=== PATIENT | female | born 1955 | race Caucasian/White ===

== ENCOUNTER 2021-11-14 08:15 | Day surgery (SDC) | payer OTHER ==
[2021-11-14 08:49] VITALS: BP 102/63; TEMP 97.8; O2SAT 100; BMI 22.6
[2021-11-14 08:51] LABS: MPV 8.3 fL (7.6-11.3)
[2021-11-14 09:12] LABS: Protime INR 0.94
--- NOTE | 2021-11-14 11:59 | RAD REPORT ---
EXAM DESCRIPTION: CT - Spine Lumbar Wo Con - 11/14/2021 10:37 am CLINICAL HISTORY: Radiculopathy. MYELOGRAM SCAN PROTOCOL COMPARISON: No relevant comparisons available. TECHNIQUE: Axial noncontrast CT imaging of the lumbar spine was performed with coronal and sagittal re-formatted images. Myelogram protocol was utilized, however injection of contrast could not be perf ormed due to national shortage of the contrast material. All CT scans are performed using dose optimization technique as appropriate and may include automated exposure control or mA/KV adjustment according to patient size. FINDINGS: Postsurgical changes are present with hardware spanning L3 and L4. Stimulator wiring is pr esent. There is laminectomy noted at L3 and L4. 8 mm degenerative anterolisthesis of L4 on 5 is prese nt. Paraspinal tissues are normal in thickness. No paraspinal abscess or hematoma seen. There is no evidence of a significant canal or foraminal stenosis at any level. Go facet hypertrophy changes are noted at L4-5 and L5-S1. IMPRESSION: Exam was limited as there is currently a shortage of appropriate myelographic contrast m aterial and does we were unable to perform myelographic contrast injection at this time. This was dis cussed with the patient in person. Postoperative changes are present with hardware in place at C3-4. No hardware complication. Stimulato r device is present. Degenerative anterolisthesis is present of 8 mm of L4 on 5. Prominent facet hypertrophy is noted at L 4-5 bilaterally and L5-S1. No finding indicate high-grade canal stenosis or foraminal stenosis at any level.
== END 2021-11-14 10:38 | disposition home or self-care (01) ==
LOC: DS 08:15
PROVIDERS: ATTEND Anesthesiology
DX: M54.17 Radiculopathy, lumbosacral region (principal)
CPT/HCPCS: 36415; 72131; 85049; 85610; 85730

== ENCOUNTER 2021-11-28 21:54 | Emergency (ER) | payer OTHER ==
--- OUTSIDE RECORDS SUMMARY | 2021-11-28 22:07 | XMS REPORT | Continuity of Care Document ---
:1955 Author Organization [facility] t Address [address] [place] [address] Care Team Providers Name Role Phone MICHAEL ALBARRAN Primary Care Physician Unavailable LATISHA UP Attending Clinician Unavailable Michael Albarran MD Attending Clinician Jose Hernandez Attending Clinician BROWN_Sudhir_Keith_ Attending Clinician Unavailable Apryl Brizuela CMA Attending Clinician Unavailable Sami Moore MD Attending Clinician Abdiaziz_Pam Attending Clinician Unavailable Nae Nick MD Attending Clinician Rick Alex MD Attending Clinician MICHAEL ALBARRAN Attending Clinician Unavailable CAT HAAS Attending Clinician Unavailable SYSTEM, PROVIDER NOT IN Attending Clinician Unavailable GLADIS DALEY Attending Clinician Unavailable ABIMAEL PETTIT Attending Clinician Unavailable SAMI MOORE Attending Clinician Unavailable THIEN COCHRAN Attending Clinician Unavailable Yung Cole Attending Clinician Gaurav Jean Attending Clinician Melquiades Moore Attending Clinician Korin Lopez Attending Clinician Gaurav Montes De Oca Attending Clinician Rosey Foster Attending Clinician Sami Moore Attending Clinician Gladis Daley Attending Clinician BROWN_Sudhir_Keith_ Admitting Clinician Unavailable Senan_S Admitting Clinician Unavailable Nae Nick MD Admitting Clinician Payers Payer Name Policy Type Policy Number Effective Date Expiration Date S ourmarjan [place] ANTHEM [id number] 2021 00:00:00 BCBS (PPO) BCBS OS [id number] 2017 00:00:00 POS/PPO/EPO Problems Condition Condition Condition Status Onset Resolution Last Treating Co mments Source Name Details Category Date Date Treatment Clinician Date M54.17=RAD M54.17=RA Diagnosis Active 2021-11-25 Memoria ICULOPATHY DICULOPATH 11-12 09:45:00 l , Y, 00:00: [facility] LUMBOSACRA LUMBOSACRA 00 L REGION L REGION Active 11/12/2021 [facility] Lumbar Lumbar Disease Active 2018-03 Methodi radiculopa radiculopa 0-08 st thy thy 00:00: Hospita 00 l Peripheral Peripheral Disease Active 2018-03 M ethodi polyneurop polyneurop 0-08 st athy athy 00:00: Hospita 00 l I82.402 - I82.402 Diagnosis Active 2018-11-22 Memoria ACUTE - ACUTE 07-28 18:08:00 l EMBOLISM EMBOLISM 00:01: Delroy n AND AND 00 THOMBOS THOMBOS UNS UNS Active 07/28/2018 [facility] [place] Z12.31 - Z12.31 - Diagnosis Active 2017-08-27 Memoria ENCNTR ENCNTR 2-12 19:14:00 l SCREEN SCREEN 00:01: Jeffery MAMMOGRAM MAMMOGRAM 00 FOR MA FOR MA Active 04/19/2017 [facility] [place] SNAKE BITE SNAKE Diagnosis Active 2016-10-04 Memoria L FT BITE L FT 10-04 16:21:00 l Active 07:00: [facility] 10/04/2016 00 [facility] Vision Vision Disease Active [facility] Center Insomnia, Insomnia, Disease Active [facility] unspecifie unspecifie 3-27 Shannen kes d type d type 00:00: Medical 00 Center Elevated Elevated Disease Active [facility] random random 04-05 [facility] blood blood 00:00: Medical glucose glucose 00 Center level level Irritable Irritable Disease Active [facility] 04-05 [facility] 00 Center Gastroesop Gastroesop Disease Active [facility] hageal hageal 1- [facility] reflux reflux 00:00: Medical disease disease 00 Center without without esophagiti esophagiti s s Primary Primary Disease Active [facility] insomnia insomnia - [facility] 00:[facility] 00 Center Acute Acute Disease Active [facility] maxillary maxillary 1- Luke s sinusitis, sinusitis, 00:00: Me dical recurrence recurrence 00 Ce nter not not specified specified Intractabl Intractabl Disease Active 2015-03 M ethodi e chronic e chronic 0-20 st migraine migraine 00:00: Hospit a without without 00 l aura aura Chronic Chronic Disease Active 2015-03 Methodi neck pain neck pain 0-20 st 00:00: Hospita 00 l Muscle Muscle Disease Active 2015-03 Overview: Method i spasm spasm 0-[address] 00:00: g of this Hospita 00 note l might be different from the original. "Muscle Spasms of Head AND/OR Neck" Paresthesi Paresthesi Disease Active 2015-03 M ethodi a of lower a of lower 0-20 st extremity extremity 00:00: Hosp alicia 00 l Spasm of Spasm of Disease Active 2015-03 Metho di back back 0-20 st muscles muscles 00:00: Hospita 00 l Cervical Cervical Disease Active [facility] herniated herniated 8-04 [facility] disc disc 00:00: Medical 00 Center Cervical Cervical Disease Active [facility] spondylosi spondylosi 8-03 Shannen kes s without s without 00:00: Medi chanell myelopathy myelopathy 00 Ce nter Acute neck Acute neck Disease Active [facility] pain pain 8-03 [facility] 00:[facility] 00 Center Herniation Herniation Disease Active [facility] of of 10-08 [facility] cervical cervical 00:00: Medica l interverte interverte 00 Ce nter bral disc bral disc with with radiculopa radiculopa thy thy PINCHED PINCHED Diagnosis Active 2015-09-08 Memoria NERVE IN NERVE IN 09-07 07:25:00 l NECK NECK 00:00: Jeffery Active 00 09/08/2015 [facility] PAIN IN RT PAIN IN Diagnosis Active 2015-08-27 Memoria HAND RT HAND 08-25 15:38:00 l Active 00:00: Jeffery 08/26/2015 00 [facility] Colitis Colitis Disease Active [facility] 3[facility]03 [facility] 00[facility] 00 Center Diarrhea Diarrhea Disease Active [facility] 00 Center Nausea and Nausea and Disease Active [facility] vomiting vomiting 3-03 [facility] 00:[facility] 00 Center Restless Restless Disease Active [facility] leg leg 3[facility]03 [facility] syndrome syndrome 00:00: Medica l 00 Center Anxiety Anxiety Disease Active [facility] 3[facility] 00[facility]: [facility] 00 Center Lumbago Lumbago Disease Active [facility] 3[facility]03 [facility] 00 Center Chronic Chronic Disease Active [facility] pain pain 3-03 [facility] 00[facility]: [facility] 00 Center Dehydratio Dehydratio Disease Active [facility] n n 3-02 [facility] 00:00: Medical 00 Hensel 724.2 724.2 Diagnosis Active 2013-032015-06-06 Mem oria Active 03-21 07:29:00 l 01/19/2014 00:00: [place] alegre The 00 [place] 724.4 724.4 Diagnosis Active 2013-032013-12-28 Mem oria Active 14:59:00 l 12/28/2013 00:00: [place] alegre The 00 [place] 724.4, 724.4, Diagnosis Active 2013-032015-03-05 M emoria 996.40, 996.40, 0-23 16:20:00 l 724.02 724.02 00:00: Jeffery Active 00 12/28/2013 [facility] 351.9 - 351.9 - Diagnosis Active 2014-09-27 Memoria FACIAL FACIAL 7-14 11:03:00 l NERVE DI NERVE DI 00:01: Delroy n Active 00 09/18/2013 [facility] [place] 338.18 - 338.18 - Diagnosis Active 2014-09-27 Memoria ACUTE ACUTE 7- 10:56:00 l POSTOP PA POSTOP PA 00:01: Herm justo 724.4 - 724.4 - 00 LUMBOSA LUMBOSA [facility]06/[facility] LUMBAR Diagnosis Active 2014-09-17 Me moria SPONDYLOSI SPONDYLOSI 08-07 16:05:00 l S S Active 00:00: Jeffery 08/07/2013 00 [facility] V76.12 - V76.12 - Diagnosis Active 2013-10-31 Memoria SCREEN SCREEN - 23:18:00 l MAMMOGRA MAMMOGRA 00:01: Delroy n Active 00 09/27/2012 [facility] [place] V76.11 - V76.11 - Diagnosis Active 2013-10-31 Memoria SCREEN SCREEN 3- 23:18:00 l MAMMOGRA MAMMOGRA 00:01: Delroy n Active 00 06/01/2012 [facility] Backache Backache Problem Active 2019-02-27 Memoria (finding) (finding) 00:33:41 l Active Jeffery Problem 02/27/2019 [facility], [facility] Retention Retention Problem Active 2019-02-27 Memoria of urine of urine 00:33:41 l (disorder) (disorder) He rmann Active Problem 02/27/2019 [facility]N HTN Problem Active 2019-11-03 Memor ia (hypertens (hypertens 02:45:06 l ion) ion) Jeffery Active Problem 11/03/2019 [facility] GERD GERD Problem Active 2015-07-13 Memor ia (gastroeso (gastroeso 02:50:20 l phageal phageal Jeffery reflux reflux disease) disease) Active Problem 07/13/2015 [facility] Restless Restless Problem Active 2015-07-13 Memoria legs legs 02:50:20 l syndrome syndrome Delroy n [RLS] [RLS] Active Problem 07/13/2015 [facility] Peripheral Periphera Problem Active 2015-07-13 Memoria autonomic l 02:50:20 l neuropathy autonomic Her aldridge in neuropathy disorders in classified disorders elsewhere classified elsewhere Active Problem 07/13/2015 [facility] Gastropare Problem Active 2015-07-13 M emoria sis Gastropare 02:50:20 l sis Active Delroy n Problem 07/13/2015 [facility] Iron Iron Problem Active 2015-07-13 Memor ia deficiency deficiency 02:50:20 l anemia anemia [facility] Active Problem 07/13/2015 [facility] Lumbar Lumbar Problem Active 2015-07-13 Raúl holland radiculiti radiculiti 02:50:20 l s s Active [facility] Problem 07/13/2015 [facility] Anxiety Anxiety Problem Active 2015-07-13 Me moria state state 02:50:20 l Active [facility] Problem 07/13/2015 [facility] Chronic Chronic Problem Active 2015-07-13 Me moria pain pain 02:50:20 l syndrome syndrome Delroy n Active Problem 07/13/2015 [facility] Generalize Generaliz Problem Active 2015-07-13 Memoria d ed 02:50:20 l osteoarthr osteoarthr He wilber becker osis, involving involving multiple multiple sites sites Active Problem 07/13/2015 [facility] Insomnia, Insomnia, Problem Active 2015-07-13 Memoria unspecifie unspecifie 02:50:20 l d d Active Jeffery Problem 07/13/2015 [facility] Depressive Problem Active 2015-07-13 M emoria disorder Depressive 02:50:20 l disorder Jeffery Active Problem 07/13/2015 [facility] Mixed Mixed Problem Active 2021-04-01 Memor ia anxiety anxiety 08:01:21 l and and Jeffery depressive depressive disorder disorder (disorder) (disorder) Active Problem 04/01/2021 [facility] Dysphagia Dysphagia Problem Active 2021-04-01 Memoria (disorder) (disorder) 08:01:21 l Active Jeffery Problem 04/01/2021 [facility] Gastroesop Gastroeso Problem Active 2021-04-01 Memoria hageal phageal 08:01:21 l reflux reflux Jeffery disease disease (disorder) (disorder) Active Problem 04/01/2021 [facility] [place], [facility] History of History Problem Active 2021-04-01 Memoria - migraine of - 08:01:21 l (context-d migraine Herm justo ependent (context-d category) ependent category) Active Problem 04/01/2021 [facility] Pain in Pain in Problem Active 2021-04-01 Me moria bilateral bilateral 08:01:21 l legs legs Jeffery (finding) (finding) Active Problem 04/01/2021 worse in right leg [facility] Recurrent Problem Active 2021-04-01 Me moria urinary Recurrent 08:01:21 l tract urinary Jeffery infection tract (disorder) infection (disorder) Active Problem 04/01/2021 [facility] Carpal Carpal Problem Active 2021-11-21 Raúl holland tunnel tunnel 05:23:40 l syndrome syndrome Dleroy n (disorder) (disorder) Active Problem 11/21/2021 [facility] Cervical Cervical Problem Active 2021-11-21 Memoria spondylosi spondylosi 05:23:40 l s s [facility] (disorder) (disorder) Active Problem 11/21/2021 [facility] Migraine Migraine Problem Active 2021-11-21 Memoria without without 05:23:40 l aura aura [facility] (disorder) (disorder) Active Problem 11/21/2021 [facility] Peripheral Periphera Problem Active 2021-11-21 Memoria nerve l nerve 05:23:40 l disease disease Jeffery (disorder) (disorder) Active Problem 11/21/2021 [facility] Postproced Postproce Problem Active 2021-11-21 Memoria ural state dural 05:23:40 l finding state [facility] (finding) finding (finding) Active Problem 11/21/2021 [facility] Neuro LUMBOSACRA LUMBOSACR Diagnosis Active 2014-09-17 Memoria L AL 16:05:00 l SPONDYLOSI SPONDYLOSI He wilber S S Active [facility] LUMBAR LUMBAR Diagnosis Active 2014-09-17 Me moria DISC DISC 16:05:00 l DISPLACEME DISPLACEME He wilber NT NT Active [facility] RADICULOPA Diagnosis Active 2021-11-25 Memoria THY, RADICULOPA 09:45:00 l LUMBOSACRA THY, Delroy n L REGION LUMBOSACRA L REGION Active [facility] History of Past Illness Condition Condition Condition Status Onset Resolution Last Treating Co mments Source Name Details Category Date Date Treatment Clinician Date Other Other Problem 2016-10-07 2016-10-07 M shira injury of injury of 10-04 00:37:18 00:37:18 l unspecifie unspecifie 05:00: Jc agosto body d body 00 region region 10/04/2016 7 [facility] Discharge Discharge Problem 2015-09-11 2015-09-11 Memoria Diagnosis: Diagnosis: 09-07 00:29:54 00:29:54 l Arm Arm 05:00: Jeffery paresthesi paresthesi 00 a, right a, right 09/08/2015 09/11/2015 [facility] Discharge Discharge Problem 2015-09-11 2015-09-11 Memoria Diagnosis: Diagnosis: 09-07 00:29:54 00:29:54 l Arm pain Arm pain 05:00: Delroy alegre 09/08/2015 00 09/11/2015 [facility] Discharge Discharge Problem 2015-09-11 2015-09-[facility] Diagnosis: Diagnosis: 09-07 00:29:54 00:29:54 l Neuropathi Neuropathi 05:00: Jc schwarz pain c pain 00 09/08/2015 09/11/2015 [facility] Discharge Discharge Problem 2015-08-30 2015-08-30 Memoria Diagnosis: Diagnosis: 08-25 03:16:15 03:16:15 l Osteoarthr Osteoarthr 05:00: Jc merino itis itis 00 08/26/2015 08/30/2015 [facility] Allergies, Adverse Reactions, Alerts Allergy Allergy Status Severity Reaction(s) Onset Inactive Treating Comm ents Source Name Type Date Date Clinician OXCARBAZ Allergy Active [facility] EPINE 6-23 [facility]: [facility] 00 Center Oxcarbaz Drug Active [facility] epine Allergy 6-23 [facility] 00:[facility]: Medical 00 Center Tapentad Propensi Active Unknown 2018-03 Metho di ol ty to Reaction 0-08 st adverse 00:00: Hospita reaction 00 l s to drug Oxcarbaz Propensi Active Unknown 2018-03 Metho di epine ty to Reaction 0-08 st adverse 00:00: Hospita reaction 00 l s to drug LAMOTRIG Allergy Active 2016-[address] [facility] [facility] INE 0-12 [facility] 00:00: Medical 00 Center Lamotrig Drug Active 2016-[address] ine Allergy 0-12 reaction( [facility] 00:00: s): Medical 00 unknown Center Codeine Propensi Active Nausea And 2015-03 Met hodi ty to Vomiting 0-20 st adverse 00:00: Hospita reaction 00 l s to drug Gabapent Propensi Active 2015-03 Gabapenti Met hodi in ty to 0-[address] adverse 00:00: [alc-cindi Hospit a reaction 00 pentin]: l s to Other drug reaction( s):Blurry vision Pregabal Propensi Active 2015-03 Other Method i in ty to 0-20 reaction( st adverse 00:00: s): Other Hospit a reaction 00 (See l s to Comments) drug Blurry visionOth er reaction( s): Other (See Comments) Blurry vision Tramadol Propensi Active Anaphylaxis 2015-03 M ethodi ty to 0-20 st adverse 00:00: Hospita reaction 00 l s to drug CODEINE Allergy Active Med N\\T\\V [facility] 10-29 00:00: 00 Codeine Propensi Active Nausea And [facility] ty to Vomiting 10-29 [facility] adverse 00:00: Medical reaction 00 Center s GABAPENT Allergy Active High Anaphylaxis [facility] IN 10-08 00:00: 00 TRAMADOL Allergy Active High Anaphylaxis 2015- [facility] 10-08 00:00: 00 Gabapent Drug Active Anaphylaxis, Blurry [facility] in Allergy Itching 10-08 visionOth [facility] 00:00: er Medical 00 reaction( Center s): decreases eyesight, Swelling of throat Tramadol Propensi Active Anaphylaxis 2015- [facility] ty to 10-08 [facility] adverse 00:00: Medical reaction 00 Center s PREGABAL Allergy Active Low Other [facility] IN 09-15 00:00: 00 Pregabal Drug Active Other (See Blurry [facility] in Allergy Comments), 09-15 visionBlu Shannen kes Itching, 00:00: rry Medical Anaphylaxis 00 visionOth Ce nter er reaction( s): decreases eyesight, Other Dilaudid Dilaudid Active Memori a l [facility] gabapent gabapent Active Memori a in in l Jeffery traMADol traMADol Active Memori a l Jeffery Lyrica Lyrica Active Severe Itching Memoria (finding), l Pharyngeal Delroy n swelling (finding) Family History Family Member Diagnosis Comments Start Date Stop Date Source Natural father Prostate cancer [facility] Natural father Arthritis [facility] Natural father Prostate cancer [facility] Natural mother Heart disease [facility] Natural mother Arthritis [facility] Natural mother Migraines [facility] Social History Social Habit Start Date Stop Date Quantity Comments Source History of tobacco Cigarette Smoker [facility] use [facility] Social History 2021-11-18 2021-11-18 [facility] 18:40:07 18:40:07 Alcohol intake 2021-08-28 2021-08-28 Current [facility] 00:00:00 00:00:00 non-drinker of Medical Ce nter alcohol (finding) Cigarettes smoked 2014-12-27 2014-12-27 [facility] Miguel Angel current (pack per 00:00:00 00:00:00 [facility] day) - Reported Cigarette 2014-12-27 2014-12-[address] [facility] [address] Luba pack-years 00:00:00 00:00:00 [facility] Tobacco use and 2014-12-27 2014-12-27 Never used [facility] St Shannen arriolas exposure 00:00:00 00:00:00 [facility] TobaccoUse: 2014-05-07 2014-05-07 [facility] 00:00:00 00:00:00 [birth year] [facility] [address] Shannen cosme 00:00:00 00:00:00 [facility] Smoking Status Start Date Stop Date Source Social History [facility] Medications Ordered Filled Start Stop Current Ordering Indication Dosage Frequency Signature Comments Components Source Medication Medication Date Date Medication? Clinician (SIG) Name Name Imitrex 100 Yes 100 mg = 1 Memoria mg oral 9-13 tab, PO, l tablet 19:15: Daily, PRN Christy nn 00 for migraine headache, # 9 tab, 0 Refill(s) topiramate Yes TAKE 1 Memor ia 100 mg oral 9-13 TABLET BY l tablet 18:43: MOUTH IN Jeffery 00 THE MORNING AND 2 TABLETS IN THE EVENING celecoxib Yes TAKE 1 Memori a 200 mg oral 9-13 CAPSULE BY l capsule 18:43: MOUTH ONCE Herm justo 00 DAILY baclofen 20 Yes TAKE 1 Raúl holland mg oral 9-13 TABLET BY l tablet 18:43: MOUTH [facility] 00 THREE TIMES DAILY rOPINIRole Yes TAKE 1 Memor ia 2 mg oral 9-13 TABLET BY l tablet 18:43: MOUTH Jeffery 00 THREE TIMES DAILY diazepam 10 Yes TAKE 1 Raúl holland mg oral 9-13 TABLET BY l tablet 18:43: MOUTH Jeffery 00 EVERY 8 HOURS NEEDED FOR ANXIETY . DO NOT EXCEED 3 PER 24 HOURS nitrofurant Yes 100 mg, Mem oria oin 13 PO, BID, # l 18:42: 14 cap, 0 00 Refill(s) omeprazole Yes PO, Daily, M emoria 9-13 0 l 18:41: Refill(s) Jeffery 00 ondansetron Yes ALLOW ONE [facility] (ZOFRAN-ODT 11-11 (1) TABLET Shannen kes ) 4 MG 00:00: TO Medical disintegrat 00 DISSOLVE Cent er ing tablet ON THE TONGUE EVERY 4 HOURS. ondansetron Yes ALLOW ONE [facility] (ZOFRAN-ODT 9-06 (1) TABLET Shannen kes ) 4 MG 00:00: TO Medical disintegrat 00 DISSOLVE Cent er ing tablet ON THE TONGUE EVERY 4 HOURS. topiramate Yes Persistent TAKE [address] [facility] (TOPAMAX) 9- headaches TABLET BY [facility] 100 MG 00:00: MOUTH IN Medical tablet 00 THE Center MORNING AND 2 TABLETS IN THE EVENING topiramate Yes Persistent TAKE [address] [facility] (TOPAMAX) 9-02 headaches TABLET BY [facility] 100 MG 00:00: MOUTH IN Medical tablet 00 THE Center MORNING AND 2 TABLETS IN THE EVENING diazePAM Yes Anxiety 10mg Take [address] [facility] (VALIUM) 10 -09 tablet (10 Shannen kes MG tablet 00:00: mg total) Med ical 00 by mouth Center every 8 (eight) hours as needed for Anxiety. Max Daily Amount: 30 mg diazePAM 2022-0 Yes Anxiety 10mg Take [address] [facility] (VALIUM) 10 -09 tablet (10 Shannen kes MG tablet 00:00: mg total) Med ical 00 by mouth Center every 8 (eight) hours as needed for Anxiety. Max Daily Amount: 30 mg diazePAM 2021- No TAKE [address] [facility] [facility] (VALIUM) 10 10-13-09 TABLET BY Shannen kes MG tablet 00:00: 00:00 MOUTH Medica l 00 :00 EVERY 8 Center HOURS NEEDED FOR ANXIETY . MAX 3 TABLETS PER DAY diazePAM 2021- No TAKE [address] [facility] (VALIUM) 10 10-13- TABLET BY Shannen kes MG tablet 00:00: 00:00 MOUTH Medica l 00 :00 EVERY 8 Center HOURS NEEDED FOR ANXIETY . MAX 3 TABLETS PER DAY estradioL 2022- Yes 2g QD [address] (ESTRACE) 10-09 vaginally Luke s 0.01 % (0.1 00:00: 23:59 daily. Med ical mg/gram) 00 :00 Center vaginal cream estradioL 2022- Yes [address]g QD [address] (ESTRACE) 10-09 vaginally Luke s 0.01 % (0.1 00:00: 23:59 daily. Med ical mg/gram) 00 :00 Center vaginal cream conjugated 2021- No Vaginal Apply pea [facility] estrogens 10-06 pain sized [facility] (Premarin) 00:00: 00:00 amount to M edical 0.625 00 :00 affected Center mg/gram area three vaginal times cream daily.. conjugated 2021- No Vaginal Apply pea [facility] estrogens 10-06 pain sized [facility] (Premarin) 00:00: 00:00 amount to M edical 0.625 00 :00 affected Center mg/gram area three vaginal times cream daily.. nitrofurant Yes Neck pain 100mg Q.5D Take [address] [facility] oin, 7-19 capsule [facility]ukes macrocrysta 00:00: (100 mg Med ical l-monohydra 00 total) by [place] ter te, mouth 2 (MACROBID) (two) 100 MG times capsule daily. rOPINIRole Yes Restless 2mg [id number] Take [address] [facility] (REQUIP) 2 7-19 leg [id number] tablet (2 [facility] MG tablet 00:00: syndrome 3D mg total) Medical 00 by mouth 3 Center (three) times daily. nitrofurant Yes Neck pain 100mg Q.5D Take [address] [facility] oin, 09-23 capsule [facility] macrocrysta 00:00: (100 mg Med ical l-monohydra 00 total) by [place] ter te, mouth 2 (MACROBID) (two) 100 MG times capsule daily. rOPINIRole Yes Restless 2mg Q.[id number] Take [address] [facility] (REQUIP) 2 7-19 leg [id number] tablet (2 [facility] MG tablet 00:00: syndrome 3D mg total) Medical 00 by mouth 3 Center (three) times daily. ciprofloxac 2021- No Dysuria 500mg Q.5D Take [address] in HCl 09-01- tablet [facility] (Cipro) 500 00:00: 23:59 (500 mg Me dical MG tablet 00 :00 total) by Cente r mouth 2 (two) times daily for 10 days. ciprofloxac 2021- No Dysuria 500mg Q.5D Take [address] [facility] in HCl 09-01-07 tablet [facility] (Cipro) 500 00:00: 23:59 (500 mg Me dical MG tablet 00 :00 total) by Cente r mouth 2 (two) times daily for 10 days. morphine 2021- No 5mg Take [address] [facility] (MSIR) 15 08-28- by mouth [facility] MG tablet 12:00: 00:00 every 4 Medi chanell 52 :00 (four) Center hours as needed for Pain. morphine 2021- No 5mg Take [address] (MSIR) 15 08-28- by mouth [facility] MG tablet 12:00: 00:00 every 4 Medi chanell 52 :00 (four) Center hours as needed for Pain. esomeprazol 2021- No [address] [facility] e (NEXIUM) 08-28- [facility] 40 MG 12:00: 00:00 Medical capsule 15 :00 Center esomeprazol 2022-0 2022- No [address] [facility] e (NEXIUM) 6-23 06-23 [facility] 40 MG 12:00: 00:00 Medical capsule 15 :00 Center nitrofurant 2021-0 Yes 100mg Take [address] oin 6-23 mg by [facility] (MACRODANTI 11:08: mouth as Me dical N) 100 MG 55 needed. Center capsule amoxicillin 2021-0 Yes 1{tbl} [id number] Take [address] -clavulanat 6-23 [id number] tablet by Lukes e 11:08: 3D mouth 3 Medical (AUGMENTIN) 55 (three) Cente r 500-125 mg times per tablet daily. nitrofurant 2021-0 Yes 100mg Take [address] oin 6-23 mg by [facility] (MACRODANTI 11:08: mouth as Me dical N) 100 MG 55 needed. Center capsule amoxicillin 2021-0 Yes 1{tbl} Q.[id number] Take [address] -clavulanat 6-23 [id number] tablet by [facility]ukes e 11:08: 3D mouth 3 Medical (AUGMENTIN) 55 (three) Cente r 500-125 mg times per tablet daily. BIFIDOBACTE 2021-0 Yes Take by [facility] RIUM 6-23 mouth. [facility] INFANTIS 11:08: Medical (ALIGN 16 Center ORAL) BIFIDOBACTE 2021-0 Yes Take by [facility] RIUM 6-23 mouth. [facility] INFANTIS 11:08: Medical (ALIGN 16 Center ORAL) sulfamethox 2021-0 Yes Dysuria 160mg{t Q.5D Take [address] azole-trime 6-23 rimetho tablet Anayeli gay thoprim 00:00: prim} (160 mg of Med ical (BACTRIM 00 trimethopr Cente r DS) 800-160 im total) mg per by mouth 2 tablet (two) times daily. bromphenira 0 Yes Cough 5mL Take [address] mine-pseudo 6-23 by mouth Jamison s eph-DM 00:00: every 6 Medical 2-30-10 00 (six) Center mg/5 mL hours as Syrp needed. sulfamethox 2021-0 Yes Dysuria 160mg{t Q.5D Take [address] azole-trime 6-23 rimetho tablet Anayeli es thoprim 00:00: prim} (160 mg of Med ical (BACTRIM 00 trimethopr Cente r DS) 800-160 im total) mg per by mouth 2 tablet (two) times daily. bromphenira Yes Cough 5mL Take [address] mine-pseudo 08-28 by mouth Luke s eph-DM 00:00: every 6 Medical 2-30- 00 (six) Center mg/5 mL hours as Syrp needed. omeprazole 2022- No GERD 20mg QD Take [address] [facility] [facility] (PriLOSEC 08-28 without tablet (20 [facility] OTC) 20 MG 00:00: 23:59 esophagitis mg total) Medical tablet 00 :00 by mouth Center daily. omeprazole 2022- No GERD 20mg QD Take [address] [facility] (PriLOSEC 08-28 without tablet (20 [facility]) 20 MG 00:00: 23:59 esophagitis mg total) Medical tablet 00 :00 by mouth Center daily. SUMAtriptan Yes Persistent TAKE ONE [facility] (IMITREX) 5-17 headaches (1) TABLET [facility] 100 MG 00:00: (100 MG Medical tablet 00 TOTAL) BY Center MOUTH 2 (TWO) TIMES DAILY NEEDED. celecoxib Yes TAKE ONE [facility] (CeleBREX) 5-17 (1) [facility] 200 MG 00:00: CAPSULE BY Medic al capsule 00 MOUTH Center DAILY. SUMAtriptan Yes Persistent TAKE ONE [facility] (IMITREX) 5-17 headaches (1) TABLET [facility] 100 MG 00:00: (100 MG Medical tablet 00 TOTAL) BY Center MOUTH 2 (TWO) TIMES DAILY NEEDED. celecoxib Yes TAKE ONE [facility] (CeleBREX) 5-17 (1) [facility] 200 MG 00:00: CAPSULE BY Medic al capsule 00 MOUTH Center DAILY. topiramate 2021- No Persistent TAKE ONE [facility] (TOPAMAX) 5-03 09-02 headaches (1) [facility] 100 MG 00:00: 00:00 TABLET(S) Medic al tablet 00 :00 BY MOUTH Center EVERY MORNING AND 2 TABLETS IN THE EVENING. topiramate 2022-0 2022- No Persistent TAKE ONE [facility] (TOPAMAX) 07-08 09-02 headaches (1) [facility] 100 MG 00:00: 00:00 TABLET(S) Medic al tablet 00 :00 BY MOUTH Center EVERY MORNING AND 2 TABLETS IN THE EVENING. diazePAM 2021- No 10mg TAKE [address] [facility] (VALIUM) 10 07-08 08-08 TABLET (10 [facility] MG tablet 00:00: 00:00 MG TOTAL) Me dical 00 :00 BY MOUTH Center EVERY 8 (EIGHT) HOURS NEEDED FOR ANXIETY. MAX DAILY AMOUNT: 30 MG diazePAM 2021- No 10mg TAKE [address] [facility] (VALIUM) 10 07-08 08-08 TABLET (10 [facility] MG tablet 00:00: 00:00 MG TOTAL) Me dical 00 :00 BY MOUTH Center EVERY 8 (EIGHT) HOURS NEEDED FOR ANXIETY. MAX DAILY AMOUNT: 30 MG rOPINIRole 2021- No TAKE ONE [facility] (REQUIP) 2 05-28 07-19 (1) [facility] tablet 00:00: 00:00 TABLET(S) Me dical 00 :00 BY MOUTH Center THREE TIMES A DAY. rOPINIRole 0 2021- No TAKE ONE [facility] (REQUIP) 2 - 07-19 (1) [facility] tablet 00:00: 00:00 TABLET(S) Me dical 00 :00 BY MOUTH Center THREE TIMES A DAY. baclofen Yes [facility] (LI[facility] 3-15 (1) TABLET [facility] 20 MG 00:00: (20 MG Medical tablet 00 TOTAL) BY Center MOUTH 3 (THREE) TIMES DAILY. baclofen 0 Yes [facility] ONE [facility] ([facility] 3-15 (1) TABLET [facility] 20 MG 00:00: (20 MG Medical tablet 00 TOTAL) BY Center MOUTH 3 (THREE) TIMES DAILY. sumatriptan 0 Yes INJECT 0.[address] [facility] (IMITREX) 6 3-13 ML(S) [facility] mg/0.5 mL 00:00: SUBCUTANEO Me dical Soln 00 USLY DAILY Center injection NEEDED FOR 30 DAYS. sumatriptan 2021-0 Yes INJECT 0.[address] [facility] (IMITREX) 6 3-13 ML(S) [facility] mg/0.5 mL 00:00: SUBCUTANEO Me dical Soln 00 USLY DAILY Center injection NEEDED FOR 30 DAYS. baclofen 2021- No TAKE [address] [facility] (LIORESAL) 3-13 03-15 TABLET (20 [facility] k[facility] 20 MG 00:00: 00:00 MG TOTAL) Medica l tablet 00 :00 BY MOUTH 3 Center (THREE) TIMES DAILY FOR 90 DAYS. baclofen 2021- No TAKE [address] [facility] (LIORESAL) 3 03-15 TABLET (20 Sh[facility]en kes 20 MG 00:00: 00:00 MG TOTAL) Medica l tablet 00 :00 BY MOUTH 3 Center (THREE) TIMES DAILY FOR 90 DAYS. methylPREDN 2022- No Acute URI 4mg QD Take [address] [facility] ISolone 3- 03-03 tablet (4 [facility] (MEDROL 00:00: 23:59 mg total) Medi [facility] DOSEPACK) 4 00 :00 by mouth Cent er mg tablet daily follow package directions . methylPREDN 2022- No Acute URI 4mg QD Take [address] [facility] ISolone 3- 03-03 tablet (4 [facility] (MEDROL 00:00: 23:59 mg total) Medi [facility] DOSEPACK) 4 00 :00 by mouth Cent er mg tablet daily follow package directions . AZITHROmyci 2021- No Acute URI Take [address] [facility] n 3-05 11-27 tablets [facility] (Zithromax) 00:00: 00:00 (500 mg) M edical 250 MG 00 :00 on Day 1, Center tablet followed by 1 tablet (250 mg) once daily on Days 2 through 5.. AZITHROmyci 2021- No Acute URI Take [address] [facility] n 3-03 06-27 tablets [facility] (Zithromax) 00:00: 00:00 (500 mg) M edical 250 MG 00 :00 on Day 1, Center tablet followed by 1 tablet (250 mg) once daily on Days 2 through 5.. celecoxib 2021- No TAKE ONE [facility] (CeleBREX) 05-01 05-17 (1) [facility] 200 MG 00:00: 00:00 CAPSULE BY [facility]i [facility] capsule 00 :00 MOUTH Center DAILY. celecoxib 2021- No TAKE ONE [facility] (CeleBREX) - 05-17 (1) [facility] 200 MG 00:00: 00:00 CAPSULE BY [facility]i [facility] capsule 00 :00 MOUTH Center DAILY. diazePAM 2021- No 10mg Take [address] [facility] (VALIUM) 10 04-14-03 tablet (10 [facility] MG tablet 00:00: 00:00 mg total) Me dical 00 :00 by mouth Center every 8 (eight) hours as needed for Anxiety. Max Daily Amount: 30 mg diazePAM 2021- No 10mg Take [address] [facility] (VALIUM) 10 04-14- tablet (10 [facility] MG tablet 00:00: 00:00 mg total) Me dical 00 :00 by mouth Center every 8 (eight) hours as needed for Anxiety. Max Daily Amount: 30 mg furosemide 2021- No 20mg QD Take [address] [facility] (LASIX) 20 04-07 03-02 tablet (20 Shannen kes MG tablet 00:00: 23:59 mg total) Me dical 00 :00 by mouth Center daily for 30 days. furosemide 2021- No 20mg QD Take [address] [facility] (LASIX) 20 04-07 03-02 tablet (20 Shannen kes MG tablet 00:00: 23:59 mg total) Me dical 00 :00 by mouth Center daily for 30 days. lidocaine Yes APPLY ONE [facility] (LIDODERM) 1-27 (1) PATCH [facility] 5 % patch 00:00: TO SKIN Medic al 00 FOR 12 Center HOURS OVER AFFECTED AREA. lidocaine Yes APPLY ONE [facility] (LIDODERM) 1-27 (1) PATCH [facility] 5 % patch 00:00: TO SKIN Medic al 00 FOR 12 Center HOURS OVER AFFECTED AREA. nitrofurant 2021- No Neck pain 100mg Q.5D TAKE [address] [facility] oin, 125 07-19 CAPSULE [facility] macrocrysta 00:00: 00:00 (100 MG Me dical l-monohydra 00 :00 TOTAL) BY [facility] te, MOUTH 2 (MACROBID) (TWO) 100 MG TIMES capsule DAILY. nitrofurant 2021- No Neck pain 100mg Q.5D TAKE [address] [facility] oin, 04-01 07-19 CAPSULE [facility] macrocrysta 00:00: 00:00 (100 MG Me dical l-monohydra 00 :00 TOTAL) BY [place] [facility] te, MOUTH 2 (MACROBID) (TWO) 100 MG TIMES capsule DAILY. Toradol No Notes: [facility] 24 "Restricte l 16:22: d: No more [facility] 00 than 5 days of therapy from any route of administra tion." Saline Lock No 20 mL, Raúl holland Flush 24 Soln, IV l 16:04: Push, As [facility] 00 Indicated PRN for flush, first dose 03/31/21 10:04:00 [employer] Labetalol No 60, SBP Memor ia 1-24 Hold l 16:04: Parameter: Jeffery 00 less than 90 mmHg, HR Hold Parameter: less than 5... Hydralazine No 100, if Mem oria 24 HR<60 l 16:04: and/or Jeffery 00 labetalol 25mg reached., SBP Hold Parameter: less than 90 mmHg Demerol HCl No 12.5 mg = M emoria 1-24 0.5 mL, l 16:04: Injection, 00 IV Push, q5min PRN for shivers, order duration: 2 doses, first dose 03/31/21 10:04:00 [employer], stop date Limited # of times Morphine No 2.5 mg = Memor ia -24 0.63 mL, l 16:04: Injection, IV Push, q5min PRN for Pain Mild (1-3), order duration: 4 doses, first dose 03/31/21 10:04:00 [employer], stop date Limited # of times, Max dose 10mg; If pain still unrelieved notify Anesthesio logist Dilaudid No 0.5 mg = [facility] ia 1-24 0.5 mL, l 16:04: Injection, Jeffery 00 IV Push, q5min PRN for Pain Moderate (4-6), order duration: 4 doses, first dose 03/31/21 10:04:00 [employer], stop 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 If pain still unrelieved , notify Anesthesio logist Fentanyl 0 No 50 mcg = 1 Mem oria 1-24 mL, l 16:04: Injection, [facility] 00 IV Push, q5min PRN for pain severe (7-10), order duration: 2 doses, first dose 03/31/21 10:04:00 [employer], stop date Limited # of times, if pain still unrelieved after second dose, notify Anesthesio logist Ondansetron 0 No 4 mg = 2 Me moria 1-24 mL, l 16:04: Injection, Jeffery 00 IV Push, q15min PRN for nausea/vom iting, order duration: 2 doses, first dose 03/31/21 10:04:00 [employer], stop date Limited # of times promethazin 0 No 12.5 mg, Me moria e IVPB 1-24 Injection, l 16:04: IV [facility] 00 Piggyback, Once PRN for severe nausea, infuse over 15 minutes, first dose 03/31/21 10:04:00 [employer] Diphenhydra 0 No 12.5 mg = M emoria mine 1-24 0.25 mL, l 16:04: Injection, Jeffery 00 IV Push, q15min PRN for allergy symptoms, order duration: 2 doses, first dose 03/31/21 10:04:00 [employer], stop date Limited # of times Lidocaine 2021-0 No 5 mg = 0.5 Me moria pf IV start 1-24 mL, l 0.5mL 16:00: Injection, Delroy n [TOPS] 00 Subcutaneo us, Once, first dose 03/31/21 10:00:00 [employer], stop date 03/31/21 10:00:00 [employer], For IV Start Lactated 2021-0 No IV, start Raúl holland Ringers -24 date l Injection 15:55: 03/31/21 Herm justo 00 9:55:00 [employer], stop date 03/31/21 9:55:00 [employer] propofol 2021-0 No 270 mg = Memor ia 1-24 27 mL, l 15:51: Emulsion, Jeffery 00 IV, Once, first dose 03/31/21 9:51:00 [employer], stop date 03/31/21 9:51:00 [employer] lidocaine No 50 mg = [facility] 1-24 2.5 mL, l 15:29: Injection, [facility] 00 IV, Once, first dose 03/31/21 9:29:00 [employer], stop date 03/31/21 9:29:00 [employer] LR 1,000 mL No 1,000 mL, M emoria 1-24 IV, 100 l 15:16: mL/hr, [facility] 00 start date 03/31/21 9:16:00 [employer], For Adults unless there is a known renal disease then use Normal Saline, 1.59, m2 Pepcid No 20 mg = 2 Memori a 1-06 mL, l 23:00: Injection, Jeffery IV Push, Once, first dose 03/13/21 17:00:00 [employer], stop date 03/13/21 17:00:00 [employer] Continuous No 1,000 mL, Me moria LR Bolus 1-06 IV, BOLUS, l 1,000 mL 21:36: start date Her 03/13/21 15:36:00 [employer], 1.62, m2 Saline Lock No 20 mL, Raúl holland Flush 1-06 Soln, IV l 21:35: Push, As Indicated PRN for flush, first dose 03/13/21 15:35:00 [employer] Labetalol No 60, SBP Memor [facility] 1-06 Hold l 21:35: Parameter: [facility] 00 less than 90 mmHg, HR Hold Parameter: less than 5... Hydralazine No 100, if Mem oria 1-06 HR<60 l 21:35: and/or [facility] 00 labetalol 25mg reached., SBP Hold Parameter: less than 90 mmHg Demerol HCl No 12.5 mg = M emoria 1-06 0.5 mL, l 21:35: Injection, [facility] 00 IV Push, q5min PRN for shivers, order duration: 2 doses, first dose 03/13/21 15:35:00 [employer], stop date Limited # of times Morphine No 2.5 mg = Mem[facility] ia 1-06 0.63 mL, l 21:35: Injection, [facility] 00 IV Push, q5min PRN for Pain Mild (1-3), order duration: 4 doses, first dose 03/13/21 15:35:00 [employer], stop date Limited # of times, Max dose 10mg; If pain still unrelieved notify Anesthesio logist Dilaudid 2021-0 No 0.5 mg = Mem[facility] ia 1-06 0.5 mL, l 21:35: Injection, Jeffery 00 IV Push, q5min PRN for Pain Moderate (4-6), order duration: 4 doses, first dose 03/13/21 15:35:00 [employer], stop 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 If pain still unrelieved , notify Anesthesio logist Fentanyl 0 No 50 mcg = 1 Mem oria 1-06 mL, l 21:35: Injection, Jeffery 00 IV Push, q5min PRN for pain severe (7-10), order duration: 2 doses, first dose 03/13/21 15:35:00 [employer], stop date Limited # of times, if pain still unrelieved after second dose, notify Anesthesio logist Ondansetron 0 No 4 mg = 2 Me moria 1-06 mL, l 21:35: Injection, [facility] 00 IV Push, q15min PRN for nausea/vom iting, order duration: 2 doses, first dose 03/13/21 15:35:00 [employer], stop date Limited # of times promethazin 2021-0 No 12.5 mg, Me moria e IVPB 1-06 Injection, l 21:35: IV [facility] 00 Piggyback, Once PRN for severe nausea, infuse over 15 minutes, first dose 03/13/21 15:35:00 [employer] Diphenhydra 2021-0 No 12.5 mg = M emoria mine 1-06 0.25 mL, l 21:35: Injection, [facility] 00 IV Push, q15min PRN for allergy symptoms, order duration: 2 doses, first dose 03/13/21 15:35:00 [employer], stop date Limited # of times Lactated 2021-0 No IV, start Raúl holland Ringers -06 date l Injection 21:20: 03/13/21 Herm justo 00 15:20:00 [employer], stop date 03/13/21 15:20:00 [employer] fentaNYL 2-0 No 100 mcg = Raúl holland 1-06 2 mL, l 19:07: Injection, [facility] 00 IV, Once, first dose 03/13/21 13:07:00 [employer], stop date 03/13/21 13:07:00 [employer] lidocaine 2-0 No 100 mg = 5 Me moria 1-06 mL, l 19:07: Injection, Jeffery 00 IV, Once, first dose 03/13/21 13:07:00 [employer], stop date 03/13/21 13:07:00 [employer] ketorolac 2-0 No 30 mg = 1 Mem oria 1-06 mL, l 19:07: Injection, [facility] 00 IV, Once, first dose 03/13/21 13:07:00 [employer], stop date 03/13/21 13:07:00 [employer] propofol 2-0 No 1,000 mg = Mem oria 1-06 100 mL, l 19:07: Emulsion, Jeffery 00 IV, Once, first dose 03/13/21 13:07:00 [employer], stop date 03/13/21 13:07:00 [employer] ceFAZolin 2-0 No 2 gm, [facility] 1-06 Soln-IV, l 19:06: IV, Once, first dose 03/13/21 13:06:00 [employer], stop date 03/13/21 13:06:00 [employer] Lidocaine 2021-0 No 5 mg = 0.5 Me moria pf IV start 1-06 mL, l 0.5mL 18:00: Injection, Delroy n [TOPS] 00 Subcutaneo , Once, first dose 03/13/21 12:00:00 [employer], stop date 03/13/21 12:00:00 [employer], For IV Start Cefazolin 2-0 No 2 gm, [facility] 1-06 Soln-IV, l 18:00: IV Jeffery 00 Piggyback, Once, infuse over 30 minutes, first dose 03/13/21 12:00:00 [employer], stop date 03/13/21 12:00:00 [employer], Give within 1 hour of incision, Prophylaxi s Ofirmev 2-0 No Notes: Max Raúl holland 1-06 4gm l 18:00: acetaminop Jeffery 00 hen in 24 hours LR 1,000 mL No 1,000 mL, M emoria 1-06 IV, 100 l 17:27: mL/hr, start date 03/13/21 11:27:00 [employer], For Adults unless there is a known renal disease then use Normal Saline, 1.62, m2 zolpidem 2021- No TAKE ONE [facility] (AMBIEN) 10 03-13 (1) TABLET [facility] mg tablet 00:00: 00:00 (10 MG Medic al 00 :00 TOTAL) BY Center MOUTH EVERY NIGHT NEEDED FOR INSOMNIA. zolpidem 2021- No TAKE ONE [facility] (AMBIEN) 10 03-13 (1) TABLET L [facility] mg tablet 00:00: 00:00 (10 MG Medic al 00 :00 TOTAL) BY Center MOUTH EVERY NIGHT NEEDED FOR INSOMNIA. topiramate 2021- No Persistent TAKE ONE [facility] (TOPAMAX) 03-13- headaches (1) [facility] 100 MG 00:00: 00:00 TABLET(S) Medic al tablet 00 :00 BY MOUTH Center EVERY MORNING AND 2 TABLETS IN THE EVENING. topiramate 2021- No Persistent TAKE ONE [facility] (TOPAMAX) 03-13- headaches (1) [facility] 100 MG 00:00: 00:00 TABLET(S) Medic al tablet 00 :00 BY MOUTH Center EVERY MORNING AND 2 TABLETS IN THE EVENING. Prilosec Yes 40 mg, [facility] 1-05 Oral, l 16:49: Daily Acetaminoph 2020-03 No Notes: Max [facility]oria en 325 MG / 2-20 4gm l Hydrocodone 16:42: acetaminop Bitartrate hen in 24 5 MG Oral hours Tablet [[place] 5/325] Ondansetron 2020-03 No 4 mg = 2 Me moria 2-20 mL, l 15:28: Injection, IV Push, q15min PRN for nausea/vom iting, order duration: 2 doses, first dose 02/24/21 9:28:00 [employer], stop date Limited # of times promethazin 2020-03 No 12.5 mg, Me moria e IVPB 2-20 Injection, l 15:28: IV [facility] 00 Piggyback, Once PRN for severe nausea, infuse over 15 minutes, first dose 02/24/21 9:28:00 [employer] Diphenhydra 2020-03 No 12.5 mg = M emoria mine 2-20 0.25 mL, l 15:28: Injection, [facility]ery 00 IV Push, q15min PRN for allergy symptoms, order duration: 2 doses, first dose 02/24/21 9:28:00 [employer], stop date Limited # of times Acetaminoph 2020-03 No Notes: Max [facility] en 325 MG / 2-20 4gm l Hydrocodone 15:28: acetaminop Jeffery Bitartrate 00 hen in 24 5 MG Oral hours Tablet [[place] 5/325] Saline Lock 2020-03 No 20 mL, Raúl holland Flush 2-20 Soln, IV l 15:28: Push, As [facility] 00 Indicated PRN for flush, first dose 02/24/21 9:28:00 [employer] Labetalol 2020-03 No 60, SBP Memor ia 2-20 Hold l 15:28: Parameter: [facility] 00 less than 100 mmHg, HR Hold Parameter: less than 5... Hydralazine 2020-03 No 100, if Mem oria 2-20 HR<60 l 15:28: and/or [facility]ery 00 labetalol 25mg reached., SBP Hold Parameter: less than 100 mmHg Demerol HCl 2020-03 No 12.5 mg = M emoria 2-20 0.5 mL, l 15:28: Injection, [facility] 00 IV Push, q5min PRN for shivers, order duration: 2 doses, first dose 02/24/21 9:28:00 [employer], stop date Limited # of times Fentanyl 2020-03 No 25 mcg = Memor ia 2-20 0.5 mL, l 15:28: Injection, [facility] 00 IV Push, q5min PRN for pain mild-moder ate (1-6), order duration: 2 doses, first dose 02/24/21 9:28:00 [employer], stop date Limited # of times, if pain still unrelieved after second dose, notify Anesthesio logist for further orders Lactated 2020-03 No IV, start Raúl holland Ringers 2-20 date l Injection 15:26: 02/24/21 Herm justo 00 9:26:00 [employer], stop date 02/24/21 9:26:00 [employer] propofol 2020-03 No 120 mg = Memor ia 2-20 12 mL, l 15:23: Emulsion, Jeffery 00 IV, Once, first dose 02/24/21 9:23:00 [employer], stop date 02/24/21 9:23:00 [employer] Cefazolin 2020-03 No 2 gm, [facility] 2-20 Soln-IV, l 15:00: IV Jeffery 00 Piggyback, Once, infuse over 30 minutes, first dose 02/24/21 9:00:00 [employer], stop date 02/24/21 9:00:00 [employer], Prophylaxi s Midazolam 2020-03 No 2 mg = 2 Raúl holland 2-20 mL, l 15:00: Injection, [facility] 00 IV Push, Once, first dose 02/24/21 9:00:00 [employer], stop date 02/24/21 9:00:00 [employer] ketamine 2020-03 No 20 mg = 2 Raúl holland 2-20 mL, l 14:45: Injection, [facility] 00 IV, Once, first dose 02/24/21 8:45:00 [employer], stop date 02/24/21 8:45:00 [employer] ketamine 2020-03 No 30 mg = 3 Raúl holland 2-20 mL, l 14:39: Injection, [facility] 00 IV, Once, first dose 02/24/21 8:39:00 [employer], stop date 02/24/21 8:39:00 [employer] ondansetron 2020-03 No 4 mg = 2 Me moria 2-20 mL, l 14:37: Injection, Jeffery 00 IV, Once, first dose 02/24/21 8:37:00 [employer], stop date 02/24/21 8:37:00 [employer] famotidine 2020-03 No 20 mg, Memor ia 2-20 Injection, l 14:37: IV, Once, Jeffery 00 first dose 02/24/21 8:37:00 [employer], stop date 02/24/21 8:37:00 [employer] fentaNYL 2020-03 No 100 mcg = Raúl holland 2-20 2 mL, l 14:35: Injection, [facility] 00 IV, Once, first dose 02/24/21 8:35:00 [employer], stop date 02/24/21 8:35:00 [employer] lidocaine 2020-03 No 30 mg = 3 Mem oria 2-20 mL, l 14:35: Injection, IV, Once, first dose 02/24/21 8:35:00 [employer], stop date 02/24/21 8:35:00 [employer] ceFAZolin 2020-03 No 2 gm, [facility] 2-20 Soln-IV, l 14:28: IV, Once, first dose 02/24/21 8:28:00 [employer], stop date 02/24/21 8:28:00 [employer] Lidocaine 2020-03 No 5 mg = 0.5 Me moria pf IV start 2-20 mL, l 0.5mL 14:00: Injection, Delroy n [TOPS] 00 Subcutaneo us, Once, first dose 02/24/21 8:00:00 [employer], stop date 02/24/21 8:00:00 [employer], For IV Start LR 1,000 mL 2020-03 No 1,000 mL, M emoria 2-20 IV, 100 l 13:48: mL/hr, start date 02/24/21 7:48:00 [employer], For Adults unless there is a known renal disease then use Normal Saline, 1.7, m2 silver 2020-03- No 1{appli QD Apply [address] [facility] sulfADIAZIN 2-17 12-22 cation} applicatio [facility] 00:[facility]: 23:59 n Medical (Silvadene) 00 :[address] 1 % cream daily for 5 days. silver 2020-03- No 1{appli QD Apply [address] [facility] sulfADIAZIN 2-17 12-22 cation} applicatio [facility] 00:00: 23:59 n Medical (Silvadene) 00 :[address] 1 % cream daily for 5 days. SUMAtriptan 2020-03- No Persistent TAKE ONE [facility] (IMITREX) 2-06 05-17 headaches (1) TABLET [facility] 100 MG 00:00: 00:00 (100 MG Medical tablet 00 :00 TOTAL) BY Center MOUTH 2 (TWO) TIMES DAILY NEEDED. SUMAtriptan 2020-03- No Persistent TAKE ONE [facility] (IMITREX) 2- 05-17 headaches (1) TABLET [facility] 100 MG 00:00: 00:00 (100 MG Medical tablet 00 :00 TOTAL) BY Center MOUTH 2 (TWO) TIMES DAILY NEEDED. rOPINIRole 2020-03- No TAKE ONE [facility] (REQUIP) 2 2-23 (1) [facility] tablet 00:00: 00:00 TABLET(S) Me dical 00 :00 BY MOUTH Center THREE TIMES A DAY. rOPINIRole 2020-03- No TAKE ONE [facility] (REQUIP) 2 04-13- (1) [facility] tablet 00:00: 00:00 TABLET(S) Me dical 00 :00 BY MOUTH Center THREE TIMES A DAY. baclofen 2020-03- No TAKE ONE [facility] (LIORESAL) 04-13 03-13 (1) TABLET Shannen kes 20 MG 00:00: 00:00 (20 MG Medical tablet 00 :00 TOTAL) BY Center MOUTH 3 (THREE) TIMES DAILY. baclofen 2020-03- No TAKE ONE [facility] (LIORESAL) 04-13-13 (1) TABLET Shannen kes 20 MG 00:00: 00:00 (20 MG Medical tablet 00 :00 TOTAL) BY Center MOUTH 3 (THREE) TIMES DAILY. SUMAtriptan 2020-03- No Persistent TAKE ONE [facility] (IMITREX) 03-30 12-06 headaches (1) TABLET [facility] 100 MG 00:00: 00:00 (100 MG Medical tablet 00 :00 TOTAL) BY Center MOUTH 2 (TWO) TIMES DAILY NEEDED. SUMAtriptan 2020-03- No Persistent TAKE ONE [facility] (IMITREX) 03-30 12-06 headaches (1) TABLET [facility] 100 MG 00:00: 00:00 (100 MG Medical tablet 00 :00 TOTAL) BY Center MOUTH 2 (TWO) TIMES DAILY NEEDED. diazePAM 2020-03- No 10mg Take [address] [facility] (VALIUM) 10 1-11 02-07 tablet (10 L [facility] MG tablet 00:00: 00:00 mg total) Me dical 00 :00 by mouth Center every 8 (eight) hours as needed for Anxiety. Max Daily Amount: 30 mg diazePAM 2020-03- No 10mg Take [address] [facility] (VALIUM) 10 -11 02-07 tablet (10 L [facility] MG tablet 00:00: 00:00 mg total) Me dical 00 :00 by mouth Center every 8 (eight) hours as needed for Anxiety. Max Daily Amount: 30 mg nitrofurant 2020-03- No Neck pain 100mg Q.5D Take [address] [facility] oin, 0-25 01-25 capsule [facility] macro[facility]rysta 00:00: 00:00 (100 mg Me dical l-monohydra 00 :00 total) by [facility] te, mouth 2 (MACROBID) (two) 100 MG times capsule daily. nitrofurant 2020-03- No Neck pain 100mg Q.5D Take [address] [facility] oin, 0-25 01-25 capsule [facility] 00:00: 00:00 (100 mg Me dical l-monohydra 00 :00 total) by [facility] te, mouth 2 (MACROBID) (two) 100 MG times capsule daily. sumatriptan 2020-03- No INJECT 0.[address] [facility] (IMITREX) 6 0-22 03-13 ML(S) [facility] mg/0.5 mL 00:00: 00:00 SUBCUTANEO M edical Soln 00 :00 USLY DAILY Center injection NEEDED FOR 30 DAYS. sumatriptan 2020-03- No INJECT 0.[address] [facility] (IMITREX) 6 0-22 03-13 ML(S) [facility] mg/0.5 mL 00:00: 00:00 SUBCUTANEO M edical Soln 00 :00 USLY DAILY Center injection NEEDED FOR 30 DAYS. celecoxib 2020-03- No TAKE ONE [facility] (CeleBREX) 0-22 02-24 (1) [facility] 200 MG 00:00: 00:00 CAPSULE(S) Medi [facility] capsule 00 :00 BY MOUTH Center DAILY FOR 90 DAYS. celecoxib 2020-03- No TAKE ONE [facility] (CeleBREX) 0-22 02-24 (1) [facility] 200 MG 00:00: 00:00 CAPSULE(S) Medi [facility] capsule 00 :00 BY MOUTH Center DAILY FOR 90 DAYS. diazePAM 2020-03 No 10mg Take [address] [facility] (VALIUM) 10 0-22 11-11 tablet (10 [facility] MG tablet 00:00: 00:00 mg total) Me dical 00 :00 by mouth Center every 8 (eight) hours as needed for Anxiety. Max Daily Amount: 30 mg diazePAM 2020-03 No 10mg Take [address] [facility] (VALIUM) 10 0-22 11-11 tablet (10 [facility] MG tablet 00:00: 00:00 mg total) Me dical 00 :00 by mouth Center every 8 (eight) hours as needed for Anxiety. Max Daily Amount: 30 mg zolpidem 2020-03- No TAKE ONE [facility] (AMBIEN) 10 0-10 -06 (1) TABLET [facility] mg tablet 00:00: 00:00 (10 MG Medic al 00 :00 TOTAL) BY Center MOUTH EVERY NIGHT NEEDED FOR INSOMNIA. topiramate 2020-03- No Persistent TAKE ONE [facility] (TOPAMAX) 0-10 -06 headaches (1) [facility] 100 MG 00:00: 00:00 TABLET(S) Medic al tablet 00 :00 BY MOUTH Center EVERY MORNING AND 2 TABLETS IN THE EVENING. zolpidem 2020-03- No TAKE ONE [facility] (AMBIEN) 10 0-10 -06 (1) TABLET [facility] mg tablet 00:00: 00:00 (10 MG Medic al 00 :00 TOTAL) BY Center MOUTH EVERY NIGHT NEEDED FOR INSOMNIA. topiramate 2020-03- No Persistent TAKE ONE [facility] (TOPAMAX) 0-12 06- headaches (1) [facility] 100 MG 00:00: 00:00 TABLET(S) Medic al tablet 00 :00 BY MOUTH Center EVERY MORNING AND 2 TABLETS IN THE EVENING. lidocaine 2020-03- No [facility] (LIDODERM) 0-04-03 (1) PATCH Anayeli es 5 % patch 00:00: 00:00 ONTO THE Med ical 00 :00 SKIN ONCE Center DAILY, REMOVE & DISCARD PATCH WITHIN 12 HOURS OR DIRECTED BY . lidocaine 2020-03- No [facility]ACE [facility] (LIDODERM) 0-04-03 (1) PATCH Anayeli es 5 % patch 00:00: 00:00 ONTO THE Med ical 00 :00 SKIN ONCE Center DAILY, REMOVE & DISCARD PATCH WITHIN 12 HOURS OR DIRECTED BY MD. baclofen 2020- No TAKE ONE [facility] (LIORESAL) 11-11 (1) TABLET Shannen kes 20 MG 00:00: 00:00 (20 MG Medical tablet 00 :00 TOTAL) BY Center MOUTH 3 (THREE) TIMES DAILY. rOPINIRole 2020- No [facility]KE ONE [facility] (REQUIP[facility] 2 11-11 (1) [facility] tablet 00:00: 00:00 TABLET(S) Me dical 00 :00 BY MOUTH Center THREE TIMES A DAY. baclofen 2020- No TAKE ONE [facility] (LIORESAL) 11-11 (1) TABLET Shannen kes 20 MG 00:00: 00:00 (20 MG Medical tablet 00 :00 TOTAL) BY Center MOUTH 3 (THREE) TIMES DAILY. rOPINIRole 2020- No TAKE ONE [facility] (REQUIP) 2 11-11 (1) [facility] tablet 00:00: 00:00 TABLET(S) Me dical 00 :00 BY MOUTH Center THREE TIMES A DAY. topiramate 2020- No Persistent TAKE ONE [facility] (TOPAMAX) 11-11 10-10 headaches (1) Luke s 100 MG 00:00: 00:00 TABLET(S) Medic al tablet 00 :00 BY MOUTH Center EVERY MORNING AND 2 TABLETS IN THE EVENING. topiramate 2020- No Persistent TAKE ONE [facility] (TOPAMAX) 11-11 10-10 headaches (1) Luke s 100 MG 00:00: 00:00 TABLET(S) Medic al tablet 00 :00 BY MOUTH Center EVERY MORNING AND 2 TABLETS IN THE EVENING. lidocaine 2020- No PLACE ONE [facility] (LIDODERM) 11-01 (1) PATCH Anayeli es 5 % patch 00:00: 00:00 ONTO THE Med ical 00 :00 SKIN ONCE Center DAILY, REMOVE & DISCARD PATCH WITHIN 12 HOURS OR DIRECTED BY . lidocaine 2020- No PLACE ONE [facility] (LIDODERM) 11-01 10 (1) PATCH Anayeli es 5 % patch 00:00: 00:00 ONTO THE Med ical 00 :00 SKIN ONCE Center DAILY, REMOVE & DISCARD PATCH WITHIN 12 HOURS OR DIRECTED BY . SUMAtriptan 2020- No Persistent TAKE ONE [facility] (IMITREX) 10-14 headaches (1) TABLET [facility] 100 MG 00:00: 00:00 (100 MG Medical tablet 00 :00 TOTAL) BY Center MOUTH 2 (TWO) TIMES DAILY NEEDED. SUMAtriptan 2020- No Persistent TAKE ONE [facility] (IMITREX) 10-14 headaches (1) TABLET [facility] 100 MG 00:00: 00:00 (100 MG Medical tablet 00 :00 TOTAL) BY Center MOUTH 2 (TWO) TIMES DAILY NEEDED. nitrofurant 2020- No Neck pain 100mg Q.5D Take [address] [facility] oin, 10-14- capsule [facility] macrocrysta 00:00: 00:00 (100 mg Me dical l-monohydra 00 :00 total) by [facility] te, mouth 2 (MACROBID) (two) 100 MG times capsule daily. nitrofurant 2020- No Neck pain 100mg Q.5D Take [address] [facility] oin, 10-14 capsule [facility] macrocrysta 00:00: 00:00 (100 mg Me dical l-monohydra 00 :00 total) by [place] [facility] te, mouth 2 (MACROBID) (two) 100 MG times capsule daily. diazePAM 2020- No 10mg Take [address] [facility] (VALIUM) 10 10-14-22 tablet (10 [facility] MG tablet 00:00: 00:00 mg total) Me dical 00 :00 by mouth Center every 8 (eight) hours as needed for Anxiety. Max Daily Amount: 30 mg diazePAM 2020- No 10mg Take [address] [facility] (VALIUM) 10 10-14-22 tablet (10 [facility] MG tablet 00:00: 00:00 mg total) Me dical 00 :00 by mouth Center every 8 (eight) hours as needed for Anxiety. Max Daily Amount: 30 mg zolpidem 2020- No TAKE ONE [facility] (AMBIEN) 10 7-13 10-10 (1) TABLET [facility] mg tablet 00:00: 00:00 (10 MG Medic al 00 :00 TOTAL) BY Center MOUTH EVERY NIGHT NEEDED FOR INSOMNIA. zolpidem 2020- No TAKE ONE [facility] (AMBIEN) 10 7-13 10-10 (1) TABLET L [facility]kes mg tablet 00:00: 00:00 (10 MG Medic al 00 :00 TOTAL) BY Center MOUTH EVERY NIGHT NEEDED FOR INSOMNIA. diclofenac Yes 4g Q.25D Apply [address] 1 % Gel 6-04 topically [facility] 00:00: 4 (four) [facility] 00 times Center daily. diclofenac Yes 4g Q.25D Apply [address] 1 % Gel 6-04 topically [facility] 00:00: 4 (four) Medical 00 times Center daily. hydrocortis 2021- No Q.5D Apply [facility] one 2.5 % 5-28 05-28 topically [facility] cream 00:00: 23:59 2 (two) Medical 00 :00 times Center daily. hydrocortis 2021- No Q.5D Apply [facility] one 2.5 % 5-28 05-28 topically [facility] cream 00:00: 23:59 2 (two) Medical 00 :00 times Center daily. venlafaxine 2021- No TAKE ONE [facility] (EFFEXOR-XR -05-08 (1) [facility] ) 75 MG 24 00:00: 00:00 CAPSULE(S) Medical hr capsule 00 :00 BY MOUTH Cente r DAILY. venlafaxine 2021- No TAKE ONE [facility] (EFFEXOR-XR -05-08 (1) [facility] ) 75 MG 24 00:00: 00:00 CAPSULE(S) Medical hr capsule 00 :00 BY MOUTH Cente r DAILY. celecoxib 2020- No TAKE ONE [facility] (CeleBREX) -12-27 () [facility] 200 MG 00:00: 00:00 CAPSULE(S) Medi chanell capsule 00 :00 BY MOUTH Center DAILY FOR 90 DAYS. celecoxib 2020- No TAKE ONE [facility] (CeleBREX) -12-27 (1) [facility] 200 MG 00:00: 00:00 CAPSULE(S) Medi chanell capsule 00 :00 BY MOUTH Center DAILY FOR 90 DAYS. sucralfate 2019-0 2021- No TAKE ONE [facility] (CARAFATE) 10-22 (1) [facility] 1 gram 00:00: 00:00 TABLET(S) Medic al tablet 00 :00 BY MOUTH Center FOUR TIMES A DAY. sucralfate 2019-2021- No TAKE ONE [facility] (CARAFATE) 10-22 (1) [facility] 1 gram 00:00: 00:00 TABLET(S) Medic al tablet 00 :00 BY MOUTH Center FOUR TIMES A DAY. sumatriptan 2019-2020- No INJECT 0.[address] [facility] (IMITREX) 6 8- 10-22 ML(S) [facility] mg/0.5 mL 00:00: 00:00 SUBCUTANEO M edical Soln 00 :00 USLY DAILY Center injection NEEDED FOR 30 DAYS. sumatriptan 2019-2020- No INJECT 0.[address] [facility] (IMITREX) 6 10-11 10-22 ML(S) [facility] mg/0.5 mL 00:00: 00:00 SUBCUTANEO M edical Soln 00 :00 USLY DAILY Center injection NEEDED FOR 30 DAYS. miscellaneo 2020-0 Yes [id number] Neck brace [facility] supply misc 00:00: Hospit a 00 l miscellaneo 2020-0 Yes [id number] Neck brace [facility] supply misc 00:00: Hospit a 00 l rOPINIRole 2020-0 Yes 2mg [id number] Take 2 mg [facility] (REQUIP) 2 7-08 [id number] mouth 3 [address] MG tablet 11:50: 3D (three) Hospi ta 05 times a l day. topiramate 2020-0 Yes 100mg Take 100 [facility] (TOPAMAX) 7-[address] 100 MG 11:50: mouth. 1 Hospita tablet 05 po qam and l 2 po qpm SUMAtriptan 2020-0 Yes .5mL 0.5 mL. [facility] succinate 7-08 st (IMITREX) 6 11:50: Hospit a mg/0.5 mL 05 l solution celecoxib 2019-0 Yes 200mg QD Take 200 [facility] (CeleBREX) 7-[address] 200 MG 11:50: mouth Hospita capsule 05 daily. l nitrofurant 2020-0 Yes 100mg Take 100 M [facility]i oin 7-[address] (MACRODANTI 11:50: mouth as Ho spita N) 100 MG 05 needed. l capsule baclofen 2020-0 Yes 20mg Q.[id number] Take 20 mg [facility] (LIORESAL) 7-08 [id number] mouth [address] 20 MG 11:50: 3D (three) Hospita tablet 05 times a l day. esomeprazol 2020-0 Yes 20mg Q.5D Take 20 mg [facility] (NexIUM) 7-[address] 20 MG 11:50: (two) Hospita capsule 05 times a l day. diazePAM 2020-0 Yes 5mg Q12H Take 5 mg Meth kenyon (VALIUM) 5 7-[address] MG tablet 11:50: every 12 Hosp alicia 05 (twelve) l hours as needed for anxiety. rOPINIRole 2020-0 Yes 2mg Q.[id number] Take 2 mg [facility] (REQUIP) 2 7-08 [id number] mouth [address] MG tablet 11:50: 3D (three) Hospi ta 05 times a l day. topiramate 2020-0 Yes 100mg Take 100 [facility] (TOPAMAX) 7-[address] 100 MG 11:50: mouth. 1 Hospita tablet 05 po qam and l 2 po qpm SUMAtriptan 2020-0 Yes .5mL 0.5 mL. [facility] succinate 7-08 st (IMITREX) 6 11:50: Hospit a mg/0.5 mL 05 l solution celecoxib 2020-0 Yes 200mg QD Take 200 [facility] (CeleBREX) 7-[address] 200 MG 11:50: mouth Hospita capsule 05 daily. l nitrofurant 2020-0 Yes 100mg Take 100 M ethodi oin 7-[address] (MACRODANTI 11:50: mouth as Ho spita N) 100 MG 05 needed. l capsule baclofen 2020-0 Yes 20mg Q.[id number] Take 20 mg [facility] (LIORESAL) 7-08 [id number] mouth [address] 20 MG 11:50: 3D (three) Hospita tablet 05 times a l day. esomeprazol Yes 20mg Q.5D Take 20 mg [facility] (NexIUM) 7-[address] 20 MG 11:50: (two) Hospita capsule 05 times a l day. diazePAM Yes 5mg Q12H Take 5 mg [facility]yon (VALIUM) 5 7-[address] MG tablet 11:50: every 12 [facility]osp alicia 05 (twelve) l hours as needed for anxiety. AJOVY 225 Yes [facility]JECT [facility] mg/1.5 mL 4-11 CONTENTS [facility] 00:00: OF ONE (1) Medical 00 PRE-FILLED Center SYRINGE SUBCUTANEO USLY EVERY 28 DAYS. AJOVY 225 Yes [facility]JECT [facility] mg/1.5 mL 4-11 CONTENTS [facility] 00:00: OF ONE (1) Medical 00 PRE-FILLED Center SYRINGE SUBCUTANEO USLY EVERY 28 DAYS. DULoxetine 2021- No TAKE [address] [facility] (CYMBALTA) -06 11-23 CAPSULE [facility] 60 MG 00:00: 00:00 (60 MG Medical capsule 00 :00 TOTAL) BY Center MOUTH DAILY. DULoxetine 2021- No TAKE [address] [facility] (CYMBALTA) 4-06 11-23 CAPSULE [facility] 60 MG 00:00: 00:00 (60 MG Medical capsule 00 :00 TOTAL) BY Center MOUTH DAILY. eszopiclone 2021- No TAKE ONE [facility] 3 mg tablet 06-01 TABLET BY Shannen cosme 00:00: 00:00 MOUTH AT Medical 00 :00 BEDTIME Center NEEDED. MAX 1 TABLET PER DAY. eszopiclone 2021- No TAKE ONE [facility] 3 mg tablet 06-01- TABLET BY Shannen cosme 00:00: 00:00 MOUTH AT Medical 00 :00 BEDTIME Center NEEDED. MAX 1 TABLET PER DAY. fremanezuma Yes [id number] 225mg Q28D Inject 225 [facility] b-vfrm 3-[address] (AJOVY) 225 00:00: the skin Ho spita mg/1.5 mL 00 every 28 l syringe days. 225mg SC qMonthly fremanezuma Yes [id number] 225mg Q28D Inject 225 [facility] b-vfrm 3-[address] (AJOVY) 225 00:00: the skin Ho spita mg/1.5 mL 00 every 28 l syringe days. 225mg SC qMonthly furosemide No 20mg QD Take [address] [facility] (LASIX) 20 09-05 tablet (20 Shannen kes MG tablet 00:00: 00:00 mg total) Me dical 00 :00 by mouth Center daily for 30 days. furosemide No 20mg QD Take [address] [facility] (LASIX) 09-05 tablet (20 Shannen kes MG tablet 00:00: 00:00 mg total) Me dical 00 :00 by mouth Center daily for 30 days. buprenorphi 2021- No 1{patch [address] [facility] ne 15 07-06 } every 7 [facility] mcg/hour 00:00: 00:00 days . Medica l PTWK 00 :00 H[place]el buprenorphi No 1{patch [address] [facility] ne 15 07-06 } every 7 [facility] mcg/hour 00:00: 00:00 days . Medica l PTWK 00 :00 [place] Aspirin 2016-03 No 1 Packets, Raúl holland 1000 MG / 1-14 Oral, As l Caffeine 65 20:47: Indicated H ermann MG Oral 00 Powder [BC Arthritis] Ibuprofen 2016-03 No 800 mg = 1 Me moria 800 MG Oral 1-14 tabs, l Tablet 20:46: Oral, As Jeffery 00 Indicated topiramate 2016-03 Yes Oral, BID, M emoria 100 MG Oral 14 1 tab in l Tablet 20:45: AM and 2 Jeffery [Topamax] 00 tabs at HS Sumatriptan 2016-03 Yes 100 mg = 1 [facility] 100 MG Oral 1-14 tabs, l Tablet 20:11: Oral, As Jeffery 00 Indicated NITROFURANT 2016-03 Yes 100 mg = 1 [facility] OIN, 1-14 caps, l MACROCRYSTA 20:10: Oral, Christy nn LS 100 MG 00 Daily Oral Capsule Esomeprazol 2016-03 No 20 mg = 1 M emoria e 20 MG 1-14 caps, l Enteric 20:09: Oral, BID Christy nn Coated 00 Capsule [Nexium] tiZANidine 2016-03 No 4 mg = 1 Mem oria 4 mg oral 1-14 caps, l capsule 20:09: Oral, TID Christy nn 00 DULoxetine 2016-03 No 30 mg = 1 Me moria 30 mg oral 1-14 caps, l delayed 20:08: Oral, [facility] release 00 Daily capsule Ondansetron 2016-03 Yes 4 mg, Mem[facility] ia 1-14 Oral, As l 20:08: Indicated [facility] 00 diazePAM 5 2016-03 Yes 1 tab, Mem[facility] ia mg oral 1-14 Oral, TID l tablet 20:08: [facility] 00 Cephalexin Yes 500 mg = 1 M emoria 500 MG Oral 7-30 cap, PO, l Capsule 22:16: QID, X 7 Delroy n [Keflex] 00 day, # 28 cap, 0 Refill(s) Acetaminoph Yes 1 - 2 tab, Memoria en 300 MG / 7-30 PO, Q6H, l Codeine 22:00: PRN Pain, Christy nn Phosphate 00 X 3 day, # 30 MG Oral 15 tab, 0 Tablet Refill(s) [Tylenol with Codeine #3] Ondansetron No 4 mg, Memor ia 7-30 Route: l 19:20: IVP, ONCE, Dosing Weight 65.909, kg, Priority: STAT, Start date: 10/04/16 14:20:00 CDT, Stop date: 10/04/16 14:20:00 CDT Morphine No 2 mg, [facility] 7-30 Route: l 19:20: IVP, ONCE, Dosing Weight 65.909, kg, Priority: STAT, Start date: 10/04/16 14:20:00 CDT, Stop date: 10/04/16 14:20:00 CDT Sodium 2017-0 No 1,000 mL, Memori a Chloride 7-30 Infuse l 0.9% 19:20: Over: 1 Jeffery (Bolus) IV 00 hr, Route: IV, ONCE, Priority: STAT, Dosing Weight 65.909 kg, Start date: 10/04/16 14:20:00 CDT, Duration: 1 doses or times, Stop date: 10/04/16 14:20:00 CDT Saline No Notes: [facility] Flush 0.9% 10-04 Same as: l 19:20: BD [facility] 00 Posiflush Sterile SUMAtriptan Yes Take 1 tab [facility] (IMITREX) 2-[address] 100 MG 00:00: Max of 2 Hospita tablet 00 in 24 l hours SUMAtriptan Yes Take 1 tab [facility] (IMITREX) 2-[address] 100 MG 00:00: Max of 2 Hospita tablet 00 in 24 l hours Acetaminoph Yes 1-2 tab, Me moria en 325 MG / 03 PO, Q4-6H, l Hydrocodone 12:04: PRN Pain, H ermann Bitartrate 00 X 5 day, # 5 MG Oral 12 tab, 0 Tablet Refill(s) [[place] 5/325] { Yes See Mem[facility] (Methylpred 09-07 Instructio l nisolone 4 12:04: ns, PO, Herm justo MG Oral 00 Take by Tablet mouth as [Medrol]) } directed Pack on label., [Medrol X 6 day, # Dosepak] 1 Pack, 0 Refill(s) Ketorolac No 4 days Memor ia 09-07 l 12:01: MEDICATION WASTE Product Size: 30 mg Product Wasted: ___ mg Acetaminoph Yes 1 tab, PO, Memoria en 300 MG / 621 Q6H, PRN l Codeine 04:40: Pain, X 7 Christy nn Phosphate 00 day, # 28 30 MG Oral tab, 0 Tablet Refill(s) [Tylenol with Codeine #3] tramadol Yes 50 mg = 1 Raúl holland hydrochlori 6-21 tab, PO, l de 50 MG 04:23: Q6H, PRN Christy nn Oral Tablet 00 Pain, X 10 day, # 40 tab, 0 Refill(s) naproxen Yes 500 mg = 1 Mem oria 500 mg oral 6-21 tab, PO, l tablet 04:23: BID, # 60 Delroy n 00 tab, 0 Refill(s) Naproxen No Notes: [facility] -21 (Same as: l 03:49: Naprosyn) [facility] 00 Take with food. Tramadol No Notes: Not Mem oria 6-21 to exceed l 03:49: 400mg/day. Jeffery 00 (Same As: Ultram) Acetaminoph 2013-03 No Notes: Do M emoria en 325 MG / 18 not exceed l Hydrocodone 18:42: 4gm/day of [facility] Bitartrate 00 acetaminop 10 MG Oral hen. (Same Tablet as: [place] [[place] 325/10) ] Phenobarbit 2013-03 No 60 mg, Raúl holland al 18 Route: PO, l 16:00: Drug form: [facility] 00 TAB, ONCALL, Dosing Weight 68.182, kg, Start date: 01/23/14 10:00:00, Duration: 30 day, Stop date: 02/22/14 9:59:00 Dexamethaso 2013-03 No 4 mg, 1 Mem oria ne -18 tab, l 16:00: Route: PO, Drug form: TAB, ONCALL, Dosing Weight 68.182, kg, Start date: 01/23/14 10:00:00, Duration: 1 doses or times Sodium 2013-03 No 1,000 mL, Memori a Chloride 18 Rate: 125 l 0.154 15:36: ml/hr, MEQ/ML 00 Infuse Injectable over: 8 Solution hr, Route: IV, Dosing Weight 68.182 kg, Total Volume: 1,000, Start date: 01/23/14 9:36:00, Duration: 30 day, Stop date: 02/22/14 9:35:00 Saline 2013-03 No Notes: [facility] Flush 0.9% 18 Same as: l 15:36: BD Posiflush Sterile Immunizations Ordered Immunization Filled Immunization Date Status Commen ts Source Name Name Covid-19 Vaccine 2021-01-[address] [facility] MRNA (PF) 12yr+ 00:00:00 Medical C enter ([employer])(IM M601) Covid-19 Vaccine 2021-01-[address] [facility] MRNA (PF) 12yr+ 00:00:00 Medical C enter (Pfizer/BioNTech)(IM M601) Covid-19 Vaccine 2020-06-[address] [facility] MRNA (PF) 12yr+ 00:00:00 Medical C enter (Pfizer/BioNTech)(IM M601) Covid-19 Vaccine 2020-06-[address] [facility] MRNA (PF) 12yr+ 00:00:00 Medical C enter (Pfizer/BioNTech)(IM M601) Covid-19 Vaccine 2020-05-[address] [facility] MRNA (PF) 12yr+ 00:00:00 Medical C enter (Pfizer/BioNTech)(IM M601) Covid-19 Vaccine 2020-05-[address] [facility] MRNA (PF) 12yr+ 00:00:00 Medical C enter (Pfizer/BioNTech)(IM M601) Influenza Four-QIV 2018-12-[address] [facility] PF 3YR+ ([id number]) 00:00:00 Medical Center Influenza Four-QIV 2018-12-[address] [facility] PF 3YR+ ([id number]) 00:00:00 Medical Center Vital Signs Vital Name Observation Time Observation Value Comments Source HEIGHT 2020-07-30 13:27:00 167.6 cm WEIGHT 2020-07-30 13:27:00 67.223 kg HEIGHT 2020-02-19 15:53:00 167.6 cm WEIGHT 2020-02-19 15:53:00 67.132 kg HEIGHT 2019-12-04 00:00:00 167.6 cm WEIGHT 2019-12-04 00:00:00 67.586 kg HEIGHT 2019-09-26 00:00:00 167.6 cm WEIGHT 2019-09-26 00:00:00 60.782 kg Systolic (mm Hg) 2021-11-18 18:32:00 Raúl rial Jeffery Diastolic (mm Hg) 2021-11-18 18:32:00 Mem orial [facility] Heart Rate 2021-11-18 18:32:00 [facility] Respitory Rate 2021-11-18 18:32:00 Memori al [facility] Height 2021-11-18 18:32:00 157[facility]48 [facility] 2021-11-18 18:32:00 [facility] BMI Calculated 2021-11-18 18:32:00 Memori [facility] Systolic blood 2021-08-28 11:05:00 121 mm[Hg] [facility] Diastolic blood 2021-08-28 11:05:00 83 mm[Hg] [facility] Heart rate 2021-08-28 11:05:00 84 /min [facility] Body temperature 2021-08-28 11:05:00 37.22 [facility] Body height 2021-08-28 11:05:00 167.6 cm [facility] Body weight 2021-08-28 11:05:00 55.339 kg [facility] BMI 2021-08-28 11:05:00 19.69 kg/m2 [facility] Oxygen saturation in 2021-08-28 11:05:00 98 /min [facility] Arterial blood by Medical Ce nter Pulse oximetry Heart Rate 2021-03-31 17:00:00 [facility] Respitory Rate 2021-03-31 17:00:00 Memori al Jeffery Systolic (mm Hg) 2021-03-31 17:00:00 Raúl rial Jeffery Diastolic (mm Hg) 2021-03-31 17:00:00 Mem orial [facility] Heart Rate 2021-03-31 16:45:00 [facility] Respitory Rate 2021-03-31 16:45:00 Memori al [facility] Systolic (mm Hg) 2021-03-31 16:45:00 Raúl rial Jeffery Diastolic (mm Hg) 2021-03-31 16:45:00 Mem orial [facility] Heart Rate 2021-03-31 16:30:00 [facility] Respitory Rate 2021-03-31 16:30:00 Memori al [facility]ery Systolic (mm Hg) 2021-03-31 16:30:00 Raúl rial [facility] Diastolic (mm Hg) 2021-03-31 16:30:00 Mem orial [facility] Temperature Oral (F) 2021-03-31 15:56:00 36.6 [facility] Temperature Oral (F) 2021-03-31 14:37:00 36.9 [facility] Height 2021-03-31 14:37:00 165 cm [facility] Weight 2021-03-31 14:37:00 [facility] Height 2021-03-28 18:44:00 165 cm [facility] Weight 2021-03-28 18:44:00 [facility] Heart Rate 2021-03-13 23:00:00 [facility] Respitory Rate 2021-03-13 23:00:00 Memori [facility] Systolic (mm Hg) 2021-03-13 23:00:00 Raúl rial Jeffery Diastolic (mm Hg) 2021-03-13 23:00:00 Mem orial [facility] Heart Rate 2021-03-13 22:45:00 [facility] Respitory Rate 2021-03-13 22:45:00 Memori [facility] Systolic (mm Hg) 2021-03-13 22:45:00 Raúl rial Jeffery Diastolic (mm Hg) 2021-03-13 22:45:00 Mem orial [facility] Heart Rate 2021-03-13 22:30:00 [facility] Respitory Rate 2021-03-13 22:30:00 Memori al [facility] Systolic (mm Hg) 2021-03-13 22:30:00 Raúl rial Jeffery Diastolic (mm Hg) 2021-03-13 22:30:00 Mem orial [facility] Temperature Oral (F) 2021-03-13 21:30:00 36.3 [facility] Temperature Oral (F) 2021-03-13 17:06:00 36.7 [facility] Height 2021-03-13 17:06:00 165 cm [facility] Weight 2021-03-13 17:06:00 [facility] Height 2021-03-12 16:49:00 165 cm [facility] Weight 2021-03-12 16:49:00 [facility] Heart Rate 2021-02-24 16:45:00 [facility] Respitory Rate 2021-02-24 16:45:00 Memori al [facility] Systolic (mm Hg) 2021-02-24 16:45:00 Raúl rial [facility] Diastolic (mm Hg) 2021-02-24 16:45:00 Mem orial [facility] Heart Rate 2021-02-24 16:30:00 [facility] Respitory Rate 2021-02-24 16:30:00 Memori al [facility] Systolic (mm Hg) 2021-02-24 16:30:00 Raúl rial [facility] Diastolic (mm Hg) 2021-02-24 16:30:00 Mem orial [facility] Heart Rate 2021-02-24 16:15:00 [facility] Respitory Rate 2021-02-24 16:15:00 Memori al [facility] Systolic (mm Hg) 2021-02-24 16:15:00 Raúl rial Jeffery Diastolic (mm Hg) 2021-02-24 16:15:00 Mem orial [facility] Temperature Oral (F) 2021-02-24 15:30:00 36.5 [facility] Temperature Oral (F) 2021-02-24 13:48:00 36.7 [facility] Height 2021-02-24 13:48:00 165 cm [facility] Weight 2021-02-24 13:48:00 [facility] Height 2021-02-19 17:54:00 165 cm [facility] Weight 2021-02-19 17:54:00 [facility] Systolic (mm Hg) 2016-10-04 22:20:00 Raúl rial [facility] Diastolic (mm Hg) 2016-10-04 22:20:00 Mem orial [facility]ery Systolic (mm Hg) 2016-10-04 21:30:00 Raúl rial Jeffery Diastolic (mm Hg) 2016-10-04 21:30:00 Mem orial [facility] Systolic (mm Hg) 2016-10-04 21:00:00 Raúl rial [facility] Diastolic (mm Hg) 2016-10-04 21:00:00 Mem orial [facility] Height 2016-10-04 18:51:00 167.64 cm [facility] BMI Calculated 2016-10-04 18:51:00 Memori al [facility] Respitory Rate 2016-10-04 18:51:00 Memori al [facility] Heart Rate 2016-10-04 18:51:00 [facility] Weight 2016-10-04 18:51:00 [facility] Systolic (mm Hg) 2015-09-08 12:54:00 Raúl rial Jeffery Diastolic (mm Hg) 2015-09-08 12:54:00 Mem orial Jeffery Respitory Rate 2015-09-08 12:54:00 Memori al [facility] Heart Rate 2015-09-08 12:54:00 [facility] Weight 2015-09-08 11:20:00 [facility] Respitory Rate 2015-09-08 11:20:00 Mem[facility] Heart Rate 2015-09-08 11:20:00 [facility] Systolic (mm Hg) 2015-09-08 11:20:00 Raúl rial [facility] Diastolic (mm Hg) 2015-09-08 11:20:00 Mem orial Jeffery BMI Calculated 2015-09-08 11:20:00 Memori al [facility] Height 2015-09-08 11:20:00 167.64 cm [facility] Heart Rate 2015-08-27 05:04:00 [facility] Respitory Rate 2015-08-27 05:04:00 Memori al [facility] Systolic (mm Hg) 2015-08-27 05:04:00 Raúl rial [facility] Diastolic (mm Hg) 2015-08-27 05:04:00 Mem orial [facility] BMI Calculated 2015-08-27 03:15:00 Memori al [facility] Height 2015-08-27 03:15:00 167.64 cm [facility] Weight 2015-08-27 03:15:00 [facility] Temperature Oral (F) 2015-08-27 03:15:00 98.4 F [facility] Respitory Rate 2015-08-27 03:15:00 Memori al [facility] Heart Rate 2015-08-27 03:15:00 [facility] Systolic (mm Hg) 2015-08-27 03:15:00 Raúl rial [facility] Diastolic (mm Hg) 2015-08-27 03:15:00 Mem orial [facility] Height 2014-01-23 15:36:00 167.64 cm [facility] BMI Calculated 2014-01-23 15:36:00 Mem[facility] Weight 2014-01-23 15:36:00 [facility] BMI Calculated 2013-12-28 22:11:00 [facility] Weight 2013-12-28 22:11:00 [facility] Height 2013-12-28 22:11:00 167.64 cm [facility] Procedures Procedure Date / Time Performing Clinician Source Performed ECG 12-LEAD 2021-08-28 11:56:00 [facility] URINE CULTURE 2021-08-28 11:48:00 [facility] CBC W/PLT COUNT & AUTO 2021-08-28 11:48:00 Avis [facility] COMPREHENSIVE METABOLIC 2021-08-28 11:48:00 Avis [facility] HEMOGLOBIN A1C 2021-08-28 11:48:00 [facility] LIPID PANEL 2021-08-28 11:48:00 [facility] HEPATITIS C ANTIBODY 2021-08-28 11:48:00 [facility] VISUAL ACUITY SCREENING 2021-08-28 11:27:00 [facility] INJECTION EPIDURAL OF 2021-03-31 15:31:00 Sarah Tang BLOOD OR CLOT PATCH 13889 (N/A)<sup>1</sup> FLUOROSCOPIC GUIDANCE AND 2021-03-13 19:16:00 Me fredi Gil LOCALIZATION OF NEEDLE OR CATHETER TIP; SPINE INJ. 18688 (N/A)<sup>2</sup> ELECTRONIC ANALYSIS OF 2021-03-13 19:16:00 Gerald Gil IMPLANTED NEUROSTIM. PULSE GEN. COMPLEX SPINAL/PERIPH. NERVE W/PROGRAM 61610 (N/A)<sup>1</sup> INSERTION OF SPINAL 2021-03-13 19:16:00 [facility] NEUROSTIMULATOR 61802 (N/A)<sup>3</sup> PERCUTANEOUS IMPLANTATION 2021-03-13 19:16:00 Me fredi Gil OF NEUROSTIMULATOR ELECTRODE ARRAY EPIDURAL 27288 (N/A)<sup>4</sup> PERCUTANEOUS IMPLANTATION 2021-02-24 14:37:00 Me morishakira Gil OF NEUROSTIMULATOR ELECTRODE ARRAY EPIDURAL 21775 (N/A)<sup>3</sup> Bladder operation [facility] Hysterectomy [facility] Operation [facility] Tonsillectomy [facility] adenoidectomy Colonoscopy [facility] Gastroscopy [facility] Implanted device [facility] Delroy n maintenance report<sup>4</sup> Spinal cord stimulation [facility] Plan of Care Planned Activity Planned Date Details Comments Source Future Scheduled 2026-08-[address] [facility] 00:00:00 (procedure) [code = [facility] [id number]] Future Scheduled 2026-08-[address] [facility] 00:00:00 (procedure) [code = [facility] [id number]] Future Scheduled 2024-05-[address] [facility] (procedure) [code = [id number]] Future Scheduled 2024-05-[address] [facility]:00 [facility] (procedure) [code = [id number]] Future Scheduled 2024-05-[address] [facility] 00:[facility]:00 [facility] (procedure) [code = [id number]] Future Scheduled 2024-05-[address] [facility] 00:[facility]:00 [facility] (procedure) [code = [id number]] Future Scheduled 2022-08-[address] [facility] 00:00:00 WELLNESS (YEAR 3 +) [facility] Center [code = MEDICARE SUBSEQUENT WELLNESS (YEAR 3 +)] Future Scheduled 2022-08-[address] [facility] Test 00:00:00 WELLNESS (YEAR 3 +) [facility] Center [code = MEDICARE SUBSEQUENT WELLNESS (YEAR 3 +)] Future Scheduled 2021-11-21 HEPATITIS B VACCINES Met [facility] Test 05:21:41 (1 of 3 - 3-dose series) [code = HEPATITIS B VACCINES (1 of 3 - 3-dose series)] Future Scheduled 2021-11-21 Hepatitis C screening [facility] Test 05:21:41 (procedure) [code = 842105114] Future Scheduled 2021-11-21 Screening for [facility] Test 05:21:41 malignant neoplasm of cervix (procedure) [code = 098450038] Future Scheduled 2021-11-21 BREAST CANCER [facility] Test 05:21:41 SCREENING [code = BREAST CANCER SCREENING] Future Scheduled 2021-11-21 COLONOSCOPY SCREENING Me [facility] Test 05:21:41 [code = COLONOSCOPY SCREENING] Future Scheduled 2021-11-21 SHINGLES VACCINES (1 Met [facility] Test 05:21:41 of 2) [code = SHINGLES VACCINES (1 of 2)] Future Scheduled 2021-11-21 COVID-19 VACCINE (3 - Me [facility] Test 05:21:41 Booster for Pfizer series) [code = COVID-19 VACCINE (3 - Booster for Pfizer series)] Future Scheduled 2021-11-21 65+ [facility]:21[facility]41 VACCINE (1 - PCV) [code = 65+ PNEUMOCOCCAL VACCINE (1 - PCV)] Future Scheduled 2021-11-21 INFLUENZA VACCINE Method [facility] Test 05:21:41 [code = INFLUENZA VACCINE] Future Scheduled 2021-11-21 HEPATITIS B VACCINES Met [facility] Test 05:21:41 (1 of 3 - 3-dose series) [code = HEPATITIS B VACCINES (1 of 3 - 3-dose series)] Future Scheduled 2021-11-21 Hepatitis C screening [facility] Test 05:21:41 (procedure) [code = 492372399] Future Scheduled 2021-11-21 Screening for [facility] Test 05:21:41 malignant neoplasm of cervix (procedure) [code = 815495252] Future Scheduled 2021-11-21 BREAST CANCER [facility] Test 05:21:41 SCREENING [code = BREAST CANCER SCREENING] Future Scheduled 2021-11-21 COLONOSCOPY SCREENING [facility] Test 05:21:41 [code = COLONOSCOPY SCREENING] Future Scheduled 2021-11-21 SHINGLES VACCINES (1 Met [facility] Test 05:21:41 of 2) [code = SHINGLES VACCINES (1 of 2)] Future Scheduled 2021-11-21 COVID-19 VACCINE (3 - Me [facility] Test 05:21:41 Booster for Pfizer series) [code = COVID-19 VACCINE (3 - Booster for Pfizer series)] Future Scheduled 2021-11-21 65+ [facility] 05:21:41 VACCINE (1 - PCV) [code = 65+ PNEUMOCOCCAL VACCINE (1 - PCV)] Future Scheduled 2021-11-21 INFLUENZA VACCINE [facility] Test 05:21:41 [code = INFLUENZA VACCINE] Future Scheduled 2021-11-06 INFLUENZA VACCINE (#1) [facility] [code = INFLUENZA Medical Ce nter VACCINE (#1)] Future Scheduled 2021-11-06 INFLUENZA VACCINE (#1) [facility] 00:00:00 [code = INFLUENZA Medical Ce nter VACCINE (#1)] Future Scheduled 2021-05-21 COVID-19 VACCINE (4 - [facility] Booster for Pfizer Medical C enter series) [code = COVID-19 VACCINE (4 - Booster for Pfizer series)] Future Scheduled 2021-05-21 COVID-19 VACCINE (4 - [facility] 00:[facility]:00 Booster for Pfizer Medical C enter series) [code = COVID-19 VACCINE (4 - Booster for Pfizer series)] Future Scheduled 2021 PNEUMOCOCCAL 65+ YRS [facility] Test 00:00:00 (1 - PCV) [code = Medical Ce nter PNEUMOCOCCAL 65+ YRS (1 - PCV)] Future Scheduled 2021 PNEUMOCOCCAL 65+ YRS [facility] Test 00:00:00 (1 - PCV) [code = Medical Ce nter PNEUMOCOCCAL 65+ YRS (1 - PCV)] Future Scheduled 2006 SHINGLES VACCINES ([address] [facility] Test 00:00:00 of 2) [code = SHINGLES Medic al Center VACCINES (1 of 2)] Future Scheduled 2006 SHINGLES VACCINES ([address] [facility] Test 00:00:00 of 2) [code = SHINGLES Medic al Center VACCINES (1 of 2)] Future Scheduled 1975 DTAP/TDAP/TD VACCINES [facility] 00:00:00 (1 - Tdap) [code = Medical C enter DTAP/TDAP/TD VACCINES (1 - Tdap)] Future Scheduled 1975 DTAP/TDAP/TD VACCINES [facility] 00:00:00 (1 - Tdap) [code = Medical C enter DTAP/TDAP/TD VACCINES (1 - Tdap)] Future Scheduled [address] [facility]00 malignant neoplasm of Medica l Center breast (procedure) [code = 060185520] Future Scheduled [address] [facility] 00:00:00 (combo) [code = CT Medical C enter Colonography (combo)] Future Scheduled 1956 DXA SCAN [code = DXA [facility] Test 00:00:00 SCAN] [facility] Future Scheduled [address] [facility] 00:00:00 malignant neoplasm of Medica l Center colon (procedure) [code = 897888285] Future Scheduled [address] [facility] 00:00:00 malignant neoplasm of Medica l Center colon (procedure) [code = 107661620] Future Scheduled 1956 Sigmoidoscopy [code = [facility] Sigmoidoscopy] Medical Juan Luis r Future Scheduled [address] [facility] 00:00:00 malignant neoplasm of Medica l Center breast (procedure) [code = 191382058] Future Scheduled [address] [facility] 00:00:00 (combo) [code = CT Medical C enter Colonography (combo)] Future Scheduled 1956 DXA SCAN [code = DXA [facility] 00:00:00 SCAN] [facility] Future Scheduled [address] [facility] 00:00:00 malignant neoplasm of Medica l Center colon (procedure) [code = 899728988] Future Scheduled [address] [facility] 00:00:00 malignant neoplasm of Medica l Center colon (procedure) [code = 881803896] Future Scheduled 1956 Sigmoidoscopy [code = [facility] Sigmoidoscopy] Medical Juan Luis r Encounters Start End Encounter Admission Attending Care Care Encounter Source Date/Time Date/Time Type Type Clinicians Facility Department ID 2021-11-25 Outpatient MARIA A UP [id number] 09:45:11 RAMSESELVA orantes [facility] 2021-12-22 2021-12-22 Outpatient KEEGAN ALLISON [id number] [facility] 10:00:00 10:00:00 02 anisa Gil 2021-12-17 2021-12-17 Outpatient MHIE IE [id number] [facility] 15:45:00 15:45:00 01 l Jeffery 2021-11-27 2021-11-27 Telephone Avis [facility] [id number] [facility] 2021-11-18 2021-11-19 Outpatient nullFlavo MNA [id number] Memoria 18:15:00 04:59:59 r Neurology 00 anisa Chen [facility] 2021-11-18 2021-11-18 [id number] 13:15:00 23:59:59 Jose 00 Sam 2021-11-18 2021-11-18 Outpatient MHIE SHILOHIE [id number] [facility] 13:15:00 13:15:00 00 l [facility] 2021-11-12 2021-11-12 Outpatient FOG_Arthur_ AOSM AOSM [id number] Katerin 00:00:00 00:00:00 Dalila [id number] [facility] 2021-11-05 2021-11-05 Refill Avis [facility] [id number] [facility] 00[facility]00 [facility] 2021-11-05 2021-11-05 Orders Chata [facility] [id number] 00:00:00 00:00:00 Only [facility] 2021-11-05 2021-11-05 Refill Avis [facility] [id number] [facility] 00[facility]00 [facility] 2021-11-05 2021-11-05 Orders Chata [facility] [id number] 00:00:00 00:00:00 Only [facility] 2021-10-31 2021-10-31 Refill Avis [facility] [id number] [facility]00 [facility] 2021-10-31 2021-10-31 Refill Jessiemarcie, [facility] [id number] [facility] 00[facility]00 [facility] 2021-10-14 2021-10-14 Refill Jessiejeanieian, [facility] [id number] [facility] 00[facility]00 [facility] 2021-10-14 2021-10-14 Refill Asaelian, [facility] [id number] [facility] 00[facility]00 [facility] 2021-10-13 2021-10-13 Telephone Chata, [facility] [id number] 00:00[facility]00 00:00:00 [facility] 2021-10-13 2021-10-13 Telephone Chata, [facility] [id number] 00:[facility]00 00:00:00 [facility] 2021-10-12 2021-10-12 Refill Jessiemarcie, [facility] [id number] [facility] 00[facility]:00 [facility] 2021-10-12 2021-10-12 Refill Jessiemarcie, [facility] [id number] [facility] 00:[facility]00 [facility] 2021-10-10 2021-10-10 Telephone Avis, [facility] [id number] [facility] 00[facility]00 [facility] 2021-10-10 2021-10-10 Telephone Avis, [facility] [id number] [facility] 00[facility]00 [facility] 2021-10-09 2021-10-09 Orders Avis, [facility] [id number] 00:[facility]00 00:00:[address] [facility] 2021-10-09 2021-10-09 Orders Avis, [facility] [id number] 00:00[facility]00 00:00:[address] [facility] 2021-10-08 2021-10-08 Telephone Avis [facility] [id number] [facility] 00:[facility]:00 [facility] 2021-10-08 2021-10-08 Telephone Avis [facility] [id number] [facility] 00:[facility]:00 [facility] 2021-10-06 2021-10-06 Refill Avis, [facility] [id number] [facility] 00[facility]00 [facility] 2021-10-06 2021-10-06 Orders Chata [facility] [id number] 00:00:00 00:00:00 Only [facility] 2021-10-06 2021-10-06 Refill Avis, [facility] [id number] [facility] 00:[facility]:00 [facility] 2021-10-06 2021-10-06 Orders Chata [facility] [id number] 00:00:00 00:00:00 Only [facility] 2021-10-02 2021-10-02 Telephone Avis [facility] [id number] [facility] 00[facility]00 [facility] 2021-10-02 2021-10-02 Telephone Avis [facility] [id number] [facility] 00[facility]00 [facility] 2021-09-23 2021-09-23 Telephone Avis [facility] [id number] [facility] 00[facility]00 [facility] 2021-09-23 2021-09-23 Telephone Avis [facility] [id number] [facility] 00:[facility]:00 [facility] 2021-08-28 2021-08-28 Office Avis [facility] [id number] 11:20:00 11:56:[address] [facility] 2021-08-28 2021-08-28 Office Avis [facility] [id number] 11:20:00 11:56:[address] [facility] 2021-08-13 2021-08-13 Telephone Oscar, 1.2.840.1 [id number] Methodi 00:00:00 00:00:00 Sami 03140.1.1 705 Raymon 3.430.2.7 Hospit a .3.518125 l .8 2021-08-13 2021-08-13 Telephone Oscar, 1.2.840.1 [id number] Methodi 00:00:00 00:00:00 Sami 36547.1.1 705 Raymon 3.430.2.7 Hospit a .3.522372 l .8 2021-08-06 2021-08-06 Refill Avis [facility] [id number] [facility] 00[facility]00 [facility] 2021-08-06 2021-08-06 Refzita Albarran [facility] [id number] [facility] 00:[facility]00 [facility] 2021-07-19 2021-07-19 Refill Avis [facility] [id number] [facility]00 00:00:00 [facility] 2021-07-19 2021-07-19 Refzita Albarran [facility] [id number] [facility]:00[facility]00 00:00:00 [facility] 2021-07-18 2021-07-18 Refzita Albarran [facility] [id number] [facility] 00[facility]00 [facility] 2021-07-18 2021-07-18 Refill Avis, [facility] [id number] [facility] 00:[facility]:00 [facility] 2021-07-08 2021-07-08 Refill Avis, [facility] [id number] [facility] 00:[facility]:00 [facility] 2021-07-08 2021-07-08 Refill Avis, [facility] [id number] [facility]00 00:00:00 [facility] 2021-07-07 2021-07-07 Refill Avis, [facility] [id number] [facility]:00[facility]00 00:00:00 [facility] 2021-07-07 2021-07-07 Refill Avis, [facility] [id number] 00:00[facility]00 00:00:00 [facility] 2021-06-18 2021-06-18 Outpatient Senan_S VFP VFP [id number] [facility] 06:54:00 06:54:00 [id number] Family Practic e 2021-05-24 2021-05-24 Refill Avis, [facility] [id number] [facility]:00[facility]00 00:00:00 [facility] 2021-05-24 2021-05-24 Refill Avis [facility] [id number] 00:00[facility]00 00:00:00 [facility] 2021-05-20 2021-05-20 Telephone Avis [facility] [id number] 00:[facility]00 00:00:00 [facility] 2021-05-20 2021-05-20 Telephone Avis [facility] [id number] 00:[facility]00 00:00:00 [facility] 2021-05-19 2021-05-19 Refill Avis [facility] [id number] 00:00[facility]00 00:00:00 [facility] 2021-05-19 2021-05-19 Refill Jenbenjaizian, [facility] [id number] [facility]00 00:00:00 [facility] 2021-05-16 2021-05-16 Refill Jenbenjaizian, [facility] [id number] [facility]:00[facility]00 00:00:00 [facility] 2021-05-16 2021-05-16 Refill Jenjeanieian, [facility] [id number] 00:00[facility]00 00:00:00 [facility] 2021-05-15 2021-05-15 Telephone Avis, [facility] [id number] 00:00[facility]00 00:00:00 [facility] 2021-05-15 2021-05-15 Telephone Avis, [facility] [id number] 00:00[facility]00 00:00:00 [facility] 2021-05-08 2021-05-08 Video - Jenevizian, [facility] [id number] 11:35:00 12:32:17 [facility]med[facility] 2021-05-08 2021-05-08 Video - Jenevizian, [facility] [id number] 11:35:00 12:32:17 [facility] 2021-05-01 2021-05-01 Refill Jenjeanieian, [facility] [id number] 00:00[facility]00 00:00:00 [facility] 2021-05-01 2021-05-01 Refill Asaelian, [facility] [id number] 00:00:00 00:00:00 [facility] 2021-04-28 2021-04-28 Travel 1.2.840.1 1.2.907.747 [id number] Methodi 00:00:00 00:00:[address] 3.430.2.7 0.2.7.3.698 Ho spita .3.387936 084.8 l .8 2021-04-28 2021-04-28 Travel 1.2.840.1 1.2.824.678 5330 [id number] Methodi 00:00:00 00:00:[address] 3.430.2.7 0.2.7.3.698 Ho spita .3.514213 084.8 l .8 2021-04-12 2021-04-12 Refill Avis [facility] [id number] [facility]:00[facility]00 00:00:00 [facility] 2021-04-12 2021-04-12 Refill Avis [facility] [id number] [facility]00 00:00:00 [facility] [id number] [facility] 00[facility]00 [facility] 2021 [facility] [id number] [facility]:00[facility]00 00:00:00 [facility] 2021-04-03 2021-04-03 Outpatient Senan_S VFP VFP [id number] [facility] 01:55:00 01:55:00 [id number] Family Practic e 2021-04-02 2021-04-02 Outpatient Senan_S VFP VFP [id number] [facility] 05:45:00 05:45:00 [id number] Family Practic e 2021-04-02 2021-04-02 Refzita Albarran [facility] [id number] [facility]00 00:00:00 [facility] 2021-04-02 2021-04-02 [facility] [id number] [facility]00 00:[facility]:00 [facility] 2021-04-01 2021-04-01 Radha Albarran [facility] [id number] 00:00[facility]00 00:00:00 [facility] 2021-04-01 2021-04-01 Radha Albarran [facility] [id number] 00:00[facility]00 00:00:00 [facility] 2021-03-31 2021-03-31 Outpatient nullFlavo TOP [id number] Memoria 13:52:50 17:20:00 r Scooter lange [facility] 2021-03-31 2021-03-31 Outpatient Sandoval, [id number] 07:52:50 11:20:00 Nae Sauceda 2 2021-03-31 2021-03-31 Outpatient nullFlavo [facility] [id number] Memoria 07:52:50 11:20:00 bhavesh lange [facility] 2021-03-26 2021-03-26 Travel 1.2.840.1 1.2.034.276 [id number] [id number] Methodi 00:00:00 00:00:[address] 3.430.2.7 0.2.7.3.698 Ho spita .3.672840 084.8 l .8 2021-03-26 2021-03-26 Travel 1.2.840.1 1.2.711.878 9471 [id number] Methodi 00:00:00 00:00:[address] 3.430.2.7 0.2.7.3.698 Ho spita .3.387085 084.8 l .8 2021-03-25 2021-03-25 Transcribe Abi, 1.2.840.1 [id number] Methodi 00:00:00 00:00:00 Orders Rick 30373.1.[address] 3.430.2.7 Hospit a .3.813277 l .8 2021-03-25 2021-03-25 Transcribe Abi, 1.2.840.1 [id number] Methodi 00:00:00 00:00:00 Orders Rick 16237.1.[address] 3.430.2.7 Hospit a .3.280423 l .8 2021-03-13 2021-03-13 Outpatient nullFlavo TOPS [id number] Memoria 16:31:30 23:28:00 r Scooter [facility] 2021-03-13 2021-03-13 Outpatient Sandoval, [id number] 10:31:30 17:28:00 Nae Sohail 2 2021-03-13 2021-03-13 Outpatient nullFlavo [facility] [id number] Memoria 10:31:30 17:28:00 bhavesh Gil 2021-03-13 2021-03-13 [facility] [id number] [facility]00 00[facility]00 [facility] 2021-03-13 2021-03-13 [facility] [id number] [facility]:00[facility]00 00:00:00 [facility] 2021-03-06 2021-03-06 Travel 1.2.840.1 1.2.068.611 6930 [id number] Methodi 00:00:00 00:00:[address] 3.430.2.7 0.2.7.3.698 Ho spita .3.231323 084.8 l .8 2021-03-06 2021-03-06 Travel 1.2.840.1 1.2.585.659 4569 [id number] Methodi 00:00:00 00:00:[address] 3.430.2.7 0.2.7.3.698 Ho spita .3.757485 084.8 l .8 2021-03-05 2021-03-05 Transcribe Abi, 1.2.840.1 [id number] Methodi 00:00:00 00:00:00 Orders Rick 21894.1.[address] 3.430.2.7 Hospit a .3.944599 l .8 2021-03-05 2021-03-05 Transcribe Abi, 1.2.840.1 [id number] Methodi 00:00:00 00:00:00 Orders Rick 17360.1.[address] 3.430.2.7 Hospit a .3.331294 l .8 2021-02-24 2021-02-24 Outpatient nullFlavo TOP [id number] Memoria 15:26:12 17:32:00 r Scooter [facility] 2021-02-24 2021-02-24 Outpatient Sandoval, [id number] 09:26:12 11:32:00 Nae Sauceda 2 2021-02-24 2021-02-24 Outpatient nullFlavo [facility] [id number] Memoria 09:26:12 11:32:00 bhavesh Gil 2021-02-21 2021-02-21 Orders Avis [facility] [id number] 00:00[facility]00 00:00:[address] [facility] 2021-02-21 2021-02-21 Telephone Avis [facility] [id number] [facility]00 00:00:00 [facility] 2021-02-21 2021-02-21 Orders Avis [facility] [id number] 00:00:00 00:00:[address] [facility] 2021-02-21 2021-02-21 Telephone Avis [facility] [id number] 00:00[facility]00 00:00:00 [facility] 2021-02-19 2021-02-19 Tabitha Albarran [facility] [id number] 00:00:00 00:00:[address] [facility] 2021-02-19 2021-02-19 [facility] [id number] [facility]00 00:00:00 [facility] 2021-02-19 2021-02-19 [facility] [id number] 00:00:00 00:00:[address] [facility] 2021-02-19 2021-02-19 [facility] [id number] [facility]:00[facility]00 00:00:00 [facility] 2021-02-07 2021-02-07 Refill Avis, [facility] [id number] 00:00[facility]00 00:00:00 [facility] 2021-02-07 2021-02-07 [facility] [id number] [facility]:00[facility]00 00:00:00 [facility] 2021-02-04 2021-02-04 [facility] [id number] 00:00[facility]00 00:00:00 [facility] 2021-02-04 2021-02-04 [facility] [id number] 00:00[facility]00 00:00:00 [facility] 2021-02-03 2021-02-03 Travel 1.2.840.1 1.2.157.091 8035 [id number] Methodi 00:00:00 00:00:[address] 3.430.2.7 0.2.7.3.698 Ho spita .3.665575 084.8 l .8 2021-02-03 2021-02-03 Travel 1.2.840.1 1.2.983.114 3877 [id number] Methodi 00:00:00 00:00:[address] 3.430.2.7 0.2.7.3.698 Ho spita .3.234257 084.8 l .8 2021-01-29 2021-01-29 Travel 1.2.840.1 1.2.255.982 5144 [id number] Methodi 00:00:00 00:00:[address] 3.430.2.7 0.2.7.3.698 Ho spita .3.802337 084.8 l .8 2021-01-29 2021-01-29 Travel 1.2.840.1 1.2.282.628 9160 [id number] Methodi 00:00:00 00:00:[address] 3.430.2.7 0.2.7.3.698 Ho spita .3.520353 084.8 l .8 2021-01-24 2021-01-24 Orders Avis, [facility] [id number] 00:00:00 00:00:[address] [facility] 2021-01-24 2021-01-24 Refill Avis, [facility] [id number] 00:00[facility]00 00:00:00 [facility] 2021-01-24 2021-01-24 Orders Avis [facility] [id number] 00:00:00 00:00:[address] [facility] 2021-01-24 2021-01-24 Refill Avis, [facility] [id number] 00:00[facility]00 00:00:00 [facility] 2021-01-15 2021-01-15 Refill Avis, [facility] [id number] 00:00[facility]00 00:00:00 [facility] 2021-01-15 2021-01-15 Refill Avis [facility] [id number] 00:00[facility]00 00:00:00 [facility] 2020-12-30 2020-12-30 Refill Jenevizian, [facility] [id number] 00:00[facility]00 00:00:00 [facility] 2020-12-30 2020-12-30 Refill Jenevizian, [facility] [id number] 00:00[facility]00 00:00:00 [facility] 2020-12-24 2020-12-24 Refill Jenevizian, [facility] [id number] [facility] 00[facility]00 [facility] 2020-12-24 2020-12-24 Refill Jenevizian, [facility] [id number] [facility] 00[facility]00 [facility] 2020-12-23 2020-12-23 Refill Jenevizian, [facility] [id number] [facility] 00[facility]:00 [facility] 2020-12-23 2020-12-23 Refill Jenevizian, [facility] [id number] [facility] 00[facility]:00 [facility] 2020-12-16 2020-12-16 Refill Jenevizian, [facility] [id number] [facility] 00[facility]:00 [facility] 2020-12-16 2020-12-16 Refill Jenevizian, [facility] [id number] [facility] 00[facility]:00 [facility] 2020-12-13 2020-12-13 Refill Jenevizian, [facility] [id number] [facility]00 00:[facility]:00 [facility] 2020-12-13 2020-12-13 Refill Jenevizian, [facility] [id number] [facility]00 00[facility]:00 [facility] 2020-12-10 2020-12-10 Outpatient JENEVIZIAN, [facility] [id number] [facility] 00:[facility]00 00:00:00 [facility] 2020-12-08 2020-12-08 Refill Avis [facility] [id number] [facility]00 00:[facility]:00 [facility] 2020-12-08 2020-12-08 Refill Avis, [facility] [id number] [facility] 00:[facility]00 00:00:00 [facility] 2020-12-05 2020-12-05 Telephone Oscar, 1.2.840.1 [id number] [facility] 00:00:00 00:00:00 Sami [id number] 675 [facility] [id number] Hospit a .[id number] l .8 2020-12-05 2020-12-05 Telephone Oscar, 1.2.840.1 [id number] [facility] 00:00:00 00:00:00 Sami 83966.1.1 675 [facility] 3.430.2.7 Hospit a .[id number] l .8 2020-11-27 2020-11-27 Telephone Avis [facility] [id number] [facility] 00[facility]:00 [facility] 2020-09-04 2020-09-04 [facility] [id number] [facility] 00:[facility] 00:00:00 , [facility] 2020-09-04 2020-09-04 Outpatient [facility] [id number] [facility] 00:[facility]00 00:00:00 [facility] 2020-08-27 2020-08-27 Outpatient [facility] [id number] [facility] 00:[facility]00 00:00:00 [facility] 2020-08-21 2020-08-21 [facility] [id number] [facility] 00:[facility]00 00:00:00 , [facility] 2020-08-20 2020-08-20 Outpatient [facility] [id number] [place] 00:00:00 00:00:[address] 2020-07-30 2020-07-30 Outpatient [facility] [id number] 00:00:00 00:00:00 [facility] 2020-06-26 2020-06-26 Outpatient [facility] [id number] [facility] 00:00:00 00:00:00 2020-06-19 2020-06-19 Outpatient [facility] [id number] [facility] 00:00:00 00:00:00 2020-06-10 2020-06-10 Outpatient EL SYSTEM, [facility] [id number] SL 00:00:00 00:00:00 PROVIDER 2020-05-29 2020-05-29 Outpatient SLE [facility] [id number] [facility] 00:00:00 00:00:00 2020-05-29 2020-05-29 Outpatient [facility] [id number] AILYN Solomon 00:00:00 00:00:00 [facility] 2020-05-15 2020-05-15 Outpatient SYSTEM, [facility] [id number] SL 00:00:00 00:00:00 PROVIDER 2020-05-15 2020-05-15 Outpatient SYSTEM, [facility] [id number] SL 00:00:00 00:00:00 PROVIDER 2020-05-15 2020-05-15 Outpatient TRISTON ALBARRAN, [facility] [id number] SL 00:00:00 00:00:00 [facility] 2020-05-14 2020-05-14 Outpatient [facility] [id number] 00:00[facility]00 00:00:00 [facility] 2020-05-14 2020-05-14 Outpatient SYSTEM, [facility] [id number] SL 00:00:00 00:00:00 PROVIDER 2020-05-14 2020-05-14 Outpatient SYSTEM, [facility] [id number] SL 00:00:00 00:00:00 PROVIDER 2020-05-14 2020-05-14 Outpatient EL JENBENJAIZIAN, [facility] [id number] [facility] 00:00:00 00:00:00 [facility] 2020-05-07 2020-05-07 Outpatient JENEVIZIAN, [facility] [id number] 00:00[facility]00 00:00:00 [facility] 2020-04-30 2020-04-30 Outpatient JENEVIZIAN, [facility] [id number] [address] 00:00[facility]00 00:00:00 [facility] 2020-04-22 2020-04-22 Outpatient JENEVIZIAN, [facility] [id number] 00:00[facility]00 00:00:00 [facility] 2020-02-21 2020-02-21 Outpatient JENEVIZIAN, [facility] [id number] [address] 00:00[facility]00 00:00:00 [facility] 2020-02-19 2020-02-19 Outpatient JENEVIZIAN, [facility] [id number] [facility] 00:00[facility]00 00:00:00 [facility] 2019-12-04 2019-12-04 Outpatient JENEVIZIAN, [facility] [id number] [address] 00:00:00 00:00:00 [facility] 2019-09-26 2019-09-26 Outpatient JENEVIZIAN, [facility] [id number] [facility] 00:00[facility]00 00:00:00 [facility] 2019-09-21 2019-09-21 Outpatient TRISTON DALEY, [facility] [id number] [facility] 00:00:00 00:00:00 GLADIS 2019-09-13 2019-09-13 Outpatient MOORE, [facility] [id number] [place] 00:00:00 00:00:00 SAMI solomon 2019-09-06 2019-09-06 Outpatient JENBENJAIZIAN, [facility] [id number] [address] 00:00:00 00:00:00 [facility] 2019-07-06 2019-07-06 Outpatient JENEVIZIAN, [facility] [id number] 14:58:37 15:49:28 [facility] 2019-07-06 2019-07-06 Outpatient [facility] [id number] 14:58:37 14:58:37 [id number] [facility] 2019-06-25 2019-06-25 Outpatient [facility] [id number] eClinic 14:24:00 14:24:00 Primary Primary alWork s Care Care 2019-06-21 2019-06-21 Outpatient [facility] [id number] 00:00:00 00:00:00 [id number] [facility] 2019-06-14 2019-06-14 Emergency [facility] [id number] [facility] 11:41:00 11:41:00 [id number] 2019-05-10 2019-05-10 Outpatient [facility] [id number] 00:00:00 00:00:00 [facility] 2019-05-10 2019-05-10 Outpatient [facility] [id number] 00:00:00 00:00:00 [id number] [facility] 2019-02-23 2019-02-25 Phone nullFlavo MNA [id number] Memoria 16:45:14 05:59:59 Message r Neuroscienc 01 l e [facility] 2019-02-23 2019-02-24 Outpatient MHMISCHER MHMISCHER [id number] 10:45:14 23:59:59 2019-02-01 2019-02-01 Outpatient [facility] [id number] 00:00:00 00:00:00 [facility] 2018-10-21 2018-10-21 Outpatient [facility] [id number] 00:00:00 00:00:00 [facility] 2018-05-09 2018-05-11 Outside nullFlavo MNA [id number] Memoria 19:22:00 05:59:59 Medical r Neuroscienc 00 l Records e [facility] 2018-05-09 2018-05-10 Outpatient MHMISCHER MHMISCHER [id number] 13:22:00 23:59:59 2016-10-04 2016-10-04 Emergency nullFlavo [facility] 78304 [id number] Memoria 18:50:00 22:28:00 r Jeffery The 06 l [facility] 2016-10-04 2016-10-04 Outpatient SAUMYA Cole [facility] [id number] 13:50:00 17:28:00 Yung De La Paz 2015-09-08 2015-09-08 EC nullFlavo [facility] [id number] Memoria 11:17:00 12:59:00 Emergency r Jeffery The 05 l [facility] 2015-09-08 2015-09-08 Outpatient SAUMYA Jean [facility] [id number] 06:17:00 07:59:00 Gaurav Montoya 2015-08-27 2015-08-27 EC nullFlavo [facility] [id number] Memoria 03:11:00 05:05:00 Emergency r Jeffery The 04 l [facility] 2015-08-26 2015-08-27 Outpatient SAUMYA Moore [facility] [id number] 22:11:00 00:05:00 Melquiades Lyndon Yung 2015-07-12 2015-07-12 Unknown nullFlavo [facility] 25175 f00-2 Memoria 18:16:00 18:16:00 r [facility] h7n-1if9-s l Medicine, [id number] [facility] l13401 2015-07-12 2015-07-12 Outpatient [facility] [id number] eClinic 13:16:00 13:16:00 [facility] Medicine, Medicine, [facility]. PLL[facility]. 2015-05-09 2015-05-09 Refill nullFlavo [facility] 6aa5b f48-c Memoria 21:44:00 21:44:00 r Family bbd-47ae-a l Medicine, 0j4-816v20 [facility] e891ed 2015-05-09 2015-05-09 Refill nullFlavo [facility] be673 92d-c Memoria 20:44:00 20:44:00 r Family ca2-4b9e-8 l Medicine, 479-c02d13 [facility] 2923e6 2015-05-09 2015-05-09 Outpatient [facility] [id number] eClinic 15:44:00 15:44:00 [facility], [facility]. [facility]. 2015-05-02 2015-05-02 Refill nullFlavo [facility] d7e80 673-f Memoria 18:43:00 18:43:00 Request r Family fbf-4bfd-a l Medicine, 740-16c9d5 [facility] b77e0c 2015-05-02 2015-05-02 Refill nullFlavo [facility] 4733e 552-2 Memoria 18:43:00 18:43:00 Request r Family 2k9-1004-8 l Medicine, 5z6-59ul0s [facility] f52e80 2015-05-02 2015-05-02 Refill nullFlavo [facility] 141ec f63-f Memoria 17:43:00 17:43:00 Request r cde-4737-8 l Medicine, af1-i6441h [facility] a4c4ba 2015-05-02 2015-05-02 Outpatient [facility] [id number] eClinic 12:43:00 12:43:00 [facility], [facility]. [facility]. 2014-12-13 2014-12-14 Outpatient nullFlavo [facility] [id number] Memoria 21:07:00 04:59:00 r Outpatient 14 l Imaging [facility] 2014-12-13 2014-12-13 Outpatient Korin Lopez [place] [id number] 16:07:00 23:59:00 Guillermina 14 2014-12-12 2014-12-12 Unknown nullFlavo [place] 36173b de-7 Memoria 15:20:00 15:20:00 r Primary 633-4fba-8 l Care, [place] 6a4-505j3z Herm justo 635d15 2014-12-12 2014-12-12 Unknown nullFlavo [place] cf6a5d 40-3 Memoria 15:20:00 15:20:00 r Primary ba2-426d-a l Care, [place] 29d-6324cf Herm justo 97664s 2014-12-12 2014-12-12 Unknown nullFlavo [place] afcb17 ce-f Memoria 14:20:00 14:20:00 r Primary h98-0n51-w l Care, [place] 15b-2094f8 [facility] 91aab4 2014-09-12 2014-09-13 Outpt Diag nullFlavo [facility] 53875 20159 Memoria 22:00:00 04:59:00 Services r Outpatient 13 l Imaging [facility] 2014-09-12 2014-09-12 Outpatient Sprintz, 2.16.840. 2.16.840.1. [id number] 17:00:00 23:59:00 Gaurav [id number]. [id number] Yariel 3.615.0.1 5.0.459 59 0534-06-02 2014-08-08 Outpt Diag nullFlavo [facility] 37925 68412 Memoria 12:37:00 04:59:00 Services r Outpatient 12 l Imaging [facility] 2014-08-07 2014-08-07 Outpatient Kristin, 2.16.840. 2.16.840.1. 8 [id number] 07:37:00 23:59:00 [place] [id number]. [id number] 12 B 3.615.0.1 5.0.113 28 3781-03-26 2014-05-31 Medication nullFlavo [facility] 74 fb0014-i Memoria 17:09:00 17:09:00 cost r 2ae-4465-9 l Medicine, [id number] [facility] 29bfe9 2014-05-31 2014-05-31 Medication nullFlavo [facility] 28 9k58yn-e Memoria 17:09:00 17:09:00 cost r 5p5-70kq-1 l Medicine, 343-h4833s [facility] f0b79c 2014-05-31 2014-05-31 Medication nullFlavo [facility] 52 kmq17f-0 Memoria 16:09:00 16:09:00 cost r Family 1l0-4lop-s l Medicine, 642-1t527z [facility] b74fcd 2014-05-07 2014-05-07 Unknown nullFlavo [facility] e3ab7 e15-7 Memoria 17:00:00 17:00:00 r Family 364-449e-a l Medicine, k67-iq5v4f [facility] 8f87be 2014-05-07 2014-05-07 Unknown nullFlavo Kristofer Ocampo 3aed8 898-5 Memoria 17:00:00 17:00:00 r Family ca3-404f-a l Medicine, 001-4270c8 [facility] 60g524 2014-05-07 2014-05-07 Unknown nullFlavo Kristofer Ocampo 95aa3 152-4 Memoria 16:00:00 16:00:00 r Family o6g-1c50-l l Medicine, 6f0-082lzi [facility] ppm617 2014-04-23 2014-04-23 questions nullFlavo Kristofer Ocampo 383 12b90-3 Memoria 22:04:00 22:04:00 r Family a62-6vev-x l Medicine, 6fc-3n116l [facility] 877f4e 2014-04-23 2014-04-23 questions nullFlavo Kristofer Ocampo 598 p479r-s Memoria 22:04:00 22:04:00 r Family 4ab-4988-9 l Medicine, ff2-9ad45a [facility] 2n6136 2014-04-23 2014-04-23 questions nullFlavo Kristofer Ocampo 70f 8zv06-6 Memoria 21:04:00 21:04:00 r Family 35a-4a76-b l Medicine, j19-x6y60z [facility] bc3dc2 2014-04-23 2014-04-23 having a nullFlavo Kristofer Ocampo 6b64 e4e6-1 Memoria 19:30:00 19:30:00 problem r Family be0-42f9-8 l sleeping, Medicine, 35e-89b4c9 [facility]. 97388r and diarrhea 2014-04-23 2014-04-23 having a nullFlavo Kristofer Ocampo da43 a1ca-a Memoria 19:30:00 19:30:00 problem r Family 705-4dc9-9 l sleeping, Medicine, 412-8bed17 [facility] 4b89b3 and diarrhea 2014-04-23 2014-04-23 having a nullFlavo Kristofer Ocampo fd0a 08aa-4 Memoria 18:30:00 18:30:00 problem r Family 980-4b5f-a l sleeping, Medicine, 3d8-g7cs60 [facility] 70k725 and diarrhea 2014-04-19 2014-04-19 sleep nullFlavo Kristofer Ocampo 06e17 4d6-c Memoria 15:37:00 15:37:00 r acc-4708-b l Medicine, 7s5-049454 [facility] 8f5b76 2014-04-19 2014-04-19 sleep nullFlavo Kristofer Ocampo b80fa e83-a Memoria 15:37:00 15:37:00 r j13-8i67-o l Medicine, 60d-234ad8 [facility] 750b74 2014-04-19 2014-04-19 sleep nullFlavo Kristofer Ocampo fd715 e9d-d Memoria 14:37:00 14:37:00 r 2e0-7ju3-f l Medicine, 8b0-g99r94 [facility] 0eadb2 2014-04-10 2014-04-10 requesting nullFlavo Kristofer Ocampo 43 452z7n-7 Memoria 14:21:00 14:21:00 Cipro r 06a-40db-8 l Medicine, v1x-58449x [facility] 04a79d 2014-04-10 2014-04-10 requesting nullFlavo Kristofer Ocampo 15 eeedc9-f Memoria 14:21:00 14:21:00 Cipro r 10d-4902-9 l Medicine, 2y5-w24642 [facility] eb83bf 2014-04-10 2014-04-10 requesting nullFlavo Krisotfer Ocampo 50 26b07e-3 Memoria 13:21:00 13:21:00 Cipro r 33c-4c8e-8 l Medicine, 874-2y6844 [facility] 7c1540 2014-04-03 2014-04-03 refill nullFlavo Kristofer Ocampo dc5dd 565-6 Memoria 20:13:00 20:13:00 request r 948-44ef-a l for Medicine, 57f-d3fb7f [facility] pre[facility]in [facility]. 939c2e 0.625 2014-04-03 2014-04-03 refill nullFlavo Kristofer Ocampo 2afb8 275-6 Memoria 20:13:00 20:13:00 request r Family 750-4590-a l for Medicine, da9-33e2c8 [facility] d079d8 0.625 2014-04-03 2014-04-03 refill nullFlavo [facility] 78712 a6e-b Memoria 19:13:00 19:13:00 request r Family j86-483c-1 l for Medicine, 59b-e50bdf [facility] 22cc33 0.625 2014-04-03 2014-04-03 Unknown nullFlavo [facility] 1b2fd fad-e Memoria 16:45:00 16:45:00 r Family 76b-444a-b l Medicine, 651-29994p [facility] w0g444 2014-04-03 2014-04-03 Unknown nullFlavo [facility] 402bd 74e-9 Memoria 16:45:00 16:45:00 r Family alex-4585-a l Medicine, dc2-4h8124 [facility] xz1361 2014-04-03 2014-04-03 Unknown nullFlavo [facility] 54636 24f-3 Memoria 16:45:00 16:45:00 r Family 5v8-7i08-k l Medicine, 6n5-60w22t [facility] f09e3f 2014-04-03 2014-04-03 Unknown nullFlavo [facility] c6497 c36-a Memoria 16:45:00 16:45:00 r Family 84c-4086-8 l Medicine, 7a3-o20965 [facility] 21w503 2014-04-03 2014-04-03 Unknown nullFlavo [facility] ea4d3 6d4-9 Memoria 15:45:00 15:45:00 r Family 4cb-4006-b l Medicine, ca0-342f54 [facility] b4ac21 2014-04-03 2014-04-03 Unknown nullFlavo [facility] 9054c 42d-b Memoria 15:45:00 15:45:00 r Family k82-88g3-j l Medicine, 0q6-5y07k0 [facility] 29l339 2014-03-27 2014-03-27 has nullFlavo [facility] 4359c 8e4-4 Memoria 14:08:00 14:08:00 another r Family 1fc-4acb-9 l sinus Medicine, 9h9-o05110 [facility] fe7d73 2014-03-27 2014-03-27 has nullFlavo Kristofer Ocampo a09bf 6d9-4 Memoria 14:08:00 14:08:00 another r Family n96-24lw-8 l sinus Medicine, 063-190809 [facility] e2f7a9 2014-03-27 2014-03-27 has nullFlavo Kristofer Ocampo 3b7d3 d4e-a Memoria 13:08:00 13:08:00 another r Family 4w1-22go-u l sinus Medicine, 92e-3fc2c5 [facility] 57e8be 2014-03-16 2014-03-16 Other leslieFlavo [facility] 7fda0 32a-c Memoria 16:43:00 16:43:00 r Family g0w-5428-4 l Medicine, 317-g7z564 [facility] 23fa4a 2014-03-16 2014-03-16 Other leslieFlavo [facility] ca720 6d4-0 Memoria 16:43:00 16:43:00 r Family db8-4c61-8 l Medicine, 299-f080c7 [facility] 21953x 2014-03-16 2014-03-16 Other leslieFlavo [facility] a6c72 19a-4 Memoria 15:43:00 15:43:00 r Family o72-4g5k-c l Medicine, u19-duc82y [facility] 2e4967 2014-02-06 2014-02-06 refill nullFlavo Kristofer [place] 5294d 6e4-e Memoria 14:12:00 14:12:00 request r Family eaf-4f1d-b l for Nexium Medicine, 478-0k8695 [place] [facility]. 8ae10b 2014-02-06 2014-02-06 refill nullFlavo Kristofer Ocampo ee1e7 405-3 Memoria 14:12:00 14:12:00 request r Family 8cc-44d1-8 l for Nexium Medicine, 40f-2fcabf [facility]. fa3e29 2014-02-06 2014-02-06 refill nullFlavo Kristofer Ocampo 0eebf e83-5 Memoria 13:12:00 13:12:00 request r z0v-2306-9 l for Nexium Medicine, 4k4-2v09ym [facility]. 7ae96e 2014-01-24 2014-01-24 refill nullFlavo Kristofer Ocampo 86ab3 8b5-1 Memoria 20:24:00 20:24:00 request r 02c-4855-9 l for Medicine, ff6-77fc17 [facility] c8b24d 0.625 Cream 2014-01-24 2014-01-24 refill nullFlavo Kristofer Ocampo 897dc b6c-5 Memoria 20:24:00 20:24:00 request r j8f-93a8-d l for Medicine, u54-n5053m [facility] 39f0c2 0.625 Cream 2014-01-24 2014-01-24 refill nullFlavo Kristofer Ocampo c5bb5 6ff-b Memoria 19:24:00 19:24:00 request r 5r5-935m-9 l for Medicine, 0ce-170438 [facility] 109e33 0.625 Cream 2014-01-23 2014-01-23 Bedded nullFlavo [facility] [id number] 975 Memoria 15:00:00 19:10:00 Outpatient bhavesh Jeffery [facility] 2014-01-23 2014-01-23 Outpatient Kristin, 2.16.840. 2.16.840.1. 8 [id number] 09:00:00 13:10:00 [place] [id number]. [id number] 03 B 3.615.0.1 5.0.434 91 4915-10-24 2013-12-29 pre-op nullFlavo Kristofer Ocampo 2ef68 472-0 Memoria 14:45:00 14:45:00 cleared r 9da-48e7-9 l for Medicine, c65-14s18m [facility] 3s3644 Wednesday2013-12-29 2013-12-29 pre-op nullFlavo Kristofer Ocampo 3f3d4 d16-0 Memoria 14:45:00 14:45:00 cleared r Family ab2-4f52-8 l for Medicine, 4c2-38g7e5 [facility] 30h746 Wednesday2013-12-29 2013-12-29 pre-op nullFlavo Kristofer Ocampo 5b66f 12c-a Memoria 13:45:00 13:45:00 cleared r Family 3y1-0616-r l for Medicine, i97-6502o6 [facility] 3722fe Wednesday2013-12-28 2013-12-29 Outpatient nullFlavo [facility] 8501 083987 Memoria 17:48:00 04:59:[address] 2013-12-28 2013-12-28 Outpatient Kristin, 2.16.840. 2.16.840.1. 8 [id number] 12:48:00 23:59:00 [place] 1.493179. [id number] 02 B 3.615.0.1 5.0.674 98 8379-10-17 2013-12-22 Refill nullFlavo [facility] bc9ea 227-7 Memoria 15:47:00 15:47:00 r Family n4p-6563-9 l Medicine, 8da-bb9d65 [facility] 259f22 2013-12-22 2013-12-22 Refill nullFlavo [facility] 2fad7 b7c-2 Memoria 15:47:00 15:47:00 r Family 1e0-6am7-p l Medicine, dde-7bc1b9 [facility] ffa7f7 2013-12-22 2013-12-22 Refill nullFlavo [facility] a4568 66e-8 Memoria 14:47:00 14:47:00 r Family n17-45f4-1 l Medicine, 39b-a22cb0 [facility] k5x014 2013-12-20 2013-12-20 Unknown nullFlavo [facility] 29930 6cb-3 Memoria 14:18:00 14:18:00 r Family 695-48a1-8 l Medicine, 9v1-209w2c [facility] 4375dd 2013-12-20 2013-12-20 Unknown nullFlavo [facility] 176cc df9-a Memoria 14:18:00 14:18:00 r Family 4j7-6656-m l Medicine, 028-ccf46f [facility] b6e91f 2013-12-20 2013-12-20 Unknown nullFlavo [facility] 83a51 bb7-e Memoria 13:18:00 13:18:00 r Family ce1-428c-9 l Medicine, t9m-ae973j [facility] ddac27 2013-10-23 2013-10-23 Unknown nullFlavo [facility] 1ba02 295-c Memoria 03:57:00 03:57:00 r Family a31-5900-0 l Medicine, 5ba-51d13e [facility] y9060w 2013-10-23 2013-10-23 Unknown nullFlavo [facility] 9da3c 4f0-0 Memoria 03:57:00 03:57:00 r Family 4af-4b49-a l Medicine, ca2-445c55 [facility] 7bb3ba 2013-10-23 2013-10-23 Unknown nullFlavo [facility] 951f6 7a1-2 Memoria 02:57:00 02:57:00 r Family bc3-4981-a l Medicine, 201-130a04 [facility] i8948p 2013-10-13 2013-10-13 WATER PILL nullFlavo [facility] 53 889e11-2 Memoria 20:46:00 20:46:00 CHANGE TO r Family 54a-419d-b l [facility] Medicine, e05-s7l439 [facility] 11761o 2013-10-13 2013-10-13 WATER PILL nullFlavo [facility] 97 84247l-d Memoria 20:46:00 20:46:00 CHANGE TO r Family 757-454c-8 l [facility] Medicine, bdb-3e4a5a [facility] f7c65f 2013-10-13 2013-10-13 WATER PILL nullFlavo [facility] f0 9ptxj3-8 Memoria 19:46:00 19:46:00 CHANGE TO r Family 081-453e-9 l [facility]AS[facility] Medicine, 9t3-16093a [facility] e5bcfd 2013-10-12 2013-10-12 NEXIUM nullFlavo [facility] 7786f 048-3 Memoria 22:04:00 22:04:00 REFILL r Family h43-1c6g-j l Medicine, 24a-868332 [facility] zzu948 2013-10-12 2013-10-12 NEXIUM nullFlavo [facility] 4fa20 6d6-a Memoria 22:04:00 22:04:00 REFILL r Family d56-527w-1 l Medicine, 7eb-88q139 [facility] dfca53 2013-10-12 2013-10-12 NEXIUM nullFlavo [facility] 006a7 6e0-9 Memoria 21:04:00 21:04:00 REFILL r Family 69c-41ed-b l Medicine, 708-3cb6f1 [facility] 627f75 2013-10-09 2013-10-09 Refill nullFlavo [facility] 73e4a 343-d Memoria 17:36:00 17:36:00 r Family 188-46f8-b l Medicine, 61b-db24ea [facility] d7ea3b 2013-10-09 2013-10-09 Refill nullFlavo [facility] 89a39 9b3-2 Memoria 17:36:00 17:36:00 r Family 1d1-8l0i-y l Medicine, 83e-7l513p [facility] d3w500 2013-10-09 2013-10-09 Refill nullFlavo [facility] 160ee 795-1 Memoria 16:36:00 16:36:00 r Family 214-4d4b-8 l Medicine, 5df-be09fb [facility] 0a85be 2013-10-06 2013-10-06 Refill nullFlavo [facility] 5b5f5 f0d-3 Memoria 20:56:00 20:56:00 r Family m88-9onl-6 l Medicine, dcc-4c5e00 [facility] 394cbf 2013-10-06 2013-10-06 Refill nullFlavo [facility] e203e b8e-7 Memoria 20:56:00 20:56:00 r Family e45-7171-2 l Medicine, b3f-325o73 [facility] 0q398i 2013-10-06 2013-10-06 Refill nullFlavo [facility] ef1e3 c76-f Memoria 19:56:00 19:56:00 r Family g8w-4q04-4 l Medicine, 68c-3d18c5 [facility] 04w783 2013-10-03 2013-10-03 MEDICAL nullFlavo [facility] bf977 b56-d Memoria 17:22:00 17:22:00 QUESTION r Family 939-46c9-8 l Medicine, v15-38o7oc [facility] 6z974p 2013-10-03 2013-10-03 MEDICAL nullFlavo [facility] b4a40 108-3 Memoria 17:22:00 17:22:00 QUESTION r Family 86b-4a7a-8 l Medicine, 338-15bbc9 [facility] 007199 1238-07-29 2013-10-03 MEDICAL nullFlavo [facility] de0cb 796-7 Memoria 16:22:00 16:22:00 QUESTION r Family [id number] l Medicine, [id number] [facility] [id number] 2101-07-22 2013-09-26 FOOT nullFlavo [facility] [id number] a27-4 Memoria 19:30:00 19:30:00 r Family [id number] l Medicine, [id number] [facility] [id number] 2013-09-26 2013-09-26 FOOT nullFlavo [facility] 87793 7d5-9 Memoria 19:30:00 19:30:00 r Family [id number] l Medicine, [id number] [facility] [id number] 2013-09-26 2013-09-26 FOOT nullFlavo [facility] afdfb d2c-7 Memoria 18:30:00 18:30:00 r Family [id number] l Medicine, [id number] [facility] [id number] 2013-09-22 2013-09-23 Outpt Diag nullFlavo [facility] [id number] Memoria 18:05:00 04:59:00 Services r Outpatient 11 l Imaging [facility] 2013-09-22 2013-09-22 Outpatient Oscar, 2.16.840. 2.16.840.1. 8 [id number] 13:05:00 23:59:00 Sami [id number] 11 José 3.615.0.1 5.0.849 57 9146-07-02 2013-09-07 Outpt Josue Lozada [facility] [id number] Willy 22:02:00 04:59:00 Services r Outpatient 10 l Imaging [facility] 2013-09-06 2013-09-06 Outpatient Thuy, 2.16.840. 2.16.840. 1. [id number] 17:02:00 23:59:00 Gladis José [id number] 10 3.615.0.1 5.0.101 01 Results Test Description Test Time Test Comments Results Result Comments Source Comprehensive metabolic panel 2021-08-31 13:07:00 Test Item Value Reference Range Interpretation Comme nts Glucose, Serum (test code 109 mg/dL 65-99 H = 20100708) BUN (test code = 20100709) 24 mg/dL 8-27 Creatinine, Serum (test 0.76 mg/dL 0.57-1.00 code = 20100801) EGFR (test code = 87 mL/min/1.73 >59 [id number]) BUN/Creatinine Ratio (test 32 12-28 H code = 7601028) Sodium, Serum (test code = 143 mmol/L 134-892 0328453) Potassium, Serum (test 4.6 mmol/L 3.5-5.2 code = 2486253) Chloride, Serum (test code 104 mmol/L 96-106 = 20100726) Carbon Dioxide, Total 22 mmol/L 20-29 (test code = 4162821) Calcium, Serum (test code 9.6 mg/dL 8.7-10.3 = 20100706) Protein, Total, Serum 7.4 g/dL 6.0-8.5 (test code = 20100713) Albumin, Serum (test code 5.0 g/dL 3.8-4.8 H = 20100714) Globulin, Total (test code 2.4 g/dL 1.5-4.5 = ) A/G Ratio (test code = 2.1 1.2-2.2 ) Bilirubin, Total (test 0.3 mg/dL 0.0-1.2 code = 9951086) Alkaline Phosphatase, S 128 See_Comment H [Au tomated message] (test code = 6768-6) The sys tem which generated this result transmitted ref erence range: 44 - 121 IU/L. The reference r morales was not used to int erpret this result as normal/abnormal . AST (SGOT) (test code = 19 See_Comment [Au tomated message] 20100719) The system [employer] generated this result transmitted ref erence range: 0 - 40 I U/L. The reference range was not used to interpr et this result as normal/abnormal . ALT (SGPT) (test code = 17 See_Comment [Au tomated message] ) The system [employer] generated this result transmitted ref erence range: 0 - 32 I U/L. The reference range was not used to interpr et this result as normal/abnormal . RUI (test code = RUI) Performed at: [address] [place] [address] [id number] Director: Alberto Morrissey MD, Phone: [phone] Lab Interpretation (test Abnormal code = 38726-0) [id number] Test Item Value Reference Range Interpretation Comments Cholesterol, Total (test 240 mg/dL 100-199 H code = 2093-3) Triglycerides (test code 67 mg/dL 0-149 = 2571-8) HDL Cholesterol (test 116 mg/dL >39 code = 2085-9) VLDL Cholesterol Chanell 11 mg/dL 5-40 (test code = 56063-0) LDL Calculated (test code 113 mg/dL 0-99 H = 07891-4) RUI (test code = RUI) Performed at: [address] [place] [address] [id number] Director: Alberto Morrissey MD, Phone: [phone] Lab Interpretation (test Abnormal code = 49775-3) [facility] [id number] 13:07:00 Test Item Value Reference Range Interpretation Comments Hemoglobin A1c 5.5 % 4.8-5.6 Prediabetes: (test code = 5.7 - 6.4 2018-4) Diabetes: >6.4 Glycemic contro l for adults with diabetes: <7.0 RUI (test code = Performed at: ) [facility] [id number] Director: Alberto Morrissey MD, Phone: [phone] [facility] [id number] 13:07:00 Test Item Value Reference Interpretation Comments Range Urine Final report A Culture,Comprehensiv e (test code = 8820447) Result 1 (test code Comment A Escheric hia coli, = 3220565) identified by a n automated biochemical system.10,000-2 5,000 colony forming units per mL Antimicrobial Comment S = Suscep tible; Susceptibility (test I = Int ermediate; R code = 9088644) = Resistant P = Positive; N = Negative MICS a re expressed in micrograms per mL Antibiotic RSLT #1 RSLT#2 RSLT#3 RSLT#4Amoxicill in/Cl avulanic Acid IAmpicillin RCefepime SCeftriaxone SCefuroxime SCiprofloxacin SErtapenem SGentamicin RImipenem SLevofloxacin SMeropenem SNitrofurantoin SPiperacillin/T azoba ctam STetracyc line STobramycin STrimethoprim/S ulfa R RUI (test code = Performed at: RUI) - [facility] [address] [id number] Director: Alberto Morrissey MD, Phone: [phone] Lab Interpretation Abnormal (test code = 31344-6) [facility] + automated [id number] 13:07:00 Test Item Value Reference Range Interpretation Comments WBC (test code = 5.4 See_Comment [Automated ) message] The system which generated this result transmit lola reference range : 3.4 - 10.8 x10E3/uL. The reference range was not used to interpret this result as normal/abnormal . RBC (test code = 4.11 See_Comment [Automated 233-8) message] The system which generated this result transmit lola reference range : 3.77 - 5.28 x10E6/uL. The reference range was not used to interpret this result as normal/abnormal . Hemoglobin (test 13.0 g/dL 11.1-15.9 code = ) Hematocrit (test 38.8 % 34.0-46.6 code = ) MCV (test code = 94 fL 79-97 ) MCH (test code = 31.6 pg 26.6-33.0 ) MCHC (test code = 33.5 g/dL 31.5-35.7 ) RDW (test code = 12.1 % 11.7-15.4 ) Platelets (test 213 See_Comment [Automated code = ) message] The system which generated this result transmit lola reference range : 150 - 450 x10E3/uL. The reference range was not used to interpret this result as normal/abnormal . % Neutros (test 56 % Not Estab. code = ) % Lymphs (test 34 % Not Estab. code = ) % Monos (test code 7 % Not Estab. = ) % Eos (test code = 2 % Not Estab. ) % Baso (test code 1 % Not Estab. = ) # Neutros (test 3.1 See_Comment [Automated code = ) message] The system which generated this result transmit lola reference range : 1.4 - 7.0 x10E3/uL. The reference range was not used to interpret this result as normal/abnormal . # Lymphs (test 1.9 See_Comment [Automated code = ) message] The system which generated this result transmit lola reference range : 0.7 - 3.1 x10E3/uL. The reference range was not used to interpret this result as normal/abnormal . # Monos (test code 0.4 See_Comment [Automat ed = ) message] The system which generated this result transmit lola reference range : 0.1 - 0.9 x10E3/uL. The reference range was not used to interpret this result as normal/abnormal . # Eos (test code = 0.1 See_Comment [Automat ed ) message] The system which generated this result transmit lola reference range : 0.0 - 0.4 x10E3/uL. The reference range was not used to interpret this result as normal/abnormal . Baso (Absolute) 0.0 See_Comment [Automated (test code = message] The ) system which generated this result transmit lola reference range : 0.0 - 0.2 x10E3/uL. The reference range was not used to interpret this result as normal/abnormal . % Immature Grans 0 % Not Estab. (test code = ) # Immature Grans 0.0 See_Comment [Automated (test code = message] The ) system which generated this result transmit lola reference range : 0.0 - 0.1 x10E3/uL. The reference range was not used to interpret this result as normal/abnormal . RUI (test code = Performed at: ) [facility] [id number] Director: Alberto Morrissey MD, Phone: [phone] [facility] [id number] 13:07:00 Test Item Value Reference Range Interpretation Comments Hep C Virus Ab 0.6 See_Comment Negative: < 0.8 (test code = Indeterminate: 0.8 - 20111123) 0.9 Positive: > 0.9 HCV antibody al one does not differentiate b etween previous resolv ed infection and a ctive infection. The CDC and current cli nical guidelines poornima mmend that a positive HCV antibody result be followed up wit h an HCV RNA test to support the ruthann gnosis of acute HCV infection. [facility] orp offers Hepatiti s C Virus (HCV) RNA , Diagnosis, TRIPP (459600) and Hepatitis C Vir us (HCV) Antibody with reflex to Quantitative Real-time PCR (028420). [Auto mated message] The sy stem which generated this result transmit lola reference range : 0.0 - 0.9 s/co rati o. The reference range was not used to int erpret this result as normal/abnormal . RUI (test code Performed at: - RUI) [facility] [address] [id number] Director: Alberto Morrissey MD, Phone: [phone] [facility] [id number] 13:07:00 Test Item Value Reference Range Interpretation Comments Glucose, Serum (test 109 mg/dL 65-99 H code = 7933266) BUN (test code = 24 mg/dL 8-27 20100709) Creatinine, Serum 0.76 mg/dL 0.57-1.00 (test code = 20100801) EGFR (test code = 87 mL/min/1.73 >59 [id number]) BUN/Creatinine Ratio 32 12-28 H (test code = 0341369) Sodium, Serum (test 143 mmol/L 134-144 code = 20100725) Potassium, Serum 4.6 mmol/L 3.5-5.2 (test code = 20100724) Chloride, Serum (test 104 mmol/L 96-106 code = 20100726) Carbon Dioxide, Total 22 mmol/L 20-29 (test code = ) Calcium, Serum (test 9.6 mg/dL 8.7-10.3 code = 20100706) Protein, Total, Serum 7.4 g/dL 6.0-8.5 (test code = 20100713) Albumin, Serum (test 5.0 g/dL 3.8-4.8 H code = 20100714) Globulin, Total (test 2.4 g/dL 1.5-4.5 code = ) A/G Ratio (test code 2.1 1.2-2.2 = ) Bilirubin, Total 0.3 mg/dL 0.0-1.2 (test code = 20100715) Alkaline Phosphatase, 128 See_Comment H [Auto mated S (test code = message] The 6768-6) system which generated this result transmitted reference range : 44 - 121 IU/L. The reference range was not used to interpr et this result as normal/abnormal . AST (SGOT) (test code 19 See_Comment [Auto mated = 20100719) message] The system which generated this result transmitted reference range : 0 - 40 IU/L. Th e reference range was not used to interpret this result as normal/abnormal . ALT (SGPT) (test code 17 See_Comment [Auto mated = ) message] The system which generated this result transmitted reference range : 0 - 32 IU/L. Th e reference range was not used to interpret this result as normal/abnormal . RUI (test code = RUI) Performed at: [address] [place] [id number] Director: Alberto Morrissey MD, Phone: [phone] Lab Interpretation Abnormal (test code = 39382-4) [facility]Lipid [id number] 13:07:00 Test Item Value Reference Range Interpretation Comments Cholesterol, Total (test 240 mg/dL 100-199 H code = 2093-3) Triglycerides (test code 67 mg/dL 0-149 = 2571-8) HDL Cholesterol (test 116 mg/dL >39 code = 2085-9) VLDL Cholesterol Chanell 11 mg/dL 5-40 (test code = 86450-7) LDL Calculated (test code 113 mg/dL 0-99 H = 37992-2) RUI (test code = RUI) Performed at: - [facility] [id number] Director: Alberto Morrissey MD, Phone: [phone] Lab Interpretation (test Abnormal code = 43158-2) [facility] [id number] 13:07:00 Test Item Value Reference Range Interpretation Comments Hemoglobin A1c 5.5 % 4.8-5.6 Prediabetes: (test code = 5.7 - 6.4 4548-4) Diabetes: >6.4 Glycemic contro l for adults with diabetes: <7.0 RUI (test code = Performed at: - RUI) [facility] [id number] Director: Alberto Morrissey MD, Phone: [phone] [facility] [id number] 13:07:00 Test Item Value Reference Interpretation Comments Range Urine Final report A Culture,Comprehensiv e (test code = 9544211) Result 1 (test code Comment A Escheric hia coli, = 4843727) identified by a n automated biochemical system.10,000-2 5,000 colony forming units per mL Antimicrobial Comment S = Suscep tible; Susceptibility (test I = Int ermediate; R code = 2258758) = Resistant P = Positive; N = Negative MICS a re expressed in micrograms per mL Antibiotic RSLT #1 RSLT#2 RSLT#3 RSLT#4Amoxicill in/Cl avulanic Acid IAmpicillin RCefepime SCeftriaxone SCefuroxime SCiprofloxacin SErtapenem SGentamicin RImipenem SLevofloxacin SMeropenem SNitrofurantoin SPiperacillin/T azoba ctam STetracycl ine STobramycin STrimethoprim/S ulfa R RUI (test code = Performed at: RUI) - [facility] [address] [place], [place] [id number] Director: Alberto Morrissey MD, Phone: [phone] Lab Interpretation Abnormal (test code = 24140-6) [facility] count + automated [id number] 13:07:00 Test Item Value Reference Range Interpretation Comments WBC (test code = 5.4 See_Comment [Automated ) message] The system which generated this result transmit lola reference range : 3.4 - 10.8 x10E3/uL. The reference range was not used to interpret this result as normal/abnormal . RBC (test code = 4.11 See_Comment [Automated 906-3) message] The system which generated this result transmit lola reference range : 3.77 - 5.28 x10E6/uL. The reference range was not used to interpret this result as normal/abnormal . Hemoglobin (test 13.0 g/dL 11.1-15.9 code = ) Hematocrit (test 38.8 % 34.0-46.6 code = ) MCV (test code = 94 fL 79-97 ) MCH (test code = 31.6 pg 26.6-33.0 ) MCHC (test code = 33.5 g/dL 31.5-35.7 ) RDW (test code = 12.1 % 11.7-15.4 ) Platelets (test 213 See_Comment [Automated code = ) message] The system which generated this result transmit lola reference range : 150 - 450 x10E3/uL. The reference range was not used to interpret this result as normal/abnormal . % Neutros (test 56 % Not Estab. code = ) % Lymphs (test 34 % Not Estab. code = ) % Monos (test code 7 % Not Estab. = ) % Eos (test code = 2 % Not Estab. ) % Baso (test code 1 % Not Estab. = ) # Neutros (test 3.1 See_Comment [Automated code = ) message] The system which generated this result transmit lola reference range : 1.4 - 7.0 x10E3/uL. The reference range was not used to interpret this result as normal/abnormal . # Lymphs (test 1.9 See_Comment [Automated code = ) message] The system which generated this result transmit lola reference range : 0.7 - 3.1 x10E3/uL. The reference range was not used to interpret this result as normal/abnormal . # Monos (test code 0.4 See_Comment [Automat ed = ) message] The system which generated this result transmit lola reference range : 0.1 - 0.9 x10E3/uL. The reference range was not used to interpret this result as normal/abnormal . # Eos (test code = 0.1 See_Comment [Automat ed ) message] The system which generated this result transmit lola reference range : 0.0 - 0.4 x10E3/uL. The reference range was not used to interpret this result as normal/abnormal . Baso (Absolute) 0.0 See_Comment [Automated (test code = message] The ) system which generated this result transmit lola reference range : 0.0 - 0.2 x10E3/uL. The reference range was not used to interpret this result as normal/abnormal . % Immature Grans 0 % Not Estab. (test code = ) # Immature Grans 0.0 See_Comment [Automated (test code = message] The ) system which generated this result transmit lola reference range : 0.0 - 0.1 x10E3/uL. The reference range was not used to interpret this result as normal/abnormal . RUI (test code = Performed at: RUI) [facility] [address] [place] [id number] Director: Alberto Morrissey MD, Phone: [phone] [facility] [id number] 13:07:00 Test Item Value Reference Range Interpretation Comments Hep C Virus Ab 0.6 See_Comment Negative: < 0.8 (test code = Indeterminate: 0.8 - 20111123) 0.9 Positive: > 0.9 HCV antibody al one does not differentiate b etween previous resolv ed infection and a ctive infection. The CDC and current cli nical guidelines poornima mmend that a positive HCV antibody result be followed up wit h an HCV RNA test to support the ruthann gnosis of acute HCV infection. [facility] orp offers Hepatiti s C Virus (HCV) RNA , Diagnosis, TRIPP (654565) and Hepatitis C Vir us (HCV) Antibody with reflex to Quantitative Real-time PCR (991045). [Auto mated message] The sy stem which generated this result transmit lola reference range : 0.0 - 0.9 s/co rati o. The reference range was not used to int erpret this result as normal/abnormal . RUI (test code Performed at: - = RUI) [facility] [address] [place], [place] [id number] Director: Alberto Morrissey MD, Phone: [phone] [address]2022-06-23 11:56:00 Test Item Value Reference Range Interpretation Comments Lab Interpretation (test code = Abnormal 03883-6) [address]2022-06-23 11:56:00 Test Item Value Reference Range Interpretation Comments Lab Interpretation (test code = Abnormal 55891-8) [facility] [id number] 11:27:00 Test Item Value Reference Range Interpretation Comments RUI (test code = RUI) Both eyes: 30/20Left eye: 30/20Right eye: 0Patient has Sargent vision Lab Interpretation (test Abnormal code = 05256-7) [facility] [id number] 11:27:00 Test Item Value Reference Range Interpretation Comments RUI (test code = RUI) Both eyes: 30/20Left eye: 30/20Right eye: 0Patient has Sargent vision Lab Interpretation (test Abnormal code = 23777-1) [facility] HospitalANDREW, TERESAS, [id number] 15:58:00Reason for Exam:- >[facility] 1955 Sex: FFINAL REPORT TECHNIQUE: Four views of the right ribs with a PA chest radiograph INDICATION: INTERCOSTAL PAIN. COMPARISON: None. FINDINGS: A linear opacity of the left lower lung is mostconsistent with scar or atelectasis. No pleural effusion or pneumothorax. The cardiac silhouette is normal in size. No displaced rib fracture. A spinal stability or overlies the mid thoracic spine. Hardware overlies the lower cervical spine. Posterior fusion at L3-L4. At least moderate degenerative disc changes at L2-L3 IMPRESSION: No acute, displaced right-sided rib fracture. Signed: Kusum Vitale MDRconne[place] hospice Verified Date/Time: 05/15/2020 15:58:07 Reading Location: [facility] Diagnostic Imaging Reading Room [place] [address] RAD, ANKLE, 2 VIEWS, [id number] 15:47:00Reason for Exam:->left ankle inury/pain/swelling [facility] : 1955 Sex: FFINAL REPORT TECHNIQUE: Three views of the left tibia and fibula. Two views of the left ankle INDICATION: PAIN IN LEFT LOWER LEG. Left ankle injury/pain/swelling COMPARISON: None. FINDINGS:No acute fractures or dislocations.Joint spaces are within normal limits.Soft tissues are grossly unremarkable. Plantar and dorsal calcaneal enthesophytes. IMPRESSION: No acute osseous abnormalitiesof the left tibia, fibula, or ankle. Signed: Kusum Vitale Verified Date/Time: 05/15/2020 15:47:49 Reading Location: [facility] Diagnostic Imaging Reading Room - [place] [address] RAD, LEG, [id number] 15:47:00Reason for Exam:->[facility] LEFT LOWER LEG [facility] 1955 Sex: FFINAL REPORT TECHNIQUE: Three views of the left tibia and fibula. Two views of the left ankle INDICATION: PAIN IN LEFT LOWER LEG. Left ankle injury/pain/swelling COMPARISON: None. FINDINGS:No acute fractures or dislocations.Joint spaces are within normal limits.Soft tissues are grossly unremarkable. Plantar and dorsal calcaneal enthesophytes. IMPRESSION: No acute osseous abnormalitiesof the left tibia, fibula, or ankle. Signed: Kusum Vitale Verified Date/Time: 05/15/2020 15:47:49 Reading Location: [facility] Diagnostic Imaging Reading Room - [place] [address] RAPID DRUG SCREEN, [id number] 14:42:00 Test Item Value Reference Range Interpretation Comments BARBITURATE URINE (BEAKER) (test Negative Negative code = 725) BENZODIAZEPINE SCREEN URINE (BEAKER) Positive Negative A (test code = 726) COCAINE (METAB.) SCREEN (BEAKER) Negative Negative (test code = 1164) METHADONE SCREEN (BEAKER) (test code Negative Negative = 1436) OPIATE SCREEN URINE (BEAKER) (test Negative Negative code = 734) CANNABINOID SCREEN URINE (BEAKER) Positive Negative A (test code = 727) AMPH/METHAMPH SCREEN (BEAKER) (test Negative Negative code = 1438) PHENCYCLIDINE SCREEN URINE (BEAKER) Negative Negative (test code = 608) PH UA (BEAKER) (test code = 467) 6.5 5.0-8.0 DRUG CUTOFF CONC.Cocaine 300 ng/mL Cannabinoid 50 ng/mLBenzodiazepine 200 ng/mLBarbiturate 200 ng/mLPhencyclidine 25 ng/mLOpiate 300 ng/mLMethadone 300 ng/mLAmphetamine/ 1000 ng/mL MethamphetamineThis assay provides an unconfirmed qualitative test result for the clinical management of patients in emergency situations. Chain of custody not maintained. Some rjvm-fmy-grujlqz medications, as well as adulterants, may cause inaccurate results. Clinical correlation should be applied. A more comprehensive drug screen or confirmation of a detected drug may be performed upon request.Rd Scientist ID - [id number] 2019-06-14 14:20:00 Test Item Value Reference Range Interpretation Comments TROPONIN I (BEAKER) (test code = 397) < ng/mL 0.00-0.15 Troponin I (TnI) levels must be interpreted in the context of the presenting symptoms and the clinical findings. Elevated TnI levels indicate myocardial damage, but are not specific for ischemic heart disease. Elevated TnI levels are seen in patients with other cardiac conditions (including myocarditis and congestive heart failure), and slight TnI elevations occur in patients with other conditions, including sepsis, renal failure, acidosis, acute neurological disease, and persistent tachyarrhythmia.Rd Scientist ID - [id number] LEVEL 2019-06-14 14:20:00 Test Item Value Reference Range Interpretation Comments ACETAMINOPHEN LEVEL (BEAKER) (test < ug/mL 10.0-30.0 L code = 344) Rd Scientist ID - [id number] METABOLIC [id number] 14:13:00 Test Item Value Reference Range Interpretation Comments SODIUM (BEAKER) 142 meq/L 135-148 (test code = 381) POTASSIUM (BEAKER) 3.9 meq/L 3.5-5.5 Specimen slightly (test code = 379) hemolyzed CHLORIDE (BEAKER) 109 meq/L 98-106 H (test code = 382) CO2 (BEAKER) (test 21 meq/L 20-31 code = 355) BLOOD UREA NITROGEN 21 mg/dL 10-26 (BEAKER) (test code = 354) CREATININE (BEAKER) 0.78 mg/dL 0.50-1.20 Specimen slightly (test code = 358) hemolyzed GLUCOSE RANDOM 102 mg/dL 70-110 (BEAKER) (test code = 652) CALCIUM (BEAKER) 9.3 mg/dL 8.5-10.5 (test code = 697) EGFR (BEAKER) (test 75 mL/min/1.73 ESTIMA LOLA GFR IS code = 1092) sq m NOT ACCURATE CREATININE CLEARANCE IN PREDICTING GLOMERULAR FILTRATION RATE . ESTIMATED GFR I S NOT APPLICABLE FOR DIALYSIS PATIEN TS. Rd Scientist ID - [id number] FUNCTION [id number] 14:13:00 Test Item Value Reference Range Interpretation Comments TOTAL PROTEIN (BEAKER) 7.9 gm/dL 6.0-8.5 Speci men slightly (test code = 770) hemolyzed ALBUMIN (BEAKER) (test 4.5 g/dL 3.5-5.0 Speci men slightly code = 1145) hemolyzed BILIRUBIN TOTAL 0.2 mg/dL 0.1-1.3 Specimen sli ghtly (BEAKER) (test code = hemoly zed 377) BILIRUBIN DIRECT 0.1 mg/dL 0.0-0.5 Specimen sl ightly (BEAKER) (test code = hemoly zed 706) ALKALINE PHOSPHATASE 145 U/L 30-115 H (BEAKER) (test code = 346) AST (SGOT) (BEAKER) 22 U/L 5-40 Specimen slightly (test code = 353) hemolyzed ALT (SGPT) (BEAKER) 18 U/L 6-50 Specimen slightly (test code = 347) hemolyzed Rd Scientist ID - [id number] 14:07:00 Test Item Value Reference Range Interpretation Comments SALICYLATE LEVEL (BEAKER) (test code < mg/dL 20.0-30.0 L = 764) Rd Scientist ID - [id number], SPINE, LUMBAR, 2 OR 3 [id number] 14:05:00Reason for exam:->BACK PAINFINAL REPORT RAD, SPINE, LUMBAR, 2 OR 3 VIEWS INDICATION: BACK PAIN COMPARISON:07/26/18 TECHNIQUE: AP and lateral views of the spine FINDINGS/IMPRESSION: Five lumbar type vertebra.Laminectomy defects at L3 and L4 with pedicle screws and interconnecting rods bridging these levels.Interbody bone graft at L3-4 and L5-S1. Marked disc space narrowing with vacuum phenomenon at L2-3 indicative of chronic degenerative disc disease. No fracture or subluxation. IMPRESSION:No significantinterval changeMultilevel postop and degenerative changes Signed: Bushra Rodríguez MDReport Verified D ate/Time: 06/14/2019 14:05:09 Reading Location: [facility] Radiology Reading Room [id number] 14:03:00 Test Item Value Reference Range Interpretation Comments ETHANOL (BEAKER) (test code = 400) < mg/dL <=10 Rd Scientist ID - [id number] W/PLT COUNT & AUTO [id number] 13:45:00 Test Item Value Reference Range Interpretation Comments WHITE BLOOD CELL COUNT (BEAKER) 5.3 K/ L 4.0-10.0 (test code = 775) RED BLOOD CELL COUNT (BEAKER) 4.11 M/ L 4.00-5.00 (test code = 761) HEMOGLOBIN (BEAKER) (test code = 12.7 GM/DL 12.0-15.5 410) HEMATOCRIT (BEAKER) (test code = 39.6 % 36.0-46.0 411) MEAN CORPUSCULAR VOLUME (BEAKER) 96.4 fL 82.0-99.0 (test code = 753) MEAN CORPUSCULAR HEMOGLOBIN 30.9 pg 27.0-33.0 (BEAKER) (test code = 751) MEAN CORPUSCULAR HEMOGLOBIN CONC 32.1 GM/DL 32.0-36.0 (BEAKER) (test code = 752) RED CELL DISTRIBUTION WIDTH 13.5 % 12.0-15.0 (BEAKER) (test code = 412) PLATELET COUNT (BEAKER) (test 235 K/CU MM 150-430 code = 756) MEAN PLATELET VOLUME (BEAKER) 10.4 fL 6.0-11.5 (test code = 754) NUCLEATED RED BLOOD CELLS 0 /100 WBC 0-0 (BEAKER) (test code = 413) NEUTROPHILS RELATIVE PERCENT 54 % (BEAKER) (test code = 429) LYMPHOCYTES RELATIVE PERCENT 31 % (BEAKER) (test code = 430) MONOCYTES RELATIVE PERCENT 9 % (BEAKER) (test code = 431) EOSINOPHILS RELATIVE PERCENT 4 % (BEAKER) (test code = 432) BASOPHILS RELATIVE PERCENT 1 % (BEAKER) (test code = 437) NEUTROPHILS ABSOLUTE COUNT 2.88 K/ L 1.80-8.00 (BEAKER) (test code = 670) LYMPHOCYTES ABSOLUTE COUNT 1.66 K/ L 1.48-4.50 (BEAKER) (test code = 414) MONOCYTES ABSOLUTE COUNT (BEAKER) 0.48 K/ L 0.00-1.30 (test code = 415) EOSINOPHILS ABSOLUTE COUNT 0.21 K/ L 0.00-0.50 (BEAKER) (test code = 416) BASOPHILS ABSOLUTE COUNT (BEAKER) 0.05 K/ L 0.00-0.20 (test code = 417) IMMATURE GRANULOCYTES-RELATIVE 0 % 0-0 PERCENT (BEAKER) (test code = 2801) MR, SPINE, LUMBAR, WITHOUT / WITH IV [id number] 17:00:00FINAL REPORT MRI OF THE LUMBAR SPINE WITHOUT AND WITH INTRAVENOUS CONTRAST HISTORY: Lumbar radiculopathy COMPARISON: MRI lumbar spine of 06/04/2016, CT lumbar myelogram of 07/10/2016 TECHNIQUE: Multiplanar multisequence MRI of the lumbar spine was performed without and with intravenous contrast. FINDINGS: Levels: 5 lumbar vertebral bodies. The conus medullaris is unremarkable and terminates at the level of T12-L1. T12-L1: Minimal central disc protrusion. L1-L2: Minimal disc bulge. Mild facet arthrosis. L2-L3: Moderate disc space narrowing, more pronounced on the right where there are degenerative endplate changes. Mild to moderate bulge of the disc osteophyte complex, more pronounced on the right. Prior L3 laminectomies. Arthrosis of the facet joint remnants. Mild spinal canal and bilateral lateral recess stenosis and moderate to severe right and mild/moderate left foraminal stenosis. L3-L4: Status post laminectomies, partial facetectomies, and posterior lumbar interbody fusion. Bilateral pedicle screws and posterior rods are present as is an interbody spacer. Mild disc spacenarrowing with mild L3 spondylolisthesis. There is enhancing epidural scar anteriorly. Arthrosis of the facet joint remnants. Mild bulge of the disc remnant. Mild bilateral foraminal stenosis. No residual spinal canal stenosis. L4-L5: Mild L4 spondylolisthesis. Prior laminectomies and partial facetectomies. Enhancing epidural scar anteriorly. Arthrosis of the facet joint remnants. No residual spinal canal stenosis. Mild foraminal stenosis. L5-S1: Prior laminectomies, partial facetectomies, and interbody fusion. Interbody spacers are present. Chronic left-sided pars defect, nonspecific and possibly postoperative. Arthrosis of the facet joint remnants. Foraminal/far lateral endplate osteophytes. Left-sided epidural scarring is present including around the proximal left S1 nerve root sleeve. No residual spinal canal stenosis. Mild foraminal stenosis. Bones/marrow: No lumbar compression fracture. Nosuspicious marrow signal abnormalities. Retroperitoneum: No retroperitoneal abnormalities are identified. IMPRESSION: 1. Status post posterior decompression from L3 through L5-S1 with posterior lumbar interbody fusion at L3-L4. No residual spinal canal stenosis is visualized from L3-L4 through L5-S1. Areas of epidural scarring are noted as detailed above. 2. Mild spinal canal and bilateral lateral recess stenosis and moderate to severe right foraminal stenosis at L2-L3. Signed: Gladis Parson MDReportVerified Date/Time: 03/02/2019 17:00:10 Reading Location: [facility] Radiology Reading Room [id number] 15:06:00 Test Item Value Reference Range Interpretation Comments POC-CREATININE 0.6 mg/dL 0.6-1.3 TESTED AT [facility] [place] [address] [facility] (test [address] code = 1859) [facility] [address] POC-EGFR (BLAINE) 101 mL/min/1.73M2 (test code = 1860) MR, SPINE, CERVICAL, WITHOUT IV [id number] 16:06:00FINAL REPORT INDICATION: Neck pain COMPARISON:October 24, 2015Ju2015 TECHNI QUE: MRI exam of the cervical spine WITHOUT intravenous contrast. FINDINGS:There is susceptibility artifact from interbody spacers, better demonstrated on cervical spine radiograph October 24, 2015, at the C5-6 and C6-7 levels. This artifact precludes visualization of the C5 and C6 and part of the C7 vertebral bodies. It also obscures the cervical cord at these levels. Of the visualized cervical vertebral column no degenerative marrow edema or suspicious marrow replacing lesion is demonstrated. Visualized part of the cervical cord is normal. Craniocervical junction unremarkable. C2-3: Bilateral mildfacet arthropathy. No disc bulge or herniation. No uncovertebral spurring. No foraminal narrowing and no spinal stenosis. C3-4: Normal. C4-5: Normal. C5-6: Not visualized because of susceptibility artifact. C6-7: Not visualized because of susceptibility artifact. C7-T1: Normal. IMPRESSION: C5-6 and C6-7 interbody spacers with susceptibility artifact obscuring these levels.No significant upper cervical degenerative change. Signed: Parish Koch Verified Date/Time: 11/02/2018 16:06:08 Reading Location: [facility] Diagnostic Imaging Reading Room [place] [address] MR, BRAIN, WITHOUT IV [id number] 13:53:00FINAL REPORT MR, BRAIN, WITHOUT IV CONTRAST INDICATION: persistent headaches TECHNIQUE: Multiplanar, multisequence MR imaging of the brain was obtained. COMPARISON: None FINDINGS:Brain parenchyma is normal in morphology. Midline structures are normally developed. No restricted diffusion to suggest recent ischemic insult. No abnormal susceptibility. Scattered T2/FLAIR hyperintensefoci within the periventricular and subcortical white matter are nonspecific, however, statisticallyrepresent chronic microvascular ischemic changes. No hydrocephalus. Orbits are within normal limits.No obstructive paranasal sinus disease. IMPRESSION: Unremarkable MRI of the brain. Signed: Bushra Rodríguez Verified Date/Time: 11/02/2018 13:53:48 Reading Location: [facility] Radiology Reading Room COMPREHENSIVE METABOLIC PANEL 2018-07-26 18:27:00 Test Item Value Reference Range Interpretation Comments TOTAL PROTEIN 7.2 gm/dL 6.0-8.5 (BEAKER) (test code = 770) ALBUMIN (BEAKER) 4.2 g/dL 3.5-5.0 (test code = 1145) ALKALINE PHOSPHATASE 116 U/L 30-115 H (BEAKER) (test code = 346) BILIRUBIN TOTAL 0.2 mg/dL 0.1-1.3 (BEAKER) (test code = 377) SODIUM (BEAKER) (test 143 meq/L 135-148 code = 381) POTASSIUM (BEAKER) 3.9 meq/L 3.5-5.5 (test code = 379) CHLORIDE (BEAKER) 107 meq/L 98-106 H (test code = 382) CO2 (BEAKER) (test 23 meq/L 20-31 code = 355) BLOOD UREA NITROGEN 13 mg/dL 10-26 (BEAKER) (test code = 354) CREATININE (BEAKER) 0.79 mg/dL 0.50-1.20 (test code = 358) GLUCOSE RANDOM 94 mg/dL 70-110 (BEAKER) (test code = 652) CALCIUM (BEAKER) 10.1 mg/dL 8.5-10.5 (test code = 697) AST (SGOT) (BEAKER) 29 U/L 5-40 (test code = 353) ALT (SGPT) (BEAKER) 34 U/L 6-50 (test code = 347) EGFR (BEAKER) (test 74 mL/min/1.73 ESTIMA LOLA GFR IS code = 1092) sq m NOT ACCURATE CREATININE CLEARANCE IN PREDICTING GLOMERULAR FILTRATION RATE . ESTIMATED GFR I S NOT APPLICABLE FOR DIALYSIS PATIEN TS. CBC W/PLT COUNT & AUTO [id number] 18:05:00 Test Item Value Reference Range Interpretation Comments WHITE BLOOD CELL COUNT 5.7 K/ L 4.0-10.0 (BEAKER) (test code = 775) RED BLOOD CELL COUNT 4.01 M/ L 4.00-5.00 (BEAKER) (test code = 761) HEMOGLOBIN (BEAKER) 12.4 GM/DL 12.0-15.5 (test code = 410) HEMATOCRIT (BEAKER) 38.8 % 36.0-46.0 (test code = 411) MEAN CORPUSCULAR VOLUME 96.8 fL 82.0-99.0 (BEAKER) (test code = 753) MEAN CORPUSCULAR 30.9 pg 27.0-33.0 HEMOGLOBIN (BEAKER) (test code = 751) MEAN CORPUSCULAR 32.0 GM/DL 32.0-36.0 HEMOGLOBIN CONC (BEAKER) (test code = 752) RED CELL DISTRIBUTION 14.6 % 12.0-15.0 WIDTH (BEAKER) (test code = 412) PLATELET COUNT (BEAKER) 230 K/CU MM 150-430 (test code = 756) MEAN PLATELET VOLUME 10.1 fL 6.0-11.5 MPV-Kierra roximately (BEAKER) (test code = 20% po sitive bias 754) due to method change. NUCLEATED RED BLOOD 0 /100 WBC 0-0 CELLS (BEAKER) (test code = 413) NEUTROPHILS RELATIVE 60 % PERCENT (BEAKER) (test code = 429) LYMPHOCYTES RELATIVE 30 % PERCENT (BEAKER) (test code = 430) MONOCYTES RELATIVE 8 % PERCENT (BEAKER) (test code = 431) EOSINOPHILS RELATIVE 1 % PERCENT (BEAKER) (test code = 432) BASOPHILS RELATIVE 1 % PERCENT (BEAKER) (test code = 437) NEUTROPHILS ABSOLUTE 3.42 K/ L 1.80-8.00 COUNT (BEAKER) (test code = 670) LYMPHOCYTES ABSOLUTE 1.72 K/ L 1.48-4.50 COUNT (BEAKER) (test code = 414) MONOCYTES ABSOLUTE 0.44 K/ L 0.00-1.30 COUNT (BEAKER) (test code = 415) EOSINOPHILS ABSOLUTE 0.08 K/ L 0.00-0.50 COUNT (BEAKER) (test code = 416) BASOPHILS ABSOLUTE 0.03 K/ L 0.00-0.20 COUNT (BEAKER) (test code = 417) IMMATURE 0 % 0-0 GRANULOCYTES-RELATIVE PERCENT (BEAKER) (test code = 2801) RAD, SPINE, LUMBAR, COMPLETE (MIN 4 VIEWS)2018-07-26 16:55:00Reason for exam:- >Back PainShould this be performed at the bedside?->NoFINAL REPORT LUMBAR SPINE SERIES History provided: Back pain Five lumbar type ve rtebra. Laminectomy defects at L3 and L4 with pedicle screws and interconnecting rods bridging theselevels. Interbody bone graft at L3-4 and L5-S1. Marked disc space narrowing with vacuum phenomenon at L2-3 indicative of chronic degenerative disc disease. No fracture or subluxation. IMPRESSION: Multilevel postop and degenerative changes. Signed: Sean Elliotteport Verified Date/Time: 07/26/2018 16:55:43 Reading Location: [facility] Diagnostic Imaging Reading Room [place] [address] 1.310.12 MR, BRAIN, WITHOUT IV [id number] 18:08:00FINAL REPORT MRI Brain without contrast Clinical History: Head trauma, headache, tingling sensations bilateral hands and feet Technique: MRI of the brain utilizing axial T2, FLAIR,GRE, DWI; sagittal and coronal T1-weighted images. Comparisons: None Findings: There is no evidence of acute infarct or hemorrhage. There are a few scattered nonspecific foci of FLAIR signal abnormality in the subcortical and periventricular white matter. FLAIR signal hyperintensity central deana is likely related to chronic microvascular ischemic disease. There is mild generalized parenchymal volume loss without hydrocephalus, midline shift, or apparent mass effect. There are no extra-axial fluid collections. The craniocervical junction is preserved. The major intracranial flow-voids appear patent.IMPRESSION: Overall age-appropriate appearing noncontrast MRI, without sequela of traumatic brain injury. Signed: Logan Poolort Verified Date/Time: 11/18/2017 18:08:58 Reading Location: [facility] Radiology Reading Room MR, EXTREMITY, LOWER, JOINT, WITHOUT IV CONTRAST, [id number] 13:20:00Reason for Exam:->R/O abductor tearFINAL REPORT MRI of the right hip without contrast Clinical History: Abductor tear Technique: Multiplanar and multisequence MR images of the right hip are obtained without contrastadministration. Comparison: No priors Discussion: Marrow signal is normal. There is no fracture, or malalignment. No avascular necrosis, or suspicious bony lesion. Minimal degenerative changes are noted at both hips, along with trace bilateral hip joint effusion. There is also degenerative change at the symphysis pubis. Lower lumbar spine hardware is partially imaged. There is mild soft tissue edema and trace fluid adjacent to the right greater trochanter, suggestive of trochanteric bursitis. The right gluteus minimus and medius tendons are unremarkable. The iliopsoas tendons are also intact. Thereis mild left, and minimal right and string tendinopathy, without evidence of tear. Pelvic musculature demonstrates normal bulk, and signal. There is no mass or lymphadenopathy. No abnormal fluid collection. Within the pelvis, bladder is unremarkable. Uterus is not identified. No adnexal mass or ascites. IMPRESSION: Mild right greater trochanteric bursitis. Mild symphysis pubis degenerative change. Minimal bilateral hip DJD. Mild left and minimal right hamstring tendinopathy. Signed: Justo Nina MDReport Verified Date/Time: 05/14/2017 13:20:21 Reading Location: [facility] [id number] Ortho Consult Reading Room [id number] 21:43:00 Test Item Value Reference Range Interpretation Comments K-time Rapid (test code = K-time 1.4 min 0.6-2.3 Rapid) [id number] 21:43:00 Test Item Value Reference Range Interpretation Comments Estimated % Lysis Rapid 4.6 See_Comment [Au tomated message] The (test code = Estimated syste m which generated % Lysis Rapid) this result t ransmitted reference range : <=7.5. The reference r morales was not used to int erpret this result as normal/abnormal . [facility] H[id number] 21:43:00 Test Item Value Reference Range Interpretation Comments G-value Rapid (test code = G-value 7.6 5.0-11.6 Rapid) [facility] Hos[id number] 21:43:00 Test Item Value Reference Range Interpretation Comments Max Amplitude Rapid (test code = Max 61 mm 52-71 Amplitude Rapid) [facility] H[id number] 21:43:00 Test Item Value Reference Range Interpretation Comments Angle Rapid (test code = Angle 70 degrees 64-80 Rapid) [facility] HospitalMglezxfVVYMXGGQQZ9416-84-00 21:43:00 Test Item Value Reference Range Interpretation Comments R-time Rapid (test code = R-time 1.2 min 0.4-0.7 Rapid) [facility] H[id number] 21:43:00 Test Item Value Reference Range Interpretation Comments Split Point Rapid (test code = Split 0.8 min Point Rapid) [facility] HospitalLybgexkERBVEHQTPP3755-74-05 21:43:00 Test Item Value Reference Range Interpretation Comments ACT (TEG) Rapid (test code = ACT (TEG) 160 s 86-118 Rapid) [facility] HospitalZqvmbsnKGRDCIWRAJ2148-22-33 21:43:00 Test Item Value Reference Range Interpretation Comments Fibrinogen Lvl (test code = Fibrinogen 284 230-510 Lvl) [facility] HospitalKifapoqUTZNNYZNYY5050-06-97 21:43:00 Test Item Value Reference Range Interpretation Comments PTT (test code = PTT) 25.2 s 22.9-35.8 [facility] Hospit[id number] 21:43:00 Test Item Value Reference Range Interpretation Comments INR (test code = INR) 0.94 0.85-1.17 [facility] Hospit[id number] 21:43:00 Test Item Value Reference Range Interpretation Comments PT (test code = PT) 12.8 s 12.0-14.7 [facility] HospitalLmwjrfdGNKGVGRCQS9800-08-47 21:43:00 Test Item Value Reference Range Interpretation Comments MPV (test code = MPV) 8.6 7.4-10.4 [facility] HospitalYrcspcvFUPIRZBBKM7196-96-48 21:43:00 Test Item Value Reference Range Interpretation Comments Platelet (test code = Platelet) 204 133-450 [facility] Hospit[id number] 21:43:00 Test Item Value Reference Range Interpretation Comments RDW (test code = RDW) 13.9 11.5-14.5 [facility] HospitalLtzhqzrDKQHLIANHH2889-08-95 21:43:00 Test Item Value Reference Range Interpretation Comments MCHC (test code = MCHC) 32.9 32.0-36.0 [facility] HospitalWroixopGWUHHEOSRR0383-37-02 21:43:00 Test Item Value Reference Range Interpretation Comments MCH (test code = MCH) 31.9 pg 27.0-31.0 [facility] HospitalOfrgnwlSSZQFLKTMK0731-02-83 21:43:00 Test Item Value Reference Range Interpretation Comments WBC (test code = WBC) 9.0 3.7-10.4 [facility] HospitalQlyiaelXBJBHDBISP5508-79-87 21:43:00 Test Item Value Reference Range Interpretation Comments MCV (test code = MCV) 96.8 80.0-98.0 [facility] HospitalDmkayybUNMISINUAV8559-18-76 21:43:00 Test Item Value Reference Range Interpretation Comments Hct (test code = Hct) 38.0 36.0-48.0 [facility] HospitalUhucwbwIZDSNRNIOQ7608-40-77 21:43:00 Test Item Value Reference Range Interpretation Comments Hgb (test code = Hgb) 12.5 12.0-16.0 [facility] HospitalAeidyjcEVNORBIZNN7016-24-23 21:43:00 Test Item Value Reference Range Interpretation Comments RBC (test code = RBC) 3.92 4.20-5.40 [facility] HospitalBmdmiefBFISFSENSK3191-79-10 21:43:00 Test Item Value Reference Range Interpretation Comments Monocytes # (test code 0.1 See_Comment [Aut omated message] The = Monocytes #) system which generated this result tra nsmitted reference range : <=0.8. The reference r morales was not used to int erpret this result as normal/abnormal . [facility] Hospit[id number] 21:43:00 Test Item Value Reference Range Interpretation Comments Anisocyte (test code = 1+ *ABN*(10/04/16 Anisocyte) 4:43 PM) [facility] HospitalJuuklmgVQFCHERZYQ1752-86-82 21:43:00 Test Item Value Reference Range Interpretation Comments Lymphocytes # (test code = Lymphocytes 0.2 1.0-5.5 #) [facility] HospitalMafkwpbEYUHRQLYLJ9676-31-12 21:43:00 Test Item Value Reference Range Interpretation Comments Segs-Bands # (test code = Segs-Bands #) 8.7 1.5-8.1 [facility] HospitalVzscnjqECKFJYMIOR8304-52-64 21:43:00 Test Item Value Reference Range Interpretation Comments Basophils (test code = 0.1 See_Comment [Aut omated message] The Basophils) system which ge nerated this result tra nsmitted reference range : <=1.0. The reference r morales was not used to int erpret this result as normal/abnormal . [facility] HospitalXgcscsjTZEFSWIRTR7575-12-96 21:43:00 Test Item Value Reference Range Interpretation Comments Lymphocytes (test code = Lymphocytes) 2.0 20.0-40.0 [facility] HospitalFngqamwQJLHHUGDDG6232-52-84 21:43:00 Test Item Value Reference Range Interpretation Comments Monocytes (test code = Monocytes) 1.4 2.0-12.0 [facility] HospitalFswxetgSUVOGYQCJE4052-97-65 21:43:00 Test Item Value Reference Range Interpretation Comments Segs (test code = Segs) 96.5 45.0-75.0 [facility] HospitalBbschnfQFTHMNTVAX1051-91-95 21:43:00 Test Item Value Reference Range Interpretation Comments Plt Morph (test code = Normal (10/04/16 4:43 Plt Morph) PM) [facility] HospitalTkykzbbILSJIAAGFE8291-05-56 21:43:00 Test Item Value Reference Range Interpretation Comments RBC Morph (test code = Normal (10/04/16 4:43 RBC Morph) PM) [facility] HospitalQptuwnnDAZZKORFRI0214-13-98 19:50:00 Test Item Value Reference Range Interpretation Comments Estimated % Lysis Rapid 2.0 See_Comment [Au tomated message] The (test code = Estimated syste m which generated % Lysis Rapid) this result t ransmitted reference range : <=7.5. The reference r morales was not used to int erpret this result as normal/abnormal . [facility] HospitalJfquihnDRXIXPYOUI1575-65-89 19:50:00 Test Item Value Reference Range Interpretation Comments G-value Rapid (test code = G-value 8.1 5.0-11.6 Rapid) [facility] HospitalXjfgtyvTPSKFUYGSK6567-11-81 19:50:00 Test Item Value Reference Range Interpretation Comments Max Amplitude Rapid (test code = Max 62 mm 52-71 Amplitude Rapid) [facility] HospitalUsxvtfjYSNOCRVWNR1756-51-06 19:50:00 Test Item Value Reference Range Interpretation Comments R-time Rapid (test code = R-time 0.9 min 0.4-0.7 Rapid) [facility] HospitalLiijnpqNUUVFAJNHQ7991-25-50 19:50:00 Test Item Value Reference Range Interpretation Comments Split Point Rapid (test code = Split 0.7 min Point Rapid) [facility] HospitalDsfstipFZYWXFDROR3820-50-85 19:50:00 Test Item Value Reference Range Interpretation Comments ACT (TEG) Rapid (test code = ACT (TEG) 136 s 86-118 Rapid) [facility] HospitalUjzyxmlPVEPYRKAPU2965-44-77 19:50:00 Test Item Value Reference Range Interpretation Comments Angle Rapid (test code = Angle 67 degrees 64-80 Rapid) [facility] HospitalSskebukXIELEYMYOD4785-47-47 19:50:00 Test Item Value Reference Range Interpretation Comments K-time Rapid (test code = K-time 1.8 min 0.6-2.3 Rapid) [facility] HospitalZzzckjjMFNTWSZXOJ3275-41-55 19:50:00 Test Item Value Reference Range Interpretation Comments Fibrinogen Lvl (test code = Fibrinogen 279 230-510 Lvl) [facility] HospitalMturwwgXUFSIYCXOD1129-70-10 19:50:00 Test Item Value Reference Range Interpretation Comments PTT (test code = PTT) 24.7 s 22.9-35.8 [facility] HospitalHepvffnTADCPLTTAF1746-45-78 19:50:00 Test Item Value Reference Range Interpretation Comments INR (test code = INR) 0.92 0.85-1.17 [facility] HospitalVhbnpjgAARZPFEYNO0165-47-97 19:50:00 Test Item Value Reference Range Interpretation Comments PT (test code = PT) 12.6 s 12.0-14.7 [facility] HospitalJbaeupjQNWZCHAROT9931-33-77 19:29:00 Test Item Value Reference Range Interpretation Comments RBC (test code = RBC) 4.24 4.20-5.40 [facility] HospitalIctihnoCCIVTLVEPE6678-92-64 19:29:00 Test Item Value Reference Range Interpretation Comments Hct (test code = Hct) 40.8 36.0-48.0 [facility] HospitalYnzawgiSCKNYQLETA8227-16-66 19:29:00 Test Item Value Reference Range Interpretation Comments Hgb (test code = Hgb) 13.4 12.0-16.0 [facility] HospitalLqgzfzuPJQJMNZMEB9876-02-98 19:29:00 Test Item Value Reference Range Interpretation Comments WBC (test code = WBC) 12.2 3.7-10.4 [facility] HospitalBonunohPMDKEYESHZ8075-85-37 19:29:00 Test Item Value Reference Range Interpretation Comments MPV (test code = MPV) 8.7 7.4-10.4 [facility] HospitalElhcfdgNRXJCNSZAM0612-94-86 19:29:00 Test Item Value Reference Range Interpretation Comments Platelet (test code = Platelet) 216 133-450 [facility] HospitalWzffkkrDLVRLWIJIT8180-40-43 19:29:00 Test Item Value Reference Range Interpretation Comments MCH (test code = MCH) 31.7 pg 27.0-31.0 [facility] HospitalSuxxqagKTNFVMUESJ2761-23-30 19:29:00 Test Item Value Reference Range Interpretation Comments MCV (test code = MCV) 96.2 80.0-98.0 [facility] HospitalGdcaqkjRAVWKNROIL1958-29-09 19:29:00 Test Item Value Reference Range Interpretation Comments MCHC (test code = MCHC) 33.0 32.0-36.0 [facility] HospitalHljrgylMISUEEGMEL4221-39-90 19:29:00 Test Item Value Reference Range Interpretation Comments RDW (test code = RDW) 13.8 11.5-14.5 [facility] HospitalSrxhjyhXWNDPIBCJK0995-50-79 19:29:00 Test Item Value Reference Range Interpretation Comments Lymphocytes (test code = Lymphocytes) 2.2 20.0-40.0 [facility] HospitalSrpcjqsFCELOCNXFN1702-14-72 19:29:00 Test Item Value Reference Range Interpretation Comments Segs (test code = Segs) 94.4 45.0-75.0 [facility] HospitalEivhjwfWRBTVLEPOS2351-22-49 19:29:00 Test Item Value Reference Range Interpretation Comments Monocytes (test code = Monocytes) 3.0 2.0-12.0 [facility] HospitalCyjyoxxFPYTSUHHEQ1845-69-98 19:29:00 Test Item Value Reference Range Interpretation Comments Basophils (test code = 0.3 See_Comment [Aut omated message] The Basophils) system which ge nerated this result tra nsmitted reference range : <=1.0. The reference r morales was not used to int erpret this result as normal/abnormal . [facility] HospitalKysaepbSZGRAWYNEX9497-20-93 19:29:00 Test Item Value Reference Range Interpretation Comments Monocytes # (test code 0.4 See_Comment [Aut omated message] The = Monocytes #) system which generated this result tra nsmitted reference range : <=0.8. The reference r morales was not used to int erpret this result as normal/abnormal . [facility] HospitalWoybuneJCSRMNKXBX4567-13-39 19:29:00 Test Item Value Reference Range Interpretation Comments Lymphocytes # (test code = Lymphocytes 0.3 1.0-5.5 #) [facility] HospitalJrwunmsUWGPVGKQED4206-86-57 19:29:00 Test Item Value Reference Range Interpretation Comments Eosinophils (test code = 0.1 See_Comment [A utomated message] The Eosinophils) system which ge nerated this result tra nsmitted reference range : <=4.0. The reference r morales was not used to int erpret this result as normal/abnormal . [facility] HospitalYtkraopXBMMLPUMAG5458-09-37 19:29:00 Test Item Value Reference Range Interpretation Comments Segs-Bands # (test code = Segs-Bands #) 11.5 1.5-8.1 [facility]2014-10-23 20:40:00 Test Item Value Reference Range Interpretation Comments A/G Ratio (test code = A/G Ratio) 1.4 0.7-1.6 [facility]2014-10-23 20:40:00 Test Item Value Reference Range Interpretation Comments AGAP (test code = AGAP) 10.0 10.0-20.0 [facility]2014-10-23 20:40:00 Test Item Value Reference Range Interpretation Comments Globulin (test code = Globulin) 3.0 2.0-4.0 [facility]2014-10-23 20:40:00 Test Item Value Reference Range Interpretation Comments B/C Ratio (test code = B/C Ratio) 24 6-25 [facility]2014-10-23 20:40:00 Test Item Value Reference Range Interpretation Comments eGFR (test code = eGFR) 63 [facility]2014-10-23 20:40:00 Test Item Value Reference Range Interpretation Comments Bili Total (test code = Bili Total) 0.1 0.2-1.3 [facility]2014-10-23 20:40:00 Test Item Value Reference Range Interpretation Comments Calcium Lvl (test code = Calcium Lvl) 8.9 8.5-10.5 [facility]2014-10-23 20:40:00 Test Item Value Reference Range Interpretation Comments CO2 (test code = CO2) 25 24-32 [facility]2014-10-23 20:40:00 Test Item Value Reference Range Interpretation Comments Albumin Lvl (test code = Albumin Lvl) 4.1 3.5-5.0 [facility]2014-10-23 20:40:00 Test Item Value Reference Range Interpretation Comments ALT (test code = ALT) 21 See_Comment [Auto mated message] The system which ge nerated this result transmit lola reference range : <=65. The reference range was not used to interpr et this result as masoud l/abnormal. [facility]2014-10-23 20:40:00 Test Item Value Reference Range Interpretation Comments Total Protein (test code = Total 7.1 6.4-8.4 Protein) [facility]2014-10-23 20:40:00 Test Item Value Reference Range Interpretation Comments Alk Phos (test code = Alk Phos) 132 39-136 [facility]2014-10-23 20:40:00 Test Item Value Reference Range Interpretation Comments AST (test code = AST) 13 See_Comment [Auto mated message] The system which ge nerated this result transmit lola reference range : <=37. The reference range was not used to interpr et this result as masoud l/abnormal. [facility]2014-10-23 20:40:00 Test Item Value Reference Range Interpretation Comments Sodium Lvl (test code = Sodium Lvl) 141 135-145 [facility]2014-10-23 20:40:00 Test Item Value Reference Range Interpretation Comments BUN (test code = BUN) 24 7-22 [facility]2014-10-23 20:40:00 Test Item Value Reference Range Interpretation Comments Creatinine Lvl (test code = Creatinine 1.0 0.5-1.4 Lvl) [facility]2014-10-23 20:40:00 Test Item Value Reference Range Interpretation Comments Potassium Lvl (test code = Potassium 4.0 3.5-5.1 Lvl) [facility]2014-10-23 20:40:00 Test Item Value Reference Range Interpretation Comments Chloride Lvl (test code = Chloride Lvl) 110 95-109 [facility]2014-10-23 20:40:00 Test Item Value Reference Range Interpretation Comments Glucose Lvl (test code = Glucose Lvl) 91 70-99 [facility]osFAKBEYQDOP1601[facility] 20:40:00 Test Item Value Reference Range Interpretation Comments Eosinophils # (test code 0.1 See_Comment [A utomated message] The = Eosinophils #) system whic h generated this result tra nsmitted reference range : <=0.5. The reference r morales was not used to int erpret this result as normal/abnormal . [id number] 20:40:00 Test Item Value Reference Range Interpretation Comments Basophils # (test code 0.0 See_Comment [Aut omated message] The = Basophils #) system which generated this result tra nsmitted reference range : <=0.2. The reference r morales was not used to int erpret this result as normal/abnormal . [facility] Ho[id number] 20:40:00 Test Item Value Reference Range Interpretation Comments Basophils (test code = 0.1 See_Comment [Aut omated message] The Basophils) system which ge nerated this result tra nsmitted reference range : <=1.0. The reference r morales was not used to int erpret this result as normal/abnormal . [facility] HospitalCbzipkbYCLXDPGELY8882-38-10 20:40:00 Test Item Value Reference Range Interpretation Comments Lymphocytes # (test code = Lymphocytes 2.6 1.0-5.5 #) [facility] Hospit[id number] 20:40:00 Test Item Value Reference Range Interpretation Comments Monocytes # (test code 0.6 See_Comment [Aut omated message] The = Monocytes #) system which generated this result tra nsmitted reference range : <=0.8. The reference r morales was not used to int erpret this result as normal/abnormal . [facility] HospitalLaqgmesKKZUQRMFVU4309-57-76 20:40:00 Test Item Value Reference Range Interpretation Comments Segs-Bands # (test code = Segs-Bands #) 4.7 1.5-8.1 [facility] Hos[id number] 20:40:00 Test Item Value Reference Range Interpretation Comments Segs (test code = Segs) 58.3 45.0-75.0 [facility] Hospit[id number] 20:40:00 Test Item Value Reference Range Interpretation Comments Lymphocytes (test code = Lymphocytes) 32.6 20.0-40.0 [facility] HospitalSastyohCJRKLPUSAF6987-90-90 20:40:00 Test Item Value Reference Range Interpretation Comments Eosinophils (test code = 1.7 See_Comment [A utomated message] The Eosinophils) system which ge nerated this result tra nsmitted reference range : <=4.0. The reference r morales was not used to int erpret this result as normal/abnormal . [facility] HospitalKquolurQTLWZKEIYE8118-48-35 20:40:00 Test Item Value Reference Range Interpretation Comments Monocytes (test code = Monocytes) 7.3 2.0-12.0 [facility] HospitalRhqrtriYXNDUIXQKC2950-40-79 20:40:00 Test Item Value Reference Range Interpretation Comments MPV (test code = MPV) 8.6 7.4-10.4 [facility] HospitalNaxfhnoWVGZPZWUVO5369-06-40 20:40:00 Test Item Value Reference Range Interpretation Comments WBC (test code = WBC) 8.0 3.7-10.4 [facility] HospitalEwdwdnkUHKENNPPBD2262-65-19 20:40:00 Test Item Value Reference Range Interpretation Comments MCH (test code = MCH) 29.1 pg 27.0-31.0 [facility] HospitalOxtamivSAFXLIGKMY8767-46-43 20:40:00 Test Item Value Reference Range Interpretation Comments RDW (test code = RDW) 18.5 11.5-14.5 [facility] HospitalLvbmwckKIAFYUBBVP3656-79-82 20:40:00 Test Item Value Reference Range Interpretation Comments MCHC (test code = MCHC) 32.8 32.0-36.0 [facility] HospitalIxltljjMZRLTZXBBC5315-12-07 20:40:00 Test Item Value Reference Range Interpretation Comments Platelet (test code = Platelet) 231 133-450 [facility] HospitalQzmovsaRYCERLDZWB8620-07-00 20:40:00 Test Item Value Reference Range Interpretation Comments MCV (test code = MCV) 88.9 80.0-98.0 [facility] HospitalPyuorgpOLMETWXSUO3726-67-26 20:40:00 Test Item Value Reference Range Interpretation Comments RBC (test code = RBC) 4.14 4.20-5.40 [facility] HospitalZwkyfygOPCGMZRNVR6054-22-84 20:40:00 Test Item Value Reference Range Interpretation Comments Hct (test code = Hct) 36.8 36.0-48.0 [facility] HospitalGhcwqfsYYGVZNAOHX3496-01-72 20:40:00 Test Item Value Reference Range Interpretation Comments Hgb (test code = Hgb) 12.1 12.0-16.0 [facility] HospitalKerysqiLLGPYTWYOC0120-03-05 20:40:00 Test Item Value Reference Range Interpretation Comments PTT (test code = PTT) 31.3 s 22.9-35.8 [facility] Ho[id number] 20:40:00 Test Item Value Reference Range Interpretation Comments INR (test code = INR) 0.85 0.85-1.17 [facility] Hospit[id number] 20:40:00 Test Item Value Reference Range Interpretation Comments PT (test code = PT) 11.6 s 12.0-14.7 [facility] AND [id number] 20:40:00 Test Item Value Reference Range Interpretation Comments UA Urobilinogen (test code = UA <=1.0 mg/dL 0.1-1.0 Urobilinogen) [facility] AND [id number] 20:40:00 Test Item Value Reference Range Interpretation Comments UA Mucus (test code = UA Mucus) Few /LPF [facility] [id number] 20:40:00 Test Item Value Reference Range Interpretation Comments UA Leuk Est (test code Small *ABN*(12/28/13 = UA Leuk Est) 3:40 PM) [facility] [id number] 20:40:00 Test Item Value Reference Range Interpretation Comments UA Nitrite (test code Negative (12/28/13 3:40 = UA Nitrite) PM) [facility] [id number] 20:40:00 Test Item Value Reference Range Interpretation Comments UA WBC (test code = 7 See_Comment [Automa lola message] The UA WBC) system which ge nerated this result transmit lola reference range : <=5. The reference range was not used to interpr et this result as masoud l/abnormal. [facility] AND [id number] 20:40:00 Test Item Value Reference Range Interpretation Comments UA Sq Epi (test code = UA Sq Epi) Many /LPF [facility] [id number] 20:40:00 Test Item Value Reference Range Interpretation Comments UA RBC (test code = 3 See_Comment [Automa lola message] The UA RBC) system which ge nerated this result transmit lola reference range : <=2. The reference range was not used to interpr et this result as masoud l/abnormal. [facility] AND [id number] 20:40:00 Test Item Value Reference Range Interpretation Comments UA pH (test code = UA pH) 5.5 5.0-8.0 [facility] AND [id number] 20:40:00 Test Item Value Reference Range Interpretation Comments UA Spec Grav (test code = UA Spec Grav) 1.017 [facility] AND [id number] 20:40:00 Test Item Value Reference Range Interpretation Comments UA Glucose (test code = UA Negative mg/dL Glucose) [facility] AND [id number] 20:40:00 Test Item Value Reference Range Interpretation Comments UA Protein (test code = UA Negative mg/dL Protein) [facility] AND [id number] 20:40:00 Test Item Value Reference Range Interpretation Comments UA Blood (test code = Negative (12/28/13 3:40 UA Blood) PM) [facility] AND [id number] 20:40:00 Test Item Value Reference Range Interpretation Comments UA Bili (test code = Negative *NA*(12/28/13 UA Bili) 3:40 PM) [facility] AND [id number] 20:40:00 Test Item Value Reference Range Interpretation Comments UA Ketones (test code = UA Negative mg/dL Ketones) [facility] AND [id number] 20:40:00 Test Item Value Reference Range Interpretation Comments UA Color (test code = Yellow *NA*(12/28/13 UA Color) 3:40 PM) [facility] AND [id number] 20:40:00 Test Item Value Reference Range Interpretation Comments UA Turbidity (test code Slight *ABN*(12/28/13 = UA Turbidity) 3:40 PM) [facility]
[2021-11-28] MEDS ORDERED: HYDROCODONE/APAP 5/325 MG TAB ONE (22:43)
[2021-11-28] MEDS ORDERED: DIAZEPAM 5 MG TABLET ONE (22:43)
--- NOTE | 2021-11-28 23:45 | ER ---
Nurse's Notes [facility] Name: Eva Estrella Age: 66 yrs Sex: Female : 1955 Arrival Date: 11/28/2021 Time: 21:56 Bed 8 Private MD: Diagnosis: Low back pain-chronic Presentation: 11/28 22:16 Chief complaint: Patient states: Chronic lower back pain - left leg pain. Coronavirus ld1 screen: At this time, the client does not indicate any symptoms associated with coronavirus-19. Ebola Screen: No symptoms or risks identified at this time. Initial Sepsis Screen: Does the patient meet any 2 criteria? No. Patient's initial sepsis screen is negative. Does the patient have a suspected source of infection? No. Patient's initial sepsis screen is negative. Risk Assessment: Do you want to hurt yourself or someone else? Patient reports no desire to harm self or others. Onset of symptoms was November 28, 2021. 22:16 Method Of Arrival: Wheelchair ld1 22:16 Acuity: SAMMY 3 ld1 Triage Assessment: 22:20 General: Appears in no apparent distress. uncomfortable, Behavior is cooperative, ld1 anxious, fussy. Pain: Complains of pain in back Pain does not radiate. Pain currently is 10 out of 10 on a pain scale. EENT: No signs and/or symptoms were reported regarding the EENT system. Neuro: Level of Consciousness is awake, alert, obeys commands, Oriented to person, place, time, situation. Cardiovascular: Capillary refill < 3 seconds Patient's skin is warm and dry. Respiratory: Airway is patent Respiratory effort is even, unlabored. GI: Abdomen is flat, non-distended. : No signs and/or symptoms were reported regarding the genitourinary system. Derm: No signs and/or symptoms reported regarding the dermatologic system. Musculoskeletal: Reports pain in back. Historical: - Allergies: 22:18 tramadol; ld1 22:18 GABAPENTIN; ld1 22:18 Lyrica; ld1 22:18 Prednisone; ld1 - PMHx: 22:18 Chronic back pain; ld1 22:20 pain management; ld1 - PSHx: 22:18 Back surgery x 4; ld1 - Immunization history:: Adult Immunizations up to date, Client reports receiving the 2nd dose of the Covid vaccine. - Social history:: Smoking status: Patient denies any tobacco usage or history of. Patient/guardian denies using alcohol. Screenin:49 Abuse screen: Denies threats or abuse. Nutritional screening: No deficits noted. kl Tuberculosis screening: No symptoms or risk factors identified. Fall Risk No fall in past 12 months (0 pts). Secondary diagnosis (15 points) impaired mobility, No IV (0 pts). Ambulatory Aid- None/Bed Rest/Nurse Assist (0 pts). Gait- Impaired (20 pts.). Mental Status- Oriented to own ability (0 pts). Total Bethea Fall Scale indicates Low Risk Score (25-44 pts). Side Rails Up X 2 Placed close to Nursing Station Frequent Obs/Assesments occuring As available Patient and Family Educated on Fall Prevention Program and strategies. Assessment: 22:45 General: Appears distressed, uncomfortable, Behavior is anxious, crying. Pain: Complains of pain in back feet reports neuropathy. 22:47 Neuro: Level of Consciousness is awake, alert, obeys commands. Cardiovascular: No kl deficits noted. Respiratory: No deficits noted. GI: No deficits noted. No signs and/or symptoms were reported involving the gastrointestinal system. : No deficits noted. No signs and/or symptoms were reported regarding the genitourinary system. EENT: No deficits noted. No signs and/or symptoms were reported regarding the EENT system. Derm: No deficits noted. No signs and/or symptoms reported regarding the dermatologic system. Musculoskeletal: Reports has nerve stimulater in her back that she is trying to get someone to remove reports leads are intertwined with her nerves. Vital Signs: 22:16 BP 128 / 90; Pulse 87; Resp 18; Temp 97.9(TE); Pulse Ox 100% on R/A; Weight 58.06 kg; ld1 Height 5 ft. 3 in. (160.02 cm); Pain 10/10; 11/29 00:12 Pulse 78; Pulse Ox 99% ; Pain 5/10; kl 11/28 22:16 Body Mass Index 22.67 (58.06 kg, 160.02 cm) ld1 ED Course: 11/28 21:56 Patient arrived in ED. ag3 22:05 [facility]C [facility] kb 22:05 Rob Peterson DO is Attending Physician. kb 22:18 Triage completed. ld1 22:20 Arm band placed on right wrist. ld1 11/29 00:13 Patient has correct armband on for positive identification. kl 00:13 No provider procedures requiring assistance completed. Patient did not have IV access kl during this emergency room visit. Administered Medications: 11/28 22:45 Drug: HYDROcodone-acetaminophen 5 mg-325 mg 1 tabs Route: PO; kl 23:45 Follow up: Response: Marked relief of symptoms kl 23:45 Follow up: Response: Marked relief of symptoms kl 22:45 Drug: Valium (diazepam) 5 mg Route: PO; kl 11/29 00:12 Not Given (Patient Refused): Duragesic (fentaNYL) Patch (25 mcg/hr) 1 patches kl Transdermal once Medication: 00:13 VIS not applicable for this client. kl Outcome: 11/28 23:45 Discharge ordered by MD. kb 11/29 00:13 Discharged to home via wheelchair, with family. kl Condition: improved Discharge instructions given to family, Instructed on discharge instructions, follow up and referral plans. Demonstrated understanding of instructions, follow-up care. 00:14 Patient left the ED. Signatures: Mary Gann, CHIEF DIVERSITY OFFICER-C CHIEF DIVERSITY OFFICER-Ckb Shreya Nick RN RN Jeni Trejo 3 Moni Chairez, KEI RN ld1 Corrections: (The following items were deleted from the chart) 11/28 22:20 22:18 Allergies: No Known Allergies; ld1 ld1 22:20 22:18 PMHx: Back surgery x 4; ld1 ld1
--- NOTE | 2021-11-28 23:45 | EDPHYS ---
Physician Documentation [facility] Name: Eva Estrella Age: 66 yrs Sex: Female : 1955 Arrival Date: 11/28/2021 Time: 21:56 Bed 8 Private MD: ED Physician Rob Peterson HPI: 11/28 23:53 This 66 yrs old Unknown Female presents to ER via Wheelchair with complaints of Low kb Back Pain. 23:53 The patient presents with pain that is chronic. The symptoms are located in the low kb back. The pain radiates to the right leg and left leg. The problem was sustained from a chronic condition. Modifying factors: The patient symptoms are alleviated by nothing, the patient symptoms are aggravated by any movement. Associated signs and symptoms: The patient has no apparent associated signs or symptoms. Severity of symptoms: At their worst the symptoms were moderate, in the emergency department the symptoms are unchanged. The patient has experienced similar episodes in the past, chronically. The patient has been recently seen by a physician:. Pt reports she has a spinal stimulator that quit working 6 months ago and the coils are intertwined with nerves. States she has been looking for a neurosurgeon to take it out, but has been unsuccessful thus far. Came in today because pain has been increased today. Historical: - Allergies: 22:18 tramadol; ld1 22:18 GABAPENTIN; ld1 22:18 Lyrica; ld1 22:18 Prednisone; ld1 - PMHx: 22:18 Chronic back pain; ld1 22:20 pain management; ld1 - PSHx: 22:18 Back surgery x 4; ld1 - Immunization history:: Adult Immunizations up to date, Client reports receiving the 2nd dose of the Covid vaccine. - Social history:: Smoking status: Patient denies any tobacco usage or history of. Patient/guardian denies using alcohol. ROS: 23:51 Constitutional: Negative for fever, chills, and weight loss. kb 23:51 Back: Positive for pain at rest, pain with movement, of the low back area. 23:51 All other systems are negative. Exam: 23:51 Constitutional: This is a well developed, well nourished patient who is awake, alert, kb and in no acute distress. Head/Face: Normocephalic, atraumatic. ENT: Moist Mucous membranes Cardiovascular: Regular rate and rhythm with a normal S1 and S2. No gallops, murmurs, or rubs. No pulse deficits. Respiratory: Respirations even and unlabored. No increased work of breathing. Talking in full sentences Skin: Warm, dry with normal turgor. Normal color. Neuro: Awake and alert, GCS 15, oriented to person, place, time, and situation. Moves all extremities. Normal gait. Psych: Awake, alert, with orientation to person, place and time. Behavior, mood, and affect are within normal limits. 23:51 Musculoskeletal/extremity: Extremities: grossly normal except: noted in the low back area: pain, ROM: intact in all extremities, Circulation is intact in all extremities. Sensation intact. Weight bearing: able to fully bear weight. Vital Signs: 22:16 BP 128 / 90; Pulse 87; Resp 18; Temp 97.9(TE); Pulse Ox 100% on R/A; Weight 58.06 kg; ld1 Height 5 ft. 3 in. (160.02 cm); Pain 10; 11/29 00:12 Pulse 78; Pulse Ox 99% ; Pain 5/10; kl 11/28 22:16 Body Mass Index 22.67 (58.06 kg, 160.02 cm) ld1 MDM: 11/28 22:18 Patient medically screened. kb 23:48 Data reviewed: vital signs, nurses notes. Data interpreted: Pulse oximetry: on room air kb is 100 %. Interpretation: normal. 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 23:51 ED course: Pt refuses Fentanyl patch, states she has tried that and it only works for kb 2-3 days. Will follow up with pain management. Ambulates out of ED via steady gait. Administered Medications: 22:45 Drug: HYDROcodone-acetaminophen 5 mg-325 mg 1 tabs Route: PO; kl 23:45 Follow up: Response: Marked relief of symptoms kl 23:45 Follow up: Response: Marked relief of symptoms kl :45 Drug: Valium (diazepam) 5 mg Route: PO; kl 11/29 00:12 Not Given (Patient Refused): Duragesic (fentaNYL) Patch (25 mcg/hr) 1 patches kl Transdermal once Disposition: 08:22 Co-signature as Attending Physician, Rob Peterson DO I was immediately available onsite ms3 in the emergency department for consultation in the care of the patient. Disposition Summary: 11/28/21 23:45 Discharge Ordered Location: Home kb Condition: Stable kb Diagnosis - Low back pain - chronic kb Followup: kb - With: Emergency Department - When: As needed - Reason: Worsening of condition Followup: kb - With: Private Physician - When: 2 - 3 days - Reason: Recheck today's complaints, Continuance of care, Re-evaluation by your physician Discharge Instructions: - Discharge Summary Sheet kb - Chronic Back Pain, [id number]-jb-[id number] kb Forms: - Medication Reconciliation Form kb - Thank You Letter kb - Antibiotic Education kb - Prescription Opioid Use kb Signatures: Mary Gann FNP-C FNP-Shreya Lambert RN Rob Burris DO DO ms3 Moni Chairez RN RN ld1 Corrections: (The following items were deleted from the chart) 11/28 22:20 22:18 Allergies: No Known Allergies; ld1 ld1 22:20 22:18 PMHx: Back surgery x 4; ld1 ld1
[2021-11-30 16:38] VITALS: BP 128/90; TEMP 97.9
[2021-11-30 17:14] VITALS: O2SAT 99
== END 2021-11-29 00:14 | disposition home or self-care (01) ==
LOC: ER 21:54
DX: M54.50 Low back pain, unspecified (principal); Z88.5 Allergy status to narcotic agent; Z88.8 Allergy status to other drugs, medicaments and biological substances
CPT/HCPCS: 99283

== ENCOUNTER 2022-10-24 03:30 | Emergency (ER) | payer OTHER ==
--- OUTSIDE RECORDS SUMMARY | 2022-10-24 03:57 | XMS REPORT | Continuity of Care Document ---
:1955 Author Organization [facility] t Address [address] [facility] [place] [address] Care Team Providers Name Role Phone Michael Albarran MD Primary Care Physician LATISHA UP Attending Clinician Unavailable Jose Hernandez Attending Clinician Michael Albarran MD Attending Clinician Mason Hernandez MD Attending Clinician MASON HERNANDEZ Attending Clinician Unavailable MASON HERNANDEZ Attending Clinician Unavailable Apryl Brizuela CMA Attending Clinician Unavailable Yumiko Laboy NP Attending Clinician [phone] Rosmery Nixon MA Attending Clinician Unavailable BROWN_Kristel Attending Clinician Unavailable Sami Moore MD Attending Clinician Andres Attending Clinician Unavailable Nae Nick MD Attending Clinician Rick Alex MD Attending Clinician MICHAEL ALBARRAN Attending Clinician Unavailable GKOTSOULIAS, EFTHYMIOS Attending Clinician Unavailable SYSTEM, PROVIDER NOT IN [...] Daley Attending Clinician BROWN_Sudhir_Keith_ Admitting Clinician Unavailable Abdiaziz_S Admitting Clinician Unavailable Nae Nick MD Admitting Clinician Payers Payer Name Policy Type Policy Number Effective Date Expiration Date S josseline [place] ANTHEM [id number] 2021 00:00:00 BCBS (PPO) BCBS OS [id number] 2017 00:00:00 POS/PPO/EPO Problems Condition Condition Condition Status Onset Resolution Last Treating Co mments Source Name Details Category Date Date Treatment Clinician Date Failed Failed Disease Recurre 2021-[address] [facility] spinal spinal nce 03-09 [facility] cord cord 00:00: Medical stimulator stimulator 00 Ce nter S/P lumbar S/P lumbar Disease Active 2021-[address] [facility] spinal - [facility] fusion fusion 00:00: Medical 00 Center M54.17=RAD M54.17=RA Diagnosis Active 2021-11-25 Memoria ICULOPATHY DICULOPATH 11-12 09:45:00 l , Y, 00:00: Jeffery LUMBOSACRA LUMBOSACRA 00 L REGION L REGION Active 11/12/2021 [facility] Lumbar Lumbar Disease Active 2018-03 [facility] radiculopa radiculopa 0-08 st thy thy 00:00: Hospita 00 l Peripheral Peripheral Disease Active 2018-03 M ethodi polyneurop polyneurop 0-08 st athy athy 00:00: Hospita 00 l I82.402 - I82.402 Diagnosis Active 2018-11-22 [facility] ACUTE - ACUTE 07-28 18:08:00 l EMBOLISM EMBOLISM 00:01: Delroy n AND AND 00 LILIANABOS RICK UNS UNS Active 07/28/2018 [facility] Z12.31 - Z12.31 - Diagnosis Active 2017-08-27 [facility] ENCNTR ENCNTR 2-12 19:14:00 l SCREEN SCREEN 00:01: Hubbard MAMMOGRAM MAMMOGRAM 00 FOR MA FOR MA Active 04/19/2017 [facility] SNAKE BITE SNAKE Diagnosis Active 2016-10-04 Memoria L FT BITE L FT 10-04 16:21:00 l Active 07:00: [place] 10/04/2016 00 [facility] Vision Vision Disease Active [facility] changes changes 3- [facility] 00:00: [facility] 00 [place] Insomnia, Insomnia, Disease Active [facility] unspecifie unspecifie 06-01 Shannen kes d type d type 00:00: Medical 00 [place] Elevated Elevated Disease Active [facility] random random - [facility] blood blood 00:00: Medical glucose glucose 00 Center level level Irritable Irritable Disease Active [facility] 1[facility]29 [facility] 00:[facility]: Medical 00 [place] Gastroesop Gastroesop Disease Active [facility] hageal hageal 1-08 [facility] reflux reflux 00:00: Medical disease disease 00 Center without without esophagiti esophagiti s s Primary Primary Disease Active [facility] insomnia insomnia 1- [facility] 00:00: Medical 00 [place] Acute Acute Disease Active [facility] maxillary maxillary 1-08 Luke s sinusitis, sinusitis, 00:00: Me dical [...] Shannen kes s without s without 00:00: [facility] chanell myelopathy myelopathy 00 Ce nter Acute neck Acute neck Disease Active [facility] pain pain 8-03 [facility] 00:[facility]: Medical 00 Center Herniation Herniation Disease Active [facility] of of 8[facility]03 [facility] cervical cervical 00:00: Medica l interverte interverte 00 Ce nter bral disc bral disc with with radiculopa radiculopa thy thy PINCHED PINCHED Diagnosis Active 2015-09-08 Mem[facility] NERVE IN NERVE IN 09-07 07:25:00 l NECK NECK 00:00: Hubbard Active 00 09/08/2015 [facility] PAIN IN RT PAIN IN Diagnosis Active 2015-08-27 [facility] HAND RT HAND 20 15:38:00 l Active 00:00: Jeffery 08/26/2015 00 [facility] Colitis Colitis Disease Active [facility] 3[facility]03 [facility] 00:[facility]: Medical 00 Center Diarrhea Diarrhea Disease Active [facility] 3[facility] 00:[facility]: Medical 00 Center Nausea and Nausea and Disease Active [facility] vomiting vomiting 3-03 [facility] 00:00: Medical 00 [place] Restless Restless Disease Active [facility] t [...] Disease Active [facility] n n 3- [facility] 00:00: Medical 00 [place] 724.2 724.2 Diagnosis Active 2013-032015-06-06 Mem oria Active 03-21 07:29:00 l 01/19/2014 00:00: Delroy alegre The 00 [place] 724.4 724.4 Diagnosis Active 2013-032013-12-28 Mem oria Active 14:59:00 l 12/28/2013 00:00: Delroy alegre The 00 [place] 724.4, 724.4, Diagnosis Active 2013-032015-03-05 Me moria 996.40, 996.40, 16:20:00 l 724.02 724.02 00:00: Hubbard Active 00 12/28/2013 [facility] 351.9 - 351.9 - Diagnosis Active 2014-09-27 [facility] FACIAL FACIAL 09-18 11:03:00 l NERVE DI NERVE DI 00:01: Delroy alegre Active 00 09/18/2013 [facility] 338.18 - 338.18 - Diagnosis Active 2014-09-27 [facility] ACUTE ACUTE 09-06 10:56:00 l POSTOP PA POSTOP PA 00:01: [facility] 724.4 - 724.4 - 00 LUMBOSA LUMBOSA Active 09/06/2013 [facility] LUMBAR LUMBAR Diagnosis Active 2014-09-17 M emoria SPONDYLOSI SPONDYLOSI 08-07 16:05:00 l S S Active 00:00: Hubbard 08/07/2013 00 [facility] V76.11 - V76.11 - Diagnosis Active 2013-10-31 [facility] SCREEN SCREEN 11-30 23:18:00 l MAMMOGRA MAMMOGRA 00:01: Delroy n Active 00 11/30/2012 [facility] V76.12 - V76.12 - Diagnosis Active 2013-10-31 [facility] SCREEN SCREEN 09-27 23:18:00 l MAMMOGRA MAMMOGRA 00:01: Delroy n Active 00 09/27/2012 [facility] V76.11 - V76.11 - Diagnosis Active 2013-10-31 [facility] SCREEN SCREEN 06-01 23:18:00 l MAMMOGRA MAMMOGRA 00:01: Delroy n [facility] Backache Problem Active 2019-02-27 Memoria (finding) (finding) 00:33:41 l Active [place] Problem 02/27/2019 [facility], [facility] [place], [facility] Retention Retention Problem Active 2019-02-27 Memoria of urine of urine 00:33:41 l (disorder) (disorder) He rmann Active Problem 02/27/2019 [facility], [facility] HTN HTN Problem Active 2019-11-03 Memor ia (hypertens (hypertens 02:45:06 l ion) ion) Jeffery Active Problem 11/03/2019 [facility] GERD GERD Problem Active 2015-07-13 Memor ia (gastroeso (gastroeso 02:50:20 l phageal phageal Hubbard reflux reflux disease) disease) Active Problem 07/13/2015 [facility] Restless Restless Problem Active 2015-07-13 Memoria legs legs 02:50:20 l syndrome syndrome Delroy n [RLS] [RLS] Active Problem 07/13/2015 [facility] Peripheral Periphera Problem Active 2015-07-13 Memoria autonomic l 02:50:20 l neuropathy autonomic Her aldridge in neuropathy disorders in classified disorders elsewhere classified elsewhere Active Problem 07/13/2015 [facility] Gastropare Gastropar Problem Active 2015-07-13 Memoria sis esis 02:50:20 l Active Hubbard Problem 07/13/2015 [facility] Iron Iron Problem Active 2015-07-13 Memor ia deficiency deficiency 02:50:20 l anemia anemia Jeffery Active Problem 07/13/2015 [facility] Lumbar Lumbar Problem Active 2015-07-13 Raúl holland radiculiti radiculiti 02:50:20 l s s Active Hubbard Problem 07/13/2015 [facility] Anxiety Anxiety Problem Active 2015-07-13 Me moria state state 02:50:20 l Active Jeffery Problem 07/13/2015 [facility] Chronic Chronic Problem Active 2015-07-13 M emoria pain pain 02:50:20 l syndrome syndrome Delroy n Active Problem 07/13/2015 [facility] Generalize Generaliz Problem Active 2015-07-13 Memoria d ed 02:50:20 l osteoarthr osteoarthr He wilber osis, osis, involving involving multiple multiple sites sites Active Problem 07/13/2015 [facility] Insomnia, Insomnia, Problem Active 2015-07-13 Memoria unspecifie unspecifie 02:50:20 l d d Active Hubbard Problem 07/13/2015 [facility] Depressive Depressiv Problem Active 2015-07-13 Memoria disorder e disorder 02:50:20 l Active Jeffery Problem 07/13/2015 [facility] Mixed Mixed Problem Active 2021-04-01 Memor ia anxiety anxiety 08:01:21 l and and Jeffery depressive depressive disorder disorder (disorder) (disorder) Active Problem 04/01/2021 [facility] Dysphagia Dysphagia Problem Active 2021-04-01 Memoria (disorder) (disorder) 08:01:21 l Active Jeffery Problem 04/01/2021 [facility] Gastroesop Gastroeso Problem Active 2021-04-01 Memoria hageal phageal 08:01:21 l reflux reflux Hubbard disease disease (disorder) (disorder) Active Problem 04/01/2021 [facility] , [facility] [place], [facility] History of History Problem Active 2021-04-01 Memoria - migraine of - 08:01:21 l (context-d migraine Herm justo ependent (context-d category) ependent category) Active Problem 04/01/2021 [facility] Pain in Pain in Problem Active 2021-04-01 Me moria bilateral bilateral 08:01:21 l legs legs Hubbard (finding) (finding) Active Problem 04/01/2021 worse in right leg [facility] Recurrent Recurrent Problem Active 2021-04-01 Memoria urinary urinary 08:01:21 l tract tract Hubbard infection infection (disorder) (disorder) Active Problem 04/01/2021 [facility] LUMBOSACRA LUMBOSACR Diagnosis Active 2014-09-17 Memoria L AL 16:05:00 l SPONDYLOSI SPONDYLOSI He wilber S S Active [facility] LUMBAR LUMBAR Diagnosis Active 2014-09-17 Me moria DISC DISC 16:05:00 l DISPLACEME DISPLACEME He wilber NT NT Active [facility] RADICULOPA RADICULOP Diagnosis Active 2021-11-25 Memoria THY, ATHY, 09:45:00 l LUMBOSACRA LUMBOSACRA He wilber L REGION L REGION Active [facility] Carpal Carpal Problem Active 2022-10-08 Raúl holland tunnel tunnel 00:33:05 l syndrome syndrome Delroy n (disorder) (disorder) Active Problem 10/08/2022 [facility] [place] Cervical Cervical Problem Active 2022-10-08 Memoria spondylosi spondylosi 00:33:05 l s s Jeffery (disorder) (disorder) Active Problem 10/08/2022 [facility] Neuro,[facility] [place] Migraine Migraine Problem Active 2022-10-08 Memoria without without 00:33:05 l aura aura Jeffery (disorder) (disorder) Active Problem 10/08/2022 [facility] Neuro,[facility] [place] Peripheral Periphera Problem Active 2022-10-08 Memoria nerve l nerve 00:33:05 l disease disease Jeffery (disorder) (disorder) Active Problem 10/08/2022 [facility] Neuro,[facility] [place] Postproced Postproce Problem Active 2022-10-08 Memoria ural state dural 00:33:05 l finding state Jeffery (finding) finding (finding) Active Problem 10/08/2022 [facility] Neuro,[facility] [place] History of Past Illness Condition Condition Condition Status Onset Resolution Last Treating Co mments Source Name Details Category Date Date Treatment Clinician Date Other Other Problem 2016-10-07 2016-10-07 M emoria injury of injury of 10-04 00:37:18 00:37:18 l unspecifie unspecifie 05:00: He wilber d body d body 00 region region 10/04/2016 10/07/2016 [facility] Discharge Discharge Problem 2015-09-11 2015-09-11 Memoria Diagnosis: Diagnosis: 09-07 00:29:54 00:29:54 l Arm Arm 05:00: Jeffery paresthesi paresthesi 00 a, right a, right 09/08/2015 09/11/2015 [facility] Discharge Discharge Problem 2015-09-11 2015-09-11 Memnishant Diagnosis: Diagnosis: 09-07 00:29:54 00:29:54 l Arm pain Arm pain 05:00: Delroy n 09/08/2015 00 09/11/2015 [facility] Discharge Discharge Problem 2015-09-11 2015[facility]09-[facility] Diagnosis: Diagnosis: 09-07 00:29:54 00:29:54 l Neuropathi Neuropathi 05:00: He wilber c pain c pain 00 09/08/2015 09/11/2015 [facility] Discharge Discharge Problem 2015-08-30 2015-08-30 [facility] Diagnosis: Diagnosis: 08-25 03:16:15 03:16:15 l Osteoarthr Osteoarthr 05:00: He rmann itis itis 00 08/26/2015 08/30/2015 [facility] Allergies, Adverse Reactions, Alerts Allergy Allergy Status Severity Reaction(s) Onset Inactive Treating Comm ents Source Name Type Date Date Clinician Oxcarbaz Drug Active [facility] Allergy 6-23 [facility] 00:[facility]: [facility] 00 Center OXCARBAZ Allergy Active [facility] EPINE 6-23 [facility] 00:[facility]: [facility] 00 Center Tapentad Propensi Active Unknown 2018-03 Metho di ol ty to Reaction 0-08 st adverse 00:00: Hospita reaction 00 l s to drug Oxcarbaz Propensi Active Unknown 2018-03 Metho di epine ty to Reaction 0-08 st adverse 00:00: Hospita reaction 00 l s to drug Lamotrig Drug Active 2016-[address] ine Allergy 0-12 reaction( [facility] 00:00: s): Medical 00 unknown Center LAMOTRIG Allergy Active 2016-[address] [facility] INE 0-12 [facility] 00:00: Medical 00 Center Codeine Propensi Active Nausea And 2015-03 [...] Comments) Blurry vision Tramadol Propensi Active Anaphylaxis 2015- M ethodi ty to 0-20 st adverse 00:00: Hospita reaction 00 l s to drug CODEINE Allergy Active Med N\\T\\V 2015- [facility] 10-29 00:00: 00 Codeine Propensi Active Nausea And 2015- [facility] ty to Vomiting 10-29 [facility] [...] Other Dilaudid Dilaudid Active Memori a l Jefefry gabapent gabapent Active Memori a in in l [place] traMADol traMADol Active Memori a l Jeffery Lyrica Lyrica Active Memoria l [place] NO KNOWN Drug Active Univers ALLERGIE Class ity of S [facility] Family History Family Member Diagnosis Comments Start Date Stop Date Source Natural father Prostate cancer [facility] Natural father Arthritis [facility] Natural father Prostate cancer [facility] Natural mother Heart disease Methodi [facility] Natural mother Arthritis [facility] Natural mother Migraines [facility] Social History Social Habit Start Date Stop Date Quantity Comments Source Gender identity 2020-08-20 Identifies as Method ist 14:41:51 female gender Hospital (finding) History of tobacco Cigarette Smoker [facility] Sexual orientation [facility] Exposure to 2022-04-17 2022-04-27 Not sure [facility] of SARS-CoV-2 (event) 00:00:00 15:54:00 [facility] Alcohol intake 2022-02-02 2022-02-[address] Anay[facility] es 00:00:00 00:00:00 non-drinker of Medical Ce nter alcohol (finding) History of Social 2020-08-20 2020-08-[address] function 00:00:00 00:00:00 Hospital Cigarettes smoked 2015-10-09 2015-10-[address] [facility] current (pack per 00:00:00 00:00:00 Medical Center day) - Reported Cigarette 2015-10-09 2015-10-[address] [facility] pack-years 00:00:00 00:00:00 [facility] Tobacco use and 2015-10-09 2015-10-09 [address] [facility] exposure 00:00:00 00:00:00 non-user [facility] TobaccoUse: 2014-05-07 2014-05-07 [facility] 00:[facility] 00:00:00 Sex [birth year] AILYN Jacobo kes 00:00:00 00:00:00 [facility] Smoking Status Start Date Stop Date Source Tobacco smoking consumption [facility] Tobacco smoking status [facility] Medications Ordered Filled Start Stop Current Ordering Indication Dosage Frequency Signature Comments Components Source Medication Medication Date Date Medication? Clinician (SIG) Name Name topiramate Yes See Memoria 100 mg oral 7-30 Instructio l tablet 19:15: ns, TAKE Hubbard 00 ONE (1) TABLET(S) BY MOUTH EVERY MORNING AND 2 TABLETS IN THE EVENING., # 90 ea, 6 Refill(s), Pharmacy: [facility], 160.02, cm, 09/04/22 13:11:00 CDT, Height, 60.455, kg, 09/04/22 13:11:00 CDT, Weight ferrous Yes See Memoria sulfate 325 6-08 Instructio l mg oral 13:31: ns, TAKE Delroy n enteric 00 ONE (1) coated TABLET(S) tablet BY MOUTH ONCE A DAY., # 30 ea, 3 Refill(s), Pharmacy: [facility], 160.02, cm, 06/04/22 14:03:00 CDT, Height, 61.818, kg, 06/04/22 14:03:00 CDT, Weight SUMAtriptan 2022-0 Yes See Memori a 100 mg oral 5-03 Instructio l tablet 14:17: ns, TAKE Hubbard 00 ONE (1) TABLET(S) BY MOUTH ONCE A DAY FOR MIGRAINE HEADACHE., # 9 ea, 3 Refill(s), Pharmacy: [facility] [address], 160.02, cm, 06/04/22 14:03:00 CDT, Height, 61.818, kg, 06/04/22 14:03:00 CDT, Weight topiramate 2022-0 Yes See Memoria 100 mg oral 3-30 Instructio l tablet 19:27: ns, 1 po Hubbard 00 qam, 2 po qpm, # 90 tab, 3 Refill(s), Pharmacy: [facility], 160.02, cm, 06/04/22 14:03:00 CDT, Height, 61.818, kg, 06/04/22 14:03:00 CDT, Weight topiramate 2022-0 Yes See Memoria 100 mg oral 3-30 Instructio l tablet 19:27: ns, 1 po Jeffery 00 qam, 2 po qpm, # 90 tab, 3 Refill(s), Pharmacy: [facility], 160.02, cm, 06/04/22 14:03:00 CDT, Height, 61.818, kg, 06/04/22 14:03:00 CDT, Weight topiramate 2022-0 Yes See Memoria 100 mg oral 3-30 Instructio l tablet 19:27: ns, 1 po Jeffery 00 qam, 2 po qpm, # 90 tab, 3 Refill(s), Pharmacy: [facility], 160.02, cm, 06/04/22 14:03:00 CDT, Height, 61.818, kg, 06/04/22 14:03:00 CDT, Weight topiramate 2022-0 Yes See Memoria 100 mg oral 3-30 Instructio l tablet 19:27: ns, 1 po Hubbard 00 qam, 2 po qpm, # 90 tab, 3 Refill(s), Pharmacy: [facility], 160.02, cm, 06/04/22 14:03:00 CDT, Height, 61.818, kg, 06/04/22 14:03:00 CDT, Weight topiramate 2022-0 Yes See Memoria 100 mg oral 3-30 Instructio l tablet 19:27: ns, 1 po Hubbard 00 qam, 2 po qpm, # 90 tab, 3 Refill(s), Pharmacy: [facility], 160.02, cm, 06/04/22 14:03:00 CDT, Height, 61.818, kg, 06/04/22 14:03:00 CDT, Weight Imitrex 100 2022-0 Yes 100 mg = 1 Memoria mg oral 3-30 tab, PO, l tablet 19:26: Daily, PRN Christy nn 00 for migraine headache, X 30 day, # 9 tab, 1 Refill(s), Pharmacy: [facility], 160.02, cm, 06/04/22 14:03:00 CDT, Height, 61.818, kg, 06/04/22 14:03:00 CDT, Weight Imitrex 100 2022-0 Yes 100 mg = 1 Memoria mg oral 3-30 tab, PO, l tablet 19:26: Daily, PRN Christy nn 00 for migraine headache, X 30 day, # 9 tab, 1 Refill(s), Pharmacy: [facility], 160.02, cm, 06/04/22 14:03:00 CDT, Height, 61.818, kg, 06/04/22 14:03:00 CDT, Weight Imitrex 100 2022-0 Yes 100 mg = 1 Memoria mg oral 3-30 tab, PO, l tablet 19:26: Daily, PRN Christy nn 00 for migraine headache, X 30 day, # 9 tab, 1 Refill(s), Pharmacy: [facility], 160.02, cm, 06/04/22 14:03:00 CDT, Height, 61.818, kg, 06/04/22 14:03:00 CDT, Weight Imitrex 100 2022-0 Yes 100 mg = 1 Memoria mg oral 3-30 tab, PO, l tablet 19:26: Daily, PRN Christy nn 00 for migraine headache, X 30 day, # 9 tab, 1 Refill(s), Pharmacy: [facility], 160.02, cm, 06/04/22 14:03:00 CDT, Height, 61.818, kg, 06/04/22 14:03:00 CDT, Weight Imitrex 100 2023-0 Yes 100 mg = 1 Memoria mg oral 3-30 tab, PO, l tablet 19:26: Daily, PRN Christy nn 00 for migraine headache, X 30 day, # 9 tab, 1 Refill(s), Pharmacy: [facility], 160.02, cm, 06/04/22 14:03:00 CDT, Height, 61.818, kg, 06/04/22 14:03:00 CDT, Weight ferrous 2023-0 Yes See Memoria sulfate 325 1-27 Instructio l mg oral 15:14: ns, TAKE Delroy n enteric 00 ONE (1) coated TABLET(S) tablet BY MOUTH ONCE A DAY., # 30 ea, 3 Refill(s), Pharmacy: [facility] [facility] [address], 157.48, cm, 12/11/21 9:34:00 CDT, Height, 60.511, kg, 12/11/21 9:34:00 CDT, Weight ferrous 2023-0 Yes See Memoria sulfate 325 1-27 Instructio l mg oral 15:14: ns, TAKE Delroy n enteric 00 ONE (1) coated TABLET(S) tablet BY MOUTH ONCE A DAY., # 30 ea, 3 Refill(s), Pharmacy: [facility] [address], 157.48, cm, 12/11/21 9:34:00 CDT, Height, 60.511, kg, 12/11/21 9:34:00 CDT, Weight ferrous 2023-0 Yes See Memoria sulfate 325 1-27 Instructio l mg oral 15:14: ns, TAKE Delroy n enteric 00 ONE (1) coated TABLET(S) tablet BY MOUTH ONCE A DAY., # 30 ea, 3 Refill(s), Pharmacy: [place] [address], 157.48, cm, 12/11/21 9:34:00 CDT, Height, 60.511, kg, 12/11/21 9:34:00 CDT, Weight ferrous 2023-0 Yes See Memoria sulfate 325 1-27 Instructio l mg oral 15:14: ns, TAKE Delroy n enteric 00 ONE (1) coated TABLET(S) tablet BY MOUTH ONCE A DAY., # 30 ea, 3 Refill(s), Pharmacy: [facility] [address], 157.48, cm, 12/11/21 9:34:00 CDT, Height, 60.511, kg, 12/11/21 9:34:00 CDT, Weight ferrous 2022-0 Yes See Memoria sulfate 325 1-27 Instructio l mg oral 15:14: ns, TAKE Delroy n enteric 00 ONE (1) coated TABLET(S) tablet BY MOUTH ONCE A DAY., # 30 ea, 3 Refill(s), Pharmacy: [facility] [address], 157.48, cm, 12/11/21 9:34:00 CDT, Height, 60.511, kg, 12/11/21 9:34:00 CDT, Weight ferrous 2022-0 Yes See Memoria sulfate 325 1-27 Instructio l mg oral 15:14: ns, TAKE Delroy n enteric 00 ONE (1) coated TABLET(S) tablet BY MOUTH ONCE A DAY., # 30 ea, 3 Refill(s), Pharmacy: [facility] [address], 157.48, cm, 12/11/21 9:34:00 CDT, Height, 60.511, kg, 12/11/21 9:34:00 CDT, Weight BIFIDOBACTE 2021-03 Yes Take by [facility] RIUM 1-28 mouth. [facility] INFANTIS 13:01: Medical (ALIGN 50 Center ORAL) nitrofurant 2021-03 Yes 100mg Take [address] oin 1-28 mg by [facility] (MACRODANTI 13:01: mouth as Me dical N) 100 MG 50 needed. Center capsule BIFIDOBACTE 2021-03 Yes Take by [facility] RIUM 1-28 mouth. [facility] INFANTIS 13:01: Medical (ALIGN 50 Center ORAL) nitrofurant 2021-03 Yes 100mg Take [address] oin 1-28 mg by [facility] (MACRODANTI 13:01: mouth as Me dical N) 100 MG 50 needed. Center capsule BIFIDOBACTE 2022-1 Yes Take by [facility] RIUM 1-28 mouth. [facility] INFANTIS 13:01: Medical (ALIGN 50 Center ORAL) nitrofurant 2021-03 Yes 100mg Take [address] oin 1-28 mg by [facility] (MACRODANTI 13:01: mouth as Me dical N) 100 MG 50 needed. Center capsule BIFIDOBACTE 2021-03 Yes Take by [facility] RIUM 1-28 mouth. [facility] INFANTIS 13:01: Medical (ALIGN 50 Center ORAL) nitrofurant 2021-03 Yes 100mg Take [address] oin 1-28 mg by [facility] (MACRODANTI 13:01: mouth as Me dical N) 100 MG 50 needed. Center capsule BIFIDOBACTE 2021-03 Yes Take by [facility] RIUM 1-28 mouth. [facility] INFANTIS 13:01: Medical (ALIGN 50 Center ORAL) nitrofurant 2021-03 Yes 100mg Take [address] oin 1-28 mg by [facility]ukes (MACRODANTI 13:01: mouth as Me dical N) 100 MG 50 needed. Center capsule AZITHROmyci 2021-03 Yes Acute URI Take [address] [facility] n 1-28 tablets [facility] (Zithromax) 00:00: (500 mg) Me dical 250 MG 00 on Day 1, Center tablet followed by 1 tablet (250 mg) once daily on Days 2 through 5.. AZITHROmyci 2021-03 Yes Acute URI Take [address] [facility] [address] n 1-28 tablets [facility] (Zithromax) 00:00: (500 mg) Me dical 250 MG 00 on Day 1, Center tablet followed by 1 tablet (250 mg) once daily on Days 2 through 5.. AZITHROmyci 2021-03 Yes Acute URI Take [address] [facility] [address] n 1-28 tablets [facility] (Zithromax) 00:00: (500 mg) Me dical 250 MG 00 on Day 1, Center tablet followed by 1 tablet (250 mg) once daily on Days 2 through 5.. AZITHROmyci 2021-03 Yes Acute URI Take [address] [facility] n 1-28 tablets [facility] (Zithromax) 00:00: (500 mg) Me dical 250 MG 00 on Day 1, Center tablet followed by 1 tablet (250 mg) once daily on Days 2 through 5.. AZITHROmyci 2021-03 Yes Acute URI Take [address] [facility] [address] n 1-28 tablets [facility] (Zithromax) 00:00: (500 mg) Me dical 250 MG 00 on Day 1, Center tablet followed by 1 tablet (250 mg) once daily on Days 2 through 5.. amoxicillin 2021-03- No 1{tbl} [id number] Take [address] -clavulanat 1-15 11-15 [id number] tablet by [facility]ukes e 16:58: 00:00 3D mouth 3 Medical (AUGMENTIN) 55 :00 (three) Cente r 500-125 mg times per tablet daily. amoxicillin 2021-03- No 1{tbl} Q.[id number] Take [address] -clavulanat 1-15 11-15 [id number] tablet by [facility]ukes e 16:58: 00:00 3D mouth 3 Medical (AUGMENTIN) 55 :00 (three) Cente r 500-125 mg times per tablet daily. amoxicillin 2021-03- No 1{tbl} Q.[id number] Take [address] -clavulanat 1-15 11-15 [id number] [facility] 3D mouth 3 Medical (AUGMENTIN) 55 :00 (three) Cente r 500-125 mg times per tablet daily. amoxicillin 2021-03- No 1{tbl} Q.[id number] Take [address] [facility] -clavulanat 1-15 11-15 [id number] tablet by [facility]: 00:00 3D mouth 3 Medical (AUGMENTIN) 55 :00 (three) Cente r 500-125 mg times per tablet daily. amoxicillin 2021-03- No 1{tbl} Q.[id number] Take [address] [facility] -clavulanat 1-15 11-15 [id number] tablet by [facility]: 00:00 3D mouth 3 Medical (AUGMENTIN) 55 :00 (three) Cente r 500-125 mg times per tablet daily. bromphenira 2021-03 Yes Cough 5mL Take [address] [facility] mine-pseudo 1-15 by mouth [facility] eph-DM 00:00: every 6 Medical (BROMFED 00 (six) Center DM) 2-30-10 hours as mg/5 mL needed. syrup bromphenira 2021-03 Yes Cough 5mL Take [address] [facility] mine-pseudo 1-15 by mouth [facility] s eph-DM 00:00: every 6 Medical (BROMFED ([facility]) 2-30-10 hours as mg/5 mL needed. syrup bromphenira 2021-03 Yes Cough 5mL Take [address] [facility] mine-pseudo 1-15 by mouth [facility] s eph-DM 00:00: every 6 Medical (BROMFED ([facility]) 2-30-10 hours as mg/5 mL needed. syrup bromphenira 2021-03 Yes Cough 5mL Take [address] [facility] mine-pseudo 1-15 by mouth Luke s eph-DM 00:00: every 6 Medical (BROMFED ([facility]) 2-30-10 hours as mg/5 mL needed. syrup bromphenira 2021-03 Yes Cough 5mL Take [address] [facility] mine-pseudo 1-15 by mouth [facility] s eph-DM 00:00: every 6 Medical (BROMFED ([facility]) 2-30-10 hours as mg/5 mL needed. syrup methylPREDN 2021-03- No Acute URI 4mg QD Take [address] [facility] ISolone 1-15 11-15 tablet (4 [facility] (MEDROL 00:00: 23:59 mg total) Medi chanell DOSEPACK) 4 00 :00 by mouth Cent er mg tablet daily follow package directions . methylPREDN 2021-03- No Acute URI 4mg QD Take [address] [facility] ISolone 1-15 11-15 tablet (4 [facility] (MEDROL 00:00: 23:59 mg total) Medi [facility]ell DOSEPACK) 4 00 :00 by mouth Cent er mg tablet daily follow package directions . methylPREDN 2021-03- No Acute URI 4mg QD Take [address] [facility] ISolone 1-15 11-15 tablet (4 [facility] (MEDROL 00:00: 23:59 mg total) Medi [facility]ell DOSEPACK) 4 00 :00 by mouth Cent er mg tablet daily follow package directions . methylPREDN 2021-03- No Acute URI 4mg QD Take [address] [facility] ISolone 1-15 11-15 tablet (4 [facility] (MEDROL 00:00: 23:59 mg total) Medi [facility]ell DOSEPACK) 4 00 :00 by mouth Cent er mg tablet daily follow package directions . methylPREDN 2021-03 Acute URI 4mg QD Take [address] [facility] ISolone 1-15 -15 tablet (4 [facility] (MEDROL 00:00: 23:59 mg total) Medi [facility]ell DOSEPACK) 4 00 :00 by mouth Cent er mg tablet daily follow package directions . amoxicillin 2021-03 No Acute 1{tbl} Q.5D Take [address] [facility] -clavulanat 1-15 02-03 non-recurre tablet by [facility] 00:[facility]: 23:59 nt mouth 2 Medical (Augmentin) 00 :00 sinusitis, (two) C enter 875-125 mg unspecified times per tablet location daily for 14 days. amoxicillin 2021-03 No Acute 1{tbl} Q.5D Take [address] [facility] -clavulanat 1-15 -29 non-recurre tablet by [facility] 00:00: 23:59 nt mouth 2 Medical (Augmentin) 00 :00 sinusitis, (two) C enter 875-125 mg unspecified times per tablet location daily for 14 days. amoxicillin 2021-03 No Acute 1{tbl} Q.5D Take [address] [facility] -clavulanat 1-15 -29 non-recurre tablet by [facility] 00:00: 23:59 nt mouth 2 Medical (Augmentin) 00 :00 sinusitis, (two) C enter 875-125 mg unspecified times per tablet location daily for 14 days. amoxicillin 2021-03 No Acute 1{tbl} Q.5D Take [address] [facility] -clavulanat 1-15 -29 non-recurre tablet by [facility] 00:00: 23:59 nt mouth 2 Medical (Augmentin) 00 :00 sinusitis, (two) C enter 875-125 mg unspecified times per tablet location daily for 14 days. amoxicillin 2021-03 No Acute 1{tbl} Q.5D Take [address] [facility] -clavulanat 1-15 -29 non-recurre tablet by [facility] 00:00: 23:59 nt mouth 2 Medical (Augmentin) 00 :00 sinusitis, (two) C enter 875-125 mg unspecified times per tablet location daily for 14 days. diazePAM 2021-03 Yes Anxiety 10mg Take [address] [facility] (VALIUM) 10 1-09 tablet (10 Shannen kes MG tablet 00:00: mg total) Med ical 00 by mouth Center every 8 (eight) hours as needed for Anxiety. Max Daily Amount: 30 mg diazePAM 2021-03 Yes Anxiety 10mg Take [address] [facility] (VALIUM) 10 -09 tablet (10 Shannen kes MG tablet 00:00: mg total) Med ical 00 by mouth Center every 8 (eight) hours as needed for Anxiety. Max Daily Amount: 30 mg diazePAM 2021-03 Yes Anxiety 10mg Take [address] [facility] (VALIUM) 10 -09 tablet (10 Shannen kes MG tablet 00:00: mg total) Med ical 00 by mouth Center every 8 (eight) hours as needed for Anxiety. Max Daily Amount: 30 mg diazePAM 2021-03 Yes Anxiety 10mg Take [address] [facility] (VALIUM) 10 -09 tablet (10 Shannen kes MG tablet 00:00: mg total) Med ical 00 by mouth Center every 8 (eight) hours as needed for Anxiety. Max Daily Amount: 30 mg diazePAM 2021-03 Yes Anxiety 10mg Take [address] [facility] (VALIUM) 10 -09 tablet (10 Shannen kes MG tablet 00:00: mg total) Med ical 00 by mouth Center every 8 (eight) hours as needed for Anxiety. Max Daily Amount: 30 mg baclofen 2021-03 Yes 20mg [id number] Take [address] [facility] (LIORESAL) 03-08 [id number] tablet (20 [facility] 20 MG 00:00: 3D mg total) Medical tablet 00 by mouth 3 Center (three) times daily. SUMAtriptan 2021-03 Yes Persistent 100mg Q.5D Take [address] [facility] (IMITREX) 03-08 headaches tablet Anayeli es 100 MG 00:00: (100 mg Medical tablet 00 total) by Center mouth 2 (two) times daily. baclofen 2021-03 Yes 20mg Q.[id number] Take [address] (LIORESAL) - [id number] tablet (20 [facility] 20 MG 00:00: 3D mg total) Medical tablet 00 by mouth 3 Center (three) times daily. SUMAtriptan 2021-03 Yes Persistent 100mg Q.5D Take [address] [facility] (IMITREX) 1-01 headaches tablet Anayeli es 100 MG 00:00: (100 mg Medical tablet 00 total) by Center mouth 2 (two) times daily. baclofen 2021-03 Yes 20mg Q.[id number] Take [address] (LIORESAL) 1-01 [id number] tablet (20 [facility] 20 MG 00:00: 3D mg total) Medical tablet 00 by mouth 3 Center (three) times daily. SUMAtriptan 2021-03 Yes Persistent 100mg Q.5D Take [address] [facility] (IMITREX) 1-01 headaches tablet Anayeli es 100 MG 00:00: (100 mg Medical tablet 00 total) by Center mouth 2 (two) times daily. baclofen 2021-03 Yes 20mg Q.[id number] Take [address] (LIORESAL) 1-01 [id number] tablet (20 [facility] 20 MG 00:00: 3D mg total) Medical tablet 00 by mouth 3 Center (three) times daily. SUMAtriptan 2021-03 Yes Persistent 100mg Q.5D Take [address] [facility] (IMITREX) 1-01 headaches tablet Anayeli es 100 MG 00:00: (100 mg Medical tablet 00 total) by Center mouth 2 (two) times daily. baclofen 2021-03 Yes 20mg Q.[id number] Take [address] (LIORESAL) 1-01 [id number] tablet (20 [facility] 20 MG 00:00: 3D mg total) Medical tablet 00 by mouth 3 Center (three) times daily. SUMAtriptan 2021-03 Yes Persistent 100mg Q.5D Take [address] [facility] (IMITREX) 1-01 headaches tablet Anayeli es 100 MG 00:00: (100 mg Medical tablet 00 total) by Center mouth 2 (two) times daily. lidocaine 2021-03 Yes APPLY ONE [facility] (LIDODERM) 0-28 TOPICALLY [facility] s 5 % patch 00:00: TO CLEAN, Med ical 00 DRY SKIN. Center LEAVE ON FOR 12 HOURS THEN REMOVE. MUST WAIT AT LEAST 12 HOURS BEFORE PATCHES AGAIN. rOPINIRole 2021-03 Yes Restless 2mg Q.[id number] Take [address] [facility] (REQUIP) 2 0-28 leg [id number] tablet (2 [facility] tablet 00:00: syndrome 3D mg total) Medical 00 by mouth 3 Center (three) times daily. lidocaine 2021-03 Yes APPLY ONE [facility] (LIDODERM) 0-28 TOPICALLY [facility] s 5 % patch 00:00: TO CLEAN, Med ical 00 DRY SKIN. Center LEAVE ON FOR 12 HOURS THEN REMOVE. MUST WAIT AT LEAST 12 HOURS BEFORE PATCHES AGAIN. rOPINIRole 2021-03 Yes Restless 2mg Q.[id number] Take [address] [facility] (REQUIP) 2 0-28 leg [id number] tablet (2 [facility] tablet 00:00: syndrome 3D mg total) Medical 00 by mouth 3 Center (three) times daily. lidocaine 2021-03 Yes APPLY ONE [facility] (LIDODERM) 0-28 TOPICALLY Luke s 5 % patch 00:00: TO CLEAN, Med ical 00 DRY SKIN. Center LEAVE ON FOR 12 HOURS THEN REMOVE. MUST WAIT AT LEAST 12 HOURS BEFORE PATCHES AGAIN. rOPINIRole 2021-03 Yes Restless 2mg Q.[id number] Take [address] [facility] (REQUIP) 2 0-28 leg [id number] tablet (2 [facility] tablet 00:00: syndrome 3D mg total) Medical 00 by mouth 3 Center (three) times daily. lidocaine 2021-03 Yes APPLY ONE [facility] (LIDODERM) 0-28 TOPICALLY Luke s 5 % patch 00:00: TO CLEAN, Med ical 00 DRY SKIN. Center LEAVE ON FOR 12 HOURS THEN REMOVE. MUST WAIT AT LEAST 12 HOURS BEFORE PATCHES AGAIN. rOPINIRole 2021-03 Yes Restless 2mg Q.[id number] Take [address] [facility] (REQUIP) 2 0-28 leg [id number] tablet (2 [facility] tablet 00:00: syndrome 3D mg total) Medical 00 by mouth 3 Center (three) times daily. lidocaine 2021-03 Yes APPLY ONE [facility] (LIDODERM) 0-28 TOPICALLY [facility] s 5 % patch 00:00: TO CLEAN, Med ical 00 DRY SKIN. Center LEAVE ON FOR 12 HOURS THEN REMOVE. MUST WAIT AT LEAST 12 HOURS BEFORE PATCHES AGAIN. rOPINIRole 2021-03 Yes Restless 2mg Q.[id number] Take [address] [facility] (REQUIP) 2 0-28 leg [id number] tablet (2 [facility] tablet 00:00: syndrome 3D mg total) Medical 00 by mouth 3 Center (three) times daily. ferrous 2021-03 Yes 325 mg = 1 [facility] sulfate 325 0-06 tab, PO, l mg oral 14:53: Daily, # Delroy n enteric 00 30 tab, 3 coated Refill(s), tablet Pharmacy: [facility], 157.48, cm, 12/11/21 9:34:00 CDT, Height, 60.511, kg, 12/11/21 9:34:00 CDT, Weight ferrous 2021-03 Yes 325 mg = 1 [facility] sulfate 325 0-06 tab, PO, l mg oral 14:53: Daily, # [place]roy n enteric 00 30 tab, 3 coated Refill(s), tablet Pharmacy: [facility], 157.48, cm, 12/11/21 9:34:00 CDT, Height, 60.511, kg, 12/11/21 9:34:00 CDT, Weight ferrous 2021-03 Yes 325 mg = 1 [facility] sulfate 325 0-06 tab, PO, l mg oral 14:53: Daily, # [place] n enteric 00 30 tab, 3 coated Refill(s), tablet Pharmacy: [facility], 157.48, cm, 12/11/21 9:34:00 CDT, Height, 60.511, kg, 12/11/21 9:34:00 CDT, Weight ferrous 2021-03 Yes 325 mg = 1 [facility] sulfate 325 0-06 tab, PO, l mg oral 14:53: Daily, # [place] n enteric 00 30 tab, 3 coated Refill(s), tablet Pharmacy: [facility], 157.48, cm, 12/11/21 9:34:00 CDT, Height, 60.511, kg, 12/11/21 9:34:00 CDT, Weight ferrous 2021-03 Yes 325 mg = 1 [facility] sulfate 325 0-06 tab, PO, l mg oral 14:53: Daily, # [place] n enteric 00 30 tab, 3 coated Refill(s), tablet Pharmacy: [facility], 157.48, cm, 12/11/21 9:34:00 CDT, Height, 60.511, kg, 12/11/21 9:34:00 CDT, Weight ferrous 2021-03 Yes 325 mg = 1 [facility] sulfate 325 0-06 tab, PO, l mg oral 14:53: Daily, # [place] n enteric 00 30 tab, 3 coated Refill(s), tablet Pharmacy: [facility], 157.48, cm, 12/11/21 9:34:00 CDT, Height, 60.511, kg, 12/11/21 9:34:00 CDT, Weight ferrous 2021-03 Yes 325 mg = 1 [facility] sulfate 325 0-06 tab, PO, l mg oral 14:53: Daily, # [place] n enteric 00 30 tab, 3 coated Refill(s), tablet Pharmacy: [facility], 157.48, cm, 12/11/21 9:34:00 CDT, Height, 60.511, kg, 12/11/21 9:34:00 CDT, Weight Effexor XR 2021-03 Yes 75 mg = 1 Me moria 75 mg oral 0-06 cap, PO, l capsule, 14:50: Daily, # Christy nn extended 00 30 cap, 0 release Refill(s) Effexor XR 2021-03 Yes 75 mg = 1 Me moria 75 mg oral 0-06 cap, PO, l capsule, 14:50: Daily, # Christy nn extended 00 30 cap, 0 release Refill(s) Effexor XR 2021-03 Yes 75 mg = 1 Me moria 75 mg oral 0-06 cap, PO, l capsule, 14:50: Daily, # Christy nn extended 00 30 cap, 0 release Refill(s) Effexor XR 2021-03 Yes 75 mg = 1 Me moria 75 mg oral 0-06 cap, PO, l capsule, 14:50: Daily, # Christy nn extended 00 30 cap, 0 release Refill(s) Effexor XR 2021-03 Yes 75 mg = 1 Me moria 75 mg oral 0-06 cap, PO, l capsule, 14:50: Daily, # Christy nn extended 00 30 cap, 0 release Refill(s) Effexor XR 2021-03 Yes 75 mg = 1 Me moria 75 mg oral 0-06 cap, PO, l capsule, 14:50: Daily, # Christy nn extended 00 30 cap, 0 release Refill(s) Effexor XR 2021-03 Yes 75 mg = 1 Me moria 75 mg oral 0-06 cap, PO, l capsule, 14:50: Daily, # Christy nn extended 00 30 cap, 0 release Refill(s) [facility] 2021-03 Yes 1 tab, PO, Memoria oral tablet 0-06 Q6H, 0 l 14:36: Refill(s) [place] [facility] 2021-03 Yes 1 tab, PO, Memoria oral tablet 0-06 Q6H, 0 l 14:36: Refill(s) [place] [facility] 2021-03 Yes 1 tab, PO, Memoria oral tablet 0-06 Q6H, 0 l 14:36: Refill(s) [place] [facility] 2021-03 Yes 1 tab, PO, Memoria oral tablet 0-06 Q6H, 0 l 14:36: Refill(s) [place] [facility] 2021-03 Yes 1 tab, PO, Memoria oral tablet 0-06 Q6H, 0 l 14:36: Refill(s) [place] [facility] 2021-03 Yes 1 tab, PO, Memoria oral tablet 0-06 Q6H, 0 l 14:36: Refill(s) [place] [facility] 2021-03 Yes 1 tab, PO, Memoria oral tablet 0-06 Q6H, 0 l 14:36: Refill(s) [facility] omeprazole Yes [facility] (PriLOSEC[facility] 9-30 capsule by Anayeli es 20 MG 00:00: mouth once Medica l capsule 00 daily Center omeprazole Yes Take 1 [facility] (PriLOSEC[facility] 9-30 capsule by Anayeli es 20 MG 00:00: mouth once Medica l capsule 00 daily Center omeprazole Yes Take 1 [facility] (PriLOSEC) 9-30 capsule by Anayeli es 20 MG 00:00: mouth once Medica l capsule 00 daily Center omeprazole Yes Take 1 [facility] (PriLOSEC) 9-30 capsule by Anayeli es 20 MG 00:00: mouth once Medica l capsule 00 daily Center omeprazole Yes Take 1 [facility] (PriLOSEC[facility] 9-30 capsule by Anayeli es 20 MG 00:00: mouth once Medica l capsule 00 daily [facility] celecoxib Yes Take [address] [facility] (CeleBREX) 9-26 capsule by Anayeli es 200 MG 00:00: mouth once Medic al capsule 00 daily [facility] celecoxib Yes Take [address] [facility] (CeleBREX) 9-26 capsule by Anayeli es 200 MG 00:00: mouth once Medic al capsule 00 daily [facility] celecoxib Yes Take [address] [facility] (CeleBREX) 9-26 capsule by Anayeli es 200 MG 00:00: mouth once Medic al capsule 00 daily [facility] celecoxib Yes Take [address] [facility] (CeleBREX) 9-26 capsule by Anayeli es 200 MG 00:00: mouth once Medic al capsule 00 daily [facility] celecoxib Yes Take [address] [facility] (CeleBREX) 9-26 capsule by Anayeli es 200 MG 00:00: mouth once Medic al capsule 00 daily [facility] cholestyram 2022- No Diarrhea, 1{packe Q.5D Take [address] [facility] ine 12-01 unspecified t} packet by Shannen cosme (3seventy) 00:00: 23:59 type mouth 2 Med ical 4 gram PwPk 00 :00 (two) Center packet times daily. venlafaxine 2022- No Depression 75mg QD Take [address] [facility] (Effexor 12-01 with capsule [facility] XR) 75 MG 00:00: 23:59 anxiety (75 mg Me dical 24 hr 00 :00 total) by Center capsule mouth daily. cholestyram 2022- No Diarrhea, 1{packe Q.5D Take [address] [facility] ine 12-01 unspecified t} packet by Shannen [employer]) 00:00: 23:59 type mouth 2 Med ical 4 gram PwPk 00 :00 (two) Center packet times daily. venlafaxine 2022- No Depression 75mg QD Take [address] [facility] (Effexor 12-01 with capsule [facility] X[facility]) 75 MG 00:00: 23:59 anxiety (75 mg Me dical 24 hr 00 :00 total) by Center capsule mouth daily. cholestyram 2022- No Diarrhea, 1{packe Q.5D Take [address] [facility] ine 12-01 unspecified t} packet by Shannen cosme ([employer]) 00:00: 23:59 type mouth 2 Med ical 4 gram PwPk 00 :00 (two) Center packet times daily. venlafaxine 2022- No Depression 75mg QD Take [address] [facility] (Effexor 12-01 with capsule [facility]) 75 MG 00:00: 23:59 anxiety (75 mg Me dical 24 hr 00 :00 total) by Center capsule mouth daily. cholestyram 2022- No Diarrhea, 1{packe Q.5D Take [address] [facility] ine 12-01 unspecified t} packet by Shannen cosme ([employer]) 00:00: 23:59 type mouth 2 Med ical 4 gram PwPk 00 :00 (two) Center packet times daily. venlafaxine 2022- No Depression 75mg QD Take [address] [facility] (Effexor 12-01 with capsule [facility]) 75 MG 00:00: 23:59 anxiety (75 mg Me dical 24 hr 00 :00 total) by Center capsule mouth daily. cholestyram 2022- No Diarrhea, 1{packe Q.5D Take [address] [facility] ine 12-01 unspecified t} packet by Shannen cosme ([employer]) 00:00: 23:59 type mouth 2 Med ical 4 gram PwPk 00 :00 (two) Center packet times daily. venlafaxine 2022- No Depression 75mg QD Take [address] [facility] (Effexor 12-01 with capsule [facility]) 75 MG 00:00: 23:59 anxiety (75 mg Me dical 24 hr 00 :00 total) by Center capsule mouth daily. baclofen 2021- No TAKE [address] [facility] (LIORESAL) 12-01 TABLET BY Anayeli es 20 MG 00:00: 00:00 MOUTH Medical tablet 00 :00 THREE Center TIMES DAILY baclofen 2021- No TAKE [address] [facility] (LIORESAL) 12-01 TABLET BY Anayeli es 20 MG 00:00: 00:00 MOUTH Medical tablet 00 :00 THREE Center TIMES DAILY baclofen 2021-0 2021- No TAKE [address] [facility] (LIORESAL) 12-01 TABLET BY Anayeli es 20 MG 00:00: 00:00 MOUTH Medical tablet 00 :00 THREE Center TIMES DAILY baclofen 2021-0 2021- No TAKE [address] [facility] (LIORESAL) 12-01 TABLET BY Anayeli es 20 MG 00:00: 00:00 MOUTH Medical tablet 00 :00 THREE Center TIMES DAILY baclofen 2021-0 2021- No TAKE [address] [facility] (LIORESAL) 12-01 TABLET BY Anayeli es 20 MG 00:00: 00:00 MOUTH Medical tablet 00 :00 THREE Center TIMES DAILY HYDROcodone 2021-2021- No 1{tbl} Take [address] [facility] -acetaminop 9-26 10-26 tablet by Shannen shaikh ([employer] 00:00: 23:59 mouth Medic al 5-325) 00 :00 every 8 Center 5-325 mg (eight) per tablet hours as needed for Pain for up to 30 days. Max Daily Amount: 3 tablets HYDROcodone 2021-2021- No 1{tbl} Take [address] -acetaminop 9-26 10-26 tablet by Shannen shaikh ([employer] 00:00: 23:59 mouth Medic al 5-325) 00 :00 every 8 Center 5-325 mg (eight) per tablet hours as needed for Pain for up to 30 days. Max Daily Amount: 3 tablets HYDROcodone 2021-2021- No 1{tbl} Take [address] -acetaminop 9-26 10-26 tablet by Shannen shaikh ([employer] 00:00: 23:59 mouth Medic al 5-325) 00 :00 every 8 Center 5-325 mg (eight) per tablet hours as needed for Pain for up to 30 days. Max Daily Amount: 3 tablets HYDROcodone 2021-2021- No 1{tbl} Take [address] -acetaminop 9-26 10-26 tablet by Shannen shaikh ([employer] 00:00: 23:59 mouth Medic al 5-325) 00 :00 every 8 Center 5-325 mg (eight) per tablet hours as needed for Pain for up to 30 days. Max Daily Amount: 3 tablets HYDROcodone 2021-0 2021- No 1{tbl} Take [address] -acetaminop - 10-26 tablet by Shannen shaikh ([employer] 00:00: 23:59 mouth Medic al 5-325) 00 :00 every 8 Center 5-325 mg (eight) per tablet hours as needed for Pain for up to 30 days. Max Daily Amount: 3 tablets Imitrex 100 2021-0 Yes 100 mg = 1 [facility] mg oral 9-13 tab, PO, l tablet 19:15: Daily, PRN Christy nn 00 for migraine headache, # 9 tab, 0 Refill(s) Imitrex 100 2021-0 Yes 100 mg = 1 [facility] mg oral 9-13 tab, PO, l tablet 19:15: Daily, PRN Christy nn 00 for migraine headache, # 9 tab, 0 Refill(s) Imitrex 100 2021-0 Yes 100 mg = 1 [facility] mg oral 9-13 tab, PO, l tablet 19:15: Daily, PRN Christy nn 00 for migraine headache, # 9 tab, 0 Refill(s) Imitrex 100 2021-0 Yes 100 mg = 1 [facility] mg oral 9-13 tab, PO, l tablet 19:15: Daily, PRN Christy nn 00 for migraine headache, # 9 tab, 0 Refill(s) Imitrex 100 2021-0 Yes 100 mg = 1 [facility] mg oral 9-13 tab, PO, l tablet 19:15: Daily, PRN Christy nn 00 for migraine headache, # 9 tab, 0 Refill(s) Imitrex 100 2021-0 Yes 100 mg = 1 [facility] mg oral 9-13 tab, PO, l tablet 19:15: Daily, PRN Christy nn 00 for migraine headache, # 9 tab, 0 Refill(s) Imitrex 100 2021-0 Yes 100 mg = 1 [facility] mg oral 9-13 tab, PO, l tablet 19:15: Daily, PRN Christy nn 00 for migraine headache, # 9 tab, 0 Refill(s) Imitrex 100 2021-0 Yes 100 mg = 1 Memoria mg [...] 9-13 TABLET BY l tablet 18:43: MOUTH [place] 00 THREE TIMES DAILY rOPINIRole Yes TAKE 1 Memor ia 2 mg oral 9-13 TABLET BY l tablet 18:43: MOUTH Jeffery 00 THREE TIMES DAILY diazepam 10 Yes TAKE 1 [facility]l [facility]land mg oral 9-13 TABLET BY l tablet 18:43: MOUTH Jeffery 00 EVERY 8 HOURS NEEDED FOR ANXIETY . DO NOT EXCEED 3 PER 24 HOURS topiramate Yes TAKE 1 Memor ia 100 mg oral 9-13 TABLET BY l tablet 18:43: MOUTH IN [place] 00 THE MORNING AND 2 TABLETS IN THE EVENING celecoxib Yes TAKE 1 Memori a 200 mg oral 9-13 CAPSULE BY l capsule 18:43: MOUTH ONCE Herm justo DAILY baclofen 20 Yes TAKE 1 [facility] mg oral 9-13 TABLET BY l tablet 18:43: MOUTH [place] 00 THREE TIMES DAILY rOPINIRole 0 Yes TAKE 1 Memor ia 2 mg oral 9-13 TABLET BY l tablet 18:43: MOUTH Jeffery 00 THREE TIMES DAILY diazepam 10 Yes TAKE 1 [facility] mg oral 9-13 TABLET BY l tablet 18:43: MOUTH [place] 00 EVERY 8 HOURS NEEDED FOR ANXIETY . DO NOT EXCEED 3 PER 24 HOURS topiramate Yes TAKE 1 Memor ia 100 [...] 9-13 TABLET BY l tablet 18:43: MOUTH [place] 00 THREE TIMES DAILY rOPINIRole 0 Yes TAKE 1 Memor ia 2 mg oral 9-13 TABLET BY l tablet 18:43: MOUTH Jeffery 00 THREE TIMES DAILY diazepam 10 Yes TAKE 1 [facility] mg oral 9-13 TABLET BY l tablet 18:43: MOUTH [place] 00 EVERY 8 HOURS NEEDED FOR ANXIETY . DO NOT EXCEED 3 PER 24 HOURS topiramate Yes TAKE 1 Memor ia 100 mg oral 9-13 TABLET BY l tablet 18:43: MOUTH IN Jeffery 00 THE MORNING AND 2 TABLETS IN THE EVENING celecoxib Yes TAKE 1 Memori a 200 mg oral 9-13 CAPSULE BY l capsule 18:43: MOUTH ONCE Herm justo DAILY baclofen 20 Yes TAKE 1 [facility] mg oral 9-13 TABLET BY l tablet 18:43: MOUTH [place] 00 THREE TIMES DAILY rOPINIRole Yes TAKE 1 Memor ia 2 mg oral 9-13 TABLET BY l tablet 18:43: MOUTH Jeffery 00 THREE TIMES DAILY diazepam 10 Yes TAKE 1 [facility] mg oral 9-13 TABLET BY l tablet 18:43: MOUTH Jeffery 00 EVERY 8 HOURS NEEDED FOR ANXIETY . DO NOT EXCEED 3 PER 24 HOURS topiramate Yes TAKE 1 Memor ia 100 mg oral 9-13 TABLET BY l tablet 18:43: MOUTH IN Jeffery 00 THE MORNING AND 2 TABLETS IN THE EVENING celecoxib Yes TAKE 1 Memori a 200 mg oral 9-13 CAPSULE BY l capsule 18:43: MOUTH ONCE Herm justo DAILY baclofen 20 Yes TAKE 1 [facility] mg oral 9-13 TABLET BY l tablet 18:43: MOUTH Jeffery 00 THREE TIMES DAILY rOPINIRole Yes TAKE 1 Memor ia 2 mg oral 9-13 TABLET BY l tablet 18:43: MOUTH Jeffery 00 THREE TIMES DAILY diazepam 10 Yes TAKE 1 [facility] mg oral 9-13 TABLET BY l tablet 18:43: MOUTH Jeffery 00 EVERY 8 HOURS NEEDED FOR ANXIETY . DO NOT EXCEED 3 PER 24 HOURS topiramate Yes TAKE 1 Memor ia 100 mg oral 9-13 TABLET BY l tablet 18:43: MOUTH IN [place] 00 THE MORNING AND 2 TABLETS IN THE EVENING celecoxib Yes TAKE 1 Memori a 200 mg oral 9-13 CAPSULE BY l capsule 18:43: MOUTH ONCE Herm justo DAILY baclofen 20 Yes TAKE 1 [facility] mg oral 9-13 TABLET BY l tablet 18:43: MOUTH Jeffery 00 THREE TIMES DAILY rOPINIRole Yes TAKE 1 Memor ia 2 mg oral 9-13 TABLET BY l tablet 18:43: MOUTH Jeffery 00 THREE TIMES DAILY diazepam 10 Yes TAKE 1 [facility] mg oral 9-13 TABLET BY l tablet 18:43: MOUTH [place] 00 EVERY 8 HOURS NEEDED FOR ANXIETY . DO NOT EXCEED 3 PER 24 HOURS topiramate Yes TAKE 1 Memor ia 100 mg oral 9-13 TABLET BY l tablet 18:43: MOUTH IN [place] 00 THE MORNING AND 2 TABLETS IN THE EVENING celecoxib Yes TAKE 1 Memori a 200 mg oral 9-13 CAPSULE BY l capsule 18:43: MOUTH ONCE Herm justo 00 DAILY baclofen 20 Yes TAKE 1 [facility]land mg oral 9-13 TABLET BY l tablet 18:43: MOUTH Jeffery 00 THREE TIMES DAILY rOPINIRole Yes TAKE 1 Memor ia 2 mg oral 9-13 TABLET BY l tablet 18:43: MOUTH Jeffery 00 THREE TIMES DAILY diazepam 10 Yes TAKE 1 [facility] mg oral 9-13 TABLET BY l tablet 18:43: MOUTH Jeffery 00 EVERY 8 HOURS NEEDED FOR ANXIETY . DO NOT EXCEED 3 PER 24 HOURS topiramate Yes TAKE 1 Memor ia 100 mg oral 9-13 TABLET BY l tablet 18:43: MOUTH IN [place] 00 THE MORNING AND 2 TABLETS IN THE EVENING celecoxib Yes TAKE 1 Memori a 200 mg oral 9-13 CAPSULE BY l capsule 18:43: MOUTH ONCE Herm justo 00 DAILY baclofen 20 Yes TAKE 1 [facility] mg oral 9-13 TABLET BY l tablet 18:43: MOUTH Jeffery 00 THREE TIMES DAILY rOPINIRole Yes TAKE 1 Memor ia 2 mg oral 9-13 TABLET BY l tablet 18:43: MOUTH [place] 00 THREE TIMES DAILY diazepam 10 Yes TAKE 1 [facility] mg oral 9-13 TABLET BY l tablet 18:43: MOUTH Jeffery 00 EVERY 8 HOURS NEEDED FOR ANXIETY . DO NOT EXCEED 3 PER 24 HOURS nitrofurant Yes 100 mg, Mem oria oin 9-13 PO, BID, # l 18:42: 14 cap, 0 Jeffery 00 Refill(s) nitrofurant 2-0 Yes 100 mg, Mem oria oin 9-13 PO, BID, # l 18:42: 14 cap, 0 Hubbard 00 Refill(s) nitrofurant 2021-0 Yes 100 mg, Mem oria oin 9-13 PO, BID, # l 18:42: 14 cap, 0 Jeffery 00 Refill(s) nitrofurant 2021-0 Yes 100 mg, Mem oria oin 9-13 PO, BID, # l 18:42: 14 cap, 0 Jeffery 00 Refill(s) nitrofurant 2021-0 Yes 100 mg, Mem oria oin 9-13 PO, BID, # l 18:42: 14 cap, 0 Jeffery 00 Refill(s) nitrofurant 2021-0 Yes 100 mg, Mem oria oin 9-13 PO, BID, # l 18:42: 14 cap, 0 Hubbard 00 Refill(s) nitrofurant 2021-0 Yes 100 mg, Mem oria oin 9-13 PO, BID, # l 18:42: 14 cap, 0 Jeffery 00 Refill(s) nitrofurant 2021-0 Yes 100 mg, Mem oria oin 9-13 PO, BID, # l 18:42: 14 cap, 0 [place] 00 Refill(s) omeprazole 2021-0 Yes PO, Daily, M emoria 913 0 l 18:41: Refill(s) [facility] omeprazole 2021-0 Yes PO, Daily, M emoria 913 0 l 18:41: Refill(s) [facility] omeprazole 2021-0 Yes PO, Daily, M emoria 9-13 0 l 18:41: Refill(s) [facility] omeprazole 2021-0 Yes PO, Daily, M emoria 9-13 0 l 18:41: Refill(s) [facility] omeprazole 2021-0 Yes PO, Daily, M emoria 9-13 0 l 18:41: Refill(s) [place] omeprazole 2-0 Yes PO, Daily, M emoria 9-13 0 l 18:41: Refill(s) [facility] omeprazole 2-0 Yes PO, Daily, M emoria 9-13 0 l 18:41: Refill(s) [place]ery 00 omeprazole Yes PO, Daily, M emoria 9-13 0 l 18:41: Refill(s) [place] 00 ondansetron Yes ALLOW ONE C HI [...] ON THE TONGUE EVERY 4 HOURS. ondansetron 2021- No ALLOW ONE [facility] (ZOFRAN-ODT 11-11 (1) TABLET L ukes ) 4 MG 00:00: 00:00 TO Medical disintegrat 00 :00 DISSOLVE Cent er ing tablet ON THE TONGUE EVERY 4 HOURS. ondansetron 2021- No ALLOW ONE [facility] (ZOFRAN-ODT 11-11 (1) TABLET L ukes ) 4 MG 00:00: 00:00 TO Medical disintegrat 00 :00 DISSOLVE Cent er ing tablet ON THE TONGUE EVERY 4 HOURS. ondansetron 2021- No ALLOW ONE [facility] (ZOFRAN-ODT 11-11 (1) TABLET L ukes ) 4 MG 00:00: 00:00 TO Medical disintegrat 00 :00 DISSOLVE Cent er ing tablet ON THE TONGUE EVERY 4 HOURS. ondansetron 2021- No ALLOW ONE [facility] (ZOFRAN-ODT 11-11 (1) TABLET L ukes ) 4 MG 00:00: 00:00 TO Medical disintegrat 00 :00 DISSOLVE Cent er ing tablet ON THE TONGUE EVERY 4 HOURS. ondansetron 2021- No ALLOW ONE [facility] (ZOFRAN-ODT 11-1128 (1) TABLET L ukes ) 4 MG 00:00: 00:00 TO Medical disintegrat 00 :00 DISSOLVE Cent er ing tablet ON THE TONGUE EVERY 4 HOURS. topiramate Yes Persistent TAKE [address] [facility] (TOPAMAX) 9-02 headaches TABLET BY [facility] 100 MG 00:00: MOUTH IN Medical tablet 00 THE Center MORNING AND 2 TABLETS IN THE EVENING topiramate 2021-0 Yes Persistent TAKE [address] [facility] (TOPAMAX) 9-02 headaches TABLET BY [facility] 100 MG 00:00: MOUTH IN Medical tablet 00 THE Center MORNING AND 2 TABLETS IN THE EVENING topiramate 2021-0 Yes Persistent TAKE [address] [facility] (TOPAMAX) 9-02 headaches TABLET BY [facility] 100 MG 00:00: MOUTH IN Medical tablet 00 THE Center MORNING AND 2 TABLETS IN THE EVENING topiramate 2021-0 Yes Persistent TAKE [address] [facility] (TOPAMAX) 9-02 headaches TABLET BY [facility] 100 MG 00:00: MOUTH IN Medical tablet 00 THE Center MORNING AND 2 TABLETS IN THE EVENING topiramate 2021-0 Yes Persistent TAKE [address] [facility] (TOPAMAX) 9-02 headaches TABLET BY [facility] 100 MG 00:00: MOUTH IN Medical tablet 00 THE Center MORNING AND 2 TABLETS IN THE EVENING topiramate 2021-0 Yes Persistent TAKE [address] [facility] (TOPAMAX) 9-02 headaches TABLET BY [facility] 100 MG 00:00: MOUTH IN Medical tablet 00 THE Center MORNING AND 2 TABLETS IN THE EVENING topiramate 2021-0 Yes Persistent TAKE [address] [facility] (TOPAMAX) 9-02 headaches TABLET BY [facility] 100 MG 00:00: MOUTH IN Medical tablet 00 THE Center MORNING AND 2 TABLETS IN THE EVENING diazePAM Yes Anxiety 10mg Take [address] [facility] (VALIUM) 10 - tablet (10 Shannen k[facility] MG tablet 00:00: mg total) Med ical 00 by mouth Center every 8 (eight) hours as needed for Anxiety. Max Daily Amount: 30 mg diazePAM Yes Anxiety 10mg Take [address] [facility] (VALIUM) 10 - tablet (10 Shannen kes MG tablet 00:00: mg total) Med ical 00 by mouth Center every 8 (eight) hours as needed for Anxiety. Max Daily Amount: 30 mg diazePAM 0 2021- No Anxiety 10mg Take [address] [facility] (VALIUM) 10 - 11-08 tablet (10 [facility] MG tablet 00:00: 00:00 mg total) Me dical 00 :00 by mouth Center every 8 (eight) hours as needed for Anxiety. Max Daily Amount: 30 mg diazePAM 2021- No Anxiety 10mg Take [address] [facility] (VALIUM) 10 10-14 tablet (10 [facility] MG tablet 00:00: 00:00 mg total) Me dical 00 :00 by mouth Center every 8 (eight) hours as needed for Anxiety. Max Daily Amount: 30 mg diazePAM 2021- No Anxiety 10mg Take [address] [facility] (VALIUM) 10 10-14 tablet (10 [facility] MG tablet 00:00: 00:00 mg total) Me dical 00 :00 by mouth Center every 8 (eight) hours as needed for Anxiety. Max Daily Amount: 30 mg diazePAM 2021- No Anxiety 10mg Take [address] [facility] (VALIUM) 10 10-14 tablet (10 [facility] MG tablet 00:00: 00:00 mg total) Me dical 00 :00 by mouth Center every 8 (eight) hours as needed for Anxiety. Max Daily Amount: 30 mg diazePAM 2021- No Anxiety 10mg Take [address] [facility] (VALIUM) 10 10-14 tablet (10 [facility] MG tablet 00:00: 00:00 mg total) Me dical 00 :00 by mouth Center every 8 (eight) hours as needed for Anxiety. Max Daily Amount: 30 mg diazePAM 2021- No TAKE [address] [facility] (VALIUM) 10 10-13 TABLET BY [facility]en k[facility] MG tablet 00:00: 00:00 MOUTH Medica l 00 :00 EVERY 8 Center HOURS NEEDED FOR ANXIETY . MAX 3 TABLETS PER DAY diazePAM 2021- No TAKE [address] [facility] (VALIUM) 10 10-13 TABLET BY Shannen kes MG tablet 00:00: [...] . MAX 3 TABLETS PER DAY diazePAM 2021-0 202- No TAKE [address] [facility] (VALIUM) 10 10-13 08-09 TABLET BY [facility]annen k[facility] MG tablet 00:00: 00:00 MOUTH Medica l 00 :00 EVERY 8 Center HOURS NEEDED FOR ANXIETY . MAX 3 TABLETS PER DAY diazePAM 2021-0 2022- No TAKE [address] [facility] (VALIUM) 10 10-13 08-09 TABLET BY Shannen kes MG tablet 00:00: 00:00 MOUTH Medica l 00 :00 EVERY 8 Center HOURS NEEDED FOR ANXIETY . MAX 3 TABLETS PER DAY estradioL 2021-0 2023- No [address] [facility] (ESTRACE) 10-09- vaginally [facility] 0.01 % (0.1 00:: 23:59 daily. Med ical mg/gram) 00 :00 [facility] vaginal cream estradioL 2021-0 2023- No [address] [facility] (ESTRACE) 10-09- vaginally [facility] 0.01 % (0.1 00:: 23:59 daily. Med ical mg/gram) 00 :00 [facility] vaginal cream estradioL 2021-0 2023- No [address] [facility] (ESTRACE) 10-09- vaginally [facility] 0.01 % (0.1 00:: 23:59 daily. Med ical mg/gram) 00 :00 [facility] vaginal cream estradioL 2021-0 2023- No [address] [facility] (ESTRACE) 10-09- vaginally [facility] 0.01 % (0.1 00:: 23:59 daily. Med ical mg/gram) 00 :00 [facility] vaginal cream estradioL 2-0 2023- No [address] [facility] (ESTRACE) 10-09-04 vaginally [facility] 0.01 % (0.1 00:: 23:59 daily. Med ical mg/gram) 00 :00 [facility] vaginal cream estradioL 2022-0 2023- No [address] [facility] (ESTRACE) 10-09-04 vaginally [facility] 0.01 % (0.1 00:: 23:59 daily. Med ical mg/gram) 00 :00 Center vaginal cream estradioL 2021-2022- No [address] [facility] (ESTRACE) 10-09 vaginally [facility] 0.01 % (0.1 00:00: 23:59 daily. Med ical mg/gram) 00 :00 Center vaginal cream conjugated 2021-2021- No Vaginal Apply pea [facility] estrogens 10-06 pain sized [facility] (Premarin) 00:00: 00:00 amount to M edical 0.625 00 :00 affected Center mg/gram area three vaginal times cream daily.. conjugated 2021-0 2021- No Vaginal Apply pea [facility] estrogens 10-06 pain sized [facility] (Premarin) 00:00: 00:00 amount to M edical 0.625 00 :00 affected Center mg/gram area three vaginal times cream daily.. conjugated 2021-0 2021- No Vaginal Apply pea [facility] estrogens 10-06 pain sized [facility] (Premarin) 00:00: 00:00 amount to M edical 0.625 00 :00 affected Center mg/gram area three vaginal times cream daily.. conjugated 2021-0 2021- No Vaginal Apply pea [facility] estrogens 10-06 pain sized [facility] (Premarin) 00:00: 00:00 amount to M edical 0.625 00 :00 affected Center mg/gram area three vaginal times cream daily.. conjugated 2021-0 2021- No Vaginal Apply pea [facility] estrogens 10-06 pain sized [facility] (Premarin) 00:00: 00:00 amount to M edical 0.625 00 :00 affected Center mg/gram area three vaginal times cream daily.. conjugated 2021-0 2021- No Vaginal Apply pea [facility] estrogens 10-06 pain sized [facility] (Premarin) 00:00: 00:00 amount to M edical 0.625 00 :00 affected Center mg/gram area three vaginal times cream daily.. nitrofurant 2021-0 Yes Neck pain 100mg Q.5D Take [address] [facility] oin, 7-19 capsule [facility] macrocrysta 00:00: (100 mg Med ical l-monohydra 00 total) by [facility], mouth 2 (MACROBID) (two) 100 MG times capsule daily. rOPINIRole 2021-0 Yes Restless 2mg Q.[id number] Take [address] [facility] (REQUIP) 2 7-19 leg [id number] tablet (2 [facility] tablet 00:00: syndrome 3D mg total) Medical 00 by mouth 3 Center (three) times daily. nitrofurant 2021-0 Yes Neck pain 100mg Q.5D Take [address] [facility] oin, 7-19 capsule [facility] macrocrysta 00:00: (100 mg Med ical l-monohydra 00 total) by [place] [facility], mouth 2 (MACROBID) (two) 100 MG times capsule daily. rOPINIRole 2021-0 Yes Restless 2mg Q.[id number] Take [address] [facility] (REQUIP) 2 7-19 leg [id number] tablet (2 [facility] tablet 00:00: syndrome 3D mg total) Medical 00 by mouth 3 Center (three) times daily. nitrofurant 2021-0 Yes Neck pain 100mg Q.5D Take [address] [facility] oin, 7-19 capsule [facility] macrocrysta 00:00: (100 mg Med ical l-monohydra 00 total) by [place] [facility], mouth 2 (MACROBID) (two) 100 MG times capsule daily. nitrofurant 2021-0 Yes Neck pain 100mg Q.5D Take [address] [facility] oin, 7-19 capsule [facility] macrocrysta 00:00: (100 mg Med ical l-monohydra 00 total) by [place] [facility], mouth 2 (MACROBID) (two) 100 MG times capsule daily. nitrofurant 2021-0 Yes Neck pain 100mg Q.5D Take [address] [facility] oin, 7-19 capsule [facility] macrocrysta 00:00: (100 mg Med ical l-monohydra 00 total) by [place] [facility], mouth 2 (MACROBID) (two) 100 MG times capsule daily. nitrofurant 2021-0 Yes Neck pain 100mg Q.5D Take [address] [facility] oin, 7-19 capsule [facility] macrocrysta 00:00: (100 mg Med ical l-monohydra 00 total) by [place] [facility], mouth 2 (MACROBID) (two) 100 MG times capsule daily. nitrofurant 2021-0 Yes Neck pain 100mg Q.5D Take [address] [facility] oin, 7-19 capsule [facility] macrocrysta 00:00: (100 mg Med ical l-monohydra 00 total) by [place] [facility] mouth 2 (MACROBID) (two) 100 MG times capsule daily. rOPINIRole 2021- No Restless 2mg Q.[id number] Take [address] [facility] (REQUIP) 2 - 10-28 leg [id number] tablet (2 [facility] tablet 00:00: 00:00 syndrome 3D mg total) Medical 00 :00 by mouth 3 Center (three) times daily. rOPINIRole 2021- No Restless 2mg Q.[id number] Take [address] [facility] (REQUIP) 2 - 10-28 leg [id number] tablet (2 [facility] tablet 00:00: 00:00 syndrome 3D mg total) Medical 00 :00 by mouth 3 Center (three) times daily. rOPINIRole 2021- No Restless 2mg Q.[id number] Take [address] [facility] (REQUIP) 2 - 10-28 leg [id number] tablet (2 [facility] tablet 00:00: 00:00 syndrome 3D mg total) Medical 00 :00 by mouth 3 Center (three) times daily. rOPINIRole 2021- No Restless 2mg Q.[id number] Take [address] [facility] (REQUIP) 2 7- 10-28 leg [id number] tablet (2 [facility] tablet 00:00: 00:00 syndrome 3D mg total) Medical 00 :00 by mouth 3 Center (three) times daily. rOPINIRole 2021- No Restless 2mg Q.[id number] Take [address] [facility] (REQUIP) 2 7- 10-28 leg [id number] tablet (2 [facility] tablet 00:00: 00:00 syndrome 3D mg total) Medical 00 :00 by mouth 3 Center (three) times daily. ciprofloxac 2021- No Dysuria 500mg Q.5D Take [address] [facility] in HCl 6-27 07-07 tablet [facility] (Cipro) 500 00:00: 23:59 (500 mg Me dical MG tablet 00 :00 total) by Cente r mouth 2 (two) times daily for 10 days. ciprofloxac 2021-2021- No Dysuria 500mg Q.5D Take [address] [facility] in HCl 6- 07-07 tablet [facility] (Cipro) 500 00:00: 23:59 (500 mg Me dical MG tablet 00 :00 total) by Cente r mouth 2 (two) times daily for 10 days. ciprofloxac 2021-0 2021- No Dysuria 500mg Q.5D Take [address] [facility] in HCl 6- 07-07 tablet [facility] (Cipro) 500 00:00: 23:59 (500 mg Me dical MG tablet 00 :00 total) by Cente r mouth 2 (two) times daily for 10 days. ciprofloxac 2021-2021- No Dysuria 500mg Q.5D Take [address] [facility] in HCl 6-01 10-07 tablet [facility] (Cipro) 500 00:00: 23:59 (500 mg Me dical MG tablet 00 :00 total) by Cente r mouth 2 (two) times daily for 10 days. ciprofloxac 2021- No Dysuria 500mg Q.5D Take [address] [facility] in HCl 6-01 10-07 tablet [facility] (Cipro) 500 00:00: 23:59 (500 mg Me dical MG tablet 00 :00 total) by Cente r mouth 2 (two) times daily for 10 days. ciprofloxac 2021- No Dysuria 500mg Q.5D Take [address] [facility] in HCl 6-01 10-07 tablet [facility] (Cipro) 500 00:00: 23:59 (500 mg Me dical MG tablet 00 :00 total) by Cente r mouth 2 (two) times daily for 10 days. morphine 2021-2021- No 5mg Take [address] [facility] (MSIR) 15 -28 08-23 by mouth [facility] tablet 12:00: 00:00 every 4 Medi chanell 52 :00 (four) Center hours as needed for Pain. morphine 2021-0 2021- No 5mg Take [address] [facility] (MSIR) 15 6- 06-23 by mouth [facility] tablet 12:00: 00:00 every 4 Medi chanell 52 :00 (four) Center hours as needed for Pain. morphine 2021-0 2021- No 5mg Take [address] [facility] (MSIR) 15 08-28-23 by mouth [facility] tablet 12:00: 00:00 every 4 Medi chanell 52 :00 (four) Center hours as needed for Pain. morphine 2021- No 5mg Take [address] [facility] (MSIR) 15 08-28-23 by mouth [facility] tablet 12:00: 00:00 every 4 Medi chanell 52 :00 (four) Center hours as needed for Pain. morphine 2021- No 5mg Take [address] [facility] (MSIR) 15 08-28- by mouth [facility] tablet 12:00: 00:00 every 4 Medi chanell 52 :00 (four) Center hours as needed for Pain. morphine 2021- No 5mg Take [address] [facility] (MSIR) 15 08-28 by mouth [facility] tablet 12:00: 00:00 every 4 Medi chanell 52 :00 (four) Center hours as needed for Pain. esomeprazol 2021- No [address] [facility] e (NEXIUM) 08-28- [facility] 40 MG 12:00: 00:00 Medical capsule 15 :00 [facility] esomeprazol 0 2021- No [address] [facility] e (NEXIUM) 08-28- [facility] 40 MG 12:00: 00:00 Medical capsule 15 :00 [facility] esomeprazol 2021-0 2021- No [address] [facility] (NEXIUM) 08-28- [facility] 40 MG 12:00: 00:00 Medical capsule 15 :00 [facility] esomeprazol 2021- No [address] [facility] (NEXIUM) 08-28- [facility] 40 MG 12:00: 00:00 Medical capsule 15 :00 [facility] esomeprazol 0 2021- No [address] [facility] (NEXIUM) 08-28- [facility] 40 MG 12:00: 00:00 Medical capsule 15 :00 [facility] esomeprazol 2021-0 2021- No [address] [facility] (NEXIUM) 08-28- [facility] 40 MG 12:00: 00:00 Medical capsule 15 :00 [facility] nitrofurant Yes 100mg Take [address] oin 6-23 mg by [facility] (MACRODANTI 11:08: mouth as Me dical N) 100 MG 55 needed. Center capsule amoxicillin 2-0 Yes 1{tbl} Q.[id number] Take [address] [facility] -clavulanat 6-23 [id number] tablet by [facility] 11:08: 3D mouth 3 Medical (AUGMENTIN) 55 (three) Cente r 500-125 mg times per tablet daily. nitrofurant 2021-0 Yes 100mg Take [address] oin 6-23 mg by [facility] (MACRODANTI 11:08: mouth as Me dical N) 100 MG 55 needed. Center capsule amoxicillin 2021-0 Yes 1{tbl} Q.[id number] Take [address] [facility] -clavulanat 6-23 [id number] tablet by [facility] e 11:08: 3D mouth 3 Medical (AUGMENTIN) 55 (three) Cente r 500-125 mg times per tablet daily. BIFIDOBACTE 2021-0 Yes Take by [facility] RIUM 6-23 mouth. [facility] INFANTIS 11:08: Medical (ALIGN 16 Center ORAL) BIFIDOBACTE 2-0 Yes Take by [facility] RIUM 6-23 mouth. [facility] INFANTIS 11:08: Medical (ALIGN 16 Center ORAL) sulfamethox 2021-0 Yes Dysuria 160mg{t Q.5D Take [address] [facility] azole-trime 6-23 rimetho tablet Anay[facility] es thoprim 00:00: prim} (160 mg of Med ical (BACTRIM 00 trimethopr Cente r DS) 800-160 im total) mg per by mouth 2 tablet (two) times daily. bromphenira 2021-0 Yes Cough 5mL Take [address] [facility] mine-pseudo 6-23 by mouth [facility] eph-DM 00:00: every 6 Medical 2- 00 (six) Center mg/5 mL hours as Syrp needed. sulfamethox 2021-0 Yes Dysuria 160mg{t Q.5D Take [address] [facility] azole-trime 6-23 rimetho tablet An[facility]eli es thoprim 00:00: prim} (160 mg of Med ical (BACTRIM 00 trimethopr Cente r DS) 800-160 im total) mg per by mouth 2 tablet (two) times daily. bromphenira 2021-0 Yes Cough 5mL Take [address] [facility] mine-pseudo 08-28 by mouth [facility] eph-DM 00:00: every 6 Medical 2 00 (six) Center mg/5 mL hours as Syrp needed. sulfamethox 2021-0 Yes Dysuria 160mg{t Q.5D Take [address] [facility] azole-trime 6-23 rimetho tablet Anayeli es thoprim 00:00: prim} (160 mg of Med ical (BACTRIM 00 trimethopr Cente r DS) 800-160 im total) mg per by mouth 2 tablet (two) times daily. sulfamethox 0 Yes Dysuria 160mg{t Q.5D Take [address] [facility] azole-trime 6-23 rimetho tablet An[facility]eli es thoprim 00:00: prim} (160 mg of Med ical (BACTRIM 00 trimethopr Cente r DS) 800-160 im total) mg per by mouth 2 tablet (two) times daily. sulfamethox 2021-0 Yes Dysuria 160mg{t Q.5D Take [address] [facility] azole-trime 6-23 rimetho tablet An[facility] es thoprim 00:00: prim} (160 mg of Med ical (BACTRIM 00 trimethopr Cente r DS) 800-160 im total) mg per by mouth 2 tablet (two) times daily. sulfamethox 2021-0 Yes Dysuria 160mg{t Q.5D Take [address] [facility] azole-trime 6-23 rimetho tablet [facility] es thoprim 00:00: prim} (160 mg of Med ical (BACTRIM 00 trimethopr Cente r DS) 800-160 im total) mg per by mouth 2 tablet (two) times daily. sulfamethox 2021-0 Yes Dysuria 160mg{t Q.5D Take [address] [facility] azole-trime 6-23 rimetho tablet Anayeli es thoprim 00:00: prim} (160 mg of Med ical (BACTRIM 00 trimethopr Cente r DS) 800-160 im total) mg per by mouth 2 tablet (two) times daily. omeprazole 2021-0 3- No GERD 20mg QD Take 1 [facility] [...] tablet 00 :00 by mouth Center daily. bromphenira 2021- No Cough 5mL Take [address] [facility] mine-pseudo 08-2815 by mouth Anayeli es eph-DM 00:00: 00:00 every 6 Medical 2-30-10 00 :00 (six) Center mg/5 mL hours as Syrp needed. bromphenira 2021- No Cough 5mL Take [address] [facility] mine-pseudo 08-28-15 by mouth Anayeli es eph-DM 00:00: 00:00 every 6 Medical 2- 00 :00 (six) Center mg/5 mL hours as Syrp needed. bromphenira 2021- No Cough 5mL Take [address] [facility] mine-pseudo 6-23 11-15 by mouth Anayeli es eph-DM 00:00: 00:00 every 6 Medical 2- 00 :00 (six) Center mg/5 mL hours as Syrp needed. bromphenira 2021- No Cough 5mL Take [address] [facility] mine-pseudo 6-23 11-15 by mouth Anayeli es eph-DM 00:00: 00:00 every 6 Medical 2 00 :00 (six) Center mg/5 mL hours as Syrp needed. bromphenira 2021- No Cough 5mL Take [address] [facility] mine-pseudo 6- 11-15 by mouth Anayeli es eph-DM 00:00: 00:00 every 6 Medical 2 00 :00 (six) Center mg/5 mL hours as Syrp needed. SUMAtriptan Yes Persistent TAKE ONE [facility] [...] al capsule 00 MOUTH Center DAILY. SUMAtriptan 2021- No Persistent TAKE ONE [facility] (IMITREX) 5-17 11-01 headaches (1) TABLET [facility] 100 MG 00:00: 00:00 (100 MG Medical tablet 00 :00 TOTAL) BY Center MOUTH 2 (TWO) TIMES DAILY NEEDED. SUMAtriptan 2021- No Persistent TAKE ONE [facility] (IMITREX) 07-22 headaches (1) TABLET [facility] 100 MG 00:00: 00:00 (100 MG Medical tablet 00 :00 TOTAL) BY Center MOUTH 2 (TWO) TIMES DAILY NEEDED. SUMAtriptan 2021- No Persistent TAKE ONE [facility] (IMITREX) 07-22 headaches (1) TABLET [facility] 100 MG 00:00: 00:00 (100 MG Medical tablet 00 :00 TOTAL) BY Center MOUTH 2 (TWO) TIMES DAILY NEEDED. SUMAtriptan 2021- No Persistent TAKE ONE [facility] (IMITREX) 07-22 headaches (1) TABLET [facility] 100 MG 00:00: 00:00 (100 MG Medical tablet 00 :00 TOTAL) BY Center MOUTH 2 (TWO) TIMES DAILY NEEDED. SUMAtriptan 2021- No Persistent TAKE ONE [facility] (IMITREX) 07-22 headaches (1) TABLET [facility] 100 MG 00:00: 00:00 (100 MG Medical tablet 00 :00 TOTAL) BY Center MOUTH 2 (TWO) TIMES DAILY NEEDED. celecoxib 2021- No TAKE ONE [facility] (CeleBREX) 07-22 (1) [facility] 200 MG 00:00: 00:00 CAPSULE BY [facility]i [facility] capsule 00 :00 MOUTH Center DAILY. celecoxib 2021- No TAKE ONE [facility] (CeleBREX) 07-22 (1) [facility] 200 MG 00:00: 00:00 CAPSULE BY Medi [facility] capsule 00 :00 MOUTH Center DAILY. celecoxib 2021- No TAKE ONE [facility] (CeleBREX) 07-22 (1) [facility] 200 MG 00:00: 00:00 CAPSULE BY Medi [facility] capsule 00 :00 MOUTH Center DAILY. celecoxib 2021- No TAKE ONE [facility] (CeleBREX) 07-22 (1) [facility] 200 MG 00:00: 00:00 CAPSULE BY Medi [facility] capsule 00 :00 MOUTH Center DAILY. celecoxib 2021- No TAKE ONE [facility] (CeleBREX) 07-22 (1) [facility] 200 MG 00:00: 00:00 CAPSULE BY Medi [facility] capsule 00 :00 MOUTH Center DAILY. topiramate 2021- No Persistent TAKE ONE [facility] (TOPAMAX) -05 14- headaches (1) [facility] 100 MG 00:00: 00:00 TABLET(S) Medic al tablet 00 :00 BY MOUTH Center EVERY MORNING AND 2 TABLETS IN THE EVENING. topiramate 2021- No Persistent TAKE ONE [facility] (TOPAMAX) 07-08 headaches (1) [facility] 100 MG 00:00: 00:00 TABLET(S) Medic al tablet 00 :00 BY MOUTH Center EVERY MORNING AND 2 TABLETS IN THE EVENING. topiramate 2021- No Persistent TAKE ONE [facility] (TOPAMAX) 07-08 headaches (1) [facility] 100 MG 00:00: 00:00 TABLET(S) Medic al tablet 00 :00 BY MOUTH Center EVERY MORNING AND 2 TABLETS IN THE EVENING. topiramate 2021- No Persistent TAKE ONE [facility] (TOPAMAX) -11-07 headaches (1) [facility] 100 MG 00:00: 00:00 TABLET(S) Medic al tablet 00 :00 BY MOUTH Center EVERY MORNING AND 2 TABLETS IN THE EVENING. topiramate 2021- No Persistent TAKE ONE [facility] (TOPAMAX) 07-08 headaches (1) [facility] 100 MG 00:00: 00:00 TABLET(S) Medic al tablet 00 :00 BY MOUTH Center EVERY MORNING AND 2 TABLETS IN THE EVENING. topiramate 2021- No Persistent TAKE ONE [facility] (TOPAMAX) 07-08 headaches (1) [facility] 100 MG 00:00: 00:00 TABLET(S) Medic al tablet 00 :00 BY MOUTH Center EVERY MORNING AND 2 TABLETS IN THE EVENING. topiramate 2021- No Persistent TAKE ONE [facility] (TOPAMAX) -11-07 headaches (1) [facility] 100 MG 00:00: [...] ANXIETY. MAX DAILY AMOUNT: 30 MG diazePAM 2022-0 2022- No 10mg TAKE [address] [facility] (VALIUM) 10 5-03 08-08 TABLET (10 L [facility]kes MG tablet 00:00: 00:00 MG TOTAL) Me dical 00 :00 BY MOUTH Center EVERY 8 (EIGHT) HOURS NEEDED FOR ANXIETY. MAX DAILY AMOUNT: 30 MG diazePAM 2022-0 2022- No 10mg TAKE [address] [facility] (VALIUM) 10 5-03 08-08 TABLET (10 L [facility] MG tablet 00:00: 00:00 MG TOTAL) Me dical 00 :00 BY MOUTH Center EVERY 8 (EIGHT) HOURS NEEDED FOR ANXIETY. MAX DAILY AMOUNT: 30 MG diazePAM 2022-0 2022- No 10mg TAKE [address] [facility] (VALIUM) 10 5-03 08-08 TABLET (10 L [facility] MG tablet 00:00: 00:00 MG TOTAL) Me dical 00 :00 BY MOUTH Center EVERY 8 (EIGHT) HOURS NEEDED FOR ANXIETY. MAX DAILY AMOUNT: 30 MG diazePAM 2022-0 2022- No 10mg TAKE [address] [facility] (VALIUM) 10 5-03 08-08 TABLET (10 L [facility] MG tablet 00:00: 00:00 MG TOTAL) Me dical 00 :00 BY MOUTH Center EVERY 8 (EIGHT) HOURS NEEDED FOR ANXIETY. MAX DAILY AMOUNT: 30 MG diazePAM 2022-0 2022- No 10mg TAKE [address] [facility] (VALIUM) 10 5-03 08-08 TABLET (10 L [facility] MG tablet 00:00: 00:00 MG TOTAL) Me dical 00 :00 BY MOUTH Center EVERY 8 (EIGHT) HOURS NEEDED FOR ANXIETY. MAX DAILY AMOUNT: 30 MG rOPINIRole 2022-0 2022- No TAKE ONE [facility] (REQUIP) 2 05-28-19 (1) [facility] tablet 00:00: 00:00 TABLET(S) Me dical 00 :00 BY MOUTH Center THREE TIMES A DAY. rOPINIRole 2022-0 2022- No TAKE ONE [facility] (REQUIP) 2 -27 09-19 (1) [facility] tablet 00:00: 00:00 TABLET(S) Me dical 00 :00 BY MOUTH Center THREE TIMES A DAY. rOPINIRole 2021- No TAKE ONE [facility] (REQUIP) 2 -27 09- (1) [facility] MG tablet 00:00: 00:00 TABLET(S) Me dical 00 :00 BY MOUTH Center THREE TIMES A DAY. rOPINIRole 2021- No TAKE ONE [facility] (REQUIP) 2 05-28- (1) [facility] tablet 00:00: 00:00 TABLET(S) Me dical 00 :00 BY MOUTH Center THREE TIMES A DAY. rOPINIRole 2021- No TAKE ONE [facility] (REQUIP) 2 05-28 (1) [facility] tablet 00:00: 00:00 TABLET(S) Me dical 00 :00 BY MOUTH Center THREE TIMES A DAY. rOPINIRole 2021- No TAKE ONE [facility] (REQUIP) 2 05-28 (1) [facility] tablet 00:00: 00:00 TABLET(S) Me dical 00 :00 BY MOUTH Center THREE TIMES A DAY. baclofen Yes [facility]KE ONE [facility] (LIORESAL) 3-15 (1) TABLET [facility] es 20 MG 00:00: (20 MG Medical tablet 00 TOTAL) BY Center MOUTH 3 (THREE) TIMES DAILY. baclofen Yes TAKE ONE [facility] (LIORESAL) 3-15 (1) TABLET [facility] es 20 MG 00:00: (20 MG Medical tablet 00 TOTAL) BY Center MOUTH 3 (THREE) TIMES DAILY. baclofen 2021- No TAKE ONE [facility] (LIORESAL) 3-15 - (1) TABLET Shannen kes 20 MG 00:00: 00:00 (20 MG Medical tablet 00 :00 TOTAL) BY [facility] MOUTH 3 (THREE) TIMES DAILY. baclofen 2021- No TAKE ONE [facility] (LIORESAL) 3-15 - (1) TABLET Shannen kes 20 MG 00:00: 00:00 (20 MG Medical tablet 00 :00 TOTAL) BY [facility] MOUTH 3 (THREE) TIMES DAILY. baclofen 2021- No TAKE ONE [facility] (LIORESAL) 3-15 - (1) TABLET Shannen kes 20 MG 00:00: 00:00 (20 MG Medical tablet 00 :00 TOTAL) BY [facility] MOUTH 3 (THREE) TIMES DAILY. baclofen 2021- No TAKE ONE [facility] (LIORESAL) 05-20 (1) TABLET Shannen kes 20 MG 00:00: 00:00 (20 MG Medical tablet 00 :00 TOTAL) BY [facility] MOUTH 3 (THREE) TIMES DAILY. baclofen 2021- No TAKE ONE [facility] (LIORESAL) 05-20 (1) TABLET Shannen kes 20 MG 00:00: 00:00 (20 MG Medical tablet 00 :00 TOTAL) BY [facility] MOUTH 3 (THREE) TIMES DAILY. sumatriptan Yes INJECT 0.[address] [facility] (IMITREX) 6 3-13 [facility] 00:00: SUBCUTANEO [facility]n 00 USLY DAILY Center injection NEEDED FOR 30 DAYS. sumatriptan Yes INJECT 0.[address] [facility] (IMITREX) 6 3-13 [facility]/0.5 mL 00:00: SUBCUTANEO [facility] 00 USLY DAILY Center injection NEEDED FOR 30 DAYS. sumatriptan 2021- No INJECT 0.[address] [facility] (IMITREX) 6 3-13 11-01 [facility]/0.5 mL 00:00: 00:00 SUBCUTANEO [facility] 00 :00 USLY DAILY Center injection NEEDED FOR 30 DAYS. sumatriptan 2021- No INJECT 0.[address] [facility] (IMITREX) 6 3-13 11-01 [facility]/0.5 mL 00:00: 00:00 SUBCUTANEO M ed[facility] Soln 00 :00 USLY DAILY Center injection NEEDED FOR 30 DAYS. sumatriptan 2021- No INJECT 0.[address] [facility] (IMITREX) 6 3-13 11-01 [facility](S) [facility]5 [facility] 00:00: 00:00 SUBCUTANEO M edical Soln 00 :00 USLY DAILY Center injection NEEDED FOR 30 DAYS. sumatriptan 2022-0 2022- No INJECT 0.[address] [facility] (IMITREX) 6 3-13 11-01 [facility] mg/0.5 mL 00:00: 00:00 SUBCUTANEO M edical Soln 00 :00 USLY DAILY Center injection NEEDED FOR 30 DAYS. sumatriptan 2021- No INJECT 0.[address] [facility] (IMITREX) 6 3-13 11-01 ML(S) [facility] mg/0.5 mL 00:00: 00:00 SUBCUTANEO [...] 4mg QD Take [address] [facility] ISolone 3-03 03-03 tablet (4 [facility] (MEDROL 00:00: 23:59 mg total) [facility] DOSEPACK) 4 00 :00 by mouth [facility] mg tablet daily follow package directions . methylPREDN 2022- No Acute URI 4mg QD Take [address] [facility] ISolone 3-03 03-03 tablet (4 [facility] (MEDROL 00:00: 23:59 mg total) [facility] DOSEPACK) 4 00 :00 [facility] mouth [facility] mg tablet daily follow package directions . methylPREDN 2021- No Acute URI 4mg QD Take [address] [facility] ISolone 3- 11-15 tablet (4 [facility] (MEDROL 00:00: 00:00 mg total) [facility] DOSEPACK) 4 00 :00 [facility] mouth [facility] mg tablet daily follow package directions . methylPREDN 2021- No Acute URI 4mg QD Take [address] [facility] ISolone 3-03 11-15 tablet (4 [facility] (MEDROL 00:00: 00:00 mg total) [facility] DOSEPACK) 4 00 :00 by mouth [facility] mg tablet daily follow package directions . methylPREDN 2021- No Acute URI 4mg QD Take [address] [facility] ISolone 05-08-15 tablet (4 [facility] (MEDROL 00:00: 00:00 mg total) [facility] DOSEPACK) 4 00 :00 by mouth [facility] mg tablet daily follow package directions . methylPREDN 2021- No Acute URI 4mg QD Take [address] [facility] ISolone 05-08-15 tablet (4 [facility] (MEDROL 00:00: 00:00 mg total) [facility] DOSEPACK) 4 00 :00 by mouth [facility] mg tablet daily follow package directions . methylPREDN 2021- No Acute URI 4mg QD Take [address] [facility] ISolone 05-0815 tablet (4 [facility] (MEDROL 00:00: 00:00 mg total) [facility] DOSEPACK) 4 00 :00 by mouth [facility] mg tablet daily follow package directions . AZITHROmyci 2021- No Acute URI Take [address] [facility] n 3-05 11- tablets [facility] (Zithromax) 00:00: 00:00 (500 mg) M edical 250 MG 00 :00 on Day 1, Center tablet followed by 1 tablet (250 mg) once daily on Days 2 through 5.. AZITHROmyci 2021- No Acute URI Take [address] [facility] n -05 11- tablets [facility] (Zithromax) 00:00: 00:00 (500 mg) M edical 250 MG 00 :00 on Day 1, Center tablet followed by 1 tablet (250 mg) once daily on Days 2 through 5.. AZITHROmyci 2021- No Acute URI Take [address] [facility] n -05 11- tablets [facility] (Zithromax) 00:00: 00:00 (500 mg) M edical 250 MG 00 :00 on Day 1, Center tablet followed by 1 tablet (250 mg) once daily on Days 2 through 5.. AZITHROmyci 2021- No Acute URI Take [address] [facility] n 3-05 11- tablets [facility] (Zithromax) 00:00: 00:00 (500 mg) M edical 250 MG 00 :00 on Day 1, Center tablet followed by 1 tablet (250 mg) once daily on Days 2 through 5.. AZITHROmyci 2021- No Acute URI Take [address] [facility] n 3-05 11- tablets [facility] (Zithromax) 00:00: 00:00 (500 mg) M edical 250 MG 00 :00 on Day 1, Center tablet followed by 1 tablet (250 mg) once daily on Days 2 through 5.. AZITHROmyci 2021- No Acute URI Take [address] [facility] n 3- tablets [facility] (Zithromax) 00:00: 00:00 (500 mg) [...] Anxiety. Max Daily Amount: 30 mg diazePAM 2-0 2- No 10mg Take [address] [facility] (VALIUM) 10 04-14 05-03 tablet (10 L [facility] MG tablet 00:00: 00:00 mg total) Me dical 00 :00 by mouth Center every 8 (eight) hours as needed for Anxiety. Max Daily Amount: 30 mg diazePAM 2-0 2- No 10mg Take [address] [facility] (VALIUM) 10 04-14 05-03 tablet (10 [facility] MG tablet 00:00: 00:00 mg total) Me dical 00 :00 by mouth Center every 8 (eight) hours as needed for Anxiety. Max Daily Amount: 30 mg diazePAM 2021-0 2021- No 10mg Take [address] [facility] (VALIUM) 10 04-14-03 tablet (10 L [facility] MG tablet 00:00: 00:00 mg total) Me dical 00 :00 by mouth Center every 8 (eight) hours as needed for Anxiety. Max Daily Amount: 30 mg diazePAM 2021-0 2021- No 10mg Take [address] [facility] (VALIUM) 10 04-14-03 tablet (10 L [facility] MG tablet 00:00: 00:00 mg total) Me dical 00 :00 by mouth Center every 8 (eight) hours as needed for Anxiety. Max Daily Amount: 30 mg furosemide 2021-0 2021- No 20mg QD Take [address] [facility] (LASIX) 20 04-07-02 tablet (20 Shannen kes MG tablet 00:00: 23:59 mg total) Me dical 00 :00 by mouth Center daily for 30 days. furosemide 2021-0 2021- No 20mg QD Take [address] [facility] (LASIX) 20 04-07-02 tablet (20 Shannen kes MG tablet 00:00: 23:59 mg total) Me dical 00 :00 by mouth Center daily for 30 days. lidocaine 2021-0 Yes APPLY ONE [facility] (LIDODERM) 1-27 (1) PATCH [facility] 5 % patch 00:00: TO SKIN Medic al 00 FOR 12 Center HOURS OVER AFFECTED AREA. lidocaine 2021-0 Yes APPLY ONE [facility] (LIDODERM) 1-27 (1) PATCH [facility] 5 % patch 00:00: TO SKIN Medic al 00 FOR 12 Center HOURS OVER AFFECTED AREA. lidocaine 2021- No APPLY ONE [facility] (LIDODERM) 04-03 10- (1) PATCH Anayeli es 5 % patch 00:00: 00:00 TO SKIN [facility] 00 :00 FOR 12 Center HOURS OVER AFFECTED AREA. lidocaine 2021- No APPLY ONE [facility] (LIDODERM) 04-03 10-28 (1) PATCH Anayeli es 5 % patch 00:00: 00:00 TO SKIN [facility] 00 :00 FOR 12 Center HOURS OVER AFFECTED AREA. lidocaine 2021- No APPLY ONE [facility] (LIDODERM) 04-03 10-28 (1) PATCH Anayeli es 5 % patch 00:00: 00:00 TO SKIN [facility] 00 :00 FOR 12 Center HOURS OVER AFFECTED AREA. lidocaine 2021- No APPLY ONE [facility] (LIDODERM) 04-03 (1) PATCH Anayeli es 5 % patch 00:00: 00:00 TO SKIN [facility]i [facility] 00 :00 FOR 12 Center HOURS OVER AFFECTED AREA. lidocaine 2021- No APPLY ONE [facility] (LIDODERM) 04-03 (1) PATCH Anayeli es 5 % patch 00:00: 00:00 TO SKIN [facility] 00 :00 FOR 12 Center HOURS OVER AFFECTED AREA. nitrofurant 2021- No Neck pain 100mg Q.5D TAKE [address] [facility] oin, 04-01- CAPSULE [facility] macrocrysta 00:00: 00:00 (100 MG Me dical l-monohydra 00 :00 TOTAL) BY [facility] te, MOUTH 2 (MACROBID) (TWO) 100 MG TIMES capsule DAILY. nitrofurant 2021- No Neck pain 100mg Q.5D TAKE [address] [facility] oin, 04-01-19 CAPSULE [facility] macrocrysta 00:00: 00:00 (100 MG Me dical l-monohydra 00 :00 TOTAL) BY [place] [facility] te, MOUTH 2 (MACROBID) (TWO) 100 MG TIMES capsule DAILY. nitrofurant 2021- No Neck pain 100mg Q.5D TAKE [address] [facility] oin, 04-01-19 CAPSULE [facility] macrocrysta 00:00: 00:00 (100 MG Me dical l-monohydra 00 :00 TOTAL) BY [place] ter te, MOUTH 2 (MACROBID) (TWO) 100 MG TIMES capsule DAILY. nitrofurant 2021- No Neck pain 100mg Q.5D TAKE [address] [facility] oin, 04-01 CAPSULE [facility] macrocrysta 00:00: 00:00 (100 MG Me dical l-monohydra 00 :00 TOTAL) BY Ekn ter te, MOUTH 2 (MACROBID) (TWO) 100 MG TIMES capsule DAILY. nitrofurant 2021- No Neck pain 100mg Q.5D TAKE [address] [facility] oin, 04-01 CAPSULE [facility] macrocrysta 00:00: 00:00 (100 MG Me dical l-monohydra 00 :00 TOTAL) BY [place] ter te, MOUTH 2 (MACROBID) (TWO) 100 MG TIMES capsule DAILY. nitrofurant 2021- No Neck pain 100mg Q.5D TAKE [address] [facility] oin, 04-01 CAPSULE [facility] macrocrysta 00:00: 00:00 (100 MG Me dical l-monohydra 00 :00 TOTAL) BY [facility] ter te, MOUTH 2 (MACROBID) (TWO) 100 MG TIMES capsule DAILY. Toradol No Notes: Memoria 1-24 "Restricte l 16:22: d: No more Hubbard 00 than 5 days of therapy from any route of administra tion." Toradol No Notes: [facility] 1-24 "Restricte l 16:22: d: No more Jeffery 00 than 5 days of therapy from any route of administra tion." Toradol No Notes: Memoria 1-24 "Restricte l 16:22: d: No more Jeffery 00 than 5 days of therapy from any route of administra tion." Toradol No Notes: Memoria 1-24 "Restricte l 16:22: d: No more Hubbard 00 than 5 days of therapy from any route of administra tion." Toradol No Notes: Memoria 1-24 "Restricte l 16:22: d: No more Jeffery 00 than 5 days of therapy from any route of administra tion." Toradol No Notes: [facility]oria 1-24 "Restricte l 16:22: d: No more Jeffery 00 than 5 days of therapy from any route of administra tion." Toradol No Notes: Memoria 1-24 "Restricte l 16:22: d: No more Jeffery 00 than 5 days of therapy from any route of administra tion." Toradol No Notes: [facility] 1-24 "Restricte l 16:22: d: No more Jeffery 00 than 5 days of therapy from any route of administra tion." Saline Lock No 20 mL, Raúl holland Flush 1-24 Soln, IV l 16:04: Push, As Hubbard 00 Indicated PRN for flush, first dose 03/31/21 10:04: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 Labetalol No 60, SBP Mem[facility] ia 1-24 Hold l 16:04: Parameter: Jeffery 00 less than 90 mmHg, HR Hold Parameter: less than 5... Hydralazine No 100, if Mem oria 1-24 HR<60 l 16:04: and/or Hubbard 00 labetalol 25mg reached., SBP Hold Parameter: less than 90 mmHg Demerol HCl No 12.5 mg = M emoria 1-24 0.5 mL, l 16:04: Injection, Hubbard 00 IV Push, q5min PRN for shivers, order duration: 2 doses, first dose 03/31/21 10:04: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, stop date Limited # of times Morphine No 2.5 mg = Memor ia 1-24 0.63 mL, l 16:04: Injection, Jeffery 00 IV Push, q5min PRN for Pain Mild (1-3), order duration: 4 doses, first dose 03/31/21 10:04: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, stop date Limited # of times, Max dose 10mg; If pain still unrelieved notify Anesthesio logist Dilaudid No 0.5 mg = Mem[facility] ia 1-24 0.5 mL, l 16:04: Injection, Hubbard 00 IV Push, q5min PRN for Pain Moderate (4-6), order duration: 4 doses, first dose 03/31/21 10:04: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 If pain still unrelieved , notify Anesthesio logist Fentanyl No 50 mcg = 1 [facility] 1-24 mL, l 16:04: Injection, Hubbard 00 IV Push, q5min PRN for pain severe (7-10), order duration: 2 doses, first dose 03/31/21 10:04: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, stop date Limited # of times, if pain still unrelieved after second dose, notify Anesthesio logist Ondansetron No 4 mg = 2 Me moria 1-24 mL, l 16:04: Injection, Hubbard 00 IV Push, q15min PRN for nausea/vom iting, order duration: 2 doses, first dose 03/31/21 10:04: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, stop date Limited # of times promethazin No 12.5 mg, Me moria e IVPB 1-24 Injection, l 16:04: IV Jeffery 00 Piggyback, Once PRN for severe nausea, infuse over 15 minutes, first dose 03/31/21 10:04: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 Diphenhydra No 12.5 mg = M emoria mine -24 0.25 mL, l 16:04: Injection, Hubbard 00 IV Push, q15min PRN for allergy symptoms, order duration: 2 doses, first dose 03/31/21 10:04: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, stop date Limited # of times Saline Lock No 20 mL, Raúl holland Flush -24 Soln, IV l 16:04: Push, As Hubbard 00 Indicated PRN for flush, first dose 03/31/21 10:04: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 Labetalol No 60, SBP Memor ia 1-24 Hold l 16:04: Parameter: Jeffery 00 less than 90 mmHg, HR Hold Parameter: less than 5... Hydralazine No 100, if Mem oria 1-24 HR<60 l 16:04: and/or labetalol 25mg reached., SBP Hold Parameter: less than 90 mmHg Demerol HCl No 12.5 mg = M emoria 1-24 0.5 mL, l 16:04: Injection, Jeffery 00 IV Push, q5min PRN for shivers, order duration: 2 doses, first dose 03/31/21 10:04: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, stop date Limited # of times Morphine No 2.5 mg = Memor ia 1-24 0.63 mL, l 16:04: Injection, Jeffery 00 IV Push, q5min PRN for Pain Mild (1-3), order duration: 4 doses, first dose 03/31/21 10:04: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, stop date Limited # of times, Max dose 10mg; If pain still unrelieved notify Anesthesio logist Dilaudid No 0.5 mg = Mem[facility] ia 1-24 0.5 mL, l 16:04: Injection, Jeffery 00 IV Push, q5min PRN for Pain Moderate (4-6), order duration: 4 doses, first dose 03/31/21 10:04: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 If pain still unrelieved , notify Anesthesio logist Fentanyl No 50 mcg = 1 Mem [facility]ria 1-24 mL, l 16:04: Injection, Hubbard 00 IV Push, q5min PRN for pain severe (7-10), order duration: 2 doses, first dose 03/31/21 10:04: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, stop date Limited # of times, if pain still unrelieved after second dose, notify Anesthesio logist Ondansetron No 4 mg = 2 Me moria 1-24 mL, l 16:04: Injection, Jeffery 00 IV Push, q15min PRN for nausea/vom iting, order duration: 2 doses, first dose 03/31/21 10:04: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, stop date Limited # of times promethazin No 12.5 mg, Me moria e IVPB 1-24 Injection, l 16:04: IV Hubbard 00 Piggyback, Once PRN for severe nausea, infuse over 15 minutes, first dose 03/31/21 10:04: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 Diphenhydra No 12.5 mg = M emoria mine 1-24 0.25 mL, l 16:04: Injection, Jeffery 00 IV Push, q15min PRN for allergy symptoms, order duration: 2 doses, first dose 03/31/21 10:04: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, stop date Limited # of times Saline Lock No 20 mL, Raúl holland Flush 1-24 Soln, IV l 16:04: Push, As Hubbard 00 Indicated PRN for flush, first dose 03/31/21 10:04: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 Labetalol No 60, SBP Mem[facility] ia 1-24 Hold l 16:04: Parameter: Hubbard 00 less than 90 mmHg, HR Hold Parameter: less than 5... Hydralazine No 100, if Mem oria 1-24 HR<60 l 16:04: and/or Hubbard labetalol 25mg reached., SBP Hold Parameter: less than 90 mmHg Demerol HCl No 12.5 mg = M emoria 1-24 0.5 mL, l 16:04: Injection, Jeffery 00 IV Push, q5min PRN for shivers, order duration: 2 doses, first dose 03/31/21 10:04: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, stop date Limited # of times Morphine No 2.5 mg = Mem[facility] ia 1-24 0.63 mL, l 16:04: Injection, Jeffery 00 IV Push, q5min PRN for Pain Mild (1-3), order duration: 4 doses, first dose 03/31/21 10:04: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, stop date Limited # of times, Max dose 10mg; If pain still unrelieved notify Anesthesio logist Dilaudid No 0.5 mg = Memor ia 1-24 0.5 mL, l 16:04: Injection, Hubbard 00 IV Push, q5min PRN for Pain Moderate (4-6), order duration: 4 doses, first dose 03/31/21 10:04: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 If pain still unrelieved , notify Anesthesio logist Fentanyl No 50 mcg = 1 Mem oria 1-24 mL, l 16:04: Injection, Hubbard 00 IV Push, q5min PRN for pain severe (7-10), order duration: 2 doses, first dose 03/31/21 10:04: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, stop date Limited # of times, if pain still unrelieved after second dose, notify Anesthesio logist Ondansetron No 4 mg = 2 Me moria 1-24 mL, l 16:04: Injection, Hubbard 00 IV Push, q15min PRN for nausea/vom iting, order duration: 2 doses, first dose 03/31/21 10:04: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, stop date Limited # of times promethazin No 12.5 mg, Me moria e IVPB 1-24 Injection, l 16:04: IV Jeffery 00 Piggyback, Once PRN for severe nausea, infuse over 15 minutes, first dose 03/31/21 10:04: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 Diphenhydra No 12.5 mg = M emoria mine 1-24 0.25 mL, l 16:04: Injection, Jeffery 00 IV Push, q15min PRN for allergy symptoms, order duration: 2 doses, first dose 03/31/21 10:04: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, stop date Limited # of times Saline Lock No 20 mL, Raúl holland Flush 1-24 Soln, IV l 16:04: Push, As Hubbard 00 Indicated PRN for flush, first dose 03/31/21 10:04: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 Labetalol No 60, SBP Memor ia 1-24 Hold l 16:04: Parameter: Jeffery 00 less than 90 mmHg, HR Hold Parameter: less than 5... Hydralazine No 100, if Mem oria 1-24 HR<60 l 16:04: and/or Jeffery 00 labetalol 25mg reached., SBP Hold Parameter: less than 90 mmHg Demerol HCl No 12.5 mg = M emoria 1-24 0.5 mL, l 16:04: Injection, Jeffery 00 IV Push, q5min PRN for shivers, order duration: 2 doses, first dose 03/31/21 10:04: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, stop date Limited # of times Morphine 0 No 2.5 mg = Memor ia 1-24 0.63 mL, l 16:04: Injection, Hubbard 00 IV Push, q5min PRN for Pain Mild (1-3), order duration: 4 doses, first dose 03/31/21 10:04: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, stop date Limited # of times, Max dose 10mg; If pain still unrelieved notify Anesthesio logist Dilaudid 0 No 0.5 mg = Memor ia 1-24 0.5 mL, l 16:04: Injection, Hubbard 00 IV Push, q5min PRN for Pain Moderate (4-6), order duration: 4 doses, first dose 03/31/21 10:04: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 If pain still unrelieved , notify Anesthesio logist Fentanyl No 50 mcg = 1 Mem oria 1-24 mL, l 16:04: Injection, Jeffery 00 IV Push, q5min PRN for pain severe (7-10), order duration: 2 doses, first dose 03/31/21 10:04: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, stop date Limited # of times, if pain still unrelieved after second dose, notify Anesthesio logist Ondansetron 0 No 4 mg = 2 Me moria 1-24 mL, l 16:04: Injection, IV Push, q15min PRN for nausea/vom iting, order duration: 2 doses, first dose 03/31/21 10:04: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, stop date Limited # of times promethazin 0 No 12.5 mg, Me moria e IVPB 1-24 Injection, l 16:04: IV Hubbard 00 Piggyback, Once PRN for severe nausea, infuse over 15 minutes, first dose 03/31/21 10:04: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 Diphenhydra 0 No 12.5 mg = M emoria mine 1-24 0.25 mL, l 16:04: Injection, Hubbard 00 IV Push, q15min PRN for allergy symptoms, order duration: 2 doses, first dose 03/31/21 10:04: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, stop date Limited # of times Saline Lock 2021-0 No 20 mL, Raúl holland Flush 1-24 Soln, IV l 16:04: Push, As Jeffery 00 Indicated PRN for flush, first dose 03/31/21 10:04: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 Labetalol No 60, SBP Memor ia 1-24 Hold l 16:04: Parameter: Hubbard 00 less than 90 mmHg, HR Hold Parameter: less than 5... Hydralazine No 100, if Mem oria 1-24 HR<60 l 16:04: and/or Jeffery 00 labetalol 25mg reached., SBP Hold Parameter: less than 90 mmHg Demerol HCl No 12.5 mg = M emoria 1-24 0.5 mL, l 16:04: Injection, Jeffery 00 IV Push, q5min PRN for shivers, order duration: 2 doses, first dose 03/31/21 10:04: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, stop date Limited # of times Morphine No 2.5 mg = Memor ia 1-24 0.63 mL, l 16:04: Injection, Jeffery 00 IV Push, q5min PRN for Pain Mild (1-3), order duration: 4 doses, first dose 03/31/21 10:04: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, stop date Limited # of times, Max dose 10mg; If pain still unrelieved notify Anesthesio logist Dilaudid No 0.5 mg = Memor ia 1-24 0.5 mL, l 16:04: Injection, Jeffery 00 IV Push, q5min PRN for Pain Moderate (4-6), order duration: 4 doses, first dose 03/31/21 10:04: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 If pain still unrelieved , notify Anesthesio logist Fentanyl No 50 mcg = 1 Mem oria 1-24 mL, l 16:04: Injection, Hubbard 00 IV Push, q5min PRN for pain severe (7-10), order duration: 2 doses, first dose 03/31/21 10:04: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, stop date Limited # of times, if pain still unrelieved after second dose, notify Anesthesio logist Ondansetron No 4 mg = 2 Me moria 1-24 mL, l 16:04: Injection, Jeffery 00 IV Push, q15min PRN for nausea/vom iting, order duration: 2 doses, first dose 03/31/21 10:04: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, stop date Limited # of times promethazin No 12.5 mg, Me moria e IVPB 1-24 Injection, l 16:04: IV Hubbard 00 Piggyback, Once PRN for severe nausea, infuse over 15 minutes, first dose 03/31/21 10:04: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 Diphenhydra No 12.5 mg = M emoria mine 1-24 0.25 mL, l 16:04: Injection, Hubbard 00 IV Push, q15min PRN for allergy symptoms, order duration: 2 doses, first dose 03/31/21 10:04: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, stop date Limited # of times Saline Lock No 20 mL, Raúl holland Flush 1-24 Soln, IV l 16:04: Push, As Jeffery 00 Indicated PRN for flush, first dose 03/31/21 10:04: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 Labetalol No 60, SBP Memor ia 1-24 Hold l 16:04: Parameter: Hubbard 00 less than 90 mmHg, HR Hold Parameter: less than 5... Hydralazine No 100, if Mem oria 1-24 HR<60 l 16:04: and/or Hubbard 00 labetalol 25mg reached., SBP Hold Parameter: less than 90 mmHg Demerol HCl No 12.5 mg = M emoria 1-24 0.5 mL, l 16:04: Injection, Jeffery 00 IV Push, q5min PRN for shivers, order duration: 2 doses, first dose 03/31/21 10:04: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, stop date Limited # of times Morphine No 2.5 mg = Memor ia 1-24 0.63 mL, l 16:04: Injection, Jeffery 00 IV Push, q5min PRN for Pain Mild (1-3), order duration: 4 doses, first dose 03/31/21 10:04: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, stop date Limited # of times, Max dose 10mg; If pain still unrelieved notify Anesthesio logist Dilaudid No 0.5 mg = Memor ia 1-24 0.5 mL, l 16:04: Injection, Jeffery 00 IV Push, q5min PRN for Pain Moderate (4-6), order duration: 4 doses, first dose 03/31/21 10:04: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 If pain still unrelieved , notify Anesthesio logist Fentanyl No 50 mcg = 1 Mem oria 1-24 mL, l 16:04: Injection, Hubbard 00 IV Push, q5min PRN for pain severe (7-10), order duration: 2 doses, first dose 03/31/21 10:04: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, stop date Limited # of times, if pain still unrelieved after second dose, notify Anesthesio logist Ondansetron No 4 mg = 2 Me moria 1-24 mL, l 16:04: Injection, Hubbard 00 IV Push, q15min PRN for nausea/vom iting, order duration: 2 doses, first dose 03/31/21 10:04: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, stop date Limited # of times promethazin No 12.5 mg, Me moria e IVPB 1-24 Injection, l 16:04: IV Hubbard 00 Piggyback, Once PRN for severe nausea, infuse over 15 minutes, first dose 03/31/21 10:04: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 Diphenhydra No 12.5 mg = M emoria mine 1-24 0.25 mL, l 16:04: Injection, Jeffery 00 IV Push, q15min PRN for allergy symptoms, order duration: 2 doses, first dose 03/31/21 10:04: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, stop date Limited # of times Saline Lock No 20 mL, Raúl holland Flush 1-24 Soln, IV l 16:04: Push, As Hubbard 00 Indicated PRN for flush, first dose 03/31/21 10:04: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 Labetalol No 60, SBP Memor ia 1-24 Hold l 16:04: Parameter: Hubbard 00 less than 90 mmHg, HR Hold Parameter: less than 5... Hydralazine No 100, if Mem oria 1-24 HR<60 l 16:04: and/or labetalol 25mg reached., SBP Hold Parameter: less than 90 mmHg Demerol HCl No 12.5 mg = M emoria 1-24 0.5 mL, l 16:04: Injection, Jeffery 00 IV Push, q5min PRN for shivers, order duration: 2 doses, first dose 03/31/21 10:04: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, stop date Limited # of times Morphine No 2.5 mg = Memor ia 1-24 0.63 mL, l 16:04: Injection, Hubbard 00 IV Push, q5min PRN for Pain Mild (1-3), order duration: 4 doses, first dose 03/31/21 10:04: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, stop date Limited # of times, Max dose 10mg; If pain still unrelieved notify Anesthesio logist Dilaudid No 0.5 mg = Memor ia 1-24 0.5 mL, l 16:04: Injection, Jeffery 00 IV Push, q5min PRN for Pain Moderate (4-6), order duration: 4 doses, first dose 03/31/21 10:04: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 If pain still unrelieved , notify Anesthesio logist Fentanyl No 50 mcg = 1 Mem oria 1-24 mL, l 16:04: Injection, Jeffery 00 IV Push, q5min PRN for pain severe (7-10), order duration: 2 doses, first dose 03/31/21 10:04: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, stop date Limited # of times, if pain still unrelieved after second dose, notify Anesthesio logist Ondansetron No 4 mg = 2 Me moria 1-24 mL, l 16:04: Injection, Jeffery 00 IV Push, q15min PRN for nausea/vom iting, order duration: 2 doses, first dose 03/31/21 10:04: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, stop date Limited # of times promethazin No 12.5 mg, Me moria e IVPB 1-24 Injection, l 16:04: IV Hubbard 00 Piggyback, Once PRN for severe nausea, infuse over 15 minutes, first dose 03/31/21 10:04: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 Diphenhydra 2022-0 No 12.5 mg = M emoria mine 1-24 0.25 mL, l 16:04: Injection, Jeffery 00 IV Push, q15min PRN for allergy symptoms, order duration: 2 doses, first dose 03/31/21 10:04: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, stop date Limited # of times Saline Lock No 20 mL, Raúl holland Flush 1-24 Soln, IV l 16:04: Push, As Hubbard 00 Indicated PRN for flush, first dose 03/31/21 10:04: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 Labetalol No 60, SBP Memor ia 1-24 Hold l 16:04: Parameter: Hubbard 00 less than 90 mmHg, HR Hold Parameter: less than 5... Hydralazine No 100, if Mem oria 1-24 HR<60 l 16:04: and/or Jeffery 00 labetalol 25mg reached., SBP Hold Parameter: less than 90 mmHg Demerol HCl No 12.5 mg = M emoria 1-24 0.5 mL, l 16:04: Injection, Hubbard 00 IV Push, q5min PRN for shivers, order duration: 2 doses, first dose 03/31/21 10:04: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, stop date Limited # of times Morphine No 2.5 mg = Memor ia 1-24 0.63 mL, l 16:04: Injection, Hubbard 00 IV Push, q5min PRN for Pain Mild (1-3), order duration: 4 doses, first dose 03/31/21 10:04: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, stop date Limited # of times, Max dose 10mg; If pain still unrelieved notify Anesthesio logist Dilaudid No 0.5 mg = Memor ia 1-24 0.5 mL, l 16:04: Injection, Jeffery 00 IV Push, q5min PRN for Pain Moderate (4-6), order duration: 4 doses, first dose 03/31/21 10:04: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 If pain still unrelieved , notify Anesthesio logist Fentanyl No 50 mcg = 1 Mem oria 1-24 mL, l 16:04: Injection, Jeffery 00 IV Push, q5min PRN for pain severe (7-10), order duration: 2 doses, first dose 03/31/21 10:04: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, stop date Limited # of times, if pain still unrelieved after second dose, notify Anesthesio logist Ondansetron 2-0 No 4 mg = 2 Me moria 1-24 mL, l 16:04: Injection, Jeffery 00 IV Push, q15min PRN for nausea/vom iting, order duration: 2 doses, first dose 03/31/21 10:04: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, stop date Limited # of times promethazin 2-0 No 12.5 mg, Me moria e IVPB 1-24 Injection, l 16:04: IV Hubbard 00 Piggyback, Once PRN for severe nausea, infuse over 15 minutes, first dose 03/31/21 10:04: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 Diphenhydra 2-0 No 12.5 mg = M emoria mine 1-24 0.25 mL, l 16:04: Injection, Jeffery 00 IV Push, q15min PRN for allergy symptoms, order duration: 2 doses, first dose 03/31/21 10:04: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, stop date Limited # of times Lidocaine 2-0 No 5 mg = 0.5 Me moria pf IV start 1-24 mL, l 0.5mL 16:00: Injection, Delroy n [TOPS] 00 Subcutaneo us, Once, first dose 03/31/21 10:00: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, stop date 03/31/21 10:00: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, For IV Start Lidocaine 2-0 No 5 mg = 0.5 Me moria pf IV start 1-24 mL, l 0.5mL 16:00: Injection, Delroy n [TOPS] 00 Subcutaneo us, Once, first dose 03/31/21 10:00: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, stop date 03/31/21 10:00: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, For IV Start Lidocaine 2-0 No 5 mg = 0.5 Me moria pf IV start 1-24 mL, l 0.5mL 16:00: Injection, Delroy n [TOPS] 00 Subcutaneo us, Once, first dose 03/31/21 10:00: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, stop date 03/31/21 10:00: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, For IV Start Lidocaine 2-0 No 5 mg = 0.5 Me moria pf IV start 1-24 mL, l 0.5mL 16:00: Injection, Delroy alegre [TOPS] 00 Subcutaneo us, Once, first dose 03/31/21 10:00: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, stop date 03/31/21 10:00: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, For IV Start Lidocaine 2-0 No 5 mg = 0.5 Me moria pf IV start 1-24 mL, l 0.5mL 16:00: Injection, Delroy alegre [TOPS] Subcutaneo us, Once, first dose 03/31/21 10:00: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, stop date 03/31/21 10:00: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, For IV Start Lidocaine 2-0 No 5 mg = 0.5 Me moria pf IV start 1-24 mL, l 0.5mL 16:00: Injection, Delroy alegre [TOPS] Subcutaneo us, Once, first dose 03/31/21 10:00: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, stop date 03/31/21 10:00: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, For IV Start Lidocaine 2-0 No 5 mg = 0.5 Me moria pf IV start 1-24 mL, l 0.5mL 16:00: Injection, Delroy alegre [TOPS] Subcutaneo us, Once, first dose 03/31/21 10:00: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, stop date 03/31/21 10:00: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, For IV Start Lidocaine 2-0 No 5 mg = 0.5 Me moria pf IV start 1-24 mL, l 0.5mL 16:00: Injection, Delroy alegre [TOPS] Subcutaneo us, Once, first dose 03/31/21 10:00: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, stop date 03/31/21 10:00: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, For IV Start Lactated 2-0 No IV, start Raúl holland Ringers 1-24 date l Injection 15:55: 03/31/21 Herm justo 00 9:55: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, stop date 03/31/21 9:55: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 Lactated 2-0 No IV, start Raúl holland Ringers 1-24 date l Injection 15:55: 03/31/21 Herm justo 00 9:55: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, stop date 03/31/21 9:55: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 Lactated 2022-0 No IV, start Raúl holland Ringers 1-24 date l Injection 15:55: 03/31/21 Herm justo 00 9:55: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, stop date 03/31/21 9:55: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 Lactated 2022-0 No IV, start Raúl holland Ringers 1-24 date l Injection 15:55: 03/31/21 Herm justo 00 9:55: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, stop date 03/31/21 9:55: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 Lactated 2022-0 No IV, start Raúl holland Ringers 1-24 date l Injection 15:55: 03/31/21 Herm justo 00 9:55: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, stop date 03/31/21 9:55: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 Lactated 2-0 No IV, start Raúl holland Ringers 1-24 date l Injection 15:55: 03/31/21 Herm justo 00 9:55: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, stop 03/31/21 9:55: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 Lactated 2-0 No IV, start Raúl holland Ringers 1-24 date l Injection 15:55: 03/31/21 Herm justo 00 9:55: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, stop date 03/31/21 9:55: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 Lactated 2-0 No IV, start Raúl holland Ringers 1-24 date l Injection 15:55: 03/31/21 Herm justo 00 9:55: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, stop date 03/31/21 9:55: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 propofol 2-0 No 270 mg = Memor ia 1-24 27 mL, l 15:51: Emulsion, Jeffery 00 IV, Once, first dose 03/31/21 9:51: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, stop date 03/31/21 9:51: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 propofol 2-0 No 270 mg = Memor ia 1-24 27 mL, l 15:51: Emulsion, Jeffery 00 IV, Once, first dose 03/31/21 9:51: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, stop date 03/31/21 9:51: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 propofol 2022-0 No 270 mg = Memor ia 1-24 27 mL, l 15:51: Emulsion, Jeffery 00 IV, Once, first dose 03/31/21 9:51: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, stop date 03/31/21 9:51: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 propofol 2022-0 No 270 mg = Memor ia 1-24 27 mL, l 15:51: Emulsion, Jeffery 00 IV, Once, first dose 03/31/21 9:51: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, stop date 03/31/21 9:51: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 propofol 2022-0 No 270 mg = Memor ia 1-24 27 mL, l 15:51: Emulsion, Hubbard 00 IV, Once, first dose 03/31/21 9:51: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, stop date 03/31/21 9:51: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 propofol 2022-0 No 270 mg = Memor ia 1-24 27 mL, l 15:51: Emulsion, Jeffery 00 IV, Once, first dose 03/31/21 9:51: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, stop date 03/31/21 9:51: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 propofol 2022-0 No 270 mg = Memor ia 1-24 27 mL, l 15:51: Emulsion, Hubbard 00 IV, Once, first dose 03/31/21 9:51: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, stop date 03/31/21 9:51: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 propofol 2022-0 No 270 mg = Memor ia 1-24 27 mL, l 15:51: Emulsion, Jeffery 00 IV, Once, first dose 03/31/21 9:51: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, stop date 03/31/21 9:51: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 lidocaine 2022-0 No 50 mg = Memor ia 1-24 2.5 mL, l 15:29: Injection, Hubbard 00 IV, Once, first dose 03/31/21 9:29: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, stop date 03/31/21 9:29: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 lidocaine 2022-0 No 50 mg = Memor ia 1-24 2.5 mL, l 15:29: Injection, Jeffery 00 IV, Once, first dose 03/31/21 9:29: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, stop date 03/31/21 9:29: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 lidocaine 2022-0 No 50 mg = Memor ia 1-24 2.5 mL, l 15:29: Injection, Jeffery 00 IV, Once, first dose 03/31/21 9:29: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, stop date 03/31/21 9:29: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 lidocaine 2022-0 No 50 mg = Memor ia 1-24 2.5 mL, l 15:29: Injection, Jeffery 00 IV, Once, first dose 03/31/21 9:29: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, stop date 03/31/21 9:29: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 lidocaine 2021-0 No 50 mg = Memor ia 1-24 2.5 mL, l 15:29: Injection, Jeffery 00 IV, Once, first dose 03/31/21 9:29: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, stop date 03/31/21 9:29: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 lidocaine 2021-0 No 50 mg = Memor ia 1-24 2.5 mL, l 15:29: Injection, Hubbard 00 IV, Once, first dose 03/31/21 9:29: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, stop date 03/31/21 9:29: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 lidocaine 2021-0 No 50 mg = Memor ia 1-24 2.5 mL, l 15:29: Injection, Hubbard 00 IV, Once, first dose 03/31/21 9:29: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, stop date 03/31/21 9:29: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 lidocaine 2021-0 No 50 mg = Memor ia 1-24 2.5 mL, l 15:29: Injection, Hubbard 00 IV, Once, first dose 03/31/21 9:29: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, stop date 03/31/21 9:29: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 LR 1,000 mL 2021-0 No 1,000 mL, M emoria 1-24 IV, 100 l 15:16: mL/hr, start date 03/31/21 9:16: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, For Adults unless there is a known renal disease then use Normal Saline, 1.59, m2 LR 1,000 mL 2021-0 No 1,000 mL, M emoria 1-24 IV, 100 l 15:16: mL/hr, start date 03/31/21 9:16: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, For Adults unless there is a known renal disease then use Normal Saline, 1.59, m2 LR 1,000 mL 2021-0 No 1,000 mL, M emoria 1-24 IV, 100 l 15:16: mL/hr, Hubbard 00 start date 03/31/21 9:16: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, For Adults unless there is a known renal disease then use Normal Saline, 1.59, m2 LR 1,000 mL 2-0 No 1,000 mL, M emoria 1-24 IV, 100 l 15:16: mL/hr, start date 03/31/21 9:16: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, For Adults unless there is a known renal disease then use Normal Saline, 1.59, m2 LR 1,000 mL 2021-0 No 1,000 mL, M emoria 1-24 IV, 100 l 15:16: mL/hr, start date 03/31/21 9:16: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, For Adults unless there is a known renal disease then use Normal Saline, 1.59, m2 LR 1,000 mL 2021-0 No 1,000 mL, M emoria 1-24 IV, 100 l 15:16: mL/hr, start 03/31/21 9:16: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, For Adults unless there is a known renal disease then use Normal Saline, 1.59, m2 LR 1,000 mL 2021-0 No 1,000 mL, M emoria 1-24 IV, 100 l 15:16: mL/hr, start date 03/31/21 9:16: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, For Adults unless there is a known renal disease then use Normal Saline, 1.59, m2 LR 1,000 mL 2021-0 No 1,000 mL, M emoria 1-24 IV, 100 l 15:16: mL/hr, start date 03/31/21 9:16: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, For Adults unless there is a known renal disease then use Normal Saline, 1.59, m2 Pepcid 2021-0 No 20 mg = 2 Memori a 1-06 mL, l 23:00: Injection, Hubbard 00 IV Push, Once, first dose 03/13/21 17:00: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, stop date 03/13/21 17:00: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 Pepcid 2-0 No 20 mg = 2 Memori a 1-06 mL, l 23:00: Injection, Hubbard 00 IV Push, Once, first dose 03/13/21 17:00: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, stop date 03/13/21 17:00: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 Pepcid 2-0 No 20 mg = 2 Memori a 1-06 mL, l 23:00: Injection, Hubbard 00 IV Push, Once, first dose 03/13/21 17:00: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, stop date 03/13/21 17:00: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 Pepcid 2-0 No 20 mg = 2 Memori a 1-06 mL, l 23:00: Injection, Jeffery 00 IV Push, Once, first dose 03/13/21 17:00: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, stop date 03/13/21 17:00: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 Pepcid 2021-0 No 20 mg = 2 Memori a 1-06 mL, l 23:00: Injection, Jeffery 00 IV Push, Once, first dose 03/13/21 17:00: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, stop date 03/13/21 17:00: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 Pepcid 2021-0 No 20 mg = 2 Memori a 1-06 mL, l 23:00: Injection, Jeffery 00 IV Push, Once, first dose 03/13/21 17:00: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, stop date 03/13/21 17:00: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 Pepcid 2021-0 No 20 mg = 2 Memori a 1-06 mL, l 23:00: Injection, Hubbard 00 IV Push, Once, first dose 03/13/21 17:00: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, stop date 03/13/21 17:00: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 Pepcid 2021-0 No 20 mg = 2 Memori a 1-06 mL, l 23:00: Injection, Hubbard 00 IV Push, Once, first dose 03/13/21 17:00: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, stop date 03/13/21 17:00: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 Continuous 2021-0 No 1,000 mL, Me moria LR Bolus 1-06 IV, BOLUS, l 1,000 mL 21:36: start date [facility] 03/13/21 15:36: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, 1.62, m2 Continuous 2021-0 No 1,000 mL, Me moria LR Bolus 1-06 IV, BOLUS, l 1,000 mL 21:36: start date [facility] 03/13/21 15:36: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, 1.62, m2 Continuous 2021-0 No 1,000 mL, Me moria LR Bolus 1-06 IV, BOLUS, l 1,000 mL 21:36: start date [facility] 03/13/21 15:36: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, 1.62, m2 Continuous 2021-0 No 1,000 mL, Me moria LR Bolus 1-06 IV, BOLUS, l 1,000 mL 21:36: start date [facility] 03/13/21 15:36: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, 1.62, m2 Continuous 2021-0 No 1,000 mL, Me moria LR Bolus 1-06 IV, BOLUS, l 1,000 mL 21:36: start date [facility] 03/13/21 15:36: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, 1.62, m2 Continuous 2021-0 No 1,000 mL, Me moria LR Bolus 1-06 IV, BOLUS, l 1,000 mL 21:36: start date [facility] 03/13/21 15:36: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, 1.62, m2 Continuous 0 No 1,000 mL, Me moria LR Bolus 1-06 IV, BOLUS, l 1,000 mL 21:36: start date [facility] 03/13/21 15:36: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, 1.62, m2 Continuous 0 No 1,000 mL, Me moria LR Bolus 1-06 IV, BOLUS, l 1,000 mL 21:36: start date [facility] 03/13/21 15:36: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, 1.62, m2 Saline Lock No 20 mL, Raúl holland Flush -06 Soln, IV l 21:35: Push, As Hubbard 00 Indicated PRN for flush, first dose 03/13/21 15:35: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 Labetalol No 60, SBP Memor ia -06 Hold l 21:35: Parameter: Jeffery 00 less than 90 mmHg, HR Hold Parameter: less than 5... Hydralazine No 100, if Mem oria 1-06 HR<60 l 21:35: and/or Hubbard 00 labetalol 25mg reached., SBP Hold Parameter: less than 90 mmHg Demerol HCl No 12.5 mg = M emoria 1-06 0.5 mL, l 21:35: Injection, Hubbard 00 IV Push, q5min PRN for shivers, order duration: 2 doses, first dose 03/13/21 15:35: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, stop date Limited # of times Morphine 2021-0 No 2.5 mg = Memor ia 1-06 0.63 mL, l 21:35: Injection, Jeffery 00 IV Push, q5min PRN for Pain Mild (1-3), order duration: 4 doses, first dose 03/13/21 15:35: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, stop date Limited # of times, Max dose 10mg; If pain still unrelieved notify Anesthesio logist Dilaudid 0 No 0.5 mg = Memor ia 1-06 0.5 mL, l 21:35: Injection, Jeffery 00 IV Push, q5min PRN for Pain Moderate (4-6), order duration: 4 doses, first dose 03/13/21 15:35: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 If pain still unrelieved , notify Anesthesio logist Fentanyl No 50 mcg = 1 Mem oria 1-06 mL, l 21:35: Injection, Hubbard 00 IV Push, q5min PRN for pain severe (7-10), order duration: 2 doses, first dose 03/13/21 15:35: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, stop date Limited # of times, if pain still unrelieved after second dose, notify Anesthesio logist Ondansetron 0 No 4 mg = 2 Me moria 1-06 mL, l 21:35: Injection, Hubbard 00 IV Push, q15min PRN for nausea/vom iting, order duration: 2 doses, first dose 03/13/21 15:35: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, stop date Limited # of times promethazin 2021-0 No 12.5 mg, Me moria e IVPB 1-06 Injection, l 21:35: IV Jeffery 00 Piggyback, Once PRN for severe nausea, infuse over 15 minutes, first dose 03/13/21 15:35: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 Diphenhydra 0 No 12.5 mg = M emoria mine 1-06 0.25 mL, l 21:35: Injection, Jeffery 00 IV Push, q15min PRN for allergy symptoms, order duration: 2 doses, first dose 03/13/21 15:35: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, stop date Limited # of times Saline Lock 2022-0 No 20 mL, Raúl holland Flush 1-06 Soln, IV l 21:35: Push, As Hubbard 00 Indicated PRN for flush, first dose 03/13/21 15:35: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 Labetalol No 60, SBP Memor ia 1-06 Hold l 21:35: Parameter: Jeffery 00 less than 90 mmHg, HR Hold Parameter: less than 5... Hydralazine No 100, if Mem oria 1-06 HR<60 l 21:35: and/or Hubbard 00 labetalol 25mg reached., SBP Hold Parameter: less than 90 mmHg Demerol HCl No 12.5 mg = M emoria 1-06 0.5 mL, l 21:35: Injection, Jeffery 00 IV Push, q5min PRN for shivers, order duration: 2 doses, first dose 03/13/21 15:35: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, stop date Limited # of times Morphine No 2.5 mg = Memor ia 1-06 0.63 mL, l 21:35: Injection, Hubbard 00 IV Push, q5min PRN for Pain Mild (1-3), order duration: 4 doses, first dose 03/13/21 15:35: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, stop date Limited # of times, Max dose 10mg; If pain still unrelieved notify Anesthesio logist Dilaudid No 0.5 mg = Memor ia 1-06 0.5 mL, l 21:35: Injection, Jeffery 00 IV Push, q5min PRN for Pain Moderate (4-6), order duration: 4 doses, first dose 03/13/21 15:35: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 If pain still unrelieved , notify Anesthesio logist Fentanyl No 50 mcg = 1 Mem oria 1-06 mL, l 21:35: Injection, Hubbard 00 IV Push, q5min PRN for pain severe (7-10), order duration: 2 doses, first dose 03/13/21 15:35: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, stop date Limited # of times, if pain still unrelieved after second dose, notify Anesthesio logist Ondansetron 2022-0 No 4 mg = 2 Me moria 1-06 mL, l 21:35: Injection, Jeffery 00 IV Push, q15min PRN for nausea/vom iting, order duration: 2 doses, first dose 03/13/21 15:35: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, stop date Limited # of times promethazin No 12.5 mg, Me moria e IVPB 1-06 Injection, l 21:35: IV Jeffery 00 Piggyback, Once PRN for severe nausea, infuse over 15 minutes, first dose 03/13/21 15:35: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 Diphenhydra No 12.5 mg = M emoria mine 1-06 0.25 mL, l 21:35: Injection, Jeffery 00 IV Push, q15min PRN for allergy symptoms, order duration: 2 doses, first dose 03/13/21 15:35: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, stop date Limited # of times Saline Lock No 20 mL, Raúl holland Flush 1-06 Soln, IV l 21:35: Push, As Hubbard 00 Indicated PRN for flush, first dose 03/13/21 15:35: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 Labetalol No 60, SBP Memor ia 1-06 Hold l 21:35: Parameter: Hubbard 00 less than 90 mmHg, HR Hold Parameter: less than 5... Hydralazine No 100, if Mem oria 1-06 HR<60 l 21:35: and/or Jeffery 00 labetalol 25mg reached., SBP Hold Parameter: less than 90 mmHg Demerol HCl No 12.5 mg = M emoria 1-06 0.5 mL, l 21:35: Injection, Hubbard 00 IV Push, q5min PRN for shivers, order duration: 2 doses, first dose 03/13/21 15:35: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, stop date Limited # of times Morphine No 2.5 mg = Memor ia 1-06 0.63 mL, l 21:35: Injection, Hubbard 00 IV Push, q5min PRN for Pain Mild (1-3), order duration: 4 doses, first dose 03/13/21 15:35: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, stop date Limited # of times, Max dose 10mg; If pain still unrelieved notify Anesthesio logist Dilaudid No 0.5 mg = Memor ia 1-06 0.5 mL, l 21:35: Injection, Hubbard 00 IV Push, q5min PRN for Pain Moderate (4-6), order duration: 4 doses, first dose 03/13/21 15:35: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 If pain still unrelieved , notify Anesthesio logist Fentanyl No 50 mcg = 1 Mem oria 1-06 mL, l 21:35: Injection, Hubbard 00 IV Push, q5min PRN for pain severe (7-10), order duration: 2 doses, first dose 03/13/21 15:35: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, stop date Limited # of times, if pain still unrelieved after second dose, notify Anesthesio logist Ondansetron No 4 mg = 2 Me moria 1-06 mL, l 21:35: Injection, Hubbard 00 IV Push, q15min PRN for nausea/vom iting, order duration: 2 doses, first dose 03/13/21 15:35: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, stop date Limited # of times promethazin No 12.5 mg, Me moria e IVPB 1-06 Injection, l 21:35: IV Hubbard 00 Piggyback, Once PRN for severe nausea, infuse over 15 minutes, first dose 03/13/21 15:35: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 Diphenhydra No 12.5 mg = M fridaa mine 1-06 0.25 mL, l 21:35: Injection, Jeffery 00 IV Push, q15min PRN for allergy symptoms, order duration: 2 doses, first dose 03/13/21 15:35: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, stop date Limited # of times Saline Lock No 20 mL, Raúl holland Flush 1-06 Soln, IV l 21:35: Push, As Jeffery 00 Indicated PRN for flush, first dose 03/13/21 15:35: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 Labetalol No 60, SBP Memor ia 1-06 Hold l 21:35: Parameter: Hubbard 00 less than 90 mmHg, HR Hold Parameter: less than 5... Hydralazine No 100, if Mem oria 1-06 HR<60 l 21:35: and/or Jeffery 00 labetalol 25mg reached., SBP Hold Parameter: less than 90 mmHg Demerol HCl No 12.5 mg = M emoria 1-06 0.5 mL, l 21:35: Injection, Hubbard 00 IV Push, q5min PRN for shivers, order duration: 2 doses, first dose 03/13/21 15:35: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, stop date Limited # of times Morphine No 2.5 mg = Memor ia 1-06 0.63 mL, l 21:35: Injection, Hubbard 00 IV Push, q5min PRN for Pain Mild (1-3), order duration: 4 doses, first dose 03/13/21 15:35: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, stop date Limited # of times, Max dose 10mg; If pain still unrelieved notify Anesthesio logist Dilaudid No 0.5 mg = Memor ia 1-06 0.5 mL, l 21:35: Injection, Hubbard 00 IV Push, q5min PRN for Pain Moderate (4-6), order duration: 4 doses, first dose 03/13/21 15:35: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, stop date Limited # of times promethazin No 12.5 mg, Me moria e IVPB 1-06 Injection, l 21:35: IV Jeffery 00 Piggyback, Once PRN for severe nausea, infuse over 15 minutes, first dose 03/13/21 15:35: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 Diphenhydra No 12.5 mg = M emoria mine 1-06 0.25 mL, l 21:35: Injection, Jeffery 00 IV Push, q15min PRN for allergy symptoms, order duration: 2 doses, first dose 03/13/21 15:35: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, stop date Limited # of times Saline Lock No 20 mL, Raúl holland Flush -06 Soln, IV l 21:35: Push, As Hubbard 00 Indicated PRN for flush, first dose 03/13/21 15:35: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 Labetalol No 60, SBP Memor ia 1-06 Hold l 21:35: Parameter: Jeffery 00 less than 90 mmHg, HR Hold Parameter: less than 5... 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, stop date Limited # of times promethazin No 12.5 mg, Me moria e IVPB 1-06 Injection, l 21:35: IV Hubbard 00 Piggyback, Once PRN for severe nausea, infuse over 15 minutes, first dose 03/13/21 15:35: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 Diphenhydra No 12.5 mg = M emoria mine 1-06 0.25 mL, l 21:35: Injection, Jeffery 00 IV Push, q15min PRN for allergy symptoms, order duration: 2 doses, first dose 03/13/21 15:35: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, stop date Limited # of times Saline Lock No 20 mL, Raúl holland Flush 1-06 Soln, IV l 21:35: Push, As Hubbard 00 Indicated PRN for flush, first dose 03/13/21 15:35:00 [employer] Labetalol No 60, SBP Memor ia 1-06 Hold l 21:35: Parameter: Hubbard 00 less than 90 mmHg, HR Hold Parameter: less than 5... Hydralazine No 100, if Mem oria 1-06 HR<60 l 21:35: and/or Hubbard 00 labetalol 25mg reached., SBP Hold Parameter: less than 90 mmHg Demerol HCl No 12.5 mg = M emoria 1-06 0.5 mL, l 21:35: Injection, Jeffery 00 IV Push, q5min PRN for shivers, order duration: 2 doses, first dose 03/13/21 15:35:00 [employer], stop date Limited # of times Morphine 2021-0 No 2.5 mg = Memor ia 1-06 0.63 mL, l 21:35: Injection, Hubbard 00 IV Push, q5min PRN for Pain Mild (1-3), order duration: 4 doses, first dose 03/13/21 15:35:00 [employer], stop date Limited # of times, Max dose 10mg; If pain still unrelieved notify Anesthesio logist Dilaudid No 0.5 mg = Memor ia 1-06 0.5 mL, l 21:35: Injection, Jeffery 00 IV Push, q5min PRN for Pain Moderate (4-6), order duration: 4 doses, first dose 03/13/21 15:35:00 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, stop date Limited # of times, if pain still unrelieved after second dose, notify Anesthesio logist Ondansetron No 4 mg = 2 Me moria 1-06 mL, l 21:35: Injection, Jeffery 00 IV Push, q15min PRN for nausea/vom iting, order duration: 2 doses, first dose 03/13/21 15:35:00 FIREARMS INSTRUCTOR, stop date Limited # of times promethazin 0 No 12.5 mg, Me moria e IVPB 1-06 Injection, l 21:35: IV Jeffery 00 Piggyback, Once PRN for severe nausea, infuse over 15 minutes, first dose 03/13/21 15:35:00 FIREARMS INSTRUCTOR Diphenhydra 0 No 12.5 mg = M emoria mine 1-06 0.25 mL, l 21:35: Injection, Jeffery 00 IV Push, q15min PRN for allergy symptoms, order duration: 2 doses, first dose 03/13/21 15:35:00 FIREARMS INSTRUCTOR, stop date Limited # of times Saline Lock No 20 mL, Raúl holland Flush 1-06 Soln, IV l 21:35: Push, As Jeffrey 00 Indicated PRN for flush, first dose 03/13/21 15:35:00 FIREARMS INSTRUCTOR Labetalol No 60, SBP Memor ia 1-06 Hold l 21:35: Parameter: Hubbard 00 less than 90 mmHg, HR Hold Parameter: less than 5... Hydralazine No 100, if Mem oria 1-06 HR<60 l 21:35: and/or Jeffery 00 labetalol 25mg reached., SBP Hold Parameter: less than 90 mmHg Demerol HCl No 12.5 mg = M emoria 1-06 0.5 mL, l 21:35: Injection, Hubbard 00 IV Push, q5min PRN for shivers, order duration: 2 doses, first dose 03/13/21 15:35:00 FIREARMS INSTRUCTOR, stop date Limited # of times Morphine No 2.5 mg = Memor ia 1-06 0.63 mL, l 21:35: Injection, Hubbard 00 IV Push, q5min PRN for Pain Mild (1-3), order duration: 4 doses, first dose 03/13/21 15:35:00 FIREARMS INSTRUCTOR, stop date Limited # of times, Max dose 10mg; If pain still unrelieved notify Anesthesio logist Dilaudid No 0.5 mg = Memor ia 1-06 0.5 mL, l 21:35: Injection, Jeffery 00 IV Push, q5min PRN for Pain Moderate (4-6), order duration: 4 doses, first dose 03/13/21 15:35:00 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, stop date Limited # of times promethazin No 12.5 mg, Me moria e IVPB 1-06 Injection, l 21:35: IV Hubbard 00 Piggyback, Once PRN for severe nausea, infuse over 15 minutes, first dose 03/13/21 15:35:00 FIREARMS INSTRUCTOR Diphenhydra No 12.5 mg = M emoria mine 1-06 0.25 mL, l 21:35: Injection, Jeffery 00 IV Push, q15min PRN for allergy symptoms, order duration: 2 doses, first dose 03/13/21 15:35:00 FIREARMS INSTRUCTOR, stop date Limited # of times Saline Lock No 20 mL, Raúl holland Flush 1-06 Soln, IV l 21:35: Push, As Jeffery 00 Indicated PRN for flush, first dose 03/13/21 15:35:00 FIREARMS INSTRUCTOR Labetalol No 60, SBP Memor ia 1-06 Hold l 21:35: Parameter: Jeffery 00 less than 90 mmHg, HR Hold Parameter: less than 5... Hydralazine No 100, if Mem oria 1-06 HR<60 l 21:35: and/or Hubbard 00 labetalol 25mg reached., SBP Hold Parameter: less than 90 mmHg Demerol HCl No 12.5 mg = M emoria 1-06 0.5 mL, l 21:35: Injection, Jeffery 00 IV Push, q5min PRN for shivers, order duration: 2 doses, first dose 03/13/21 15:35:00 FIREARMS INSTRUCTOR, stop date Limited # of times Morphine No 2.5 mg = Memor ia 1-06 0.63 mL, l 21:35: Injection, Jeffery 00 IV Push, q5min PRN for Pain Mild (1-3), order duration: 4 doses, first dose 03/13/21 15:35:00 FIREARMS INSTRUCTOR, stop date Limited # of times, Max dose 10mg; If pain still unrelieved notify Anesthesio logist Dilaudid No 0.5 mg = Memor ia 1-06 0.5 mL, l 21:35: Injection, Jeffery 00 IV Push, q5min PRN for Pain Moderate (4-6), order duration: 4 doses, first dose 03/13/21 15:35:00 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, stop date Limited # of times promethazin No 12.5 mg, Me moria e IVPB 1-06 Injection, l 21:35: IV Hubbard 00 Piggyback, Once PRN for severe nausea, infuse over 15 minutes, first dose 03/13/21 15:35:00 FIREARMS INSTRUCTOR Diphenhydra No 12.5 mg = M emoria mine 1-06 0.25 mL, l 21:35: Injection, Hubbard 00 IV Push, q15min PRN for allergy symptoms, order duration: 2 doses, first dose 03/13/21 15:35:00 FIREARMS INSTRUCTOR, stop date Limited # of times Lactated 2021-0 No IV, start Raúl holland Ringers 1-06 date l Injection 21:20: 03/13/21 Herm justo 00 15:20:00 FIREARMS INSTRUCTOR, stop date 03/13/21 15:20:00 FIREARMS INSTRUCTOR Lactated 2021-0 No IV, start Raúl holland Ringers 1-06 date l Injection 21:20: 03/13/21 Herm justo 00 15:20:00 FIREARMS INSTRUCTOR, stop date 03/13/21 15:20:00 FIREARMS INSTRUCTOR Lactated 2-0 No IV, start Raúl holland Ringers 1-06 date l Injection 21:20: 03/13/21 Herm justo 00 15:20:00 FIREARMS INSTRUCTOR, stop date 03/13/21 15:20:00 FIREARMS INSTRUCTOR Lactated 2-0 No IV, start Raúl holland Ringers 1-06 date l Injection 21:20: 03/13/21 Herm justo 00 15:20:00 FIREARMS INSTRUCTOR, stop date 03/13/21 15:20:00 FIREARMS INSTRUCTOR Lactated 2-0 No IV, start Raúl holland Ringers 1-06 date l Injection 21:20: 03/13/21 Herm justo 00 15:20:00 FIREARMS INSTRUCTOR, stop date 03/13/21 15:20:00 FIREARMS INSTRUCTOR Lactated 2-0 No IV, start Raúl holland Ringers 1-06 date l Injection 21:20: 03/13/21 Herm justo 00 15:20:00 FIREARMS INSTRUCTOR, stop date 03/13/21 15:20:00 FIREARMS INSTRUCTOR Lactated 2-0 No IV, start Raúl holland Ringers 1-06 date l Injection 21:20: 03/13/21 Herm justo 00 15:20:00 FIREARMS INSTRUCTOR, stop date 03/13/21 15:20:00 FIREARMS INSTRUCTOR Lactated 2-0 No IV, start Raúl holland Ringers 1-06 date l Injection 21:20: 03/13/21 Herm justo 00 15:20:00 FIREARMS INSTRUCTOR, stop date 03/13/21 15:20:00 FIREARMS INSTRUCTOR fentaNYL 2021-0 No 100 mcg = Raúl holland 1-06 2 mL, l 19:07: Injection, Jeffery 00 IV, Once, first dose 03/13/21 13:07:00 FIREARMS INSTRUCTOR, stop date 03/13/21 13:07:00 FIREARMS INSTRUCTOR lidocaine 2021-0 No 100 mg = 5 Me moria 1-06 mL, l 19:07: Injection, Jeffery 00 IV, Once, first dose 03/13/21 13:07:00 FIREARMS INSTRUCTOR, stop date 03/13/21 13:07:00 FIREARMS INSTRUCTOR ketorolac 2021-0 No 30 mg = 1 Mem oria 1-06 mL, l 19:07: Injection, Jeffery 00 IV, Once, first dose 03/13/21 13:07:00 FIREARMS INSTRUCTOR, stop date 03/13/21 13:07:00 FIREARMS INSTRUCTOR propofol 2022-0 No 1,000 mg = Mem oria 1-06 100 mL, l 19:07: Emulsion, Jeffery 00 IV, Once, first dose 03/13/21 13:07:00 FIREARMS INSTRUCTOR, stop date 03/13/21 13:07:00 FIREARMS INSTRUCTOR fentaNYL 2022-0 No 100 mcg = Raúl holland 1-06 2 mL, l 19:07: Injection, Jeffery 00 IV, Once, first dose 03/13/21 13:07:00 FIREARMS INSTRUCTOR, stop date 03/13/21 13:07:00 FIREARMS INSTRUCTOR lidocaine 2022-0 No 100 mg = 5 Me moria 1-06 mL, l 19:07: Injection, Jeffery 00 IV, Once, first dose 03/13/21 13:07:00 FIREARMS INSTRUCTOR, stop date 03/13/21 13:07:00 FIREARMS INSTRUCTOR ketorolac 2022-0 No 30 mg = 1 Mem oria 1-06 mL, l 19:07: Injection, Jeffery 00 IV, Once, first dose 03/13/21 13:07:00 FIREARMS INSTRUCTOR, stop date 03/13/21 13:07:00 FIREARMS INSTRUCTOR propofol 2022-0 No 1,000 mg = Mem oria 1-06 100 mL, l 19:07: Emulsion, Hubbard 00 IV, Once, first dose 03/13/21 13:07:00 FIREARMS INSTRUCTOR, stop date 03/13/21 13:07:00 FIREARMS INSTRUCTOR fentaNYL 2022-0 No 100 mcg = Raúl holland 1-06 2 mL, l 19:07: Injection, Jeffery 00 IV, Once, first dose 03/13/21 13:07:00 FIREARMS INSTRUCTOR, stop date 03/13/21 13:07:00 FIREARMS INSTRUCTOR lidocaine 2022-0 No 100 mg = 5 Me moria 1-06 mL, l 19:07: Injection, Jeffery 00 IV, Once, first dose 03/13/21 13:07:00 FIREARMS INSTRUCTOR, stop date 03/13/21 13:07:00 FIREARMS INSTRUCTOR ketorolac 2022-0 No 30 mg = 1 Mem oria 1-06 mL, l 19:07: Injection, Jeffery 00 IV, Once, first dose 03/13/21 13:07:00 FIREARMS INSTRUCTOR, stop date 03/13/21 13:07:00 FIREARMS INSTRUCTOR propofol 2022-0 No 1,000 mg = Mem oria 1-06 100 mL, l 19:07: Emulsion, Hubbard 00 IV, Once, first dose 03/13/21 13:07:00 FIREARMS INSTRUCTOR, stop date 03/13/21 13:07:00 FIREARMS INSTRUCTOR fentaNYL 2022-0 No 100 mcg = Raúl holland 1-06 2 mL, l 19:07: Injection, Hubbard 00 IV, Once, first dose 03/13/21 13:07:00 FIREARMS INSTRUCTOR, stop date 03/13/21 13:07:00 FIREARMS INSTRUCTOR lidocaine 2022-0 No 100 mg = 5 Me moria 1-06 mL, l 19:07: Injection, Jeffery 00 IV, Once, first dose 03/13/21 13:07:00 FIREARMS INSTRUCTOR, stop date 03/13/21 13:07:00 FIREARMS INSTRUCTOR ketorolac 2022-0 No 30 mg = 1 Mem oria 1-06 mL, l 19:07: Injection, Jeffery 00 IV, Once, first dose 03/13/21 13:07:00 FIREARMS INSTRUCTOR, stop date 03/13/21 13:07:00 FIREARMS INSTRUCTOR propofol 2-0 No 1,000 mg = Mem oria 1-06 100 mL, l 19:07: Emulsion, Hubbard 00 IV, Once, first dose 03/13/21 13:07:00 FIREARMS INSTRUCTOR, stop date 03/13/21 13:07:00 FIREARMS INSTRUCTOR fentaNYL 2-0 No 100 mcg = Raúl holland 1-06 2 mL, l 19:07: Injection, Jeffery 00 IV, Once, first dose 03/13/21 13:07:00 FIREARMS INSTRUCTOR, stop date 03/13/21 13:07:00 FIREARMS INSTRUCTOR lidocaine 2022-0 No 100 mg = 5 Me moria 1-06 mL, l 19:07: Injection, Hubbard 00 IV, Once, first dose 03/13/21 13:07:00 FIREARMS INSTRUCTOR, stop date 03/13/21 13:07:00 FIREARMS INSTRUCTOR ketorolac 2022-0 No 30 mg = 1 Mem oria 1-06 mL, l 19:07: Injection, Hubbard 00 IV, Once, first dose 03/13/21 13:07:00 FIREARMS INSTRUCTOR, stop date 03/13/21 13:07:00 FIREARMS INSTRUCTOR propofol 2022-0 No 1,000 mg = Mem oria 1-06 100 mL, l 19:07: Emulsion, Jeffery 00 IV, Once, first dose 03/13/21 13:07:00 FIREARMS INSTRUCTOR, stop date 03/13/21 13:07:00 FIREARMS INSTRUCTOR fentaNYL 2-0 No 100 mcg = Raúl holland 1-06 2 mL, l 19:07: Injection, Hubbard 00 IV, Once, first dose 03/13/21 13:07:00 FIREARMS INSTRUCTOR, stop date 03/13/21 13:07:00 FIREARMS INSTRUCTOR lidocaine 2-0 No 100 mg = 5 Me moria 1-06 mL, l 19:07: Injection, Hubbard 00 IV, Once, first dose 03/13/21 13:07:00 FIREARMS INSTRUCTOR, stop date 03/13/21 13:07:00 FIREARMS INSTRUCTOR ketorolac 2-0 No 30 mg = 1 Mem oria 1-06 mL, l 19:07: Injection, Jeffery 00 IV, Once, first dose 03/13/21 13:07:00 FIREARMS INSTRUCTOR, stop date 03/13/21 13:07:00 FIREARMS INSTRUCTOR propofol 2-0 No 1,000 mg = Mem oria 1-06 100 mL, l 19:07: Emulsion, Jeffery 00 IV, Once, first dose 03/13/21 13:07:00 FIREARMS INSTRUCTOR, stop date 03/13/21 13:07:00 FIREARMS INSTRUCTOR fentaNYL 2-0 No 100 mcg = Raúl holland 1-06 2 mL, l 19:07: Injection, Hubbard 00 IV, Once, first dose 03/13/21 13:07:00 FIREARMS INSTRUCTOR, stop date 03/13/21 13:07:00 FIREARMS INSTRUCTOR lidocaine 2-0 No 100 mg = 5 Me moria 1-06 mL, l 19:07: Injection, Jeffery 00 IV, Once, first dose 03/13/21 13:07:00 FIREARMS INSTRUCTOR, stop date 03/13/21 13:07:00 FIREARMS INSTRUCTOR ketorolac 2-0 No 30 mg = 1 Mem oria 1-06 mL, l 19:07: Injection, Hubbard 00 IV, Once, first dose 03/13/21 13:07:00 FIREARMS INSTRUCTOR, stop date 03/13/21 13:07:00 FIREARMS INSTRUCTOR propofol 2022-0 No 1,000 mg = Mem oria 1-06 100 mL, l 19:07: Emulsion, Jeffery 00 IV, Once, first dose 03/13/21 13:07:00 FIREARMS INSTRUCTOR, stop date 03/13/21 13:07:00 FIREARMS INSTRUCTOR fentaNYL 2-0 No 100 mcg = Raúl holland 1-06 2 mL, l 19:07: Injection, Hubbard 00 IV, Once, first dose 03/13/21 13:07:00 FIREARMS INSTRUCTOR, stop date 03/13/21 13:07:00 FIREARMS INSTRUCTOR lidocaine 2-0 No 100 mg = 5 Me moria 1-06 mL, l 19:07: Injection, Jeffery 00 IV, Once, first dose 03/13/21 13:07:00 FIREARMS INSTRUCTOR, stop date 03/13/21 13:07:00 FIREARMS INSTRUCTOR ketorolac 2-0 No 30 mg = 1 Mem oria 1-06 mL, l 19:07: Injection, Hubbard 00 IV, Once, first dose 03/13/21 13:07:00 FIREARMS INSTRUCTOR, stop date 03/13/21 13:07:00 FIREARMS INSTRUCTOR propofol 2-0 No 1,000 mg = Mem oria 1-06 100 mL, l 19:07: Emulsion, Jeffery 00 IV, Once, first dose 03/13/21 13:07:00 FIREARMS INSTRUCTOR, stop date 03/13/21 13:07:00 FIREARMS INSTRUCTOR ceFAZolin 2-0 No 2 gm, Memoria 1-06 Soln-IV, l 19:06: IV, Once, Hubbard 00 first dose 03/13/21 13:06:00 FIREARMS INSTRUCTOR, stop date 03/13/21 13:06:00 FIREARMS INSTRUCTOR ceFAZolin 2-0 No 2 gm, Memoria 1-06 Soln-IV, l 19:06: IV, Once, Hubbard 00 first dose 03/13/21 13:06:00 FIREARMS INSTRUCTOR, stop date 03/13/21 13:06:00 FIREARMS INSTRUCTOR ceFAZolin 2-0 No 2 gm, Memoria 1-06 Soln-IV, l 19:06: IV, Once, Hubbard 00 first dose 03/13/21 13:06:00 FIREARMS INSTRUCTOR, stop date 03/13/21 13:06:00 FIREARMS INSTRUCTOR ceFAZolin 2-0 No 2 gm, Memoria 1-06 Soln-IV, l 19:06: IV, Once, Hubbard 00 first dose 03/13/21 13:06:00 FIREARMS INSTRUCTOR, stop date 03/13/21 13:06:00 FIREARMS INSTRUCTOR ceFAZolin 2022-0 No 2 gm, Memoria 1-06 Soln-IV, l 19:06: IV, Once, first dose 03/13/21 13:06:00 FIREARMS INSTRUCTOR, stop date 03/13/21 13:06:00 FIREARMS INSTRUCTOR ceFAZolin 2022-0 No 2 gm, Memoria 1- Soln-IV, l 19:06: IV, Once, first dose 03/13/21 13:06:00 FIREARMS INSTRUCTOR, stop date 03/13/21 13:06:00 FIREARMS INSTRUCTOR ceFAZolin 2-0 No 2 gm, Memoria 1- Soln-IV, l 19:06: IV, Once, first dose 03/13/21 13:06:00 FIREARMS INSTRUCTOR, stop date 03/13/21 13:06:00 FIREARMS INSTRUCTOR ceFAZolin 2-0 No 2 gm, Memoria 1- Soln-IV, l 19:06: IV, Once, first dose 03/13/21 13:06:00 FIREARMS INSTRUCTOR, stop date 03/13/21 13:06:00 FIREARMS INSTRUCTOR Lidocaine 2-0 No 5 mg = 0.5 Me moria pf IV start 1-06 mL, l 0.5mL 18:00: Injection, Delroy n [TOPS] Subcutaneo us, Once, first dose 03/13/21 12:00:00 FIREARMS INSTRUCTOR, stop date 03/13/21 12:00:00 FIREARMS INSTRUCTOR, For IV Start Cefazolin 2021-0 No 2 gm, Memoria - Soln-IV, l 18:00: IV Piggyback, Once, infuse over 30 minutes, first dose 03/13/21 12:00:00 FIREARMS INSTRUCTOR, stop date 03/13/21 12:00:00 FIREARMS INSTRUCTOR, Give within 1 hour of incision, Prophylaxi s Ofirmev 2021-0 No Notes: Max Raúl holland 1-06 4gm l 18:00: acetaminop hen in 24 hours Lidocaine 2-0 No 5 mg = 0.5 Me moria pf IV start 1-06 mL, l 0.5mL 18:00: Injection, Delroy n [TOPS] 00 Subcutaneo us, Once, first dose 03/13/21 12:00:00 FIREARMS INSTRUCTOR, stop date 03/13/21 12:00:00 FIREARMS INSTRUCTOR, For IV Start Cefazolin 2021-0 No 2 gm, Memoria 1-06 Soln-IV, l 18:00: IV Jeffery 00 Piggyback, Once, infuse over 30 minutes, first dose 03/13/21 12:00:00 FIREARMS INSTRUCTOR, stop date 03/13/21 12:00:00 FIREARMS INSTRUCTOR, Give within 1 hour of incision, Prophylaxi s Ofirmev 0 No Notes: Max Raúl holland 1-06 4gm l 18:00: acetaminop Hubbard 00 hen in 24 hours Lidocaine 2021-0 No 5 mg = 0.5 Me moria pf IV start 1-06 mL, l 0.5mL 18:00: Injection, Delroy n [TOPS] 00 Subcutaneo us, Once, first dose 03/13/21 12:00:00 FIREARMS INSTRUCTOR, stop date 03/13/21 12:00:00 FIREARMS INSTRUCTOR, For IV Start Cefazolin 2021-0 No 2 gm, Memoria 1-06 Soln-IV, l 18:00: IV Jeffery 00 Piggyback, Once, infuse over 30 minutes, first dose 03/13/21 12:00:00 FIREARMS INSTRUCTOR, stop date 03/13/21 12:00:00 FIREARMS INSTRUCTOR, Give within 1 hour of incision, Prophylaxi s Ofirmev 2021-0 No Notes: Max Raúl holland 1-06 4gm l 18:00: acetaminop Jeffery 00 hen in 24 hours Lidocaine 2021-0 No 5 mg = 0.5 Me moria pf IV start 1-06 mL, l 0.5mL 18:00: Injection, Delroy n [TOPS] 00 Subcutaneo us, Once, first dose 03/13/21 12:00:00 FIREARMS INSTRUCTOR, stop date 03/13/21 12:00:00 FIREARMS INSTRUCTOR, For IV Start Cefazolin 2021-0 No 2 gm, Memoria 1-06 Soln-IV, l 18:00: IV Hubbard 00 Piggyback, Once, infuse over 30 minutes, first dose 03/13/21 12:00:00 FIREARMS INSTRUCTOR, stop date 03/13/21 12:00:00 FIREARMS INSTRUCTOR, Give within 1 hour of incision, Prophylaxi s Ofirmev 2021-0 No Notes: Max Raúl holland 1-06 4gm l 18:00: acetaminop Hubbard 00 hen in 24 hours Lidocaine 2021-0 No 5 mg = 0.5 Me moria pf IV start 1-06 mL, l 0.5mL 18:00: Injection, Delroy n [TOPS] 00 Subcutaneo us, Once, first dose 03/13/21 12:00:00 FIREARMS INSTRUCTOR, stop date 03/13/21 12:00:00 FIREARMS INSTRUCTOR, For IV Start Cefazolin 2021-0 No 2 gm, Memoria 1-06 Soln-IV, l 18:00: IV Hubbard 00 Piggyback, Once, infuse over 30 minutes, first dose 03/13/21 12:00:00 FIREARMS INSTRUCTOR, stop date 03/13/21 12:00:00 FIREARMS INSTRUCTOR, Give within 1 hour of incision, Prophylaxi s Ofirmev 0 No Notes: Max Raúl holland 1-06 4gm l 18:00: acetaminop Hubbard 00 hen in 24 hours Lidocaine 2021-0 No 5 mg = 0.5 Me moria pf IV start 1-06 mL, l 0.5mL 18:00: Injection, Delroy n [TOPS] 00 Subcutaneo us, Once, first dose 03/13/21 12:00:00 FIREARMS INSTRUCTOR, stop date 03/13/21 12:00:00 FIREARMS INSTRUCTOR, For IV Start Cefazolin 2021-0 No 2 gm, Memoria 1-06 Soln-IV, l 18:00: IV Jeffery 00 Piggyback, Once, infuse over 30 minutes, first dose 03/13/21 12:00:00 FIREARMS INSTRUCTOR, stop date 03/13/21 12:00:00 FIREARMS INSTRUCTOR, Give within 1 hour of incision, Prophylaxi s Ofirmev 0 No Notes: Max Raúl holland 1-06 4gm l 18:00: acetaminop Hubbard 00 hen in 24 hours Lidocaine 2021-0 No 5 mg = 0.5 Me moria pf IV start 1-06 mL, l 0.5mL 18:00: Injection, Delroy n [TOPS] 00 Subcutaneo us, Once, first dose 03/13/21 12:00:00 FIREARMS INSTRUCTOR, stop date 03/13/21 12:00:00 FIREARMS INSTRUCTOR, For IV Start Cefazolin No 2 gm, Memoria 1-06 Soln-IV, l 18:00: IV Hubbard 00 Piggyback, Once, infuse over 30 minutes, first dose 03/13/21 12:00:00 FIREARMS INSTRUCTOR, stop date 03/13/21 12:00:00 FIREARMS INSTRUCTOR, Give within 1 hour of incision, Prophylaxi s Ofirmev No Notes: Max Raúl holland 1-06 4gm l 18:00: acetaminop Jeffery 00 hen in 24 hours Lidocaine No 5 mg = 0.5 Me moria pf IV start 1-06 mL, l 0.5mL 18:00: Injection, Delroy n [TOPS] 00 Subcutaneo us, Once, first dose 03/13/21 12:00:00 FIREARMS INSTRUCTOR, stop date 03/13/21 12:00:00 FIREARMS INSTRUCTOR, For IV Start Cefazolin No 2 gm, Memoria 1-06 Soln-IV, l 18:00: IV Hubbard 00 Piggyback, Once, infuse over 30 minutes, first dose 03/13/21 12:00:00 FIREARMS INSTRUCTOR, stop date 03/13/21 12:00:00 FIREARMS INSTRUCTOR, Give within 1 hour of incision, Prophylaxi s Ofirmev No Notes: Max Raúl holland 1-06 4gm l 18:00: acetaminop Jeffery 00 hen in 24 hours LR 1,000 mL No 1,000 mL, M emoria 1-06 IV, 100 l 17:27: mL/hr, Jeffery 00 start date 03/13/21 11:27:00 FIREARMS INSTRUCTOR, For Adults unless there is a known renal disease then use Normal Saline, 1.62, m2 LR 1,000 mL No 1,000 mL, M emoria 1-06 IV, 100 l 17:27: mL/hr, Jeffery 00 start date 03/13/21 11:27:00 FIREARMS INSTRUCTOR, For Adults unless there is a known renal disease then use Normal Saline, 1.62, m2 LR 1,000 mL No 1,000 mL, M emoria 1-06 IV, 100 l 17:27: mL/hr, Jeffery start date 03/13/21 11:27:00 FIREARMS INSTRUCTOR, For Adults unless there is a known renal disease then use Normal Saline, 1.62, m2 LR 1,000 mL 2021-0 No 1,000 mL, M emoria 1-06 IV, 100 l 17:27: mL/hr, start 03/13/21 11:27:00 FIREARMS INSTRUCTOR, For Adults unless there is a known renal disease then use Normal Saline, 1.62, m2 LR 1,000 mL 2021-0 No 1,000 mL, M emoria 1-06 IV, 100 l 17:27: mL/hr, start 03/13/21 11:27:00 FIREARMS INSTRUCTOR, For Adults unless there is a known renal disease then use Normal Saline, 1.62, m2 LR 1,000 mL 2021-0 No 1,000 mL, M emoria 1-06 IV, 100 l 17:27: mL/hr, start 03/13/21 11:27:00 FIREARMS INSTRUCTOR, For Adults unless there is a known renal disease then use Normal Saline, 1.62, m2 LR 1,000 mL 2021-0 No 1,000 mL, M emoria 1-06 IV, 100 l 17:27: mL/hr, start 03/13/21 11:27:00 FIREARMS INSTRUCTOR, For Adults unless there is a known renal disease then use Normal Saline, 1.62, m2 LR 1,000 mL 2021-0 No 1,000 mL, M emoria 1-06 IV, 100 l 17:27: mL/hr, start 03/13/21 11:27:00 FIREARMS INSTRUCTOR, For Adults unless there is a known [...] No Persistent TAKE ONE [facility] (TOPAMAX) 03-13 05-03 headaches (1) Luke s 100 MG 00:00: 00:00 TABLET(S) Medic al tablet 00 :00 BY MOUTH [facility] EVERY MORNING AND 2 TABLETS IN THE EVENING. topiramate 2021- No Persistent TAKE ONE [facility] (TOPAMAX) 03-13 05-03 headaches (1) Luke s 100 MG 00:00: 00:00 TABLET(S) Medic al tablet 00 :00 BY MOUTH Center EVERY MORNING AND 2 TABLETS IN THE EVENING. topiramate 2021- No Persistent TAKE ONE [facility] (TOPAMAX) 03-13 05-03 headaches (1) Luke s 100 MG 00:00: 00:00 TABLET(S) Medic al tablet 00 :00 BY MOUTH Center EVERY MORNING AND 2 TABLETS IN THE EVENING. topiramate 2021- No Persistent TAKE ONE [facility] (TOPAMAX) 03-13 05-03 headaches (1) Luke s 100 MG 00:00: 00:00 TABLET(S) Medic al tablet 00 :00 BY MOUTH Center EVERY MORNING AND 2 TABLETS IN THE EVENING. topiramate 2021- No Persistent TAKE ONE [facility] (TOPAMAX) 1-06 05-03 headaches (1) Luke s 100 MG 00:00: 00:00 TABLET(S) Medic al tablet 00 :00 BY MOUTH Center EVERY MORNING AND 2 TABLETS IN THE EVENING. Prilosec 2021-0 Yes 40 mg, Memoria 1-05 Oral, l 16:49: Daily Jeffery Prilosec 2021-0 Yes 40 mg, Memoria 1-05 Oral, l 16:49: Daily Hubbard Prilosec 2021-0 Yes 40 mg, Memoria 1-05 Oral, l 16:49: Daily Jeffery Prilosec 2021-0 Yes 40 mg, Memoria 1-05 Oral, l 16:49: Daily Jeffery Prilosec 2021-0 Yes 40 mg, Memoria 1-05 Oral, l 16:49: Daily Jeffery Prilosec 2021-0 Yes 40 mg, Memoria 1-05 Oral, l 16:49: Daily Jeffery Prilosec 2021-0 Yes 40 mg, Memoria 1-05 Oral, l 16:49: Daily Hubbard Prilosec 2021-0 Yes 40 mg, Memoria 1-05 Oral, l 16:49: Daily Hubbard 00 Acetaminoph 2020-03 No Notes: Max Memoria en 325 MG / 2-20 4gm l Hydrocodone 16:42: acetaminop Jeffery Bitartrate 00 hen in 24 5 MG Oral hours Tablet [[place] 5/325] Acetaminoph 2020-03 No Notes: Max Memoria en 325 MG / 2-20 4gm l Hydrocodone 16:42: acetaminop [place] Bitartrate 00 hen in 24 5 MG Oral hours Tablet [[place] 5/325] Acetaminoph 2020-03 No Notes: Max Memoria en 325 MG / 2-20 4gm l Hydrocodone 16:42: acetaminop Hubbard Bitartrate 00 hen in 24 5 MG Oral hours Tablet [[place] 5/325] Acetaminoph 2020-03 No Notes: Max Memoria en 325 MG / 2-20 4gm l Hydrocodone 16:42: acetaminop [place] Bitartrate 00 hen in 24 5 MG Oral hours Tablet [[place] 5/325] Acetaminoph 2020-03 No Notes: Max Memoria en 325 MG / 2-20 4gm l Hydrocodone 16:42: acetaminop [place] Bitartrate 00 hen in 24 5 MG Oral hours Tablet [[place] 5/325] Acetaminoph 2020-03 No Notes: Max Memoria en 325 MG / 2-20 4gm l Hydrocodone 16:42: acetaminop Jeffery Bitartrate 00 hen in 24 5 MG Oral hours Tablet [[place] 5/325] Acetaminoph 2020-03 No Notes: Max Memoria en 325 MG / 2-20 4gm l Hydrocodone 16:42: acetaminop Jeffery Bitartrate 00 hen in 24 5 MG Oral hours Tablet [[place] 5/325] Acetaminoph 2020-03 No Notes: Max Memoria en 325 MG / 2-20 4gm l Hydrocodone 16:42: acetaminop Jeffery Bitartrate 00 hen in 24 5 MG Oral hours Tablet [[place] 5/325] Saline Lock 2020-03 No 20 mL, Raúl holland Flush 2-20 Soln, IV l 15:28: Push, As Jeffery 00 Indicated PRN for flush, first dose 02/24/21 9:28:00 [employer] Labetalol 2020-03 No 60, SBP Memor ia 2-20 Hold l 15:28: Parameter: Jeffery 00 less than 100 mmHg, HR Hold Parameter: less than 5... Hydralazine 2020-03 No 100, if Mem oria 2-20 HR<60 l 15:28: and/or Jeffery 00 labetalol 25mg reached., SBP Hold Parameter: less than 100 mmHg Demerol HCl 2020-03 No 12.5 mg = M emoria 2-20 0.5 mL, l 15:28: Injection, Hubbard 00 IV Push, q5min PRN for shivers, order duration: 2 doses, first dose 02/24/21 9:28:00 [employer], stop date Limited # of times Fentanyl 2020-03 No 25 mcg = Memor ia 2-20 0.5 mL, l 15:28: Injection, Jeffery 00 IV Push, q5min PRN for pain mild-moder ate (1-6), order duration: 2 doses, first dose 02/24/21 9:28:00 [employer], stop date Limited # of times, if pain still unrelieved after second dose, notify Anesthesio logist for further orders Ondansetron 2020-03 No 4 mg = 2 Me moria 2-20 mL, l 15:28: Injection, Hubbard 00 IV Push, q15min PRN for nausea/vom iting, order duration: 2 doses, first dose 02/24/21 9:28:00 [employer]AR[employer], stop date Limited # of times promethazin 2020-03 No 12.5 mg, Me moria e IVPB 2-20 Injection, l 15:28: IV Jeffery 00 Piggyback, Once PRN for severe nausea, infuse over 15 minutes, first dose 02/24/21 9:28:00 [employer]ARMS IN[employer] Diphenhydra 2020-03 No 12.5 mg = M emoria mine 2-20 0.25 mL, l 15:28: Injection, IV Push, q15min PRN for allergy symptoms, order duration: 2 doses, first dose 02/24/21 9:28:00 FIREARMS INSTRU[employer], stop date Limited # of times Acetaminoph 2020-03 No Notes: Max Memoria en 325 MG / 2-20 4gm l Hydrocodone 15:28: acetaminop Hubbard Bitartrate 00 hen in 24 5 MG Oral hours Tablet [[place] 5/325] Saline Lock 2020-03 No 20 mL, Raúl holland Flush 2-20 Soln, IV l 15:28: Push, As Indicated PRN for flush, first dose 02/24/21 9:28:00 FIREARMS IN[employer] Labetalol 2020-03 No 60, SBP Memor ia 2-20 Hold l 15:28: Parameter: 00 less than 100 mmHg, HR Hold Parameter: less than 5... Hydralazine 2020-03 No 100, if Mem oria 2-20 HR<60 l 15:28: and/or labetalol 25mg reached., SBP Hold Parameter: less than 100 mmHg Demerol HCl 2020-03 No 12.5 mg = M emoria 2-20 0.5 mL, l 15:28: Injection, Jeffery 00 IV Push, q5min PRN for shivers, order duration: 2 doses, first dose 02/24/21 9:28:00 FIREARMS INSTRU[employer], stop date Limited # of times Fentanyl 2020-03 No 25 mcg = Memor ia 2-20 0.5 mL, l 15:28: Injection, Hubbard 00 IV Push, q5min PRN for pain mild-moder ate (1-6), order duration: 2 doses, first dose 02/24/21 9:28:00 FIREARMS IN[employer], stop date Limited # of times, if pain still unrelieved after second dose, notify Anesthesio logist for further orders Ondansetron 2020-03 No 4 mg = 2 Me moria 2-20 mL, l 15:28: Injection, Hubbard 00 IV Push, q15min PRN for nausea/vom iting, order duration: 2 doses, first dose 02/24/21 9:28:00 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, 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 Limited # of times promethazin 2020-03 No 12.5 mg, Me moria e IVPB 2-20 Injection, l 15:28: IV Piggyback, Once PRN for severe nausea, infuse over 15 minutes, first dose 02/24/21 9:28:00 FIREARMS IN[employer] Diphenhydra 2020-03 No 12.5 mg = M emoria mine 2-20 0.25 mL, l 15:28: Injection, IV Push, q15min PRN for allergy symptoms, order duration: 2 doses, first dose 02/24/21 9:28:00 FIREARMS INSTRU[employer], stop date Limited # of times Acetaminoph 2020-03 No Notes: Max Memoria en 325 MG / 2-20 4gm l Hydrocodone 15:28: acetaminop Jeffery Bitartrate 00 hen in 24 5 MG Oral hours Tablet [[place] 5/325] Saline Lock 2020-03 No 20 mL, Raúl holland Flush 2-20 Soln, IV l 15:28: Push, As Indicated PRN for flush, first dose 02/24/21 9:28:00 FIREARMS IN[employer] Labetalol 2020-03 No 60, SBP Memor ia 2-20 Hold l 15:28: Parameter: Hubbard 00 less than 100 mmHg, HR Hold [...] duration: 2 doses, first dose 02/24/21 9:28:00 FIREARMS INSTRUCTOR, 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 Limited # of times Fentanyl 2020-03 No 25 mcg = Memor ia 2-20 0.5 mL, l 15:28: Injection, Jeffery 00 IV Push, q5min PRN for pain mild-moder ate (1-6), order duration: 2 doses, first dose 02/24/21 9:28:00 FIREARMS IN[employer], stop date Limited # of times, if pain still unrelieved after second dose, notify Anesthesio logist for further orders Ondansetron 2020-03 No 4 mg = 2 Me moria 2-20 mL, l 15:28: Injection, Jeffery 00 IV Push, q15min PRN for nausea/vom iting, order duration: 2 doses, first dose 02/24/21 9:28:00 FIREARMS INSTRU[employer], stop date Limited # of times promethazin 2020-03 No 12.5 mg, Me moria e IVPB 2-20 Injection, l 15:28: IV Jeffery 00 Piggyback, Once PRN for severe nausea, infuse over 15 minutes, first dose 02/24/21 9:28:00 FIREARMS IN[employer] Diphenhydra 2020-03 No 12.5 mg = M emoria mine 2-20 0.25 mL, l 15:28: Injection, Hubbard 00 IV Push, q15min PRN for allergy symptoms, order duration: 2 doses, first dose 02/24/21 9:28:00 FIREARMS INSTRU[employer], stop date Limited # of times Acetaminoph 2020-03 No Notes: Max Memoria en 325 MG / 2-20 4gm l Hydrocodone 15:28: acetaminop Jeffery Bitartrate 00 hen in 24 5 MG Oral hours Tablet [[place] 5/325] Saline Lock 2020-03 No 20 mL, Raúl holland Flush 2-20 Soln, IV l 15:28: Push, As Hubbard 00 Indicated PRN for flush, first dose 02/24/21 9:28:00 FIREARMS IN[employer]CTOR Labetalol 2020-03 No 60, SBP Memor ia 2-20 Hold l 15:28: Parameter: Jeffery 00 less than 100 mmHg, HR Hold Parameter: less than 5... Hydralazine 2020-03 No 100, if Mem oria 2-20 HR<60 l 15:28: and/or Jeffery 00 labetalol 25mg reached., SBP Hold Parameter: less than 100 mmHg Demerol HCl 2020-03 No 12.5 mg = M emoria 2-20 0.5 mL, l 15:28: Injection, Hubbard 00 IV Push, q5min PRN for shivers, order duration: 2 doses, first dose 02/24/21 9:28:00 FIREARMS INSTRU[employer], stop date Limited # of times Fentanyl 2020-03 No 25 mcg = Memor ia 2-20 0.5 mL, l 15:28: Injection, Hubbard 00 IV Push, q5min PRN for pain mild-moder ate (1-6), order duration: 2 doses, first dose 02/24/21 9:28:00 FIREARMS IN[employer], stop date Limited # of times, if pain still unrelieved after second dose, notify Anesthesio logist for further orders Ondansetron 2020-03 No 4 mg = 2 Me moria 2-20 mL, l 15:28: Injection, Jeffery 00 IV Push, q15min PRN for nausea/vom iting, order duration: 2 doses, first dose 02/24/21 9:28:00 FIREARMS IN[employer], stop date Limited # of times promethazin 2020-03 No 12.5 mg, Me moria e IVPB 2-20 Injection, l 15:28: IV Jeffery 00 Piggyback, Once PRN for severe nausea, infuse over 15 minutes, first dose 02/24/21 9:28:00 FIREARMS IN[employer] Diphenhydra 2020-03 No 12.5 mg = M emoria mine 2-20 0.25 mL, l 15:28: Injection, Jeffery 00 IV Push, q15min PRN for allergy symptoms, order duration: 2 doses, first dose 02/24/21 9:28:00 FIREARMS INSTRU[employer], stop date Limited # of times Acetaminoph 2020-03 No Notes: Max Memoria en 325 MG / 2-20 4gm l Hydrocodone 15:28: acetaminop Jeffery Bitartrate 00 hen in 24 5 MG Oral hours Tablet [[place] 5/325] Saline Lock 2020-03 No 20 mL, Raúl holland Flush 2-20 Soln, IV l 15:28: Push, As Jeffery 00 Indicated PRN for flush, first dose 02/24/21 9:28:00 FIREARMS INSTRU[employer] Labetalol 2020-03 No 60, SBP Memor ia 2-20 Hold l 15:28: Parameter: Jeffery 00 less than 100 mmHg, HR Hold Parameter: less than 5... Hydralazine 2020-03 No 100, if Mem oria 2-20 HR<60 l 15:28: and/or Hubbard 00 labetalol 25mg reached., SBP Hold Parameter: less than 100 mmHg Demerol HCl 2020-03 No 12.5 mg = M emoria 2-20 0.5 mL, l 15:28: Injection, Hubbard 00 IV Push, q5min PRN for shivers, order duration: 2 doses, first dose 02/24/21 9:28:00 FIREARMS INSTRU[employer], stop date Limited # of times Fentanyl 2020-03 No 25 mcg = Memor ia 2-20 0.5 mL, l 15:28: Injection, Hubbard 00 IV Push, q5min PRN for pain mild-moder ate (1-6), order duration: 2 doses, first dose 02/24/21 9:28:00 FIREARMS INSTRU[employer], stop date Limited # of times, if pain still unrelieved after second dose, notify Anesthesio logist for further orders Ondansetron 2020-03 No 4 mg = 2 Me moria 2-20 mL, l 15:28: Injection, Jeffery 00 IV Push, q15min PRN for nausea/vom iting, order duration: 2 doses, first dose 02/24/21 9:28:00 FIREARMS INSTRU[employer], stop date Limited # of times promethazin 2020-03 No 12.5 mg, Me moria e IVPB 2-20 Injection, l 15:28: IV Hubbard 00 Piggyback, Once PRN for severe nausea, infuse over 15 minutes, first dose 02/24/21 9:28:00 FIREARMS INSTRUCTOR Diphenhydra 2020-03 No 12.5 mg = M emoria mine 2-20 0.25 mL, l 15:28: Injection, Hubbard 00 IV Push, q15min PRN for allergy symptoms, order duration: 2 doses, first dose 02/24/21 9:28:00 FIREARMS INSTRUCTOR, stop date Limited # of times Acetaminoph 2020-03 No Notes: Max Memoria en 325 MG / 2-20 4gm l Hydrocodone 15:28: acetaminop Hubbard Bitartrate 00 hen in 24 5 MG Oral hours Tablet [[place] 5/325] Saline Lock 2020-03 No 20 mL, Raúl holland Flush 2-20 Soln, IV l 15:28: Push, As Jeffery 00 Indicated PRN for flush, first dose 02/24/21 9:28:00 FIREARMS INSTRUCTOR Labetalol 2020-03 No 60, SBP Memor ia 2-20 Hold l 15:28: Parameter: Jeffery 00 less than 100 mmHg, HR Hold Parameter: less than 5... Hydralazine 2020-03 No 100, if Mem oria 2-20 HR<60 l 15:28: and/or Hubbard 00 labetalol 25mg reached., SBP Hold Parameter: less than 100 mmHg Demerol HCl 2020-03 No 12.5 mg = M emoria 2-20 0.5 mL, l 15:28: Injection, Jeffery 00 IV Push, q5min PRN for shivers, order duration: 2 doses, first dose 02/24/21 9:28:00 FIREARMS INSTRUCTOR, stop date Limited # of times Fentanyl 2020-03 No 25 mcg = Memor ia 2-20 0.5 mL, l 15:28: Injection, Hubbard 00 IV Push, q5min PRN for pain mild-moder ate (1-6), order duration: 2 doses, first dose 02/24/21 9:28:00 FIREARMS INSTRUCTOR, stop date Limited # of times, if pain still unrelieved after second dose, notify Anesthesio logist for further orders Ondansetron 2020-03 No 4 mg = 2 Me moria 2-20 mL, l 15:28: Injection, Hubbard 00 IV Push, q15min PRN for nausea/vom iting, order duration: 2 doses, first dose 02/24/21 9:28:00 FIREARMS INSTRUCTOR, stop date Limited # of times promethazin 2020-03 No 12.5 mg, Me moria e IVPB 2-20 Injection, l 15:28: IV Hubbard 00 Piggyback, Once PRN for severe nausea, infuse over 15 minutes, first dose 02/24/21 9:28:00 FIREARMS INSTRU[employer] Diphenhydra 2020-03 No 12.5 mg = M emoria mine 2-20 0.25 mL, l 15:28: Injection, Hubbard 00 IV Push, q15min PRN for allergy symptoms, order duration: 2 doses, first dose 02/24/21 9:28:00 FIREARMS INSTRUCTOR, stop date Limited # of times Acetaminoph 2020-03 No Notes: Max Memoria en 325 MG / 2-20 4gm l Hydrocodone 15:28: acetaminop Hubbard Bitartrate 00 hen in 24 5 MG Oral hours Tablet [[place] 5/325] Saline Lock 2020-03 No 20 mL, Raúl holland Flush 2-20 Soln, IV l 15:28: Push, As Hubbard 00 Indicated PRN for flush, first dose 02/24/21 9:28:00 FIREARMS INSTRUCTOR Labetalol 2020-03 No 60, SBP Memor ia 2-20 Hold l 15:28: Parameter: Jeffery 00 less than 100 mmHg, HR Hold Parameter: less than 5... Hydralazine 2020-03 No 100, if Mem oria 2-20 HR<60 l 15:28: and/or Hubbard 00 labetalol 25mg reached., SBP Hold Parameter: less than 100 mmHg Demerol HCl 2020-03 No 12.5 mg = M emoria 2-20 0.5 mL, l 15:28: Injection, Jeffery 00 IV Push, q5min PRN for shivers, order duration: 2 doses, first dose 02/24/21 9:28:00 FIREARMS INSTRUCTOR, stop date Limited # of times Fentanyl 2020-03 No 25 mcg = Memor ia 2-20 0.5 mL, l 15:28: Injection, Hubbard 00 IV Push, q5min PRN for pain mild-moder ate (1-6), order duration: 2 doses, first dose 02/24/21 9:28:00 FIREARMS INSTRUCTOR, stop date Limited # of times, if pain still unrelieved after second dose, notify Anesthesio logist for further orders Ondansetron 2020-03 No 4 mg = 2 Me moria 2-20 mL, l 15:28: Injection, Hubbard 00 IV Push, q15min PRN for nausea/vom iting, order duration: 2 doses, first dose 02/24/21 9:28:00 FIREARMS INSTRUCTOR, stop date Limited # of times promethazin 2020-03 No 12.5 mg, Me moria e IVPB 2-20 Injection, l 15:28: IV Jeffery 00 Piggyback, Once PRN for severe nausea, infuse over 15 minutes, first dose 02/24/21 9:28:00 FIREARMS INSTRUCTOR Diphenhydra 2020-03 No 12.5 mg = M emoria mine 2-20 0.25 mL, l 15:28: Injection, Jeffery 00 IV Push, q15min PRN for allergy symptoms, order duration: 2 doses, first dose 02/24/21 9:28:00 FIREARMS INSTRUCTOR, stop date Limited # of times Acetaminoph 2020-03 No Notes: Max Memoria en 325 MG / 2-20 4gm l Hydrocodone 15:28: acetaminop Hubbard Bitartrate 00 hen in 24 5 MG Oral hours Tablet [[place] 5/325] Saline Lock 2020-03 No 20 mL, Raúl holland Flush 2-20 Soln, IV l 15:28: Push, As Hubbard 00 Indicated PRN for flush, first dose 02/24/21 9:28:00 FIREARMS INSTRUCTOR Labetalol 2020-03 No 60, SBP Memor ia 2-20 Hold l 15:28: Parameter: Hubbard 00 less than 100 mmHg, HR Hold [...] duration: 2 doses, first dose 02/24/21 9:28:00 FIREARMS INSTRUCTOR, stop date Limited # of times Fentanyl 2020-03 No 25 mcg = Memor ia 2-20 0.5 mL, l 15:28: Injection, Jeffery 00 IV Push, q5min PRN for pain mild-moder ate (1-6), order duration: 2 doses, first dose 02/24/21 9:28:00 FIREARMS INSTRUCTOR, stop date Limited # of times, if pain still unrelieved after second dose, notify Anesthesio logist for further orders Ondansetron 2020-03 No 4 mg = 2 Me moria 2-20 mL, l 15:28: Injection, Hubbard 00 IV Push, q15min PRN for nausea/vom iting, order duration: 2 doses, first dose 02/24/21 9:28:00 FIREARMS INSTRUCTOR, stop date Limited # of times promethazin 2020-03 No 12.5 mg, Me moria e IVPB 2-20 Injection, l 15:28: IV Hubbard 00 Piggyback, Once PRN for severe nausea, infuse over 15 minutes, first dose 02/24/21 9:28:00 FIREARMS INSTRUCTOR Diphenhydra 2020-03 No 12.5 mg = M emoria mine 2-20 0.25 mL, l 15:28: Injection, Hubbard 00 IV Push, q15min PRN for allergy symptoms, order duration: 2 doses, first dose 02/24/21 9:28:00 FIREARMS INSTRUCTOR, stop date Limited # of times Acetaminoph 2020-03 No Notes: Max Memoria en 325 MG / 2-20 4gm l Hydrocodone 15:28: acetaminop Jeffery Bitartrate 00 hen in 24 5 MG Oral hours Tablet [[place] 5/325] Lactated 2020-03 No IV, start Raúl holland Ringers 2-20 date l Injection 15:26: 02/24/21 Herm justo 00 9:26:00 FIREARMS INSTRUCTOR, stop date 02/24/21 9:26:00 FIREARMS INSTRUCTOR Lactated 2020-03 No IV, start Raúl holland Ring[place] 2-20 date l Injection 15:26: 02/24/21 Herm justo 00 9:26:00 FIREARMS INSTRUCTOR, stop date 02/24/21 9:26:00 FIREARMS INSTRUCTOR Lactated 2020-03 No IV, start Raúl holland Ringers 2-20 date l Injection 15:26: 02/24/21 Herm justo 00 9:26:00 FIREARMS INSTRUCTOR, stop date 02/24/21 9:26:00 FIREARMS INSTRUCTOR Lactated 2020-03 No IV, start Raúl holland Ringers 2-20 date l Injection 15:26: 02/24/21 Herm justo 00 9:26:00 FIREARMS INSTRUCTOR, stop date 02/24/21 9:26:00 FIREARMS INSTRUCTOR Lactated 2020-03 No IV, start Raúl holland Ringers 2-20 date l Injection 15:26: 02/24/21 Herm justo 00 9:26:00 FIREARMS INSTRUCTOR, stop date 02/24/21 9:26:00 FIREARMS INSTRUCTOR Lactated 2020-03 No IV, start Raúl holland Ringers 2-20 date l Injection 15:26: 02/24/21 Herm justo 00 9:26:00 FIREARMS INSTRUCTOR, stop date 02/24/21 9:26:00 FIREARMS INSTRUCTOR Lactated 2020-03 No IV, start Raúl holland Ringers 2-20 date l Injection 15:26: 02/24/21 Herm justo 00 9:26:00 FIREARMS INSTRUCTOR, stop date 02/24/21 9:26:00 FIREARMS INSTRUCTOR Lactated 2020-03 No IV, start Raúl holland Ringers 2-20 date l Injection 15:26: 02/24/21 Herm justo 00 9:26:00 FIREARMS INSTRUCTOR, stop date 02/24/21 9:26:00 FIREARMS INSTRUCTOR propofol 2020-03 No 120 mg = Memor ia 2-20 12 mL, l 15:23: Emulsion, Jeffery 00 IV, Once, first dose 02/24/21 9:23:00 FIREARMS INSTRUCTOR, stop date 02/24/21 9:23:00 FIREARMS INSTRUCTOR propofol 2020-03 No 120 mg = Memor ia 2-20 12 mL, l 15:23: Emulsion, Hubbard 00 IV, Once, first dose 02/24/21 9:23:00 FIREARMS INSTRUCTOR, stop date 02/24/21 9:23:00 FIREARMS INSTRUCTOR propofol 2020-03 No 120 mg = Memor ia 2-20 12 mL, l 15:23: Emulsion, Hubbard 00 IV, Once, first dose 02/24/21 9:23:00 FIREARMS INSTRUCTOR, stop date 02/24/21 9:23:00 FIREARMS INSTRUCTOR propofol 2020-03 No 120 mg = Memor ia 2-20 12 mL, l 15:23: Emulsion, Hubbard 00 IV, Once, first dose 02/24/21 9:23:00 FIREARMS INSTRUCTOR, stop date 02/24/21 9:23:00 FIREARMS INSTRUCTOR propofol 2020-03 No 120 mg = Memor ia 2-20 12 mL, l 15:23: Emulsion, Jeffery 00 IV, Once, first dose 02/24/21 9:23:00 FIREARMS INSTRUCTOR, stop date 02/24/21 9:23:00 FIREARMS INSTRUCTOR propofol 2020-03 No 120 mg = Memor ia 2-20 12 mL, l 15:23: Emulsion, Hubbard 00 IV, Once, first dose 02/24/21 9:23:00 FIREARMS INSTRUCTOR, stop date 02/24/21 9:23:00 FIREARMS INSTRUCTOR propofol 2020-03 No 120 mg = Memor ia 2-20 12 mL, l 15:23: Emulsion, Hubbard 00 IV, Once, first dose 02/24/21 9:23:00 FIREARMS INSTRUCTOR, stop date 02/24/21 9:23:00 FIREARMS INSTRUCTOR propofol 2020-03 No 120 mg = Memor ia 2-20 12 mL, l 15:23: Emulsion, Hubbard 00 IV, Once, first dose 02/24/21 9:23:00 FIREARMS INSTRUCTOR, stop date 02/24/21 9:23:00 FIREARMS INSTRUCTOR Cefazolin 2020-03 No 2 gm, Memoria 2-20 Soln-IV, l 15:00: IV Jeffery 00 Piggyback, Once, infuse over 30 minutes, first dose 02/24/21 9:00:00 FIREARMS INSTRUCTOR, stop date 02/24/21 9:00:00 FIREARMS INSTRUCTOR, Prophylaxi s Midazolam 2020-03 No 2 mg = 2 Raúl holland 2-20 mL, l 15:00: Injection, Hubbard 00 IV Push, Once, first dose 02/24/21 9:00:00 FIREARMS INSTRUCTOR, stop date 02/24/21 9:00:00 FIREARMS INSTRUCTOR Cefazolin 2020-03 No 2 gm, Memoria 2-20 Soln-IV, l 15:00: IV Hubbard 00 Piggyback, Once, infuse over 30 minutes, first dose 02/24/21 9:00:00 FIREARMS INSTRUCTOR, stop date 02/24/21 9:00:00 FIREARMS INSTRUCTOR, Prophylaxi s Midazolam 2020-03 No 2 mg = 2 Raúl holland 2-20 mL, l 15:00: Injection, Jeffery 00 IV Push, Once, first dose 02/24/21 9:00:00 FIREARMS INSTRUCTOR, stop date 02/24/21 9:00:00 FIREARMS INSTRUCTOR Cefazolin 2020-03 No 2 gm, Memoria 2-20 Soln-IV, l 15:00: IV Jeffery 00 Piggyback, Once, infuse over 30 minutes, first dose 02/24/21 9:00:00 FIREARMS INSTRUCTOR, stop date 02/24/21 9:00:00 FIREARMS INSTRUCTOR, Prophylaxi s Midazolam 2020-03 No 2 mg = 2 Raúl holland 2-20 mL, l 15:00: Injection, Hubbard IV Push, Once, first dose 02/24/21 9:00:00 FIREARMS INSTRUCTOR, stop date 02/24/21 9:00:00 FIREARMS INSTRUCTOR Cefazolin 2020-03 No 2 gm, Memoria 2-20 Soln-IV, l 15:00: IV Jeffery Piggyback, Once, infuse over 30 minutes, first dose 02/24/21 9:00:00 FIREARMS INSTRUCTOR, stop date 02/24/21 9:00:00 FIREARMS INSTRUCTOR, Prophylaxi s Midazolam 2020-03 No 2 mg = 2 Raúl holland 2-20 mL, l 15:00: Injection, Jeffery 00 IV Push, Once, first dose 02/24/21 9:00:00 FIREARMS INSTRUCTOR, stop date 02/24/21 9:00:00 FIREARMS INSTRUCTOR Cefazolin 2020-03 No 2 gm, Memoria 2-20 Soln-IV, l 15:00: IV Hubbard 00 Piggyback, Once, infuse over 30 minutes, first dose 02/24/21 9:00:00 FIREARMS INSTRUCTOR, stop date 02/24/21 9:00:00 FIREARMS INSTRUCTOR, Prophylaxi s Midazolam 2020-03 No 2 mg = 2 Raúl holland 2-20 mL, l 15:00: Injection, Jeffery 00 IV Push, Once, first dose 02/24/21 9:00:00 FIREARMS INSTRUCTOR, stop date 02/24/21 9:00:00 FIREARMS INSTRUCTOR Cefazolin 2020-03 No 2 gm, Memoria 2-20 Soln-IV, l 15:00: IV Hubbard 00 Piggyback, Once, infuse over 30 minutes, first dose 02/24/21 9:00:00 FIREARMS INSTRUCTOR, stop date 02/24/21 9:00:00 FIREARMS INSTRUCTOR, Prophylaxi s Midazolam 2020-03 No 2 mg = 2 Raúl holland 2-20 mL, l 15:00: Injection, Jeffery 00 IV Push, Once, first dose 02/24/21 9:00:00 FIREARMS INSTRUCTOR, stop date 02/24/21 9:00:00 FIREARMS INSTRUCTOR Cefazolin 2020-03 No 2 gm, Memoria 2-20 Soln-IV, l 15:00: IV Hubbard 00 Piggyback, Once, infuse over 30 minutes, first dose 02/24/21 9:00:00 FIREARMS INSTRUCTOR, stop date 02/24/21 9:00:00 FIREARMS INSTRUCTOR, Prophylaxi s Midazolam 2020-03 No 2 mg = 2 Raúl holland 2-20 mL, l 15:00: Injection, Hubbard 00 IV Push, Once, first dose 02/24/21 9:00:00 FIREARMS INSTRUCTOR, stop date 02/24/21 9:00:00 FIREARMS INSTRUCTOR Cefazolin 2020-03 No 2 gm, Memoria 2-20 Soln-IV, l 15:00: IV Hubbard 00 Piggyback, Once, infuse over 30 minutes, first dose 02/24/21 9:00:00 FIREARMS INSTRUCTOR, stop date 02/24/21 9:00:00 FIREARMS INSTRUCTOR, Prophylaxi s Midazolam 2020-03 No 2 mg = 2 Raúl holland 2-20 mL, l 15:00: Injection, Hubbard 00 IV Push, Once, first dose 02/24/21 9:00:00 FIREARMS INSTRUCTOR, stop date 02/24/21 9:00:00 FIREARMS INSTRUCTOR ketamine 2020-03 No 20 mg = 2 Raúl holland 2-20 mL, l 14:45: Injection, Jeffery 00 IV, Once, first dose 02/24/21 8:45:00 FIREARMS INSTRUCTOR, stop date 02/24/21 8:45:00 FIREARMS INSTRUCTOR ketamine 2020-03 No 20 mg = 2 Raúl holland 2-20 mL, l 14:45: Injection, Jeffery 00 IV, Once, first dose 02/24/21 8:45:00 FIREARMS INSTRUCTOR, stop date 02/24/21 8:45:00 FIREARMS INSTRUCTOR ketamine 2020-03 No 20 mg = 2 Raúl holland 2-20 mL, l 14:45: Injection, Jeffery 00 IV, Once, first dose 02/24/21 8:45:00 FIREARMS INSTRUCTOR, stop date 02/24/21 8:45:00 FIREARMS INSTRUCTOR ketamine 2020-03 No 20 mg = 2 Raúl holland 2-20 mL, l 14:45: Injection, Jeffery 00 IV, Once, first dose 02/24/21 8:45:00 FIREARMS INSTRUCTOR, stop date 02/24/21 8:45:00 FIREARMS INSTRUCTOR ketamine 2020-03 No 20 mg = 2 Raúl holland 2-20 mL, l 14:45: Injection, Hubbard 00 IV, Once, first dose 02/24/21 8:45:00 FIREARMS INSTRUCTOR, stop date 02/24/21 8:45:00 FIREARMS INSTRUCTOR ketamine 2020-03 No 20 mg = 2 Raúl holland 2-20 mL, l 14:45: Injection, Jeffery 00 IV, Once, first dose 02/24/21 8:45:00 FIREARMS INSTRUCTOR, stop date 02/24/21 8:45:00 FIREARMS INSTRUCTOR ketamine 2020-03 No 20 mg = 2 Raúl holland 2-20 mL, l 14:45: Injection, Hubbard 00 IV, Once, first dose 02/24/21 8:45:00 FIREARMS INSTRUCTOR, stop date 02/24/21 8:45:00 FIREARMS INSTRUCTOR ketamine 2020-03 No 20 mg = 2 Raúl holland 2-20 mL, l 14:45: Injection, Jeffery 00 IV, Once, first dose 02/24/21 8:45:00 FIREARMS INSTRUCTOR, stop date 02/24/21 8:45:00 FIREARMS INSTRUCTOR ketamine 2020-03 No 30 mg = 3 Raúl holland 2-20 mL, l 14:39: Injection, Jeffery 00 IV, Once, first dose 02/24/21 8:39:00 FIREARMS INSTRUCTOR, stop date 02/24/21 8:39:00 FIREARMS INSTRUCTOR ketamine 2020-03 No 30 mg = 3 Rúal holland 2-20 mL, l 14:39: Injection, Jeffery 00 IV, Once, first dose 02/24/21 8:39:00 FIREARMS INSTRUCTOR, stop date 02/24/21 8:39:00 FIREARMS INSTRUCTOR ketamine 2020-03 No 30 mg = 3 Raúl holland 2-20 mL, l 14:39: Injection, Hubbard 00 IV, Once, first dose 02/24/21 8:39:00 FIREARMS INSTRUCTOR, stop date 02/24/21 8:39:00 FIREARMS INSTRUCTOR ketamine 2020-03 No 30 mg = 3 Raúl holland 2-20 mL, l 14:39: Injection, Jeffery 00 IV, Once, first dose 02/24/21 8:39:00 FIREARMS INSTRUCTOR, stop date 02/24/21 8:39:00 FIREARMS INSTRUCTOR ketamine 2020-03 No 30 mg = 3 Raúl holland 2-20 mL, l 14:39: Injection, Jeffery 00 IV, Once, first dose 02/24/21 8:39: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, 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 02/24/21 8:39:00 FIREARMS INSTRUCTOR ketamine 2020-03 No 30 mg = 3 Raúl holland 2-20 mL, l 14:39: Injection, Hubbard 00 IV, Once, first dose 02/24/21 8:39:00 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, stop date 02/24/21 8:39:00 FIREARMS INSTRUCTOR ketamine 2020-03 No 30 mg = 3 Raúl holland 2-20 mL, l 14:39: Injection, Jeffery 00 IV, Once, first dose 02/24/21 8:39:00 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, stop date 02/24/21 8:39:00 FIREARMS INSTRUCTOR ketamine 2020-03 No 30 mg = 3 Raúl holland 2-20 mL, l 14:39: Injection, Hubbard 00 IV, Once, first dose 02/24/21 8:39:00 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, stop date 02/24/21 8:39:00 FIREARMS INSTRUCTOR ondansetron 2020-03 No 4 mg = 2 Me moria 2-20 mL, l 14:37: Injection, Hubbard 00 IV, Once, first dose 02/24/21 8:37:00 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, stop date 02/24/21 8:37:00 FIREARMS INSTRUCTOR famotidine 2020-03 No 20 mg, Memor ia 2-20 Injection, l 14:37: IV, Once, Jeffery 00 first dose 02/24/21 8:37:00 FIREARMS INSTRUCTOR, stop date 02/24/21 8:37:00 FIREARMS INSTRUCTOR ondansetron 2020-03 No 4 mg = 2 Me moria 2-20 mL, l 14:37: Injection, Jeffery 00 IV, Once, first dose 02/24/21 8:37:00 [employer], stop date 02/24/21 8:37:00 [employer] famotidine 2020-03 No 20 mg, Memor ia 2-20 Injection, l 14:37: IV, Once, Hubbard 00 first dose 02/24/21 8:37:00 [employer], stop date 02/24/21 8:37:00 [employer] ondansetron 2020- No 4 mg = 2 Me moria 2-20 mL, l 14:37: Injection, Hubbard 00 IV, Once, first dose 02/24/21 8:37:00 [employer], stop date 02/24/21 8:37:00 [employer] famotidine 2020-1 No 20 mg, Memor ia 2-20 Injection, l 14:37: IV, Once, first dose 02/24/21 8:37:00 [employer], stop date 02/24/21 8:37:00 [employer] ondansetron 2020- No 4 mg = 2 Me moria 2-20 mL, l 14:37: Injection, IV, Once, first dose 02/24/21 8:37:00 [employer], stop date 02/24/21 8:37:00 [employer] famotidine 2020-1 No 20 mg, Memor ia 2-20 Injection, l 14:37: IV, Once, first dose 02/24/21 8:37:00 [employer], stop date 02/24/21 8:37:00 [employer] ondansetron 2020- No 4 mg = 2 Me moria 2-20 mL, l 14:37: Injection, IV, Once, first dose 02/24/21 8:37:00 [employer], stop date 02/24/21 8:37:00 [employer] famotidine 2020- No 20 mg, Memor ia 2-20 Injection, l 14:37: IV, Once, first dose 02/24/21 8:37:00 [employer], stop date 02/24/21 8:37:00 [employer] ondansetron 2020-1 No 4 mg = 2 Me moria 2-20 mL, l 14:37: Injection, Hubbard 00 IV, Once, first dose 02/24/21 8:37:00 [employer], stop date 02/24/21 8:37:00 [employer] famotidine 2020-1 No 20 mg, Memor ia 2-20 Injection, l 14:37: IV, Once, first dose 02/24/21 8:37:00 [employer], stop date 02/24/21 8:37:00 [employer] ondansetron 2020-03 No 4 mg = 2 Me moria 2-20 mL, l 14:37: Injection, Hubbard 00 IV, Once, first dose 02/24/21 8:37:00 FIREARMS INSTRUCTOR, stop date 02/24/21 8:37:00 FIREARMS INSTRUCTOR famotidine 2020-03 No 20 mg, Memor ia 2-20 Injection, l 14:37: IV, Once, Jeffery 00 first dose 02/24/21 8:37:00 FIREARMS INSTRUCTOR, stop date 02/24/21 8:37:00 FIREARMS INSTRUCTOR ondansetron 2020-03 No 4 mg = 2 Me moria 2-20 mL, l 14:37: Injection, Jeffery 00 IV, Once, first dose 02/24/21 8:37:00 FIREARMS INSTRUCTOR, stop date 02/24/21 8:37:00 FIREARMS INSTRUCTOR famotidine 2020-03 No 20 mg, Memor ia 2-20 Injection, l 14:37: IV, Once, Hubbard 00 first dose 02/24/21 8:37:00 FIREARMS INSTRUCTOR, stop date 02/24/21 8:37:00 FIREARMS INSTRUCTOR fentaNYL 2020-03 No 100 mcg = Raúl holland 2-20 2 mL, l 14:35: Injection, Jeffery 00 IV, Once, first dose 02/24/21 8:35:00 FIREARMS INSTRUCTOR, stop date 02/24/21 8:35:00 FIREARMS INSTRUCTOR lidocaine 2020-03 No 30 mg = 3 Mem oria 2-20 mL, l 14:35: Injection, Hubbard 00 IV, Once, first dose 02/24/21 8:35:00 FIREARMS INSTRUCTOR, stop date 02/24/21 8:35:00 FIREARMS INSTRUCTOR fentaNYL 2020-03 No 100 mcg = Raúl holland 2-20 2 mL, l 14:35: Injection, Hubbard 00 IV, Once, first dose 02/24/21 8:35:00 FIREARMS INSTRUCTOR, stop date 02/24/21 8:35:00 FIREARMS INSTRUCTOR lidocaine 2020-03 No 30 mg = 3 Mem oria 2-20 mL, l 14:35: Injection, Jeffery 00 IV, Once, first dose 02/24/21 8:35:00 FIREARMS INSTRUCTOR, stop date 02/24/21 8:35:00 FIREARMS INSTRUCTOR fentaNYL 2020-03 No 100 mcg = Raúl holland 2-20 2 mL, l 14:35: Injection, Jeffery 00 IV, Once, first dose 02/24/21 8:35:00 FIREARMS INSTRUCTOR, stop date 02/24/21 8:35:00 FIREARMS INSTRUCTOR lidocaine 2020-03 No 30 mg = 3 Mem oria 2-20 mL, l 14:35: Injection, Jeffery 00 IV, Once, first dose 02/24/21 8:35:00 FIREARMS INSTRUCTOR, stop date 02/24/21 8:35:00 FIREARMS INSTRUCTOR fentaNYL 2020-03 No 100 mcg = Raúl holland 2-20 2 mL, l 14:35: Injection, Hubbard 00 IV, Once, first dose 02/24/21 8:35:00 FIREARMS INSTRUCTOR, stop date 02/24/21 8:35:00 FIREARMS INSTRUCTOR lidocaine 2020-03 No 30 mg = 3 Mem oria 2-20 mL, l 14:35: Injection, Hubbard 00 IV, Once, first dose 02/24/21 8:35:00 FIREARMS INSTRUCTOR, stop date 02/24/21 8:35:00 FIREARMS INSTRUCTOR fentaNYL 2020-03 No 100 mcg = Raúl holland 2-20 2 mL, l 14:35: Injection, Hubbard 00 IV, Once, first dose 02/24/21 8:35:00 FIREARMS INSTRUCTOR, stop date 02/24/21 8:35:00 FIREARMS INSTRUCTOR lidocaine 2020-03 No 30 mg = 3 Mem oria 2-20 mL, l 14:35: Injection, Hubbard 00 IV, Once, first dose 02/24/21 8:35:00 FIREARMS INSTRUCTOR, stop date 02/24/21 8:35:00 FIREARMS INSTRUCTOR fentaNYL 2020-03 No 100 mcg = Raúl holland 2-20 2 mL, l 14:35: Injection, Jeffery 00 IV, Once, first dose 02/24/21 8:35:00 FIREARMS INSTRUCTOR, stop date 02/24/21 8:35:00 FIREARMS INSTRUCTOR lidocaine 2020-03 No 30 mg = 3 Mem oria 2-20 mL, l 14:35: Injection, Hubbard 00 IV, Once, first dose 02/24/21 8:35:00 FIREARMS INSTRUCTOR, stop date 02/24/21 8:35:00 FIREARMS INSTRUCTOR fentaNYL 2020-03 No 100 mcg = Raúl holland 2-20 2 mL, l 14:35: Injection, Jeffery 00 IV, Once, first dose 02/24/21 8:35:00 FIREARMS INSTRUCTOR, stop date 02/24/21 8:35:00 FIREARMS INSTRUCTOR lidocaine 2020-03 No 30 mg = 3 Mem oria 2-20 mL, l 14:35: Injection, IV, Once, first dose 02/24/21 8:35:00 FIREARMS INSTRUCTOR, stop date 02/24/21 8:35:00 FIREARMS INSTRUCTOR fentaNYL 2020- No 100 mcg = Raúl holland 2-20 2 mL, l 14:35: Injection, IV, Once, first dose 02/24/21 8:35:00 FIREARMS INSTRUCTOR, stop date 02/24/21 8:35:00 FIREARMS INSTRUCTOR lidocaine 2020-03 No 30 mg = 3 Mem oria 2-20 mL, l 14:35: Injection, IV, Once, first dose 02/24/21 8:35:00 FIREARMS INSTRUCTOR, stop date 02/24/21 8:35:00 FIREARMS INSTRUCTOR ceFAZolin 2020-03 No 2 gm, Memoria 2-20 Soln-IV, l 14:28: IV, Once, first dose 02/24/21 8:28:00 FIREARMS INSTRUCTOR, stop date 02/24/21 8:28:00 FIREARMS INSTRUCTOR ceFAZolin 2020-03 No 2 gm, Memoria 2-20 Soln-IV, l 14:28: IV, Once, first dose 02/24/21 8:28:00 FIREARMS INSTRUCTOR, stop date 02/24/21 8:28:00 FIREARMS INSTRUCTOR ceFAZolin 2020- No 2 gm, Memoria 2-20 Soln-IV, l 14:28: IV, Once, first dose 02/24/21 8:28:00 FIREARMS INSTRUCTOR, stop date 02/24/21 8:28:00 FIREARMS INSTRUCTOR ceFAZolin 2020-1 No 2 gm, Memoria 2-20 Soln-IV, l 14:28: IV, Once, first dose 02/24/21 8:28:00 FIREARMS INSTRUCTOR, stop date 02/24/21 8:28:00 FIREARMS INSTRUCTOR ceFAZolin 2020-1 No 2 gm, Memoria 2-20 Soln-IV, l 14:28: IV, Once, first dose 02/24/21 8:28:00 FIREARMS INSTRUCTOR, stop date 02/24/21 8:28:00 FIREARMS INSTRUCTOR ceFAZolin 2020-1 No 2 gm, Memoria 2-20 Soln-IV, l 14:28: IV, Once, first dose 02/24/21 8:28:00 FIREARMS INSTRUCTOR, stop date 02/24/21 8:28:00 FIREARMS INSTRUCTOR ceFAZolin 2020-03 No 2 gm, Memoria 2-20 Soln-IV, l 14:28: IV, Once, first dose 02/24/21 8:28:00 FIREARMS INSTRUCTOR, stop date 02/24/21 8:28:00 FIREARMS INSTRUCTOR ceFAZolin 2020-03 No 2 gm, Memoria 2-20 Soln-IV, l 14:28: IV, Once, first dose 02/24/21 8:28:00 FIREARMS INSTRUCTOR, stop date 02/24/21 8:28:00 FIREARMS INSTRUCTOR Lidocaine 2020-03 No 5 mg = 0.5 Me moria pf IV start 2-20 mL, l 0.5mL 14:00: Injection, Delroy n [TOPS] 00 Subcutaneo us, Once, first dose 02/24/21 8:00:00 FIREARMS INSTRUCTOR, stop date 02/24/21 8:00:00 FIREARMS INSTRUCTOR, For IV Start Lidocaine 2020-03 No 5 mg = 0.5 Me moria pf IV start 2-20 mL, l 0.5mL 14:00: Injection, Delroy n [TOPS] 00 Subcutaneo us, Once, first dose 02/24/21 8:00:00 FIREARMS INSTRUCTOR, stop date 02/24/21 8:00:00 FIREARMS INSTRUCTOR, For IV Start Lidocaine 2020-03 No 5 mg = 0.5 Me moria pf IV start 2-20 mL, l 0.5mL 14:00: Injection, Delroy n [TOPS] 00 Subcutaneo us, Once, first dose 02/24/21 8:00:00 FIREARMS INSTRUCTOR, stop date 02/24/21 8:00:00 FIREARMS INSTRUCTOR, For IV Start Lidocaine 2020-03 No 5 mg = 0.5 Me moria pf IV start 2-20 mL, l 0.5mL 14:00: Injection, Delroy n [TOPS] 00 Subcutaneo us, Once, first dose 02/24/21 8:00:00 FIREARMS INSTRUCTOR, stop date 02/24/21 8:00:00 FIREARMS INSTRUCTOR, For IV Start Lidocaine 2020-03 No 5 mg = 0.5 Me moria pf IV start 2-20 mL, l 0.5mL 14:00: Injection, Delroy n [TOPS] 00 Subcutaneo us, Once, first dose 02/24/21 8:00:00 FIREARMS INSTRUCTOR, stop date 02/24/21 8:00:00 FIREARMS INSTRUCTOR, For IV Start Lidocaine 2020-03 No 5 mg = 0.5 Me moria pf IV start 2-20 mL, l 0.5mL 14:00: Injection, Delroy n [TOPS] 00 Subcutaneo us, Once, first dose 02/24/21 8:00:00 FIREARMS INSTRUCTOR, stop date 02/24/21 8:00:00 FIREARMS INSTRUCTOR, For IV Start Lidocaine 2020-03 No 5 mg = 0.5 Me moria pf IV start 2-20 mL, l 0.5mL 14:00: Injection, Delroy n [TOPS] 00 Subcutaneo us, Once, first dose 02/24/21 8:00:00 FIREARMS INSTRUCTOR, stop date 02/24/21 8:00:00 FIREARMS INSTRUCTOR, For IV Start Lidocaine 2020-03 No 5 mg = 0.5 Me moria pf IV start 2-20 mL, l 0.5mL 14:00: Injection, Delroy n [TOPS] 00 Subcutaneo us, Once, first dose 02/24/21 8:00:00 FIREARMS INSTRUCTOR, stop date 02/24/21 8:00:00 FIREARMS INSTRUCTOR, For IV Start LR 1,000 mL 2020-03 No 1,000 mL, M emoria 2-20 IV, 100 l 13:48: mL/hr, start date 02/24/21 7:48:00 FIREARMS INSTRUCTOR, For Adults unless there is a known renal disease then use Normal Saline, 1.7, m2 LR 1,000 mL 2020-03 No 1,000 mL, M emoria 2-20 IV, 100 l 13:48: mL/hr, start date 02/24/21 7:48:00 FIREARMS INSTRUCTOR, For Adults unless there is a known renal disease then use Normal Saline, 1.7, m2 LR 1,000 mL 2020-03 No 1,000 mL, M emoria 2-20 IV, 100 l 13:48: mL/hr, start date 02/24/21 7:48:00 FIREARMS INSTRUCTOR, For Adults unless there is a known renal disease then use Normal Saline, 1.7, m2 LR 1,000 mL 2020-03 No 1,000 mL, M emoria 2-20 IV, 100 l 13:48: mL/hr, start date 02/24/21 7:48:00 FIREARMS INSTRUCTOR, For Adults unless there is a known renal disease then use Normal Saline, 1.7, m2 LR 1,000 mL 2020-03 No 1,000 mL, M emoria 2-20 IV, 100 l 13:48: mL/hr, start date 02/24/21 7:48:00 FIREARMS INSTRUCTOR, For Adults unless there is a known renal disease then use Normal Saline, 1.7, m2 LR 1,000 mL 2020-03 No 1,000 mL, M emoria 2-20 IV, 100 l 13:48: mL/hr, start date 02/24/21 7:48:00 FIREARMS INSTRUCTOR, For Adults unless there is a known renal disease then use Normal Saline, 1.7, m2 LR 1,000 mL 2020-03 No 1,000 mL, M emoria 2-20 IV, 100 l 13:48: mL/hr, start date 02/24/21 7:48:00 FIREARMS INSTRUCTOR, For Adults unless there is a known renal disease then use Normal Saline, 1.7, m2 LR 1,000 mL 2020-03 No 1,000 mL, M emoria 2-20 IV, 100 l 13:48: mL/hr, start date 02/24/21 7:48:00 FIREARMS INSTRUCTOR, For Adults unless there is a known [...] Persistent TAKE ONE [facility] (IMITREX) 2- headaches (1) TABLET [facility] 100 MG 00:00: 00:00 (100 MG Medical tablet 00 :00 TOTAL) BY Center MOUTH 2 (TWO) TIMES DAILY NEEDED. SUMAtriptan 2020-03- No Persistent TAKE ONE [facility] (IMITREX) 2- headaches (1) TABLET [facility] 100 MG 00:00: 00:00 (100 MG Medical tablet 00 :00 TOTAL) BY Center MOUTH 2 (TWO) TIMES DAILY NEEDED. SUMAtriptan 2020-03- No Persistent TAKE ONE [facility] (IMITREX) 2- headaches (1) TABLET [facility] 100 MG 00:00: 00:00 (100 MG Medical tablet 00 :00 TOTAL) BY Center MOUTH 2 (TWO) TIMES DAILY NEEDED. SUMAtriptan 2020-03- No Persistent TAKE ONE [facility] (IMITREX) 2- headaches (1) TABLET [facility] 100 MG 00:00: 00:00 (100 MG Medical tablet 00 :00 TOTAL) BY Center MOUTH 2 (TWO) TIMES DAILY NEEDED. SUMAtriptan 2020-03- No Persistent TAKE ONE [facility] (IMITREX) 04-13 headaches (1) TABLET [facility] 100 MG 00:00: [...] Persistent TAKE ONE [facility] (IMITREX) 03-30 headaches (1) TABLET [facility] 100 MG 00:00: 00:00 (100 MG Medical tablet 00 :00 TOTAL) BY Center MOUTH 2 (TWO) TIMES DAILY NEEDED. SUMAtriptan 2020-03- No Persistent TAKE ONE [facility] (IMITREX) 03-30 headaches (1) TABLET [facility] 100 MG 00:00: 00:00 (100 MG Medical tablet 00 :00 TOTAL) BY Center MOUTH 2 (TWO) TIMES DAILY NEEDED. diazePAM 2020-03- No 10mg Take [address] [facility] (VALIUM) 10 03-18-07 tablet (10 L [facility] MG tablet 00:00: 00:00 mg total) Me dical 00 :00 by mouth Center every 8 (eight) hours as needed for Anxiety. Max Daily Amount: 30 mg diazePAM 2020-03- No 10mg Take [address] [facility] (VALIUM) 10 03-18-07 tablet (10 L [facility] MG tablet 00:00: [...] 2020-03- No TAKE ONE [facility] (CeleBREX) 0-24 (1) [facility] 200 MG 00:00: 00:00 CAPSULE(S) Medi chanell capsule 00 :00 BY MOUTH Center DAILY FOR 90 DAYS. celecoxib 2020-03- No TAKE ONE [facility] (CeleBREX) 0-24 (1) [facility] 200 MG 00:00: 00:00 CAPSULE(S) Medi chanell capsule 00 :00 BY MOUTH Center DAILY FOR 90 DAYS. diazePAM 2020-03 No 10mg Take [address] [facility] (VALIUM) 10 0- 11-11 tablet (10 L ukes MG tablet 00:00: 00:00 mg total) Me dical 00 :00 by mouth Center every 8 (eight) hours as needed for Anxiety. Max Daily Amount: 30 mg diazePAM 2020-03 No 10mg Take [address] [facility] (VALIUM) 10 0- 11-11 tablet (10 L ukes MG tablet [...] No Persistent TAKE ONE [facility] (TOPAMAX) 010 -06 headaches (1) [facility] 100 MG 00:00: 00:00 TABLET(S) Medic al tablet 00 :00 BY MOUTH Center EVERY MORNING AND 2 TABLETS IN THE EVENING. zolpidem 2020-03- No TAKE ONE [facility] (AMBIEN) 10 003-13 (1) TABLET L [facility]kes mg tablet 00:00: 00:00 (10 MG Medic al 00 :00 TOTAL) BY Center MOUTH EVERY NIGHT NEEDED FOR INSOMNIA. topiramate 2020-03- No Persistent TAKE ONE [facility] (TOPAMAX) 03-13 headaches (1) [facility] 100 MG 00:00: 00:00 TABLET(S) Medic al tablet 00 :00 BY MOUTH Center EVERY MORNING AND 2 TABLETS IN THE EVENING. lidocaine 2020-03- No PLACE [facility] (LIDODERM) 004-03 (1) PATCH Anayeli es 5 % patch 00:00: 00:00 ONTO THE Med ical 00 :00 SKIN ONCE Center DAILY, REMOVE & DISCARD PATCH WITHIN 12 HOURS OR DIRECTED BY MD. lidocaine 2020-03- No PLACE ONE [facility] (LIDODERM) 04-03 (1) PATCH Anayeli es 5 % patch [...] Persistent TAKE ONE [facility] (TOPAMAX) 11-11 headaches (1) [facility] 100 MG 00:00: 00:00 TABLET(S) Medic al tablet 00 :00 BY MOUTH Center EVERY MORNING AND 2 TABLETS IN THE EVENING. topiramate 2020- No Persistent TAKE ONE [facility] (TOPAMAX) 11-11 headaches (1) [facility] 100 MG 00:00: [...] WITHIN 12 HOURS OR DIRECTED BY MD. lidocaine 2020- No PLACE ONE [facility] (LIDODERM) 11-01 (1) PATCH Anayeli es 5 % patch 00:00: 00:00 ONTO THE Med ical 00 :00 SKIN ONCE Center DAILY, REMOVE & DISCARD PATCH WITHIN 12 HOURS OR DIRECTED BY MD. SUMAtriptan 2020- No Persistent TAKE ONE [facility] [...] Me dical l-monohydra 00 :00 total) by [facility] te, mouth 2 (MACROBID) (two) 100 MG times capsule daily. nitrofurant 2020- No Neck pain 100mg Q.5D Take [address] [facility] oin, 10-14 capsule [facility] macrocrysta 00:00: 00:00 (100 mg Me dical l-monohydra 00 :00 total) by Ken patel, mouth 2 (MACROBID) (two) 100 MG times capsule daily. diazePAM 2020- No 10mg Take [address] [facility] (VALIUM) 10 10-14- tablet (10 L ukes MG tablet 00:00: 00:00 mg total) Me dical 00 :00 by mouth Center every 8 (eight) hours as needed for Anxiety. Max Daily Amount: 30 mg diazePAM 2020- No 10mg Take [address] [facility] (VALIUM) 10 10-14- tablet (10 L ukes MG tablet 00:00: [...] MOUTH EVERY NIGHT NEEDED FOR INSOMNIA. diclofenac 0 Yes 4g Q.25D Apply [address] 1 % Gel 6-04 topically [facility] 00:00: 4 (four) Medical 00 times Center daily. diclofenac 2020-0 Yes 4g Q.25D Apply [address] 1 % Gel 6-04 topically [facility] 00:00: 4 (four) Medical 00 times Center daily. diclofenac 0 Yes 4g Q.25D Apply [address] 1 % Gel 6-04 topically [facility] 00:00: 4 (four) Medical 00 times Center daily. diclofenac 2020-0 Yes 4g Q.25D Apply [address] 1 % Gel 6-04 topically [facility] 00:00: 4 (four) Medical 00 times Center daily. diclofenac 2020-0 Yes 4g Q.25D Apply [address] 1 % Gel 6-04 topically [facility] 00:00: 4 (four) Medical 00 times Center daily. diclofenac 2020-0 Yes 4g Q.25D Apply [address] 1 % Gel 6-04 topically [facility] 00:00: 4 (four) Medical 00 times Center daily. diclofenac 2020-0 Yes 4g Q.25D Apply 4 g C [...] No TAKE ONE [facility] (EFFEXOR-XR 4-13 05-08 (1) [facility] ) 75 MG 24 00:00: 00:00 CAPSULE(S) Medical hr capsule 00 :00 BY MOUTH Cente r DAILY. venlafaxine 2021- No TAKE ONE [facility] (EFFEXOR-XR 4-13 05-08 (1) [facility] ) 75 MG 24 00:00: 00:00 CAPSULE(S) Medical hr capsule 00 :00 BY MOUTH Cente r DAILY. celecoxib 2020- No TAKE ONE [facility] (CeleBREX) 03-22 (1) [facility] 200 MG 00:00: 00:00 CAPSULE(S) Medi chanell capsule 00 :00 BY MOUTH Center DAILY FOR 90 DAYS. celecoxib 2020- No TAKE ONE [facility] (CeleBREX) 03-22 (1) [facility] 200 MG 00:00: 00:00 CAPSULE(S) Medi chanell capsule 00 :00 BY MOUTH Center DAILY FOR 90 DAYS. sucralfate 2021- No TAKE ONE [facility] (CARAFATE) 10-22 (1) [facility] 1 gram 00:00: 00:00 TABLET(S) Medic al tablet 00 :00 BY MOUTH Center FOUR TIMES A DAY. sucralfate 2021- No TAKE ONE [facility] (CARAFATE) 10-22 (1) [facility] 1 gram 00:00: 00:00 TABLET(S) Medic al tablet 00 :00 BY MOUTH Center FOUR TIMES A DAY. sumatriptan 2020- No INJECT 0.[address] [facility] (IMITREX) 6 8- 10-22 ML(S) [facility] mg/0.5 mL 00:00: 00:00 SUBCUTANEO M edical Soln 00 :00 USLY DAILY Center injection NEEDED FOR 30 DAYS. sumatriptan 2020- No INJECT 0.[address] [facility] (IMITREX) 6 8- 10-22 ML(S) [facility] mg/0.5 mL 00:00: 00:00 SUBCUTANEO M edical Soln 00 :00 USLY DAILY Center injection NEEDED FOR 30 DAYS. miscellaneo Yes [id number] Neck brace [facility] [facility] misc 00:00: Hospit a 00 l miscellaneo Yes [id number] Neck brace [facility] 10-[address] supply misc 00:00: Hospit a 00 l miscellaneo 2020-0 Yes [id number] Neck brace [facility] 10-[address] supply mis 00:00: Hospit a 00 l rOPINIRole 2020-0 Yes 2mg [id number] Take 2 mg [facility] (REQUIP) 2 7-08 [id number] by mouth 3 [facility] MG tablet 11:50: [...] needed. l capsule baclofen 2020-0 Yes 20mg Q.[id number] Take 20 mg [facility] (LIORESAL) 7-08 [id number] by mouth [facility] 20 MG 11:50: [...] needed for anxiety. rOPINIRole 2020-0 Yes 2mg Q.[id number] Take 2 mg [facility] (REQUIP) 2 7-08 [id number] [address] mouth 3 [facility] MG tablet 11:50: [...] needed. l capsule baclofen 2020-0 Yes 20mg Q.[id number] Take 20 mg [facility] (LIORESAL) 7-08 [id number] by mouth [facility] 20 MG 11:50: [...] needed for anxiety. rOPINIRole 2020-0 Yes 2mg Q.[id number] Take 2 mg [facility] (REQUIP) 2 7-08 [id number] by mouth 3 [facility] MG tablet 11:50: [...] needed. l capsule baclofen 2020-0 Yes 20mg Q.[id number] Take 20 mg [facility] (LIORESAL) 7-08 [id number] by mouth [address] [facility] 20 MG 11:50: [...] hours as needed for anxiety. AJOVY 225 2019-0 Yes [facility] mg/1.5 mL 4-11 CONTENTS [facility] 00:[facility]: OF ONE (1) Medical 00 PRE-FILLED Center SYRINGE SUBCUTANEO USLY EVERY 28 DAYS. AJOVY 225 2019-0 Yes [facility]JECT [facility] mg/1.5 mL 4-11 CONTENTS [facility] 00:00: OF ONE (1) Medical 00 PRE-FILLED Center SYRINGE SUBCUTANEO USLY EVERY 28 DAYS. AJOVY 225 2019-0 Yes [facility]JECT [facility] mg/1.5 mL 4-11 CONTENTS [facility] 00:00: OF ONE (1) Medical 00 PRE-FILLED Center SYRINGE SUBCUTANEO USLY EVERY 28 DAYS. AJOVY 225 2020-0 Yes [facility]JECT [facility] mg/1.5 mL 4-11 CONTENTS [facility] 00:00: OF ONE (1) Medical 00 PRE-FILLED Center SYRINGE SUBCUTANEO USLY EVERY 28 DAYS. AJOVY 225 2020-0 Yes [facility]JECT [facility] mg/1.5 mL 4-11 CONTENTS [facility] 00:00: OF ONE (1) Medical 00 PRE-FILLED Center SYRINGE SUBCUTANEO USLY EVERY 28 DAYS. AJOVY 225 2019-0 Yes [facility]JECT [facility] mg/1.5 mL 4-11 CONTENTS [facility] 00:00: OF ONE (1) Medical 00 PRE-FILLED Center SYRINGE SUBCUTANEO USLY EVERY 28 DAYS. AJOVY 225 Yes [facility]JECT [facility] mg/1.5 mL 4-11 CONTENTS [facility] 00:00: OF ONE (1) Medical 00 PRE-FILLED Center SYRINGE SUBCUTANEO USLY EVERY 28 DAYS. DULoxetine 2021- No TAKE [address] [facility] (CYMBALTA) 4-04 06-23 CAPSULE [facility] 60 MG 00:00: 00:00 (60 MG Medical capsule 00 :00 TOTAL) BY Center MOUTH DAILY. DULoxetine 2021- No TAKE [address] [facility] (CYMBALTA) 4-04 06-23 CAPSULE [facility] 60 MG 00:00: 00:00 (60 MG Medical capsule 00 :00 TOTAL) BY Center MOUTH DAILY. DULoxetine 2021- No TAKE [address] [facility] (CYMBALTA) 4- 06-23 CAPSULE [facility] 60 MG 00:00: 00:00 (60 MG Medical capsule 00 :00 TOTAL) BY Center MOUTH DAILY. DULoxetine 2021- No TAKE [address] [facility] (CYMBALTA) 4-04 06-23 CAPSULE [facility] 60 MG 00:00: 00:00 (60 MG Medical capsule 00 :00 TOTAL) BY Center MOUTH DAILY. DULoxetine 2021- No TAKE [address] [facility] (CYMBALTA) 4- 06-23 CAPSULE [facility] 60 MG 00:00: 00:00 (60 MG Medical capsule 00 :00 TOTAL) BY Center MOUTH DAILY. DULoxetine 2021- No TAKE [address] [facility] (CYMBALTA) 4-04 06-23 CAPSULE [facility] 60 MG 00:00: 00:00 (60 MG Medical capsule 00 :00 TOTAL) BY Center MOUTH DAILY. eszopiclone 2021- No TAKE ONE [facility] 3 mg tablet 06-01- TABLET BY Shannen kes 00:00: 00:00 MOUTH AT Medical 00 :00 BEDTIME Center NEEDED. MAX 1 TABLET PER DAY. eszopiclone 2021- No TAKE ONE [facility] 3 mg tablet 06-01-23 TABLET BY Shannen kes 00:00: 00:00 MOUTH AT Medical 00 :00 [...] MAX 1 TABLET PER DAY. fremanezuma Yes [id number] 225mg Q28D Inject 225 [facility] b[facility] 3-[address] (AJOVY) 225 00:00: the skin Ho spita mg/1.5 mL 00 every 28 l syringe days. 225mg SC qMonthly fremanezuma Yes [id number] 225mg Q28D Inject 225 [facility] b-vfrm 3-[address] (AJOVY) 225 00:00: the skin Ho spita mg/1.5 mL 00 every 28 l syringe days. 225mg SC qMonthly fremanezuma Yes [id number] 225mg Q28D Inject 225 [facility] b-vfr[facility] 3-[address] (AJOVY) 225 00:00: the skin Ho spita mg/1.5 mL 00 every 28 l syringe days. 225mg SC qMonthly furosemide 2021- No 20mg QD Take 1 [...] days . Medica l PTWK 00 :00 Gaastra buprenorphi 2021- No 1{patch [address] [facility] ne 15 07-06 } every 7 [facility] mcg/hour 00:00: 00:00 days . Medica l PTWK 00 :00 Gaastra buprenorphi 2021- No 1{patch [address] [facility] ne 15 07-06 } every 7 [facility] mcg/hour 00:00: 00:00 days . Medica l PTWK 00 :00 Gaastra buprenorphi 2021- No 1{patch [address] [facility] ne 15 07-06 } every 7 [facility] mcg/hour 00:00: 00:00 days . Medica l PTWK 00 :00 Gaastra buprenorphi 2021- No 1{patch [address] [facility] ne 15 07-06 } every 7 [facility] mcg/hour 00:00: 00:00 days . Medica l PTWK 00 :00 Gaastra buprenorphi 2021- No 1{patch [address] [facility] ne 15 07-06 } every 7 [facility] mcg/hour 00:00: 00:00 days . Medica l PTWK 00 :00 Gaastra Aspirin 2016-03 No 1 Packets, Raúl holland 1000 MG / 1-14 Oral, As l Caffeine 65 20:47: Indicated H ermann MG Oral 00 Powder [BC Arthritis] Aspirin 2016-03 No 1 Packets, Raúl holland 1000 MG / 1-14 Oral, As l Caffeine 65 20:47: Indicated H ermann MG Oral 00 Powder [BC Arthritis] Aspirin 2016-03 No 1 Packets, Raúl holland 1000 MG / 1-14 Oral, As l Caffeine 65 20:47: Indicated H ermann MG Oral 00 Powder [BC Arthritis] Aspirin 2016-03 No 1 Packets, Raúl holland 1000 MG / -14 Oral, As l Caffeine 65 20:47: Indicated H ermann MG Oral 00 Powder [BC Arthritis] Aspirin 2016-03 No 1 Packets, Raúl holland 1000 MG / -14 Oral, As l Caffeine 65 20:47: Indicated H ermann MG Oral 00 Powder [BC Arthritis] Aspirin 2016-03 No 1 Packets, Raúl holland 1000 MG / -14 Oral, As l Caffeine 65 20:47: Indicated H ermann MG Oral 00 Powder [BC Arthritis] Aspirin 2016-03 No 1 Packets, Raúl holland 1000 MG / -14 Oral, As l Caffeine 65 20:47: Indicated H ermann MG Oral 00 Powder [BC Arthritis] Aspirin 2016-03 No 1 Packets, Raúl holland 1000 MG / -14 Oral, As l Caffeine 65 20:47: Indicated H ermann MG Oral 00 Powder [BC Arthritis] Ibuprofen 2016-03 No 800 mg = 1 Me moria 800 MG Oral 1-14 tabs, l Tablet 20:46: Oral, As Indicated Ibuprofen 2016-03 No 800 mg = 1 Me moria 800 MG Oral 1-14 tabs, l Tablet 20:46: Oral, As Indicated Ibuprofen 2016-03 No 800 mg = 1 Me moria 800 MG Oral 1-14 tabs, l Tablet 20:46: Oral, As Indicated Ibuprofen 2016-03 No 800 mg = 1 Me moria 800 MG Oral 1-14 tabs, l Tablet 20:46: Oral, As Jeffery 00 Indicated Ibuprofen 2016-03 No 800 mg = 1 Me moria 800 MG Oral 1-14 tabs, l Tablet 20:46: Oral, As Indicated Ibuprofen 2016-03 No 800 mg = 1 Me moria 800 MG Oral 1-14 tabs, l Tablet 20:46: Oral, As Jeffery 00 Indicated Ibuprofen 2016-03 No 800 mg = 1 Me moria 800 MG Oral 1-14 tabs, l Tablet 20:46: Oral, As Indicated Ibuprofen 2016-03 No 800 mg = 1 Me moria 800 MG Oral 1-14 tabs, l Tablet 20:46: Oral, As Indicated topiramate 2016-03 Yes Oral, BID, M emoria 100 MG Oral 1-14 1 tab in l Tablet 20:45: AM and 2 Jeffery [Topamax] 00 tabs at topiramate 2017- Yes Oral, BID, M emoria 100 MG Oral 1-14 1 tab in l Tablet 20:45: AM and 2 Hubbard [Topamax] 00 tabs at topiramate 2016-03 Yes Oral, BID, M emoria 100 MG Oral 1-14 1 tab in l Tablet 20:45: AM and 2 Jeffery [Topamax] 00 tabs at topiramate 2017 Yes Oral, BID, M emoria 100 MG Oral 1-14 1 tab in l Tablet 20:45: AM and 2 Hubbard [Topamax] 00 tabs at topiramate 2017- Yes Oral, BID, M emoria 100 MG Oral 1-14 1 tab in l Tablet 20:45: AM and 2 Jeffery [Topamax] 00 tabs at topiramate 2017 Yes Oral, BID, M emoria 100 MG Oral 1-14 1 tab in l Tablet 20:45: AM and 2 Hubbard [Topamax] 00 tabs at topiramate 2016-03 Yes Oral, BID, M emoria 100 MG Oral 1-14 1 tab in l Tablet 20:45: AM and 2 Hubbard [Topamax] 00 tabs at topiramate 2017- Yes Oral, BID, M emoria 100 MG Oral 1-14 1 tab in l Tablet 20:45: AM and 2 Jeffery [Topamax] 00 tabs at Sumatriptan 2016-03 Yes 100 mg = 1 Memoria 100 MG Oral 1-14 tabs, l Tablet 20:11: Oral, As Hubbard 00 Indicated Sumatriptan 2016-03 Yes 100 mg = 1 Memoria 100 MG Oral 1-14 tabs, l Tablet 20:11: Oral, As Hubbard 00 Indicated Sumatriptan 2016- Yes 100 mg = 1 Memoria 100 MG Oral 1-14 tabs, l Tablet 20:11: Oral, As Jeffery 00 Indicated Sumatriptan 2016- Yes 100 mg = 1 Memoria 100 MG Oral 1-14 tabs, l Tablet 20:11: Oral, As Jeffery 00 Indicated Sumatriptan 2016-03 Yes 100 mg = 1 Memoria 100 MG Oral 1-14 tabs, l Tablet 20:11: Oral, As Indicated Sumatriptan 2016-03 Yes 100 mg = 1 Memoria 100 MG Oral -14 tabs, l Tablet 20:11: Oral, As Indicated Sumatriptan 2016-03 Yes 100 mg = 1 Memoria 100 MG Oral -14 tabs, l Tablet 20:11: Oral, As Indicated Sumatriptan 2016-03 Yes 100 mg = 1 Memoria 100 MG Oral -14 tabs, l Tablet 20:11: Oral, As Indicated NITROFURANT 2016-03 Yes 100 mg = 1 Memoria OIN, 1-14 caps, l MACROCRYSTA 20:10: Oral, Christy nn LS 100 MG 00 Daily Oral Capsule NITROFURANT 2016-03 Yes 100 mg = 1 Memoria OIN, -14 caps, l MACROCRYSTA 20:10: Oral, Christy nn LS 100 MG 00 Daily Oral Capsule NITROFURANT 2016-03 Yes 100 mg = 1 Memoria OIN, -14 caps, l MACROCRYSTA 20:10: Oral, Christy nn LS 100 MG 00 Daily Oral Capsule NITROFURANT 2016-03 Yes 100 mg = 1 Memoria OIN, 1-14 caps, l MACROCRYSTA 20:10: Oral, Christy nn LS 100 MG 00 Daily Oral Capsule NITROFURANT 2016-03 Yes 100 mg = 1 Memoria OIN, 1-14 caps, l MACROCRYSTA 20:10: Oral, Christy nn LS 100 MG 00 Daily Oral Capsule NITROFURANT 2016-03 Yes 100 mg = 1 Memoria OIN, 1-14 caps, l MACROCRYSTA 20:10: Oral, Christy nn LS 100 MG 00 Daily Oral Capsule NITROFURANT 2016-03 Yes 100 mg = 1 Memoria OIN, 1-14 caps, l MACROCRYSTA 20:10: Oral, Christy nn LS 100 MG 00 Daily Oral Capsule NITROFURANT 2016-03 Yes 100 mg = 1 Memoria OIN, 1-14 caps, l MACROCRYSTA 20:10: Oral, Christy nn LS 100 MG 00 Daily Oral Capsule Esomeprazol 2016-03 No 20 mg = 1 M emoria e 20 MG -14 caps, l Enteric 20:09: Oral, BID Christy nn Coated 00 Capsule [Nexium] tiZANidine 2016-03 No 4 mg = 1 Mem oria 4 mg oral 1-14 caps, l capsule 20:09: Oral, TID Christy nn 00 Esomeprazol 2016-03 No 20 mg = 1 M emoria e 20 MG 1-14 caps, l Enteric 20:09: Oral, BID Christy nn Coated 00 Capsule [Nexium] tiZANidine 2016-03 No 4 mg = 1 Mem oria 4 mg oral 1-14 caps, l capsule 20:09: Oral, TID Christy nn 00 Esomeprazol 2016-03 No 20 mg = 1 M emoria e 20 MG 1-14 caps, l Enteric 20:09: Oral, BID Christy nn Coated 00 Capsule [Nexium] tiZANidine 2016-03 No 4 mg = 1 Mem oria 4 mg oral 1-14 caps, l capsule 20:09: Oral, TID Christy nn 00 Esomeprazol 2016-03 No 20 mg = 1 M emoria e 20 MG 1-14 caps, l Enteric 20:09: Oral, BID Christy nn Coated 00 Capsule [Nexium] tiZANidine 2016-03 No 4 mg = 1 Mem oria 4 mg oral 1-14 caps, l capsule 20:09: Oral, TID Christy nn 00 Esomeprazol 2016-03 No 20 mg = 1 M emoria e 20 MG 1-14 caps, l Enteric 20:09: Oral, BID Christy nn Coated 00 Capsule [Nexium] tiZANidine 2016-03 No 4 mg = 1 Mem oria 4 mg oral 1-14 caps, l capsule 20:09: Oral, TID Christy nn 00 Esomeprazol 2016-03 No 20 mg = 1 M emoria e 20 MG 1-14 caps, l Enteric 20:09: Oral, BID Christy nn Coated 00 Capsule [Nexium] tiZANidine 2016-03 No 4 mg = 1 Mem oria 4 mg oral 1-14 caps, l capsule 20:09: Oral, TID Christy nn 00 Esomeprazol 2016-03 No 20 mg = 1 M emoria e 20 MG 1-14 caps, l Enteric 20:09: Oral, BID Christy nn Coated 00 Capsule [Nexium] tiZANidine 2016-03 No 4 mg = 1 Mem oria 4 mg oral 1-14 caps, l capsule 20:09: Oral, TID Christy nn 00 Esomeprazol 2016-03 No 20 mg = 1 M emoria e 20 MG 1-14 caps, l Enteric 20:09: Oral, BID Christy nn Coated 00 Capsule [Nexium] tiZANidine 2016-03 No 4 mg = 1 Mem oria 4 mg oral -14 caps, l capsule 20:09: Oral, TID Christy nn 00 DULoxetine 2016-03 No 30 mg = 1 Me moria 30 mg oral -14 caps, l delayed 20:08: Oral, Jeffery release 00 Daily capsule Ondansetron 2016-03 Yes 4 mg, Memor ia 1-14 Oral, As l 20:08: Indicated diazePAM 2016-03 Yes 1 tab, Memor ia mg oral 14 Oral, TID l tablet 20:08: DULoxetine 2016-03 No 30 mg = 1 Me moria 30 mg oral -14 caps, l delayed 20:08: Oral, Jeffery release 00 Daily capsule Ondansetron 2016-03 Yes 4 mg, Memor ia -14 Oral, As l 20:08: Indicated diazePAM 2016-03 Yes 1 tab, Memor ia mg oral 14 Oral, TID l tablet 20:08: DULoxetine 2016-03 No 30 mg = 1 Me moria 30 mg oral -14 caps, l delayed 20:08: Oral, Hubbard release 00 Daily capsule Ondansetron 2016-03 Yes 4 mg, Memor ia -14 Oral, As l 20:08: Indicated diazePAM 2016-03 Yes 1 tab, Memor ia mg oral -14 Oral, TID l tablet 20:08: DULoxetine 2016-03 No 30 mg = 1 Me moria 30 mg oral -14 caps, l delayed 20:08: Oral, Jeffery release 00 Daily capsule Ondansetron 2016-03 Yes 4 mg, Memor ia 1-14 Oral, As l 20:08: Indicated diazePAM 2016-03 Yes 1 tab, Memor ia mg oral -14 Oral, TID l tablet 20:08: DULoxetine 2016-03 No 30 mg = 1 Me moria 30 mg oral 1-14 caps, l delayed 20:08: Oral, Hubbard release 00 Daily capsule Ondansetron 2016- Yes 4 mg, Memor ia 1-14 Oral, As l 20:08: Indicated diazePAM 5 2016-03 Yes 1 tab, Memor ia mg oral 1-14 Oral, TID l tablet 20:08: DULoxetine 2016-03 No 30 mg = 1 Me moria 30 mg oral 1-14 caps, l delayed 20:08: Oral, Hubbard release 00 Daily capsule Ondansetron 2016- Yes 4 mg, Memor ia 1-14 Oral, As l 20:08: Indicated diazePAM 5 2016-03 Yes 1 tab, Memor ia mg oral 1-14 Oral, TID l tablet 20:08: DULoxetine 2016-03 No 30 mg = 1 Me moria 30 mg oral 1-14 caps, l delayed 20:08: Oral, Jeffery release 00 Daily capsule Ondansetron 2016-03 Yes 4 mg, Memor ia 1-14 Oral, As l 20:08: Indicated diazePAM 2016-03 Yes 1 tab, Memor ia mg oral 1-14 Oral, TID l tablet 20:08: DULoxetine 2016-03 No 30 mg = 1 Me moria 30 mg oral 1-14 caps, l delayed 20:08: Oral, Jeffery release 00 Daily capsule Ondansetron 2016-03 Yes 4 mg, Memor ia 1-14 Oral, As l 20:08: Indicated diazePAM 5 2016-03 Yes 1 tab, Memor ia mg oral 1-14 Oral, TID l tablet 20:08: Cephalexin 2017-0 Yes 500 mg = 1 M emoria 500 MG Oral 7-30 cap, PO, l Capsule 22:16: QID, X 7 Delroy n [Keflex] 00 day, # 28 cap, 0 Refill(s) Cephalexin 2017-0 Yes 500 mg = 1 M emoria 500 MG Oral 7-30 cap, PO, l Capsule 22:16: QID, X 7 Delroy n [Keflex] 00 day, # 28 cap, 0 Refill(s) Cephalexin 2017-0 Yes 500 mg = 1 M emoria 500 MG Oral 7-30 cap, PO, l Capsule 22:16: QID, X 7 Delroy n [Keflex] 00 day, # 28 cap, 0 Refill(s) Cephalexin 2017 Yes 500 mg = 1 M emoria 500 MG Oral 7-30 cap, PO, l Capsule 22:16: QID, X 7 Delroy n [Keflex] 00 day, # 28 cap, 0 Refill(s) Cephalexin 2017 Yes 500 mg = 1 M emoria 500 MG Oral 7-30 cap, PO, l Capsule 22:16: QID, X 7 Delroy n [Keflex] 00 day, # 28 cap, 0 Refill(s) Cephalexin Yes 500 mg = 1 M emoria 500 MG Oral 7-30 cap, PO, l Capsule 22:16: QID, X 7 Delroy n [Keflex] 00 day, # 28 cap, 0 Refill(s) Cephalexin Yes 500 mg = 1 M emoria 500 MG Oral 7-30 cap, PO, l Capsule 22:16: QID, X 7 Delroy n [Keflex] 00 day, # 28 cap, 0 Refill(s) Cephalexin Yes 500 mg = 1 M [...] 0 Tablet Refill(s) [Tylenol with Codeine #3] Acetaminoph 2017 Yes 1 - 2 tab, Memoria en 300 MG / 7-30 PO, Q6H, l Codeine 22:00: PRN Pain, Christy nn Phosphate 00 X 3 day, # 30 MG Oral 15 tab, 0 Tablet Refill(s) [Tylenol with Codeine #3] Acetaminoph 2017 Yes 1 - 2 tab, Memoria en 300 MG / 7-30 PO, Q6H, l Codeine 22:00: PRN Pain, Christy nn Phosphate 00 X 3 day, # 30 MG Oral 15 tab, 0 Tablet Refill(s) [Tylenol with Codeine #3] Acetaminoph Yes 1 - 2 tab, Memoria en 300 MG / 7-30 PO, Q6H, l Codeine 22:00: PRN Pain, Christy nn Phosphate 00 X 3 day, # 30 MG Oral 15 tab, 0 Tablet Refill(s) [Tylenol with Codeine #3] Acetaminoph Yes 1 - 2 tab, Memoria en 300 MG / 7-30 PO, Q6H, l Codeine 22:00: PRN Pain, Christy nn Phosphate 00 X 3 day, # 30 MG Oral 15 tab, 0 Tablet Refill(s) [Tylenol with Codeine #3] Acetaminoph Yes 1 - 2 tab, Memoria en 300 MG / 7-30 PO, Q6H, l Codeine 22:00: PRN Pain, Christy nn Phosphate 00 X 3 day, # 30 MG Oral 15 tab, 0 Tablet Refill(s) [Tylenol with Codeine #3] Acetaminoph Yes 1 - 2 tab, Memoria en 300 MG / 7-30 PO, Q6H, l Codeine 22:00: PRN Pain, Christy nn Phosphate 00 X 3 day, # 30 MG Oral 15 tab, 0 Tablet Refill(s) [Tylenol with Codeine #3] Acetaminoph Yes 1 - 2 tab, Memoria en 300 MG / 7-30 PO, Q6H, l Codeine 22:00: PRN Pain, Christy nn Phosphate 00 X 3 day, # 30 MG Oral 15 tab, 0 Tablet Refill(s) [Tylenol with Codeine #3] Ondansetron No 4 mg, Memor ia 10-04 Route: l 19:20: IVP, ONCE, Dosing Weight 65.909, kg, Priority: STAT, Start date: 10/04/16 14:20:00 CDT, Stop date: 10/04/16 14:20:00 CDT Morphine 2016-0 No 2 mg, Memoria 10-04 Route: l 19:20: IVP, ONCE, Dosing Weight [...] times, Stop date: 10/04/16 14:20:00 CDT Saline 2017-0 No Notes: Memoria Flush 0.9% 7-30 Same as: l 19:20: BD Jeffery 00 Posiflush Sterile Ondansetron 2017-0 No 4 mg, Memor ia 7-30 Route: l 19:20: IVP, ONCE, Jeffery 00 Dosing Weight 65.909, kg, Priority: STAT, Start date: 10/04/16 14:20:00 CDT, Stop date: 10/04/16 14:20:00 CDT Morphine 2017-0 No 2 mg, Memoria 7-30 Route: l 19:20: IVP, ONCE, Dosing Weight 65.909, kg, Priority: STAT, Start date: 10/04/16 14:20:00 CDT, Stop date: 10/04/16 14:20:00 CDT Sodium 2017-0 No 1,000 mL, Memori a Chloride 7-30 Infuse l 0.9% 19:20: Over: 1 Hubbard (Bolus) IV 00 hr, Route: IV, ONCE, Priority: STAT, Dosing Weight 65.909 kg, Start date: 10/04/16 14:20:00 CDT, Duration: 1 doses or times, Stop date: 10/04/16 14:20:00 CDT Saline 2017-0 No Notes: Memoria Flush 0.9% 7-30 Same as: l 19:20: BD Jeffery 00 Posiflush Sterile Ondansetron 2017-0 No 4 mg, Memor ia 7-30 Route: l 19:20: IVP, ONCE, Hubbard 00 Dosing Weight 65.909, kg, Priority: STAT, Start date: 10/04/16 14:20:00 CDT, Stop date: 10/04/16 14:20:00 CDT Morphine 2017-0 No 2 mg, Memoria 7-30 Route: l [...] times, Stop date: 10/04/16 14:20:00 CDT Saline 2017-0 No Notes: Memoria Flush 0.9% 7-30 Same as: l 19:20: BD Jeffery 00 Posiflush Sterile Ondansetron 2017-0 No 4 mg, Memor ia 7-30 Route: l 19:20: IVP, ONCE, Dosing Weight 65.909, kg, Priority: STAT, Start date: 10/04/16 14:20:00 CDT, Stop date: 10/04/16 14:20:00 CDT Morphine 2017-0 No 2 mg, Memoria 7-30 Route: l [...] times, Stop date: 10/04/16 14:20:00 CDT Saline 2017-0 No Notes: Memoria Flush 0.9% 7-30 Same as: l 19:20: BD Jeffery Posiflush Sterile Ondansetron 2017-0 No 4 mg, Memor ia 7-30 Route: l 19:20: IVP, ONCE, Dosing Weight 65.909, kg, Priority: STAT, Start date: 10/04/16 14:20:00 CDT, Stop date: 10/04/16 14:20:00 CDT Morphine 2017-0 No 2 mg, Memoria 7-30 Route: l [...] times, Stop date: 10/04/16 14:20:00 CDT Saline 2017-0 No Notes: Memoria Flush 0.9% 7-30 Same as: l 19:20: BD Posiflush Sterile Ondansetron 2017-0 No 4 mg, Memor ia 7-30 Route: l 19:20: IVP, ONCE, Dosing Weight 65.909, kg, Priority: STAT, Start date: 10/04/16 14:20:00 CDT, Stop date: 10/04/16 14:20:00 CDT Morphine 2016-0 No 2 mg, Memoria 7-30 Route: l 19:20: IVP, ONCE, Dosing Weight 65.909, kg, Priority: STAT, Start date: 10/04/16 14:20:00 CDT, Stop date: 10/04/16 14:20:00 CDT Sodium 2017-0 No 1,000 mL, Memori a Chloride 7-30 Infuse l 0.9% 19:20: Over: 1 Hubbard (Bolus) IV 00 hr, Route: IV, ONCE, Priority: STAT, Dosing Weight 65.909 kg, Start date: 10/04/16 14:20:00 CDT, Duration: 1 doses or times, Stop date: 10/04/16 14:20:00 CDT Saline 2017-0 No Notes: Memoria Flush 0.9% 7-30 Same as: l 19:20: BD Hubbard Posiflush Sterile Ondansetron 2017-0 No 4 mg, Memor ia 7-30 Route: l 19:20: IVP, ONCE, Dosing Weight 65.909, kg, Priority: STAT, Start date: 10/04/16 14:20:00 CDT, Stop date: 10/04/16 14:20:00 CDT Morphine 2017-0 No 2 mg, Memoria 7-30 Route: l [...] times, Stop date: 10/04/16 14:20:00 CDT Saline 2017-0 No Notes: Memoria Flush 0.9% 7-30 Same as: l 19:20: BD Posiflush Sterile Ondansetron 2017-0 No 4 mg, Memor ia 7-30 Route: l 19:20: IVP, ONCE, Dosing Weight 65.909, kg, Priority: STAT, Start date: 10/04/16 14:20:00 CDT, Stop date: 10/04/16 14:20:00 CDT Morphine 2017-0 No 2 mg, Memoria 7-30 Route: l [...] 0.9% 10-04 Same as: l 19:20: BD Jeffery 00 Posiflush Sterile SUMAtriptan Yes Take 1 [...] tab, Me moria en 325 MG / 7-03 PO, Q4-6H, l Hydrocodone 12:04: PRN Pain, H ermann Bitartrate 00 X 5 day, # 5 MG Oral 12 tab, 0 Tablet Refill(s) [[place] 5/325] { Yes See Memoria (Methylpred 7-03 Instructio l nisolone 4 12:04: ns, PO, Herm justo MG Oral 00 Take by Tablet mouth as [Medrol]) } directed Pack on label., [Medrol X 6 day, # Dosepak] 1 Pack, 0 Refill(s) Acetaminoph Yes 1-2 tab, Me moria en 325 MG / 7-03 PO, Q4-6H, l Hydrocodone 12:04: PRN Pain, H ermann Bitartrate 00 X 5 day, # 5 MG Oral 12 tab, 0 Tablet Refill(s) [[place] 5/325] { Yes See Memoria (Methylpred 7-03 Instructio l nisolone 4 12:04: ns, PO, Herm justo MG Oral 00 Take by Tablet mouth as [Medrol]) } directed Pack on label., [Medrol X 6 day, # Dosepak] 1 Pack, 0 Refill(s) Acetaminoph Yes 1-2 tab, Me moria en 325 MG / 7-03 PO, Q4-6H, l Hydrocodone 12:04: PRN Pain, H ermann Bitartrate 00 X 5 day, # 5 MG Oral 12 tab, 0 Tablet Refill(s) [[place] 5/325] { Yes See Memoria (Methylpred 7-03 Instructio l nisolone 4 12:04: ns, PO, Herm justo MG Oral 00 Take by Tablet mouth as [Medrol]) } directed Pack on label., [Medrol X 6 day, # Dosepak] 1 Pack, 0 Refill(s) Acetaminoph Yes 1-2 tab, Me moria en 325 MG / 7-03 PO, Q4-6H, l Hydrocodone 12:04: PRN Pain, H ermann Bitartrate 00 X 5 day, # 5 MG Oral 12 tab, 0 Tablet Refill(s) [[place] 5/325] { Yes See Memoria (Methylpred 7-03 Instructio l nisolone 4 12:04: ns, PO, Herm justo MG Oral 00 Take by Tablet mouth as [Medrol]) } directed Pack on label., [Medrol X 6 day, # Dosepak] 1 Pack, 0 Refill(s) Acetaminoph Yes 1-2 tab, Me moria en 325 MG / 7-03 PO, Q4-6H, l Hydrocodone 12:04: PRN Pain, H ermann Bitartrate 00 X 5 day, # 5 MG Oral 12 tab, 0 Tablet Refill(s) [[place] 5/325] { Yes See Memoria (Methylpred 7-03 Instructio l nisolone 4 12:04: ns, PO, Herm justo MG Oral 00 Take by Tablet mouth as [Medrol]) } directed Pack on label., [Medrol X 6 day, # Dosepak] 1 Pack, 0 Refill(s) Acetaminoph Yes 1-2 tab, Me moria en 325 MG / 7-03 PO, Q4-6H, l Hydrocodone 12:04: PRN Pain, H ermann Bitartrate 00 X 5 day, # 5 MG Oral 12 tab, 0 Tablet Refill(s) [[place] 5/325] { Yes See Memoria (Methylpred 7-03 Instructio l nisolone 4 12:04: ns, PO, Herm justo MG Oral 00 Take by Tablet mouth as [Medrol]) } directed Pack on label., [Medrol X 6 day, # Dosepak] 1 Pack, 0 Refill(s) Acetaminoph Yes 1-2 tab, Me moria en 325 MG / 7-03 PO, Q4-6H, l Hydrocodone 12:04: PRN Pain, H ermann Bitartrate 00 X 5 day, # 5 MG Oral 12 tab, 0 Tablet Refill(s) [[place] 5/325] { Yes See Memoria (Methylpred 7-03 Instructio l nisolone 4 12:04: ns, PO, Herm justo MG Oral 00 Take by Tablet mouth as [Medrol]) } directed Pack on label., [Medrol X 6 day, # Dosepak] 1 Pack, 0 Refill(s) Acetaminoph Yes 1-2 tab, Me moria en 325 MG / 7-03 PO, Q4-6H, l Hydrocodone 12:04: PRN Pain, H ermann Bitartrate 00 X 5 day, # 5 MG Oral 12 tab, 0 Tablet Refill(s) [[place] 5/325] { Yes See Memoria (Methylpred 7-03 Instructio l nisolone 4 12:04: ns, PO, Herm justo MG Oral 00 Take by Tablet mouth as [Medrol]) } directed Pack on label., [Medrol X 6 day, # Dosepak] 1 Pack, 0 Refill(s) Ketorolac No 4 days Memor ia 09-07 l 12:01: MEDICATION Jeffery 00 WASTE Product Size: 30 mg Product Wasted: ___ mg Ketorolac No 4 days Memor ia 09-07 l 12:01: MEDICATION [place] 00 WASTE Product Size: 30 mg Product Wasted: ___ mg Ketorolac No 4 days Memor ia 09-07 l 12:01: MEDICATION [place] 00 WASTE Product Size: 30 mg Product Wasted: ___ mg Ketorolac 2015-0 No 4 days Memor ia 09-07 l 12:01: MEDICATION Jeffery WASTE Product Size: 30 mg Product Wasted: ___ mg Ketorolac 2015-0 No 4 days Memor ia 09-07 l 12:01: MEDICATION Hubbard WASTE Product Size: 30 mg Product Wasted: ___ mg Ketorolac 2015-0 No 4 days Memor ia 09-07 l 12:01: MEDICATION [place] WASTE Product Size: 30 mg Product Wasted: ___ mg Ketorolac 2015-0 No 4 days Memor ia 09-07 l 12:01: MEDICATION Jeffery WASTE Product Size: 30 mg Product Wasted: ___ mg Ketorolac 2015-0 No 4 days Memor ia 09-07 l 12:01: MEDICATION Hubbard WASTE Product Size: 30 mg Product Wasted: ___ mg Acetaminoph Yes 1 tab, PO, Memoria en 300 MG / 6-21 Q6H, PRN l Codeine 04:40: Pain, X 7 Christy nn Phosphate 00 day, # 28 30 MG Oral tab, 0 Tablet Refill(s) [Tylenol with Codeine #3] Acetaminoph Yes 1 tab, PO, Memoria en 300 MG / 6-21 Q6H, PRN l Codeine 04:40: Pain, X 7 Christy nn Phosphate 00 day, # 28 30 MG Oral tab, 0 Tablet Refill(s) [Tylenol with Codeine #3] Acetaminoph Yes 1 tab, PO, Memoria en 300 MG / 6-21 Q6H, PRN l Codeine 04:40: Pain, X 7 Christy nn Phosphate 00 day, # 28 30 MG Oral tab, 0 Tablet Refill(s) [Tylenol with Codeine #3] Acetaminoph Yes 1 tab, PO, Memoria en 300 MG / 6-21 Q6H, PRN l Codeine 04:40: Pain, X 7 Christy nn Phosphate 00 day, # 28 30 MG Oral tab, 0 Tablet Refill(s) [Tylenol with Codeine #3] Acetaminoph Yes 1 tab, PO, Memoria en 300 MG / 6-21 Q6H, PRN l Codeine 04:40: Pain, X 7 Christy nn Phosphate 00 day, # 28 30 MG Oral tab, 0 Tablet Refill(s) [Tylenol with Codeine #3] Acetaminoph Yes 1 tab, PO, Memoria en 300 MG / 6-21 Q6H, PRN l Codeine 04:40: Pain, X 7 Christy nn Phosphate 00 day, # 28 30 MG Oral tab, 0 Tablet Refill(s) [Tylenol with Codeine #3] Acetaminoph Yes 1 tab, PO, Memoria en 300 MG / 6-21 Q6H, PRN l Codeine 04:40: Pain, X 7 Christy nn Phosphate 00 day, # 28 30 MG Oral tab, 0 Tablet Refill(s) [Tylenol with Codeine #3] Acetaminoph Yes 1 tab, PO, Memoria en 300 MG / 6-21 Q6H, PRN l Codeine 04:40: Pain, X [...] 60 Delroy n 00 tab, 0 Refill(s) tramadol 0 Yes 50 mg = 1 Raúl holland hydrochlori 6-21 tab, PO, l de 50 MG 04:23: Q6H, PRN Christy nn Oral Tablet 00 Pain, X 10 day, # 40 tab, 0 Refill(s) naproxen 0 Yes 500 mg = 1 Mem oria 500 mg oral 6-21 tab, PO, l tablet 04:23: BID, # 60 Delroy n 00 tab, 0 Refill(s) tramadol 0 Yes 50 mg = 1 Raúl holland hydrochlori 6-21 tab, PO, l de 50 MG 04:23: Q6H, PRN Christy nn Oral Tablet 00 Pain, X 10 day, # 40 tab, 0 Refill(s) naproxen 2016-0 Yes 500 mg = 1 Mem oria 500 mg oral 6-21 tab, PO, l tablet 04:23: BID, # 60 Delroy n 00 tab, 0 Refill(s) tramadol 2016-0 Yes 50 mg = 1 Raúl holland hydrochlori 6-21 tab, PO, l de 50 MG 04:23: Q6H, PRN Christy nn Oral Tablet 00 Pain, X 10 day, # 40 tab, 0 Refill(s) naproxen 2016-0 Yes 500 mg = 1 Mem oria 500 mg oral 6-21 tab, PO, l tablet 04:23: BID, # 60 Delroy n 00 tab, 0 Refill(s) tramadol 2016-0 Yes 50 mg = 1 Raúl holland hydrochlori 6-21 tab, PO, l de 50 MG 04:23: Q6H, PRN Christy nn Oral Tablet 00 Pain, X 10 day, # 40 tab, 0 Refill(s) naproxen 2016-0 Yes 500 mg = 1 Mem oria 500 mg oral 6-21 tab, PO, l tablet 04:23: BID, # 60 Delroy n 00 tab, 0 Refill(s) tramadol 2016-0 Yes 50 mg = 1 Raúl holland hydrochlori 6-21 tab, PO, l de 50 MG 04:23: Q6H, PRN Christy nn Oral Tablet 00 Pain, X 10 day, # 40 tab, 0 Refill(s) naproxen 2016-0 Yes 500 mg = 1 Mem oria 500 mg oral 6-21 tab, PO, l tablet 04:23: BID, # 60 Delroy n 00 tab, 0 Refill(s) tramadol 2016-0 Yes 50 mg = 1 Raúl holland hydrochlori 6-21 tab, PO, l de 50 MG 04:23: Q6H, PRN Christy nn Oral Tablet 00 Pain, X 10 day, # 40 tab, 0 Refill(s) naproxen 2016-0 Yes 500 mg = 1 Mem oria 500 mg oral 6-21 tab, PO, l tablet 04:23: BID, # 60 Delroy n 00 tab, 0 Refill(s) tramadol 2016-0 Yes 50 mg = 1 Raúl holland hydrochlori 6-21 tab, PO, l de 50 MG 04:23: Q6H, PRN Christy nn Oral Tablet 00 Pain, X 10 day, # 40 tab, 0 Refill(s) naproxen Yes 500 mg = 1 Mem oria 500 mg oral 6-21 tab, PO, l tablet 04:23: BID, # 60 Delroy n 00 tab, 0 Refill(s) Naproxen No Notes: Memoria 6-21 (Same as: l 03:49: Naprosyn) Hubbard 00 Take with food. Tramadol No Notes: Not Mem oria 6-21 to exceed l 03:49: 400mg/day. Hubbard 00 (Same As: Ultram) Naproxen No Notes: Memoria 6-21 (Same as: l 03:49: Naprosyn) Jeffery 00 Take with food. Tramadol No Notes: Not Mem oria 6-21 to exceed l 03:49: 400mg/day. Hubbard 00 (Same As: Ultram) Naproxen No Notes: Memoria 6-21 (Same as: l 03:49: Naprosyn) Hubbard 00 Take with food. Tramadol 0 No Notes: Not Mem oria 6-21 to exceed l 03:49: 400mg/day. Hubbard 00 (Same As: Ultram) Naproxen No Notes: Memoria 6-21 (Same as: l 03:49: Naprosyn) [place] 00 Take with food. Tramadol 0 No Notes: Not Mem oria 6-21 to exceed l 03:49: 400mg/day. Hubbard 00 (Same As: Ultram) Naproxen No Notes: Memoria 6-21 (Same as: l 03:49: Naprosyn) Hubbard 00 Take with food. Tramadol 0 No Notes: Not Mem oria 6-21 to exceed l 03:49: 400mg/day. Jeffery 00 (Same As: Ultram) Naproxen 0 No Notes: Memoria 6-21 (Same as: l 03:49: Naprosyn) Hubbard 00 Take with food. Tramadol 0 No Notes: Not Mem oria 6-21 to exceed l 03:49: 400mg/day. Hubbard 00 (Same As: Ultram) Naproxen No Notes: Memoria 6-21 (Same as: l 03:49: Naprosyn) Hubbard 00 Take with food. Tramadol No Notes: Not Mem oria 6-21 to exceed l 03:49: 400mg/day. Jeffery 00 (Same As: Ultram) Naproxen No Notes: Memoria 6-21 (Same as: l 03:49: Naprosyn) Hubbard 00 Take with food. Tramadol No Notes: Not Mem oria 6-21 to exceed l 03:49: 400mg/day. Hubbard 00 (Same As: Ultram) Acetaminoph 2013-03 No Notes: Do M emoria en 325 MG / -18 not exceed l Hydrocodone 18:42: 4gm/day of Jeffery Bitartrate 00 acetaminop 10 MG Oral hen. (Same Tablet as: [place] [[place] 325/10) ] Acetaminoph 2013-03 No Notes: Do M emoria en 325 MG / 18 not exceed l Hydrocodone 18:42: 4gm/day of Jeffery Bitartrate 00 acetaminop 10 MG Oral hen. (Same Tablet as: [place] [[place] 325/10) ] Acetaminoph 2013-03 No Notes: Do M emoria en 325 MG / -18 not exceed l Hydrocodone 18:42: 4gm/day of Hubbard Bitartrate 00 acetaminop 10 MG Oral hen. (Same Tablet as: [place] [[place] 325/10) 325] Acetaminoph 2013-03 No Notes: Do M emoria en 325 MG / -18 not exceed l Hydrocodone 18:42: 4gm/day of Jeffery Bitartrate 00 acetaminop 10 MG Oral hen. (Same Tablet as: [place] [[place] 325/10) ] Acetaminoph 2013-03 No Notes: Do M emoria en 325 MG / -18 not exceed l Hydrocodone 18:42: 4gm/day of Jeffery Bitartrate 00 acetaminop 10 MG Oral hen. (Same Tablet as: [place] [[place] 325/10) 10325] Acetaminoph 2013-03 No Notes: Do M emoria en 325 MG / 18 not exceed l Hydrocodone 18:42: 4gm/day of Hubbard Bitartrate 00 acetaminop 10 MG Oral hen. (Same Tablet as: [place] [[place] 325/10) ] Acetaminoph 2013-03 No Notes: Do M emoria en 325 MG / 03-25 not exceed l Hydrocodone 18:42: 4gm/day of Hubbard Bitartrate 00 acetaminop 10 MG Oral hen. (Same Tablet as: [place] [[place] 325/10) 325] Acetaminoph 2013-03 No Notes: Do M emoria en 325 MG / 03-25 not exceed l Hydrocodone 18:42: 4gm/day of Jeffery Bitartrate 00 acetaminop 10 MG Oral hen. (Same Tablet as: [place] [[place] 325/10) ] Phenobarbit 2013-03 No 60 mg, Raúl holland al 18 Route: PO, l 16:00: Drug form: [place] 00 TAB, ONCALL, Dosing Weight 68.182, kg, Start date: 01/23/14 10:00:00, Duration: 30 day, Stop date: 02/22/14 9:59:00 Dexamethaso 2013-03 No 4 mg, 1 Mem oria ne 18 tab, l 16:00: Route: PO, Jeffery 00 Drug form: TAB, ONCALL, Dosing Weight 68.182, kg, Start date: 01/23/14 10:00:00, Duration: 1 doses or times Phenobarbit 2013-03 No 60 mg, Raúl holland al 18 Route: PO, l 16:00: Drug form: [place] 00 TAB, ONCALL, Dosing Weight 68.182, kg, Start date: 01/23/14 10:00:00, Duration: 30 day, Stop date: 02/22/14 9:59:00 Dexamethaso 2013-03 No 4 mg, 1 Mem oria ne 18 tab, l 16:00: Route: PO, Jeffery 00 Drug form: TAB, ONCALL, Dosing Weight 68.182, kg, Start date: 01/23/14 10:00:00, Duration: 1 doses or times Phenobarbit 2014- No 60 mg, Raúl holland al 1-18 Route: PO, l 16:00: Drug form: [place] 00 TAB, ONCALL, Dosing Weight 68.182, kg, Start date: 01/23/14 10:00:00, Duration: 30 day, Stop date: 02/22/14 9:59:00 Dexamethaso 2014- No 4 mg, 1 Mem oria ne 1-18 tab, l 16:00: Route: PO, Jeffery 00 Drug form: TAB, ONCALL, Dosing Weight 68.182, kg, Start date: 01/23/14 10:00:00, Duration: 1 doses or times Phenobarbit 2013- No 60 mg, Raúl holland al -18 Route: PO, l 16:00: Drug form: [place] TAB, ONCALL, Dosing Weight 68.182, kg, Start date: 01/23/14 10:00:00, Duration: 30 day, Stop date: 02/22/14 9:59:00 Dexamethaso 2014- No 4 mg, 1 Mem oria ne 1-18 tab, l 16:00: Route: PO, Jeffery 00 Drug form: TAB, ONCALL, Dosing Weight 68.182, kg, Start date: 01/23/14 10:00:00, Duration: 1 doses or times Phenobarbit 2013- No 60 mg, Raúl holland al -18 Route: PO, l 16:00: Drug form: [place] 00 TAB, ONCALL, Dosing Weight 68.182, kg, Start date: 01/23/14 10:00:00, Duration: 30 day, Stop date: 02/22/14 9:59:00 Dexamethaso 2014-1 No 4 mg, 1 Mem oria ne 1-18 tab, l 16:00: Route: PO, Jeffery Drug form: TAB, ONCALL, Dosing Weight 68.182, kg, Start date: 01/23/14 10:00:00, Duration: 1 doses or times Phenobarbit 2013-1 No 60 mg, Raúl holland al -18 Route: PO, l 16:00: Drug form: [place] TAB, ONCALL, Dosing Weight 68.182, kg, Start date: 01/23/14 10:00:00, Duration: 30 day, Stop date: 02/22/14 9:59:00 Dexamethaso 2013- No 4 mg, 1 Mem oria ne 1-18 tab, l 16:00: Route: PO, [place] 00 Drug form: TAB, ONCALL, Dosing Weight 68.182, kg, Start date: 01/23/14 10:00:00, Duration: 1 doses or times Phenobarbit 2013-03 No 60 mg, Raúl holland al 18 Route: PO, l 16:00: Drug form: Jeffery 00 TAB, ONCALL, Dosing Weight 68.182, kg, Start date: 01/23/14 10:00:00, Duration: 30 day, Stop date: 02/22/14 9:59:00 Dexamethaso 2013-03 No 4 mg, 1 Mem oria ne -18 tab, l 16:00: Route: PO, Jeffery 00 Drug form: TAB, ONCALL, Dosing Weight 68.182, kg, Start date: 01/23/14 10:00:00, Duration: 1 doses or times Phenobarbit 2013-03 No 60 mg, Raúl holland al 18 Route: PO, l 16:00: Drug form: Jeffery TAB ONCALL, Dosing Weight 68.182, kg, Start date: 01/23/14 10:00:00, Duration: 30 day, Stop date: 02/22/14 9:59:00 Dexamethaso 2013-03 No 4 mg, 1 Mem oria ne -18 tab, l 16:00: Route: PO, Jeffery 00 Drug form: TAB, ONCALL, Dosing Weight 68.182, kg, Start date: 01/23/14 10:00:00, Duration: 1 doses or times Sodium 2013-03 No 1,000 mL, Memori a Chloride 03-25 Rate: 125 l 0.154 15:36: ml/hr, Jeffery MEQ/ML 00 Infuse Injectable over: 8 Solution hr, Route: IV, Dosing Weight 68.182 kg, Total Volume: 1,000, Start date: 01/23/14 9:36:00, Duration: 30 day, Stop date: 02/22/14 9:35:00 Saline 2013-03 No Notes: Memoria Flush 0.9% 03-25 Same as: l 15:36: BD Hubbard 00 Posiflush Sterile Sodium 2013-03 No 1,000 mL, Memori a Chloride 1-18 Rate: 125 l 0.154 15:36: ml/hr, Hubbard MEQ/ML 00 Infuse Injectable over: 8 Solution hr, Route: IV, Dosing Weight 68.182 kg, Total Volume: 1,000, Start date: 01/23/14 9:36:00, Duration: 30 day, Stop date: 02/22/14 9:35:00 Saline 2013-03 No Notes: Memoria Flush 0.9% 1-18 Same as: l 15:36: BD Jeffery 00 Posiflush Sterile Sodium 2013-03 No 1,000 mL, Memori a Chloride 1-18 Rate: 125 l 0.154 15:36: ml/hr, Jeffery MEQ/ML 00 Infuse Injectable over: 8 Solution hr, Route: IV, Dosing Weight 68.182 kg, Total Volume: 1,000, Start date: 01/23/14 9:36:00, Duration: 30 day, Stop date: 02/22/14 9:35:00 Saline 2013-03 No Notes: Memoria Flush 0.9% 1-18 Same as: l 15:36: BD Jeffery 00 Posiflush Sterile Sodium 2013-03 No 1,000 mL, Memori a Chloride 1-18 Rate: 125 l 0.154 15:36: ml/hr, Hubbard MEQ/ML 00 Infuse Injectable over: 8 Solution hr, Route: IV, Dosing Weight 68.182 kg, Total Volume: 1,000, Start date: 01/23/14 9:36:00, Duration: 30 day, Stop date: 02/22/14 9:35:00 Saline 2013-03 No Notes: Memoria Flush 0.9% 1-18 Same as: l 15:36: BD Hubbard 00 Posiflush Sterile Sodium 2013-03 No 1,000 mL, Memori a Chloride 1-18 Rate: 125 l 0.154 15:36: ml/hr, Jeffery MEQ/ML 00 Infuse Injectable over: 8 Solution hr, Route: IV, Dosing Weight 68.182 kg, Total Volume: 1,000, Start date: 01/23/14 9:36:00, Duration: 30 day, Stop date: 02/22/14 9:35:00 Saline 2013-03 No Notes: Memoria Flush 0.9% 1-18 Same as: l 15:36: BD Jeffery 00 Posiflush Sterile Sodium 2013-03 No 1,000 mL, Memori a Chloride 1-18 Rate: 125 l 0.154 15:36: ml/hr, Hubbard MEQ/ML 00 Infuse Injectable over: 8 Solution hr, Route: IV, Dosing Weight 68.182 kg, Total Volume: 1,000, Start date: 01/23/14 9:36:00, Duration: 30 day, Stop date: 02/22/14 9:35:00 Saline 2013-03 No Notes: Memoria Flush 0.9% 1-18 Same as: l 15:36: BD Hubbard 00 Posiflush Sterile Sodium 2013-03 No 1,000 mL, Memori a Chloride 1-18 Rate: 125 l 0.154 15:36: ml/hr, Jeffery MEQ/ML 00 Infuse Injectable over: 8 Solution hr, Route: IV, Dosing Weight 68.182 kg, Total Volume: 1,000, Start date: 01/23/14 9:36:00, Duration: 30 day, Stop date: 02/22/14 9:35:00 Saline 2013-03 No Notes: Memoria Flush 0.9% 1-18 Same as: l 15:36: BD Jeffery 00 Posiflush Sterile Sodium 2013-03 No 1,000 mL, Memori a Chloride 1-18 Rate: 125 l 0.154 15:36: ml/hr, Hubbard MEQ/ML 00 Infuse Injectable over: 8 Solution hr, Route: IV, Dosing Weight 68.182 kg, Total Volume: 1,000, Start date: 01/23/14 9:36:00, Duration: 30 day, Stop date: 02/22/14 9:35:00 Saline 2013-03 No Notes: Memoria Flush 0.9% 1-18 Same as: l 15:36: BD Jeffery 00 Posiflush Sterile Immunizations Ordered Immunization Filled Immunization Date Status Commen ts Source Name Name Covid-19 Vaccine 2021-01-[address] [facility] MRNA (PF) 12yr+ 00:00:00 Medical C enter ([place]/[employer])(IM M601) Covid-19 Vaccine 2021-01-[address] [facility] MRNA (PF) 12yr+ 00:00:00 Medical C enter (Pfizer/BioNTech)(IM M601) Covid-19 Vaccine 2021-01-[address] [facility] MRNA (PF) 12yr+ 00:00:00 Medical C enter (Pfizer/BioNTech)(IM M601) Covid-19 Vaccine 2021-01-[address] [facility] MRNA (PF) 12yr+ 00:00:00 Medical C enter (Pfizer/BioNTech)(IM M601) Covid-19 Vaccine 2021-01-[address] [facility] MRNA (PF) 12yr+ 00:00:00 Medical C enter (Pfizer/BioNTech)(IM M601) Covid-19 Vaccine 2021-01-[address] [facility] MRNA (PF) 12yr+ 00:00:00 Medical C enter (Pfizer/BioNTech)(IM M601) Covid-19 Vaccine 2021-01-[address] [facility] [...] 2018-12-[address] [facility] PF 3YR+ ([id number]) 00:00:00 [facility] Influenza Four-QIV 2018-12-[address] [facility] PF 3YR+ ([id number]) 00:00:00 [facility] Center Influenza Four-QIV 2018-12-[address] [facility] PF 3YR+ ([id number]) 00:00:00 [facility] Influenza Four-QIV 2018-12-[address] [facility] PF 3YR+ ([id number]) 00:00:00 [facility] Influenza Four-QIV 2018-12-[address] [facility] PF 3YR+ ([id number]) 00:00:00 [facility] Influenza -QIV 2018-12-[address] [facility] PF 3YR+ ([id number]) 00:00:00 [facility] Influenza Four-QIV 2018-12-[address] [facility] PF 3YR+ ([id number]) 00:00:00 [facility] Center Vital Signs Vital Name Observation Time Observation Value Comments Source HEIGHT 2020-07-30 13:27:00 167.6 cm WEIGHT 2020-07-30 13:27:00 67.223 kg HEIGHT 2020-02-19 15:53:00 167.6 cm WEIGHT 2020-02-19 15:53:00 67.132 kg HEIGHT 2019-12-04 00:00:00 167.6 cm WEIGHT 2019-12-04 00:00:00 67.586 kg HEIGHT 2019-09-26 00:00:00 167.6 cm WEIGHT 2019-09-26 00:00:00 60.782 kg Systolic (mm Hg) 2022-09-04 18:06:00 Raúl rial Hubbard Diastolic (mm Hg) 2022-09-04 18:06:00 Mem orial Jeffery Heart Rate 2022-09-04 18:06:00 [facility] Height 2022-09-04 18:06:00 5 [ft_i] [facility] Weight 2022-09-04 18:06:00 [facility] BMI Calculated 2022-09-04 18:06:00 Memori al Hubbard Systolic (mm Hg) 2022-06-04 18:58:00 Raúl rial Jeffery Diastolic (mm Hg) 2022-06-04 18:58:00 Mem orial Hubbard Heart Rate 2022-06-04 18:58:00 [facility] Height 2022-06-04 18:58:00 5 [ft_i] [facility] Weight 2022-06-04 18:58:00 [facility] Hubbard BMI Calculated 2022-06-04 18:58:00 Memori al Hubbard Systolic blood 2022-02-02 13:01:00 141 mm[Hg] [facility] Diastolic blood 2022-02-02 13:01:00 93 mm[Hg] [facility] Body temperature 2022-02-02 13:01:00 37.67 Teresa [facility] Body height 2022-02-02 13:01:00 167.6 cm [facility] Body weight 2022-02-02 13:01:00 60.782 kg [facility] BMI 2022-02-02 13:01:00 21.63 kg/m2 [facility] Heart rate 2022-01-07 13:05:00 78 /min [facility] Respiratory rate 2022-01-07 13:05:00 17 /min [facility] Respitory Rate 2021-12-11 14:26:00 Memori al [facility] Height 2021-12-11 14:26:00 157.48 cm [facility] Weight 2021-12-11 14:26:00 [facility] Hubbard BMI Calculated 2021-12-11 14:26:00 Memori al Hubbard Systolic (mm Hg) 2021-12-11 14:26:00 Raúl rial Hubbard Diastolic (mm Hg) 2021-12-11 14:26:00 [facility] orial Jeffery Heart Rate 2021-12-11 14:26:00 [facility] Systolic (mm Hg) 2021-11-18 18:32:00 Raúl rial Jeffery Diastolic (mm Hg) 2021-11-18 18:32:00 [facility] orial Jeffery Heart Rate 2021-11-18 18:32:00 [facility] Jeffery Respitory Rate 2021-11-18 18:32:00 Memori al Hubbard Height 2021-11-18 18:32:00 157.48 cm [facility] Weight 2021-11-18 18:32:00 [facility] BMI Calculated 2021-11-18 [facility] Sy[facility]olic blood 2021-08-28 11:05:00 121 mm[Hg] [facility] Diastolic blood 2021-08-28 11:05:00 83 mm[Hg] [facility] Heart rate 2021-08-28 11:05:00 84 /min [facility] Body temperature 2021-08-28 11:05:00 37.22 Teresa [facility] Body height 2021-08-28 11:05:00 167.6 cm [facility] Body weight 2021-08-28 11:05:00 55.339 kg [facility] BMI 2021-08-28 11:05:00 19.69 kg/m2 [facility] Oxygen saturation in 2021-08-28 11:05:00 98 /min [facility] Arterial blood by Medical Ce nter Pulse oximetry Heart Rate 2021-03-31 17:00:00 [facility] Respitory Rate 2021-03-31 17:00:00 Memori al Jeffery Systolic (mm Hg) 2021-03-31 17:00:00 Raúl rial Jeffery Diastolic (mm Hg) 2021-03-31 17:00:00 Mem orial Jeffery Heart Rate 2021-03-31 16:45:00 [facility] Respitory Rate 2021-03-31 16:45:00 Memori al Jeffery Systolic (mm Hg) 2021-03-31 16:45:00 Raúl rial Hubbard Diastolic (mm Hg) 2021-03-31 16:45:00 Mem orial Hubbard Heart Rate 2021-03-31 16:30:00 [facility] Respitory Rate 2021-03-31 16:30:00 Memori al Jeffery Systolic (mm Hg) 2021-03-31 16:30:00 Raúl rial Hubbard Diastolic (mm Hg) 2021-03-31 16:30:00 Mem orial Hubbard Temperature Oral (F) 2021-03-31 15:56:00 36.6 Teresa [facility] Temperature Oral (F) 2021-03-31 14:37:00 36.9 Teresa [facility] Height 2021-03-31 14:37:00 165 cm [facility] Weight 2021-03-31 14:37:00 [facility] Height 2021-03-28 18:44:00 165 cm [facility] Weight 2021-03-28 18:44:00 [facility] Heart Rate 2021-03-13 23:00:00 [facility] Respitory Rate 2021-03-13 23:00:00 Memori al Jeffery Systolic (mm Hg) 2021-03-13 23:00:00 Raúl rial Hubbard Diastolic (mm Hg) 2021-03-13 23:00:00 Mem orial Jeffery Heart Rate 2021-03-13 22:45:00 [facility] Respitory Rate 2021-03-13 22:45:00 Memori al Hubbard Systolic (mm Hg) 2021-03-13 22:45:00 Raúl rial Jeffery Diastolic (mm Hg) 2021-03-13 22:45:00 Mem orial Jeffery Heart Rate 2021-03-13 22:30:00 [facility] Respitory Rate 2021-03-13 22:30:00 Memori al Hubbard Systolic (mm Hg) 2021-03-13 22:30:00 Raúl rial Hubbard Diastolic (mm Hg) 2021-03-13 22:30:00 Mem orial Hubbard Temperature Oral (F) 2021-03-13 21:30:00 36.3 Teresa [facility] Temperature Oral (F) 2021-03-13 17:06:00 36.7 Teresa [facility] Height 2021-03-13 17:06:00 165 cm [facility] Weight 2021-03-13 17:06:00 [facility] Height 2021-03-12 16:49:00 165 cm [facility] Weight 2021-03-12 16:49:00 [facility] Heart Rate 2021-02-24 16:45:00 [facility] Respitory Rate 2021-02-24 16:45:00 Memori al Jeffery Systolic (mm Hg) 2021-02-24 16:45:00 Raúl rial Jeffery Diastolic (mm Hg) 2021-02-24 16:45:00 Mem orial Jeffery Heart Rate 2021-02-24 16:30:00 [facility] Respitory Rate 2021-02-24 16:30:00 Memori al Jeffery Systolic (mm Hg) 2021-02-24 16:30:00 Raúl rial Jeffery Diastolic (mm Hg) 2021-02-24 16:30:00 Mem orial Hubbard Heart Rate 2021-02-24 16:15:00 [facility] Respitory Rate 2021-02-24 16:15:00 Memori al Jeffery Systolic (mm Hg) 2021-02-24 16:15:00 Raúl rial Jeffery Diastolic (mm Hg) 2021-02-24 16:15:00 Mem orial Hubbard Temperature Oral (F) 2021-02-24 15:30:00 36.5 Teresa [facility] Temperature Oral (F) 2021-02-24 13:48:00 36.7 Teresa [facility] Height 2021-02-24 13:48:00 165 cm [facility] Weight 2021-02-24 13:48:00 [facility] Height 2021-02-19 17:54:00 165 cm [facility] Weight 2021-02-19 17:54:00 [facility] Systolic (mm Hg) 2016-10-04 22:20:00 Raúl rial Hubbard Diastolic (mm Hg) 2016-10-04 22:20:00 Mem orial Jeffery Systolic (mm Hg) 2016-10-04 21:30:00 Raúl rial Hubbard Diastolic (mm Hg) 2016-10-04 21:30:00 Mem orial Jeffery Systolic (mm Hg) 2016-10-04 21:00:00 Raúl rial Jeffery Diastolic (mm Hg) 2016-10-04 21:00:00 Mem orial Jeffery Height 2016-10-04 18:51:00 167.64 cm [facility] BMI Calculated 2016-10-04 18:51:00 Memori al Hubbard Respitory Rate 2016-10-04 18:51:00 Memori al Jeffery Heart Rate 2016-10-04 18:51:00 [facility] Weight 2016-10-04 18:51:00 [facility] Systolic (mm Hg) 2015-09-08 12:54:00 Raúl rial Hubbard Diastolic (mm Hg) 2015-09-08 12:54:00 Mem orial Jeffery Respitory Rate 2015-09-08 12:54:00 Memori al Jeffery Heart Rate 2015-09-08 12:54:00 [facility] Weight 2015-09-08 11:20:00 [facility] Respitory Rate 2015-09-08 11:20:00 Memori al Jeffery Heart Rate 2015-09-08 11:20:00 [facility]ery Systolic (mm Hg) 2015-09-08 11:20:00 Raúl rial Hubbard Diastolic (mm Hg) 2015-09-08 11:20:00 Mem orial Jeffery BMI Calculated 2015-09-08 11:20:00 Memori al Hubbard Height 2015-09-08 11:20:00 167.64 cm [facility] Heart Rate 2015-08-27 05:04:00 [facility] Respitory Rate 2015-08-27 05:04:00 Memori al Jeffery Systolic (mm Hg) 2015-08-27 05:04:00 Raúl rial Hubbard Diastolic (mm Hg) 2015-08-27 05:04:00 Mem orial Hubbard BMI Calculated 2015-08-27 03:15:00 Memori al Jeffery Height 2015-08-27 03:15:00 167.64 cm [facility] Weight 2015-08-27 03:15:00 [facility] Temperature Oral (F) 2015-08-27 03:15:00 98.4 F [facility] Respitory Rate 2015-08-27 03:15:00 Memori al Jeffery Heart Rate 2015-08-27 03:15:00 [facility] Systolic (mm Hg) 2015-08-27 03:15:00 Raúl rial Hubbard Diastolic (mm Hg) 2015-08-27 03:15:00 Mem orial Jeffery Height 2014-01-23 15:36:00 167.64 cm [facility] BMI Calculated 2014-01-23 15:36:00 Memori al Hubbard Weight 2014-01-23 15:36:00 [facility] BMI Calculated 2013-12-28 22:11:00 Memori al Jeffery Weight 2013-12-28 22:11:00 [facility] Height 2013-12-28 22:11:00 167.64 cm [facility] Procedures Procedure Date / Time Performing Clinician Source Performed [facility] 2022-01-08 21:22:00 [facility] muscle(s); muscle(s) innervated by facial, trigeminal, cervical spinal and accessory nerves, bilateral (eg, for chronic migraine) ECG 12-LEAD 2021-08-28 11:56:00 Michael Albarran [facility] URINE CULTURE 2021-08-28 11:48:00 Michael Albarran [facility] CBC W/PLT COUNT & AUTO 2021-08-28 11:48:00 Michael Albarran [facility] COMPREHENSIVE METABOLIC 2021-08-28 11:48:00 Avis [facility] HEMOGLOBIN A1C 2021-08-28 11:48:00 [facility] LIPID PANEL 2021-08-28 11:48:00 [facility] HEPATITIS C ANTIBODY 2021-08-28 11:48:00 [facility] VISUAL ACUITY SCREENING 2021-08-28 11:27:00 [facility] INJECTION EPIDURAL OF BLOOD 2021-03-31 15:31:00 [facility] Jeffery OR CLOT PATCH 11879 (N/A)<sup>1</sup> FLUOROSCOPIC GUIDANCE AND 2021-03-13 19:16:00 Me morial Jeffery LOCALIZATION OF NEEDLE OR CATHETER TIP; SPINE INJ. 90620 (N/A)<sup>2</sup> ELECTRONIC ANALYSIS OF 2021-03-13 19:16:00 Memor ial Hubbard IMPLANTED NEUROSTIM. PULSE GEN. COMPLEX SPINAL/PERIPH. NERVE W/PROGRAM 03906 (N/A)<sup>1</sup> INSERTION OF SPINAL 2021-03-13 19:16:00 [facility] NEUROSTIMULATOR 42845 (N/A)<sup>3</sup> PERCUTANEOUS IMPLANTATION 2021-03-13 19:16:00 Me morial Jeffery OF NEUROSTIMULATOR ELECTRODE ARRAY EPIDURAL 82832 (N/A)<sup>4</sup> PERCUTANEOUS IMPLANTATION 2021-02-24 14:37:00 Me morial Hubbard OF NEUROSTIMULATOR ELECTRODE ARRAY EPIDURAL 52047 (N/A)<sup>3</sup> Bladder operation [facility] nn [facility] T[facility] and [facility] nn adenoidectomy Colonoscopy [facility] Gastroscopy [facility] Implanted device [facility] n maintenance report<sup>4</sup> Spinal cord stimulation [facility] Plan of Care Planned Activity Planned Date Details Comments Source Future Scheduled 2026-08-[address] [facility] 00:00:00 (procedure) [code = [facility] 05577687] Future Scheduled 2026-08-[address] [facility] 00:00:00 (procedure) [code = [facility] 74036694] Future Scheduled 2024-05-[address] [facility] (procedure) [code = 550563377] Future Scheduled 2024-05-[address] [facility] 00:[facility]:00 [facility] colon (procedure) [code = 371475755] Future Scheduled 2024-05-[address] [facility] 00:00:00 [facility] colon (procedure) [code = 037780772] Future Scheduled 2024-05-[address] [facility] 00:00:00 [facility] colon (procedure) [code = 438917545] Future Scheduled 2024-05-[address] [facility] 00:00:00 [facility] colon (procedure) [code = 459788654] Future Scheduled 2024-05-[address] [facility] 00:00:00 [facility] colon (procedure) [code = 396016435] Future Scheduled 2024-05-[address] [facility] 00[facility]00:00 [facility] colon (procedure) [code = 347197107] Future Scheduled 2024-05-[address] [facility] 00:00:00 [facility] colon (procedure) [code = 866744234] Future Scheduled 2024-05-[address] [facility] 00:00:00 [facility] colon (procedure) [code = 016938606] Future Scheduled 2024-05-[address] [facility] 00:00:00 [facility] colon (procedure) [code = 463904797] Future Scheduled 2024-05-[address] [facility] 00:00:00 [facility] colon (procedure) [code = 033779984] Future Scheduled 2024-05-[address] [facility] 00:00:00 [facility] colon (procedure) [code = 022419204] Future Scheduled 2024-05-[address] [facility] 00:00:00 malignant neoplasm of [facility] colon (procedure) [code = 382468780] Future Scheduled 2024-05-[address] [facility] 00:00:00 malignant neoplasm of [facility] colon (procedure) [code = 913679539] Future Scheduled 2023-02-[address] [facility] Test 00:00:00 [facility] Scre[facility] (12+) [code = Tobacco Cessation Counseling and Screening (12+)] Future Scheduled 2023-02-[address] [facility] Test 00:00:00 [facility] Screening (12+) [code = Tobacco Cessation Counseling and Screening (12+)] Future Scheduled 2023-02-[address] [facility] Test 00:00:00 [facility] Screening (12+) [code = Tobacco Cessation Counseling and Screening (12+)] Future Scheduled 2023-02-[address] [facility] Test 00:00:00 [facility] Screening (12+) [code = Tobacco Cessation Counseling and Screening (12+)] Future Scheduled 2023-02-[address] [facility] Test 00:00:00 [facility] Screening (12+) [code = Tobacco Cessation Counseling and Screening (12+)] Future Scheduled 2022-11-[address] [facility] Test 00:00:00 (Season Ended) [code = Medic al Center INFLUENZA VACCINE (Season Ended)] Future Scheduled 2022-11-[address] [facility] Test 00:00:00 (Season Ended) [code = Medic al Center INFLUENZA VACCINE (Season Ended)] Future Scheduled 2022-11-[address] [facility] Test 00:00:00 (Season Ended) [code = Medic al Center INFLUENZA VACCINE (Season Ended)] Future Scheduled 2022-11-[address] [facility] Test 00:00:00 (Season Ended) [code = Medic al Center INFLUENZA VACCINE (Season Ended)] Future Scheduled 2022-11-06 Influenza Vaccine (#1[facility]00 [code = Influenza Medical Ce nter Vaccine (#1)] Future Scheduled 2022-10-09 Screening for [facility] Test 00:20:45 malignant neoplasm of colon (procedure) [code = 119118976] Future Scheduled 2022-10-09 Screening for [facility] Test 00:20:45 malignant neoplasm of colon (procedure) [code = 462800827] Future Scheduled 2022-10-09 Screening for [facility] Test 00:20:45 malignant neoplasm of colon (procedure) [code = 051527735] Future Scheduled 2022-10-09 [facility] 00:20:45 (procedure) [code = 933447906] Future Scheduled 2022-10-09 BREAST CANCER [facility] Test 00:20:45 SCREENING [code = BREAST CANCER SCREENING] Future Scheduled 2022-10-09 Screening for [facility] Test 00:20:45 malignant neoplasm of colon (procedure) [code = 619054945] Future Scheduled 2022-10-09 Screening for [facility] Test 00:20:45 malignant neoplasm of colon (procedure) [code = 210843520] Future Scheduled 2022-10-09 [facility]ING[facility]IN[facility] ([facility]:20:45 of 2) [code = SHINGLES VACCINES (1 of 2)] Future Scheduled 2022-10-09 COVID-19 [facility]ACCINE [facility]20:45 Pfizer series) [code = COVID-19 VACCINE (3 - Pfizer series)] Future Scheduled 2022-10-09 65[facility] 00:20:45 VACCINE (1 - PCV) [code = 65+ PNEUMOCOCCAL VACCINE (1 - PCV)] Future Scheduled 2022-10-09 [facility]ACCINE [facility] 00:20:45 [code = INFLUENZA VACCINE] Future Scheduled 2022-08-[address] [...] SUBSEQUENT WELLNESS (YEAR 3 +)] Future Scheduled 2022-03-08 FALLS RISK SCREENING [facility] Test 00:00:00 [code = FALLS RISK Medical C enter SCREENING] Future Scheduled 2022-03-08 FALLS RISK SCREENING [facility] Test 00:00:00 [code = FALLS RISK Medical C enter SCREENING] Future Scheduled 2022-03-08 FALLS RISK SCREENING [facility] Test 00:00:00 [code = FALLS RISK Medical C enter SCREENING] Future Scheduled 2022-03-08 FALLS RISK SCREENING [facility] Test 00:00:00 [code = FALLS RISK Medical C enter SCREENING] Future Scheduled 2022-03-08 FALLS RISK SCREENING [facility] Test 00:00:00 [code = FALLS RISK Medical C enter SCREENING] Future Scheduled 2021-11-21 BREAST CANCER [facility] Test 05:21:41 SCREENING [code = BREAST CANCER SCREENING] Future Scheduled 2021-11-21 COLONOSCOPY SCREENING [facility] Test 05:21:41 [code = COLONOSCOPY SCREENING] Future Scheduled 2021-11-21 SHINGLES VACCINES (1 [facility] Test 05:21:41 of 2) [code = SHINGLES VACCINES (1 of 2)] Future Scheduled 2021-11-21 COVID-19 VACCINE (3 - [facility] Test 05:21:41 Booster for Pfizer series) [code = COVID-19 VACCINE (3 - Booster for Pfizer series)] Future Scheduled 2021-11-21 65+ [facility] 05:21:41 VACCINE (1 - PCV) [code = 65+ PNEUMOCOCCAL VACCINE (1 - PCV)] Future Scheduled 2021-11-21 INFLUENZA VACCINE [facility] Test 05:21:41 [code = INFLUENZA VACCINE] Future Scheduled 2021-11-21 HEPATITIS B VACCINES Met [facility] Test 05:21:41 (1 of 3 - 3-dose series) [code = HEPATITIS B VACCINES (1 of 3 - 3-dose series)] Future Scheduled 2021-11-21 Hepatitis C screening [facility] Test 05:21:41 (procedure) [code = 783576377] Future Scheduled 2021-11-21 Screening for [facility] Test 05:21:41 malignant neoplasm of cervix (procedure) [code = 386790117] Future Scheduled 2021-11-21 BREAST CANCER [facility] Test 05:21:41 SCREENING [code = BREAST CANCER SCREENING] Future Scheduled 2021-11-21 COLONOSCOPY SCREENING [facility] Test 05:21:41 [code = COLONOSCOPY SCREENING] Future Scheduled 2021-11-21 SHINGLES VACCINES (1 Met [facility] Test 05:21:41 of 2) [code = SHINGLES VACCINES (1 of 2)] Future Scheduled 2021-11-21 COVID-19 VACCINE (3 - [facility] Test 05:21:41 Booster for Pfizer series) [code = COVID-19 VACCINE (3 - Booster for Pfizer series)] Future Scheduled 2021-11-21 65+ [facility]CCAL [facility] 05:21:41 VACCINE (1 - PCV) [code = 65+ PNEUMOCOCCAL VACCINE (1 - PCV)] Future Scheduled 2021-11-21 INFLUENZA VACCINE [facility] Test 05:21:41 [code = INFLUENZA VACCINE] Future Scheduled 2021-11-21 HEPATITIS B VACCINES Met [facility] Test 05:21:41 (1 of 3 - 3-dose series) [code = HEPATITIS B VACCINES (1 of 3 - 3-dose series)] Future Scheduled 2021-11-21 Hepatitis C screening [facility] Test 05:21:41 (procedure) [code = 720245125] Future Scheduled 2021-11-21 Screening for [facility] Test 05:21:41 malignant neoplasm of cervix (procedure) [code = 507997449] Future Scheduled 2021-11-06 INFLUENZA VACCINE (#1) C [...] 65+ YRS (1 - PCV)] Future Scheduled 2021-03-18 COVID-19 VACCINE ([facility] Booster for Pfizer Medical C enter series) [code = COVID-19 VACCINE (4 - Booster for Pfizer series)] Future Scheduled 2021-03-18 COVID-19 VACCINE ([facility]:00 Booster for Pfizer Medical C enter series) [code = COVID-19 VACCINE (4 - Booster for Pfizer series)] Future Scheduled 2021-03-18 COVID-19 VACCINE (4 [facility] Booster for Pfizer Medical C enter series) [code = COVID-19 VACCINE (4 - Booster for Pfizer series)] Future Scheduled 2021-03-18 COVID-19 VACCINE (4 - [facility]00 Booster for Pfizer Medical C enter series) [code = COVID-19 VACCINE (4 - Booster for Pfizer series)] Future Scheduled 2021-03-18 COVID-19 VACCINE (4 - [facility]:00 Booster for Pfizer Medical C enter series) [code = COVID-19 VACCINE (4 - Booster for Pfizer series)] Future Scheduled 2006 SHINGLES VACCINES (1 [facility] 00:00:00 [facility]) [code = 944910278] Future Scheduled [address] [facility] 00[facility]:00 (combo) [code = CT Medical C enter Colonography (combo)] Future Scheduled 1956 DXA SCAN [code = DXA [facility] 00:[facility] SCAN] [facility] Future Scheduled [address] [facility] 00:00:00 [facility] (procedure) [code = 032678276] Future Scheduled [address] [facility] [facility] 00:00:00 [facility]procedure) [code = 140869623] Future Scheduled 1956 Sigmoidoscopy [facility]code [facility]] [facility] Future Scheduled [address] [facility] 00:00:00 [facility] breast (procedure) [code = 603420642] Future Scheduled [address] [facility] 00:00:00 (combo) [code = CT Medical C enter Colonography (combo)] Future Scheduled 1956 DXA SCAN [code = DXA [facility] 00:00:00 SCAN] [facility] Future Scheduled [address] [facility] 00:00:00 [facility] (procedure) [code = 532052286] Future Scheduled [address] [facility] 00:00:00 [facility] (procedure) [code = 717656219] Future Scheduled 1956 [facility]oscopy [facility]code [facility]] [facility] Future Scheduled [address] [facility] 00:00:00 [facility] (procedure) [code = 441739612] Future Scheduled [address] [facility] 00:00:00 (combo) [code = CT Medical C enter Colonography (combo)] Future Scheduled 1956 DXA SCAN [code = DXA [facility] 00:00:[facility] SCAN] [facility] Future Scheduled [address] [facility] 00:00:00 [facility]procedure) [code = 517132723] Future Scheduled [address] [facility] 00:00:00 [facility]procedure) [code = 173205515] Future Scheduled 1956 [facility]code [facility]] [facility] Future Scheduled [address] [facility] 00:00:00 [facility] breast (procedure) [code = 704130896] Future Scheduled [address] [facility] 00:00:00 (combo) [code = CT Medical C enter Colonography (combo)] Future Scheduled 1956 DXA SCAN [code = DXA [facility] 00:00:00 SCAN] [facility] Future Scheduled [address] [facility] 00:00:00 [facility] (procedure) [code = 475992350] Future Scheduled [address] [facility] 00:00:00 [facility] (procedure) [code = 983119186] Future Scheduled 1956 [facility]code [facility]] [facility] Future Scheduled [address] [facility] 00:00:00 [facility] breast (procedure) [code = 441789337] Future Scheduled [address] [facility] 00:00:00 (combo) [code = CT Medical C enter Colonography (combo)] Future Scheduled 1956 DXA SCAN [code = DXA [facility] 00:00:00 SCAN] [facility] Future Scheduled [address] [facility] 00:00:00 [facility] (procedure) [code = 898621363] Future Scheduled [address] [facility] 00:00:00 [facility] (procedure) [code = 350124420] Future Scheduled 1956 [facility]code [facility]] [facility] Future Scheduled [address] [facility] 00:00:00 malignant [facility] breast (procedure) [code = 114137783] Future Scheduled [address] [facility] 00:00:00 (combo) [code = CT Medical C enter Colonography (combo)] Future Scheduled 1956 DXA SCAN [code = DXA [facility] 00:00:00 SCAN] [facility] Future Scheduled [address] [facility] [facility] 00:00:00 [facility]procedure) [code = 898480225] Future Scheduled [address] [facility] [facility] 00:00:00 [facility] (procedure) [code = 565922404] Future Scheduled 1956 [facility]code [facility]] [facility] Future Scheduled 1956 Sigmoidoscopy [facility]code [facility]] [facility] r Future Scheduled [address] [facility] 00:00:00 malignant neoplasm of [facility] breast (procedure) [code = 651819201] Future Scheduled [address] [facility] 00[facility]00:00 (combo) [code = CT Medical C enter Colonography (combo)] Future Scheduled 1956 DXA SCAN [code = DXA [facility] 00:00:00 SCAN] [facility] Future Scheduled [address] [facility] 00:00:00 [facility] (procedure) [code = 954495221] Future Scheduled [address] [facility] 00:00:00 [facility]procedure) [code = 270837576] Encounters Start End Encounter Admission Attending Care Care Encounter Source Date/Time Date/Time Type Type Clinicians Facility Department ID 2021-11-25 Outpatient MARIA A UP [id number] 09:45:[facility] 2023-01-01 2023-01-01 Outpatient KEEGAN ALLISON [id number] Memoria 13:15:00 13:15:00 13 anisa Gil 2022-10-04 2022-10-05 Between KEEGAN RAPP [id number] Memoria 19:15:50 19:15:50 Visit Neurology 00 l Gustavo Gil 2022-10-04 2022-10-05 Outpatient MHMISCHER MHMISCHER [id number] 14:15:50 14:15:50 00 2022-09-04 2022-09-05 Outpatient MHIE MNA [id number] Memoria 18:00:00 04:59:59 Neurology 12 anisa Gil 2022-09-04 2022-09-04 [id number] 13:00:00 23:59:59 Jose 12 Sam 2022-09-04 2022-09-04 Outpatient MHIE MHIE [id number] Memoria 13:00:00 13:00:00 12 anisa Gil 2022-09-04 2022-09-04 Outpatient MHIE MHIE [id number] Memoria 13:00:00 13:00:00 12 anisa Gil 2022-06-11 2022-06-11 Ambulatory MHIE MNA [id number] Memoria 14:45:00 14:45:00 Pre-Reg Neurology 10 l Gustavo Gil 2022-06-11 2022-06-11 Ambulatory MHIE MNA [id number] Memoria 14:45:00 14:45:00 Pre-Reg Neurology 10 anisa Gil 2022-06-11 2022-06-11 Outpatient MHIE MHIE [id number] Memoria 09:45:00 09:45:00 10 anisa Gil 2022-06-11 2022-06-11 Outpatient [facility] [id number] 09:45:00 09:45:00 Jose 10 Sam 2022-06-04 2022-06-05 Outpatient MHIE MNA [id number] Memoria 19:00:00 04:59:59 Neurology 11 anisa Gil 2022-06-04 2022-06-05 Outpatient MHIE MNA [id number] Memoria 19:00:00 04:59:59 Neurology 11 anisa Gil 2022-06-04 2022-06-04 Outpatient SAMIA HernandezER MISCHER [id number] 14:00:00 23:59:59 Jose 11 Sam 2022-06-04 2022-06-04 Outpatient IE [facility] [id number] [place] [address] 14:00:00 14:00:00 11 anisa Gil 2022-06-03 2022-06-03 Refill Asaelian, [facility] [id number] [facility] 00:[facility] 00:00:00 [facility] 2022-06-03 2022-06-03 Refill Jenbenjaizian, [facility] [id number] 00:[facility]00 00:00:00 [facility] 2022-05-25 2022-05-25 Refill Katrinizian, [facility] [id number] 00:00[facility]00 00:00:00 [facility] 2022-05-25 2022-05-25 Refill Asaelian, [facility] [id number] 00:00:00 00:00:00 [facility] 2022-05-20 2022-05-20 Refill Jenbenjaizian, [facility] [id number] 00:00:00 00:00:00 [facility] 2022-05-20 2022-05-20 Refill Jenbenjaizian, [facility] [id number] 00:00[facility]00 00:00:00 [facility] 2022-05-13 2022-05-13 Refill Jenbenjaizian, [facility] [id number] 00:00:00 00:00:00 [facility] 2022-05-13 2022-05-13 Refill Jenbenjaizian, [facility] [id number] 00:00:00 00:00:00 [facility] 2022-05-05 2022-05-05 Refill Jenbenjaizian, [facility] [id number] 00:00[facility]00 00:00:00 [facility] 2022-05-05 2022-05-05 [facility] [id number] [facility] 00:00:00 00:00:00 [facility] 2022-04-28 2022-04-28 Ambulatory MHIE MNA [id number] Memoria 22:15:00 22:15:00 Pre-Reg Neurology 09 l Gustavo Gil 2022-04-28 2022-04-28 Ambulatory MHIE MNA [id number] Memoria 22:15:00 22:15:00 Pre-Reg Neurology 09 anisa Gil 2022-04-28 2022-04-28 Outpatient MHIE MHIE [id number] Memoria 16:15:00 16:15:00 09 anisa Jeffery 2022-04-28 2022-04-28 Outpatient BEHZAD HernandezMISCHER [id number] 16:15:00 16:15:[address] [place] [address] 2022-04-27 2022-04-27 Office Mary [facility] [id number] Univers 16:00:00 16:40:00 Visit [facility] [id number] [facility] [id number] Rudy as SAVANNAH?BLEA [id number] [address] OFFICE [facility] 2022-04-27 2022-04-27 Outpatient MASON BERMUDEZ [facility] [id number] Univers 16:00:00 16:00:00 MASON HERNANDEZ itkyara [facility] 2022-04-20 2022-04-20 Ambulatory MHIE MNA [id number] Memoria 19:30:00 19:30:00 Pre-Reg Neurology 05 anisa Chen Jeffery 2022-04-20 2022-04-20 Ambulatory MHIE MNA [id number] Memoria 19:30:00 19:30:00 Pre-Reg Neurology 05 anisa Chen Jeffery 2022-04-20 2022-04-20 Outpatient MHIE MHIE [id number] Memoria 13:30:00 13:30:00 05 anisa Jeffery 2022-04-20 2022-04-20 Outpatient BEHZAD Hernandez MHMISCHER [id number] 13:30:00 13:30:00 Jose 05 Sam 2022-03-10 2022-03-10 Ambulatory MHIE MNA [id number] Memoria 19:15:00 19:15:00 Pre-Reg Neurology 06 anisa Gil 2022-03-10 2022-03-10 Ambulatory MHIE MNA [id number] Memoria 19:15:00 19:15:00 Pre-Reg Neurology 06 anisa Gil 2022-03-10 2022-03-10 Outpatient MHIE MHIE [id number] Memoria 13:15:00 13:15:00 06 anisa Gil 2022-03-10 2022-03-10 [facility]patient [facility] [id number] 13:15:00 13:15:00 Jose 06 Sam 2022-03-06 2022-03-06 Ambulatory MHIE MNA [id number] Memoria 14:15:00 14:15:00 Pre-Reg Neurology 01 anisa Chen [facility] 2022-03-06 2022-03-06 Ambulatory MHIE MNA [id number] Memoria 14:15:00 14:15:00 Pre-Reg Neurology anisa Chen [facility] 2022-03-06 2022-03-06 [facility]patient [facility] [id number] 08:15:00 08:15:00 Jose 01 Sam 2022-03-06 2022-03-06 Refill Avis [facility] [id number] 00:00[facility]00 00:00:00 [facility] 2022-03-06 2022-03-06 Refill Avis [facility] [id number] 00:00:00 00:00:00 [facility] 2022-02-23 2022-02-23 Ambulatory MHIE MNA [id number] Memoria 20:00:00 20:00:00 Pre-Reg Neurology 08 anisa Chen [facility] 2022-02-23 2022-02-23 Ambulatory MHIE MNA [id number] Memoria 20:00:00 20:00:00 Pre-Reg Neurology 08 anisa Gil 2022-02-23 2022-02-23 Outpatient MHIE MHIE [id number] Memoria 14:00:00 14:00:00 08 anisa Gil 2022-02-23 2022-02-23 Outpatient SHILOH [facility]ER [facility] [id number] 14:00:00 14:00:00 Jose Tio Vargas 2022-02-11 2022-02-11 Ambulatory MHIE MNA [id number] Memoria 16:45:00 16:45:00 Pre-Reg Neurology 07 anisa Gil 2022-02-11 2022-02-11 Ambulatory MHIE MNA [id number] Memoria 16:45:00 16:45:00 Pre-Reg Neurology 07 anisa Gil 2022-02-11 2022-02-11 Outpatient MHIE MHIE [id number] Memoria 10:45:00 10:45:00 07 anisa Gil 2022-02-11 2022-02-11 [facility] [id number] 10:45:00 10:45:00 Jose Bethany Vargas 2022-02-02 2022-02-02 Video - Avis [facility] [id number] 13:00:00 13:28:30 [facility] 2022-02-02 2022-02-02 Video - Avis [facility] [id number] 13:00:00 13:28:30 [facility] 2022-02-02 2022-02-02 Telephone Avis [facility] [id number] 00:00:00 00:00:00 [facility] 2022-02-02 2022-02-02 Telephone Avis [facility] [id number] 00:00[facility]00 00:00:00 [facility] 2022-01-20 2022-01-20 Video - Avis [facility] [id number] 16:40:00 17:00:00 [facility] 2022-01-20 2022-01-20 Video - Avis, [facility] [id number] 16:40:00 17:00:00 [facility] 2022-01-13 2022-01-13 Refill Avis [facility] [id number] 00:00:00 00:00:00 [facility] 2022-01-13 2022-01-13 Refill Avis, [facility] [id number] 00:00:00 00:00:00 [facility] 2022-01-08 2022-01-09 Outpatient nullFlavo MNA [id number] Memoria 20:15:00 04:59:59 r Neurology 04 l [facility] 2022-01-08 2022-01-09 Outpatient nullFlavo MNA [id number] Memoria 20:15:00 04:59:59 r Neurology 04 l Gustavo [facility] 2022-01-09 2022-01-09 Telephone Avis [facility] [id number] 00:00:00 00:00:00 [facility] 2022-01-09 2022-01-09 Tabitha Brizuela [facility] [id number] 00:00:00 00:00:[address] [facility] 2022-01-09 2022-01-09 Telephone Avis [facility] [id number] 00:00:00 00:00:00 [facility] 2022-01-09 2022-01-09 Tabitha Brizuela [facility] [id number] 00:00:00 00:00:[address] [facility] 2022-01-08 2022-01-08 [facility] [id number] 15:15:00 23:59:59 Jose Vargas 2022-01-08 2022-01-08 Outpatient IE IE [id number] Memoria 15:15:00 15:15:00 04 anisa Gil 2022-01-07 2022-01-07 Office Benoit, [facility] [id number] 13:00:00 13:45:28 Visit [facility] 2022-01-07 2022-01-07 Office Maynoreva, [facility] [id number] 13:00:00 13:45:28 Visit [facility] 2022-01-06 2022-01-06 Orders Hussain [facility] [id number] 00:00:00 00:00:00 Only [facility] 2022-01-06 2022-01-06 Orders Hussain [facility] [id number] 00:00:00 00:00:00 Only [facility] 2022-01-06 2022-01-06 Orders Hussain [facility] [id number] 00:00:00 00:00:00 Only [facility] 2022-01-06 2022-01-06 Orders Hussain [facility] [id number] 00:00:00 00:00:00 Only [facility] 2022-01-02 2022-01-02 Refill Avis [facility] [id number] 00:00:00 00:00:00 [facility] 2022-01-02 2022-01-02 Telephone Avis [facility] [id number] 00:00:00 00:00:00 [facility] 2022-01-02 2022-01-02 Refill Avis [facility] [id number] 00:00:00 00:00:00 [facility] 2022-01-02 2022-01-02 Refill Avis [facility] [id number] 00:00:00 00:00:00 [facility] 2022-01-02 2022-01-02 Telephone Avis [facility] [id number] 00:00:00 00:00:00 [facility] 2022-01-02 2022-01-02 Refill Avis [facility] [id number] 00:00:00 00:00:00 [facility] 2021-12-22 2021-12-22 Ambulatory nullFlavo MNA [id number] Memoria 15:00:00 15:00:00 Pre-Reg r Neurology 02 l [place] [facility] 2021-12-22 2021-12-22 Ambulatory nullFlavo MNA [id number] Memoria 15:00:00 15:00:00 Pre-Reg r Neurology 02 l Gustavo [facility] 2021-12-22 2021-12-22 Outpatient MHIE MHIE [id number] Memoria 10:00:00 10:00:00 02 anisa [facility] 2021-12-22 2021-12-22 Outpatient STEW HernandezSCHER MHMISCHER [id number] 10:00:00 10:00:00 Jose 02 Sam 2021-12-17 2021-12-17 Outpatient MHIE MHIE [id number] Memoria 15:45:00 15:45:00 01 anisa [facility] 2021-12-11 2021-12-12 Outpatient nullFlavo MNA [id number] Memoria 14:00:00 04:59:59 r Neurology 03 l [place] [facility] 2021-12-11 2021-12-12 Outpatient nullFlavo MNA [id number] Memoria 14:00:00 04:59:59 r Neurology 03 l Gustavo Gil 2021-12-11 2021-12-11 Outpatient SHILOH HernandezMISCHER MHMISCHER [id number] 09:00:00 23:59:59 Jose 03 Sam 2021-12-11 2021-12-11 Outpatient MHIE MHIE [id number] Memoria 09:00:00 09:00:00 03 l [facility] 2021-12-05 2021-12-05 Refill Jenbenjaizian, [facility] [id number] [facility] 00:00:00 00:00:00 [facility] 2021-12-05 2021-12-05 Refill Jenbenjaizian, [facility] [id number] 00:00:00 00:00:00 [facility] 2021-12-01 2021-12-01 Video - Jenjeanieian, [facility] [id number] 10:20:00 11:00:02 [facility] 2021-12-01 2021-12-01 Video - Asaelian, [facility] [id number] 10:20:00 11:00:02 [facility] 2021-12-01 2021-12-01 Abstract Vandergaag, [facility] [id number] 00:00:00 00:00:00 [facility] 2021-12-01 2021-12-01 Abstract Vandergaag, [facility] [id number] 00:00:00 00:00:00 [facility] 2021-11-29 2021-11-29 Refill Avis, [facility] [id number] 00:00:00 00:00:00 [facility] 2021-11-29 2021-11-29 Refill Avis, [facility] [id number] 00:00:00 00:00:00 [facility] 2021-11-27 2021-11-27 Telephone Avis [facility] [id number] 00:00:00 00:00:00 [facility] 2021-11-27 2021-11-27 Telephone Avis [facility] [id number] 00:00:00 00:00:00 [facility] 2021-11-18 2021-11-19 Outpatient nullFlavo MNA [id number] Memoria 18:15:00 04:59:59 r Neurology 00 l Gustavo Dallasann 2021-11-18 2021-11-19 Outpatient nullFlavo MNA [id number] Memoria 18:15:00 04:59:59 r Neurology 00 l Gustavo Gil 2021-11-18 2021-11-18 Outpatient [facility]ILOH [facility] [id number] 13:15:00 23:59:59 Jose 00 Sam 2021-11-18 2021-11-18 Outpatient MHIE SHILOHIE [id number] [facility] 13:15:00 13:15:00 00 l Jeffery 2021-11-12 2021-11-12 Outpatient FOG_Arthur_ [facility] AOSM [id number] Katerin 00:00:00 00:00:00 Dalila [id number] [facility] 2021-11-05 2021-[facility]-05 [facility] [id number] 00:00[facility]00 00:00:00 [facility] 2021-11-05 2021-11-05 Orders Chata [facility] [id number] 00:00:00 00:00:[address] [facility] 2021-11-05 2021-11-05 Refill Avis [facility] [id number] 00:00:00 00:00:00 [facility] 2021-11-05 2021-11-05 Tabitha Brizuela [facility] [id number] 00:00:00 00:00:[address] [facility] 2021-10-31 2021-10-31 [facility] [id number] 00:00:00 00:00:00 [facility] 2021-10-31 2021-10-31 Refill Avis [facility] [id number] 00:00:00 00:00:00 [facility] 2021-10-14 2021-10-14 Refill Avis, [facility] [id number] 00:00:00 00:00:00 [facility] 2021-10-13 2021-10-13 Telephone Chata [facility] [id number] 00:00:00 00:00:00 [facility] 2021-10-12 2021-10-12 Refill Avis, [facility] [id number] 00:00:00 00:00:00 [facility] 2021-10-10 2021-10-10 Telephone Avis, [facility] [id number] 00:00:00 00:00:00 [facility] 2021-10-09 2021-10-09 Orders Avis, [facility] [id number] 00:00:00 00:00:00 Only [facility] 2021-10-08 2021-10-08 Telephone Avis, [facility] [id number] 00:00:00 00:00:00 [facility] 2021-10-06 2021-10-06 Refill Avis, [facility] [id number] 00:00:00 00:00:00 [facility] 2021-10-06 2021-10-06 Orders Chata, [facility] [id number] 00:00:00 00:00:[address] [facility] 2021-10-02 2021-10-02 Telephone Avis [facility] [id number] 00:00:00 00:00:00 [facility] 2021-09-23 2021-09-23 [facility] [id number] 00:00:00 00:00:00 [facility] 2021-08-28 2021-08-28 Office Avis [facility] [id number] [facility] St 11:20:00 11:56:12 Visit [facility] 2021-08-13 2021-08-13 Telephone Jeanie Moore2.840.1 [id number] Methodi 00:00:00 00:00:00 Sami 22406.1.1 705 Raymon 3.430.2.7 Hospit a .3.789167 l .8 2021-08-06 2021-08-06 [facility] [id number] [facility] 00:00:00 00:00:00 [facility] 2021-07-19 2021-07-19 Refill Avis [facility] [id number] 00:00:00 00:00:00 [facility] 2021-07-18 2021-07-18 [facility] [id number] 00:00:00 00[facility]00 [facility] 2021-07-08 2021-07-08 [facility] [id number] [facility] 00[facility]00 [facility] 2021-07-07 2021-07-07 Refill Avis [facility] [id number] [facility] 00:[facility]00 00[facility]00:00 [facility] 2021-06-18 2021-06-18 Outpatient Senan_S VFP VFP [id number] [facility] 06:54:00 06:54:00 [id number] [facility] 2021-05-24 2021-05-24 Refill Avis [facility] [id number] 00[facility]00[facility]00 00:00:00 [facility] 2021-05-20 2021-05-20 Telephone Avis [facility] [id number] [facility] 00:[facility] 00:00:00 [facility] 2021-05-19 2021-05-19 [facility] [id number] [facility] 00[facility]00 [facility] 2021-05-16 2021-05-16 [facility] [id number] [facility] 00[facility]00 [facility] 2021-05-15 2021-05-15 Telephone Avis, [facility] [id number] [facility] 00:00[facility]00 00:00:00 [facility] 2021-05-08 2021-05-08 [facility] [id number] [facility] 11:35:00 12:32:17 [facility] 2021-05-01 2021-05-01 [facility] [id number] [facility] 00:00:00 [facility] 2021-04-28 2021-04-28 Travel 1.2.840.1 1.2.428.779 3664 [id number] Methodi 00:00:00 00:00:[address] 3.430.2.7 0.2.7.3.698 Ho spita .3.726699 084.8 l .8 2021-04-12 2021-04-12 [facility] [id number] 00:[facility]00 00:00:00 [facility] 2021 2021 [facility] [id number] 00:[facility]00 00:00:00 [facility] 2021-04-03 2021-04-03 Outpatient Senan_S VFP VFP [id number] Village 01:55:00 01:55:00 [id number] Family Practic e 2021-04-02 2021-04-02 Outpatient Senan_S VFP VFP [id number] [facility] 05:45:00 05:45:00 [id number] Family Practic e 2021-04-02 2021-04-02 [facility] [id number] [facility] St 00:00:00 00:00:00 [facility] 2021-04-01 2021-04-01 Radha Jessiebenjaminervarenetta[facility] [id number] [facility] St 00:00:00 00:00:00 [facility] 2021-03-31 2021-03-31 Outpatient nullFlavo TOPS [id number] Memoria 13:52:50 17:20:00 [facility] 2021-03-31 2021-03-31 Outpatient nullFlavo TOPS [id number] Memoria 13:52:50 17:20:00 [facility] 2021-03-31 2021-03-31 Outpatient Sandoval, [id number] 07:52:50 11:20:00 Nae Sauceda 2 2021-03-31 2021-03-31 Outpatient nullFlavo [facility] [id number] Memoria 07:52:50 11:20:00 bhavesh lange Hubbard 2021-03-26 2021-03-26 Travel 1.2.840.1 1.2.124.840 [id number] Methodi 00:00:00 00:00:[address] 3.430.2.7 0.2.7.3.698 Ho spita .3.083297 084.8 l .8 2021-03-25 2021-03-25 Transcribe Abi, 1.2.840.1 [id number] Methodi 00:00:00 00:00:00 Orders Rick 36195.1.[address] 3.430.2.7 Hospit a .3.543478 l .8 2021-03-13 2021-03-13 Outpatient nullFlavo TOP [id number] Memoria 16:31:30 23:28:00 r Surgical [facility] 2021-03-132021-03-13 Outpatient nullFlavo TOPS 92049 Memoria 16:31:30 23:28:00 r Surgical l [facility] 2021-03-13 2021-03-13 Outpatient Sandoval, [id number] 442 10:31:30 17:28:00 Nae Sauceda 2 2021-03-13 2021-03-13 Outpatient nullFlavo TSS [id number] Memoria 10:31:30 17:28:00 bhavesh Gil 2021-03-13 2021-03-13 Radha Albarran, [facility] [id number] 00:[facility]00 00:00:00 [facility] 2021-03-06 2021-03-06 Travel 1.2.840.1 1.2.350.926 7929 [id number] Methodi 00:00:00 00:00:[address] 3.430.2.7 0.2.7.3.698 Ho spita .3.975647 084.8 l .8 2021-03-05 2021-03-05 Transcribe Abi, 1.2.840.1 [id number] Methodi 00:00:00 00:00:00 Orders Rick 67104.1.[address] 3.430.2.7 Hospit a .3.744432 l .8 2021-02-24 2021-02-24 Outpatient nullFlavo TOPS [id number] Memoria 15:26:12 17:32:00 r Surgical l [facility] 2021-02-24 2021-02-24 Outpatient nullFlavo TOPS [id number] Memoria 15:26:12 17:32:00 r Surgical [facility] 2021-02-24 2021-02-24 Outpatient Sandoval, [id number] 09:26:12 11:32:00 Nae Sauceda 2 2021-02-24 2021-02-24 Outpatient nullFlavo TSS [id number] Memoria 09:26:12 11:32:00 bhavesh anisa Hubbard 2021-02-21 2021-02-21 [facility] [id number] 00:[facility]00 00:00:00 Only [facility] 2021-02-21 2021-02-21 Telephone Avis [facility] [id number] 00:[facility]00 00:00:00 [facility] 2021-02-19 2021-02-19 Orders Avis [facility] [id number] 00:00[facility]00 00:00:00 Only [facility] 2021-02-19 2021-02-19 [facility] [id number] 00:[facility]00 00:00:00 [facility] 2021-02-07 2021-02-07 Refill Jessiebenjaminervaren[facility] [id number] 00:00[facility]00 00:00:00 [facility] 2021-02-04 2021-02-04 [facility] [id number] 00:00[facility]00 00:00:00 [facility] 2021-02-03 2021-02-03 Travel 1.2.840.1 1.2.222.115 4877 [id number] Methodi 00:00:00 00:00:[address] 3.430.2.7 0.2.7.3.698 Ho spita .3.076165 084.8 l .8 2021-01-29 2021-01-29 Travel 1.2.840.1 1.2.160.093 0152 165318 Methodi 00:00:00 00:00:[address] 3.430.2.7 0.2.7.3.698 Ho spita .3.576021 084.8 l .8 2021-01-24 2021-01-24 [facility] [id number] 00:[facility]00 00:00:00 Only [facility] 2021-01-24 2021-01-24 Refill Jenevizian, [facility] [id number] 00:00[facility]00 00:00:00 [facility] 2021-01-15 2021-01-15 Refill Jenevizian, [facility] [id number] 00:00[facility]00 00:00:00 [facility] 2020-12-30 2020-12-30 Refill Jenevizian, [facility] [id number] [facility] 00:00[facility]00 00:00:00 [facility] 2020-12-24 2020-12-24 Refill Jenbenjaizian, [facility] [id number] 00:00[facility]00 00:00:00 [facility] 2020-12-23 2020-12-23 Refill Jenbenjaizian, [facility] [id number] 00:00:00 00:00:00 [facility] 2020-12-16 2020-12-16 Refill Jenevizian, [facility] [id number] 00:00:00 00:00:00 [facility] 2020-12-13 2020-12-13 Refill Jenbenjaizian, [facility] [id number] 00:00[facility]00 00:00:00 [facility] 2020-12-10 2020-12-10 Outpatient JENBENJAIZIAN, [facility] [id number] [facility]00 00:00:00 [facility] 2020-12-08 2020-12-08 Refill Jenjeanieian, [facility] [id number] 00:00:00 00:00:00 [facility] 2020-12-05 2020-12-05 Telephone Oscar, 1.2.840.1 [id number] Methodi 00:00:00 00:00:[address] Kumar 3.430.2.7 [facility].686654 l .8 2020-11-27 2020-11-27 Telephone Avis [facility] [id number] 00:00[facility]00 00:00:00 [facility] 2020-09-04 2020-09-[address] [facility] [id number] 00:[facility]00 00:00:00 , [facility] 2020-09-04 2020-09-[address] [facility] [id number] [facility] 00:00:00 [facility] 2020-08-27 2020-08-[address] [facility] [id number] [facility]00 00:00:00 [facility] 2020-08-21 2020-08-[address] [facility] [id number] 00:00:00 00:00:00 , [facility] 2020-08-20 2020-08-20 Outpatient [facility] [id number] [place] 00:00:00 00:00:[address] 2020-07-30 2020-07-[address] [facility] [id number] [facility]00 00:00:00 [facility] 2020-06-26 2020-06-26 Outpatient SLE SLE [id number] [facility] 00:00:00 00:00:00 2020-06-19 2020-06-19 Outpatient [facility]H [facility] [id number] [facility] 00:00:00 00:00:00 2020-06-10 2020-06-10 Outpatient [facility] [id number] [facility] 00[facility]00:00 00:00:00 [facility] 2020-05-29 2020-05-29 Outpatient SLE [facility] [id number] [facility] 00:00:00 00:00:00 2020-05-29 2020-05-[address] [facility] [id number] [facility] 00:00:00 [facility] 2020-05-15 2020-05-15 Outpatient SYSTEM, [facility] [id number] [facility] 00:00:00 00:00:00 [facility] 2020-05-15 2020-05-15 Outpatient SYSTEM, [facility] [id number] [facility] 00:00:00 00:00:00 [facility] 2020-05-15 2020-05-15 Outpatient EL JENEVIZIAN, [facility] [id number] [facility] 00:00:00 00:00:00 [facility] 2020-05-14 2020-05-14 Outpatient SYSTEM, [facility] [id number] [facility] 00:00:00 00:00:00 [facility] 2020-05-14 2020-05-14 Outpatient SYSTEM, [facility] [id number] [facility] 00:00:00 00:00:00 [facility] 2020-05-14 2020-05-14 Outpatient EL JENEVIZIAN, [facility] SL [id number] [facility] 00:00:00 00:00:00 [facility] 2020-05-14 2020-05-14 Outpatient JENBENJAIZIAN, [facility] [id number] [facility] 00:00:00 [facility] 2020-05-07 2020-05-07 Outpatient JENBENJAIZIAN, [facility] [id number] [facility] 00[facility]00 [facility] 2020-04-30 2020-04-30 Outpatient JENBENJAIZIAN, [facility] [id number] [facility]00 00:00:00 [facility] 2020-04-22 2020-04-22 Outpatient JENBENJAIZIAN, [facility] [id number] [facility]00 00:00:00 [facility] 2020-02-21 2020-02-21 Outpatient JENJEANIEIAN, [facility] [id number] [facility]00 00:00:00 [facility] 2020-02-19 2020-02-19 Outpatient JENJEANIEIAN, [facility] [id number] [facility] 00:00:00 [facility] 2019-12-04 2019-12-04 Outpatient JENBENJAIZIAN, [facility] [id number] [facility]00 00:00:00 [facility] 2019-09-26 2019-09-26 Outpatient ASAELIAN, [facility] [id number] 00:00[facility]00 00:00:00 [facility] 2019-09-21 2019-09-21 Outpatient TRISTON DALEY, [facility] [id number] [facility] 00:00:00 00:00:00 GLADIS 2019-09-13 2019-09-13 Outpatient OSCAR, [facility] [id number] [place] 00:00:00 00:00:[address] 2019-09-06 2019-09-06 Outpatient ASAELIAN, [facility] [id number] [facility]00 00:00:00 [facility] 2019-07-06 2019-07-[address] [facility] [id number] 14:58:37 15:49:28 [facility] 2019-07-06 2019-07-[address] [facility] [id number] 14:58:37 14:58:37 [id number] [facility] 2019-06-25 2019-06-25 Outpatient [facility] [id number] eClinic 14:24:00 14:24:00 Primary Primary alWork s Care Care 2019-06-21 2019-06-[address] [facility] [id number] 00:00:00 00:00:00 [id number] [facility] 2019-06-14 2019-06-14 Emergency [facility] [id number] SL 11:41:00 11:41:00 [id number] 2019-05-10 2019-05-10 Outpatient ASAELIAN, [facility] [id number] [facility]00 00:00:00 [facility] 2019-05-10 2019-05-[address] [facility] [id number] 00:00:00 00:00:00 [id number] [facility] 2019-02-23 2019-02-25 Phone nullFlavo MNA [id number] Memoria 16:45:14 05:59:59 Message r Neuroscienc 01 l e [facility] 2019-02-23 2019-02-25 Phone nullFlavo MNA [id number] Memoria 16:45:14 05:59:59 Message r Neuroscienc 01 l e [facility] 2019-02-23 2019-02-24 Outpatient MHMISCHER MHINSCHER [id number] 10:45:14 23:59:59 2019-02-01 2019-02-[address] [facility] [id number] [facility]:00[facility]00 00:00:00 [facility] 2018-10-21 2018-10-[address] [facility] [id number] 00:00[facility]00 00:00:00 [facility] 2018-05-09 2018-05-11 Outside nullFlavo MNA [id number] Memoria 19:22:00 05:59:59 Medical r Neuroscienc 00 l Records e [facility] 2018-05-09 2018-05-11 Outside nullFlavo MNA [id number] Memoria 19:22:00 05:59:59 Medical r Neuroscienc 00 l Records e [facility] 2018-05-09 2018-05-10 [id number] 13:22:00 23:59:59 2016-10-04 2016-10-04 Emergency nullFlavo [facility] [id number] Memoria 18:50:00 22:28:[address] [facility] 2016-10-04 2016-10-04 Emergency nullFlavo [facility] [id number] Memoria 18:50:00 22:28:00 r Jeffery Goldstein [address] [place] [address] 2016-10-04 2016-10-04 Outpatient SAUMYA Cole [facility] [id number] 13:50:00 17:28:00 Yung Hayder Brain 2015-09-08 2015-09-08 EC nullFlavo [facility] [id number] Memoria 11:17:00 12:59:00 Emergency r Jeffery Goldstein 05 l [facility] 2015-09-08 2015-09-08 EC nullFlavo [facility] [id number] Memoria 11:17:00 12:59:00 Emergency r Jeffery The 05 l [facility] 2015-09-08 2015-09-08 Outpatient SAUMYA Jean [facility] [id number] 06:17:00 07:59:00 Gaurav 2015-08-27 2015-08-27 EC nullFlavo [facility] [id number] Memoria 03:11:00 05:05:00 Emergency r Hubbard The 04 [facility] 2015-08-27 2015-08-27 EC nullFlavo [facility] [id number] Memoria 03:11:00 05:05:00 Emergency r Hubbard The 04 [facility] 2015-08-26 2015-08-27 Outpatient SAUMYA Moore [facility] [id number] 22:11:00 00:05:00 Melquiades Barragan 2015-07-12 2015-07-12 Unknown nullFlavo [facility] 10075 f00-2 Memoria 18:16:00 18:16:00 r Family g4l-3kg6-c l Medicine, [id number] [facility] [id number] 2015-07-12 2015-07-12 Unknown nullFlavo [facility] 95613 f00-2 Memoria 18:16:00 18:16:00 r [facility] e7v-1uv4-h l Medicine, [id number] [facility] [id number] 2015-07-12 2015-07-12 Outpatient [facility] [id number] eClinic 13:16:00 13:16:00 [facility]. 2015-05-09 2015-05-09 Refill nullFlavo [facility] 6aa5b f48-c Memoria 21:44:00 21:44:00 r Family bbd-47ae-a l Medicine, [id number] [facility] e891ed 2015-05-09 2015-05-09 Refill nullFlavo [facility] 6aa5b f48-c Memoria 21:44:00 21:44:00 r Family bbd-47ae-a l Medicine, [id number] [facility] e891ed 2015-05-09 2015-05-09 Refill nullFlavo [facility] be673 92d-c Memoria 20:44:00 20:44:00 r Family ca2-4b9e-8 l Medicine, [id number] [facility] 2923e6 2015-05-09 2015-05-09 Refill nullFlavo [facility] be673 92d-c Memoria 20:44:00 20:44:00 r [facility] ca2-4b9e-8 l Medicine, [id number] [facility] 2923e6 2015-05-09 2015-05-09 Outpatient [facility] [id number] eClinic 15:44:00 15:44:00 [facility] Medicine, Medicine, PLL[facility]. PLLC. 2015-05-02 2015-05-02 Refill nullFlavo [facility] d7e80 673-f Memoria 18:43:00 18:43:00 Request r [facility] fbf-4bfd-a l Medicine, [id number] [facility] b77e0c 2015-05-02 2015-05-02 Refill nullFlavo [facility] 4733e 552-2 Memoria 18:43:00 18:43:00 Request r [facility] 6g0-8267-3 l Medicine, 1m2-35op1e [facility] f52e80 2015-05-02 2015-05-02 Refill nullFlavo [facility] d7e80 673-f Memoria 18:43:00 18:43:00 Request r [facility] fbf-4bfd-a l Medicine, [id number] [facility] b77e0c 2015-05-02 2015-05-02 Refill nullFlavo [facility] 4733e 552-2 Memoria 18:43:00 18:43:00 Request r [facility] 2d9-5395-6 l Medicine, 7o8-30ss2s [facility] f52e80 2015-05-02 2015-05-02 Refill nullFlavo [facility] 141ec f63-f Memoria 17:43:00 17:43:00 Request r Family cde-4737-8 l Medicine, af1-d1523z [facility] a4c4ba 2015-05-02 2015-05-02 Refill leslieFlavo [facility] 141ec f63-f Memoria 17:43:00 17:43:00 Request r cde-4737-8 l Medicine, af1-q3974g [facility] a4c4ba 2015-05-02 2015-05-02 Outpatient [facility] [id number] eClinic 12:43:00 12:43:00 Terrence Simpson alWork s Family Medicine, Medicine, PLL[facility]. PLLC. 2014-12-13 2014-12-14 Outpatient nullFlavo [facility] [id number] Memoria 21:07:00 04:59:00 r Outpatient 14 l Imaging [facility] 2014-12-13 2014-12-14 Outpatient nullFlavo [facility] [id number] Memoria 21:07:00 04:59:00 r Outpatient 14 l Imaging [facility] 2014-12-13 2014-12-13 Outpatient Korin Lopez [place] [id number] 16:07:00 23:59:00 Guillermina 14 2014-12-12 2014-12-12 Unknown nullFlavo Hennessey 57939j de-7 Memoria 15:20:00 15:20:00 r Primary 633-4fba-8 l Care, [place] [id number] [facility] 635d15 2014-12-12 2014-12-12 Unknown [facility] cf6a5d 40-3 Memoria 15:20:00 15:20:00 r Primary ba2-426d-a l Care, PA 29d-6324cf [facility] just[facility] 47608m 2014-12-12 2014-12-12 [facility] 104[facility]-7 Memoria 15:20:00 15:20:00 r Primary 633-4fba-8 l Care, PA 0m8-642w8a Herm justo 635d15 2014-12-12 2014-12-12 Unknown nullFlavo Hennessey cf6a5d 40-3 Memoria 15:20:00 15:20:00 r Primary ba2-426d-a l Care, PA 29d-6324cf Herm justo 40459q 2014-12-12 2014-12-12 Unknown nullFlavo Hennessey afcb17 ce-f Memoria 14:20:00 14:20:00 r Primary h27-5x63-y l Care, [place] 15i-0697f8 [facility] 91aab4 2014-12-12 2014-12-12 [facility] ce-f Memoria 14:20:00 14:20:00 r Primary g16-8f13-y l Care, PA 15s-6003f8 [facility] 91aab4 2014-09-12 2014-09-13 Outpt Diag nullFlavo [facility] [id number] Memoria 22:00:00 04:59:00 Services r Outpatient 13 l Imaging [facility] 2014-09-12 2014-09-13 Outpt Diag nullFlavo [facility] [id number] Memoria 22:00:00 04:59:00 Services r Outpatient 13 l Imaging [facility] 2014-09-12 2014-09-12 Outpatient Sprintz, 2.16.840. 2.16.840.1. [id number] 17:00:00 23:59:00 Gaurav 1.546479. 543768.3.61 13 Yariel 3.615.0.1 5.0.421 94 1584-06-02 2014-08-08 Outpt Diag nullFlavo [facility] [id number] Memoria 12:37:00 04:59:00 Services r Outpatient 12 l Imaging [facility] 2014-08-07 2014-08-08 Outpt Diag nullFlavo [facility] [id number] Memoria 12:37:00 04:59:00 Services r Outpatient 12 l Imaging [facility] 2014-08-07 2014-08-07 Outpatient Kristin, 2.16.840. 2.16.840.1. 8 [id number] 07:37:00 23:59:00 Bonaventure 1.473968. 466553.3.61 12 B 3.615.0.1 5.0.508 45 7671-03-26 2014-05-31 Medication nullFlavo [place] [address] bo5349-q Memoria 17:09:00 17:09:00 cost r Family 2ae-4465-9 [facility], [id number] [facility] 29bfe9 2014-05-31 2014-05-31 Medication nullFlavo [facility] 28 1r54sv-i Memoria 17:09:00 17:09:00 cost r 4y0-63os-4 l Medicine, 343-l4459j [facility] f0b79c 2014-05-31 2014-05-31 Medication leslieFlavo [facility] 74 aa6912-h Memoria 17:09:00 17:09:00 cost r 2ae-4465-9 l Medicine, [id number] [facility] 29bfe9 2014-05-31 2014-05-31 Medication leslieFlavo [facility] 28 6q78un-m Memoria 17:09:00 17:09:00 cost r 7v9-17tw-4 l Medicine, 343-z3500c [facility] f0b79c 2014-05-31 2014-05-31 [facility] zao96v-1 Memoria 16:09:00 16:09:00 cost r Family 1y3-7sxw-n l Medicine, 642-7p504l [facility] b74fcd 2014-05-31 2014-05-31 Medication Kierra [facility] 52 bho37m-9 Memoria 16:09:00 16:09:00 cost r 5x1-3vpm-d l Medicine, 642-2d195l [facility] b74fcd 2014-05-07 2014-05-07 [facility] e3ab7 e15-7 Memoria 17:00:00 17:00:00 r Family 364-449e-a l Medicine, l86-sl1l0n [facility] 8f87be 2014-05-07 2014-05-07 Unknown leslieFlavo [facility] 3aed8 898-5 Memoria 17:00:00 17:00:00 r Family ca3-404f-a l Medicine, [id number] [facility] 91t495 2014-05-07 2014-05-07 Unknown Xandero [facility] e3ab7 e15-7 Memoria 17:00:00 17:00:00 r Family 364-449e-a l Medicine, p96-bn4j0t [facility] 8f87be 2014-05-07 2014-05-07 Unknown nullFlavo [facility] 3aed8 898-5 Memoria 17:00:00 17:00:00 r Family ca3-404f-a l Medicine, 001-4270c8 [facility] 98r801 2014-05-07 2014-05-07 Unknown nullFlavo [facility] 95aa3 152-4 Memoria 16:00:00 16:00:00 r Family v0i-3q14-k l Medicine, 6e1-710hqn [facility] ull231 2014-05-07 2014-05-07 Unknown nullFlavo [facility] 95aa3 152-4 Memoria 16:00:00 16:00:00 r Family q8x-7z45-i l Medicine, 4l6-963yjt [facility] jun958 2014-04-23 2014-04-23 questions nullFlavo [facility] 383 11n89-5 Memoria 22:04:00 22:04:00 r Family s32-0usn-e l Medicine, 6fc-8d105j [facility] 877f4e 2014-04-23 2014-04-23 questions nullFlavo [facility] 598 h497z-m Memoria 22:04:00 22:04:00 r Family 4ab-4988-9 l Medicine, ff2-9ad45a [facility] 7m1221 2014-04-23 2014-04-23 questions nullFlavo [facility] 383 83h96-5 Memoria 22:04:00 22:04:00 r Family a71-7sip-d l Medicine, 6fc-0k431i [facility] 877f4e 2014-04-23 2014-04-23 questions nullFlavo [facility] 598 g860q-e Memoria 22:04:00 22:04:00 r Family 4ab-4988-9 l Medicine, ff2-9ad45a [facility] 3q3340 2014-04-23 2014-04-23 questions nullFlavo [facility] 70f 1le90-9 Memoria 21:04:00 21:04:00 r Family 35a-4a76-b l Medicine, g55-u6f00o [facility] bc3dc2 2014-04-23 2014-04-23 questions nullFlavo Kristofer Ocampo 70f 6jc86-5 [facility] 21:04:00 21:04:00 r Family 35a-4a76-b l Medicine, [id number] [facility] bc3dc2 2014-04-23 2014-04-23 having a nullFlavo Kristofer Ocampo 6b64 e4e6-1 [facility] 19:30:00 19:30:00 problem r Family be0-42f9-8 l sleeping, Medicine, 35e-89b4c9 [facility] 06052d and diarrhea 2014-04-23 2014-04-23 having a nullFlavo Kristofer [facility]camp[facility] da43 a1ca-a [facility] 19:30:00 19:30:00 problem r Family 705-4dc9-9 l sleeping, Medicine, [id number] [facility] 4b89b3 and diarrhea 2014-04-23 2014-04-23 having a nullFlavo Kristofer [facility]camp[facility] 6b64 e4e6-1 [facility] 19:30:00 19:30:00 problem r Family be0-42f9-8 l sleeping, Medicine, 35e-89b4c9 [facility] 14509a and diarrhea 2014-04-23 2014-04-23 having a nullFlavo Kristofer [facility] da43 a1ca-a [facility] 19:30:00 19:30:00 problem r Family 705-4dc9-9 l sleeping, Medicine, [id number] [facility] 4b89b3 and diarrhea 2014-04-23 2014-04-23 having a nullFlavo Tibbie Terrence fd0a 08aa-4 [facility] 18:30:00 18:30:00 problem r Family 980-4b5f-a l sleeping, Medicine, 2a4-x5xm90 [facility] 08f244 and diarrhea 2014-04-23 2014-04-23 having a nullFlavo Tibbie Terrence fd0a 08aa-4 [facility] 18:30:00 18:30:00 problem r Family 980-4b5f-a l sleeping, Medicine, 3f7-b2aa76 [facility] 05a506 and diarrhea 2014-04-19 2014-04-19 sleep nullFlavo Kristofer Ocampo 06e17 4d6-c [facility] 15:37:00 15:37:00 r acc-4708-b l Medicine, [id number] [facility] 8f5b76 2014-04-19 2014-04-19 sleep nullFlavo Tibbie Terrence b80fa e83-a [facility] 15:37:00 15:37:00 r Family e64-5c62-v l Medicine, 60d-234ad8 [facility] 750b74 2014-04-19 2014-04-19 sleep nullFlavo Tibbie Terrence 06e17 4d6-c [facility] 15:37:00 15:37:00 r acc-4708-b l Medicine, [id number] [facility] 8f5b76 2014-04-19 2014-04-19 sleep nullFlavo Tibbie Terrence b80fa e83-a [facility] 15:37:00 15:37:00 r b60-0r74-u l Medicine, 60d-234ad8 [facility] 750b74 2014-04-19 2014-04-19 sleep nullFlavo [facility] fd715 e9d-d [facility] 14:37:00 14:37:00 r 0h6-4sj4-v l Medicine, 5n1-f46l13 [facility] 0eadb2 2014-04-19 2014-04-19 sleep nullFlavo Tibbie Terrence fd715 e9d-d [facility] 14:37:00 14:37:00 r 3b3-8bo3-g l Medicine, 4h0-u39f72 [facility] 0eadb2 2014-04-10 2014-04-10 requesting nullFlavo [facility] 43 365j3l-0 [facility] 14:21:00 14:21:00 Cipro r 06a-40db-8 l Medicine, [id number] [facility] 04a79d 2014-04-10 2014-04-10 requesting nullFlavo Tibbie Terrence 15 eeedc9-f [facility] 14:21:00 14:21:00 Cipro r Family 10d-4902-9 l Medicine, [id number] [facility] eb83bf 2014-04-10 2014-04-10 requesting nullFlavo Tibbie Terrence 43 395d4y-0 [facility] 14:21:00 14:21:00 Cipro r Family 06a-40db-8 l Medicine, x7p-89638m [facility] 04a79d 2014-04-10 2014-04-10 requesting nullFlavo Kristofer Ocampo 15 eeedc9-f [facility] 14:21:00 14:21:00 Cipro r Family 10d-4902-9 l Medicine, 3d6-s76236 [facility] eb83bf 2014-04-10 2014-04-10 requesting nullFlavo Kristofer Ocampo 50 34z66b-6 [facility] 13:21:00 13:21:00 Cipro r Family 33c-4c8e-8 l Medicine, 874-5r3084 [facility] 9t5104 2014-04-10 2014-04-10 requesting nullFlavo Kristofer Ocampo 50 21z38p-2 [facility] 13:21:00 13:21:00 Cipro r 33c-4c8e-8 l Medicine, 874-8q2052 [facility] 1o6480 2014-04-03 2014-04-03 refill nullFlavo Kristofer Ocampo dc5dd 565-6 [facility] 20:13:00 20:13:00 request r Family 948-44ef-a l for Medicine, 57f-d3fb7f [facility] 939c2e 0.625 2014-04-03 2014-04-03 refill nullFlavo Kristofer Ocampo 2afb8 275-6 [facility] 20:13:00 20:13:00 request r Family 750-4590-a l for Medicine, da9-33e2c8 [facility] d079d8 0.625 2014-04-03 2014-04-03 refill nullFlavo Kristofer Ocampo dc5dd 565-6 [facility] 20:13:00 20:13:00 request r Family 948-44ef-a l for Medicine, 57f-d3fb7f [facility] 939c2e 0.625 2014-04-03 2014-04-03 refill nullFlavo Kristofer Ocampo 2afb8 275-6 [facility] 20:13:00 20:13:00 request r Family 750-4590-a l for Medicine, da9-33e2c8 [facility] d079d8 0.625 2014-04-03 2014-04-03 refill nullFlavo Kristofer Ocampo 85193 a6e-b [facility] 19:13:00 19:13:00 request r Family b00-439h-0 l for Medicine, 59b-e50bdf [facility] 22cc33 0.625 2014-04-03 2014-04-03 refill nullFlavo Kristofer Ocampo 77295 a6e-b [facility] 19:13:00 19:13:00 request r Family n34-001r-7 l for Medicine, 59b-e50bdf [facility] 22cc33 0.625 2014-04-03 2014-04-03 Unknown nullFlavo Kristofer Ocampo 1b2fd fad-e [facility] 16:45:00 16:45:00 r Family 76b-444a-b l Medicine, [id number] [facility] x4p621 2014-04-03 2014-04-03 Unknown nullFlavo Kristofer Ocampo 402bd 74e-9 [facility] 16:45:00 16:45:00 r Family alex-4585-a l Medicine, dc2-3w5311 [facility] rs3983 2014-04-03 2014-04-03 Unknown nullFlavo Kristofer Ocampo 29574 24f-3 [facility] 16:45:00 16:45:00 r Family 2u5-8b00-k l Medicine, 1h8-90x89o [facility] f09e3f 2014-04-03 2014-04-03 Unknown nullFlavo Kristofer Ocampo c6497 c36-a [facility] 16:45:00 16:45:00 r Family 84c-4086-8 l Medicine, 7o9-f21902 [facility] 71g275 2014-04-03 2014-04-03 Unknown nullFlavo Kristofer Ocampo 1b2fd fad-e [facility] 16:45:00 16:45:00 r Family 76b-444a-b l Medicine, [id number] [facility] f4b961 2014-04-03 2014-04-03 Unknown nullFlavo Kristofer Ocampo 402bd 74e-9 [facility] 16:45:00 16:45:00 r Family alex-4585-a l Medicine, dc2-4o7350 [facility] zs0879 2014-04-03 2014-04-03 Unknown nullFlavo Kristofer Ocampo 44685 24f-3 [facility] 16:45:00 16:45:00 r Family 4n7-8d66-s l Medicine, 9k9-04o20w [facility] f09e3f 2014-04-03 2014-04-03 Unknown nullFlavo Kristofer Ocampo c6497 c36-a [facility] 16:45:00 16:45:00 r Family 84c-4086-8 l Medicine, 5z0-x90918 [facility] 23o509 2014-04-03 2014-04-03 Unknown nullFlavo Kristofer Ocampo ea4d3 6d4-9 [facility] 15:45:00 15:45:00 r Family 4cb-4006-b l Medicine, ca0-342f54 [facility] b4ac21 2014-04-03 2014-04-03 Unknown nullFlavo Kristofer Ocampo 9054c 42d-b [facility] 15:45:00 15:45:00 r Family t35-02r5-g l Medicine, 6u9-6m43z4 [facility] 02r616 2014-04-03 2014-04-03 Unknown nullFlavo Kristofer Ocampo ea4d3 6d4-9 [facility]oria 15:45:00 15:45:00 r Family 4cb-4006-b l Medicine, ca0-342f54 [facility] b4ac21 2014-04-03 2014-04-03 Unknown nullFlavo Kristofer Ocampo 9054c 42d-b [facility] 15:45:00 15:45:00 r Family o03-15t7-h l Medicine, 5p3-7z24s9 [facility] 15g038 2014-03-27 2014-03-27 has nullFlavo Kristofer Ocampo 4359c 8e4-4 [facility]oria 14:08:00 14:08:00 another r Family 1fc-4acb-9 l sinus Medicine, 9u7-e54834 [facility] fe7d73 2014-03-27 2014-03-27 has nullFlavo Kristofer Ocampo a09bf 6d9-4 [facility]oria 14:08:00 14:08:00 another r Family p00-69sx-4 l sinus Medicine, [id number] [facility] e2f7a9 2014-03-27 2014-03-27 has nullFlavo Kristofer Ocampo 4359c 8e4-4 [facility]oria 14:08:00 14:08:00 another r Family 1fc-4acb-9 l sinus Medicine, 7t7-w61372 [facility] fe7d73 2014-03-27 2014-03-27 has nullFlavo Kristofer Ocampo a09bf 6d9-4 [facility]oria 14:08:00 14:08:00 another r Family t93-37zx-3 l sinus Medicine, [id number] [facility] e2f7a9 2014-03-27 2014-03-27 has nullFlavo Kristofer Ocampo 3b7d3 d4e-a [facility] 13:08:00 13:08:00 another r Family 8o6-74pm-u l sinus Medicine, 92e-3fc2c5 [facility] 57e8be 2014-03-27 2014-03-27 has nullFlavo Kristofer Ocampo 3b7d3 d4e-a [facility] 13:08:00 13:08:00 another r Family 7w3-57yq-x l sinus Medicine, 92e-3fc2c5 [facility] 57e8be 2014-03-16 2014-03-16 Other nullFlavo Kristofer Ocampo 7fda0 32a-c [facility] 16:43:00 16:43:00 r Family n1r-5250-7 l Medicine, 317-u6l735 [facility] 23fa4a 2014-03-16 2014-03-16 Other nullFlavo Kristofer Ocampo ca720 6d4-0 [facility]oria 16:43:00 16:43:00 r Family db8-4c61-8 l Medicine, 299-f080c7 [facility] 58457k 2014-03-16 2014-03-16 Other nullFlavo Kristofer Ocampo 7fda0 32a-c [facility] 16:43:00 16:43:00 r Family w6d-7537-3 l Medicine, 317-g6f418 [facility] 23fa4a 2014-03-16 2014-03-16 Other nullFlavo Kristofer Ocampo ca720 6d4-0 [facility]oria 16:43:00 16:43:00 r Family db8-4c61-8 l Medicine, 299-f080c7 [facility] 85881h 2014-03-16 2014-03-16 Other nullFlavo Kristofer Ocampo a6c72 19a-4 [facility]oria 15:43:00 15:43:00 r c82-3f8g-y l Medicine, c65-rho81m [facility] 3w8637 2014-03-16 2014-03-16 Other nullFlavo Kristofer Ocampo a6c72 19a-4 [facility]oria 15:43:00 15:43:00 r Family j31-7x5o-g l Medicine, n02-ipy58t [facility] 3o6682 2014-02-06 2014-02-06 refill nullFlavo Kristofer Ocampo 5294d 6e4-e [facility]oria 14:12:00 14:12:00 request r Family eaf-4f1d-b l for Nexium Medicine, [id number] [facility] 8ae10b 2014-02-06 2014-02-06 refill nullFlavo Kristofer Ocampo ee1e7 405-3 [facility] 14:12:00 14:12:00 request r Family 8cc-44d1-8 l for Nexium Medicine, 40f-2fcabf [facility] fa3e29 2014-02-06 2014-02-06 refill nullFlavo Kristofer Ocampo 5294d 6e4-e [facility] 14:12:00 14:12:00 request r Family eaf-4f1d-b l for Nexium Medicine, 478-2f7940 [facility] 8ae10b 2014-02-06 2014-02-06 refill nullFlavo Kristofer Ocampo ee1e7 405-3 [facility] 14:12:00 14:12:00 request r Family 8cc-44d1-8 l for Nexium Medicine, 40f-2fcabf [facility] fa3e29 2014-02-06 2014-02-06 refill nullFlavo Kristofer Ocampo 0eebf e83-5 [facility]oria 13:12:00 13:12:00 request r Family l9s-8850-3 l for Nexium Medicine, 1b6-8s64as [facility] 7ae96e 2014-02-06 2014-02-06 refill nullFlavo [facility] 0eebf e83-5 Memoria 13:12:00 13:12:00 request r i3f-6508-4 l for Nexium Medicine, 2n9-0u42ft [facility] 7ae96e 2014-01-24 2014-01-24 refill nullFlavo [facility] 86ab3 8b5-1 [facility]oria 20:24:00 20:24:00 request r 02c-4855-9 l for Medicine, ff6-77fc17 [facility] c8b24d 0.625 Cream 2014-01-24 2014-01-24 refill nullFlavo [facility] 897dc b6c-5 Memoria 20:24:00 20:24:00 request r t5o-90e4-a l for Medicine, z85-x3022d [facility] 39f0c2 0.625 Cream 2014-01-24 2014-01-24 refill nullFlavo [facility] 86ab3 8b5-1 [facility]oria 20:24:00 20:24:00 request r 02c-4855-9 l for Medicine, ff6-77fc17 [facility] c8b24d 0.625 Cream 2014-01-24 2014-01-24 refill nullFlavo [facility] 897dc b6c-5 Memoria 20:24:00 20:24:00 request r v8c-75w0-p l for Medicine, x79-d0500u [facility] 39f0c2 0.625 Cream 2014-01-24 2014-01-24 refill nullFlavo [facility] c5bb5 6ff-b Memoria 19:24:00 19:24:00 request r 2w5-411f-9 l for Medicine, 0ce-368578 [facility] 109e33 0.625 Cream 2014-01-24 2014-01-24 refill nullFlavo [facility] c5bb5 6ff-b [facility]oria 19:24:00 19:24:00 request r 0a2-994m-3 l for Medicine, 0ce-943648 [facility] 109e33 0.625 Cream 2014-01-23 2014-01-23 Bedded nullFlavo [facility] [id number] 975 Memoria 15:00:00 19:10:00 Outpatient bhavesh Gaytan 03 [facility] 2014-01-23 2014-01-23 Bedded Kierra [facility] [id number] Memoria 15:00:00 19:10:00 Outpatient bhavesh Gaytan 03 [facility] 2014-01-23 2014-01-23 Outpatient Kristin, [id number]. [id number] 09:00:00 13:10:00 [place] [id number]. [id number] 03 B 3.615.0.1 5.0.685 34 7891-10-24 2013-12-29 pre-op nullFlavo Kristofer Ocampo 2ef68 472-0 [facility]oria 14:45:00 14:45:00 cleared r Family 9da-48e7-9 l for Medicine, m52-35a41q [facility] 6r5222 Wednesday2013-12-29 2013-12-29 pre-op nullFlavo Kristofer Ocampo 3f3d4 d16-0 [facility]oria 14:45:00 14:45:00 cleared r Family ab2-4f52-8 l for Medicine, 8k3-27m8x1 [facility] 99x700 Wednesday2013-12-29 2013-12-29 pre-op nullFlavo Kristofer Ocampo 2ef68 472-0 Memoria 14:45:00 14:45:00 cleared r Family 9da-48e7-9 l for Medicine, t14-70m84i [facility] 6x5161 Wednesday2013-12-29 2013-12-29 pre-op nullFlavo Kristofer Ocampo 3f3d4 d16-0 Memoria 14:45:00 14:45:00 cleared r Family ab2-4f52-8 l for Medicine, 3d1-93u9x7 [facility] 01z764 Wednesday2013-12-29 2013-12-29 pre-op nullFlavo Kristofer Ocampo 5b66f 12c-a [facility]oria 13:45:00 13:45:00 cleared r Family 7t9-8527-j l for Medicine, p83-8634v2 [facility] 3722fe Wednesday2013-12-29 2013-12-29 pre-op nullFlavo [facility] 5b66f 12c-a Memoria 13:45:00 13:45:00 cleared r Family 5y0-5781-n l for Medicine, n23-9471z5 [facility] 3722fe Wednesday2013-12-28 2013-12-29 Outpatient nullFlavo [facility] 8501 [id number] Memoria 17:48:00 04:59:[address] [facility] 2013-12-28 2013-12-29 Outpatient nullFlavo [facility] 8501 [id number] Memoria 17:48:00 04:59:[address] [facility] 2013-12-28 2013-12-28 Outpatient Kristin, 2.16.840. [id number]. [id number] 12:48:00 23:59:00 [place] [id number]. [id number] 02 B 3.615.0.1 5.0.816 22 1595-10-17 2013-12-22 Refill [facility]Fl[facility] 227-7 Memoria 15:47:00 15:47:00 r Family i2h-2722-9 l Medicine, 8da-bb9d65 [facility] 259f22 2013-12-22 2013-12-22 Refill nullFlavo [facility] 2fad7 b7c-2 Memoria 15:47:00 15:47:00 r Family 0f0-0hi2-c l Medicine, dde-7bc1b9 [facility] ffa7f7 2013-12-22 2013-12-22 Refill nullFlavo [facility] bc9ea 227-7 Memoria 15:47:00 15:47:00 r Family b8q-0382-4 l Medicine, 8da-bb9d65 [facility] 259f22 2013-12-22 2013-12-22 Refill nullFlavo [facility] 2fad7 b7c-2 Memoria 15:47:00 15:47:00 r Family 1p3-3bu7-v l Medicine, dde-7bc1b9 [facility] ffa7f7 2013-12-22 2013-12-22 Refill nullFlavo [facility] a4568 66e-8 Memoria 14:47:00 14:47:00 r Family s48-00v1-5 l Medicine, 39b-a22cb0 [facility] j9y149 2013-12-22 2013-12-22 Refill nullFlavo Kristofer Ocampo a4568 66e-8 Memoria 14:47:00 14:47:00 r Family p92-90u3-7 l Medicine, 39b-a22cb0 [facility] h4x306 2013-12-20 2013-12-20 Unknown nullFlavo Kristofer Ocampo 26484 6cb-3 Memoria 14:18:00 14:18:00 r Family 695-48a1-8 l Medicine, 5v1-591u0o [facility] 4375dd 2013-12-20 2013-12-20 Unknown nullFlavo Kristofer Ocampo 176cc df9-a Memoria 14:18:00 14:18:00 r Family 8a9-9798-e l Medicine, 028-ccf46f [facility] b6e91f 2013-12-20 2013-12-20 Unknown nullFlavo Kristofer Ocampo 82434 6cb-3 Memoria 14:18:00 14:18:00 r Family 695-48a1-8 l Medicine, 0o1-193c9h [facility] 4375dd 2013-12-20 2013-12-20 Unknown nullFlavo Kristofer Ocampo 176cc df9-a Memoria 14:18:00 14:18:00 r Family 5y6-7316-c l Medicine, 028-ccf46f [facility] b6e91f 2013-12-20 2013-12-20 Unknown nullFlavo Kristofer Ocampo 83a51 bb7-e Memoria 13:18:00 13:18:00 r Family ce1-428c-9 l Medicine, y7q-mc503l [facility] ddac27 2013-12-20 2013-12-20 Unknown nullFlavo Kristofer Ocampo 83a51 bb7-e Memoria 13:18:00 13:18:00 r Family ce1-428c-9 l Medicine, i0y-zh305h [facility] ddac27 2013-10-23 2013-10-23 Unknown nullFlavo Kristofer Ocampo 1ba02 295-c Memoria 03:57:00 03:57:00 r Family x46-2315-5 l Medicine, 5ba-51d13e [facility] e5577o 2013-10-23 2013-10-23 Unknown nullFlavo Kristofer Ocampo 9da3c 4f0-0 Memoria 03:57:00 03:57:00 r Family 4af-4b49-a l Medicine, ca2-445c55 [facility] 7bb3ba 2013-10-23 2013-10-23 Unknown nullFlavo Tibbie Terrence 1ba02 295-c Memoria 03:57:00 03:57:00 r Family t47-6002-2 l Medicine, 5ba-51d13e [facility] x2625q 2013-10-23 2013-10-23 Unknown nullFlavo Tibbie Terrence 9da3c 4f0-0 Memoria 03:57:00 03:57:00 r Family 4af-4b49-a l Medicine, ca2-445c55 [facility] 7bb3ba 2013-10-23 2013-10-23 Unknown nullFlavo [facility] 951f6 7a1-2 Memoria 02:57:00 02:57:00 r Family bc3-4981-a l Medicine, 201-130a04 [facility] q7668m 2013-10-23 2013-10-23 Unknown nullFlavo [facility] 951f6 7a1-2 Memoria 02:57:00 02:57:00 r Family bc3-4981-a l Medicine, 201-130a04 [facility] r8078s 2013-10-13 2013-10-13 WATER PILL nullFlavo [facility] 53 673u74-9 Memoria 20:46:00 20:46:00 CHANGE TO r Family 54a-419d-b l [facility] Medicine, m71-m7d852 [facility] 38824e 2013-10-13 2013-10-13 WATER PILL nullFlavo [facility] 97 76223t-j Memoria 20:46:00 20:46:00 CHANGE TO r Family 757-454c-8 l LAS[facility] Medicine, bdb-3e4a5a [facility] f7c65f 2013-10-13 2013-10-13 WATER PILL nullFlavo [facility] 53 333x74-2 Memoria 20:46:00 20:46:00 CHANGE TO r Family 54a-419d-b l LAS[facility] Medicine, e82-m5e132 [facility] 54387o 2013-10-13 2013-10-13 WATER PILL nullFlavo [facility] 97 96603m-h Memoria 20:46:00 20:46:00 CHANGE TO r Family 757-454c-8 l LASIX Medicine, bdb-3e4a5a [facility] f7c65f 2013-10-13 2013-10-13 WATER PILL nullFlavo [facility] f0 2njlk4-9 Memoria 19:46:00 19:46:00 CHANGE TO r Family 081-453e-9 l [facility] Medicine, 8g4-88095r [facility] e5bcfd 2013-10-13 2013-10-13 WATER PILL nullFlavo [facility] f0 8otwn6-7 Memoria 19:46:00 19:46:00 CHANGE TO r Family 081-453e-9 l [facility] Medicine, 2w6-55745a [facility] e5bcfd 2013-10-12 2013-10-12 NEXIUM nullFlavo [facility] 7786f 048-3 Memoria 22:04:00 22:04:00 REFILL r Family y65-5z2y-l l Medicine, 24a-240254 [facility] maa847 2013-10-12 2013-10-12 NEXIUM nullFl[facility] 4fa20 6d6-a Memoria 22:04:00 22:04:00 REFILL r Family s07-563c-4 l Medicine, 7eb-22s558 [facility] dfca53 2013-10-12 2013-10-12 NEXIUM nullFlavo [facility] 7786f 048-3 Memoria 22:04:00 22:04:00 REFILL r Family i91-1v7a-z l Medicine, 24a-747322 [facility] ray171 2013-10-12 2013-10-12 NEXIUM [facility]Fl[facility] 4fa20 6d6-a Memoria 22:04:00 22:04:00 REFILL r Family z94-092l-3 l Medicine, 7eb-39c522 [facility] dfca53 2013-10-12 2013-10-12 NEXIUM [facility] 006a7 6e0-9 Memoria 21:04:00 21:04:00 REFILL r Family 69c-41ed-b l Medicine, 708-3cb6f1 [facility] 627f75 2013-10-12 2013-10-12 NEXIUM [facility]Fl[facility] 006a7 6e0-9 Memoria 21:04:00 21:04:00 REFILL r Family 69c-41ed-b l Medicine, 708-3cb6f1 [facility] 627f75 2013-10-09 2013-10-09 Refill nullFlavo [facility] 73e4a 343-d Memoria 17:36:00 17:36:00 r Family 188-46f8-b l Medicine, 61b-db24ea [facility] d7ea3b 2013-10-09 2013-10-09 Refill nullFlavo [facility] 89a39 9b3-2 Memoria 17:36:00 17:36:00 r Family 2s8-2j5t-h l Medicine, 83e-5k698f [facility] s0m497 2013-10-09 2013-10-09 Refill nullFlavo [facility] 73e4a 343-d Memoria 17:36:00 17:36:00 r Family 188-46f8-b l Medicine, 61b-db24ea [facility] d7ea3b 2013-10-09 2013-10-09 Refill nullFlavo [facility] 89a39 9b3-2 Memoria 17:36:00 17:36:00 r Family 5t0-2n8z-d l Medicine, 83e-7k403j [facility] u3q476 2013-10-09 2013-10-09 Refill nullFlavo [facility] 160ee 795-1 Memoria 16:36:00 16:36:00 r Family 214-4d4b-8 l Medicine, 5df-be09fb [facility] 0a85be 2013-10-09 2013-10-09 Refill nullFlavo [facility] 160ee 795-1 Memoria 16:36:00 16:36:00 r Family 214-4d4b-8 l Medicine, 5df-be09fb [facility] 0a85be 2013-10-06 2013-10-06 Refill nullFlavo Kristofer Ocampo 5b5f5 f0d-3 Memoria 20:56:00 20:56:00 r Family n39-1ttk-1 l Medicine, dcc-4c5e00 [facility] 394cbf 2013-10-06 2013-10-06 Refill nullFlavo Kristofer Ocampo e203e b8e-7 Memoria 20:56:00 20:56:00 r Family d29-2769-8 l Medicine, i4m-709x78 [facility] 3u913o 2013-10-06 2013-10-06 Refill nullFlavo Kristofer Ocampo 5b5f5 f0d-3 Memoria 20:56:00 20:56:00 r Family n47-1npi-2 l Medicine, dcc-4c5e00 [facility] 394cbf 2013-10-06 2013-10-06 Refill nullFlavo Kristofer Ocampo e203e b8e-7 Memoria 20:56:00 20:56:00 r Family l29-1206-2 l Medicine, g5v-819d92 [facility] 0y647y 2013-10-06 2013-10-06 Refill nullFlavo Kristofer Ocampo ef1e3 c76-f Memoria 19:56:00 19:56:00 r Family l9t-8h38-6 l Medicine, 68c-3d18c5 [facility] 77i813 2013-10-06 2013-10-06 Refill nullFlavo Kristofer Ocampo ef1e3 c76-f Memoria 19:56:00 19:56:00 r Family q6a-6i33-0 l Medicine, 68c-3d18c5 [facility] 38n773 2013-10-03 2013-10-03 MEDICAL nullFlavo Kristofer Ocampo bf977 b56-d Memoria 17:22:00 17:22:00 QUESTION r Family 939-46c9-8 l Medicine, z78-95o9xn [facility] 1y368s 2013-10-03 2013-10-03 MEDICAL nullFlavo Kristofer Ocampo b4a40 108-3 Memoria 17:22:00 17:22:00 QUESTION r Family 86b-4a7a-8 l Medicine, 338-15bbc9 [facility] 810813 9256-07-29 2013-10-03 MEDICAL nullFlavo [facility] bf977 b56-d Memoria 17:22:00 17:22:00 QUESTION r 939-46c9-8 l Medicine, v73-85z2wz [facility] 1i407g 2013-10-03 2013-10-03 MEDICAL nullFlavo [facility] b4a40 108-3 Memoria 17:22:00 17:22:00 QUESTION r Family 86b-4a7a-8 l Medicine, 338-15bbc9 [facility] 208151 3288-07-29 2013-10-03 MEDICAL [facility] 796-7 Memoria 16:22:00 16:22:00 QUESTION r Family ed1-4e24-a l Medicine, 7ba-ad8d4c [facility] 311251 9067-07-29 2013-10-03 MEDICAL nullFlavo [facility] de0cb 796-7 Memoria 16:22:00 16:22:00 QUESTION r ed1-4e24-a l Medicine, 7ba-ad8d4c [facility] 635401 4883-07-22 2013-09-26 FOOT nullFlavo [facility] e403a a27-4 Memoria 19:30:00 19:30:00 r Family c24-2160-k l Medicine, c89-m635g9 [facility] bf7cdb 2013-09-26 2013-09-26 FOOT nullFlavo [facility] 20175 7d5-9 Memoria 19:30:00 19:30:00 r Family 09e-45dc-a l Medicine, ca2-66a5c7 [facility] c2de38 2013-09-26 2013-09-26 FOOT nullFlavo [facility] e403a a27-4 Memoria 19:30:00 19:30:00 r Family m44-4955-q l Medicine, a58-a019e2 [facility] bf7cdb 2013-09-26 2013-09-26 FOOT nullFlavo [facility] 60776 7d5-9 Memoria 19:30:00 19:30:00 r Family 09e-45dc-a l Medicine, ca2-66a5c7 [facility] c2de38 2013-09-26 2013-09-26 FOOT nullFlavo [facility] afdfb d2c-7 Memoria 18:30:00 18:30:00 r Family i07-2h16-2 l Medicine, 124-24xv80 [facility] o1q038 2013-09-26 2013-09-26 FOOT nullFlavo [facility] af[facility] d2c-7 [facility] 18:30:00 18:30:00 r Family [id number] l Medicine, [id number] [facility] [id number] 2013-09-22 2013-09-23 Outpt Diag nullFlavo [facility] [id number] Mem[facility] 18:05:00 04:59:00 Services r Outpatient 11 l Imaging [facility] 2013-09-22 2013-09-23 Outpt Diag nullFlavo [facility] [id number] [facility] 18:05:00 04:59:00 Services r Outpatient 11 l Imaging [facility] 2013-09-22 2013-09-22 Outpatient Oscar, [id number]. [id number] 13:05:00 23:59:00 Sami [id number] José [id number] 2013-09-07 Outpt Diag nullFlavo [facility] [id number] Memoria 22:02:00 04:59:00 Services r Outpatient 10 l Imaging [facility] 2013-09-06 2013-09-07 Outpt Diag nullFlavo [facility] [id number] [facility] 22:02:00 04:59:00 Services r Outpatient 10 l Imaging [facility] 2013-09-06 2013-09-06 Outpatient Thuy, [id number]. 2.16.840. [id number]. [id number] 17:02:00 23:59:00 Gladis Kumar [id number] 01 Results Test Description Test Time Test Comments Results Result Comments Source [facility] 2021-12-11 15:08:00 Test Item Value Reference Range Interpretation Comme nts Iron (test code = Iron) 63 45-160 [facility]2022-10-06 15:08:00 Test Item Value Reference Range Interpretation Comments TIBC (test code = TIBC) 404 250-450 [facility]2022-10-06 15:08:00 Test Item Value Reference Range Interpretation Comments % Satur Fe (test code = % Satur Fe) 16 16-45 [facility]2022-10-06 15:08:00 Test Item Value Reference Range Interpretation Comments Ferritin Lvl (test code = Ferritin Lvl) 10 16- [facility]2022-10-06 15:08:00 Test Item Value Reference Range Interpretation Comments Magnesium Lvl (test code = Magnesium 2.3 1.5-2.5 Lvl) [facility]2022-10-06 15:08:00 Test Item Value Reference Range Interpretation Comments Iron (test code = Iron) 63 45-160 [facility]2022-10-06 15:08:00 Test Item Value Reference Range Interpretation Comments TIBC (test code = TIBC) 404 250-450 [facility]2022-10-06 15:08:00 Test Item Value Reference Range Interpretation Comments % Satur Fe (test code = % Satur Fe) 16 16-45 [facility]2022-10-06 15:08:00 Test Item Value Reference Range Interpretation Comments Ferritin Lvl (test code = Ferritin Lvl) 10 [facility]2022-10-06 15:08:00 Test Item Value Reference Range Interpretation Comments Magnesium Lvl (test code = Magnesium 2.3 1.5-2.5 Lvl) [facility]2022-10-06 15:08:00 Test Item Value Reference Range Interpretation Comments Iron (test code = Iron) 63 45-160 [facility]2022-10-06 15:08:00 Test Item Value Reference Range Interpretation Comments TIBC (test code = TIBC) 404 250-450 [facility]2022-10-06 15:08:00 Test Item Value Reference Range Interpretation Comments % Satur Fe (test code = % Satur Fe) 16 16-45 [facility]2022-10-06 15:08:00 Test Item Value Reference Range Interpretation Comments Ferritin Lvl (test code = Ferritin Lvl) 10 [facility]2022-10-06 15:08:00 Test Item Value Reference Range Interpretation Comments Magnesium Lvl (test code = Magnesium 2.3 1.5-2.5 Lvl) [facility]2022-10-06 15:08:00 Test Item Value Reference Range Interpretation Comments Iron (test code = Iron) 63 45-160 [facility]2022-10-06 15:08:00 Test Item Value Reference Range Interpretation Comments TIBC (test code = TIBC) 404 250-450 [facility]2022-10-06 15:08:00 Test Item Value Reference Range Interpretation Comments % Satur Fe (test code = % Satur Fe) 16 16-45 [facility]2022-10-06 15:08:00 Test Item Value Reference Range Interpretation Comments Ferritin Lvl (test code = Ferritin Lvl) 10 [facility]2022-10-06 15:08:00 Test Item Value Reference Range Interpretation Comments Magnesium Lvl (test code = Magnesium 2.3 1.5-2.5 Lvl) [facility]2022-10-06 15:08:00 Test Item Value Reference Range Interpretation Comments Iron (test code = Iron) 63 45-160 [facility]2022-10-06 15:08:00 Test Item Value Reference Range Interpretation Comments TIBC (test code = TIBC) 404 250-450 [facility]2022-10-06 15:08:00 Test Item Value Reference Range Interpretation Comments % Satur Fe (test code = % Satur Fe) 16 16-45 [facility]2022-10-06 15:08:00 Test Item Value Reference Range Interpretation Comments Ferritin Lvl (test code = Ferritin Lvl) 10 [facility]2022-10-06 15:08:00 Test Item Value Reference Range Interpretation Comments Magnesium Lvl (test code = Magnesium 2.3 1.5-2.5 Lvl) [facility]2022-10-06 15:08:00 Test Item Value Reference Range Interpretation Comments Iron (test code = Iron) 63 45-160 [facility]2022-10-06 15:08:00 Test Item Value Reference Range Interpretation Comments TIBC (test code = TIBC) 404 250-450 [facility]2022-10-06 15:08:00 Test Item Value Reference Range Interpretation Comments % Satur Fe (test code = % Satur Fe) 16 1645 [facility]2022-10-06 15:08:00 Test Item Value Reference Range Interpretation Comments Ferritin Lvl (test code = Ferritin Lvl) 10 16 [facility]2022-10-06 15:08:00 Test Item Value Reference Range Interpretation Comments Magnesium Lvl (test code = Magnesium 2.3 1.5-2.5 Lvl) [facility]2022-10-06 15:08:00 Test Item Value Reference Range Interpretation Comments Iron (test code = Iron) 63 45-160 [facility]2022-10-06 15:08:00 Test Item Value Reference Range Interpretation Comments TIBC (test code = TIBC) 404 359-905 [facility]2022-10-06 15:08:00 Test Item Value Reference Range Interpretation Comments % Satur Fe (test code = % Satur Fe) 16 [facility]2022-10-06 15:08:00 Test Item Value Reference Range Interpretation Comments Ferritin Lvl (test code = Ferritin Lvl) 10 [facility]2022-10-06 15:08:00 Test Item Value Reference Range Interpretation Comments Magnesium Lvl (test code = Magnesium 2.3 1.5-2.5 Lvl) [facility] [id number] 13:07:00 Test Item Value Reference Range Interpretation Comments Glucose, Serum (test 109 mg/dL 65-99 H code = 7837292) BUN (test code = 24 mg/dL 8-20100709) Creatinine, Serum 0.76 mg/dL 0.57-1.00 (test code = 7510801) EGFR (test code = 87 mL/min/1.73 >59 7457001220) BUN/Creatinine Ratio 32 12-28 H (test code = 1280345) Sodium, Serum (test 143 mmol/L 134-144 code = 8384365) Potassium, Serum 4.6 mmol/L 3.5-5.2 (test code = 3270954) Chloride, Serum (test 104 mmol/L 96-106 code = 4093993) Carbon Dioxide, Total 22 mmol/L 20-29 (test code = ) Calcium, Serum (test 9.6 mg/dL 8.7-10.3 code = 1509388) Protein, Total, Serum 7.4 g/dL 6.0-8.5 (test code = 20100713) Albumin, Serum (test 5.0 g/dL 3.8-4.8 H code = 5433198) Globulin, Total (test 2.4 g/dL 1.5-4.5 code = 7761981) A/G Ratio (test code 2.1 1.2-2.2 = 5393255) Bilirubin, Total 0.3 mg/dL 0.0-1.2 (test code [...] RUI (test code = RUI) Performed at: [address] [place] [address] [id number] Director: Alberto Morrissey MD, Phone: [phone] Lab Interpretation Abnormal (test code = 14306-9) [facility] [id number] 13:07:00 Test Item Value Reference Range Interpretation Comments Cholesterol, Total (test 240 mg/dL 100-199 H code = 2093-3) Triglycerides (test code 67 mg/dL 0-149 = 2571-8) HDL Cholesterol (test 116 mg/dL >39 code = 2085-9) VLDL Cholesterol Chanell 11 mg/dL 5-40 (test code = 82126-4) LDL Calculated (test code 113 mg/dL 0-99 H = 18612-4) RUI (test code = RUI) Performed at: - [facility] [id number] Director: Alberto Morrissey MD, Phone: [phone] Lab Interpretation (test Abnormal code = 27036-2) [facility] [id number] 13:07:00 Test Item Value Reference Range Interpretation Comments Hemoglobin A1c 5.5 % 4.8-5.6 Prediabetes: (test code = 5.7 - 6.4 4548-4) Diabetes: >6.4 Glycemic contro l for adults with diabetes: <7.0 RUI (test code = Performed at: - RUI) [facility] [id number] Director: Alberto Morrissey MD, Phone: [phone] [facility] [id number] 13:07:00 Test Item Value Reference Interpretation Comments Range Urine Final report A Culture,Comprehensiv e (test code = 4581213) Result 1 (test code Comment A Escheric hia coli, = 0852789) identified by a n automated biochemical system.10,000-2 5,000 colony forming units per mL Antimicrobial Comment S = Suscep tible; Susceptibility (test I = Int ermediate; R code = 3422477) = Resistant P = Positive; N = Negative MICS a re expressed in micrograms per mL Antibiotic RSLT #1 RSLT#2 RSLT#3 RSLT#4Amoxicill in/Cl avulanic Acid IAmpicillin RCefepime SCeftriaxone SCefuroxime SCiprofloxacin SErtapenem SGentamicin RImipenem SLevofloxacin SMeropenem SNitrofurantoin SPiperacillin/T azoba ctam STetracycl ine STobramycin STrimethoprim/S ulfa R RUI (test code = Performed at: RUI) - [facility] [id number] Director: Alberot Morrissey MD, Phone: [phone] Lab Interpretation Abnormal (test code = 59660-2) [facility] + automated [id number] 13:07:00 Test Item Value Reference Range Interpretation Comments WBC (test code = 5.4 See_Comment [Automated ) message] The system which generated this result transmit lola reference range : 3.4 - 10.8 x10E3/uL. The reference range was not used to interpret this result as normal/abnormal . RBC (test code = 4.11 See_Comment [Automated 789-8) message] The system which generated this result [...] (test code = Performed at: RUI) [facility] [address] [id number] Director: Alberto Morrissey MD, Phone: [phone] [facility] [id number] 13:07:00 Test Item Value Reference Range Interpretation [...] the ruthann gnosis of acute HCV infection. [facility] orp offers Hepatiti s C Virus (HCV) RNA , Diagnosis, TRIPP (528769) and Hepatitis C Vir us (HCV) Antibody with reflex to Quantitative Real-time PCR (455111). [Auto mated message] The sy stem which generated this result transmit lola reference range : 0.0 - 0.9 s/co rati o. The reference range was not used to int erpret this result as normal/abnormal . RUI (test code Performed at: 01 - = RUI) [facility] [address] [place], [place] [id number] Director: Alberto Morrissey MD, Phone: [phone] [facility] [id number] 13:07:00 Test Item Value Reference Range Interpretation Comments Glucose, Serum (test 109 mg/dL 65-99 H code = 1679110) BUN (test code = 24 mg/dL 8-27 20100709) Creatinine, Serum 0.76 mg/dL 0.57-1.00 (test code = 20100801) EGFR (test code = 87 mL/min/1.73 >59 4877925910) BUN/Creatinine Ratio 32 12-28 H (test code = 5383073) Sodium, Serum (test 143 mmol/L 134-144 code = 2964381) Potassium, Serum 4.6 mmol/L 3.5-5.2 (test code [...] Total (test 2.4 g/dL 1.5-4.5 code = 1753263) A/G Ratio (test code 2.1 1.2-2.2 = 9352913) Bilirubin, Total 0.3 mg/dL 0.0-1.2 (test code [...] RUI (test code = RUI) Performed at: [facility] [id number] Director: Alberto Morrissey MD, Phone: [phone] Lab Interpretation Abnormal (test code = 57059-5) [facility] [id number] 13:07:00 Test Item Value Reference Range Interpretation Comments Cholesterol, Total (test 240 mg/dL 100-199 H code = 2093-3) Triglycerides (test code 67 mg/dL 0-149 = 2571-8) HDL Cholesterol (test 116 mg/dL >39 code = 2085-9) VLDL Cholesterol Chanell 11 mg/dL 5-40 (test code = 57202-4) LDL Calculated (test code 113 mg/dL 0-99 H = 32822-2) RUI (test code = RUI) Performed at: [address] [place] [address] [id number] Director: Alberto Morrissey MD, Phone: [phone] Lab Interpretation (test Abnormal code = 27155-8) [facility] Center[facility] [id number] 13:07:00 Test Item Value Reference Range Interpretation Comments Hemoglobin A1c 5.5 % 4.8-5.6 Prediabetes: (test code = 5.7 - 6.4 4548-4) Diabetes: >6.4 Glycemic contro l for adults with diabetes: <7.0 RUI (test code = Performed at: RUI) [facility] [id number] Director: Alberto Morrissey MD, Phone: [phone] [facility] Center[facility] [id number] 13:07:00 Test Item Value Reference Interpretation Comments Range Urine Final report A Culture,Comprehensiv e (test code = 1541169) Result 1 (test code Comment A Escheric hia coli, = 9592778) identified by a n automated biochemical system.10,000-2 5,000 colony forming units per mL Antimicrobial Comment S = Suscep tible; Susceptibility (test I = Int ermediate; R code = 0598365) = Resistant P = Positive; N = Negative MICS a re expressed in micrograms per mL Antibiotic RSLT #1 RSLT#2 RSLT#3 RSLT#4Amoxicill in/Cl avulanic Acid IAmpicillin RCefepime SCeftriaxone SCefuroxime SCiprofloxacin SErtapenem SGentamicin RImipenem SLevofloxacin SMeropenem SNitrofurantoin SPiperacillin/T azoba ctam STetracycl ine STobramycin STrimethoprim/S ulfa R RUI (test code = Performed at: 01 RUI) - [facility] [address] [place] [address] [id number] Director: Alberto Morrissey MD, Phone: [phone] Lab Interpretation Abnormal (test code = 78120-7) [facility] with platelet count + automated [id number] 13:07:00 Test Item Value Reference Range Interpretation Comments WBC (test code = 5.4 See_Comment [Automated ) message] The system which generated this result transmit lola reference range : 3.4 - 10.8 x10E3/uL. The reference range was not used to interpret this result as normal/abnormal . RBC (test code = 4.11 See_Comment [Automated 142-0) message] The system which generated this result [...] RUI (test code = Performed at: ) [facility] [address] [id number] Director: Alberto Morrissey MD, Phone: [phone] [facility] C [id number] 13:07:00 Test Item Value Reference Range Interpretation [...] the ruthann gnosis of acute HCV infection. [facility] or[facility] offers Hepatiti s C Virus (HCV) RNA , Diagnosis, TRIPP (061813) and Hepatitis C Vir us (HCV) Antibody with reflex to Quantitative Real-time PCR (856838). [Auto mated message] The sy stem which generated this result transmit lola reference range : 0.0 - 0.9 s/co rati o. The reference range was not used to int erpret this result as normal/abnormal . RUI (test code Performed at: - = ) [facility] [address] [id number] Director: Alberto Morrissey MD, Phone: [phone] [facility] [id number] 13:07:00 Test Item Value Reference Range Interpretation Comments Glucose, Serum (test 109 mg/dL 65-99 H code = 0592310) BUN (test code = 24 mg/dL 8-27 20100709) Creatinine, Serum 0.76 mg/dL 0.57-1.00 (test code = 1766674) EGFR (test code = 87 mL/min/1.73 >=59 6857194815) BUN/Creatinine Ratio 32 12-28 H (test code = 8013822) Sodium, Serum (test 143 mmol/L 134-144 code = 2489391) Potassium, Serum 4.6 mmol/L 3.5-5.2 (test code = 7396785) Chloride, Serum (test 104 mmol/L 96-106 code = 20100726) Carbon Dioxide, Total 22 mmol/L 20-29 (test code = ) Calcium, Serum (test 9.6 mg/dL 8.7-10.3 code = 20100706) Protein, Total, Serum 7.4 g/dL 6.0-8.5 (test code = 20100713) Albumin, Serum (test 5.0 g/dL 3.8-4.8 H code = 7641271) Globulin, Total (test 2.4 g/dL 1.5-4.5 code = 3827918) A/G Ratio (test code 2.1 1.2-2.2 = 6014186) Bilirubin, Total 0.3 mg/dL 0.0-1.2 (test code = 3865305) Alkaline Phosphatase, 128 See_Comment H [Auto mated [...] RUI (test code = RUI) Performed at: [address] [place] [address] [id number] Director: Alberto Morrissey MD, Phone: [phone] Lab Interpretation Abnormal (test code = 91404-8) [facility] [id number] 13:07:00 Test Item Value Reference Range Interpretation Comments Cholesterol, Total (test 240 mg/dL 100-199 H code = 2093-3) Triglycerides (test code 67 mg/dL 0-149 = 2571-8) HDL Cholesterol (test 116 mg/dL >=39 code = 2085-9) VLDL Cholesterol Chanell 11 mg/dL 5-40 (test code = 27689-9) LDL Calculated (test code 113 mg/dL 0-99 H = 79000-0) RUI (test code = RUI) Performed at: - [facility] [id number] Director: Alberto Morrissey MD, Phone: [phone] Lab Interpretation (test Abnormal code = 81268-2) [facility] Center[facility] [id number] 13:07:00 Test Item Value Reference Range Interpretation Comments Hemoglobin A1c 5.5 % 4.8-5.6 Prediabetes: (test code = 5.7 - 6.4 4548-4) Diabetes: >6.4 Glycemic contro l for adults with diabetes: <7.0 RUI (test code = Performed at: - RUI) [facility] [id number] Director: Alberto Morrissey MD, Phone: [phone] [facility] [id number] 13:07:00 Test Item Value Reference Interpretation Comments Range Urine Final report A Culture,Comprehensiv e (test code = 1342854) Result 1 (test code Comment A Escheric hia coli, = 2098568) identified by a n automated biochemical system.10,000-2 5,000 colony forming units per mL Antimicrobial Comment S = Suscep tible; Susceptibility (test I = Int ermediate; R code = 1556820) = Resistant P = Positive; N = Negative MICS are expressed in micrograms per mL Antibiotic RSLT #1 RSLT#2 RSLT#3 RSLT#4Amoxicill in/Cl avulanic Acid IAmpicillin RCefepime SCeftriaxone SCefuroxime SCiprofloxacin SErtapenem SGentamicin RImipenem SLevofloxacin SMeropenem SNitrofurantoin SPiperacillin/T azoba ctam STetracycl ine STobramycin STrimethoprim/S ulfa R RUI (test code = Performed at: RUI) - [facility] [id number] Director: Alberto Morrissey MD, Phone: [phone] Lab Interpretation Abnormal (test code = 52008-9) [facility] + automated [id number] 13:07:00 Test Item Value Reference Range Interpretation Comments WBC (test code = 5.4 See_Comment [Automated ) message] The system which generated this result transmit lola reference range : 3.4 - 10.8 x10E3/uL. The reference range was not used to interpret this result as normal/abnormal . RBC (test code = 4.11 See_Comment [Automated 9-8) message] The system which generated this result [...] (test code = Performed at: RUI) [facility] [address] [place] [address] [id number] Director: Alberto Morrissey MD, Phone: [phone] [facility] CenterHep[facility] C [id number] 13:07:00 Test Item Value Reference Range Interpretation [...] the ruthann gnosis of acute HCV infection. [facility] or[facility] offers Hepatiti s C Virus (HCV) RNA , Diagnosis, TRIPP (486554) and Hepatitis C Vir us (HCV) Antibody with reflex to Quantitative Real-time PCR (851627). [Auto mated message] The sy stem which generated this result transmit lola reference range : 0.0 - 0.9 s/co rati o. The reference range was not used to int erpret this result as normal/abnormal . RUI (test code Performed at: 01 - = RUI) [facility]pthkie[address] [place], [place] [id number] Director: Alberto Morrissey MD, Phone: [phone] [facility]Com[facility] metabolic [id number] 13:07:00 Test Item Value Reference Range Interpretation Comments Glucose, Serum (test 109 mg/dL 65-99 H code = 20100708) BUN (test code = 24 mg/dL 8-27 20100709) Creatinine, Serum 0.76 mg/dL 0.57-1.00 (test code = 20100801) EGFR (test code = 87 mL/min/1.73 >=59 3297357394) BUN/Creatinine Ratio 32 12-28 H (test code = 1483120) Sodium, Serum (test 143 mmol/L 134-144 code = 0232792) Potassium, Serum 4.6 mmol/L 3.5-5.2 (test code = 20100724) Chloride, Serum (test 104 mmol/L 96-106 code = 1976877) Carbon Dioxide, Total 22 mmol/L 20-29 (test code = 5161634) Calcium, Serum (test 9.6 mg/dL 8.7-10.3 code = 20100706) Protein, Total, Serum 7.4 g/dL 6.0-8.5 (test code = 20100713) Albumin, Serum (test 5.0 g/dL 3.8-4.8 H code = 20100714) Globulin, Total (test 2.4 g/dL 1.5-4.5 code = 6447030) A/G Ratio (test code 2.1 1.2-2.2 = 8270566) Bilirubin, Total 0.3 mg/dL 0.0-1.2 (test code = 20100715) Alkaline Phosphatase, 128 See_Comment H [Auto mated S (test code = message] The 68-6) system which generated this result transmitted reference [...] RUI (test code = RUI) Performed at: [facility] [id number] Director: Alberto Morrissey MD, Phone: [phone] Lab Interpretation Abnormal (test code = 20153-0) [facility] [id number] 13:07:00 Test Item Value Reference Range Interpretation Comments Cholesterol, Total (test 240 mg/dL 100-199 H code = 2093-3) Triglycerides (test code 67 mg/dL 0-149 = 2571-8) HDL Cholesterol (test 116 mg/dL >=39 code = 2085-9) VLDL Cholesterol Chanell 11 mg/dL 5-40 (test code = 72395-5) LDL Calculated (test code 113 mg/dL 0-99 H = 51980-9) RUI (test code = RUI) Performed at: [facility] [id number] Director: Alberto Morrissey MD, Phone: [phone] Lab Interpretation (test Abnormal code = 17116-9) [facility] Center[facility] [id number] 13:07:00 Test Item Value Reference Range Interpretation Comments Hemoglobin A1c 5.5 % 4.8-5.6 Prediabetes: (test code = 5.7 - 6.4 4548-4) Diabetes: >6.4 Glycemic contro l for adults with diabetes: <7.0 RUI (test code = Performed at: RUI) [facility] [id number] Director: Alberto Morrissey MD, Phone: [phone] [facility] Center[facility] [id number] 13:07:00 Test Item Value Reference Interpretation Comments Range Urine Final report A Culture,Comprehensiv e (test code = 9318152) Result 1 (test code Comment A Escheric hia coli, = 9469578) identified by a n automated biochemical system.10,000-2 5,000 colony forming units per mL Antimicrobial Comment S = Suscep tible; Susceptibility (test I = Int ermediate; R code = 7746179) = Resistant P = Positive; N = Negative MICS a re expressed in micrograms per mL Antibiotic RSLT #1 RSLT#2 RSLT#3 RSLT#4Amoxicill in/Cl avulanic Acid IAmpicillin RCefepime SCeftriaxone SCefuroxime SCiprofloxacin SErtapenem SGentamicin RImipenem SLevofloxacin SMeropenem SNitrofurantoin SPiperacillin/T azoba ctam STetracycl ine STobramycin STrimethoprim/S ulfa R RUI (test code = Performed at: 01 RUI) - [facility] [address] [place], [place] [id number] Director: Alberto Morrissey MD, Phone: [phone] Lab Interpretation Abnormal (test code = 33072-6) [facility] with platelet count + automated [id number] 13:07:00 Test Item Value Reference Range Interpretation Comments WBC (test code = 5.4 See_Comment [Automated ) message] The system which generated this result transmit lola reference range : 3.4 - 10.8 x10E3/uL. The reference range was not used to interpret this result as normal/abnormal . RBC (test code = 4.11 See_Comment [Automated 587-3) message] The system which generated this result [...] . RUI (test code = Performed at: 01 - RUI) [facility] [address] [place], [place] [id number] Director: Alberto Morrissey MD, Phone: [phone] [facility] [id number] 13:07:00 Test Item Value Reference Range Interpretation [...] the ruthann gnosis of acute HCV infection. [facility] offers Hepatiti s C Virus (HCV) RNA , Diagnosis, TRIPP (873531) and Hepatitis C Vir us (HCV) Antibody with reflex to Quantitative Real-time PCR (961248). [Auto mated message] The sy stem which generated this result transmit lola reference range : 0.0 - 0.9 s/co rati o. The reference range was not used to int erpret this result as normal/abnormal . RUI (test code Performed at: - = RUI) [facility] [address] [id number] Director: Alberto Morrissey MD, Phone: [phone] [facility] [id number] 13:07:00 Test Item Value Reference Range Interpretation Comments Glucose, Serum (test 109 mg/dL 65-99 H code = 8422720) BUN (test code = 24 mg/dL 8-27 20100709) Creatinine, Serum 0.76 mg/dL 0.57-1.00 (test code = 1548829) EGFR (test code = 87 mL/min/1.73 >=59 1385359700) BUN/Creatinine Ratio 32 12-28 H (test code = 2616936) Sodium, Serum (test 143 mmol/L 134-144 code = 1728028) Potassium, Serum 4.6 mmol/L 3.5-5.2 (test code = 8322736) Chloride, Serum (test 104 mmol/L 96-106 code = 1169996) Carbon Dioxide, Total 22 mmol/L 20-29 (test code = 6336423) Calcium, Serum (test 9.6 mg/dL 8.7-10.3 code = 0809475) Protein, Total, Serum 7.4 g/dL 6.0-8.5 (test code = 20100713) Albumin, Serum (test 5.0 g/dL 3.8-4.8 H code = 1202560) Globulin, Total (test 2.4 g/dL 1.5-4.5 code = 2914503) A/G Ratio (test code 2.1 1.2-2.2 = 7656247) Bilirubin, Total 0.3 mg/dL 0.0-1.2 (test code = 0057519) Alkaline Phosphatase, 128 See_Comment H [Auto mated S (test code = message] The 68-6) system which generated this result transmitted reference [...] RUI (test code = RUI) Performed at: [address] [place] [address] [id number] Director: Alberto Morrissey MD, Phone: [phone] Lab Interpretation Abnormal (test code = 52580-4) [facility] [id number] 13:07:00 Test Item Value Reference Range Interpretation Comments Cholesterol, Total (test 240 mg/dL 100-199 H code = 2093-3) Triglycerides (test code 67 mg/dL 0-149 = 2571-8) HDL Cholesterol (test 116 mg/dL >=39 code = 2085-9) VLDL Cholesterol Chanell 11 mg/dL 5-40 (test code = 81397-6) LDL Calculated (test code 113 mg/dL 0-99 H = 37054-2) RUI (test code = URI) Performed at: - [facility] [id number] Director: Alberto Morrissey MD, Phone: [phone] Lab Interpretation (test Abnormal code = 40970-9) [facility] Center[facility] [id number] 13:07:00 Test Item Value Reference Range Interpretation Comments Hemoglobin A1c 5.5 % 4.8-5.6 Prediabetes: (test code = 5.7 - 6.4 4548-4) Diabetes: >6.4 Glycemic contro l for adults with diabetes: <7.0 RUI (test code = Performed at: - RUI) [facility] [id number] Director: Alberto Morrissey MD, Phone: [phone] [facility] Center[facility] [id number] 13:07:00 Test Item Value Reference Interpretation Comments Range Urine Final report A Culture,Comprehensiv e (test code = 4637794) Result 1 (test code Comment A Escheric hia coli, = 8428921) identified by a n automated biochemical system.10,000-2 5,000 colony forming units per mL Antimicrobial Comment S = Suscep tible; Susceptibility (test I = Int ermediate; R code = 8394135) = Resistant P = Positive; N = Negative MICS a re expressed in micrograms per mL Antibiotic RSLT #1 RSLT#2 RSLT#3 RSLT#4Amoxicill in/Cl avulanic Acid IAmpicillin RCefepime SCeftriaxone SCefuroxime SCiprofloxacin SErtapenem SGentamicin RImipenem SLevofloxacin SMeropenem SNitrofurantoin SPiperacillin/T azoba ctam STetracycl ine STobramycin STrimethoprim/S ulfa R RUI (test code = Performed at: RUI) - [facility] [id number] Director: Alberto Morrissey MD, Phone: [phone] Lab Interpretation Abnormal (test code = 62319-9) [facility] with [facility] count + automated [id number] 13:07:00 Test Item Value Reference Range Interpretation Comments WBC (test code = 5.4 See_Comment [Automated ) message] The system which generated this result transmit lola reference range : 3.4 - 10.8 x10E3/uL. The reference range was not used to interpret this result as normal/abnormal . RBC (test code = 4.11 See_Comment [Automated 9-8) message] The system which generated this result [...] RUI (test code = Performed at: ) [facility] [address] [id number] Director: Alberto Morrissey MD, Phone: [phone] [facility] CenterHepatitis C [id number] 13:07:00 Test Item Value Reference Range Interpretation [...] the ruthann gnosis of acute HCV infection. [facility] offers Hepatiti s C Virus (HCV) RNA , Diagnosis, TRIPP (953466) and Hepatitis C Vir us (HCV) Antibody with reflex to Quantitative Real-time PCR (674574). [Auto mated message] The sy stem which generated this result transmit lola reference range : 0.0 - 0.9 s/co rati o. The reference range was not used to int erpret this result as normal/abnormal . RUI (test code Performed at: 01 - = RUI) [facility] [address] [place], [place] [id number] Director: Alberto Morrissey MD, Phone: [phone] [facility]Com[facility] [id number] 13:07:00 Test Item Value Reference Range Interpretation Comments Glucose, Serum (test 109 mg/dL 65-99 H code = 20100708) BUN (test code = 24 mg/dL 8-27 20100709) Creatinine, Serum 0.76 mg/dL 0.57-1.00 (test code = 20100801) EGFR (test code = 87 mL/min/1.73 >=59 3303625036) BUN/Creatinine Ratio 32 12-28 H (test code = 2361105) Sodium, Serum (test 143 mmol/L 134-144 code [...] Total (test 2.4 g/dL 1.5-4.5 code = 7088928) A/G Ratio (test code 2.1 1.2-2.2 = 0054840) Bilirubin, Total 0.3 mg/dL 0.0-1.2 (test code = 20100715) Alkaline Phosphatase, 128 See_Comment H [Auto mated S (test code = message] The 68-6) system which generated this result transmitted reference [...] RUI (test code = RUI) Performed at: [facility] [id number] Director: Alberto Morrissey MD, Phone: [phone] Lab Interpretation Abnormal (test code = 75872-3) [facility] [id number] 13:07:00 Test Item Value Reference Range Interpretation Comments Cholesterol, Total (test 240 mg/dL 100-199 H code = 2093-3) Triglycerides (test code 67 mg/dL 0-149 = 2571-8) HDL Cholesterol (test 116 mg/dL >=39 code = 2085-9) VLDL Cholesterol Chanell 11 mg/dL 5-40 (test code = 75001-6) LDL Calculated (test code 113 mg/dL 0-99 H = 85526-2) RUI (test code = RUI) Performed at: [facility] [id number] Director: Alberto Morrissey MD, Phone: [phone] Lab Interpretation (test Abnormal code = 95765-5) [facility] CenterHemoglobin [id number] 13:07:00 Test Item Value Reference Range Interpretation Comments Hemoglobin A1c 5.5 % 4.8-5.6 Prediabetes: (test code = 5.7 - 6.4 4548-4) Diabetes: >6.4 Glycemic contro l for adults with diabetes: <7.0 RUI (test code = Performed at: RUI) [facility] [address] [id number] Director: Alberto Morrissey MD, Phone: [phone] [facility] CenterUrine [id number] 13:07:00 Test Item Value Reference Interpretation Comments Range Urine Final report A Culture,Comprehensiv e (test code = 3372836) Result 1 (test code Comment A Escheric hia coli, = 3946873) identified by a n automated biochemical system.10,000-2 5,000 colony forming units per mL Antimicrobial Comment S = Suscep tible; Susceptibility (test I = Int ermediate; R code = 9511884) = Resistant P = Positive; N = Negative MICS a re expressed in micrograms per mL Antibiotic RSL T#1 RSLT#2 RSLT#3 RSLT#4Amoxicill in/Cl avulanic Acid IAmpicillin RCefepime SCeftriaxone SCefuroxime SCiprofloxacin SErtapenem SGentamicin RImipenem SLevofloxacin SMeropenem SNitrofurantoin SPiperacillin/T azoba ctam STetracycl ine STobramycin STrimethoprim/S ulfa R RUI (test code = Performed at: 01 RUI) - [facility] [address] [place], [place] [id number] Director: Alberto Morrissey MD, Phone: [phone] Lab Interpretation Abnormal (test code = 10056-8) [facility] with platelet count + automated giic3065-04-16 13:07:00 Test Item Value Reference Range Interpretation Comments WBC (test code = 5.4 See_Comment [Automated ) message] The system which generated this result transmit lola reference range : 3.4 - 10.8 x10E3/uL. The reference range was not used to interpret this result as normal/abnormal . RBC (test code = 4.11 See_Comment [Automated 384-2) message] The system which generated this result [...] RUI (test code = Performed at: ) [facility] [address] [place] [id number] Director: Alberto Morrissey MD, Phone: [phone] [facility] CenterHepatitis C twraiaxl4651-38-21 13:07:00 Test Item Value Reference Range Interpretation [...] the ruthann gnosis of acute HCV infection. [facility] orp offers Hepatiti s C Virus (HCV) RNA , Diagnosis, TRIPP (732794) and Hepatitis C Vir us (HCV) Antibody with reflex to Quantitative Real-time PCR (976779). [Auto mated message] The sy stem which generated this result transmit lola reference range : 0.0 - 0.9 s/co rati o. The reference range was not used to int erpret this result as normal/abnormal . RUI (test code Performed at: - = RUI) [facility] [address] [id number] Director: Alberto Morrissey MD, Phone: [phone] [facility] 12 vnhf6010-08-12 11:56:00 Test Item Value Reference Range Interpretation Comments Lab Interpretation (test code = Abnormal 04348-7) [place] [address] flnj9077-12-95 11:56:00 Test Item Value Reference Range Interpretation Comments Lab Interpretation (test code = Abnormal 36307-8) [place] [address] hprt0520-85-50 11:56:00 Test Item Value Reference Range Interpretation Comments Lab Interpretation (test code = Abnormal 59282-0) [place] [address] hlrs8732-67-25 11:56:00 Test Item Value Reference Range Interpretation Comments Lab Interpretation (test code = Abnormal 37734-6) [address]2022-06-23 11:56:00 Test Item Value Reference Range Interpretation Comments Lab Interpretation (test code = Abnormal 02890-5) [facility] 12 [id number] 11:56:00 Test Item Value Reference Range Interpretation Comments Lab Interpretation (test code = Abnormal 00615-5) [facility] CenterVisual acuity ysrgxvbih2150-27-08 11:27:00 Test Item Value Reference Range Interpretation Comments RUI (test code = RUI) Both eyes: 30/20Left eye: 30/20Right eye: 0Patient has [place] [facility] Lab Interpretation (test Abnormal code = 14760-2) [facility] Center[facility] acuity cpkzbngyu6366-84-56 11:27:00 Test Item Value Reference Range Interpretation Comments RUI (test code = RUI) Both eyes: 30/20Left eye: 30/20Right eye: 0Patient has [place] vision Lab Interpretation (test Abnormal code = 20124-2) [facility] ufeelircy2325-29-29 11:27:00 Test Item Value Reference Range Interpretation Comments RUI (test code = RUI) Both eyes: 30/20Left eye: 30/20Right eye: 0Patient has [place] vision Lab Interpretation (test Abnormal code = 89414-2) [facility] mjsesjwdw6063-13-47 11:27:00 Test Item Value Reference Range Interpretation Comments RUI (test code = RUI) Both eyes: 30/20Left eye: 30/20Right eye: 0Patient has [place] [facility] Lab Interpretation (test Abnormal code = 10911-5) [facility] CenterVisual acuity ubuhkwcaf3993-04-50 11:27:00 Test Item Value Reference Range Interpretation Comments RUI (test code = RUI) Both eyes: 30/20Left eye: 30/20Right eye: 0Patient has [place] [facility] Lab Interpretation (test Abnormal code = 01010-8) [facility] Center[facility] acuity vzjzhctbb1754-25-35 11:27:00 Test Item Value Reference Range Interpretation Comments RUI (test code = RUI) Both eyes: 30/20Left eye: 30/20Right eye: 0Patient has [place] vision Lab Interpretation (test Abnormal code = 95648-1) [facility] CenterRAD, RIBS, [id number] 15:58:00Reason for Exam:- >[facility] : 1955 Sex: [...] displaced right-sided rib fracture. Signed: Kusum Vitale Verified Date/Time: 05/15/2020 15:58:07 Reading Location: [facility] Diagnostic Imaging Reading Room - [place] [address] RAD, ANKLE, 2 VIEWS, [id number] 15:47:00Reason for Exam:->left ankle inury/pain/swelling [facility] : 1955 Sex: [...] Vitale Verified Date/Time: 05/15/2020 15:47:49 Reading Location: [facility] Diagnostic Imaging Reading Room [place] [address] RAD, LEG, [id number] 15:47:00Reason for Exam:->PAIN IN LEFT LOWER LEG [facility] : 1955 Sex: [...] Vitale Verified Date/Time: 05/15/2020 15:47:49 Reading Location: [facility] Diagnostic Imaging Reading Room [place] [address] RAPID DRUG SCREEN, [id number] 14:42:00 Test Item Value Reference Range Interpretation [...] ng/mLOpiate 300 ng/mLMethadone 300 ng/mLAmphetamine/ 1000 ng/mL MethamphetamineThisassay provides an unconfirmed qualitative test result for the clinical management of patients in emergency situations. Chain of custody not maintained. Some dawq-pxd-gycfpkk medications, as well as adulterants, may cause inaccurate results. Clinical correlation should be applied. A more comprehensive drug screen or confirmation of a detected drug may be performed upon request.Recruiting Manager ID - [id number] 2019-06-14 14:20:00 Test Item Value Reference [...] failure, acidosis, acute neurological disease, and persistent tachyarrhythmia.Recruiting Manager ID - [id number] LEVEL 2019-06-14 14:20:00 Test Item Value Reference Range Interpretation Comments ACETAMINOPHEN LEVEL (BEAKER) (test < ug/mL 10.0-30.0 L code = 344) Recruiting Manager ID - [id number] METABOLIC [id number] 14:13:00 Test Item Value Reference Range Interpretation [...] S NOT APPLICABLE FOR DIALYSIS PATIEN TS. Recruiting Manager ID - [id number] FUNCTION RGRQC6500-63-84 14:13:00 Test Item Value Reference Range Interpretation [...] Specimen slightly (test code = 347) hemolyzed Recruiting Manager ID - [id number] SCAQQ4993-12-81 14:07:00 Test Item Value Reference Range Interpretation Comments SALICYLATE LEVEL (BEAKER) (test code < mg/dL 20.0-30.0 L = 764) Recruiting Manager ID - [id number], SPINE, LUMBAR, 2 OR 3 [id number] 14:05:00Reason for exam:->BACK PAINFINAL REPORT RAD, SPINE, [...] Verified D ate/Time: 06/14/2019 14:05:09 Reading Location: [facility] Radiology Reading Room [id number] 14:03:00 Test Item Value Reference Range Interpretation Comments ETHANOL (BEAKER) (test code = 400) < mg/dL <=10 Recruiting Manager ID - [id number] W/PLT COUNT & AUTO GLLWWFSVKRDD7267-98-70 13:45:00 Test Item Value Reference Range Interpretation [...] MR, SPINE, LUMBAR, WITHOUT / WITH IV [id number] 17:00:00FINAL REPORT MRI OF THE LUMBAR SPINE [...] Parson MDReportVerified Date/Time: 03/02/2019 17:00:10 Reading Location: [facility] Radiology Reading Room -YHVVMWXMKC9808-10-26 15:06:00 Test Item Value Reference Range Interpretation Comments POC-CREATININE 0.6 mg/dL 0.6-1.3 TESTED AT [facility] [place] [address] (BLAINE) (test [address] code = 1859) [place] [address] POC-EGFR (BLAINE) 101 mL/min/1.73M2 (test code = 1860) MR, SPINE, CERVICAL, WITHOUT IV [id number] 16:06:00FINAL REPORT INDICATION: Neck pain COMPARISON:October 24, [...] significant upper cervical degenerative change. Signed: [facility] Verified Date/Time: 11/02/2018 16:06:08 Reading Location: [facility] Diagnostic Imaging Reading Room - [place] [address] MR, BRAIN, WITHOUT IV [id number] 13:53:00FINAL REPORT MR, BRAIN, WITHOUT IV CONTRAST [...] MRI of the brain. Signed: Bushra Rodríguez MDReport Verified Date/Time: 11/02/2018 13:53:48 Reading Location: [facility] Radiology Reading Room COMPREHENSIVE METABOLIC PANEL 2018-07-26 [...] PATIEN TS. CBC W/PLT COUNT & AUTO [id number] 18:05:00 Test Item Value Reference Range Interpretation [...] Multilevel postop and degenerative changes. Signed: Sean Elliott MDReport Verified Date/Time: 07/26/2018 16:55:43 Reading Location: [facility] Diagnostic Imaging Reading Room - [facility] 1.310.12 MR, BRAIN, WITHOUT IV [id number] 18:08:00FINAL REPORT MRI Brain without contrast Clinical [...] sequela of traumatic brain injury. Signed: Logan Delgado MDRtraceyort Verified Date/Time: 11/18/2017 18:08:58 Reading Location: [facility] Radiology Reading Room MR, EXTREMITY, LOWER, JOINT, WITHOUT IV CONTRAST, [id number] 13:20:00Reason for Exam:->R/O abductor tearFINAL REPORT MRI [...] and minimal right hamstring tendinopathy. Signed: Justo Ninaort Verified Date/Time: 05/14/2017 13:20:21 Reading Location: [address] Ortho Consult Reading Room [id number] 21:43:00 Test Item Value Reference Range Interpretation Comments K-time Rapid (test code = K-time 1.4 min 0.6-2.3 Rapid) [facility] HospitalEzhktjuXLPVAXMFZZ5060-47-21 21:43:00 Test Item Value Reference Range Interpretation Comments Estimated % Lysis Rapid 4.6 See_Comment [Au tomated message] The (test code = Estimated syste m which generated % Lysis Rapid) this result t ransmitted reference range : <=7.5. The reference r morales was not used to int erpret this result as normal/abnormal . [facility] HospitalMycvanfJHELDKNUII2970-13-07 21:43:00 Test Item Value Reference Range Interpretation Comments G-value Rapid (test code = G-value 7.6 5.0-11.6 Rapid) [facility] HospitalYprbccsBAKLCXWGFL8034-23-23 21:43:00 Test Item Value Reference Range Interpretation Comments Max Amplitude Rapid (test code = Max 61 mm 52-71 Amplitude Rapid) [facility] HospitalBmqvvyoMNMCDKBRSD6970-54-12 21:43:00 Test Item Value Reference Range Interpretation Comments Angle Rapid (test code = Angle 70 degrees 64-80 Rapid) [facility] HospitalZwaiwvyJWXSIJVYFE1516-70-03 21:43:00 Test Item Value Reference Range Interpretation Comments R-time Rapid (test code = R-time 1.2 min 0.4-0.7 Rapid) [facility] HospitalOfxxxonTGBMRFGNYO6756-12-14 21:43:00 Test Item Value Reference Range Interpretation Comments Split Point Rapid (test code = Split 0.8 min Point Rapid) [facility] HospitalQoqaoucLYUDNFFONI7192-02-01 21:43:00 Test Item Value Reference Range Interpretation Comments ACT (TEG) Rapid (test code = ACT (TEG) 160 s 86-118 Rapid) [facility] HospitalMqlgmymYYJOJBEMLT9463-54-50 21:43:00 Test Item Value Reference Range Interpretation Comments Fibrinogen Lvl (test code = Fibrinogen 284 230-510 Lvl) [facility] HospitalHmdkvdkHFFVSKECDP8027-84-66 21:43:00 Test Item Value Reference Range Interpretation Comments PTT (test code = PTT) 25.2 s 22.9-35.8 [facility] HospitalSuwymjhGZTGSIACMZ3651-81-58 21:43:00 Test Item Value Reference Range Interpretation Comments INR (test code = INR) 0.94 0.85-1.17 [facility] HospitalYuznwkxAKLNGZGLZE3431-93-20 21:43:00 Test Item Value Reference Range Interpretation Comments PT (test code = PT) 12.8 s 12.0-14.7 [facility] HospitalSqyimkaTDQEGTDHPU2562-63-66 21:43:00 Test Item Value Reference Range Interpretation Comments MPV (test code = MPV) 8.6 7.4-10.4 [facility] HospitalPmocxwiGFRSYCBULV7830-35-49 21:43:00 Test Item Value Reference Range Interpretation Comments Platelet (test code = Platelet) 204 133-450 [facility] HospitalQyrslyqFCOWWOAQNK3961-78-89 21:43:00 Test Item Value Reference Range Interpretation Comments RDW (test code = RDW) 13.9 11.5-14.5 [facility] HospitalDmhflyeCYHPVZOSMN5142-40-74 21:43:00 Test Item Value Reference Range Interpretation Comments MCHC (test code = MCHC) 32.9 32.0-36.0 [facility] HospitalOcidjhxXYDGRKKDIC7765-04-58 21:43:00 Test Item Value Reference Range Interpretation Comments MCH (test code = MCH) 31.9 pg 27.0-31.0 [facility] HospitalCjikjnjTBLXIBRUST9968-61-93 21:43:00 Test Item Value Reference Range Interpretation Comments WBC (test code = WBC) 9.0 3.7-10.4 [facility] HospitalClhmnxaRPBGNUGVLZ8247-31-57 21:43:00 Test Item Value Reference Range Interpretation Comments MCV (test code = MCV) 96.8 80.0-98.0 [facility] HospitalQsvdlcqSKWQUEVRWI6297-72-06 21:43:00 Test Item Value Reference Range Interpretation Comments Hct (test code = Hct) 38.0 36.0-48.0 [facility] HospitalSpkxuiqJCVUANOJGD6931-70-58 21:43:00 Test Item Value Reference Range Interpretation Comments Hgb (test code = Hgb) 12.5 12.0-16.0 [facility] HospitalBnrckbaFMQLSJJHUR5077-13-74 21:43:00 Test Item Value Reference Range Interpretation Comments RBC (test code = RBC) 3.92 4.20-5.40 [facility] HospitalSdljyjnHTOGQPVQBA0652-50-42 21:43:00 Test Item Value Reference Range Interpretation Comments Monocytes # (test code 0.1 See_Comment [Aut omated message] The = Monocytes #) system which generated this result tra nsmitted reference range : <=0.8. The reference r morales was not used to int erpret this result as normal/abnormal . [facility] HospitalRipixiiTVIZRSBTPP9195-02-17 21:43:00 Test Item Value Reference Range Interpretation Comments Anisocyte (test code = 1+ *ABN*(10/04/16 Anisocyte) 4:43 PM) [facility] HospitalVyrrkfuRULZOJPQOO0449-03-82 21:43:00 Test Item Value Reference Range Interpretation Comments Lymphocytes # (test code = Lymphocytes 0.2 1.0-5.5 #) [facility] HospitalCikvzszEFYLDLTZQS3469-07-69 21:43:00 Test Item Value Reference Range Interpretation Comments Segs-Bands # (test code = Segs-Bands #) 8.7 1.5-8.1 [facility] HospitalEksusswWLEQZQMWKJ5355-11-67 21:43:00 Test Item Value Reference Range Interpretation Comments Basophils (test code = 0.1 See_Comment [Aut omated message] The Basophils) system which ge nerated this result tra nsmitted reference range : <=1.0. The reference r morales was not used to int erpret this result as normal/abnormal . [facility] HospitalNkiumqoETDAOEKUSZ5992-19-44 21:43:00 Test Item Value Reference Range Interpretation Comments Lymphocytes (test code = Lymphocytes) 2.0 20.0-40.0 [facility] HospitalBrpcgrtRKJFPGVKJK1038-95-08 21:43:00 Test Item Value Reference Range Interpretation Comments Monocytes (test code = Monocytes) 1.4 2.0-12.0 [facility] HospitalCrcgpygSBHZPXABJU1989-19-32 21:43:00 Test Item Value Reference Range Interpretation Comments Segs (test code = Segs) 96.5 45.0-75.0 [facility] HospitalVxlinauARHBRUIKRP8340-89-18 21:43:00 Test Item Value Reference Range Interpretation Comments Plt Morph (test code = Normal (10/04/16 4:43 Plt Morph) PM) [facility] HospitalBbvtivhFVFNLQJMIL7404-54-70 21:43:00 Test Item Value Reference Range Interpretation Comments RBC Morph (test code = Normal (10/04/16 4:43 RBC Morph) PM) [facility] HospitalCxahyoqYYAKEXLJMV1894-98-14 21:43:00 Test Item Value Reference Range Interpretation Comments K-time Rapid (test code = K-time 1.4 min 0.6-2.3 Rapid) [facility] HospitalJthftcvNMRAITWXUF1925-25-78 21:43:00 Test Item Value Reference Range Interpretation Comments Estimated % Lysis Rapid 4.6 See_Comment [Au tomated message] The (test code = Estimated syste m which generated % Lysis Rapid) this result t ransmitted reference range : <=7.5. The reference r morales was not used to int erpret this result as normal/abnormal . [facility] HospitalCmedkclUCWMSAOJBG5229-11-46 21:43:00 Test Item Value Reference Range Interpretation Comments G-value Rapid (test code = G-value 7.6 5.0-11.6 Rapid) [facility] HospitalIgyjgedTHGOXREMDZ2566-53-97 21:43:00 Test Item Value Reference Range Interpretation Comments Max Amplitude Rapid (test code = Max 61 mm 52-71 Amplitude Rapid) [facility] HospitalMvewrlhFMXUWNNCHK0911-95-75 21:43:00 Test Item Value Reference Range Interpretation Comments Angle Rapid (test code = Angle 70 degrees 64-80 Rapid) [facility] HospitalMsznsloPKIXJIMECZ0129-28-51 21:43:00 Test Item Value Reference Range Interpretation Comments R-time Rapid (test code = R-time 1.2 min 0.4-0.7 Rapid) [facility] HospitalUmkzswcLRIVFCMKQI4106-22-75 21:43:00 Test Item Value Reference Range Interpretation Comments Split Point Rapid (test code = Split 0.8 min Point Rapid) [facility] HospitalVuwoxydPIPQLKNKTL5530-08-19 21:43:00 Test Item Value Reference Range Interpretation Comments ACT (TEG) Rapid (test code = ACT (TEG) 160 s 86-118 Rapid) [facility] HospitalNqyuhypJXFWZQYSRL9626-90-99 21:43:00 Test Item Value Reference Range Interpretation Comments Fibrinogen Lvl (test code = Fibrinogen 284 230-510 Lvl) [facility] HospitalEarzlurEIMWWJVLPM6265-02-54 21:43:00 Test Item Value Reference Range Interpretation Comments PTT (test code = PTT) 25.2 s 22.9-35.8 [facility] HospitalZvbbjgbTHRMCMHOFT6845-72-65 21:43:00 Test Item Value Reference Range Interpretation Comments INR (test code = INR) 0.94 0.85-1.17 [facility] HospitalJwjqiosNSLFKSUNZY2412-50-23 21:43:00 Test Item Value Reference Range Interpretation Comments PT (test code = PT) 12.8 s 12.0-14.7 [facility] HospitalOxcuwcnVCJYEZQNHV6502-67-81 21:43:00 Test Item Value Reference Range Interpretation Comments MPV (test code = MPV) 8.6 7.4-10.4 [facility] HospitalTlfhhlsCDRVWTJUVN6660-07-97 21:43:00 Test Item Value Reference Range Interpretation Comments Platelet (test code = Platelet) 204 133-450 [facility] HospitalDrdtwqvNLLUMFRNIQ8079-95-60 21:43:00 Test Item Value Reference Range Interpretation Comments RDW (test code = RDW) 13.9 11.5-14.5 [facility] HospitalPthudmeWIEYLEMSBN6836-54-26 21:43:00 Test Item Value Reference Range Interpretation Comments MCHC (test code = MCHC) 32.9 32.0-36.0 [facility] HospitalNwpqtkbDCXTKZTPJN5801-60-80 21:43:00 Test Item Value Reference Range Interpretation Comments MCH (test code = MCH) 31.9 pg 27.0-31.0 [facility] HospitalLogaorjMYNPLAUUCM4879-67-75 21:43:00 Test Item Value Reference Range Interpretation Comments WBC (test code = WBC) 9.0 3.7-10.4 [facility] HospitalUlofnjuJUHINDBLDH9791-34-72 21:43:00 Test Item Value Reference Range Interpretation Comments MCV (test code = MCV) 96.8 80.0-98.0 [facility] HospitalKvrojeeRPRCXKXEEE4224-83-42 21:43:00 Test Item Value Reference Range Interpretation Comments Hct (test code = Hct) 38.0 36.0-48.0 [facility] HospitalCtwdkvyKDPTABAWVR1391-31-21 21:43:00 Test Item Value Reference Range Interpretation Comments Hgb (test code = Hgb) 12.5 12.0-16.0 [facility] HospitalCbldkuhEUNRLXDUNW4333-65-03 21:43:00 Test Item Value Reference Range Interpretation Comments RBC (test code = RBC) 3.92 4.20-5.40 [facility] HospitalElcavfbDPGIESEVMX8174-37-48 21:43:00 Test Item Value Reference Range Interpretation Comments Monocytes # (test code 0.1 See_Comment [Aut omated message] The = Monocytes #) system which generated this result tra nsmitted reference range : <=0.8. The reference r morales was not used to int erpret this result as normal/abnormal . [facility] HospitalMfyabpsXTPNFSINRK9059-54-39 21:43:00 Test Item Value Reference Range Interpretation Comments Anisocyte (test code = 1+ *ABN*(10/04/16 Anisocyte) 4:43 PM) [facility] HospitalWtklzicAZVZCHELIJ5582-83-96 21:43:00 Test Item Value Reference Range Interpretation Comments Lymphocytes # (test code = Lymphocytes 0.2 1.0-5.5 #) [facility] HospitalRcxrkqlZDLODAQHWX2545-73-56 21:43:00 Test Item Value Reference Range Interpretation Comments Segs-Bands # (test code = Segs-Bands #) 8.7 1.5-8.1 [facility] HospitalOcqvjcaDHJMGPZHKY8306-29-17 21:43:00 Test Item Value Reference Range Interpretation Comments Basophils (test code = 0.1 See_Comment [Aut omated message] The Basophils) system which ge nerated this result tra nsmitted reference range : <=1.0. The reference r morales was not used to int erpret this result as normal/abnormal . [facility] HospitalFbucczzOAHCPTPIEP4858-76-10 21:43:00 Test Item Value Reference Range Interpretation Comments Lymphocytes (test code = Lymphocytes) 2.0 20.0-40.0 [facility] HospitalFdorwrqSJORNQKKFS2534-35-89 21:43:00 Test Item Value Reference Range Interpretation Comments Monocytes (test code = Monocytes) 1.4 2.0-12.0 [facility] HospitalVtwlwhxYEQJAZEYNF5103-24-81 21:43:00 Test Item Value Reference Range Interpretation Comments Segs (test code = Segs) 96.5 45.0-75.0 [facility] HospitalRhfdesrEMJMPGNLDL1882-09-77 21:43:00 Test Item Value Reference Range Interpretation Comments Plt Morph (test code = Normal (10/04/16 4:43 Plt Morph) PM) [facility] HospitalUfpaktvVFLQRFFAAG0094-22-21 21:43:00 Test Item Value Reference Range Interpretation Comments RBC Morph (test code = Normal (10/04/16 4:43 RBC Morph) PM) [facility] HospitalDhpfrnwZBCHRPQSHG3492-96-61 21:43:00 Test Item Value Reference Range Interpretation Comments K-time Rapid (test code = K-time 1.4 min 0.6-2.3 Rapid) [facility] HospitalCjmhvirUHMQFBXBZN6210-22-89 21:43:00 Test Item Value Reference Range Interpretation Comments Estimated % Lysis Rapid 4.6 See_Comment [Au tomated message] The (test code = Estimated syste m which generated % Lysis Rapid) this result t ransmitted reference range : <=7.5. The reference r morales was not used to int erpret this result as normal/abnormal . [facility] HospitalGxqukqnDFMWLKPNHP7669-02-11 21:43:00 Test Item Value Reference Range Interpretation Comments G-value Rapid (test code = G-value 7.6 5.0-11.6 Rapid) [facility] HospitalYwlhdulXDMFFFKQXS3827-23-88 21:43:00 Test Item Value Reference Range Interpretation Comments Max Amplitude Rapid (test code = Max 61 mm 52-71 Amplitude Rapid) [facility] HospitalRezandiGEOEVXLMAY2088-52-97 21:43:00 Test Item Value Reference Range Interpretation Comments Angle Rapid (test code = Angle 70 degrees 64-80 Rapid) [facility] HospitalWacwvpjLGKITXPPHR3708-02-18 21:43:00 Test Item Value Reference Range Interpretation Comments R-time Rapid (test code = R-time 1.2 min 0.4-0.7 Rapid) [facility] HospitalFhbalhnFCOWZPQCUA9292-13-52 21:43:00 Test Item Value Reference Range Interpretation Comments Split Point Rapid (test code = Split 0.8 min Point Rapid) [facility] HospitalYdbpyrcHSHBLIVKVU9778-93-97 21:43:00 Test Item Value Reference Range Interpretation Comments ACT (TEG) Rapid (test code = ACT (TEG) 160 s 86-118 Rapid) [facility] HospitalRsmedcrDLFYWHRIHD7337-57-39 21:43:00 Test Item Value Reference Range Interpretation Comments Fibrinogen Lvl (test code = Fibrinogen 284 230-510 Lvl) [facility] HospitalAlbiawwGDMYWHOXVH7476-96-92 21:43:00 Test Item Value Reference Range Interpretation Comments PTT (test code = PTT) 25.2 s 22.9-35.8 [facility] HospitalEczdmucZQAYQJVAEC4966-13-27 21:43:00 Test Item Value Reference Range Interpretation Comments INR (test code = INR) 0.94 0.85-1.17 [facility] HospitalUlwnaykPSXOZGOBUZ0261-85-71 21:43:00 Test Item Value Reference Range Interpretation Comments PT (test code = PT) 12.8 s 12.0-14.7 [facility] HospitalPpezrybRRRGEEGWGC7012-11-92 21:43:00 Test Item Value Reference Range Interpretation Comments MPV (test code = MPV) 8.6 7.4-10.4 [facility] HospitalIpyxwqaLDPKISFSLP6274-26-19 21:43:00 Test Item Value Reference Range Interpretation Comments Platelet (test code = Platelet) 204 133-450 [facility] HospitalGchvejuRZCQCNZEYK1388-85-28 21:43:00 Test Item Value Reference Range Interpretation Comments RDW (test code = RDW) 13.9 11.5-14.5 [facility] HospitalNqvhwiuZNVEVOKKIV1329-22-54 21:43:00 Test Item Value Reference Range Interpretation Comments MCHC (test code = MCHC) 32.9 32.0-36.0 [facility] HospitalPcqeqdoKJXDZQOWIL3926-73-72 21:43:00 Test Item Value Reference Range Interpretation Comments MCH (test code = MCH) 31.9 pg 27.0-31.0 [facility] HospitalAdovzqpSIXKHNXYJA2076-21-14 21:43:00 Test Item Value Reference Range Interpretation Comments WBC (test code = WBC) 9.0 3.7-10.4 [facility] HospitalFbthdkwMGVILOPSBT4455-22-30 21:43:00 Test Item Value Reference Range Interpretation Comments MCV (test code = MCV) 96.8 80.0-98.0 [facility] HospitalPxtwhbvXYKBFHJVBS0471-72-21 21:43:00 Test Item Value Reference Range Interpretation Comments Hct (test code = Hct) 38.0 36.0-48.0 [facility] HospitalHdfhxnjSLVLMFSTQJ7238-10-64 21:43:00 Test Item Value Reference Range Interpretation Comments Hgb (test code = Hgb) 12.5 12.0-16.0 [facility] HospitalYnnqsbgTWTKQRWDEU9218-18-25 21:43:00 Test Item Value Reference Range Interpretation Comments RBC (test code = RBC) 3.92 4.20-5.40 [facility] HospitalFloftewDTOMIXEFGJ4985-73-46 21:43:00 Test Item Value Reference Range Interpretation Comments Monocytes # (test code 0.1 See_Comment [Aut omated message] The = Monocytes #) system which generated this result tra nsmitted reference range : <=0.8. The reference r morales was not used to int erpret this result as normal/abnormal . [facility] HospitalIhrllwcJJFDCLUJIV4151-59-62 21:43:00 Test Item Value Reference Range Interpretation Comments Anisocyte (test code = 1+ *ABN*(10/04/16 Anisocyte) 4:43 PM) [facility] HospitalZbnzkyqRMSYFRVNEZ7426-62-54 21:43:00 Test Item Value Reference Range Interpretation Comments Lymphocytes # (test code = Lymphocytes 0.2 1.0-5.5 #) [facility] HospitalExkktnyHNSKDIAHXL4116-18-70 21:43:00 Test Item Value Reference Range Interpretation Comments Segs-Bands # (test code = Segs-Bands #) 8.7 1.5-8.1 [facility] HospitalZbodkghUXRYEJGFRL2082-58-41 21:43:00 Test Item Value Reference Range Interpretation Comments Basophils (test code = 0.1 See_Comment [Aut omated message] The Basophils) system which ge nerated this result tra nsmitted reference range : <=1.0. The reference r morales was not used to int erpret this result as normal/abnormal . [facility] HospitalYfpriclABUFDOPVEY3239-46-68 21:43:00 Test Item Value Reference Range Interpretation Comments Lymphocytes (test code = Lymphocytes) 2.0 20.0-40.0 [facility] HospitalHlhjusiEXYPTMFDRU9495-33-94 21:43:00 Test Item Value Reference Range Interpretation Comments Monocytes (test code = Monocytes) 1.4 2.0-12.0 [facility] HospitalExvjnksBIKACVZHCJ0752-96-00 21:43:00 Test Item Value Reference Range Interpretation Comments Segs (test code = Segs) 96.5 45.0-75.0 [facility] HospitalYlbcgdxNJLDVJBHRV8436-81-20 21:43:00 Test Item Value Reference Range Interpretation Comments Plt Morph (test code = Normal (10/04/16 4:43 Plt Morph) PM) [facility] HospitalQnjyscuPTRMBGPCMC8860-06-25 21:43:00 Test Item Value Reference Range Interpretation Comments RBC Morph (test code = Normal (10/04/16 4:43 RBC Morph) PM) [facility] HospitalXonpaprUINBJYRHRR8754-38-04 21:43:00 Test Item Value Reference Range Interpretation Comments K-time Rapid (test code = K-time 1.4 min 0.6-2.3 Rapid) [facility] HospitalVxwydkpDSNSWRWKEQ0109-49-82 21:43:00 Test Item Value Reference Range Interpretation Comments Estimated % Lysis Rapid 4.6 See_Comment [Au tomated message] The (test code = Estimated syste m which generated % Lysis Rapid) this result t ransmitted reference range : <=7.5. The reference r morales was not used to int erpret this result as normal/abnormal . [facility] HospitalGkxxkazUEQDCYLXID0088-55-31 21:43:00 Test Item Value Reference Range Interpretation Comments G-value Rapid (test code = G-value 7.6 5.0-11.6 Rapid) [facility] HospitalOkqyakuLJFPPZIQWE0096-51-33 21:43:00 Test Item Value Reference Range Interpretation Comments Max Amplitude Rapid (test code = Max 61 mm 52-71 Amplitude Rapid) [facility] HospitalGzcdodbACGZBPMMEH9339-12-49 21:43:00 Test Item Value Reference Range Interpretation Comments Angle Rapid (test code = Angle 70 degrees 64-80 Rapid) [facility] HospitalVxyxqzvFLGSFDPPQM7803-32-64 21:43:00 Test Item Value Reference Range Interpretation Comments R-time Rapid (test code = R-time 1.2 min 0.4-0.7 Rapid) [facility] HospitalWqbtjeyMIFOSPCJUQ9117-41-01 21:43:00 Test Item Value Reference Range Interpretation Comments Split Point Rapid (test code = Split 0.8 min Point Rapid) [facility] HospitalRgqkdxxDIQUEJHHEV9487-17-82 21:43:00 Test Item Value Reference Range Interpretation Comments ACT (TEG) Rapid (test code = ACT (TEG) 160 s 86-118 Rapid) [facility] HospitalWfdupdwFVOBZWXFZU3407-91-79 21:43:00 Test Item Value Reference Range Interpretation Comments Fibrinogen Lvl (test code = Fibrinogen 284 230-510 Lvl) [facility] HospitalLdcqgkvSRWDRJWVZS7834-98-22 21:43:00 Test Item Value Reference Range Interpretation Comments PTT (test code = PTT) 25.2 s 22.9-35.8 [facility] HospitalYskbgdvBLQQOEEVBI7601-03-23 21:43:00 Test Item Value Reference Range Interpretation Comments INR (test code = INR) 0.94 0.85-1.17 [facility] HospitalSlydlhnCIWWNRQVQI0217-45-54 21:43:00 Test Item Value Reference Range Interpretation Comments PT (test code = PT) 12.8 s 12.0-14.7 [facility] HospitalXcyhrbpDBXTGCPUHA7113-84-17 21:43:00 Test Item Value Reference Range Interpretation Comments MPV (test code = MPV) 8.6 7.4-10.4 [facility] HospitalVfqtekeVWSNMMQRBY2858-34-96 21:43:00 Test Item Value Reference Range Interpretation Comments Platelet (test code = Platelet) 204 133-450 [facility] HospitalDzycrdpHALJTYOQKQ0278-38-14 21:43:00 Test Item Value Reference Range Interpretation Comments RDW (test code = RDW) 13.9 11.5-14.5 [facility] HospitalQuydhxtFLCFDPXXRE2146-32-03 21:43:00 Test Item Value Reference Range Interpretation Comments MCHC (test code = MCHC) 32.9 32.0-36.0 [facility] HospitalElaorsjGWCXRRQXKE8153-85-86 21:43:00 Test Item Value Reference Range Interpretation Comments MCH (test code = MCH) 31.9 pg 27.0-31.0 [facility] HospitalAuxjkzuHWPSKQFJXP6258-99-69 21:43:00 Test Item Value Reference Range Interpretation Comments WBC (test code = WBC) 9.0 3.7-10.4 [facility] HospitalUfirnlwQNROZLFKLG7786-46-27 21:43:00 Test Item Value Reference Range Interpretation Comments MCV (test code = MCV) 96.8 80.0-98.0 [facility] HospitalRmafwhgIWLYCFEHEV1397-73-94 21:43:00 Test Item Value Reference Range Interpretation Comments Hct (test code = Hct) 38.0 36.0-48.0 [facility] HospitalMnvewiqDHMUVHWFBP3237-04-57 21:43:00 Test Item Value Reference Range Interpretation Comments Hgb (test code = Hgb) 12.5 12.0-16.0 [facility] HospitalXdpsheuGGQZSKYHQH0560-32-65 21:43:00 Test Item Value Reference Range Interpretation Comments RBC (test code = RBC) 3.92 4.20-5.40 [facility] HospitalNgxkcjfBTISMZCUUQ1369-77-41 21:43:00 Test Item Value Reference Range Interpretation Comments Monocytes # (test code 0.1 See_Comment [Aut omated message] The = Monocytes #) system which generated this result tra nsmitted reference range : <=0.8. The reference r morales was not used to int erpret this result as normal/abnormal . [facility] HospitalSbmccblTHLXRMCFMH4318-36-08 21:43:00 Test Item Value Reference Range Interpretation Comments Anisocyte (test code = 1+ *ABN*(10/04/16 Anisocyte) 4:43 PM) [facility] HospitalChkkvdfUSPNQHBRXC1243-52-89 21:43:00 Test Item Value Reference Range Interpretation Comments Lymphocytes # (test code = Lymphocytes 0.2 1.0-5.5 #) [facility] HospitalSyoegnmFIHNRTOEMY9817-91-94 21:43:00 Test Item Value Reference Range Interpretation Comments Segs-Bands # (test code = Segs-Bands #) 8.7 1.5-8.1 [facility] HospitalXzbwqlbIRGIGONBQX0473-96-58 21:43:00 Test Item Value Reference Range Interpretation Comments Basophils (test code = 0.1 See_Comment [Aut omated message] The Basophils) system which ge nerated this result tra nsmitted reference range : <=1.0. The reference r morales was not used to int erpret this result as normal/abnormal . [facility] HospitalXokmzwtPJSECVOMVF7346-68-94 21:43:00 Test Item Value Reference Range Interpretation Comments Lymphocytes (test code = Lymphocytes) 2.0 20.0-40.0 [facility] HospitalVkyzyrxTWUKPLAUMT4264-57-05 21:43:00 Test Item Value Reference Range Interpretation Comments Monocytes (test code = Monocytes) 1.4 2.0-12.0 [facility] HospitalBjkggpzJNFDBYLRWM4282-87-23 21:43:00 Test Item Value Reference Range Interpretation Comments Segs (test code = Segs) 96.5 45.0-75.0 [facility] HospitalVhxenuaYSIPYTHKMO1877-21-11 21:43:00 Test Item Value Reference Range Interpretation Comments Plt Morph (test code = Normal (10/04/16 4:43 Plt Morph) PM) [facility] HospitalFzierprEYNLOYWOTQ6618-47-13 21:43:00 Test Item Value Reference Range Interpretation Comments RBC Morph (test code = Normal (10/04/16 4:43 RBC Morph) PM) [facility] HospitalSldcdmmTMMZCFABJZ9419-93-44 21:43:00 Test Item Value Reference Range Interpretation Comments K-time Rapid (test code = K-time 1.4 min 0.6-2.3 Rapid) [facility] HospitalJltzbvxIYGLGBKDPB6068-04-95 21:43:00 Test Item Value Reference Range Interpretation Comments Estimated % Lysis Rapid 4.6 See_Comment [Au tomated message] The (test code = Estimated syste m which generated % Lysis Rapid) this result t ransmitted reference range : <=7.5. The reference r morales was not used to int erpret this result as normal/abnormal . [facility] HospitalQlxmhbgHHRHGSEBNZ5576-30-45 21:43:00 Test Item Value Reference Range Interpretation Comments G-value Rapid (test code = G-value 7.6 5.0-11.6 Rapid) [facility] HospitalNsxudcjGTNLDQHZRC5904-35-53 21:43:00 Test Item Value Reference Range Interpretation Comments Max Amplitude Rapid (test code = Max 61 mm 52-71 Amplitude Rapid) [facility] HospitalNbsdkisLMVCEMNDBB8621-65-75 21:43:00 Test Item Value Reference Range Interpretation Comments Angle Rapid (test code = Angle 70 degrees 64-80 Rapid) [facility] HospitalWsdubmkLKUQAYYWCO4845-94-37 21:43:00 Test Item Value Reference Range Interpretation Comments R-time Rapid (test code = R-time 1.2 min 0.4-0.7 Rapid) [facility] HospitalAwcdqhoKNNLDPDZEV0530-96-58 21:43:00 Test Item Value Reference Range Interpretation Comments Split Point Rapid (test code = Split 0.8 min Point Rapid) [facility] HospitalUtrtgmiSBEWJNXXQQ1928-21-12 21:43:00 Test Item Value Reference Range Interpretation Comments ACT (TEG) Rapid (test code = ACT (TEG) 160 s 86-118 Rapid) [facility] HospitalTaphvvlVTJJHJGSPZ0257-44-01 21:43:00 Test Item Value Reference Range Interpretation Comments Fibrinogen Lvl (test code = Fibrinogen 284 230-510 Lvl) [facility] HospitalXvovpjiPOEWFLQTCD6076-86-17 21:43:00 Test Item Value Reference Range Interpretation Comments PTT (test code = PTT) 25.2 s 22.9-35.8 [facility] HospitalMgldywqFMNVTJTMIX9747-55-67 21:43:00 Test Item Value Reference Range Interpretation Comments INR (test code = INR) 0.94 0.85-1.17 [facility] HospitalVconplxLNQPPJFPNR0356-06-84 21:43:00 Test Item Value Reference Range Interpretation Comments PT (test code = PT) 12.8 s 12.0-14.7 [facility] HospitalJwqlhudNWZTDASWNF9373-87-57 21:43:00 Test Item Value Reference Range Interpretation Comments MPV (test code = MPV) 8.6 7.4-10.4 [facility] HospitalLtonnmaHHYCRNUBHE0785-58-06 21:43:00 Test Item Value Reference Range Interpretation Comments Platelet (test code = Platelet) 204 133-450 [facility] HospitalZwyqbyaZTDTUNRPQC1965-11-73 21:43:00 Test Item Value Reference Range Interpretation Comments RDW (test code = RDW) 13.9 11.5-14.5 [facility] HospitalDjthwtgLVVNXQMYIQ0299-19-00 21:43:00 Test Item Value Reference Range Interpretation Comments MCHC (test code = MCHC) 32.9 32.0-36.0 [facility] HospitalTvtgbvmRFQDKNISJF4887-72-12 21:43:00 Test Item Value Reference Range Interpretation Comments MCH (test code = MCH) 31.9 pg 27.0-31.0 [facility] HospitalSsrigqsQVIYVPUWCZ2172-32-61 21:43:00 Test Item Value Reference Range Interpretation Comments WBC (test code = WBC) 9.0 3.7-10.4 [facility] HospitalPsxvkmeUPAQPKMJPS6143-26-38 21:43:00 Test Item Value Reference Range Interpretation Comments MCV (test code = MCV) 96.8 80.0-98.0 [facility] HospitalQxucauuURQVTVTOYG6264-14-14 21:43:00 Test Item Value Reference Range Interpretation Comments Hct (test code = Hct) 38.0 36.0-48.0 [facility] HospitalZgbfnjxMLXSMRWIID2409-98-77 21:43:00 Test Item Value Reference Range Interpretation Comments Hgb (test code = Hgb) 12.5 12.0-16.0 [facility] HospitalDrfzojbBWTVULGMYQ7080-11-73 21:43:00 Test Item Value Reference Range Interpretation Comments RBC (test code = RBC) 3.92 4.20-5.40 [facility] HospitalEitxexzZZLLHBMQGH8278-24-16 21:43:00 Test Item Value Reference Range Interpretation Comments Monocytes # (test code 0.1 See_Comment [Aut omated message] The = Monocytes #) system which generated this result tra nsmitted reference range : <=0.8. The reference r morales was not used to int erpret this result as normal/abnormal . [facility] HospitalJvdjwzxLZSRTXNZCP8104-88-75 21:43:00 Test Item Value Reference Range Interpretation Comments Anisocyte (test code = 1+ *ABN*(10/04/16 Anisocyte) 4:43 PM) [facility] HospitalKvshtacSSYQTNEHCF3290-91-42 21:43:00 Test Item Value Reference Range Interpretation Comments Lymphocytes # (test code = Lymphocytes 0.2 1.0-5.5 #) [facility] HospitalZgixlfoNILKCNMJAY3553-71-96 21:43:00 Test Item Value Reference Range Interpretation Comments Segs-Bands # (test code = Segs-Bands #) 8.7 1.5-8.1 [facility] HospitalNoxjdkeTGZWFPKLAA9099-36-53 21:43:00 Test Item Value Reference Range Interpretation Comments Basophils (test code = 0.1 See_Comment [Aut omated message] The Basophils) system which ge nerated this result tra nsmitted reference range : <=1.0. The reference r morales was not used to int erpret this result as normal/abnormal . [facility] HospitalHacafrpLKBDOONRCM0615-49-41 21:43:00 Test Item Value Reference Range Interpretation Comments Lymphocytes (test code = Lymphocytes) 2.0 20.0-40.0 [facility] HospitalRhevrluVMUFXGZJVV7214-34-99 21:43:00 Test Item Value Reference Range Interpretation Comments Monocytes (test code = Monocytes) 1.4 2.0-12.0 [facility] HospitalGhwnxmwHAZQYXFAOA8518-11-72 21:43:00 Test Item Value Reference Range Interpretation Comments Segs (test code = Segs) 96.5 45.0-75.0 [facility] HospitalHwwnvgqZCDRWIUGET5248-48-42 21:43:00 Test Item Value Reference Range Interpretation Comments Plt Morph (test code = Normal (10/04/16 4:43 Plt Morph) PM) [facility] HospitalTuveglaSVKSHGBCVY4916-44-57 21:43:00 Test Item Value Reference Range Interpretation Comments RBC Morph (test code = Normal (10/04/16 4:43 RBC Morph) PM) [facility] HospitalEoskwtcFOTYKTZSXO0915-70-08 21:43:00 Test Item Value Reference Range Interpretation Comments K-time Rapid (test code = K-time 1.4 min 0.6-2.3 Rapid) [facility] HospitalBrtunvsMWGFALQXVD6455-61-39 21:43:00 Test Item Value Reference Range Interpretation Comments Estimated % Lysis Rapid 4.6 See_Comment [Au tomated message] The (test code = Estimated syste m which generated % Lysis Rapid) this result t ransmitted reference range : <=7.5. The reference r morales was not used to int erpret this result as normal/abnormal . [facility] HospitalHetabsaMZBRXTOQGR3489-43-09 21:43:00 Test Item Value Reference Range Interpretation Comments G-value Rapid (test code = G-value 7.6 5.0-11.6 Rapid) [facility] HospitalBoksqxaTCYLMOHWNT6439-61-06 21:43:00 Test Item Value Reference Range Interpretation Comments Max Amplitude Rapid (test code = Max 61 mm 52-71 Amplitude Rapid) [facility] HospitalApfzqbzZSJOFAPBKB5670-38-63 21:43:00 Test Item Value Reference Range Interpretation Comments Angle Rapid (test code = Angle 70 degrees 64-80 Rapid) [facility] HospitalYpovxgvDGEUQWJXWS1946-04-82 21:43:00 Test Item Value Reference Range Interpretation Comments R-time Rapid (test code = R-time 1.2 min 0.4-0.7 Rapid) [facility] HospitalLjgztshXXLKNZTMWP8015-64-03 21:43:00 Test Item Value Reference Range Interpretation Comments Split Point Rapid (test code = Split 0.8 min Point Rapid) [facility] HospitalKsfpcadWMUEJUXRJU5607-93-83 21:43:00 Test Item Value Reference Range Interpretation Comments ACT (TEG) Rapid (test code = ACT (TEG) 160 s 86-118 Rapid) [facility] HospitalIzrobvzAMHSRILTOK4418-88-01 21:43:00 Test Item Value Reference Range Interpretation Comments Fibrinogen Lvl (test code = Fibrinogen 284 230-510 Lvl) [facility] HospitalIkburfgBBXNJIIKMJ7443-04-36 21:43:00 Test Item Value Reference Range Interpretation Comments PTT (test code = PTT) 25.2 s 22.9-35.8 [facility] HospitalIxrqgaeLTMRFYJFBL3523-98-12 21:43:00 Test Item Value Reference Range Interpretation Comments INR (test code = INR) 0.94 0.85-1.17 [facility] HospitalOoswbxfNKFEYVTNDP8039-60-31 21:43:00 Test Item Value Reference Range Interpretation Comments PT (test code = PT) 12.8 s 12.0-14.7 [facility] HospitalKcoiftaZVMMOOEMLR1558-96-66 21:43:00 Test Item Value Reference Range Interpretation Comments MPV (test code = MPV) 8.6 7.4-10.4 [facility] HospitalHocpemxDWOZFDCYNU3677-41-22 21:43:00 Test Item Value Reference Range Interpretation Comments Platelet (test code = Platelet) 204 133-450 [facility] HospitalFggjzpkUOAZVMQILK2948-08-36 21:43:00 Test Item Value Reference Range Interpretation Comments RDW (test code = RDW) 13.9 11.5-14.5 [facility] HospitalJijzisvPECBLANDUI0568-86-01 21:43:00 Test Item Value Reference Range Interpretation Comments MCHC (test code = MCHC) 32.9 32.0-36.0 [facility] HospitalEhquogyBRXZLDTDVF8252-40-26 21:43:00 Test Item Value Reference Range Interpretation Comments MCH (test code = MCH) 31.9 pg 27.0-31.0 [facility] HospitalHagsrnpWPGYNGSQNS0584-45-78 21:43:00 Test Item Value Reference Range Interpretation Comments WBC (test code = WBC) 9.0 3.7-10.4 [facility] HospitalGzulvvjCIDXEXAYJB1006-36-63 21:43:00 Test Item Value Reference Range Interpretation Comments MCV (test code = MCV) 96.8 80.0-98.0 [facility] HospitalSghyqtoZEKPISABAK0682-87-42 21:43:00 Test Item Value Reference Range Interpretation Comments Hct (test code = Hct) 38.0 36.0-48.0 [facility] HospitalNfhusffWNWTAOHHKX4686-51-59 21:43:00 Test Item Value Reference Range Interpretation Comments Hgb (test code = Hgb) 12.5 12.0-16.0 [facility] HospitalUpphglrUBNBRUIYEH6081-36-93 21:43:00 Test Item Value Reference Range Interpretation Comments RBC (test code = RBC) 3.92 4.20-5.40 [facility] HospitalKmficzoRTNPEROYIL3880-12-85 21:43:00 Test Item Value Reference Range Interpretation Comments Monocytes # (test code 0.1 See_Comment [Aut omated message] The = Monocytes #) system which generated this result tra nsmitted reference range : <=0.8. The reference r morales was not used to int erpret this result as normal/abnormal . [facility] HospitalPuidantLSKUEEMOPF5995-76-87 21:43:00 Test Item Value Reference Range Interpretation Comments Anisocyte (test code = 1+ *ABN*(10/04/16 Anisocyte) 4:43 PM) [facility] HospitalXeszinkFUFSXGECJU8344-92-98 21:43:00 Test Item Value Reference Range Interpretation Comments Lymphocytes # (test code = Lymphocytes 0.2 1.0-5.5 #) [facility] HospitalWrpoadzRICPLYRLSM8368-05-91 21:43:00 Test Item Value Reference Range Interpretation Comments Segs-Bands # (test code = Segs-Bands #) 8.7 1.5-8.1 [facility] HospitalUysvzhiTRKOJCNRRG2086-03-92 21:43:00 Test Item Value Reference Range Interpretation Comments Basophils (test code = 0.1 See_Comment [Aut omated message] The Basophils) system which ge nerated this result tra nsmitted reference range : <=1.0. The reference r morales was not used to int erpret this result as normal/abnormal . [facility] HospitalAyvrxjxZJQPMRILSL6961-21-84 21:43:00 Test Item Value Reference Range Interpretation Comments Lymphocytes (test code = Lymphocytes) 2.0 20.0-40.0 [facility] HospitalJizsxlgQCOGLFFDHD7072-20-80 21:43:00 Test Item Value Reference Range Interpretation Comments Monocytes (test code = Monocytes) 1.4 2.0-12.0 [facility] HospitalDeftihvBNELLFOJSL0978-46-61 21:43:00 Test Item Value Reference Range Interpretation Comments Segs (test code = Segs) 96.5 45.0-75.0 [facility] HospitalJustjekYLWMNDDISP1988-50-76 21:43:00 Test Item Value Reference Range Interpretation Comments Plt Morph (test code = Normal (10/04/16 4:43 Plt Morph) PM) [facility] HospitalAeqkydfEMPLABBRBW5212-35-88 21:43:00 Test Item Value Reference Range Interpretation Comments RBC Morph (test code = Normal (10/04/16 4:43 RBC Morph) PM) [facility] HospitalCevdykkWLDLNPHRXA3011-93-15 21:43:00 Test Item Value Reference Range Interpretation Comments K-time Rapid (test code = K-time 1.4 min 0.6-2.3 Rapid) [facility] HospitalIeipubbMNDAIQAASS7396-63-99 21:43:00 Test Item Value Reference Range Interpretation Comments Estimated % Lysis Rapid 4.6 See_Comment [Au tomated message] The (test code = Estimated syste m which generated % Lysis Rapid) this result t ransmitted reference range : <=7.5. The reference r morales was not used to int erpret this result as normal/abnormal . [facility] HospitalPtovvnmDUSGLZSKMC8280-43-73 21:43:00 Test Item Value Reference Range Interpretation Comments G-value Rapid (test code = G-value 7.6 5.0-11.6 Rapid) [facility] HospitalTgeeowgYOMEKKIDMQ8874-91-53 21:43:00 Test Item Value Reference Range Interpretation Comments Max Amplitude Rapid (test code = Max 61 mm 52-71 Amplitude Rapid) [facility] HospitalNtyxrrjAJZRAVEZHH9451-72-80 21:43:00 Test Item Value Reference Range Interpretation Comments Angle Rapid (test code = Angle 70 degrees 64-80 Rapid) [facility] HospitalNhgghklQTHQGTXAHW0642-90-67 21:43:00 Test Item Value Reference Range Interpretation Comments R-time Rapid (test code = R-time 1.2 min 0.4-0.7 Rapid) [facility] HospitalWvjvfowUZZOLNTHYQ6985-63-55 21:43:00 Test Item Value Reference Range Interpretation Comments Split Point Rapid (test code = Split 0.8 min Point Rapid) [facility] HospitalYixnpteDTSJDNSUDP1373-49-66 21:43:00 Test Item Value Reference Range Interpretation Comments ACT (TEG) Rapid (test code = ACT (TEG) 160 s 86-118 Rapid) [facility] HospitalGxkgsllIGBAFJZCGJ8618-81-45 21:43:00 Test Item Value Reference Range Interpretation Comments Fibrinogen Lvl (test code = Fibrinogen 284 230-510 Lvl) [facility] HospitalRmbkmzaISIKKULHNI1103-76-51 21:43:00 Test Item Value Reference Range Interpretation Comments PTT (test code = PTT) 25.2 s 22.9-35.8 [facility] HospitalTzjpfpiUVWZOPGQWN3005-71-64 21:43:00 Test Item Value Reference Range Interpretation Comments INR (test code = INR) 0.94 0.85-1.17 [facility] HospitalRdsussjHHZTFGICFZ1495-37-76 21:43:00 Test Item Value Reference Range Interpretation Comments PT (test code = PT) 12.8 s 12.0-14.7 [facility] HospitalBdxhzphQYPRRKGFKE8858-05-04 21:43:00 Test Item Value Reference Range Interpretation Comments MPV (test code = MPV) 8.6 7.4-10.4 [facility] HospitalIftwiubBFJDVNPJFL2149-18-03 21:43:00 Test Item Value Reference Range Interpretation Comments Platelet (test code = Platelet) 204 133-450 [facility] HospitalJkuyfnvEJBPQOLJCZ7661-97-99 21:43:00 Test Item Value Reference Range Interpretation Comments RDW (test code = RDW) 13.9 11.5-14.5 [facility] HospitalLegzapcQFRBWHDIOX6699-24-56 21:43:00 Test Item Value Reference Range Interpretation Comments MCHC (test code = MCHC) 32.9 32.0-36.0 [facility] HospitalWrtgmjnVEKBKMJFUQ1076-41-12 21:43:00 Test Item Value Reference Range Interpretation Comments MCH (test code = MCH) 31.9 pg 27.0-31.0 [facility] HospitalLsvrhpmXGYSEUBVIY3567-57-30 21:43:00 Test Item Value Reference Range Interpretation Comments WBC (test code = WBC) 9.0 3.7-10.4 [facility] HospitalEuxcykmKHRIACIURN1295-01-52 21:43:00 Test Item Value Reference Range Interpretation Comments MCV (test code = MCV) 96.8 80.0-98.0 [facility] HospitalRrfhjngPEZUBRNRGV3183-04-19 21:43:00 Test Item Value Reference Range Interpretation Comments Hct (test code = Hct) 38.0 36.0-48.0 [facility] HospitalHezarirSLDOGELTZR5886-62-36 21:43:00 Test Item Value Reference Range Interpretation Comments Hgb (test code = Hgb) 12.5 12.0-16.0 [facility] HospitalDhxflczDZFNTNBNAH8928-09-51 21:43:00 Test Item Value Reference Range Interpretation Comments RBC (test code = RBC) 3.92 4.20-5.40 [facility] HospitalYtgocupOHFKVETBSE4852-54-07 21:43:00 Test Item Value Reference Range Interpretation Comments Monocytes # (test code 0.1 See_Comment [Aut omated message] The = Monocytes #) system which generated this result tra nsmitted reference range : <=0.8. The reference r morales was not used to int erpret this result as normal/abnormal . [facility] HospitalVbzhiuhNDJCPEQFKT7273-52-33 21:43:00 Test Item Value Reference Range Interpretation Comments Anisocyte (test code = 1+ *ABN*(10/04/16 Anisocyte) 4:43 PM) [facility] HospitalSfylvqkPRDEQUJFSB1559-78-03 21:43:00 Test Item Value Reference Range Interpretation Comments Lymphocytes # (test code = Lymphocytes 0.2 1.0-5.5 #) [facility] HospitalBpproocFVRSDFUVUD7107-75-20 21:43:00 Test Item Value Reference Range Interpretation Comments Segs-Bands # (test code = Segs-Bands #) 8.7 1.5-8.1 [facility] HospitalYgphhfsMOBMWHQJNC0432-69-18 21:43:00 Test Item Value Reference Range Interpretation Comments Basophils (test code = 0.1 See_Comment [Aut omated message] The Basophils) system which ge nerated this result tra nsmitted reference range : <=1.0. The reference r morales was not used to int erpret this result as normal/abnormal . [facility] HospitalLvekzygAHGBFJGKSA5753-60-49 21:43:00 Test Item Value Reference Range Interpretation Comments Lymphocytes (test code = Lymphocytes) 2.0 20.0-40.0 [facility] HospitalLzztxosPTDHOBHTDH3221-89-86 21:43:00 Test Item Value Reference Range Interpretation Comments Monocytes (test code = Monocytes) 1.4 2.0-12.0 [facility] HospitalKqviqzjNBNBOYAQJY0042-43-62 21:43:00 Test Item Value Reference Range Interpretation Comments Segs (test code = Segs) 96.5 45.0-75.0 [facility] HospitalVdjmqwiXKIQBOZYCO4683-30-99 21:43:00 Test Item Value Reference Range Interpretation Comments Plt Morph (test code = Normal (10/04/16 4:43 Plt Morph) PM) [facility] HospitalIowgzhpJMZPYONDQU6580-88-79 21:43:00 Test Item Value Reference Range Interpretation Comments RBC Morph (test code = Normal (10/04/16 4:43 RBC Morph) PM) [facility] HospitalDumcbiaVFVYMKCBXF6542-65-11 21:43:00 Test Item Value Reference Range Interpretation Comments K-time Rapid (test code = K-time 1.4 min 0.6-2.3 Rapid) [facility] HospitalKqfelejRDRJHHMDVX9724-49-72 21:43:00 Test Item Value Reference Range Interpretation Comments Estimated % Lysis Rapid 4.6 See_Comment [Au tomated message] The (test code = Estimated syste m which generated % Lysis Rapid) this result t ransmitted reference range : <=7.5. The reference r morales was not used to int erpret this result as normal/abnormal . [facility] HospitalLtfvualMKMQUEFOTV7461-23-39 21:43:00 Test Item Value Reference Range Interpretation Comments G-value Rapid (test code = G-value 7.6 5.0-11.6 Rapid) [facility] HospitalPylwjxbXECEHHFCAY0017-26-28 21:43:00 Test Item Value Reference Range Interpretation Comments Max Amplitude Rapid (test code = Max 61 mm 52-71 Amplitude Rapid) [facility] HospitalDxkhmvvIXQLNGHTDA2425-19-69 21:43:00 Test Item Value Reference Range Interpretation Comments Angle Rapid (test code = Angle 70 degrees 64-80 Rapid) [facility] HospitalZzprxbiTDJWXORHYI9848-03-56 21:43:00 Test Item Value Reference Range Interpretation Comments R-time Rapid (test code = R-time 1.2 min 0.4-0.7 Rapid) [facility] HospitalWsgccyyHESTFWRKWU7766-59-94 21:43:00 Test Item Value Reference Range Interpretation Comments Split Point Rapid (test code = Split 0.8 min Point Rapid) [facility] HospitalPyoodcwVJLQHTFOWU2043-40-02 21:43:00 Test Item Value Reference Range Interpretation Comments ACT (TEG) Rapid (test code = ACT (TEG) 160 s 86-118 Rapid) [facility] HospitalOektgivEJSDFCPGNX3416-28-92 21:43:00 Test Item Value Reference Range Interpretation Comments Fibrinogen Lvl (test code = Fibrinogen 284 230-510 Lvl) [facility] HospitalMguvxkvCDAZVEHQWM8393-16-33 21:43:00 Test Item Value Reference Range Interpretation Comments PTT (test code = PTT) 25.2 s 22.9-35.8 [facility] HospitalBricknpQQRZWLJBGX9299-45-66 21:43:00 Test Item Value Reference Range Interpretation Comments INR (test code = INR) 0.94 0.85-1.17 [facility] HospitalAstlsnzEQNMNAGEMI1654-21-66 21:43:00 Test Item Value Reference Range Interpretation Comments PT (test code = PT) 12.8 s 12.0-14.7 [facility] HospitalFqfdcgpMJEUMGGZAA0465-91-20 21:43:00 Test Item Value Reference Range Interpretation Comments MPV (test code = MPV) 8.6 7.4-10.4 [facility] HospitalIbpnsicSZHYHXVICF6283-48-11 21:43:00 Test Item Value Reference Range Interpretation Comments Platelet (test code = Platelet) 204 133-450 [facility] HospitalXfketygVRPYBSWWTD7942-37-63 21:43:00 Test Item Value Reference Range Interpretation Comments RDW (test code = RDW) 13.9 11.5-14.5 [facility] HospitalYsdylibURMLRKPMYO7839-49-41 21:43:00 Test Item Value Reference Range Interpretation Comments MCHC (test code = MCHC) 32.9 32.0-36.0 [facility] HospitalCifnixvWEGONQPTKX6184-66-85 21:43:00 Test Item Value Reference Range Interpretation Comments MCH (test code = MCH) 31.9 pg 27.0-31.0 [facility] HospitalEhwmfyeUPMTHZPLRJ3502-60-96 21:43:00 Test Item Value Reference Range Interpretation Comments WBC (test code = WBC) 9.0 3.7-10.4 [facility] HospitalXufpjzwWZCIWQZJII1863-58-05 21:43:00 Test Item Value Reference Range Interpretation Comments MCV (test code = MCV) 96.8 80.0-98.0 [facility] HospitalUjyiezxXAYJDPSZJW0954-33-47 21:43:00 Test Item Value Reference Range Interpretation Comments Hct (test code = Hct) 38.0 36.0-48.0 [facility] HospitalOmifqdlPDRWIJPLTY6039-81-68 21:43:00 Test Item Value Reference Range Interpretation Comments Hgb (test code = Hgb) 12.5 12.0-16.0 [facility] HospitalLghlqveKLQCBZXIED7857-72-48 21:43:00 Test Item Value Reference Range Interpretation Comments RBC (test code = RBC) 3.92 4.20-5.40 [facility] HospitalRrwlnduXQVENXWTIG0602-25-76 21:43:00 Test Item Value Reference Range Interpretation Comments Monocytes # (test code 0.1 See_Comment [Aut omated message] The = Monocytes #) system which generated this result tra nsmitted reference range : <=0.8. The reference r morales was not used to int erpret this result as normal/abnormal . [facility] HospitalQwwibaqZPNQFTRAWE4451-48-09 21:43:00 Test Item Value Reference Range Interpretation Comments Anisocyte (test code = 1+ *ABN*(10/04/16 Anisocyte) 4:43 PM) [facility] HospitalIoxfmwrFMOUWGCKGX1273-65-01 21:43:00 Test Item Value Reference Range Interpretation Comments Lymphocytes # (test code = Lymphocytes 0.2 1.0-5.5 #) [facility] HospitalVokeegfUIFMBDMZNL6359-86-68 21:43:00 Test Item Value Reference Range Interpretation Comments Segs-Bands # (test code = Segs-Bands #) 8.7 1.5-8.1 [facility] HospitalIxbfyitKRUQYNNRWV3888-88-51 21:43:00 Test Item Value Reference Range Interpretation Comments Basophils (test code = 0.1 See_Comment [Aut omated message] The Basophils) system which ge nerated this result tra nsmitted reference range : <=1.0. The reference r morales was not used to int erpret this result as normal/abnormal . [facility] HospitalJruuujtGJZNTVIRXI3370-70-63 21:43:00 Test Item Value Reference Range Interpretation Comments Lymphocytes (test code = Lymphocytes) 2.0 20.0-40.0 [facility] HospitalXrvmkwkKLQSFFQHLO8024-60-58 21:43:00 Test Item Value Reference Range Interpretation Comments Monocytes (test code = Monocytes) 1.4 2.0-12.0 [facility] HospitalOjnvajjMSUUCIHWCP3417-67-45 21:43:00 Test Item Value Reference Range Interpretation Comments Segs (test code = Segs) 96.5 45.0-75.0 [facility] HospitalSixvgkeQPCLNPVVVM8847-73-11 21:43:00 Test Item Value Reference Range Interpretation Comments Plt Morph (test code = Normal (10/04/16 4:43 Plt Morph) PM) [facility] HospitalTfiibqxMBWDUZWDFC9947-23-13 21:43:00 Test Item Value Reference Range Interpretation Comments RBC Morph (test code = Normal (10/04/16 4:43 RBC Morph) PM) [facility] HospitalHemmkijJEKNBLCZFW0086-49-02 19:50:00 Test Item Value Reference Range Interpretation Comments Estimated % Lysis Rapid 2.0 See_Comment [Au tomated message] The (test code = Estimated syste m which generated % Lysis Rapid) this result t ransmitted reference range : <=7.5. The reference r morales was not used to int erpret this result as normal/abnormal . [facility] HospitalHazzcqrMGVDPRJUAV5737-28-44 19:50:00 Test Item Value Reference Range Interpretation Comments G-value Rapid (test code = G-value 8.1 5.0-11.6 Rapid) [facility] HospitalLnrktodEBRCMESPOA8259-90-21 19:50:00 Test Item Value Reference Range Interpretation Comments Max Amplitude Rapid (test code = Max 62 mm 52-71 Amplitude Rapid) [facility] HospitalJyyyzrpPKTFXSJKNK9184-12-56 19:50:00 Test Item Value Reference Range Interpretation Comments R-time Rapid (test code = R-time 0.9 min 0.4-0.7 Rapid) [facility] HospitalOdeimwgHISAMPSCNU1058-16-79 19:50:00 Test Item Value Reference Range Interpretation Comments Split Point Rapid (test code = Split 0.7 min Point Rapid) [facility] HospitalHcocprzZNSELAMDVA4994-26-62 19:50:00 Test Item Value Reference Range Interpretation Comments ACT (TEG) Rapid (test code = ACT (TEG) 136 s 86-118 Rapid) [facility] HospitalKwigkwdDMRHCFIJFC8436-31-54 19:50:00 Test Item Value Reference Range Interpretation Comments Angle Rapid (test code = Angle 67 degrees 64-80 Rapid) [facility] HospitalVoevzrfQFBTTJUSCF0137-89-67 19:50:00 Test Item Value Reference Range Interpretation Comments K-time Rapid (test code = K-time 1.8 min 0.6-2.3 Rapid) [facility] HospitalJnpzwymRXRMEYUFZV6980-07-85 19:50:00 Test Item Value Reference Range Interpretation Comments Fibrinogen Lvl (test code = Fibrinogen 279 230-510 Lvl) [facility] HospitalIifoxrrXLUXVBIKRA6732-72-26 19:50:00 Test Item Value Reference Range Interpretation Comments PTT (test code = PTT) 24.7 s 22.9-35.8 [facility] HospitalWczsdqwVMYJOYZSNL6553-67-41 19:50:00 Test Item Value Reference Range Interpretation Comments INR (test code = INR) 0.92 0.85-1.17 [facility] HospitalXkewxztNCBCMYFCGM3020-28-29 19:50:00 Test Item Value Reference Range Interpretation Comments Estimated % Lysis Rapid 2.0 See_Comment [Au tomated message] The (test code = Estimated syste m which generated % Lysis Rapid) this result t ransmitted reference range : <=7.5. The reference r morales was not used to int erpret this result as normal/abnormal . [facility] HospitalNtkkiapIVPOPOLXDG0246-48-79 19:50:00 Test Item Value Reference Range Interpretation Comments G-value Rapid (test code = G-value 8.1 5.0-11.6 Rapid) [facility] HospitalLxyvwrxPMFDOIOVUV8922-11-72 19:50:00 Test Item Value Reference Range Interpretation Comments Max Amplitude Rapid (test code = Max 62 mm 52-71 Amplitude Rapid) [facility] HospitalJdsqhwfOKFJKYMXQB7286-23-82 19:50:00 Test Item Value Reference Range Interpretation Comments R-time Rapid (test code = R-time 0.9 min 0.4-0.7 Rapid) [facility] HospitalDdfzeqwOWKGKPIUJW0169-32-84 19:50:00 Test Item Value Reference Range Interpretation Comments Split Point Rapid (test code = Split 0.7 min Point Rapid) [facility] HospitalHqkxwqvHXMMTUAMJA2019-13-27 19:50:00 Test Item Value Reference Range Interpretation Comments ACT (TEG) Rapid (test code = ACT (TEG) 136 s 86-118 Rapid) [facility] HospitalJrebvdqZNPUBJDZQX7394-35-64 19:50:00 Test Item Value Reference Range Interpretation Comments Angle Rapid (test code = Angle 67 degrees 64-80 Rapid) [facility] HospitalBpjksjlKPXDAFYRTR0099-16-10 19:50:00 Test Item Value Reference Range Interpretation Comments K-time Rapid (test code = K-time 1.8 min 0.6-2.3 Rapid) [facility] HospitalTgmuvnoBVKSUETSIW6327-17-64 19:50:00 Test Item Value Reference Range Interpretation Comments Fibrinogen Lvl (test code = Fibrinogen 279 230-510 Lvl) [facility] HospitalPllmddbZKVQPKGSKU4938-47-19 19:50:00 Test Item Value Reference Range Interpretation Comments PTT (test code = PTT) 24.7 s 22.9-35.8 [facility] HospitalTvjxolrIQXFKVEMQU6172-30-02 19:50:00 Test Item Value Reference Range Interpretation Comments PT (test code = PT) 12.6 s 12.0-14.7 [facility] HospitalBdkvwbqZYSQBXCBJG9899-33-19 19:50:00 Test Item Value Reference Range Interpretation Comments INR (test code = INR) 0.92 0.85-1.17 [facility] HospitalNzwrnltCNFWGNZVXM9218-41-88 19:50:00 Test Item Value Reference Range Interpretation Comments PT (test code = PT) 12.6 s 12.0-14.7 [facility] HospitalMynwvlzIBXQTZEKDO3523-02-66 19:50:00 Test Item Value Reference Range Interpretation Comments Estimated % Lysis Rapid 2.0 See_Comment [Au tomated message] The (test code = Estimated syste m which generated % Lysis Rapid) this result t ransmitted reference range : <=7.5. The reference r morales was not used to int erpret this result as normal/abnormal . [facility] HospitalIbafyhuGANGYEURHE7357-81-67 19:50:00 Test Item Value Reference Range Interpretation Comments G-value Rapid (test code = G-value 8.1 5.0-11.6 Rapid) [facility] HospitalXqcagvxMLSPVUHFDF7575-31-66 19:50:00 Test Item Value Reference Range Interpretation Comments Max Amplitude Rapid (test code = Max 62 mm 52-71 Amplitude Rapid) [facility] HospitalAxgtvvpIPCNZZDQQY0273-21-65 19:50:00 Test Item Value Reference Range Interpretation Comments R-time Rapid (test code = R-time 0.9 min 0.4-0.7 Rapid) [facility] HospitalFglsvzaYOCIHUCWWK3264-50-23 19:50:00 Test Item Value Reference Range Interpretation Comments Split Point Rapid (test code = Split 0.7 min Point Rapid) [facility] HospitalIaafomoHKWYCLQHRL7791-79-25 19:50:00 Test Item Value Reference Range Interpretation Comments ACT (TEG) Rapid (test code = ACT (TEG) 136 s 86-118 Rapid) [facility] HospitalTzdfdpsIVTJIVZOUA7736-47-00 19:50:00 Test Item Value Reference Range Interpretation Comments Angle Rapid (test code = Angle 67 degrees 64-80 Rapid) [facility] HospitalEvgjpgnHHPVESPSZO7025-56-05 19:50:00 Test Item Value Reference Range Interpretation Comments K-time Rapid (test code = K-time 1.8 min 0.6-2.3 Rapid) [facility] HospitalVglnbcxDZLMPHPIAA5257-39-31 19:50:00 Test Item Value Reference Range Interpretation Comments Fibrinogen Lvl (test code = Fibrinogen 279 230-510 Lvl) [facility] HospitalYjcbscqBTUXCKSKKF8752-46-40 19:50:00 Test Item Value Reference Range Interpretation Comments PTT (test code = PTT) 24.7 s 22.9-35.8 [facility] HospitalSbhegntIQJQWCEPJO0694-40-70 19:50:00 Test Item Value Reference Range Interpretation Comments INR (test code = INR) 0.92 0.85-1.17 [facility] HospitalObfjxuwOIKGYRSDBC2043-40-51 19:50:00 Test Item Value Reference Range Interpretation Comments PT (test code = PT) 12.6 s 12.0-14.7 [facility] HospitalKfxdvgxXSUBQIVITZ9592-20-17 19:50:00 Test Item Value Reference Range Interpretation Comments Estimated % Lysis Rapid 2.0 See_Comment [Au tomated message] The (test code = Estimated syste m which generated % Lysis Rapid) this result t ransmitted reference range : <=7.5. The reference r morales was not used to int erpret this result as normal/abnormal . [facility] HospitalDahzrovCLUMCJDRVD7669-72-96 19:50:00 Test Item Value Reference Range Interpretation Comments G-value Rapid (test code = G-value 8.1 5.0-11.6 Rapid) [facility] HospitalItkmfoaTTKLOVJSWC2174-20-07 19:50:00 Test Item Value Reference Range Interpretation Comments Max Amplitude Rapid (test code = Max 62 mm 52-71 Amplitude Rapid) [facility] HospitalJypuicvHMFHXMEUUY1846-37-90 19:50:00 Test Item Value Reference Range Interpretation Comments R-time Rapid (test code = R-time 0.9 min 0.4-0.7 Rapid) [facility] HospitalOmignppWHCSTPTYVF2904-80-52 19:50:00 Test Item Value Reference Range Interpretation Comments Split Point Rapid (test code = Split 0.7 min Point Rapid) [facility] HospitalZmewzceJGKMDJNUBN4400-42-36 19:50:00 Test Item Value Reference Range Interpretation Comments ACT (TEG) Rapid (test code = ACT (TEG) 136 s 86-118 Rapid) [facility] HospitalSwswezyPSFEOTXCKC7469-01-28 19:50:00 Test Item Value Reference Range Interpretation Comments Angle Rapid (test code = Angle 67 degrees 64-80 Rapid) [facility] HospitalHpqrfdnMKQHJVHJYB9883-17-53 19:50:00 Test Item Value Reference Range Interpretation Comments K-time Rapid (test code = K-time 1.8 min 0.6-2.3 Rapid) [facility] HospitalKvwfnglHMUNWAFCZL5533-57-97 19:50:00 Test Item Value Reference Range Interpretation Comments Fibrinogen Lvl (test code = Fibrinogen 279 230-510 Lvl) [facility] HospitalXjognchCTLFONRBPC9179-61-70 19:50:00 Test Item Value Reference Range Interpretation Comments PTT (test code = PTT) 24.7 s 22.9-35.8 [facility] HospitalUuasurcTPKIDBLGKX2859-70-98 19:50:00 Test Item Value Reference Range Interpretation Comments INR (test code = INR) 0.92 0.85-1.17 [facility] HospitalAekknxjDOGDSHPENY1794-41-51 19:50:00 Test Item Value Reference Range Interpretation Comments PT (test code = PT) 12.6 s 12.0-14.7 [facility] HospitalSygqmmzYHCJUMYORX9290-90-00 19:50:00 Test Item Value Reference Range Interpretation Comments Estimated % Lysis Rapid 2.0 See_Comment [Au tomated message] The (test code = Estimated syste m which generated % Lysis Rapid) this result t ransmitted reference range : <=7.5. The reference r morales was not used to int erpret this result as normal/abnormal . [facility] HospitalDgrpegnSYKJYSWAMF9831-22-88 19:50:00 Test Item Value Reference Range Interpretation Comments G-value Rapid (test code = G-value 8.1 5.0-11.6 Rapid) [facility] HospitalKjouwrcOGKUTHNMHM7153-91-64 19:50:00 Test Item Value Reference Range Interpretation Comments Max Amplitude Rapid (test code = Max 62 mm 52-71 Amplitude Rapid) [facility] HospitalSflzkfiVGLSGTMMMV7581-05-13 19:50:00 Test Item Value Reference Range Interpretation Comments R-time Rapid (test code = R-time 0.9 min 0.4-0.7 Rapid) [facility] HospitalIpmvzxtSLBJLVZWBW6871-32-58 19:50:00 Test Item Value Reference Range Interpretation Comments Split Point Rapid (test code = Split 0.7 min Point Rapid) [facility] HospitalXnixbdqSFGPRUFXPY0999-26-28 19:50:00 Test Item Value Reference Range Interpretation Comments ACT (TEG) Rapid (test code = ACT (TEG) 136 s 86-118 Rapid) [facility] HospitalHzrpqckVIALHUGTSF9241-18-09 19:50:00 Test Item Value Reference Range Interpretation Comments Angle Rapid (test code = Angle 67 degrees 64-80 Rapid) [facility] HospitalCpywceuWWVEETIEID3687-14-15 19:50:00 Test Item Value Reference Range Interpretation Comments K-time Rapid (test code = K-time 1.8 min 0.6-2.3 Rapid) [facility] HospitalRfstszgVLQRNNTBWE7476-54-65 19:50:00 Test Item Value Reference Range Interpretation Comments Fibrinogen Lvl (test code = Fibrinogen 279 230-510 Lvl) [facility] HospitalVpydldoSTQYTCMMIQ8839-13-24 19:50:00 Test Item Value Reference Range Interpretation Comments PTT (test code = PTT) 24.7 s 22.9-35.8 [facility] HospitalBulkzarCTMXBPNTOB9966-93-90 19:50:00 Test Item Value Reference Range Interpretation Comments INR (test code = INR) 0.92 0.85-1.17 [facility] HospitalMlwdmewQEGZVPKKMM8427-55-06 19:50:00 Test Item Value Reference Range Interpretation Comments PT (test code = PT) 12.6 s 12.0-14.7 [facility] HospitalEqiakgaAIMPVWLZRN0609-63-18 19:50:00 Test Item Value Reference Range Interpretation Comments Estimated % Lysis Rapid 2.0 See_Comment [Au tomated message] The (test code = Estimated syste m which generated % Lysis Rapid) this result t ransmitted reference range : <=7.5. The reference r morales was not used to int erpret this result as normal/abnormal . [facility] HospitalNumxlghHIXMFFBFBA4072-28-57 19:50:00 Test Item Value Reference Range Interpretation Comments G-value Rapid (test code = G-value 8.1 5.0-11.6 Rapid) [facility] HospitalJqquihvGUOFPEBDUN6858-28-64 19:50:00 Test Item Value Reference Range Interpretation Comments Max Amplitude Rapid (test code = Max 62 mm 52-71 Amplitude Rapid) [facility] HospitalXhywrilJTWTQAEDUH9972-33-02 19:50:00 Test Item Value Reference Range Interpretation Comments R-time Rapid (test code = R-time 0.9 min 0.4-0.7 Rapid) [facility] HospitalCiexojmTQVWGJGMFC2667-08-33 19:50:00 Test Item Value Reference Range Interpretation Comments Split Point Rapid (test code = Split 0.7 min Point Rapid) [facility] HospitalVgycpuwIUNNHRKGVT9881-44-41 19:50:00 Test Item Value Reference Range Interpretation Comments ACT (TEG) Rapid (test code = ACT (TEG) 136 s 86-118 Rapid) [place] [id number] 19:50:00 Test Item Value Reference Range Interpretation Comments Angle Rapid (test code = Angle 67 degrees 64-80 Rapid) [facility] HospitalHboluqnEZWGNSGJLC6806-71-59 19:50:00 Test Item Value Reference Range Interpretation Comments K-time Rapid (test code = K-time 1.8 min 0.6-2.3 Rapid) [facility] HospitalSdivtwfPKINNFEQQK4592-60-93 19:50:00 Test Item Value Reference Range Interpretation Comments Fibrinogen Lvl (test code = Fibrinogen 279 230-510 Lvl) [facility] HospitalTyliomiBOHNHMPJOD9308-43-94 19:50:00 Test Item Value Reference Range Interpretation Comments PTT (test code = PTT) 24.7 s 22.9-35.8 [facility] HospitalYxcugvfBKMBNAKWYZ0069-31-54 19:50:00 Test Item Value Reference Range Interpretation Comments INR (test code = INR) 0.92 0.85-1.17 [facility] HospitalHqpcjojZRBIKDDIBN8637-35-17 19:50:00 Test Item Value Reference Range Interpretation Comments PT (test code = PT) 12.6 s 12.0-14.7 [facility] HospitalBswsmidHLWAXNGAXC1437-20-69 19:50:00 Test Item Value Reference Range Interpretation Comments Estimated % Lysis Rapid 2.0 See_Comment [Au tomated message] The (test code = Estimated syste m which generated % Lysis Rapid) this result t ransmitted reference range : <=7.5. The reference r morales was not used to int erpret this result as normal/abnormal . [facility] HospitalFmunjsbSRBEUTWIZZ8124-27-15 19:50:00 Test Item Value Reference Range Interpretation Comments G-value Rapid (test code = G-value 8.1 5.0-11.6 Rapid) [facility] HospitalWazqqwyZPPPVFVSMI6105-97-97 19:50:00 Test Item Value Reference Range Interpretation Comments Max Amplitude Rapid (test code = Max 62 mm 52-71 Amplitude Rapid) [facility] HospitalQykdqxvVNAMTSPODH7506-65-58 19:50:00 Test Item Value Reference Range Interpretation Comments R-time Rapid (test code = R-time 0.9 min 0.4-0.7 Rapid) [facility] HospitalTyapcwmABEFZWJPUK6979-54-87 19:50:00 Test Item Value Reference Range Interpretation Comments Split Point Rapid (test code = Split 0.7 min Point Rapid) [facility] HospitalPemdfcnQRXLATAQUB8169-80-06 19:50:00 Test Item Value Reference Range Interpretation Comments ACT (TEG) Rapid (test code = ACT (TEG) 136 s 86-118 Rapid) [facility] HospitalGopedcwAVIWJDPAVZ4589-63-70 19:50:00 Test Item Value Reference Range Interpretation Comments Angle Rapid (test code = Angle 67 degrees 64-80 Rapid) [facility] HospitalFqsvrdeYAMZGUPXJK1070-52-68 19:50:00 Test Item Value Reference Range Interpretation Comments K-time Rapid (test code = K-time 1.8 min 0.6-2.3 Rapid) [facility] HospitalYgjmwusKPZMFQCHHB2979-35-09 19:50:00 Test Item Value Reference Range Interpretation Comments Fibrinogen Lvl (test code = Fibrinogen 279 230-510 Lvl) [facility] HospitalJedutmeRSOHVDMAPM7436-60-56 19:50:00 Test Item Value Reference Range Interpretation Comments PTT (test code = PTT) 24.7 s 22.9-35.8 [facility] HospitalFblwvlwNPEWIHMMZI4157-03-66 19:50:00 Test Item Value Reference Range Interpretation Comments INR (test code = INR) 0.92 0.85-1.17 [facility] HospitalYvwdqwkJZILBUMEDW8627-19-81 19:50:00 Test Item Value Reference Range Interpretation Comments PT (test code = PT) 12.6 s 12.0-14.7 [facility] HospitalIqtuzqbACMPKEPWIL9726-27-95 19:50:00 Test Item Value Reference Range Interpretation Comments Estimated % Lysis Rapid 2.0 See_Comment [Au tomated message] The (test code = Estimated syste m which generated % Lysis Rapid) this result t ransmitted reference range : <=7.5. The reference r morales was not used to int erpret this result as normal/abnormal . [facility] HospitalQwkqacvEZRHNKDNWH8869-93-09 19:50:00 Test Item Value Reference Range Interpretation Comments G-value Rapid (test code = G-value 8.1 5.0-11.6 Rapid) [facility] HospitalNnhukveHRVCWDFBSZ5259-88-57 19:50:00 Test Item Value Reference Range Interpretation Comments Max Amplitude Rapid (test code = Max 62 mm 52-71 Amplitude Rapid) [facility] HospitalXjaddbeMSRMBNDNTH1859-66-36 19:50:00 Test Item Value Reference Range Interpretation Comments R-time Rapid (test code = R-time 0.9 min 0.4-0.7 Rapid) [facility] HospitalCataizdFUINWTROGL5912-99-13 19:50:00 Test Item Value Reference Range Interpretation Comments Split Point Rapid (test code = Split 0.7 min Point Rapid) [facility] HospitalOoldlzlYVURQBCJEG8770-82-34 19:50:00 Test Item Value Reference Range Interpretation Comments ACT (TEG) Rapid (test code = ACT (TEG) 136 s 86-118 Rapid) [facility] HospitalNgcktpiHIVQKARGDX8927-59-68 19:50:00 Test Item Value Reference Range Interpretation Comments Angle Rapid (test code = Angle 67 degrees 64-80 Rapid) [facility] HospitalVjhudtsYKBKIXQOMB7576-23-15 19:50:00 Test Item Value Reference Range Interpretation Comments K-time Rapid (test code = K-time 1.8 min 0.6-2.3 Rapid) [facility] HospitalVfmbirpNRFDDUCMTK4021-54-43 19:50:00 Test Item Value Reference Range Interpretation Comments Fibrinogen Lvl (test code = Fibrinogen 279 230-510 Lvl) [facility] HospitalIuvhlifUGXAFQMEUI5008-97-61 19:50:00 Test Item Value Reference Range Interpretation Comments PTT (test code = PTT) 24.7 s 22.9-35.8 [facility] HospitalDzrfnuzLFEFLSQOFD7356-99-92 19:50:00 Test Item Value Reference Range Interpretation Comments INR (test code = INR) 0.92 0.85-1.17 [facility] HospitalPuelovsEECKQDEYHI5988-50-81 19:50:00 Test Item Value Reference Range Interpretation Comments PT (test code = PT) 12.6 s 12.0-14.7 [facility] HospitalCnaxrnbHLCFSQVKBV8762-17-61 19:29:00 Test Item Value Reference Range Interpretation Comments RBC (test code = RBC) 4.24 4.20-5.40 [facility] HospitalOtoljgwBVXMWXLNPO7394-55-34 19:29:00 Test Item Value Reference Range Interpretation Comments Hct (test code = Hct) 40.8 36.0-48.0 [facility] HospitalAibzqkeNJYHHVIGLO9162-63-95 19:29:00 Test Item Value Reference Range Interpretation Comments Hgb (test code = Hgb) 13.4 12.0-16.0 [facility] HospitalGlrmkqiLIPWAZXRXM6545-45-75 19:29:00 Test Item Value Reference Range Interpretation Comments WBC (test code = WBC) 12.2 3.7-10.4 [facility] HospitalLxredraVTKGQLLLZJ0709-80-94 19:29:00 Test Item Value Reference Range Interpretation Comments MPV (test code = MPV) 8.7 7.4-10.4 [facility] HospitalTdzgwerOLHHHHABKC6173-48-52 19:29:00 Test Item Value Reference Range Interpretation Comments Platelet (test code = Platelet) 216 133-450 [facility] HospitalDdbyhbdRABKXSTZMY0392-39-77 19:29:00 Test Item Value Reference Range Interpretation Comments MCH (test code = MCH) 31.7 pg 27.0-31.0 [facility] HospitalMzbbzayNCMUIAHEMO5388-90-56 19:29:00 Test Item Value Reference Range Interpretation Comments MCV (test code = MCV) 96.2 80.0-98.0 [facility] HospitalQitalohXGBIXBDHAF3854-64-41 19:29:00 Test Item Value Reference Range Interpretation Comments RBC (test code = RBC) 4.24 4.20-5.40 [facility] HospitalKsjyzwlTCALOOUWHC0838-44-40 19:29:00 Test Item Value Reference Range Interpretation Comments MCHC (test code = MCHC) 33.0 32.0-36.0 [facility] HospitalXhqjfolDTXWNTICJW0217-22-68 19:29:00 Test Item Value Reference Range Interpretation Comments RDW (test code = RDW) 13.8 11.5-14.5 [facility] HospitalPrasenkYXLCRFANMG3226-24-02 19:29:00 Test Item Value Reference Range Interpretation Comments Lymphocytes (test code = Lymphocytes) 2.2 20.0-40.0 [facility] HospitalJfaablkVDKVATUDEO5807-93-41 19:29:00 Test Item Value Reference Range Interpretation Comments Segs (test code = Segs) 94.4 45.0-75.0 [facility] HospitalSjaeguqSGQKUUYAQN0052-87-74 19:29:00 Test Item Value Reference Range Interpretation Comments Monocytes (test code = Monocytes) 3.0 2.0-12.0 [facility] HospitalOtfgcqaNVMWVMDXYD0549-40-11 19:29:00 Test Item Value Reference Range Interpretation Comments Basophils (test code = 0.3 See_Comment [Aut omated message] The Basophils) system which ge nerated this result tra nsmitted reference range : <=1.0. The reference r morales was not used to int erpret this result as normal/abnormal . [facility] HospitalBjdxkmyRDJUWNKWGW2213-66-95 19:29:00 Test Item Value Reference Range Interpretation Comments Monocytes # (test code 0.4 See_Comment [Aut omated message] The = Monocytes #) system which generated this result tra nsmitted reference range : <=0.8. The reference r morales was not used to int erpret this result as normal/abnormal . [facility] HospitalYojdzmzEECUOMRZFB7498-17-60 19:29:00 Test Item Value Reference Range Interpretation Comments Lymphocytes # (test code = Lymphocytes 0.3 1.0-5.5 #) [facility] HospitalIwqosnhIYUDQSIPHJ3879-15-99 19:29:00 Test Item Value Reference Range Interpretation Comments Eosinophils (test code = 0.1 See_Comment [A utomated message] The Eosinophils) system which ge nerated this result tra nsmitted reference range : <=4.0. The reference r morales was not used to int erpret this result as normal/abnormal . [facility] HospitalYopbghlYNPPWGJMLF1009-90-63 19:29:00 Test Item Value Reference Range Interpretation Comments Segs-Bands # (test code = Segs-Bands #) 11.5 1.5-8.1 [facility] HospitalUvnlnmqJPGWAQKBAA8423-01-02 19:29:00 Test Item Value Reference Range Interpretation Comments Hct (test code = Hct) 40.8 36.0-48.0 [facility] HospitalTtejoslOAWQZWNJRE5401-67-62 19:29:00 Test Item Value Reference Range Interpretation Comments Hgb (test code = Hgb) 13.4 12.0-16.0 [facility] HospitalWnvcmfoYSTQBTNVOI7690-36-09 19:29:00 Test Item Value Reference Range Interpretation Comments WBC (test code = WBC) 12.2 3.7-10.4 [facility] HospitalWagvkdsGDMVCAXBYQ1099-49-20 19:29:00 Test Item Value Reference Range Interpretation Comments MPV (test code = MPV) 8.7 7.4-10.4 [facility] HospitalZzzyqciNJCGIZDRVX6757-28-00 19:29:00 Test Item Value Reference Range Interpretation Comments Platelet (test code = Platelet) 216 133-450 [facility] HospitalRdafwvzJTSIUOCYHA6719-94-39 19:29:00 Test Item Value Reference Range Interpretation Comments MCH (test code = MCH) 31.7 pg 27.0-31.0 [facility] HospitalMadngtdBJADNHXHSX2741-20-09 19:29:00 Test Item Value Reference Range Interpretation Comments MCV (test code = MCV) 96.2 80.0-98.0 [facility] HospitalVbqshybQDGFSZJSHW2327-66-57 19:29:00 Test Item Value Reference Range Interpretation Comments MCHC (test code = MCHC) 33.0 32.0-36.0 [facility] HospitalRegiyycNPYGBJVRLN5586-24-37 19:29:00 Test Item Value Reference Range Interpretation Comments RDW (test code = RDW) 13.8 11.5-14.5 [facility] HospitalVjkctssLADYSZHVBL2176-06-21 19:29:00 Test Item Value Reference Range Interpretation Comments Lymphocytes (test code = Lymphocytes) 2.2 20.0-40.0 [facility] HospitalJblugojDMKDLONFZJ4260-86-51 19:29:00 Test Item Value Reference Range Interpretation Comments Segs (test code = Segs) 94.4 45.0-75.0 [facility] HospitalXpajazhMGCNQYNNPI4860-81-36 19:29:00 Test Item Value Reference Range Interpretation Comments Monocytes (test code = Monocytes) 3.0 2.0-12.0 [facility] HospitalVsekqmkRVXXKNYGBN4252-41-83 19:29:00 Test Item Value Reference Range Interpretation Comments Basophils (test code = 0.3 See_Comment [Aut omated message] The Basophils) system which ge nerated this result tra nsmitted reference range : <=1.0. The reference r morales was not used to int erpret this result as normal/abnormal . [facility] HospitalZkhwslsTEOUDEBRBB1567-95-70 19:29:00 Test Item Value Reference Range Interpretation Comments Monocytes # (test code 0.4 See_Comment [Aut omated message] The = Monocytes #) system which generated this result tra nsmitted reference range : <=0.8. The reference r omrales was not used to int erpret this result as normal/abnormal . [facility] HospitalGnhjfcyVNCLWFXYOJ5354-55-80 19:29:00 Test Item Value Reference Range Interpretation Comments Lymphocytes # (test code = Lymphocytes 0.3 1.0-5.5 #) [facility] HospitalAyknkvdIMUKZGIHZX0132-66-71 19:29:00 Test Item Value Reference Range Interpretation Comments Eosinophils (test code = 0.1 See_Comment [A utomated message] The Eosinophils) system which ge nerated this result tra nsmitted reference range : <=4.0. The reference r morales was not used to int erpret this result as normal/abnormal . [facility] HospitalMmyikgaABXHTOZEKR3838-20-57 19:29:00 Test Item Value Reference Range Interpretation Comments Segs-Bands # (test code = Segs-Bands #) 11.5 1.5-8.1 [facility] HospitalKamhhjjHELNWNVNPL6295-89-81 19:29:00 Test Item Value Reference Range Interpretation Comments RBC (test code = RBC) 4.24 4.20-5.40 [facility] HospitalJearnlfAUZNLDROXX2734-71-10 19:29:00 Test Item Value Reference Range Interpretation Comments Hct (test code = Hct) 40.8 36.0-48.0 [facility] HospitalPbxpnllMWVYFXJXZX1303-54-16 19:29:00 Test Item Value Reference Range Interpretation Comments Hgb (test code = Hgb) 13.4 12.0-16.0 [facility] HospitalOyueaswOAYSJTYYYX6457-36-50 19:29:00 Test Item Value Reference Range Interpretation Comments WBC (test code = WBC) 12.2 3.7-10.4 [facility] HospitalMfwjsttUFUFDPTTHA3874-75-12 19:29:00 Test Item Value Reference Range Interpretation Comments MPV (test code = MPV) 8.7 7.4-10.4 [facility] HospitalHsazvozATOTTRVEVX8223-81-11 19:29:00 Test Item Value Reference Range Interpretation Comments Platelet (test code = Platelet) 216 133-450 [facility] HospitalEgubqlxFYNDPXVNXU1170-81-23 19:29:00 Test Item Value Reference Range Interpretation Comments MCH (test code = MCH) 31.7 pg 27.0-31.0 [facility] HospitalFzdsyosAEROUKBQZH5895-97-63 19:29:00 Test Item Value Reference Range Interpretation Comments MCV (test code = MCV) 96.2 80.0-98.0 [facility] HospitalKisfmiqKHQGBBACWQ8738-31-61 19:29:00 Test Item Value Reference Range Interpretation Comments MCHC (test code = MCHC) 33.0 32.0-36.0 [facility] HospitalEtctskkULPYIYVXZO4681-96-26 19:29:00 Test Item Value Reference Range Interpretation Comments RDW (test code = RDW) 13.8 11.5-14.5 [facility] HospitalVshbbwcCJTDYQNIBM9765-36-15 19:29:00 Test Item Value Reference Range Interpretation Comments Lymphocytes (test code = Lymphocytes) 2.2 20.0-40.0 [facility] HospitalQfkyefaVUVLYVNXFV7273-10-50 19:29:00 Test Item Value Reference Range Interpretation Comments Segs (test code = Segs) 94.4 45.0-75.0 [facility] HospitalOokujacQJDTQSZLHB7341-70-68 19:29:00 Test Item Value Reference Range Interpretation Comments Monocytes (test code = Monocytes) 3.0 2.0-12.0 [facility] HospitalMzfvmanFDGDFAICFD4213-84-45 19:29:00 Test Item Value Reference Range Interpretation Comments Basophils (test code = 0.3 See_Comment [Aut omated message] The Basophils) system which ge nerated this result tra nsmitted reference range : <=1.0. The reference r morales was not used to int erpret this result as normal/abnormal . [facility] HospitalUnrteqfECWFDMSUGB8436-07-34 19:29:00 Test Item Value Reference Range Interpretation Comments Monocytes # (test code 0.4 See_Comment [Aut omated message] The = Monocytes #) system which generated this result tra nsmitted reference range : <=0.8. The reference r morales was not used to int erpret this result as normal/abnormal . [facility] HospitalPtycghwWJYAKOZQGI5458-72-00 19:29:00 Test Item Value Reference Range Interpretation Comments Lymphocytes # (test code = Lymphocytes 0.3 1.0-5.5 #) [facility] HospitalWcgwziyJXXSCLVEEN9778-91-48 19:29:00 Test Item Value Reference Range Interpretation Comments Eosinophils (test code = 0.1 See_Comment [A utomated message] The Eosinophils) system which ge nerated this result tra nsmitted reference range : <=4.0. The reference r morales was not used to int erpret this result as normal/abnormal . [facility] HospitalBpddutfVLXTQZIJSU8233-63-03 19:29:00 Test Item Value Reference Range Interpretation Comments Segs-Bands # (test code = Segs-Bands #) 11.5 1.5-8.1 [facility] HospitalTpaoepdAGMUVFPMTN4476-46-30 19:29:00 Test Item Value Reference Range Interpretation Comments RBC (test code = RBC) 4.24 4.20-5.40 [facility] HospitalYvjdqriGDBXPHUOIP4688-90-37 19:29:00 Test Item Value Reference Range Interpretation Comments Hct (test code = Hct) 40.8 36.0-48.0 [facility] HospitalSdqfteeARGULIRYBB4146-94-21 19:29:00 Test Item Value Reference Range Interpretation Comments Hgb (test code = Hgb) 13.4 12.0-16.0 [facility] HospitalAsvjpwqGLHIZHTNVZ3753-21-34 19:29:00 Test Item Value Reference Range Interpretation Comments WBC (test code = WBC) 12.2 3.7-10.4 [facility] HospitalKyglpmmWBJCHRVXOX6083-37-24 19:29:00 Test Item Value Reference Range Interpretation Comments MPV (test code = MPV) 8.7 7.4-10.4 [facility] HospitalVoeljllEJNHRQCHYP9552-88-23 19:29:00 Test Item Value Reference Range Interpretation Comments Platelet (test code = Platelet) 216 133-450 [facility] HospitalYhggscmBLGXDIGZWE5059-36-32 19:29:00 Test Item Value Reference Range Interpretation Comments MCH (test code = MCH) 31.7 pg 27.0-31.0 [facility] HospitalAntbefvSFMRNNEOKQ3482-43-06 19:29:00 Test Item Value Reference Range Interpretation Comments MCV (test code = MCV) 96.2 80.0-98.0 [facility] HospitalJparzujNQZPFOIXPO7937-02-37 19:29:00 Test Item Value Reference Range Interpretation Comments MCHC (test code = MCHC) 33.0 32.0-36.0 [facility] HospitalTxkmrnaMOHHFGKIOY1913-60-28 19:29:00 Test Item Value Reference Range Interpretation Comments RDW (test code = RDW) 13.8 11.5-14.5 [facility] HospitalYvelbyzMBEFBXRGGQ0284-31-37 19:29:00 Test Item Value Reference Range Interpretation Comments Lymphocytes (test code = Lymphocytes) 2.2 20.0-40.0 [facility] HospitalFszsuriMDRPZJCDOQ7768-07-53 19:29:00 Test Item Value Reference Range Interpretation Comments Segs (test code = Segs) 94.4 45.0-75.0 [facility] HospitalWtzhgkoEDFRNADKDT8402-70-75 19:29:00 Test Item Value Reference Range Interpretation Comments Monocytes (test code = Monocytes) 3.0 2.0-12.0 [facility] HospitalErbaqzzWCRLXPEKSD4121-41-20 19:29:00 Test Item Value Reference Range Interpretation Comments Basophils (test code = 0.3 See_Comment [Aut omated message] The Basophils) system which ge nerated this result tra nsmitted reference range : <=1.0. The reference r morales was not used to int erpret this result as normal/abnormal . [facility]LsfbiheLKQAGXLDGS0355-59-83 19:29:00 Test Item Value Reference Range Interpretation Comments Monocytes # (test code 0.4 See_Comment [Aut omated message] The = Monocytes #) system which generated this result tra nsmitted reference range : <=0.8. The reference r morales was not used to int erpret this result as normal/abnormal . [facility] HospitalZxrvreaTRHSSXAKQI2809-92-64 19:29:00 Test Item Value Reference Range Interpretation Comments Lymphocytes # (test code = Lymphocytes 0.3 1.0-5.5 #) [facility] HospitalTbdagazWDWKTWEGFZ0593-91-95 19:29:00 Test Item Value Reference Range Interpretation Comments Eosinophils (test code = 0.1 See_Comment [A utomated message] The Eosinophils) system which ge nerated this result tra nsmitted reference range : <=4.0. The reference r morales was not used to int erpret this result as normal/abnormal . [facility] HospitalQsebvhiPXDFDZJTXI8315-94-36 19:29:00 Test Item Value Reference Range Interpretation Comments Segs-Bands # (test code = Segs-Bands #) 11.5 1.5-8.1 [facility] HospitalNnkllbvFNCAKDPEOV6227-52-59 19:29:00 Test Item Value Reference Range Interpretation Comments RBC (test code = RBC) 4.24 4.20-5.40 [facility] HospitalBfdnzdvBNZTHKJVEG5470-36-90 19:29:00 Test Item Value Reference Range Interpretation Comments Hct (test code = Hct) 40.8 36.0-48.0 [facility] HospitalDfiimbfXJSCMOLJDQ7183-38-91 19:29:00 Test Item Value Reference Range Interpretation Comments Hgb (test code = Hgb) 13.4 12.0-16.0 [facility] HospitalYpbakarAJRQONWACU6615-71-01 19:29:00 Test Item Value Reference Range Interpretation Comments WBC (test code = WBC) 12.2 3.7-10.4 [facility] HospitalYdiynteSAYXCCFGIR9133-13-88 19:29:00 Test Item Value Reference Range Interpretation Comments MPV (test code = MPV) 8.7 7.4-10.4 [facility] HospitalUnkdfsrZJFZENHGLZ4298-52-05 19:29:00 Test Item Value Reference Range Interpretation Comments Platelet (test code = Platelet) 216 133-450 [facility] HospitalFoghxulMKLIZIXDXS2107-92-46 19:29:00 Test Item Value Reference Range Interpretation Comments MCH (test code = MCH) 31.7 pg 27.0-31.0 [facility] HospitalOvuegjwUVFVDGCBWP2825-84-26 19:29:00 Test Item Value Reference Range Interpretation Comments MCV (test code = MCV) 96.2 80.0-98.0 [facility] HospitalThmywxwCFUQDUVRCG6479-32-76 19:29:00 Test Item Value Reference Range Interpretation Comments MCHC (test code = MCHC) 33.0 32.0-36.0 [facility] HospitalHxlbxiiQJJZYTDUDB6979-46-25 19:29:00 Test Item Value Reference Range Interpretation Comments RDW (test code = RDW) 13.8 11.5-14.5 [facility] HospitalEvczwljPFVPFEEKOV3438-16-07 19:29:00 Test Item Value Reference Range Interpretation Comments Lymphocytes (test code = Lymphocytes) 2.2 20.0-40.0 [facility] HospitalBxsdaaqCOEALHQZMW5817-99-38 19:29:00 Test Item Value Reference Range Interpretation Comments Segs (test code = Segs) 94.4 45.0-75.0 [facility] HospitalZvbxwimPXXRXFDIVE3939-86-82 19:29:00 Test Item Value Reference Range Interpretation Comments Monocytes (test code = Monocytes) 3.0 2.0-12.0 [facility] HospitalBoilvslWZBOEQEGKK3062-81-41 19:29:00 Test Item Value Reference Range Interpretation Comments Basophils (test code = 0.3 See_Comment [Aut omated message] The Basophils) system which ge nerated this result tra nsmitted reference range : <=1.0. The reference r morales was not used to int erpret this result as normal/abnormal . [facility] HospitalMtrlhjvJLOEOVCGOM4924-30-24 19:29:00 Test Item Value Reference Range Interpretation Comments Monocytes # (test code 0.4 See_Comment [Aut omated message] The = Monocytes #) system which generated this result tra nsmitted reference range : <=0.8. The reference r morales was not used to int erpret this result as normal/abnormal . [facility] HospitalQuuxboyWBJXOMWUYV7111-83-18 19:29:00 Test Item Value Reference Range Interpretation Comments Lymphocytes # (test code = Lymphocytes 0.3 1.0-5.5 #) [facility] HospitalAlbhesqURMFFZLRKO9873-31-66 19:29:00 Test Item Value Reference Range Interpretation Comments Eosinophils (test code = 0.1 See_Comment [A utomated message] The Eosinophils) system which ge nerated this result tra nsmitted reference range : <=4.0. The reference r morales was not used to int erpret this result as normal/abnormal . [facility] HospitalEyckycwDHSIQWCVMW7106-29-52 19:29:00 Test Item Value Reference Range Interpretation Comments Segs-Bands # (test code = Segs-Bands #) 11.5 1.5-8.1 [facility] HospitalFbeqajzUMZHRYCGDR9389-78-53 19:29:00 Test Item Value Reference Range Interpretation Comments RBC (test code = RBC) 4.24 4.20-5.40 [facility] HospitalXjsryaeQDUPISMBDM5143-77-44 19:29:00 Test Item Value Reference Range Interpretation Comments Hct (test code = Hct) 40.8 36.0-48.0 [facility] HospitalKlnkoylBQQHAFHDYL0908-65-72 19:29:00 Test Item Value Reference Range Interpretation Comments Hgb (test code = Hgb) 13.4 12.0-16.0 [facility] HospitalUvbfbnoHOQTKXEYTJ0907-61-97 19:29:00 Test Item Value Reference Range Interpretation Comments WBC (test code = WBC) 12.2 3.7-10.4 [facility] HospitalEtokwzgGLZMAHTXAH4364-25-24 19:29:00 Test Item Value Reference Range Interpretation Comments MPV (test code = MPV) 8.7 7.4-10.4 [facility] HospitalCydyaybDFYZULRXUZ2330-77-18 19:29:00 Test Item Value Reference Range Interpretation Comments Platelet (test code = Platelet) 216 133-450 [facility] HospitalPpspvllXFYFJDUAUJ9516-87-39 19:29:00 Test Item Value Reference Range Interpretation Comments MCH (test code = MCH) 31.7 pg 27.0-31.0 [facility] HospitalKcufenmPFJLJHHPDD4585-00-76 19:29:00 Test Item Value Reference Range Interpretation Comments MCV (test code = MCV) 96.2 80.0-98.0 [facility] HospitalOdxkmmgPYGMHCXQLM5321-46-47 19:29:00 Test Item Value Reference Range Interpretation Comments MCHC (test code = MCHC) 33.0 32.0-36.0 [facility] HospitalQhcvwgwOTJVEHWBPM6887-49-36 19:29:00 Test Item Value Reference Range Interpretation Comments RDW (test code = RDW) 13.8 11.5-14.5 [facility] HospitalFwrxzgnJFCBWVXTNC9167-17-62 19:29:00 Test Item Value Reference Range Interpretation Comments Lymphocytes (test code = Lymphocytes) 2.2 20.0-40.0 [facility] HospitalOtezozbRGMFEKLFAG6015-53-34 19:29:00 Test Item Value Reference Range Interpretation Comments Segs (test code = Segs) 94.4 45.0-75.0 [facility] HospitalTpajfkmZWWSOJRWEM4272-50-09 19:29:00 Test Item Value Reference Range Interpretation Comments Monocytes (test code = Monocytes) 3.0 2.0-12.0 [facility] HospitalMtnyrbkZQXFEIQNMU4702-79-89 19:29:00 Test Item Value Reference Range Interpretation Comments Basophils (test code = 0.3 See_Comment [Aut omated message] The Basophils) system which ge nerated this result tra nsmitted reference range : <=1.0. The reference r morales was not used to int erpret this result as normal/abnormal . [facility] HospitalJkxvwecWSVFCDWQGP5324-87-09 19:29:00 Test Item Value Reference Range Interpretation Comments Monocytes # (test code 0.4 See_Comment [Aut omated message] The = Monocytes #) system which generated this result tra nsmitted reference range : <=0.8. The reference r morales was not used to int erpret this result as normal/abnormal . [facility] HospitalIuifyubGJFZMQOMZZ7378-68-35 19:29:00 Test Item Value Reference Range Interpretation Comments Lymphocytes # (test code = Lymphocytes 0.3 1.0-5.5 #) [facility] HospitalXphspkbDABMOWOWQP5419-60-92 19:29:00 Test Item Value Reference Range Interpretation Comments Eosinophils (test code = 0.1 See_Comment [A utomated message] The Eosinophils) system which ge nerated this result tra nsmitted reference range : <=4.0. The reference r morales was not used to int erpret this result as normal/abnormal . [facility] HospitalYtpsjvtGGIBCRARDK0661-19-49 19:29:00 Test Item Value Reference Range Interpretation Comments Segs-Bands # (test code = Segs-Bands #) 11.5 1.5-8.1 [facility] HospitalPdxgkxcBDOSGQATTP1795-62-26 19:29:00 Test Item Value Reference Range Interpretation Comments RBC (test code = RBC) 4.24 4.20-5.40 [facility] HospitalTcntkrzNQVEFWNDAH2166-83-84 19:29:00 Test Item Value Reference Range Interpretation Comments Hct (test code = Hct) 40.8 36.0-48.0 [facility] HospitalEkjsfjqHUZJLDWBEI6619-25-98 19:29:00 Test Item Value Reference Range Interpretation Comments Hgb (test code = Hgb) 13.4 12.0-16.0 [facility] HospitalDudonlvEHVNYIBRAY6959-23-32 19:29:00 Test Item Value Reference Range Interpretation Comments WBC (test code = WBC) 12.2 3.7-10.4 [facility] HospitalEzfkpuyJXSHYWFDDH6816-48-14 19:29:00 Test Item Value Reference Range Interpretation Comments MPV (test code = MPV) 8.7 7.4-10.4 [facility] HospitalSipzdvwSXDZSVSFWN0061-05-71 19:29:00 Test Item Value Reference Range Interpretation Comments Platelet (test code = Platelet) 216 133-450 [facility] HospitalGqigktnTLWNWASTUL6744-76-19 19:29:00 Test Item Value Reference Range Interpretation Comments MCH (test code = MCH) 31.7 pg 27.0-31.0 [facility] HospitalLplsmkbXARTMUGVFL2983-84-43 19:29:00 Test Item Value Reference Range Interpretation Comments MCV (test code = MCV) 96.2 80.0-98.0 [facility] HospitalMtrhbtqQGQONAOQYV9119-46-80 19:29:00 Test Item Value Reference Range Interpretation Comments MCHC (test code = MCHC) 33.0 32.0-36.0 [facility] HospitalNoufzegCMUWRHIADB8124-34-93 19:29:00 Test Item Value Reference Range Interpretation Comments RDW (test code = RDW) 13.8 11.5-14.5 [facility] HospitalQtcmbmeQKTVKSWBRW8752-64-16 19:29:00 Test Item Value Reference Range Interpretation Comments Lymphocytes (test code = Lymphocytes) 2.2 20.0-40.0 [facility] HospitalNvvwqusDNOBGUQBDZ8063-07-75 19:29:00 Test Item Value Reference Range Interpretation Comments Segs (test code = Segs) 94.4 45.0-75.0 [facility] HospitalOdbfzqnLOTBCTLOZV6487-18-52 19:29:00 Test Item Value Reference Range Interpretation Comments Monocytes (test code = Monocytes) 3.0 2.0-12.0 [facility] HospitalGxvkeaxQCPPHLJHCB8236-70-56 19:29:00 Test Item Value Reference Range Interpretation Comments Basophils (test code = 0.3 See_Comment [Aut omated message] The Basophils) system which ge nerated this result tra nsmitted reference range : <=1.0. The reference r morales was not used to int erpret this result as normal/abnormal . [facility] HospitalXnpwajvXGKWLAXYCG5331-11-34 19:29:00 Test Item Value Reference Range Interpretation Comments Monocytes # (test code 0.4 See_Comment [Aut omated message] The = Monocytes #) system which generated this result tra nsmitted reference range : <=0.8. The reference r morales was not used to int erpret this result as normal/abnormal . [facility] HospitalJxcyifkABDZZHAPJE9150-75-68 19:29:00 Test Item Value Reference Range Interpretation Comments Lymphocytes # (test code = Lymphocytes 0.3 1.0-5.5 #) [facility] HospitalMrgfoqiIOWJNMBVLJ0292-42-40 19:29:00 Test Item Value Reference Range Interpretation Comments Eosinophils (test code = 0.1 See_Comment [A utomated message] The Eosinophils) system which ge nerated this result tra nsmitted reference range : <=4.0. The reference r morales was not used to int erpret this result as normal/abnormal . [facility] HospitalEgdvfgzRRCPKLXTYB7039-15-36 19:29:00 Test Item Value Reference Range Interpretation Comments Segs-Bands # (test code = Segs-Bands #) 11.5 1.5-8.1 [facility] HospitalXymaxfxLBPJNBVJPB7368-26-48 19:29:00 Test Item Value Reference Range Interpretation Comments RBC (test code = RBC) 4.24 4.20-5.40 [facility] HospitalTnjpngpKVUBUUTCJH7390-72-67 19:29:00 Test Item Value Reference Range Interpretation Comments Hct (test code = Hct) 40.8 36.0-48.0 [facility] HospitalElhcbhhNYIYLUQOVA9408-59-40 19:29:00 Test Item Value Reference Range Interpretation Comments Hgb (test code = Hgb) 13.4 12.0-16.0 [facility] HospitalBcyewxhRHJRUADJOJ3923-12-06 19:29:00 Test Item Value Reference Range Interpretation Comments WBC (test code = WBC) 12.2 3.7-10.4 [facility] HospitalOxbczdqHLRWQBWCBD1174-74-76 19:29:00 Test Item Value Reference Range Interpretation Comments MPV (test code = MPV) 8.7 7.4-10.4 [facility] HospitalWajaxyeHYKFBJMFBY7392-16-42 19:29:00 Test Item Value Reference Range Interpretation Comments Platelet (test code = Platelet) 216 133-450 [facility] HospitalLmgwkyfJWMPOQUCMM9559-29-42 19:29:00 Test Item Value Reference Range Interpretation Comments MCH (test code = MCH) 31.7 pg 27.0-31.0 [facility] HospitalBfeikatZUPHRZUEOO4936-43-33 19:29:00 Test Item Value Reference Range Interpretation Comments MCV (test code = MCV) 96.2 80.0-98.0 [facility] HospitalIyxyrseOAYFXEFQGC4687-73-59 19:29:00 Test Item Value Reference Range Interpretation Comments MCHC (test code = MCHC) 33.0 32.0-36.0 [facility] HospitalBwxiqwqGLLBRFRLSR1679-75-47 19:29:00 Test Item Value Reference Range Interpretation Comments RDW (test code = RDW) 13.8 11.5-14.5 [facility] HospitalZhmjqgoMJCVOZUEZC5505-60-89 19:29:00 Test Item Value Reference Range Interpretation Comments Lymphocytes (test code = Lymphocytes) 2.2 20.0-40.0 [facility] HospitalQweeflpDTVQLWIRLR8746-15-65 19:29:00 Test Item Value Reference Range Interpretation Comments Segs (test code = Segs) 94.4 45.0-75.0 [facility] HospitalUanpltoHVOZQAKGFW2342-00-13 19:29:00 Test Item Value Reference Range Interpretation Comments Monocytes (test code = Monocytes) 3.0 2.0-12.0 [facility] HospitalZsjsjhjZWTHMDKIKH0820-59-55 19:29:00 Test Item Value Reference Range Interpretation Comments Basophils (test code = 0.3 See_Comment [Aut omated message] The Basophils) system which ge nerated this result tra nsmitted reference range : <=1.0. The reference r morales was not used to int erpret this result as normal/abnormal . [facility] HospitalQedeycjMHRLEYCSXE4194-09-25 19:29:00 Test Item Value Reference Range Interpretation Comments Monocytes # (test code 0.4 See_Comment [Aut omated message] The = Monocytes #) system which generated this result tra nsmitted reference range : <=0.8. The reference r morales was not used to int erpret this result as normal/abnormal . [facility] HospitalHfxzxmwRJWABFZFWY2625-77-84 19:29:00 Test Item Value Reference Range Interpretation Comments Lymphocytes # (test code = Lymphocytes 0.3 1.0-5.5 #) [facility] HospitalIrywqmiEFHELXEAKS5465-93-25 19:29:00 Test Item Value Reference Range Interpretation Comments Eosinophils (test code = 0.1 See_Comment [A utomated message] The Eosinophils) system which ge nerated this result tra nsmitted reference range : <=4.0. The reference r morales was not used to int erpret this result as normal/abnormal . [facility] HospitalLqrmgkuWEQDUKRDSU9412-30-13 19:29:00 Test Item Value Reference Range Interpretation Comments Segs-Bands # (test code = Segs-Bands #) 11.5 1.5-8.1 [facility] HospitalOhwtrmvQRZHQGLFUX0779-82-95 20:40:00 Test Item Value Reference Range Interpretation Comments INR (test code = INR) 0.85 0.85-1.17 [facility] HospitalYcpsfnyMUNHHSKAEX7461-70-85 20:40:00 Test Item Value Reference Range Interpretation Comments PT (test code = PT) 11.6 s 12.0-14.7 [facility]2014-10-23 20:40:00 Test Item Value Reference Range Interpretation Comments UA Urobilinogen (test code = UA <=1.0 mg/dL 0.1-1.0 Urobilinogen) [facility]2014-10-23 20:40:00 Test Item Value Reference Range Interpretation Comments UA Mucus (test code = UA Mucus) Few /LPF [facility]2014-10-23 20:40:00 Test Item Value Reference Range Interpretation Comments UA Leuk Est (test code Small *ABN*(12/28/13 = UA Leuk Est) 3:40 PM) [facility]2014-10-23 20:40:00 Test Item Value Reference Range Interpretation Comments UA Nitrite (test code Negative (12/28/13 3:40 = UA Nitrite) PM) [facility]2014-10-23 20:40:00 Test Item Value Reference Range Interpretation Comments UA WBC (test code = 7 See_Comment [Automa lola message] The UA WBC) system which ge nerated this result transmit lola reference range : <=5. The reference range was not used to interpr et this result as masoud l/abnormal. [facility] AND [id number] 20:40:00 Test Item Value Reference Range Interpretation Comments UA Sq Epi (test code = UA Sq Epi) Many /LPF [facility] [id number] 20:40:00 Test Item Value Reference Range Interpretation Comments UA RBC (test code = 3 See_Comment [Automa lola message] The UA RBC) system which ge nerated this result transmit lola reference range : <=2. The reference range was not used to interpr et this result as masoud l/abnormal. [facility] AND [id number] 20:40:00 Test Item Value Reference Range Interpretation Comments UA pH (test code = UA pH) 5.5 5.0-8.0 [facility] AND [id number] 20:40:00 Test Item Value Reference Range Interpretation Comments UA Spec Grav (test code = UA Spec Grav) 1.017 [facility] AND [id number] 20:40:00 Test Item Value Reference Range Interpretation Comments UA Glucose (test code = UA Negative mg/dL Glucose) [facility] [id number] 20:40:00 Test Item Value Reference Range Interpretation Comments UA Protein (test code = UA Negative mg/dL Protein) [facility] [id number] 20:40:00 Test Item Value Reference Range Interpretation Comments UA Blood (test code = Negative (12/28/13 3:40 UA Blood) PM) [facility] AND [id number] 20:40:00 Test Item Value Reference Range Interpretation Comments UA Bili (test code = Negative *NA*(12/28/13 UA Bili) 3:40 PM) [facility] AND [id number] 20:40:00 Test Item Value Reference Range Interpretation Comments UA Ketones (test code = UA Negative mg/dL Ketones) [facility] [id number] 20:40:00 Test Item Value Reference Range Interpretation Comments UA Color (test code = Yellow *NA*(12/28/13 UA Color) 3:40 PM) [facility] [id number] 20:40:00 Test Item Value Reference Range Interpretation Comments UA Turbidity (test code Slight *ABN*(12/28/13 = UA Turbidity) 3:40 PM) [facility] [id number] 20:40:00 Test Item Value Reference Range Interpretation Comments A/G Ratio (test code = A/G Ratio) 1.4 0.7-1.6 [facility]2014-10-23 20:40:00 Test Item Value Reference Range Interpretation Comments AGAP (test code = AGAP) 10.0 10.0-20.0 [facility]2014-10-23 20:40:00 Test Item Value Reference Range Interpretation Comments Globulin (test code = Globulin) 3.0 2.0-4.0 [facility]2014-10-23 20:40:00 Test Item Value Reference Range Interpretation Comments B/C Ratio (test code = B/C Ratio) 24 6-25 [facility]2014-10-23 20:40:00 Test Item Value Reference Range Interpretation Comments eGFR (test code = eGFR) 63 [facility]2014-10-23 20:40:00 Test Item Value Reference Range Interpretation Comments Bili Total (test code = Bili Total) 0.1 0.2-1.3 [facility]2014-10-23 20:40:00 Test Item Value Reference Range Interpretation Comments Calcium Lvl (test code = Calcium Lvl) 8.9 8.5-10.5 [facility]2014-10-23 20:40:00 Test Item Value Reference Range Interpretation Comments CO2 (test code = CO2) 25 24-32 [facility]2014-10-23 20:40:00 Test Item Value Reference Range Interpretation Comments Albumin Lvl (test code = Albumin Lvl) 4.1 3.5-5.0 [facility]2014-10-23 20:40:00 Test Item Value Reference Range Interpretation Comments ALT (test code = ALT) 21 See_Comment [Auto mated message] The system which ge nerated this result transmit lola reference range : <=65. The reference range was not used to interpr et this result as masoud l/abnormal. [facility]2014-10-23 20:40:00 Test Item Value Reference Range Interpretation Comments Total Protein (test code = Total 7.1 6.4-8.4 Protein) [facility]2014-10-23 20:40:00 Test Item Value Reference Range Interpretation Comments Alk Phos (test code = Alk Phos) 132 39-136 [facility]2014-10-23 20:40:00 Test Item Value Reference Range Interpretation Comments AST (test code = AST) 13 See_Comment [Auto mated message] The system which ge nerated this result transmit lola reference range : <=37. The reference range was not used to interpr et this result as masoud l/abnormal. [facility]2014-10-23 20:40:00 Test Item Value Reference Range Interpretation Comments Sodium Lvl (test code = Sodium Lvl) 141 135-145 [facility]2014-10-23 20:40:00 Test Item Value Reference Range Interpretation Comments BUN (test code = BUN) 24 7-22 [facility]2014-10-23 20:40:00 Test Item Value Reference Range Interpretation Comments Creatinine Lvl (test code = Creatinine 1.0 0.5-1.4 Lvl) [facility]2014-10-23 20:40:00 Test Item Value Reference Range Interpretation Comments Potassium Lvl (test code = Potassium 4.0 3.5-5.1 Lvl) [facility]2014-10-23 20:40:00 Test Item Value Reference Range Interpretation Comments Chloride Lvl (test code = Chloride Lvl) 110 95-109 [facility]2014-10-23 20:40:00 Test Item Value Reference Range Interpretation Comments Glucose Lvl (test code = Glucose Lvl) 91 70-99 [facility] HospitalFvejexwXICVNGXFMJ8486-89-65 20:40:00 Test Item Value Reference Range Interpretation Comments Eosinophils # (test code 0.1 See_Comment [A utomated message] The = Eosinophils #) system whic h generated this result tra nsmitted reference range : <=0.5. The reference r morales was not used to int erpret this result as normal/abnormal . [facility] HospitalDuexvzaLRCGCXSRYW9254-21-64 20:40:00 Test Item Value Reference Range Interpretation Comments Basophils # (test code 0.0 See_Comment [Aut omated message] The = Basophils #) system which generated this result tra nsmitted reference range : <=0.2. The reference r morales was not used to int erpret this result as normal/abnormal . [facility] HospitalLksdoflMCOXNKSZMY8295-84-67 20:40:00 Test Item Value Reference Range Interpretation Comments Basophils (test code = 0.1 See_Comment [Aut omated message] The Basophils) system which ge nerated this result tra nsmitted reference range : <=1.0. The reference r morales was not used to int erpret this result as normal/abnormal . [facility] HospitalSjtpvneYVCXXYHDKS8741-49-15 20:40:00 Test Item Value Reference Range Interpretation Comments Lymphocytes # (test code = Lymphocytes 2.6 1.0-5.5 #) [facility]PgzaqbgQKCHKSYXBJ7951-01-17 20:40:00 Test Item Value Reference Range Interpretation Comments Monocytes # (test code 0.6 See_Comment [Aut omated message] The = Monocytes #) system which generated this result tra nsmitted reference range : <=0.8. The reference r morales was not used to int erpret this result as normal/abnormal . [facility] HospitalBorrzrcUTHOOIJJTX6586-96-65 20:40:00 Test Item Value Reference Range Interpretation Comments Segs-Bands # (test code = Segs-Bands #) 4.7 1.5-8.1 [facility] HospitalOkvtsjbBLZNODEJER0383-85-10 20:40:00 Test Item Value Reference Range Interpretation Comments Segs (test code = Segs) 58.3 45.0-75.0 [facility] HospitalRufjfcoUEXWSBZZYR3829-07-03 20:40:00 Test Item Value Reference Range Interpretation Comments Lymphocytes (test code = Lymphocytes) 32.6 20.0-40.0 [facility] HospitalYrrcgokQRGMCEZAHX1908-40-62 20:40:00 Test Item Value Reference Range Interpretation Comments Eosinophils (test code = 1.7 See_Comment [A utomated message] The Eosinophils) system which ge nerated this result tra nsmitted reference range : <=4.0. The reference r morales was not used to int erpret this result as normal/abnormal . [facility] HospitalYrlvunvHZBYTUVZTV7173-23-36 20:40:00 Test Item Value Reference Range Interpretation Comments Monocytes (test code = Monocytes) 7.3 2.0-12.0 [facility] HospitalIumudjeZIZDFMEXJW5078-03-09 20:40:00 Test Item Value Reference Range Interpretation Comments MPV (test code = MPV) 8.6 7.4-10.4 [facility] HospitalKxrexqvFCNSTCXSRR9906-06-07 20:40:00 Test Item Value Reference Range Interpretation Comments WBC (test code = WBC) 8.0 3.7-10.4 [facility] HospitalEljeulqKLUMJAFUHC1698-99-25 20:40:00 Test Item Value Reference Range Interpretation Comments MCH (test code = MCH) 29.1 pg 27.0-31.0 [facility] HospitalFlipqzhALXBKAZKNY3956-34-63 20:40:00 Test Item Value Reference Range Interpretation Comments RDW (test code = RDW) 18.5 11.5-14.5 [facility] HospitalShroukdVPFVJNGARW8711-77-82 20:40:00 Test Item Value Reference Range Interpretation Comments MCHC (test code = MCHC) 32.8 32.0-36.0 [facility] HospitalIzdwivcZPLEGJCNWR0666-37-98 20:40:00 Test Item Value Reference Range Interpretation Comments Platelet (test code = Platelet) 231 133-450 [facility] HospitalDifitrbPKDOOQCORV0859-02-17 20:40:00 Test Item Value Reference Range Interpretation Comments MCV (test code = MCV) 88.9 80.0-98.0 [facility] HospitalCtwgsgoCVRVWHTQGF6472-81-64 20:40:00 Test Item Value Reference Range Interpretation Comments RBC (test code = RBC) 4.14 4.20-5.40 [facility] HospitalKcaupbwIKNNXSIQYW5252-49-54 20:40:00 Test Item Value Reference Range Interpretation Comments Hct (test code = Hct) 36.8 36.0-48.0 [facility] HospitalNidvqssYNTJBJROQB8537-95-62 20:40:00 Test Item Value Reference Range Interpretation Comments Hgb (test code = Hgb) 12.1 12.0-16.0 [facility] HospitalSryxmbtICONRUTNUP8112-45-75 20:40:00 Test Item Value Reference Range Interpretation Comments PTT (test code = PTT) 31.3 s 22.9-35.8 [facility] HospitalEwvmmdqDIPGITPBKJ1148-94-17 20:40:00 Test Item Value Reference Range Interpretation Comments INR (test code = INR) 0.85 0.85-1.17 [facility] HospitalHwokngoIUNVZVCKXK9798-38-48 20:40:00 Test Item Value Reference Range Interpretation Comments PT (test code = PT) 11.6 s 12.0-14.7 [facility] AND [id number] 20:40:00 Test Item Value Reference Range Interpretation Comments UA Urobilinogen (test code = UA <=1.0 mg/dL 0.1-1.0 Urobilinogen) [facility] AND [id number] 20:40:00 Test Item Value Reference Range Interpretation Comments UA Mucus (test code = UA Mucus) Few /LPF [facility] AND [id number] 20:40:00 Test Item Value Reference Range Interpretation Comments UA Leuk Est (test code Small *ABN*(12/28/13 = UA Leuk Est) 3:40 PM) [facility] AND [id number] 20:40:00 Test Item Value Reference Range Interpretation Comments UA Nitrite (test code Negative (12/28/13 3:40 = UA Nitrite) PM) [facility] AND [id number] 20:40:00 Test Item Value Reference Range Interpretation Comments UA WBC (test code = 7 See_Comment [Automa lola message] The UA WBC) system which ge nerated this result transmit lola reference range : <=5. The reference range was not used to interpr et this result as masoud l/abnormal. [facility] AND [id number] 20:40:00 Test Item Value Reference Range Interpretation Comments UA Sq Epi (test code = UA Sq Epi) Many /LPF [facility] AND [id number] 20:40:00 Test Item Value Reference Range Interpretation Comments UA RBC (test code = 3 See_Comment [Automa lola message] The UA RBC) system which ge nerated this result transmit lola reference range : <=2. The reference range was not used to interpr et this result as masoud l/abnormal. [facility] AND [id number] 20:40:00 Test Item Value Reference Range Interpretation Comments UA pH (test code = UA pH) 5.5 5.0-8.0 [facility] AND [id number] 20:40:00 Test Item Value Reference Range Interpretation Comments UA Spec Grav (test code = UA Spec Grav) 1.017 [facility] AND [id number] 20:40:00 Test Item Value Reference Range Interpretation Comments UA Glucose (test code = UA Negative mg/dL Glucose) [facility] [id number] 20:40:00 Test Item Value Reference Range Interpretation Comments UA Protein (test code = UA Negative mg/dL Protein) [facility] [id number] 20:40:00 Test Item Value Reference Range Interpretation Comments UA Blood (test code = Negative (12/28/13 3:40 UA Blood) PM) [facility] AND [id number] 20:40:00 Test Item Value Reference Range Interpretation Comments UA Bili (test code = Negative *NA*(12/28/13 UA Bili) 3:40 PM) [facility] AND [id number] 20:40:00 Test Item Value Reference Range Interpretation Comments UA Ketones (test code = UA Negative mg/dL Ketones) [facility] AND [id number] 20:40:00 Test Item Value Reference Range Interpretation Comments UA Color (test code = Yellow *NA*(12/28/13 UA Color) 3:40 PM) [facility] AND [id number] 20:40:00 Test Item Value Reference Range Interpretation Comments UA Turbidity (test code Slight *ABN*(12/28/13 = UA Turbidity) 3:40 PM) [facility]2014-10-23 20:40:00 Test Item Value Reference Range Interpretation Comments A/G Ratio (test code = A/G Ratio) 1.4 0.7-1.6 [facility]2014-10-23 20:40:00 Test Item Value Reference Range Interpretation Comments AGAP (test code = AGAP) 10.0 10.0-20.0 [facility]2014-10-23 20:40:00 Test Item Value Reference Range Interpretation Comments Globulin (test code = Globulin) 3.0 2.0-4.0 [facility]2014-10-23 20:40:00 Test Item Value Reference Range Interpretation Comments B/C Ratio (test code = B/C Ratio) 24 6-25 [facility]2014-10-23 20:40:00 Test Item Value Reference Range Interpretation Comments eGFR (test code = eGFR) 63 [facility]2014-10-23 20:40:00 Test Item Value Reference Range Interpretation Comments Bili Total (test code = Bili Total) 0.1 0.2-1.3 [facility]2014-10-23 20:40:00 Test Item Value Reference Range Interpretation Comments Calcium Lvl (test code = Calcium Lvl) 8.9 8.5-10.5 [facility]2014-10-23 20:40:00 Test Item Value Reference Range Interpretation Comments CO2 (test code = CO2) 25 24-32 [facility]2014-10-23 20:40:00 Test Item Value Reference Range Interpretation Comments Albumin Lvl (test code = Albumin Lvl) 4.1 3.5-5.0 [facility]2014-10-23 20:40:00 Test Item Value Reference Range Interpretation Comments ALT (test code = ALT) 21 See_Comment [Auto mated message] The system which ge nerated this result transmit lola reference range : <=65. The reference range was not used to interpr et this result as masoud l/abnormal. [facility]2014-10-23 20:40:00 Test Item Value Reference Range Interpretation Comments Total Protein (test code = Total 7.1 6.4-8.4 Protein) [facility]2014-10-23 20:40:00 Test Item Value Reference Range Interpretation Comments Alk Phos (test code = Alk Phos) 132 39-136 [facility]2014-10-23 20:40:00 Test Item Value Reference Range Interpretation Comments AST (test code = AST) 13 See_Comment [Auto mated message] The system which ge nerated this result transmit lola reference range : <=37. The reference range was not used to interpr et this result as masoud l/abnormal. [facility]2014-10-23 20:40:00 Test Item Value Reference Range Interpretation Comments Sodium Lvl (test code = Sodium Lvl) 141 135-145 [facility]2014-10-23 20:40:00 Test Item Value Reference Range Interpretation Comments BUN (test code = BUN) 24 7-22 [facility]2014-10-23 20:40:00 Test Item Value Reference Range Interpretation Comments Creatinine Lvl (test code = Creatinine 1.0 0.5-1.4 Lvl) [facility]2014-10-23 20:40:00 Test Item Value Reference Range Interpretation Comments Potassium Lvl (test code = Potassium 4.0 3.5-5.1 Lvl) [facility]2014-10-23 20:40:00 Test Item Value Reference Range Interpretation Comments Chloride Lvl (test code = Chloride Lvl) 110 95-109 [facility]2014-10-23 20:40:00 Test Item Value Reference Range Interpretation Comments Glucose Lvl (test code = Glucose Lvl) 91 70-99 [facility] HospitalPwdesxjFOTVPMDZJC1431-78-78 20:40:00 Test Item Value Reference Range Interpretation Comments Eosinophils # (test code 0.1 See_Comment [A utomated message] The = Eosinophils #) system whic h generated this result tra nsmitted reference range : <=0.5. The reference r morales was not used to int erpret this result as normal/abnormal . [facility] HospitalXbtqfiuWIDPXNHFQL2318-53-79 20:40:00 Test Item Value Reference Range Interpretation Comments Basophils # (test code 0.0 See_Comment [Aut omated message] The = Basophils #) system which generated this result tra nsmitted reference range : <=0.2. The reference r morales was not used to int erpret this result as normal/abnormal . [facility] HospitalKomvhafZRIEOSWOTI2997-47-76 20:40:00 Test Item Value Reference Range Interpretation Comments Basophils (test code = 0.1 See_Comment [Aut omated message] The Basophils) system which ge nerated this result tra nsmitted reference range : <=1.0. The reference r morales was not used to int erpret this result as normal/abnormal . [facility] HospitalEsgchpiIIGJGPYKMY6383-88-56 20:40:00 Test Item Value Reference Range Interpretation Comments Lymphocytes # (test code = Lymphocytes 2.6 1.0-5.5 #) [facility] HospitalGoadofjYDHRNSGIAD4464-95-49 20:40:00 Test Item Value Reference Range Interpretation Comments Monocytes # (test code 0.6 See_Comment [Aut omated message] The = Monocytes #) system which generated this result tra nsmitted reference range : <=0.8. The reference r morales was not used to int erpret this result as normal/abnormal . [place] [id number] 20:40:00 Test Item Value Reference Range Interpretation Comments Segs-Bands # (test code = Segs-Bands #) 4.7 1.5-8.1 [facility] HospitalEiywfkwOJLOFJVGJC9033-88-70 20:40:00 Test Item Value Reference Range Interpretation Comments Segs (test code = Segs) 58.3 45.0-75.0 [facility] HospitalUjhamiyVNBEWMTCOY9040-87-75 20:40:00 Test Item Value Reference Range Interpretation Comments Lymphocytes (test code = Lymphocytes) 32.6 20.0-40.0 [facility] HospitalKdfrvzxBGGAYMBPGW0300-86-10 20:40:00 Test Item Value Reference Range Interpretation Comments Eosinophils (test code = 1.7 See_Comment [A utomated message] The Eosinophils) system which ge nerated this result tra nsmitted reference range : <=4.0. The reference r morales was not used to int erpret this result as normal/abnormal . [facility] HospitalRrmiukfYQHPRBKBRK3956-99-02 20:40:00 Test Item Value Reference Range Interpretation Comments Monocytes (test code = Monocytes) 7.3 2.0-12.0 [facility] HospitalCwvefuwGTLJKFAZBA2627-43-02 20:40:00 Test Item Value Reference Range Interpretation Comments MPV (test code = MPV) 8.6 7.4-10.4 [facility] HospitalZuxtslvWMTXMKVGRD9697-63-46 20:40:00 Test Item Value Reference Range Interpretation Comments WBC (test code = WBC) 8.0 3.7-10.4 [facility] HospitalYhvqvhgSGJOEQACJN3714-80-09 20:40:00 Test Item Value Reference Range Interpretation Comments MCH (test code = MCH) 29.1 pg 27.0-31.0 [facility] HospitalLrfhyycNOFSQLOKPT2383-15-26 20:40:00 Test Item Value Reference Range Interpretation Comments RDW (test code = RDW) 18.5 11.5-14.5 [facility] HospitalCnmmsqvGVMOUHYUIY6002-83-95 20:40:00 Test Item Value Reference Range Interpretation Comments MCHC (test code = MCHC) 32.8 32.0-36.0 [facility] HospitalEubuwgzEFRBRBDUNT9473-64-58 20:40:00 Test Item Value Reference Range Interpretation Comments Platelet (test code = Platelet) 231 133-450 [facility] HospitalWemyqvyFKISTHQOFJ4292-44-18 20:40:00 Test Item Value Reference Range Interpretation Comments MCV (test code = MCV) 88.9 80.0-98.0 [facility] HospitalJmgmimcXDJLEKGXCU2082-75-24 20:40:00 Test Item Value Reference Range Interpretation Comments RBC (test code = RBC) 4.14 4.20-5.40 [facility] HospitalUdywzsjNMAKWJAGZZ7041-39-92 20:40:00 Test Item Value Reference Range Interpretation Comments Hct (test code = Hct) 36.8 36.0-48.0 [facility] HospitalBlsrjexVOSFETDBGO9912-51-23 20:40:00 Test Item Value Reference Range Interpretation Comments Hgb (test code = Hgb) 12.1 12.0-16.0 [facility] HospitalCasifpiXLLJRSLWEF3004-54-86 20:40:00 Test Item Value Reference Range Interpretation Comments PTT (test code = PTT) 31.3 s 22.9-35.8 [facility] HospitalYwjwsbwDEZZPIFDFZ9207-45-85 20:40:00 Test Item Value Reference Range Interpretation Comments INR (test code = INR) 0.85 0.85-1.17 [facility] HospitalBuuzslqPQIJSFHGLT7654-30-67 20:40:00 Test Item Value Reference Range Interpretation Comments PT (test code = PT) 11.6 s 12.0-14.7 [facility]2014-10-23 20:40:00 Test Item Value Reference Range Interpretation Comments UA Urobilinogen (test code = UA <=1.0 mg/dL 0.1-1.0 Urobilinogen) [facility] AND [id number] 20:40:00 Test Item Value Reference Range Interpretation Comments UA Mucus (test code = UA Mucus) Few /LPF [facility]2014-10-23 20:40:00 Test Item Value Reference Range Interpretation Comments UA Leuk Est (test code Small *ABN*(12/28/13 = UA Leuk Est) 3:40 PM) [facility]2014-10-23 20:40:00 Test Item Value Reference Range Interpretation Comments UA Nitrite (test code Negative (12/28/13 3:40 = UA Nitrite) PM) [facility]2014-10-23 20:40:00 Test Item Value Reference Range Interpretation Comments UA WBC (test code = 7 See_Comment [Automa lola message] The UA WBC) system which ge nerated this result transmit lola reference range : <=5. The reference range was not used to interpr et this result as masoud l/abnormal. [facility] AND [id number] 20:40:00 Test Item Value Reference Range Interpretation Comments UA Sq Epi (test code = UA Sq Epi) Many /LPF [facility] AND [id number] 20:40:00 Test Item Value Reference Range Interpretation Comments UA RBC (test code = 3 See_Comment [Automa lola message] The UA RBC) system which ge nerated this result transmit lola reference range : <=2. The reference range was not used to interpr et this result as masoud l/abnormal. [facility] AND [id number] 20:40:00 Test Item Value Reference Range Interpretation Comments UA pH (test code = UA pH) 5.5 5.0-8.0 [facility] AND [id number] 20:40:00 Test Item Value Reference Range Interpretation Comments UA Spec Grav (test code = UA Spec Grav) 1.017 [facility] AND [id number] 20:40:00 Test Item Value Reference Range Interpretation Comments UA Glucose (test code = UA Negative mg/dL Glucose) [facility] AND [id number] 20:40:00 Test Item Value Reference Range Interpretation Comments UA Protein (test code = UA Negative mg/dL Protein) [facility] AND [id number] 20:40:00 Test Item Value Reference Range Interpretation Comments UA Blood (test code = Negative (12/28/13 3:40 UA Blood) PM) [facility] AND [id number] 20:40:00 Test Item Value Reference Range Interpretation Comments UA Bili (test code = Negative *NA*(12/28/13 UA Bili) 3:40 PM) [facility] AND [id number] 20:40:00 Test Item Value Reference Range Interpretation Comments UA Ketones (test code = UA Negative mg/dL Ketones) [facility] AND [id number] 20:40:00 Test Item Value Reference Range Interpretation Comments UA Color (test code = Yellow *NA*(12/28/13 UA Color) 3:40 PM) [facility] AND [id number] 20:40:00 Test Item Value Reference Range Interpretation Comments UA Turbidity (test code Slight *ABN*(12/28/13 = UA Turbidity) 3:40 PM) [facility]2014-10-23 20:40:00 Test Item Value Reference Range Interpretation Comments A/G Ratio (test code = A/G Ratio) 1.4 0.7-1.6 [facility]2014-10-23 20:40:00 Test Item Value Reference Range Interpretation Comments AGAP (test code = AGAP) 10.0 10.0-20.0 [facility]2014-10-23 20:40:00 Test Item Value Reference Range Interpretation Comments Globulin (test code = Globulin) 3.0 2.0-4.0 [facility]2014-10-23 20:40:00 Test Item Value Reference Range Interpretation Comments B/C Ratio (test code = B/C Ratio) 24 6-25 [facility]2014-10-23 20:40:00 Test Item Value Reference Range Interpretation Comments eGFR (test code = eGFR) 63 [facility]2014-10-23 20:40:00 Test Item Value Reference Range Interpretation Comments Bili Total (test code = Bili Total) 0.1 0.2-1.3 [facility]2014-10-23 20:40:00 Test Item Value Reference Range Interpretation Comments Calcium Lvl (test code = Calcium Lvl) 8.9 8.5-10.5 [facility]2014-10-23 20:40:00 Test Item Value Reference Range Interpretation Comments CO2 (test code = CO2) 25 24-32 [facility]2014-10-23 20:40:00 Test Item Value Reference Range Interpretation Comments Albumin Lvl (test code = Albumin Lvl) 4.1 3.5-5.0 [facility]2014-10-23 20:40:00 Test Item Value Reference Range Interpretation Comments ALT (test code = ALT) 21 See_Comment [Auto mated message] The system which ge nerated this result transmit lola reference range : <=65. The reference range was not used to interpr et this result as masoud l/abnormal. [facility]2014-10-23 20:40:00 Test Item Value Reference Range Interpretation Comments Total Protein (test code = Total 7.1 6.4-8.4 Protein) [facility]2014-10-23 20:40:00 Test Item Value Reference Range Interpretation Comments Alk Phos (test code = Alk Phos) 132 39-136 [facility]2014-10-23 20:40:00 Test Item Value Reference Range Interpretation Comments AST (test code = AST) 13 See_Comment [Auto mated message] The system which ge nerated this result transmit lola reference range : <=37. The reference range was not used to interpr et this result as masoud l/abnormal. [facility]2014-10-23 20:40:00 Test Item Value Reference Range Interpretation Comments Sodium Lvl (test code = Sodium Lvl) 141 135-145 [facility]2014-10-23 20:40:00 Test Item Value Reference Range Interpretation Comments BUN (test code = BUN) 24 7-22 [facility]2014-10-23 20:40:00 Test Item Value Reference Range Interpretation Comments Creatinine Lvl (test code = Creatinine 1.0 0.5-1.4 Lvl) [facility]2014-10-23 20:40:00 Test Item Value Reference Range Interpretation Comments Potassium Lvl (test code = Potassium 4.0 3.5-5.1 Lvl) [facility]2014-10-23 20:40:00 Test Item Value Reference Range Interpretation Comments Chloride Lvl (test code = Chloride Lvl) 110 95-109 [facility]2014-10-23 20:40:00 Test Item Value Reference Range Interpretation Comments Glucose Lvl (test code = Glucose Lvl) 91 70-99 [facility] HospitalSxighcjXXDBVIOTPV0504-73-02 20:40:00 Test Item Value Reference Range Interpretation Comments Eosinophils # (test code 0.1 See_Comment [A utomated message] The = Eosinophils #) system whic h generated this result tra nsmitted reference range : <=0.5. The reference r morales was not used to int erpret this result as normal/abnormal . [facility] HospitalKemuevxZLKGUIYOJJ8100-82-24 20:40:00 Test Item Value Reference Range Interpretation Comments Basophils # (test code 0.0 See_Comment [Aut omated message] The = Basophils #) system which generated this result tra nsmitted reference range : <=0.2. The reference r moraels was not used to int erpret this result as normal/abnormal . [facility] HospitalHwnztapJGRYIZKEXD5742-03-76 20:40:00 Test Item Value Reference Range Interpretation Comments Basophils (test code = 0.1 See_Comment [Aut omated message] The Basophils) system which ge nerated this result tra nsmitted reference range : <=1.0. The reference r morales was not used to int erpret this result as normal/abnormal . [facility] HospitalWcijeadJQTFEWMGPV1789-04-49 20:40:00 Test Item Value Reference Range Interpretation Comments Lymphocytes # (test code = Lymphocytes 2.6 1.0-5.5 #) [facility] HospitalTbnrhhmOLBKTMCAAO3645-55-60 20:40:00 Test Item Value Reference Range Interpretation Comments Monocytes # (test code 0.6 See_Comment [Aut omated message] The = Monocytes #) system which generated this result tra nsmitted reference range : <=0.8. The reference r morales was not used to int erpret this result as normal/abnormal . [facility] HospitalPteiymtOMTKLKXNOO0014-88-07 20:40:00 Test Item Value Reference Range Interpretation Comments Segs-Bands # (test code = Segs-Bands #) 4.7 1.5-8.1 [facility] Hos[id number] 20:40:00 Test Item Value Reference Range Interpretation Comments Segs (test code = Segs) 58.3 45.0-75.0 [facility] HospitalCtweisiPBVIUNLPGX5997-27-55 20:40:00 Test Item Value Reference Range Interpretation Comments Lymphocytes (test code = Lymphocytes) 32.6 20.0-40.0 [facility] HospitalPzlgangHZFYKRAGGI9968-97-72 20:40:00 Test Item Value Reference Range Interpretation Comments Eosinophils (test code = 1.7 See_Comment [A utomated message] The Eosinophils) system which ge nerated this result tra nsmitted reference range : <=4.0. The reference r morales was not used to int erpret this result as normal/abnormal . [facility] HospitalSynjnoaDJUSBSMYDE7332-24-95 20:40:00 Test Item Value Reference Range Interpretation Comments Monocytes (test code = Monocytes) 7.3 2.0-12.0 [facility] HospitalKxkiltzPTLKWBWQIU4885-76-66 20:40:00 Test Item Value Reference Range Interpretation Comments MPV (test code = MPV) 8.6 7.4-10.4 [facility] HospitalBjmzuyuQFYKVLSVYV5951-59-48 20:40:00 Test Item Value Reference Range Interpretation Comments WBC (test code = WBC) 8.0 3.7-10.4 [facility] HospitalXfoffpoHLAAXVOHGL2932-39-56 20:40:00 Test Item Value Reference Range Interpretation Comments MCH (test code = MCH) 29.1 pg 27.0-31.0 [facility] HospitalHnldezpADGJMJAOWO1629-31-42 20:40:00 Test Item Value Reference Range Interpretation Comments RDW (test code = RDW) 18.5 11.5-14.5 [facility] HospitalZkippwxZESUUKBVSI2907-42-33 20:40:00 Test Item Value Reference Range Interpretation Comments MCHC (test code = MCHC) 32.8 32.0-36.0 [facility] HospitalInemnxqTRNVNLWGKB5948-31-35 20:40:00 Test Item Value Reference Range Interpretation Comments Platelet (test code = Platelet) 231 133-450 [facility] HospitalCuececpDUZVOMFYCH4442-20-03 20:40:00 Test Item Value Reference Range Interpretation Comments MCV (test code = MCV) 88.9 80.0-98.0 [facility] HospitalAuzqymtQHFXZEHAKK4623-37-67 20:40:00 Test Item Value Reference Range Interpretation Comments RBC (test code = RBC) 4.14 4.20-5.40 [facility] HospitalPefryqnAYSYQKTQTW9689-29-97 20:40:00 Test Item Value Reference Range Interpretation Comments Hct (test code = Hct) 36.8 36.0-48.0 [facility] HospitalCxbmfvpYAKJCKWCLN1266-94-65 20:40:00 Test Item Value Reference Range Interpretation Comments Hgb (test code = Hgb) 12.1 12.0-16.0 [facility] HospitalYoufbpuQXCGUSWXIE6724-37-18 20:40:00 Test Item Value Reference Range Interpretation Comments PTT (test code = PTT) 31.3 s 22.9-35.8 [facility] HospitalGodrxouWRQPZQDELS2652-16-65 20:40:00 Test Item Value Reference Range Interpretation Comments INR (test code = INR) 0.85 0.85-1.17 [facility] HospitalAbdevcjLERLRMMFIP7554-38-25 20:40:00 Test Item Value Reference Range Interpretation Comments PT (test code = PT) 11.6 s 12.0-14.7 [facility] [id number] 20:40:00 Test Item Value Reference Range Interpretation Comments UA Urobilinogen (test code = UA <=1.0 mg/dL 0.1-1.0 Urobilinogen) [facility] [id number] 20:40:00 Test Item Value Reference Range Interpretation Comments UA Mucus (test code = UA Mucus) Few /LPF [facility] AND [id number] 20:40:00 Test Item Value Reference Range Interpretation Comments UA Leuk Est (test code Small *ABN*(12/28/13 = UA Leuk Est) 3:40 PM) [facility] AND [id number] 20:40:00 Test Item Value Reference Range Interpretation Comments UA Nitrite (test code Negative (12/28/13 3:40 = UA Nitrite) PM) [facility] AND [id number] 20:40:00 Test Item Value Reference Range Interpretation Comments UA WBC (test code = 7 See_Comment [Automa lola message] The UA WBC) system which ge nerated this result transmit lola reference range : <=5. The reference range was not used to interpr et this result as masoud l/abnormal. [facility] [id number] 20:40:00 Test Item Value Reference Range Interpretation Comments UA Sq Epi (test code = UA Sq Epi) Many /LPF [facility] AND [id number] 20:40:00 Test Item Value Reference Range Interpretation Comments UA RBC (test code = 3 See_Comment [Automa lola message] The UA RBC) system which ge nerated this result transmit lola reference range : <=2. The reference range was not used to interpr et this result as masoud l/abnormal. [facility] [id number] 20:40:00 Test Item Value Reference Range Interpretation Comments UA pH (test code = UA pH) 5.5 5.0-8.0 [facility] [id number] 20:40:00 Test Item Value Reference Range Interpretation Comments UA Spec Grav (test code = UA Spec Grav) 1.017 [facility] AND [id number] 20:40:00 Test Item Value Reference Range Interpretation Comments UA Glucose (test code = UA Negative mg/dL Glucose) [facility] AND [id number] 20:40:00 Test Item Value Reference Range Interpretation Comments UA Protein (test code = UA Negative mg/dL Protein) [facility] AND [id number] 20:40:00 Test Item Value Reference Range Interpretation Comments UA Blood (test code = Negative (12/28/13 3:40 UA Blood) PM) [facility] AND [id number] 20:40:00 Test Item Value Reference Range Interpretation Comments UA Bili (test code = Negative *NA*(12/28/13 UA Bili) 3:40 PM) [facility] AND [id number] 20:40:00 Test Item Value Reference Range Interpretation Comments UA Ketones (test code = UA Negative mg/dL Ketones) [facility] AND [id number] 20:40:00 Test Item Value Reference Range Interpretation Comments UA Color (test code = Yellow *NA*(12/28/13 UA Color) 3:40 PM) [facility] AND [id number] 20:40:00 Test Item Value Reference Range Interpretation Comments UA Turbidity (test code Slight *ABN*(12/28/13 = UA Turbidity) 3:40 PM) [facility]2014-10-23 20:40:00 Test Item Value Reference Range Interpretation Comments A/G Ratio (test code = A/G Ratio) 1.4 0.7-1.6 [facility]2014-10-23 20:40:00 Test Item Value Reference Range Interpretation Comments AGAP (test code = AGAP) 10.0 10.0-20.0 [facility]2014-10-23 20:40:00 Test Item Value Reference Range Interpretation Comments Globulin (test code = Globulin) 3.0 2.0-4.0 [facility]2014-10-23 20:40:00 Test Item Value Reference Range Interpretation Comments B/C Ratio (test code = B/C Ratio) 24 6-25 [facility]2014-10-23 20:40:00 Test Item Value Reference Range Interpretation Comments eGFR (test code = eGFR) 63 [facility]2014-10-23 20:40:00 Test Item Value Reference Range Interpretation Comments Bili Total (test code = Bili Total) 0.1 0.2-1.3 [facility]2014-10-23 20:40:00 Test Item Value Reference Range Interpretation Comments Calcium Lvl (test code = Calcium Lvl) 8.9 8.5-10.5 [facility]2014-10-23 20:40:00 Test Item Value Reference Range Interpretation Comments CO2 (test code = CO2) 25 24-32 [facility]2014-10-23 20:40:00 Test Item Value Reference Range Interpretation Comments Albumin Lvl (test code = Albumin Lvl) 4.1 3.5-5.0 [facility]2014-10-23 20:40:00 Test Item Value Reference Range Interpretation Comments ALT (test code = ALT) 21 See_Comment [Auto mated message] The system which ge nerated this result transmit lola reference range : <=65. The reference range was not used to interpr et this result as masoud l/abnormal. [facility]2014-10-23 20:40:00 Test Item Value Reference Range Interpretation Comments Total Protein (test code = Total 7.1 6.4-8.4 Protein) [facility]2014-10-23 20:40:00 Test Item Value Reference Range Interpretation Comments Alk Phos (test code = Alk Phos) 132 39-136 [facility]2014-10-23 20:40:00 Test Item Value Reference Range Interpretation Comments AST (test code = AST) 13 See_Comment [Auto mated message] The system which ge nerated this result transmit lola reference range : <=37. The reference range was not used to interpr et this result as masoud l/abnormal. [facility]2014-10-23 20:40:00 Test Item Value Reference Range Interpretation Comments Sodium Lvl (test code = Sodium Lvl) 141 135-145 [facility]2014-10-23 20:40:00 Test Item Value Reference Range Interpretation Comments BUN (test code = BUN) 24 7-22 [facility]2014-10-23 20:40:00 Test Item Value Reference Range Interpretation Comments Creatinine Lvl (test code = Creatinine 1.0 0.5-1.4 Lvl) [place] [id number] 20:40:00 Test Item Value Reference Range Interpretation Comments Potassium Lvl (test code = Potassium 4.0 3.5-5.1 Lvl) [facility]2014-10-23 20:40:00 Test Item Value Reference Range Interpretation Comments Chloride Lvl (test code = Chloride Lvl) 110 95-109 [facility]2014-10-23 20:40:00 Test Item Value Reference Range Interpretation Comments Glucose Lvl (test code = Glucose Lvl) 91 70-99 [facility] HospitalBrefufaYJAHVIFLRM9359-54-39 20:40:00 Test Item Value Reference Range Interpretation Comments Eosinophils # (test code 0.1 See_Comment [A utomated message] The = Eosinophils #) system whic h generated this result tra nsmitted reference range : <=0.5. The reference r morales was not used to int erpret this result as normal/abnormal . [facility] HospitalSjxjkscQFWVXBNERJ3350-50-50 20:40:00 Test Item Value Reference Range Interpretation Comments Basophils # (test code 0.0 See_Comment [Aut omated message] The = Basophils #) system which generated this result tra nsmitted reference range : <=0.2. The reference r morales was not used to int erpret this result as normal/abnormal . [facility] HospitalJjyrglvIFYUHPNLXY0545-14-62 20:40:00 Test Item Value Reference Range Interpretation Comments Basophils (test code = 0.1 See_Comment [Aut omated message] The Basophils) system which ge nerated this result tra nsmitted reference range : <=1.0. The reference r morales was not used to int erpret this result as normal/abnormal . [facility] HospitalBnirwieZWTMPFNWBA4244-11-24 20:40:00 Test Item Value Reference Range Interpretation Comments Lymphocytes # (test code = Lymphocytes 2.6 1.0-5.5 #) [facility] HospitalJifdludVIQHURJJDT2871-67-96 20:40:00 Test Item Value Reference Range Interpretation Comments Monocytes # (test code 0.6 See_Comment [Aut omated message] The = Monocytes #) system which generated this result tra nsmitted reference range : <=0.8. The reference r morales was not used to int erpret this result as normal/abnormal . [facility] HospitalCrediqfYNRICRFCWK5341-73-27 20:40:00 Test Item Value Reference Range Interpretation Comments Segs-Bands # (test code = Segs-Bands #) 4.7 1.5-8.1 [facility] HospitalCbcmounMSJINOTWFP2926-35-01 20:40:00 Test Item Value Reference Range Interpretation Comments Segs (test code = Segs) 58.3 45.0-75.0 [facility] HospitalZtenwneUMRNEGFBYF2533-12-55 20:40:00 Test Item Value Reference Range Interpretation Comments Lymphocytes (test code = Lymphocytes) 32.6 20.0-40.0 [facility] HospitalGjaxlksHWNGLFMCBO1444-93-16 20:40:00 Test Item Value Reference Range Interpretation Comments Eosinophils (test code = 1.7 See_Comment [A utomated message] The Eosinophils) system which ge nerated this result tra nsmitted reference range : <=4.0. The reference r morales was not used to int erpret this result as normal/abnormal . [facility] HospitalIncejocTNMKDSDSWU8197-15-28 20:40:00 Test Item Value Reference Range Interpretation Comments Monocytes (test code = Monocytes) 7.3 2.0-12.0 [facility] HospitalHjyqbqyLYIJAYSJQJ7035-01-08 20:40:00 Test Item Value Reference Range Interpretation Comments MPV (test code = MPV) 8.6 7.4-10.4 [facility] HospitalZxqryjdLHLMPJPGSI0572-28-64 20:40:00 Test Item Value Reference Range Interpretation Comments WBC (test code = WBC) 8.0 3.7-10.4 [facility] HospitalMaopjbyGTPYTOCMRF7877-95-36 20:40:00 Test Item Value Reference Range Interpretation Comments MCH (test code = MCH) 29.1 pg 27.0-31.0 [facility] HospitalHnattyrSCNWKCFNPG4737-93-19 20:40:00 Test Item Value Reference Range Interpretation Comments RDW (test code = RDW) 18.5 11.5-14.5 [facility] HospitalSkgyncpNQQAEOKRFG1336-11-72 20:40:00 Test Item Value Reference Range Interpretation Comments MCHC (test code = MCHC) 32.8 32.0-36.0 [facility] HospitalYbhuckcQHAZEEVJPV8011-73-77 20:40:00 Test Item Value Reference Range Interpretation Comments Platelet (test code = Platelet) 231 133-450 [facility] HospitalCaehnmnFEIVXODTNN0130-27-65 20:40:00 Test Item Value Reference Range Interpretation Comments MCV (test code = MCV) 88.9 80.0-98.0 [facility] HospitalRekkrxyUPNBLZDQEK5963-21-16 20:40:00 Test Item Value Reference Range Interpretation Comments RBC (test code = RBC) 4.14 4.20-5.40 [facility] HospitalVukronhPDEDHYUTIG1146-22-14 20:40:00 Test Item Value Reference Range Interpretation Comments Hct (test code = Hct) 36.8 36.0-48.0 [facility] HospitalKpyhpspVDQFFNQYOC4915-58-96 20:40:00 Test Item Value Reference Range Interpretation Comments Hgb (test code = Hgb) 12.1 12.0-16.0 [facility] HospitalZynoqqaICVKWOYIBT5170-72-43 20:40:00 Test Item Value Reference Range Interpretation Comments PTT (test code = PTT) 31.3 s 22.9-35.8 [facility] HospitalFvxxibdTPHYZKZARW0948-39-48 20:40:00 Test Item Value Reference Range Interpretation Comments INR (test code = INR) 0.85 0.85-1.17 [facility] HospitalHmlcfobLDOVUQMYXT0373-53-73 20:40:00 Test Item Value Reference Range Interpretation Comments PT (test code = PT) 11.6 s 12.0-14.7 [facility] AND [id number] 20:40:00 Test Item Value Reference Range Interpretation Comments UA Urobilinogen (test code = UA <=1.0 mg/dL 0.1-1.0 Urobilinogen) [facility] AND [id number] 20:40:00 Test Item Value Reference Range Interpretation Comments UA Mucus (test code = UA Mucus) Few /LPF [facility]2014-10-23 20:40:00 Test Item Value Reference Range Interpretation Comments UA Leuk Est (test code Small *ABN*(12/28/13 = UA Leuk Est) 3:40 PM) [facility] AND [id number] 20:40:00 Test Item Value Reference Range Interpretation Comments UA Nitrite (test code Negative (12/28/13 3:40 = UA Nitrite) PM) [facility]2014-10-23 20:40:00 Test Item Value Reference Range Interpretation Comments UA WBC (test code = 7 See_Comment [Automa lola message] The UA WBC) system which ge nerated this result transmit lola reference range : <=5. The reference range was not used to interpr et this result as masoud l/abnormal. [facility] AND [id number] 20:40:00 Test Item Value Reference Range Interpretation Comments UA Sq Epi (test code = UA Sq Epi) Many /LPF [facility] AND [id number] 20:40:00 Test Item Value Reference Range Interpretation Comments UA RBC (test code = 3 See_Comment [Automa lola message] The UA RBC) system which ge nerated this result transmit lola reference range : <=2. The reference range was not used to interpr et this result as masoud l/abnormal. [facility] AND [id number] 20:40:00 Test Item Value Reference Range Interpretation Comments UA pH (test code = UA pH) 5.5 5.0-8.0 [facility] AND [id number] 20:40:00 Test Item Value Reference Range Interpretation Comments UA Spec Grav (test code = UA Spec Grav) 1.017 [facility] AND [id number] 20:40:00 Test Item Value Reference Range Interpretation Comments UA Glucose (test code = UA Negative mg/dL Glucose) [facility] AND [id number] 20:40:00 Test Item Value Reference Range Interpretation Comments UA Protein (test code = UA Negative mg/dL Protein) [facility] AND [id number] 20:40:00 Test Item Value Reference Range Interpretation Comments UA Blood (test code = Negative (12/28/13 3:40 UA Blood) PM) [facility] AND [id number] 20:40:00 Test Item Value Reference Range Interpretation Comments UA Bili (test code = Negative *NA*(12/28/13 UA Bili) 3:40 PM) [facility] AND [id number] 20:40:00 Test Item Value Reference Range Interpretation Comments UA Ketones (test code = UA Negative mg/dL Ketones) [facility] AND [id number] 20:40:00 Test Item Value Reference Range Interpretation Comments UA Color (test code = Yellow *NA*(12/28/13 UA Color) 3:40 PM) [facility] AND [id number] 20:40:00 Test Item Value Reference Range Interpretation Comments UA Turbidity (test code Slight *ABN*(12/28/13 = UA Turbidity) 3:40 PM) [facility]2014-10-23 20:40:00 Test Item Value Reference Range Interpretation Comments A/G Ratio (test code = A/G Ratio) 1.4 0.7-1.6 [facility]2014-10-23 20:40:00 Test Item Value Reference Range Interpretation Comments AGAP (test code = AGAP) 10.0 10.0-20.0 [facility]2014-10-23 20:40:00 Test Item Value Reference Range Interpretation Comments Globulin (test code = Globulin) 3.0 2.0-4.0 [facility]2014-10-23 20:40:00 Test Item Value Reference Range Interpretation Comments B/C Ratio (test code = B/C Ratio) 24 6-25 [facility]2014-10-23 20:40:00 Test Item Value Reference Range Interpretation Comments eGFR (test code = eGFR) 63 [facility]2014-10-23 20:40:00 Test Item Value Reference Range Interpretation Comments Bili Total (test code = Bili Total) 0.1 0.2-1.3 [facility]2014-10-23 20:40:00 Test Item Value Reference Range Interpretation Comments Calcium Lvl (test code = Calcium Lvl) 8.9 8.5-10.5 [facility]2014-10-23 20:40:00 Test Item Value Reference Range Interpretation Comments CO2 (test code = CO2) 25 24-32 [facility]2014-10-23 20:40:00 Test Item Value Reference Range Interpretation Comments Albumin Lvl (test code = Albumin Lvl) 4.1 3.5-5.0 [facility]2014-10-23 20:40:00 Test Item Value Reference Range Interpretation Comments ALT (test code = ALT) 21 See_Comment [Auto mated message] The system which ge nerated this result transmit lola reference range : <=65. The reference range was not used to interpr et this result as masoud l/abnormal. [facility]2014-10-23 20:40:00 Test Item Value Reference Range Interpretation Comments Total Protein (test code = Total 7.1 6.4-8.4 Protein) [facility]2014-10-23 20:40:00 Test Item Value Reference Range Interpretation Comments Alk Phos (test code = Alk Phos) 132 39-136 [facility]2014-10-23 20:40:00 Test Item Value Reference Range Interpretation Comments AST (test code = AST) 13 See_Comment [Auto mated message] The system which ge nerated this result transmit lola reference range : <=37. The reference range was not used to interpr et this result as masoud l/abnormal. [facility]2014-10-23 20:40:00 Test Item Value Reference Range Interpretation Comments Sodium Lvl (test code = Sodium Lvl) 141 135-145 [facility]2014-10-23 20:40:00 Test Item Value Reference Range Interpretation Comments BUN (test code = BUN) 24 7-22 [facility]2014-10-23 20:40:00 Test Item Value Reference Range Interpretation Comments Creatinine Lvl (test code = Creatinine 1.0 0.5-1.4 Lvl) [facility]2014-10-23 20:40:00 Test Item Value Reference Range Interpretation Comments Potassium Lvl (test code = Potassium 4.0 3.5-5.1 Lvl) [facility]2014-10-23 20:40:00 Test Item Value Reference Range Interpretation Comments Chloride Lvl (test code = Chloride Lvl) 110 95-109 [facility]2014-10-23 20:40:00 Test Item Value Reference Range Interpretation Comments Glucose Lvl (test code = Glucose Lvl) 91 70-99 [facility] HospitalHmlzpfhNKYGFXOWKR1688-63-36 20:40:00 Test Item Value Reference Range Interpretation Comments Eosinophils # (test code 0.1 See_Comment [A utomated message] The = Eosinophils #) system whic h generated this result tra nsmitted reference range : <=0.5. The reference r morales was not used to int erpret this result as normal/abnormal . [facility] HospitalQszhjsqPHXXUZLDHH1076-99-35 20:40:00 Test Item Value Reference Range Interpretation Comments Basophils # (test code 0.0 See_Comment [Aut omated message] The = Basophils #) system which generated this result tra nsmitted reference range : <=0.2. The reference r morales was not used to int erpret this result as normal/abnormal . [facility] HospitalGpboxguAZEDERYOAT8733-87-99 20:40:00 Test Item Value Reference Range Interpretation Comments Basophils (test code = 0.1 See_Comment [Aut omated message] The Basophils) system which ge nerated this result tra nsmitted reference range : <=1.0. The reference r morales was not used to int erpret this result as normal/abnormal . [facility] HospitalOlhqhjqDVANYKNJKS7808-06-79 20:40:00 Test Item Value Reference Range Interpretation Comments Lymphocytes # (test code = Lymphocytes 2.6 1.0-5.5 #) [facility] HospitalDbectfjVWVNIKQHTX5630-33-73 20:40:00 Test Item Value Reference Range Interpretation Comments Monocytes # (test code 0.6 See_Comment [Aut omated message] The = Monocytes #) system which generated this result tra nsmitted reference range : <=0.8. The reference r morales was not used to int erpret this result as normal/abnormal . [facility] HospitalTcnhybwAWPHPKQTZV5464-69-17 20:40:00 Test Item Value Reference Range Interpretation Comments Segs-Bands # (test code = Segs-Bands #) 4.7 1.5-8.1 [facility] HospitalPzhvpygXYBSBFUFOI5048-90-69 20:40:00 Test Item Value Reference Range Interpretation Comments Segs (test code = Segs) 58.3 45.0-75.0 [facility] HospitalFmohwihELGAWEBSNR3523-96-84 20:40:00 Test Item Value Reference Range Interpretation Comments Lymphocytes (test code = Lymphocytes) 32.6 20.0-40.0 [facility] HospitalRqqhkjsPMUKHVJFBS7562-76-32 20:40:00 Test Item Value Reference Range Interpretation Comments Eosinophils (test code = 1.7 See_Comment [A utomated message] The Eosinophils) system which ge nerated this result tra nsmitted reference range : <=4.0. The reference r morales was not used to int erpret this result as normal/abnormal . [facility] HospitalNbiuwobWYOFOVXHNH7424-70-94 20:40:00 Test Item Value Reference Range Interpretation Comments Monocytes (test code = Monocytes) 7.3 2.0-12.0 [facility] HospitalCyukpyaWWNXVBKHEW8428-53-59 20:40:00 Test Item Value Reference Range Interpretation Comments MPV (test code = MPV) 8.6 7.4-10.4 [facility] HospitalZqviivcHYOODGPONQ8273-62-56 20:40:00 Test Item Value Reference Range Interpretation Comments WBC (test code = WBC) 8.0 3.7-10.4 [facility] HospitalOnmwvezTIBDMJHYCV5781-87-71 20:40:00 Test Item Value Reference Range Interpretation Comments MCH (test code = MCH) 29.1 pg 27.0-31.0 [facility] HospitalMroyazpRASESBBGOZ3319-84-01 20:40:00 Test Item Value Reference Range Interpretation Comments RDW (test code = RDW) 18.5 11.5-14.5 [facility] HospitalWccvlplPVGORKDTVE5197-01-81 20:40:00 Test Item Value Reference Range Interpretation Comments MCHC (test code = MCHC) 32.8 32.0-36.0 [facility] HospitalBwdgutkMLHZWAACJN7961-66-95 20:40:00 Test Item Value Reference Range Interpretation Comments Platelet (test code = Platelet) 231 133-450 [facility] HospitalVxfykcxVARXUXHSOV3016-21-31 20:40:00 Test Item Value Reference Range Interpretation Comments MCV (test code = MCV) 88.9 80.0-98.0 [facility] HospitalRqaqgnqTSORMYPNDX9646-51-27 20:40:00 Test Item Value Reference Range Interpretation Comments RBC (test code = RBC) 4.14 4.20-5.40 [facility] HospitalGnmyafsUIMAIGNAYZ2513-40-64 20:40:00 Test Item Value Reference Range Interpretation Comments Hct (test code = Hct) 36.8 36.0-48.0 [facility] HospitalZljxpkqJLQIOOOPFP5366-75-01 20:40:00 Test Item Value Reference Range Interpretation Comments Hgb (test code = Hgb) 12.1 12.0-16.0 [facility] HospitalOlmspxdNIOAKJWQFL7035-71-26 20:40:00 Test Item Value Reference Range Interpretation Comments PTT (test code = PTT) 31.3 s 22.9-35.8 [id number] 20:40:00 Test Item Value Reference Range Interpretation Comments INR (test code = INR) 0.85 0.85-1.17 [id number] 20:40:00 Test Item Value Reference Range Interpretation Comments PT (test code = PT) 11.6 s 12.0-14.7 [facility] AND [id number] 20:40:00 Test Item Value Reference Range Interpretation Comments UA Urobilinogen (test code = UA <=1.0 mg/dL 0.1-1.0 Urobilinogen) [facility] AND [id number] 20:40:00 Test Item Value Reference Range Interpretation Comments UA Mucus (test code = UA Mucus) Few /LPF [facility] AND [id number] 20:40:00 Test Item Value Reference Range Interpretation Comments UA Leuk Est (test code Small *ABN*(12/28/13 = UA Leuk Est) 3:40 PM) [facility] AND [id number] 20:40:00 Test Item Value Reference Range Interpretation Comments UA Nitrite (test code Negative (12/28/13 3:40 = UA Nitrite) PM) [facility] AND [id number] 20:40:00 Test Item Value Reference Range Interpretation Comments UA WBC (test code = 7 See_Comment [Automa lola message] The UA WBC) system which ge nerated this result transmit lola reference range : <=5. The reference range was not used to interpr et this result as masoud l/abnormal. [facility] AND [id number] 20:40:00 Test Item Value Reference Range Interpretation Comments UA Sq Epi (test code = UA Sq Epi) Many /LPF [facility] AND [id number] 20:40:00 Test Item Value Reference Range Interpretation Comments UA RBC (test code = 3 See_Comment [Automa lola message] The UA RBC) system which ge nerated this result transmit lola reference range : <=2. The reference range was not used to interpr et this result as masoud l/abnormal. [facility] AND [id number] 20:40:00 Test Item Value Reference Range Interpretation Comments UA pH (test code = UA pH) 5.5 5.0-8.0 [facility] AND [id number] 20:40:00 Test Item Value Reference Range Interpretation Comments UA Spec Grav (test code = UA Spec Grav) 1.017 [facility] AND [id number] 20:40:00 Test Item Value Reference Range Interpretation Comments UA Glucose (test code = UA Negative mg/dL Glucose) [facility] AND [id number] 20:40:00 Test Item Value Reference Range Interpretation Comments UA Protein (test code = UA Negative mg/dL Protein) [facility] AND [id number] 20:40:00 Test Item Value Reference Range Interpretation Comments UA Blood (test code = Negative (12/28/13 3:40 UA Blood) PM) [facility] AND [id number] 20:40:00 Test Item Value Reference Range Interpretation Comments UA Bili (test code = Negative *NA*(12/28/13 UA Bili) 3:40 PM) [facility] AND [id number] 20:40:00 Test Item Value Reference Range Interpretation Comments UA Ketones (test code = UA Negative mg/dL Ketones) [facility] AND [id number] 20:40:00 Test Item Value Reference Range Interpretation Comments UA Color (test code = Yellow *NA*(12/28/13 UA Color) 3:40 PM) [facility] AND [id number] 20:40:00 Test Item Value Reference Range Interpretation Comments UA Turbidity (test code Slight *ABN*(12/28/13 = UA Turbidity) 3:40 PM) [facility]2014-10-23 20:40:00 Test Item Value Reference Range Interpretation Comments A/G Ratio (test code = A/G Ratio) 1.4 0.7-1.6 [facility]2014-10-23 20:40:00 Test Item Value Reference Range Interpretation Comments AGAP (test code = AGAP) 10.0 10.0-20.0 [facility]2014-10-23 20:40:00 Test Item Value Reference Range Interpretation Comments Globulin (test code = Globulin) 3.0 2.0-4.0 [facility]2014-10-23 20:40:00 Test Item Value Reference Range Interpretation Comments B/C Ratio (test code = B/C Ratio) 24 6-25 [facility]2014-10-23 20:40:00 Test Item Value Reference Range Interpretation Comments eGFR (test code = eGFR) 63 [facility]2014-10-23 20:40:00 Test Item Value Reference Range Interpretation Comments Bili Total (test code = Bili Total) 0.1 0.2-1.3 [facility]2014-10-23 20:40:00 Test Item Value Reference Range Interpretation Comments Calcium Lvl (test code = Calcium Lvl) 8.9 8.5-10.5 [facility]2014-10-23 20:40:00 Test Item Value Reference Range Interpretation Comments CO2 (test code = CO2) 25 24-32 [facility]2014-10-23 20:40:00 Test Item Value Reference Range Interpretation Comments Albumin Lvl (test code = Albumin Lvl) 4.1 3.5-5.0 [facility]2014-10-23 20:40:00 Test Item Value Reference Range Interpretation Comments ALT (test code = ALT) 21 See_Comment [Auto mated message] The system which ge nerated this result transmit lola reference range : <=65. The reference range was not used to interpr et this result as masoud l/abnormal. [facility]2014-10-23 20:40:00 Test Item Value Reference Range Interpretation Comments Total Protein (test code = Total 7.1 6.4-8.4 Protein) [facility]2014-10-23 20:40:00 Test Item Value Reference Range Interpretation Comments Alk Phos (test code = Alk Phos) 132 39-136 [facility]2014-10-23 20:40:00 Test Item Value Reference Range Interpretation Comments AST (test code = AST) 13 See_Comment [Auto mated message] The system which ge nerated this result transmit lola reference range : <=37. The reference range was not used to interpr et this result as masoud l/abnormal. [facility]2014-10-23 20:40:00 Test Item Value Reference Range Interpretation Comments Sodium Lvl (test code = Sodium Lvl) 141 135-145 [facility]2014-10-23 20:40:00 Test Item Value Reference Range Interpretation Comments BUN (test code = BUN) 24 7-22 [facility]2014-10-23 20:40:00 Test Item Value Reference Range Interpretation Comments Creatinine Lvl (test code = Creatinine 1.0 0.5-1.4 Lvl) [facility]2014-10-23 20:40:00 Test Item Value Reference Range Interpretation Comments Potassium Lvl (test code = Potassium 4.0 3.5-5.1 Lvl) [facility]2014-10-23 20:40:00 Test Item Value Reference Range Interpretation Comments Chloride Lvl (test code = Chloride Lvl) 110 95-109 [facility]2014-10-23 20:40:00 Test Item Value Reference Range Interpretation Comments Glucose Lvl (test code = Glucose Lvl) 91 70-99 [facility] H[id number] 20:40:00 Test Item Value Reference Range Interpretation Comments Eosinophils # (test code 0.1 See_Comment [A utomated message] The = Eosinophils #) system whic h generated this result tra nsmitted reference range : <=0.5. The reference r morales was not used to int erpret this result as normal/abnormal . [facility] Ho[id number] 20:40:00 Test Item Value Reference Range Interpretation Comments Basophils # (test code 0.0 See_Comment [Aut omated message] The = Basophils #) system which generated this result tra nsmitted reference range : <=0.2. The reference r morales was not used to int erpret this result as normal/abnormal . [facility] Hospit[id number] 20:40:00 Test Item Value Reference Range Interpretation Comments Basophils (test code = 0.1 See_Comment [Aut omated message] The Basophils) system which ge nerated this result tra nsmitted reference range : <=1.0. The reference r morales was not used to int erpret this result as normal/abnormal . [facility] HospitalSykiymnHILJRTFFOX6814-29-98 20:40:00 Test Item Value Reference Range Interpretation Comments Lymphocytes # (test code = Lymphocytes 2.6 1.0-5.5 #) [facility] H[id number] 20:40:00 Test Item Value Reference Range Interpretation Comments Monocytes # (test code 0.6 See_Comment [Aut omated message] The = Monocytes #) system which generated this result tra nsmitted reference range : <=0.8. The reference r morales was not used to int erpret this result as normal/abnormal . [facility] H[id number] 20:40:00 Test Item Value Reference Range Interpretation Comments Segs-Bands # (test code = Segs-Bands #) 4.7 1.5-8.1 [facility] Hospit[id number] 20:40:00 Test Item Value Reference Range Interpretation Comments Segs (test code = Segs) 58.3 45.0-75.0 [facility] HospitalGjsejayDCYVPAWDGV4948-28-78 20:40:00 Test Item Value Reference Range Interpretation Comments Lymphocytes (test code = Lymphocytes) 32.6 20.0-40.0 [facility] HospitalZzhnfzlBNCLURZJZD5588-04-26 20:40:00 Test Item Value Reference Range Interpretation Comments Eosinophils (test code = 1.7 See_Comment [A utomated message] The Eosinophils) system which ge nerated this result tra nsmitted reference range : <=4.0. The reference r morales was not used to int erpret this result as normal/abnormal . [facility] HospitalNvuzppfAVVJCPFFOI4990-11-74 20:40:00 Test Item Value Reference Range Interpretation Comments Monocytes (test code = Monocytes) 7.3 2.0-12.0 [facility] HospitalDvfryywBAECUQBPAP1270-69-10 20:40:00 Test Item Value Reference Range Interpretation Comments MPV (test code = MPV) 8.6 7.4-10.4 [facility] HospitalWzgcybtOIOWNATRON1708-05-07 20:40:00 Test Item Value Reference Range Interpretation Comments WBC (test code = WBC) 8.0 3.7-10.4 [facility] Hos[id number] 20:40:00 Test Item Value Reference Range Interpretation Comments MCH (test code = MCH) 29.1 pg 27.0-31.0 [facility] HospitalIenxgdfFMGIOPKLNY0806-64-79 20:40:00 Test Item Value Reference Range Interpretation Comments RDW (test code = RDW) 18.5 11.5-14.5 [facility] HospitalJyhjrykNUMWPKRTGP8490-15-24 20:40:00 Test Item Value Reference Range Interpretation Comments MCHC (test code = MCHC) 32.8 32.0-36.0 [facility] HospitalHsfkrlnVBXRFJFYJW8115-25-98 20:40:00 Test Item Value Reference Range Interpretation Comments Platelet (test code = Platelet) 231 133-450 [facility] HospitalOhwliagWQVYGYJTPS7371-98-15 20:40:00 Test Item Value Reference Range Interpretation Comments MCV (test code = MCV) 88.9 80.0-98.0 [facility] HospitalOtlhbumMJDFMPYMVQ7373-00-85 20:40:00 Test Item Value Reference Range Interpretation Comments RBC (test code = RBC) 4.14 4.20-5.40 [facility] HospitalGkpkoivBFUVKKRAWE8931-46-36 20:40:00 Test Item Value Reference Range Interpretation Comments Hct (test code = Hct) 36.8 36.0-48.0 [facility] HospitalCrqcwnySBDDNMKMYK3241-88-01 20:40:00 Test Item Value Reference Range Interpretation Comments Hgb (test code = Hgb) 12.1 12.0-16.0 [facility] HospitalBowetmtTPCOWYBHXI6136-13-74 20:40:00 Test Item Value Reference Range Interpretation Comments PTT (test code = PTT) 31.3 s 22.9-35.8 [facility] HospitalNeovorbUKAEZEBMNK7918-18-69 20:40:00 Test Item Value Reference Range Interpretation Comments INR (test code = INR) 0.85 0.85-1.17 [facility] HospitalFobckvwMTHEYVQBME9156-96-15 20:40:00 Test Item Value Reference Range Interpretation Comments PT (test code = PT) 11.6 s 12.0-14.7 [facility] AND [id number] 20:40:00 Test Item Value Reference Range Interpretation Comments UA Urobilinogen (test code = UA <=1.0 mg/dL 0.1-1.0 Urobilinogen) [facility] AND [id number] 20:40:00 Test Item Value Reference Range Interpretation Comments UA Mucus (test code = UA Mucus) Few /LPF [facility] AND [id number] 20:40:00 Test Item Value Reference Range Interpretation Comments UA Leuk Est (test code Small *ABN*(12/28/13 = UA Leuk Est) 3:40 PM) [facility] AND [id number] 20:40:00 Test Item Value Reference Range Interpretation Comments UA Nitrite (test code Negative (12/28/13 3:40 = UA Nitrite) PM) [facility] AND [id number] 20:40:00 Test Item Value Reference Range Interpretation Comments UA WBC (test code = 7 See_Comment [Automa lola message] The UA WBC) system which ge nerated this result transmit lola reference range : <=5. The reference range was not used to interpr et this result as masoud l/abnormal. [facility] AND [id number] 20:40:00 Test Item Value Reference Range Interpretation Comments UA Sq Epi (test code = UA Sq Epi) Many /LPF [facility] AND [id number] 20:40:00 Test Item Value Reference Range Interpretation Comments UA RBC (test code = 3 See_Comment [Automa lola message] The UA RBC) system which ge nerated this result transmit lola reference range : <=2. The reference range was not used to interpr et this result as masoud l/abnormal. [facility] AND [id number] 20:40:00 Test Item Value Reference Range Interpretation Comments UA pH (test code = UA pH) 5.5 5.0-8.0 [facility] AND [id number] 20:40:00 Test Item Value Reference Range Interpretation Comments UA Spec Grav (test code = UA Spec Grav) 1.017 [facility] AND [id number] 20:40:00 Test Item Value Reference Range Interpretation Comments UA Glucose (test code = UA Negative mg/dL Glucose) [facility] AND [id number] 20:40:00 Test Item Value Reference Range Interpretation Comments UA Protein (test code = UA Negative mg/dL Protein) [facility] AND [id number] 20:40:00 Test Item Value Reference Range Interpretation Comments UA Blood (test code = Negative (12/28/13 3:40 UA Blood) PM) [facility] AND [id number] 20:40:00 Test Item Value Reference Range Interpretation Comments UA Bili (test code = Negative *NA*(12/28/13 UA Bili) 3:40 PM) [facility] AND [id number] 20:40:00 Test Item Value Reference Range Interpretation Comments UA Ketones (test code = UA Negative mg/dL Ketones) [facility] AND [id number] 20:40:00 Test Item Value Reference Range Interpretation Comments UA Color (test code = Yellow *NA*(12/28/13 UA Color) 3:40 PM) [facility] AND [id number] 20:40:00 Test Item Value Reference Range Interpretation Comments UA Turbidity (test code Slight *ABN*(12/28/13 = UA Turbidity) 3:40 PM) [facility]2014-10-23 20:40:00 Test Item Value Reference Range Interpretation Comments A/G Ratio (test code = A/G Ratio) 1.4 0.7-1.6 [facility]2014-10-23 20:40:00 Test Item Value Reference Range Interpretation Comments AGAP (test code = AGAP) 10.0 10.0-20.0 [facility]2014-10-23 20:40:00 Test Item Value Reference Range Interpretation Comments Globulin (test code = Globulin) 3.0 2.0-4.0 [facility]2014-10-23 20:40:00 Test Item Value Reference Range Interpretation Comments B/C Ratio (test code = B/C Ratio) 24 6-25 [facility]2014-10-23 20:40:00 Test Item Value Reference Range Interpretation Comments eGFR (test code = eGFR) 63 [facility]2014-10-23 20:40:00 Test Item Value Reference Range Interpretation Comments Bili Total (test code = Bili Total) 0.1 0.2-1.3 [facility]2014-10-23 20:40:00 Test Item Value Reference Range Interpretation Comments Calcium Lvl (test code = Calcium Lvl) 8.9 8.5-10.5 [facility]2014-10-23 20:40:00 Test Item Value Reference Range Interpretation Comments CO2 (test code = CO2) 25 24-32 [facility]2014-10-23 20:40:00 Test Item Value Reference Range Interpretation Comments Albumin Lvl (test code = Albumin Lvl) 4.1 3.5-5.0 [facility]2014-10-23 20:40:00 Test Item Value Reference Range Interpretation Comments ALT (test code = ALT) 21 See_Comment [Auto mated message] The system which ge nerated this result transmit lola reference range : <=65. The reference range was not used to interpr et this result as masoud l/abnormal. [facility]2014-10-23 20:40:00 Test Item Value Reference Range Interpretation Comments Total Protein (test code = Total 7.1 6.4-8.4 Protein) [facility]2014-10-23 20:40:00 Test Item Value Reference Range Interpretation Comments Alk Phos (test code = Alk Phos) 132 39-136 [facility]2014-10-23 20:40:00 Test Item Value Reference Range Interpretation Comments AST (test code = AST) 13 See_Comment [Auto mated message] The system which ge nerated this result transmit lola reference range : <=37. The reference range was not used to interpr et this result as masoud l/abnormal. [facility]2014-10-23 20:40:00 Test Item Value Reference Range Interpretation Comments Sodium Lvl (test code = Sodium Lvl) 141 135-145 [facility]2014-10-23 20:40:00 Test Item Value Reference Range Interpretation Comments BUN (test code = BUN) 24 7-22 [facility]2014-10-23 20:40:00 Test Item Value Reference Range Interpretation Comments Creatinine Lvl (test code = Creatinine 1.0 0.5-1.4 Lvl) [facility]2014-10-23 20:40:00 Test Item Value Reference Range Interpretation Comments Potassium Lvl (test code = Potassium 4.0 3.5-5.1 Lvl) [facility]2014-10-23 20:40:00 Test Item Value Reference Range Interpretation Comments Chloride Lvl (test code = Chloride Lvl) 110 95-109 [facility]2014-10-23 20:40:00 Test Item Value Reference Range Interpretation Comments Glucose Lvl (test code = Glucose Lvl) 91 70-99 [facility] H[id number] 20:40:00 Test Item Value Reference Range Interpretation Comments Eosinophils # (test code 0.1 See_Comment [A utomated message] The = Eosinophils #) system whic h generated this result tra nsmitted reference range : <=0.5. The reference r morales was not used to int erpret this result as normal/abnormal . [facility] HospitalPcawceiXIEUFBINZL2110-06-75 20:40:00 Test Item Value Reference Range Interpretation Comments Basophils # (test code 0.0 See_Comment [Aut omated message] The = Basophils #) system which generated this result tra nsmitted reference range : <=0.2. The reference r morales was not used to int erpret this result as normal/abnormal . [facility] HospitalFkbrdcsSXBMQDUHGW9771-34-02 20:40:00 Test Item Value Reference Range Interpretation Comments Basophils (test code = 0.1 See_Comment [Aut omated message] The Basophils) system which ge nerated this result tra nsmitted reference range : <=1.0. The reference r morales was not used to int erpret this result as normal/abnormal . [facility] HospitalGznonsbHUZATBPTWT3355-16-13 20:40:00 Test Item Value Reference Range Interpretation Comments Lymphocytes # (test code = Lymphocytes 2.6 1.0-5.5 #) [facility] HospitalZqoqikoDWRGBSFWTQ6814-94-78 20:40:00 Test Item Value Reference Range Interpretation Comments Monocytes # (test code 0.6 See_Comment [Aut omated message] The = Monocytes #) system which generated this result tra nsmitted reference range : <=0.8. The reference r morales was not used to int erpret this result as normal/abnormal . [facility] HospitalTixuqnxPNZHMCXYZG3588-01-64 20:40:00 Test Item Value Reference Range Interpretation Comments Segs-Bands # (test code = Segs-Bands #) 4.7 1.5-8.1 [facility] Hos[id number] 20:40:00 Test Item Value Reference Range Interpretation Comments Segs (test code = Segs) 58.3 45.0-75.0 [facility] HospitalFmppmzsSDPDEKZMQZ2854-08-30 20:40:00 Test Item Value Reference Range Interpretation Comments Lymphocytes (test code = Lymphocytes) 32.6 20.0-40.0 [facility] HospitalVrftxueTOMJUXKYFA7615-27-28 20:40:00 Test Item Value Reference Range Interpretation Comments Eosinophils (test code = 1.7 See_Comment [A utomated message] The Eosinophils) system which ge nerated this result tra nsmitted reference range : <=4.0. The reference r morales was not used to int erpret this result as normal/abnormal . [facility] HospitalNsqsjvhYMYBVVSLQH9333-80-28 20:40:00 Test Item Value Reference Range Interpretation Comments Monocytes (test code = Monocytes) 7.3 2.0-12.0 [facility] HospitalMrbholaTEOBTCMHHX6362-04-61 20:40:00 Test Item Value Reference Range Interpretation Comments MPV (test code = MPV) 8.6 7.4-10.4 [facility] HospitalTsweijhSLUYJPAEAY1216-67-06 20:40:00 Test Item Value Reference Range Interpretation Comments WBC (test code = WBC) 8.0 3.7-10.4 [facility] HospitalHbsthhrDLFGMDQXYG1497-13-86 20:40:00 Test Item Value Reference Range Interpretation Comments MCH (test code = MCH) 29.1 pg 27.0-31.0 [facility] HospitalCgjqjegMXOJLSQDSL7830-14-01 20:40:00 Test Item Value Reference Range Interpretation Comments RDW (test code = RDW) 18.5 11.5-14.5 [facility] HospitalCdtwjttPBUQMOSENW6850-28-92 20:40:00 Test Item Value Reference Range Interpretation Comments MCHC (test code = MCHC) 32.8 32.0-36.0 [facility] HospitalMydfezlGWKCTGHTGF7768-28-61 20:40:00 Test Item Value Reference Range Interpretation Comments Platelet (test code = Platelet) 231 133-450 [facility] HospitalFfxehbiVBDRSSFUES2106-86-83 20:40:00 Test Item Value Reference Range Interpretation Comments MCV (test code = MCV) 88.9 80.0-98.0 [facility] HospitalGabrletONVRKTDRIO3684-06-60 20:40:00 Test Item Value Reference Range Interpretation Comments RBC (test code = RBC) 4.14 4.20-5.40 [facility] HospitalYceeaplVKRLHRIHLL3856-76-86 20:40:00 Test Item Value Reference Range Interpretation Comments Hct (test code = Hct) 36.8 36.0-48.0 [facility] Hospit[id number] 20:40:00 Test Item Value Reference Range Interpretation Comments Hgb (test code = Hgb) 12.1 12.0-16.0 [facility] HospitalIvrtahgKMBSTIHDQW3160-40-55 20:40:00 Test Item Value Reference Range Interpretation Comments PTT (test code = PTT) 31.3 s 22.9-35.8 [facility] HospitalVqqlhurQDREJBMCFG3082-33-50 20:40:00 Test Item Value Reference Range Interpretation Comments INR (test code = INR) 0.85 0.85-1.17 [facility] HospitalZbhyyrqDRVCCZMHEA7952-54-28 20:40:00 Test Item Value Reference Range Interpretation Comments PT (test code = PT) 11.6 s 12.0-14.7 [facility] [id number] 20:40:00 Test Item Value Reference Range Interpretation Comments UA Urobilinogen (test code = UA <=1.0 mg/dL 0.1-1.0 Urobilinogen) [facility] AND [id number] 20:40:00 Test Item Value Reference Range Interpretation Comments UA Mucus (test code = UA Mucus) Few /LPF [facility] AND [id number] 20:40:00 Test Item Value Reference Range Interpretation Comments UA Leuk Est (test code Small *ABN*(12/28/13 = UA Leuk Est) 3:40 PM) [facility] AND [id number] 20:40:00 Test Item Value Reference Range Interpretation Comments UA Nitrite (test code Negative (12/28/13 3:40 = UA Nitrite) PM) [facility] AND [id number] 20:40:00 Test Item Value Reference Range Interpretation Comments UA WBC (test code = 7 See_Comment [Automa lola message] The UA WBC) system which ge nerated this result transmit lola reference range : <=5. The reference range was not used to interpr et this result as masoud l/abnormal. [facility] AND [id number] 20:40:00 Test Item Value Reference Range Interpretation Comments UA Sq Epi (test code = UA Sq Epi) Many /LPF [facility] AND [id number] 20:40:00 Test Item Value Reference Range Interpretation Comments UA RBC (test code = 3 See_Comment [Automa lola message] The UA RBC) system which ge nerated this result transmit lola reference range : <=2. The reference range was not used to interpr et this result as masoud l/abnormal. [facility] AND [id number] 20:40:00 Test Item Value Reference Range Interpretation Comments UA pH (test code = UA pH) 5.5 5.0-8.0 [facility] AND [id number] 20:40:00 Test Item Value Reference Range Interpretation Comments UA Spec Grav (test code = UA Spec Grav) 1.017 [facility] AND [id number] 20:40:00 Test Item Value Reference Range Interpretation Comments UA Glucose (test code = UA Negative mg/dL Glucose) [facility] AND [id number] 20:40:00 Test Item Value Reference Range Interpretation Comments UA Protein (test code = UA Negative mg/dL Protein) [facility] [id number] 20:40:00 Test Item Value Reference Range Interpretation Comments UA Blood (test code = Negative (12/28/13 3:40 UA Blood) PM) [facility] AND [id number] 20:40:00 Test Item Value Reference Range Interpretation Comments UA Bili (test code = Negative *NA*(12/28/13 UA Bili) 3:40 PM) [facility] AND [id number] 20:40:00 Test Item Value Reference Range Interpretation Comments UA Ketones (test code = UA Negative mg/dL Ketones) [facility] AND [id number] 20:40:00 Test Item Value Reference Range Interpretation Comments UA Color (test code = Yellow *NA*(12/28/13 UA Color) 3:40 PM) [facility] AND [id number] 20:40:00 Test Item Value Reference Range Interpretation Comments UA Turbidity (test code Slight *ABN*(12/28/13 = UA Turbidity) 3:40 PM) [facility]2014-10-23 20:40:00 Test Item Value Reference Range Interpretation Comments A/G Ratio (test code = A/G Ratio) 1.4 0.7-1.6 [facility]2014-10-23 20:40:00 Test Item Value Reference Range Interpretation Comments AGAP (test code = AGAP) 10.0 10.0-20.0 [facility]2014-10-23 20:40:00 Test Item Value Reference Range Interpretation Comments Globulin (test code = Globulin) 3.0 2.0-4.0 [facility]2014-10-23 20:40:00 Test Item Value Reference Range Interpretation Comments B/C Ratio (test code = B/C Ratio) 24 6-25 [facility]2014-10-23 20:40:00 Test Item Value Reference Range Interpretation Comments eGFR (test code = eGFR) 63 [facility]2014-10-23 20:40:00 Test Item Value Reference Range Interpretation Comments Bili Total (test code = Bili Total) 0.1 0.2-1.3 [facility]2014-10-23 20:40:00 Test Item Value Reference Range Interpretation Comments Calcium Lvl (test code = Calcium Lvl) 8.9 8.5-10.5 [facility]2014-10-23 20:40:00 Test Item Value Reference Range Interpretation Comments CO2 (test code = CO2) 25 24-32 [facility]2014-10-23 20:40:00 Test Item Value Reference Range Interpretation Comments Albumin Lvl (test code = Albumin Lvl) 4.1 3.5-5.0 [facility]2014-10-23 20:40:00 Test Item Value Reference Range Interpretation Comments ALT (test code = ALT) 21 See_Comment [Auto mated message] The system which ge nerated this result transmit lola reference range : <=65. The reference range was not used to interpr et this result as masoud l/abnormal. [facility]2014-10-23 20:40:00 Test Item Value Reference Range Interpretation Comments Total Protein (test code = Total 7.1 6.4-8.4 Protein) [facility]2014-10-23 20:40:00 Test Item Value Reference Range Interpretation Comments Alk Phos (test code = Alk Phos) 132 39-136 [facility]2014-10-23 20:40:00 Test Item Value Reference Range Interpretation Comments AST (test code = AST) 13 See_Comment [Auto mated message] The system which ge nerated this result transmit lola reference range : <=37. The reference range was not used to interpr et this result as masoud l/abnormal. [facility]2014-10-23 20:40:00 Test Item Value Reference Range Interpretation Comments Sodium Lvl (test code = Sodium Lvl) 141 135-145 [facility]2014-10-23 20:40:00 Test Item Value Reference Range Interpretation Comments BUN (test code = BUN) 24 7-22 [facility]2014-10-23 20:40:00 Test Item Value Reference Range Interpretation Comments Creatinine Lvl (test code = Creatinine 1.0 0.5-1.4 Lvl) [facility]2014-10-23 20:40:00 Test Item Value Reference Range Interpretation Comments Potassium Lvl (test code = Potassium 4.0 3.5-5.1 Lvl) [facility]2014-10-23 20:40:00 Test Item Value Reference Range Interpretation Comments Chloride Lvl (test code = Chloride Lvl) 110 95-109 [facility]2014-10-23 20:40:00 Test Item Value Reference Range Interpretation Comments Glucose Lvl (test code = Glucose Lvl) 91 70-99 [id number] 20:40:00 Test Item Value Reference Range Interpretation Comments Eosinophils # (test code 0.1 See_Comment [A utomated message] The = Eosinophils #) system whic h generated this result tra nsmitted reference range : <=0.5. The reference r morales was not used to int erpret this result as normal/abnormal . [id number] 20:40:00 Test Item Value Reference Range Interpretation Comments Basophils # (test code 0.0 See_Comment [Aut omated message] The = Basophils #) system which generated this result tra nsmitted reference range : <=0.2. The reference r morales was not used to int erpret this result as normal/abnormal . [facility] [id number] 20:40:00 Test Item Value Reference Range Interpretation Comments Basophils (test code = 0.1 See_Comment [Aut omated message] The Basophils) system which ge nerated this result tra nsmitted reference range : <=1.0. The reference r morales was not used to int erpret this result as normal/abnormal . [facility] [id number] 20:40:00 Test Item Value Reference Range Interpretation Comments Lymphocytes # (test code = Lymphocytes 2.6 1.0-5.5 #) [facility] H[id number] 20:40:00 Test Item Value Reference Range Interpretation Comments Monocytes # (test code 0.6 See_Comment [Aut omated message] The = Monocytes #) system which generated this result tra nsmitted reference range : <=0.8. The reference r morales was not used to int erpret this result as normal/abnormal . [facility] H[id number] 20:40:00 Test Item Value Reference Range Interpretation Comments Segs-Bands # (test code = Segs-Bands #) 4.7 1.5-8.1 [facility] H[id number] 20:40:00 Test Item Value Reference Range Interpretation Comments Segs (test code = Segs) 58.3 45.0-75.0 [facility] H[id number] 20:40:00 Test Item Value Reference Range Interpretation Comments Lymphocytes (test code = Lymphocytes) 32.6 20.0-40.0 [facility] H[id number] 20:40:00 Test Item Value Reference Range Interpretation Comments Eosinophils (test code = 1.7 See_Comment [A utomated message] The Eosinophils) system which ge nerated this result tra nsmitted reference range : <=4.0. The reference r morales was not used to int erpret this result as normal/abnormal . [facility] Hos[id number] 20:40:00 Test Item Value Reference Range Interpretation Comments Monocytes (test code = Monocytes) 7.3 2.0-12.0 [facility] HospitalAabfiecWDNHTNUUPI2228-10-17 20:40:00 Test Item Value Reference Range Interpretation Comments MPV (test code = MPV) 8.6 7.4-10.4 [facility] H[id number] 20:40:00 Test Item Value Reference Range Interpretation Comments WBC (test code = WBC) 8.0 3.7-10.4 [facility] HospitalGixmhvlGUZKINPWGL0060-12-40 20:40:00 Test Item Value Reference Range Interpretation Comments MCH (test code = MCH) 29.1 pg 27.0-31.0 [facility] H[id number] 20:40:00 Test Item Value Reference Range Interpretation Comments RDW (test code = RDW) 18.5 11.5-14.5 [facility] HospitalEmbssqtUXPMCZMSPE1679-17-17 20:40:00 Test Item Value Reference Range Interpretation Comments MCHC (test code = MCHC) 32.8 32.0-36.0 [facility] HospitalPmzdlgxYDDUUFRQOX0416-35-35 20:40:00 Test Item Value Reference Range Interpretation Comments Platelet (test code = Platelet) 231 133-450 [facility] H[id number] 20:40:00 Test Item Value Reference Range Interpretation Comments MCV (test code = MCV) 88.9 80.0-98.0 [facility] HospitalZehlwaxCXTKNNIOFG0388-08-37 20:40:00 Test Item Value Reference Range Interpretation Comments RBC (test code = RBC) 4.14 4.20-5.40 [facility] HospitalJpiugsiNWWVYUKPXQ1208-58-83 20:40:00 Test Item Value Reference Range Interpretation Comments Hct (test code = Hct) 36.8 36.0-48.0 [facility] HospitalMwcukujJNTYBGUZGI5376-14-20 20:40:00 Test Item Value Reference Range Interpretation Comments Hgb (test code = Hgb) 12.1 12.0-16.0 [facility] H[id number] 20:40:00 Test Item Value Reference Range Interpretation Comments PTT (test code = PTT) 31.3 s 22.9-35.8 [facility] Notes Date/Time Note Provider Source 2016-10-04 Radiographs of the LEFT foot [facility] 15:00:32-00:00 Clinical Indication: - snake bite, r/o retained fang. Comparison: None. Technique: 3 views foot FINDINGS: There is no acute fracture o r dislocation. Joint spaces appear preserved. Mild diffuse soft tissue swelling. There is a plantar calcaneal spur as well as an Achilles enthesopathy changes. There is no evidence of radiopaque foreign body. If there is persistent clini chanell concern, CT or MRI can be obtained for further evaluation. IMPRESSION: No evidence of retained radiopaque forei gn body. Diffuse soft tissue swelling. SL: [id number] 2015-08-26 Study: Wrist complete DX 08/26/2015 10:48 PM CDT [facility] 22:54:00-00:00 Ordering Physician: Melquiades Moore MD Clinical Indication: 60-year-old with right hand and wrist pain. Comparison: None FINDINGS: Images of the right wrist de monstrate no evidence for fracture, dislocation or destructive lesion. Minimal degenerative changes present at the 1st carpometacarpal articulation. The scapholunate interspace is normal. No soft tissue abnormalities are appreciated. IMPRESSION: Minimal degenerative joint d isease at the 1st carpometacarpal articulation. Otherwise normal images of the right wrist. SL: [id number] 2015-08-26 Study: Hand 2 views DX 08/26/2015 10:48 PM CDT [facility] 22:54:00-00:00 Ordering Physician: Melquiades Moore MD Clinical Indication: 60-year-old with right hand and wrist pain. Comparison: None FINDINGS: Images of the right hand dem onstrate no evidence for fracture, dislocation or destructive lesion. Minimal degenerative changes present at the IP joint of the thumb and at the 1st carpometacarpal articulation. There are mild degenerative changes involving the DIP joints of the 2nd through 4th fingers . Qvotfppr-nm-cicexi degener ative changes present at the DIP joint of the right 5th finger, with adjacent soft tissue swelling. The scapholunate interspace is normal. The carpu s is grossly unremarkable. No soft tissue abnormalities are appreciated. IMPRESSION: Degenerative changes are pre sent as described, most pronounced at the DIP joint of the right 5th finger. No fracture or dislocation is seen.. SL: [id number] 2014-12-13 - DIGITAL MAMMO SCREEN LORIE VENEGAS [facility] 16:15:00-00:00 BILATERAL DIGITAL SCREENING MAMMOGRAM 3D/2D WITH CAD: 12/13/2014 CLINICAL: Screening Hortencia German -[birth year]. 2D digital mammographic imag es and 3D digital tomosynthesis images were obtained in the CC and MLO projections. Current study was evaluated with a Shoe Stamper d Detection (CAD) system. Comparison is made to exam d ated: 01/27/2011 mammogram - [facility]. There are scattered fibroglandular densities in both breasts. There are benign vascular ca lcifications in both breasts. There also is a biopsy clip in the right breast. No significant masses, calci fications, or other findings are seen in either breast. There has been no significant interval change. IMPRESSION: BENIGN There is no mammographic kevin dence of malignancy. A 1 year screening mammogram is recommended. Haritha Marie M.D. to/penrad:12/13/2014 17:04:57 Data Collection Interviewer: Dennis Jean [facility] This exam was dictated and i nterpreted by [id number] for [facility]. letter sent: Normal exam Mammogram BI-RADS: 2 Benign 2014-09-12 Name: HORTENCIA GERMAN [facility] 17:24:27-00:00 : 1955 SEX: F Ordering Physician: Gaurav Montes De Oca Spine Thoracic wo contrast MRI : Sep 12, 2014 06 :33:00 PM. CLINICAL INDICATION: 724.1 Pain in Thoracic Spin e Comparison Examination: None TECHNIQUE: Multiplanar noncontrast T1, T2, STIR noncontrast weighted MR imaging of the thoracic spine is performed on a Bruce 3 Nissa magnet. Contrast: None FINDINGS: The thoracic vertebrae demon strate normal marrow signal for the patient's age. There is also normal cord signal without evidence for focal lesions or hydromyelia. The cord is normal in size and shape. There are no significant dis c bulges or protrusions and no spinal or neuroforaminal stenosis. IMPRESSION: Unremarkable noncontrast MRI of the thoracic spi ne. SL: 2014-09-12 Name: HORTENCIA GERMAN SHILOH CHIDI [facility] 17:24:27-00:00 : 1955 SEX: F Ordering Physician: Gaurav Montes De Oca Spine lumbar wo contrast MRI : Sep 12, 2014 06:3 3:00 PM. CLINICAL INDICATION: 722.80 Postlaminectomy Synd david of Unspecified Region Comparison Examination: None TECHNIQUE: Multiplanar noncontrast T1, T2 and STIR weighted MR images of the lumbar spine are performed on the 3 Nissa magnet. FINDINGS: Five nonrib-bearing lumbar type vertebrae are as sumed. The bone marrow is within no rmal limits for the patient's age. The conus terminates at L1-L2. There is no abnormal signal within the distal cord or cauda equina. There is normal alignment. Ther e are no vertebral body frac tures. There are no pars interarticularis defects noted. The anterior and posterior paraspinal soft tissues are unremarkable. T12-L1: There is no signific ant disc bulge, protrusion, or degenerative change and no spinal or foraminal stenosis. L1-2: There is no significan t disc bulge, protrusion, or degenerative change and no spinal or foraminal stenosis. L2-3: There is a left forami nal annular tear and small protrusion without associated spinal or foraminal stenosis. L3-4: There is 4 mm of anter olisthesis of L3 upon L4. The patient has undergone posterior bilateral pedicular fusion and decompressive laminectomy at this level. There is no significant spinal or forami nal stenosis. The disc graft is appropriately po sitioned. L4-5: A small diffuse disc b ulge indents slightly upon the thecal sac without resulting in significant spinal or foraminal stenosis. L5-S1: The disc graft is kierra ropriately positioned and there is no spinal or foraminal stenosis. IMPRESSION: Expected postoperative appea antolin of the lumbar spine without spinal or foraminal stenosis. SL: 23 2014-08-07 Name: HORTENCIA GERMAN OWENYina [facility] [place] 08:33:18-00:00 : 1955 SEX: F Ordering Physician: Rosey Foster Spine lumbar AP lateral : Aug 07, 2014 08:33:00 AM. CLINICAL INDICATION: 724.02 Comparison Examination: 12/09/2011 FINDINGS: AP and lateral views demonst rate five non rib bearing lumbar vertebral segments. There is mild levoscoliosis with apex at L3. L3-L4 posterior lumbar fusion hardware is in place with 5 mm anterolisthesis and interposition graft in place. L4-L5 is unremarkable. Remote L5-S1 interbody changes are seen with interposition graft and suggestion of mature interbody ankylosis. No hardware is seen at L5-S1. The re are laminectomy changes at L3, L4 and possibl y L5. L2-L3, there is 4 mm retroli sthesis. No acute fracture is seen. Moderate loss of disc height is noted at all levels. Rest of the visualized bones are unremarkable. If there is further concern, MRI or CT of the lumbar spine may be performed for complete assessment. IMPRESSION: 1. L3-L4 PLIF with intact hardware and 5 mm ante rolisthesis. 2. Remote L5-S1 interbody fusion. No hardware. 3. L3-L4 laminectomy changes. 4. L2-L3 4 mm retrolisthesis. SL: 58 2014-01-23 Name: HORTENCIA GERMAN [facility] 11:53:33-00:00 : 1955 SEX: F Ordering Physician: Rosey Foster Spine lumbar myelogram CT: Jan 23, 2014 11:53:00 AM. CLINICAL INDICATION: 724.2 lower back pain. Comparison Examination: CT 12/28/2013 TECHNIQUE: Sequential trans-axial image s were obtained with a multi-detector helical CT after the myelogram. Coronal and sagittal reconstructions were obtained and viewed on the workstation. Dose: The total exam DLP is 410 mGy-cm. FINDINGS: There is mild leftward curvature of lumbar align ment. Five lumbar type vertebral b odies are seen, and the last well formed disc space is assumed to be L5-S1. Grade 1 spondylolisthesis of L3 on L4 is stable. Vertebral body heights are maintained. An L5-S1 interposition graft is partially incorporated, and unchanged compared to the prior exam. Chronic bilateral L3 pars defects remain. Posterior L5-S1 spinal fusion hardware has been removed. The conus medullaris terminates at L1-L2. Mild bilateral sacroiliac joint osteoarthritis i s seen. Cord attenuation and contour is within normal li mits. T12-L1: Small disc osteophyt e complex and mild facet arthropathy. No central spinal canal stenosis. No neural foraminal narrowing. L1-L2: Small disc osteophyte complex and mild facet arthropathy. No central spinal canal stenosis. No neural foraminal narrowing. L2-L3: Small disc osteophyte complex. Status post right hemilaminotomy. No central spinal canal stenosis. Mild bilateral neural foraminal narrowing. L3-L4: Moderate disc osteoph yte complex and facet arthropathy. Status post laminectomy. Moderate chronic bilateral osseous neural foraminal narrowing. L4-L5: Small to moderate dis c osteophyte complex. Status post laminectomy. Left greater than right facet arthropathy. Moderate left and mild right facet arthropathy. No central spinal canal stenosis. Se rashaun left and moderate right neural foraminal na rrowing. L5-S1: Small posterior disc osteophyte complex. No central spinal canal stenosis. Moderate to severe right and mild left neural foraminal narrowing. IMPRESSION: 1. Mild leftward curvature of lumbar alignment. 2. Stable chronic bilateral L3 spondylolysis, and grade 1 spondylolisthesis on L4. 3. Stable L5-S1 partially incorporated interposi tion graft.. 4. Posterior L5-S1 spinal fusion hardware has be en removed. 5. Mild bilateral sacroiliac joint osteoarthriti s. 6. L2-L3: Small disc osteoph yte complex. Status post right hemilaminotomy. Mild bilateral neural foraminal narrowing. 7. L3-L4: Moderate disc oste ophyte complex and facet arthropathy. Status post laminectomy. Moderate bilateral osseous neural foraminal narrowing. 8. L4-L5: Small to moderate disc osteophyte complex. Status post laminectomy. Left greater than right facet arthropathy. Moderate left and mild right facet arthropathy. Severe left and moderate right neural foraminal narrowing. 9. L5-S1: Small posterior di sc osteophyte complex. Moderate to severe right and mild left neural foraminal narrowing. 2014-01-23 Name: HORTENCIA GERMAN [facility] 11:34:32-00:00 : 1955 SEX: F Ordering Physician: Rosey Foster Spine lumbar myelogram : Jan 23, 2014 11:34:00 A M. CLINICAL INDICATION: 724.2 58-year-old female hi story of back pain. Comparison Examination: None PROCEDURE: The risks, benefits and alte rnatives of the procedure were discussed in detail with the patient. Emphasis was placed on risks of bleeding, infection, nerve injury and post myelogram headache. A signed i nformed consent was obtained . The lower back was prepped and draped with sterile technique and the skin was infiltrated with 1% Lidocaine local anesthesia. Using real time fluoroscopic guidance, a 22 gu age needle was placed into t he thecal sac at the L3-L4 level. Approximately 10 cc of Omnipaque 180 contrast material was instilled into the thecal sac. The needle was then removed and the site was dress ed with sterile technique. S pot fluoroscopic images were obtained. There were no complications during the procedure. Fluoroscopy time: 19 seconds. FINDINGS: Spot fluoroscopic images of the lumbar spine were subsequently obtained which showed contrast material in the thecal sac. Mild rightward curvature of lumbar alignment is seen. Five lumbar type vertebral bodies are noted. No contrast extravasation is present. Grade 1 spondylolisthesis of L3 on L4 is noted. Mild multilevel degenerative disc disease. No pa rs defect is noted. There are no ventral epidura l defects or nerve root truncation defects identified radiographically. Please refer to the CT lumbar spine post myelogr am for complete assessment. IMPRESSION: Successful fluoroscopically guided lumbar myelog sanket. SL: 24 2013-12-28 NAME: HORTENCIA GERMAN [facility] 13:14:32-00:00 : 1955 SEX: F Ordering Physician: Rosey Foster Spine lumbar wo contrast CT : Dec 28, 2013 01:14 :00 PM. CLINICAL INDICATION: 724.4. Comparison Examination: None. TECHNIQUE: Sequential trans- axial images were obtained with a multi-detector helical CT. Coronal and sagittal reconstructions were obtained. The total exam DLP is 406.53 mGy-cm. FINDINGS: ALIGNMENT AND GENERAL ASSESS MENT: There are 5 nonrib-bearing lumbar vertebral segments. Mild leftward scoliosis of the lumbar spine is seen with apex at the L3 level. There is 6 mm lateral leftward list hesis of L3 on L4. There is 6 mm anterolisthesis of L3 on L4. There are no fractures of th e lumbar spine. There are no pars interarticularis defects noted. The facet joint alignments are unremarkable. Postsurgical changes are seen status post prior L5-S1 fusion wi th transpedicular screws pos terior rods and disc space graft material. There is no CT evidence of hardware failure or loosening. Postlaminectomy changes are seen from the L3-L5 levels. Postsurgical guerrero ges of the lower posterior paraspinal soft tissu es are seen. DISK SPACES AND SOFT TISSUES : MRI has higher sensitivity and specificity for disc and soft tissue disease. T12-L1: There is a tiny cent ral disc osteophyte complex. The facet joints appear unremarkable. There is no central or foraminal stenosis L1-L2: The disc is unremarka ble. Mild bilateral degenerative facet disease changes are seen. The lateral recesses appear unremarkable. There is no central or foraminal stenosis. L2-L3: There is mild diffuse disc bulge with mild bilateral degenerative facet disease changes. There is minimal mass effect on the lateral recesses. There is no central or foraminal stenosis. L3-L4: There is 6 mm anterio r and left lateral listhesis of L3 on L4. There is moderate diffuse disc bulge or disc uncovering. There are associated moderate bilateral degenerative facet disease changes. Right hemilaminectomy delgado es are seen, with some possible scar tissue in the right lateral epidural space. There appears to be moderate to severe central spinal stenosis on CT. There is mild left and moderate to severe right foraminal stenosis. L4-L5: There is mild to mode rate diffuse disc bulge. Degenerative facet disease changes are seen. Postsurgical changes related to laminectomy is seen. Some hardware artifact is also seen. There is no central or foraminal stenosis. L5-S1: Postsurgical changes are seen with associated artifact. There is no central spinal stenosis. There is mild right foraminal stenosis. If there is further concern, CT myelogram or MRI of the lumbar spine may be performed for complete assessment. Opinion: 1. Postsurgical changes stat us post prior L5-S1 fusion with transpedicular screws, posterior rods and disc space graft material. Postlaminectomy changes from the L2-L5 levels. No central spinal stenosis at the L5-S1 level. Mild right foraminal stenos is. 2. 6 mm anterior and left la teral listhesis of L3 on L4. Moderate diffuse disc bulge or disc uncovering. Associated moderate bilateral degenerative facet disease changes. Right hemilaminectomy changes, with some possible scar tiss ue in the right lateral epidural space. There appears to be moderate to severe central spinal stenosis on CT. Mild left and moderate to severe right foraminal stenosis. SL: 24 2013-09-22 Name: HORTENCIA GERMAN [facility] 13:40:56-00:00 : 1955 SEX: F Ordering Physician: Sami Moore Brain w/wo contrast MRI : Sep 22, 2013 01:41:00 PM. CLINICAL INDICATION: unspecified facial nerve di sorder Comparison Examination: None Clinical History: Facial droop TECHNIQUE: MRI of the brain/internal au ditory canal region is performed with axial, sagittal and coronal qti-ful-lvuz gadolinium contrast-enhanced T1-weighted imaging with small idlmh-ne-tkul. T2-weighted imaging was also performed on the 3 Nissa magnet. Contrast: 16 of intravenous gadolinium FINDINGS: The brain parenchyma is norm al with normal sanchez-white interfaces, sulci and gyri. There are a few scattered foci of white matter T2 hyperintensity. Suspect small vessel ischemia. There is no mass-effect or midline shift. There are no intra or extra-axial fluid collections, intraventricular or intraparenchymal hemorrhages. There are no diffusion weighted abnormalities to suggest acute/subacute stroke. There are no abnormal areas of postgadolinium co ntrast enhancement. The cerebellopontine angle r egions are unremarkable. Cranial nerves VII and VIII are normal without abnormal contour or enhancement. The mastoid air cells are clear. The petrous apex regions are unremar kable. There is normal appea antolin of the fluid in the labyrinthine semicircular canals. There are no cerebellopontine angle region masses. The cavernous sinus and Meckel's cave region are masoud l. The optic chiasm and sell ar regions are unremarkable. The skull base, craniocervical junction and brainstem regions are normal. The corpus callosum is normal. The intracranial vascular flow-voids are unremarkable. The venous sinuses and jugular ve ins are unremarkable. The visualized orbits and paranasal sinuses are unremarkable. IMPRESSION: Scattered punctate foci of w carrie matter T2 hyperintensity. These are nonspecific but probably represent small vessel ischemia. Otherwise, unremarkable MRI of the brain with internal auditory canal protocol. SL:24 2013-09-06 Name: HORTENCIA GERMAN [place] 18:01:43-00:00 : 1955 SEX: F Ordering Physician: Gladis Daley Spine lumbar w/wo contrast MRI : Sep 06, 2013 06 :18:00 PM. CLINICAL INDICATION: 338.18 Other Acute Postoperative Pain. 58-year-old female with postoperative pain. Comparison Examination: Lumbar spine plain film December 09, 2011 TECHNIQUE: Multiplanar noncontrast T1, T2 and STIR and post gadolinium MR images of the lumbar spine are performed on the 3 Nissa magnet. Contrast: 10 cc of gadolinium were utilized. FINDINGS: Five lumbar type vertebral b odies are seen, and the last well formed disc space is assumed to be L5-S1. The T12 ribs are hypoplastic. There is mild leftward curvature of lumbar alignment. There is masoud l lumbar lordosis. Laminecto mies are at L4 and L5, and persistent interposition graft at L5-S1. Transpediculate screws and posterior spinal fusion rods are also seen at L5-S1. The right L5 screw tip ter minates near the vertebral e ndplate. The right S1 screw tip terminates just within the prevertebral soft tissues. Cord signal and contour is within normal limits. Residual edema and 1 cm dark signal abnormality is seen in the soft tissues dorsal and to the right of the L4 laminectomy. There is minimal residual edema and enhancement in the laminectomy bed soft tis sues. This is particularly e xuberant dorsal to the right side of the L4 laminectomy as well, extending into the L2 and L5 right dorsal soft tissues, L3- L4 and L4-L5 neural foramina. Residual fluid is se en in the soft tissues dorsa l to the spinous process, and in the right L3-L4 epidural space. T12-L1: No central spinal canal stenosis or neur al foraminal narrowing. L1-2: No central spinal canal stenosis or neural foraminal narrowing. L2-3: Small disc bulge. No c entral spinal canal stenosis. Mild left neural foraminal narrowing. L3-4: Moderate disc bulge, e ccentric at the foramina. No central spinal canal stenosis. Moderate right greater than left neural foraminal narrowing. Residual fluid in the soft tissues dorsal to the spinous process, and in the right epidural space. L4-5: Small disc bulge. No c entral spinal canal stenosis. Mild left greater than right neural foraminal narrowing. L5-S1: Small posterior disc bulge. Mild narrowing of bilateral lateral recesses. Mild left and mild to moderate right neural foraminal narrowing. IMPRESSION: 1. Mild leftward curvature of lumbar alignment. 2. Laminectomies at L4 and L 5, and interposition graft at L5-S1. Transpediculate screws and posterior spinal fusion rods are at L5-S1. 3. Residual edema and enhanc ement, and 1 cm dark signal abnormality, in the soft tissues dorsal to the right side of the L4 laminectomy. This extends into the right dorsal L2 and L5 soft tissues, L3-L4 and L4-L5 neural foramina. R esidual fluid also in the right L3-L4 epidural space. Differential includes postsurgical change, and granulation tissues, with 1 cm dark focus of postsurgical material or blo od products. Superimposed in fection is not entirely excluded, and please correlate with the clinical exam. 4. L3-4: Moderate disc bulge , eccentric at the foramina. Moderate right greater than left neural foraminal narrowing. Residual fluid in the soft tissues dorsal to the spinous process, and in the right epidural space. 5. L4-5: Small disc bulge. M ild left greater than right neural foraminal narrowing. 6. L5-S1: Small posterior di sc bulge. Mild narrowing of bilateral lateral recesses. Mild left and mild to moderate right neural foraminal narrowing. SL: 24
[2022-10-24] MEDS ORDERED: CYCLOBENZAPRINE 10 MG TAB ONE (04:20)
[2022-10-24] MEDS ORDERED: HYDROCODONE/APAP 10/325 TAB ONE (04:20)
[2022-10-24 04:44] LABS: Urine Bacteria 20-50 /HPF (<20); Urine Bilirubin NEGATIVE (Negative); Urine Blood Negative (Negative); Urine Clarity Extremely Turbid (Clear); Urine Color Light-Yellow (Yellow); Urine Glucose NEGATIVE (Negative); Urine Mucus Slight /HPF (None Seen); Urine Protein NEGATIVE (Negative); Urine RBC 21-50 /HPF (None Seen); Urine Urobilinogen Normal (Normal); Urine WBC Clump Moderate /HPF (None Seen); Urine pH 6.5 (5.0-7.0)
[2022-10-24] MEDS ORDERED: HYDROMORPHONE HCL 2 MG/ML inj ONE (05:05)
[2022-10-24] MEDS ORDERED: LIDOCAINE 1% MPF 2 ML AMPULE ONE (05:07)
[2022-10-24] MEDS ORDERED: CEFTRIAXONE 1000 MG/VIAL ONE (05:07)
--- NOTE | 2022-10-24 05:43 | ER ---
Nurse's Notes [facility] Name: Eva Estrella Age: 67 yrs Sex: Female : 1955 Arrival Date: 10/24/2022 Time: 03:30 Bed 5 Private MD: Diagnosis: Acute exacerbation of chronic low back pain;Urinary tract infection Presentation: 10/24 03:33 Chief complaint: Patient states: lower back pain that radiates down bilateral pf1 legs,onset October 07, S/P back fusion of L4-L5 [facility]. Patient stated had an xray done here either on or Wednesday and is supposed to follow up with Dr. Carter on this coming Wednesday. Patient stated last took Dilaudid 4mg at 1999 last night. 03:33 Method Of Arrival: Wheelchair pf1 03:33 Coronavirus screen: Vaccine status: Patient reports receiving the 2nd dose of the covid pf1 vaccine. [employer] Client denies travel out of the [place] in the last 14 days. At this time, the client does not indicate any symptoms associated with coronavirus-19. Ebola Screen: Patient negative for fever greater than or equal to 101.5 degrees Fahrenheit, and additional compatible Ebola Virus Disease symptoms. Initial Sepsis Screen: Does the patient meet any 2 criteria? No. Patient's initial sepsis screen is negative. Does the patient have a suspected source of infection? No. Patient's initial sepsis screen is negative. Risk Assessment: Do you want to hurt yourself or someone else? Patient reports no desire to harm self or others. 03:33 Acuity: SAMMY 3 pf1 04:12 Onset of symptoms was October 07, 2022. as6 Historical: - Allergies: 03:56 GABAPENTIN; pf1 03:56 Lyrica; pf1 03:56 Prednisone; pf1 03:56 tramadol; pf1 - PMHx: 03:56 chronic back pain; Pain Management; Headache; pf1 - PSHx: 03:56 Back surgery x 4; pf1 - Immunization history:: Adult Immunizations up to date, Client reports receiving the 2nd dose of the Covid vaccine, Last tetanus immunization: < 5 years ago Flu vaccine is up to date. - Social history:: Smoking status: Patient denies any tobacco usage or history of. Patient uses alcohol, occasionally. Patient/guardian denies using street drugs. Screenin:12 [facility] ED Fall Risk Assessment (Adult) Score/Fall Risk Level 0 - 2 = Low Risk. Abuse as6 screen: Denies threats or abuse. Denies injuries from another. Nutritional screening: No deficits noted. Tuberculosis screening: No symptoms or risk factors identified. Assessment: 04:11 General: Appears uncomfortable, slender, Behavior is calm, cooperative. Pain: Complains as6 of pain in back Quality of pain is described as aching, sharp. Neuro: Level of Consciousness is awake, alert, obeys commands, Oriented to person, place, time, situation. Cardiovascular: Capillary refill < 3 seconds Patient's skin is warm and dry. Respiratory: Respiratory effort is even, unlabored, Respiratory pattern is regular, symmetrical. Derm: Skin is intact, is healthy with good turgor. Vital Signs: 03:33 BP 134 / 82; Pulse 87; Resp 18; Temp 98.2; Pulse Ox 100% on R/A; Weight 54.88 kg; pf1 Height 5 ft. 5 in. ; Pain 10/10; 05:38 BP 119 / 83; Pulse 90; Resp 16 S; Pulse Ox 96% on R/A; as6 03:33 Body Mass Index 20.14 (54.88 kg, 165.1 cm) pf1 03:33 Pain Scale: Adult pf1 ED Course: 03:31 Patient arrived in ED. jj6 03:47 Lala Lopez MD is Attending Physician. sd2 03:56 Triage completed. pf1 04:02 Jovany العلي, KEI is Primary Nurse. as6 04:11 Arm band placed on. as6 04:12 Bed in low position. Call light in reach. Warm blanket given. as6 04:33 Urinalysis w/ reflexes Sent. vc1 05:45 Provided Education on: discharge teaching . as6 05:45 No provider procedures requiring assistance completed. Patient did not have IV access as6 during this emergency room visit. Administered Medications: 04:11 Drug: [place] PO 10 mg-325 mg 1 tabs Route: PO; as6 04:57 Follow up: Response: No adverse reaction; Marked relief of symptoms; Pain is decreased; pf1 RASS: Alert and Calm (0) 04:11 Drug: Cyclobenzaprine PO 10 mg Route: PO; as6 04:57 Follow up: Response: No adverse reaction; Marked relief of symptoms; Pain is decreased; pf1 RASS: Alert and Calm (0) 05:00 Drug: HYDROmorphone IM 2 mg Route: IM; Site: right gluteus; pf1 05:46 Follow up: Response: No adverse reaction as6 05:10 Drug: Rocephin (cefTRIAXone) IM 1 grams Route: IM; Site: left gluteus; pf1 05:46 Follow up: Response: No adverse reaction as6 Medication: 04:12 VIS not applicable for this client. as6 Outcome: 05:43 Discharge ordered by . sd2 05:45 Condition: stable as6 05:45 Discharged to home via wheelchair, with family. as6 05:45 Discharge instructions given to patient, Instructed on discharge instructions, follow up and referral plans. medication usage, Demonstrated understanding of instructions, follow-up care, medications, Prescriptions given X 2. 05:49 Patient left the ED. as6 Signatures: Hyacinth [email or web address] Jovany العلي RN RN as6 Eunice Lanier RN RN vc1 Lala Lopez MD MD sd2 Sarai Soliz RN RN pf1
--- NOTE | 2022-10-24 05:43 | EDPHYS ---
Physician Documentation [facility] Name: Eva Estrella Age: 67 yrs Sex: Female : 1955 Arrival Date: 10/24/2022 Time: 03:30 Bed 5 Private MD: ED Physician Lala Lopez HPI: 10/24 04:05 This 67 yrs old Female presents to ER via Wheelchair with complaints of Post Surgical sd2 Pain, Back Pain. 04:05 67 yo F presents with CC of post operative low back pain radiating down both her legs. sd2 Pt had anterior approach to L4-5 fusion revision performed on 10/[address] Posada in [place]. Reports has scheduled follow up appointment this upcoming Wednesday but has been in worse pain ever since the surgery despite pain management having her on Dilaudid 4 mg every 6 hours. She last took a dose of pain medication at 8PM last night. She is also on Baclofen. Denies any significant falls or traumatic injuries. Had an X-ray performed 2 days ago prior to her upcoming follow up appointment that did not show any significant abnormalities. Reports leakage of urine and unable to control her bladder but that this was happening prior to the surgery and worsened after the surgery but Dr. Posada was aware of this while she was in the hospital after her surgery.. Historical: - Allergies: 03:56 GABAPENTIN; pf1 03:56 Lyrica; pf1 03:56 Prednisone; pf1 03:56 tramadol; pf1 - PMHx: 03:56 chronic back pain; Pain Management; Headache; pf1 - PSHx: 03:56 Back surgery x 4; pf1 - Immunization history:: Adult Immunizations up to date, Client reports receiving the 2nd dose of the Covid vaccine, Last tetanus immunization: < 5 years ago Flu vaccine is up to date. - Social history:: Smoking status: Patient denies any tobacco usage or history of. Patient uses alcohol, occasionally. Patient/guardian denies using street drugs. ROS: 04:05 Constitutional: Negative for fever, chills, and weight loss, Eyes: Negative for injury, sd2 pain, redness, and discharge, Cardiovascular: Negative for chest pain, palpitations, and edema, Respiratory: Negative for shortness of breath, cough, wheezing. Abdomen/GI: Negative for abdominal pain, nausea, vomiting, diarrhea. Back: Negative for injury and positive for pain, MS/Extremity: Negative for injury and deformity, Skin: Negative for injury, rash, and discoloration, Neuro: Negative for headache, numbness and tingling. Exam: 04:05 Constitutional: This is a well developed, well nourished patient who is awake, alert, sd2 and in mild distress 2/2 pain. Head/Face: Normocephalic, atraumatic. Eyes: EOMI, normal conjunctiva bilaterally Abdomen/GI: Soft, non-tender, with normal bowel sounds. No guarding or rebound. No evidence of tenderness throughout. Incision well healing, c/d/i Back: No spinal tenderness. No costovertebral tenderness. Full range of motion.No stepoffs or deformities. Well healed prior surgical scars to the spine. Bilateral lumbar paraspinal tenderness present. 04:05 Skin: Warm, dry with normal turgor. Normal color with no rashes, no lesions, and no sd2 evidence of cellulitis. MS/ Extremity: Pulses equal, no cyanosis. Neurovascular intact. Full, normal range of motion. Psych: Awake, alert, with orientation to person, place and time. Behavior, mood, and affect are within normal limits. Vital Signs: 03:33 BP 134 / 82; Pulse 87; Resp 18; Temp 98.2; Pulse Ox 100% on R/A; Weight 54.88 kg; pf1 Height 5 ft. 5 in. ; Pain 10/10; 05:38 BP 119 / 83; Pulse 90; Resp 16 S; Pulse Ox 96% on R/A; as6 03:33 Body Mass Index 20.14 (54.88 kg, 165.1 cm) pf1 03:33 Pain Scale: Adult pf1 MDM: 03:47 Patient medically screened. sd2 04:05 Differential diagnosis: hardware malfunction, postoperative pain, spinal stenosis, sd2 doubt cauda equina, nerve impingement among others. Data reviewed: vital signs, nurses notes, diagnostic data from outside facility, old medical records, Recent X-ray report with no significant abnormality on 10/22. I considered the following discharge prescriptions or medication management in the emergency department Medications were administered in the Emergency Department. See MAY. 05:40 Historians other than the Patient: Spouse/Significant Other: Provides further history sd2 at bedside. Care significantly affected by the following chronic conditions: Chronic Back Pain. Counseling: I had a detailed discussion with the patient and/or guardian regarding the historical points, exam findings, and any diagnostic results supporting the discharge/admit diagnosis, radiology results, the need for outpatient follow up, to return to the emergency department if symptoms worsen or persist or if there are any questions or concerns that arise at home. ED course: Pt feeling much improved after treatment with [place] and Dilaudid. Due to pain management contract, will not provide prescriptions. Pt to follow up with Pain Management regarding adjustments to her current pain control regimen. Also noted to have UTI. Rocephin IM given. Will continue on oral abx outpatient. Verbalizes understanding of discharge plan and strict return precautions at this time. . 10/24 04:25 Order name: Urinalysis w/ reflexes; Complete Time: 04:54 sd2 10/24 04:57 Order name: Urine Culture EDMS Administered Medications: 04:11 Drug: [place] PO 10 mg-325 mg 1 tabs Route: PO; as6 04:57 Follow up: Response: No adverse reaction; Marked relief of symptoms; Pain is decreased; pf1 RASS: Alert and Calm (0) 04:11 Drug: Cyclobenzaprine PO 10 mg Route: PO; as6 04:57 Follow up: Response: No adverse reaction; Marked relief of symptoms; Pain is decreased; pf1 RASS: Alert and Calm (0) 05:00 Drug: HYDROmorphone IM 2 mg Route: IM; Site: right gluteus; pf1 05:46 Follow up: Response: No adverse reaction as6 05:10 Drug: Rocephin (cefTRIAXone) IM 1 grams Route: IM; Site: left gluteus; pf1 05:46 Follow up: Response: No adverse reaction as6 Disposition Summary: 10/24/22 05:43 Discharge Ordered Location: Home sd2 Problem: an acute exacerbation sd2 Symptoms: have improved sd2 Condition: Stable sd2 Diagnosis - Acute exacerbation of chronic low back pain sd2 - Urinary tract infection sd2 Followup: sd2 - With: Private Physician - When: 2 - 3 days - Reason: Recheck today's complaints, Continuance of care, Re-evaluation by your physician Discharge Instructions: - Discharge Summary Sheet sd2 - Chronic Back Pain sd2 - Urinary Tract Infection, Adult sd2 - Managing Chronic Back Pain sd2 Forms: - Medication Reconciliation Form sd2 - Thank You Letter sd2 - Antibiotic Education sd2 - Prescription Opioid Use sd2 - Patient Portal Instructions sd2 - Leadership Thank You Letter sd2 Prescriptions: - cefdinir 300 mg Oral capsule - take 1 capsule by ORAL route 2 times per day for 10 days; 20 capsule; Refills: sd2 0, Product Selection Permitted - Cyclobenzaprine 10 mg Oral Tablet - take 1 tablet by ORAL route every 8 hours As needed; 30 tablet; Refills: 0, sd2 Product Selection Permitted Signatures: Dispatcher [employer] Jovany Matthews RN RN as6 Lala Lopez MD MD sd2 Sarai Soliz RN RN pf1 Corrections: (The following items were deleted from the chart) 04:08 04:05 67 yo F presents with CC of post operative low back pain radiating down both her sd2 legs. Pt had anterior approach to L4-5 fusion revision performed on 10/[address] Posada in [place]. Reports has scheduled follow up appointment this upcoming Wednesday but has been in worse pain ever since the surgery despite pain management having her on Dilaudid 4 mg every 6 hours. She last took a dose of pain medication at 8PM last night. She is also on Baclofen. Denies any significant falls or traumatic injuries. Had an X-ray performed 2 days ago prior to her upcoming follow up appointment that did not show any significant abnormalities. . sd2
[2022-10-24 05:55] VITALS: TEMP 98.2
[2022-10-24 05:56] VITALS: BP 119/83; O2SAT 96
== END 2022-10-24 05:49 | disposition home or self-care (01) ==
LOC: ER 03:30
DX: M54.50 Low back pain, unspecified (principal); G89.18 Other acute postprocedural pain; G89.29 Other chronic pain; N39.0 Urinary tract infection, site not specified
CPT/HCPCS: 87088; 81001; 87086; 87077; 87186; 96372; 99284; J1170; J0696

== ENCOUNTER 2023-12-23 10:06 | Emergency (ER) | payer OTHER ==
[2023-12-23 10:43] LABS: Specific Gravity 1.022 (1.005-1.030); Sqamous Epithelial <5 /HPF (None Seen); Transitional Epithelial <5 /HPF (None Seen); Urine Bacteria <20 /HPF (<20); Urine Bilirubin NEGATIVE (Negative); Urine Blood 2+ (Negative); Urine Clarity Extremely Turbid (Clear); Urine Color Yellow (Yellow); Urine Culture Reflex Order REFLEXED; Urine Glucose NEGATIVE (Negative); Urine Ketones NEGATIVE (Negative); Urine Microscopic Reflex YN ORDER UMIC; Urine Mucus Slight /HPF (None Seen); Urine Nitrite NEGATIVE (Negative); Urine Protein TRACE (Negative); Urine RBC >50 /HPF (None Seen); Urine Urobilinogen Normal (Normal); Urine WBC >50 /HPF (<5); Urine WBC Clump Few /HPF (None Seen); Urine Yeast (Budding) Few /HPF (None Seen); Urine pH 5.5 (5.0-7.0)
--- NOTE | 2023-12-23 11:24 | RAD REPORT ---
EXAMINATION: Stone Protocol CLINICAL INDICATION: Female, 68 years old. KIDNEY STONES TECHNIQUE: CT abdomen and pelvis was performed, without IV contrast, as per department protocol. Axia l, sagittal and coronal reconstructions were obtained. One or more of the following dose reduction techniques were used: Automated exposure control, adjustment of the mA and kV according to the patien t size, and iterative reconstruction. Unless otherwise specified, incidental findings do not require dedicated imaging follow-up. COMPARISON: No prior exam. FINDINGS: The lack of intravenous contrast limits the sensitivity of this exam for evaluation of solid visceral organs, vascular structures, and retroperitoneum. LOWER CHEST: The visualized lung bases are clear. LIVER: Normal in size and contour. No focal lesion. BILIARY SYSTEM: No suspicious abnormalities. SPLEEN: Normal size. No focal lesion. PANCREAS: No mass, ductal dilation, or john-pancreatic fluid. ADRENALS: Normal; no mass. KIDNEYS AND URETERS: Normal size and contour. No hydronephrosis. URINARY BLADDER: Suboptimally distended, limiting evaluation, without suspicious findings. GASTROINTESTINAL TRACT: No evidence of bowel obstruction, significant free fluid, free air or abscess . APPENDIX: Appendix not visualized, but no inflammatory changes in region of appendix. LYMPH NODES: No lymphadenopathy. MUSCULOSKELETAL: No acute or suspicious osseous abnormality. L2-S1 spinal fusion hardware, with seque lae of posterior decompression at multiple levels. ADDITIONAL FINDINGS: None. IMPRESSION: No acute or concerning abnormalities in the abdomen or pelvis, with evaluation limited by lack of IV contrast. Incidental findings as above.
[2023-12-23] MEDS ORDERED: CEFTRIAXONE 2000 MG/VIAL ONE (12:28)
[2023-12-23] MEDS ORDERED: NA CHLORIDE 0.9% 100 ML ONE (12:28)
[2023-12-23] MEDS ORDERED: NA CHLORIDE 0.9% 1,000 ML ONE (12:28)
[2023-12-23] MEDS ORDERED: KETOROLAC 30 MG/ML INJ ONE (12:28)
[2023-12-23 12:32] LABS: Absolute Basophils 0.1 K/uL (0-0.5); Absolute Eosinophils 0.1 K/uL (0-0.5); Absolute Lymphocytes (CBC) 1.5 K/uL (0.7-4.9); Absolute Monocytes 0.5 K/uL (0.1-1.3); Absolute Neutrophil 6.3 K/uL (1.8-8.0); Basophils % 0.6 % (0-1.3); Eosinophils % 0.8 % (0-4.4); Hemoglobin 13.3 g/dL (12.0-15.0); Lymphocytes % 17.4 % (15.3-44.8); MCH 33.1 pg (27.0-35.0); MCHC 33.4 g/dL (32.0-36.0); MCV 99.1 fL (80-100); MPV 7.8 fL (7.6-11.3); Monocytes % 5.7 % (3.3-12.3); Neutrophils % 75.5 % (41.7-73.7); Platelets 232 thou/uL (152-406); RBC Red Blood Cell Count 4.03 M/uL (3.86-4.86); Red Cell Distribution Width 13.2 % (12.1-15.2)
[2023-12-23 12:54] LABS: Albumin 3.9 g/dL (3.4-5.0); Anion Gap 7.5 mEq/L (5.0-15.0); Bilirubin Total 0.4 mg/dL (0.2-1.0); Globulin 3.8 g/dL (2.3-3.5); Potassium 3.5 mEq/L (3.5-5.1); Protein, Total 7.7 g/dL (6.4-8.2)
--- NOTE | 2023-12-23 14:30 | ER ---
Nurse's Notes [facility] Name: Eva Estrella Age: 68 yrs Sex: Female : 1955 Arrival Date: 12/23/2023 Time: 10:06 Bed 24 Private MD: Diagnosis: Cystitis, unspecified with hematuria Presentation: 12/22 10:16 Chief complaint: Patient states: Low back pain, burning w/ urination, frequency, N/V, ph fever, started a few days ago, has appointment at 4 pm today w/ PCP but is too uncomfortable to wait. Coronavirus screen: Vaccine status: Patient reports receiving the 2nd dose of the covid vaccine. Ebola Screen: No symptoms or risks identified at this time. Initial Sepsis Screen: Does the patient meet any 2 criteria? No. Patient's initial sepsis screen is negative. Does the patient have a suspected source of infection? No. Patient's initial sepsis screen is negative. Risk Assessment: Do you want to hurt yourself or someone else? Patient reports no desire to harm self or others. Onset of symptoms was December 23, 2023. 10:16 Method Of Arrival: Ambulatory ph 10:16 Acuity: SAMMY 2 ph Triage Assessment: 10:21 General: Appears in no apparent distress. uncomfortable, Behavior is calm, cooperative, ph Reports chills for fever for. Pain: Complains of pain in left low back and left mid back. Neuro: Level of Consciousness is awake, alert, obeys commands, Oriented to person, place, time, situation. Respiratory: Airway is patent Respiratory effort is even, unlabored. GI: Reports nausea, vomiting. : Reports burning with urination, pain in left in lower back urinary frequency. Historical: - Allergies: 10:18 GABAPENTIN; ph 10:18 Lyrica; ph 10:18 Prednisone; ph 10:18 tramadol; ph - PMHx: 10:18 chronic back pain; headache; Pain Management; ph - PSHx: 10:18 Back surgery x 4; ph - Immunization history:: Adult Immunizations up to date. - Infectious Disease History:: Denies. - Social history:: Smoking status: Patient denies any tobacco usage or history of. Screenin:10 [facility] ED Fall Risk Assessment (Adult) History of falling in the last 3 months, me1 including since admission No falls in past 3 months (0 pts) Confusion or Disorientation No (0 pts) Intoxicated or Sedated No (0 pts) Impaired Gait No (0 pts) Mobility Assist Device Used No (0 pt) Altered Elimination No (0 pt) Score/Fall Risk Level 0 - 2 = Low Risk Maintained a safe environment, Provided non-skid footwear, Hourly rounding (assess needs \T\ fall precautionary measures) done. Abuse screen: Denies threats or abuse. Nutritional screening: No deficits noted. Tuberculosis screening: No symptoms or risk factors identified. Assessment: 12:10 General: Appears uncomfortable, well groomed, well developed, well nourished, Behavior me1 is calm, cooperative, appropriate for age, Reports Low back pain, burning w/ urination, frequency, N/V, fever, started a few days ago. Pain: Complains of pain in back and left mid back and left low back Pain does not radiate. Pain currently is 10 out of 10 on a pain scale. Quality of pain is described as sharp, Pain began gradually, 2-3 days ago. Is continuous. Neuro: Level of Consciousness is awake, alert, obeys commands, Oriented to person, place, time, situation, Appropriate for age. Cardiovascular: Patient's skin is warm and dry. Cardiovascular: Patient's skin is warm and dry. Respiratory: Airway is patent Respiratory effort is even, unlabored, Respiratory pattern is regular, symmetrical. GI: Reports nausea, vomiting. : Reports burning with urination, urinary frequency. EENT: No signs and/or symptoms were reported regarding the EENT system. Derm: Skin is intact, is healthy with good turgor, Skin is pink, warm \T\ dry. Musculoskeletal: No signs and/or symptoms reported regarding the musculoskeletal system. Vital Signs: 10:16 BP 125 / 109; Pulse 110; Resp 20; Temp 98.7; Pulse Ox 100% on R/A; Weight 61.23 kg; ph Height 5 ft. 6 in. ; 13:00 BP 100 / 69; Pulse 106; Resp 17; Pulse Ox 100% on R/A; me1 14:00 BP 120 / 77; Pulse 73; Resp 16; Pulse Ox 100% ; me1 14:15 BP 125 / 81; Pulse 103; Resp 17; Temp 98.4; Pulse Ox 100% ; me1 10:16 Body Mass Index 21.79 (61.23 kg, 167.64 cm) ph ED Course: 10:12 Patient arrived in ED. ra3 10:17 Betty Montano MD is Attending Physician. gb1 10:18 Triage completed. ph 10:18 Arm band placed on Patient placed in waiting room, Patient notified of wait time. ph 10:27 Urine collected: clean catch specimen, cloudy. ph 10:45 Stone Protocol In Process Unspecified. EDMS 12:10 Patient has correct armband on for positive identification. Bed in low position. Call me1 light in reach. Side rails up X2. Provided Education on: POC. Verbalized understanding.. Client placed on continuous cardiac and pulse oximetry monitoring. NIBP monitoring applied. Pulse ox on. NIBP on. Warm blanket given. 12:10 No provider procedures requiring assistance completed. me1 12:11 Emma Tejada, RN is Primary Nurse. me1 12:24 CBC with Diff Sent. me1 12:24 CMP Sent. me1 12:24 Lipase Sent. me1 12:25 Initial lab(s) drawn, by ga, sent to lab. Inserted saline lock: 22 gauge in left me1 antecubital area, using aseptic technique. 14:38 IV discontinued, intact, bleeding controlled, No redness/swelling at site. Pressure ga1 dressing applied. Administered Medications: 12:36 Drug: Sodium Chloride 0.9% IVPB 1000 ml IVPB once Route: IVPB; Site: left antecubital; me1 14:00 Follow up: Response: No adverse reaction; IV Status: Completed infusion; IV Intake: me1 1000ml 12:37 Drug: Ketorolac IVP 15 mg IVP once Route: IVP; Site: left antecubital; me1 13:07 Follow up: Response: No adverse reaction; Pain is decreased me1 12:37 Drug: Rocephin - Rocephin (cefTRIAXone) IVPB 2 grams IVPB once over 30 mins; (mix in me1 100 mL NS) Route: IVPB; Infused Over: 30 mins; Site: left antecubital; 13:07 Follow up: Response: No adverse reaction; IV Status: Completed infusion; IV Intake: me1 100ml Medication: 12:10 VIS not applicable for this client. me1 Intake: 13:07 IV: 100ml; Total: 100ml. me1 14:00 IV: 1000ml; Total: 1100ml. me1 Outcome: 14:30 Discharge ordered by . gb1 14:38 Discharged to home ambulatory, with significant other, me1 14:38 Condition: stable 14:38 Discharge instructions given to patient, significant other, Instructed on discharge instructions, follow up and referral plans. medication usage, Demonstrated understanding of instructions, follow-up care, medications, Prescriptions given X 1, 14:38 Patient left the ED. me1 Addendum: 12/26/2023 12:38 Addendum: Culture Results: Positive urine culture. Phone call Attempt #1 Left message l l1 at [phone]. 13:26 Addendum: Culture Results: Prescription called-in to pharmacy of choice. Macrobid l l1 called into [facility] in [place]. Signatures: Dispatcher [employer] EDAlicia Lowery RN RN El Nick RN RN 1 Emma Tejada RN RN ga1 Betty Montano MD MD gb1 Jovanna Waddell ra3 Corrections: (The following items were deleted from the chart) 12/22 13:42 10:16 Chief complaint: Patient states: Low back pain, burning w/ urination, frequency, me1 N/V, fever, started a few days ago, has appointment at 4 pm today w/ PCP but is too uncomfortable to wait. ph
--- NOTE | 2023-12-23 14:30 | EDPHYS ---
Physician Documentation [facility] Name: Eva Estrella Age: 68 yrs Sex: Female : 1955 Arrival Date: 12/23/2023 Time: 10:06 Bed 24 Private MD: ED Physician Betty Mnotano HPI: 12/22 14:27 This 68 yrs old Female presents to ER via Ambulatory with complaints of Low gb1 Back Pain - blood in urine. 14:27 69-year-old female that reports low back pain and blood in her urine since yesterday. gb1 She has been very sexually active with her and and states that it has been more difficult to pee after sex. However when she does pee it is painful burning and there is blood. She states that she denies any vaginal bleeding. She has a history of chronic back pain, headache and chronic pain. Patient denies any fever or chills but states that she has been nauseated no vomiting. She denies any diarrhea or other pelvic pain.. Historical: - Allergies: 10:18 GABAPENTIN; ph 10:18 Lyrica; ph 10:18 Prednisone; ph 10:18 tramadol; ph - PMHx: 10:18 chronic back pain; headache; Pain Management; ph - PSHx: 10:18 Back surgery x 4; ph - Immunization history:: Adult Immunizations up to date. - Infectious Disease History:: Denies. - Social history:: Smoking status: Patient denies any tobacco usage or history of. Exam: 14:27 Constitutional: This is a well developed, well nourished patient who is awake, alert, gb1 and in no acute distress. Head/Face: Normocephalic, atraumatic. Eyes: Pupils equal round and reactive to light, extra-ocular motions intact. Lids and lashes normal. Conjunctiva and sclera are non-icteric and not injected. Cornea within normal limits. Periorbital areas with no swelling, redness, or edema. ENT: Nares patent. No nasal discharge, no septal abnormalities noted. Tympanic membranes are normal and external auditory canals are clear. Oropharynx with no redness, swelling, or masses, exudates, or evidence of obstruction, uvula midline. Mucous membranes moist. Neck: Trachea midline, no thyromegaly or masses palpated, and no cervical lymphadenopathy. Supple, full range of motion without nuchal rigidity, or vertebral point tenderness. No Meningismus. Chest/axilla: Normal chest wall appearance and motion. Nontender with no deformity. No lesions are appreciated. Cardiovascular: Regular rate and rhythm with a normal S1 and S2. No gallops, murmurs, or rubs. Normal PMI, no JVD. No pulse deficits. Respiratory: Lungs have equal breath sounds bilaterally, clear to auscultation and percussion. No rales, rhonchi or wheezes noted. No increased work of breathing, no retractions or nasal flaring. Abdomen/GI: Soft, non-tender, with normal bowel sounds. No distension or tympany. No guarding or rebound. No evidence of tenderness throughout. Back: No spinal tenderness. No costovertebral tenderness. Full range of motion. Skin: Warm, dry with normal turgor. Normal color with no rashes, no lesions, and no evidence of cellulitis. MS/ Extremity: Pulses equal, no cyanosis. Neurovascular intact. Full, normal range of motion. Neuro: Awake and alert, GCS 15, oriented to person, place, time, and situation. Cranial nerves II-XII grossly intact. Motor strength 5/5 in all extremities. Sensory grossly intact. Cerebellar exam normal. Normal gait. Psych: Awake, alert, with orientation to person, place and time. Behavior, mood, and affect are within normal limits. Vital Signs: 10:16 BP 125 / 109; Pulse 110; Resp 20; Temp 98.7; Pulse Ox 100% on R/A; Weight 61.23 kg; ph Height 5 ft. 6 in. ; 13:00 BP 100 / 69; Pulse 106; Resp 17; Pulse Ox 100% on R/A; me1 14:00 BP 120 / 77; Pulse 73; Resp 16; Pulse Ox 100% ; me1 14:15 BP 125 / 81; Pulse 103; Resp 17; Temp 98.4; Pulse Ox 100% ; me1 10:16 Body Mass Index 21.79 (61.23 kg, 167.64 cm) ph MDM: 10:20 Medical Screening Exam initiated gb1 14:27 Data reviewed: vital signs, nurses notes, lab test result(s), radiologic studies, CT gb1 scan. ED course: 68-year-old female with concern for hemorrhagic cystitis versus early pyelonephritis. She is afebrile and otherwise well-appearing here as patient does not have any CVA tenderness here. She does have bilateral lumbago. Her urinalysis is turbid and is more clinically correlated to a hemorrhagic cystitis. She denies any vaginal bleeding at this time I doubt an early sign of an ovarian malignancy or a vaginal tear. Patient states that she denies any fever and chills and at this time has a unremarkable abdominal exam I doubt acute appendicitis. I will start her on Keflex as an outpatient for UTI and give her close return precautions to which he is compliant to prior discharge home today.. 12/22 10:21 Order name: CBC with Diff; Complete Time: 14:21 gb1 12/22 10:21 Order name: CMP; Complete Time: 14:21 gb1 12/22 10:21 Order name: Lipase; Complete Time: 14:21 gb1 12/22 10:21 Order name: Urinalysis w/ reflexes; Complete Time: 11:25 gb1 12/22 10:51 Order name: Urine Culture EDNE 12/22 10:24 Order name: Stone Protocol; Complete Time: 11:25 EDMS 12/22 10:21 Order name: IV Saline Lock; Complete Time: 12:24 gb1 12/22 10:21 Order name: Labs collected and sent; Complete Time: 12:24 gb1 Administered Medications: 12:36 Drug: Sodium Chloride 0.9% IVPB 1000 ml IVPB once Route: IVPB; Site: left antecubital; me1 14:00 Follow up: Response: No adverse reaction; IV Status: Completed infusion; IV Intake: me1 1000ml 12:37 Drug: Ketorolac IVP 15 mg IVP once Route: IVP; Site: left antecubital; me1 13:07 Follow up: Response: No adverse reaction; Pain is decreased me1 12:37 Drug: Rocephin - Rocephin (cefTRIAXone) IVPB 2 grams IVPB once over 30 mins; (mix in me1 100 mL NS) Route: IVPB; Infused Over: 30 mins; Site: left antecubital; 13:07 Follow up: Response: No adverse reaction; IV Status: Completed infusion; IV Intake: me1 100ml Disposition Summary: 12/23/23 14:30 Discharge Ordered Notes: Location: Home gb1 Problem: new gb1 Symptoms: have improved gb1 Condition: Stable gb1 Diagnosis - Cystitis, unspecified with hematuria gb1 Followup: gb1 - With: Private Physician - When: - Reason: If symptoms return, Re-evaluation by your physician Discharge Instructions: - Discharge Summary Sheet gb1 - Hemorrhagic Cystitis gb1 Forms: - Medication Reconciliation Form gb1 - Antibiotic Education gb1 - Prescription Opioid Use gb1 - Patient Portal Instructions gb1 - Leadership Thank You Letter gb1 Prescriptions: - Cephalexin 500 mg Oral Capsule - take 1 capsule ORAL route every 12 hours for 10 days; 20 capsule; Refills: 0, gb1 Product Selection Permitted Signatures: Dispatcher [employer] EDAlicia Lowery RN RN Emma Tejada RN RN ar1 Betty Montano MD MD gb1 Corrections: (The following items were deleted from the chart) 10:21 10:21 CBC+H.LAB.BRZ ordered. EDMS EDMS 10:21 10:21 COMPREHENSIVE METABOLIC PANEL+C.LAB.BRZ ordered. EDMS EDMS 10:21 10:21 LIPASE+C.LAB.BRZ ordered. EDMS EDMS 10:21 10:21 Urinalysis+U.LAB.BRZ ordered. EDMS EDMS 10:21 10:21 Abdomen Pelvis Wo Con+CT.RAD.BRZ ordered. EDMS EDMS
[2023-12-23 14:52] VITALS: O2SAT 100
[2023-12-23 15:09] VITALS: BP 125/81; TEMP 98.4
== END 2023-12-23 14:38 | disposition home or self-care (01) ==
LOC: ER 10:06
DX: N30.91 Cystitis, unspecified with hematuria (principal)
CPT/HCPCS: 96365; 87088; 85025; 81001; 87086; 36415; 87077; 87186; 83690; 80053; 76377; 74176; 96375; 99284; J0696; J7030